=== PATIENT | female | born 1955 | race Caucasian/White ===

== ENCOUNTER 2019-06-24 08:24 | Outpatient (CLI) | payer MEDICARE, MEDICAID, SELFPAY ==
--- NOTE | 2019-06-24 08:59 | MM_ITS ---
WS: [id number] BILATERAL DIGITAL DIAGNOSTIC MAMMOGRAM MAMMOGRAPHY WITH CAD CLINICAL INFORMATION: RT BREAST LUMP/MASS COMPARISON: None. TECHNIQUE: Bilateral CC, MLO, and ML views. FINDINGS: Scattered fibroglandular densities bilaterally. Lucent centered calcifications left breast. Asymmetri c breast tissue upper outer right breast. This persists on spot compression views. Ultrasound is pend ing. No mammographic abnormalities in the area of palpable marker near the intramammary fold. Left breast appears unremarkable. ULTRASOUND BREAST RIGHT TECHNIQUE: Ultrasound right breast focused area of concern. CLINICAL INFORMATION: RT BREAST LUMP/MASS COMPARISON: None. FINDINGS: Ultrasound right breast at the inframammary fold 6:00 position. No pathologic mass or lesion in this area. Incidental vessel or duct is seen in this area. AT THE 10:00 POSITION is dense breast tissue with a hypoechoic slightly shadowing ill-defined lesion measuring 1.1 x 0.5 x 1.1 CM. THIS IS INDETERMINANT AND RECOMMEND FURTHER EVALUATION WITH ULTRASOUND- GUIDED BIOPSY. Additional vague ill-defined area at the 11:00 position may represent dense parenchymal tissue but is indeterminant and can be reevaluated when patient returns for biopsy. This area measures 7.3 x 6.9 x 8.1 mm. MM/[place] [id number] IMPRESSION: BI-RADS: 4B-Suspicious: Intermediate FOLLOW UP: US Guided Biopsy Recommended
== END 2019-06-24 08:25 | disposition home or self-care (01) ==
LOC: RADSHAW 08:30
PROVIDERS: Family Provider Family Medicine; PCP Family Medicine; Visit Provider Family Medicine
DX: N63.11 Unspecified lump in the right breast, upper outer quadrant (principal)
CPT/HCPCS: 76642; 77066

== ENCOUNTER → 2019-06-30 10:25 | Outpatient (BNVA) | payer MEDICARE, MEDICAID, SELFPAY | PROVIDERS: Family Provider Family Medicine; PCP Family Medicine; Visit Provider Nurse Practitioner Psychiatric/Mental Health | DX: F33.2 Major depressive disorder, recurrent severe without psychotic features (principal); F41.1 Generalized anxiety disorder | CPT/HCPCS: 90834; 99214; 99215 ==

== ENCOUNTER 2019-07-10 11:56 | Outpatient (CLI) | payer MEDICARE, MEDICAID, SELFPAY ==
--- NOTE | 2019-07-10 12:08 | US_ITS ---
WS: [id number] ULTRASOUND RIGHT BREAST HISTORY: RT BREAST LUMP/MASS COMPARISON: None available. TECHNIQUE: 2-D and Doppler. Patient presents for biopsy of asymmetries in the RIGHT breast at 10 and 11:00. After further ultraso und imaging these asymmetries are very poorly visualized and ill-defined. Cannot identify a discrete mass in 2 views. There does appear to be some prominent fibroglandular and fibrocystic change. At thi s time I do not believe biopsy is warranted. This is explained to the patient and she understands. FOLLOW-UP: 6 Month Follow-up Recommend diagnostic RIGHT breast mammogram and ultrasound follow-up in 6 months. If these asymmetrie s become more prominent and more discrete biopsy can be reconsidered. At this time there is no discre te mass for biopsy. US/US breast RT limited* [id number] IMPRESSION: BI-RADS: 3-Probably Benign
[2019-07-10 12:38] LABS: INR 0.93 (0.8-1.2)
== END 2019-07-10 11:57 | disposition home or self-care (01) ==
LOC: RADSHAW 12:03
PROVIDERS: Family Provider Family Medicine; PCP Family Medicine; Visit Provider Family Medicine
DX: N63.11 Unspecified lump in the right breast, upper outer quadrant (principal); Z01.812 Encounter for preprocedural laboratory examination
CPT/HCPCS: 19083; 36415; 76642; 85610

== ENCOUNTER → 2019-08-06 10:10 | Outpatient (BNVA) | payer MEDICARE, MEDICAID, SELFPAY | PROVIDERS: Family Provider Family Medicine; PCP Family Medicine; Visit Provider Social Worker | DX: F33.2 Major depressive disorder, recurrent severe without psychotic features (principal); F41.1 Generalized anxiety disorder | CPT/HCPCS: 90834 ==

== ENCOUNTER → 2019-09-22 08:13 | Outpatient (BNVA) | payer MEDICARE, MEDICAID, SELFPAY | PROVIDERS: Family Provider Family Medicine; PCP Family Medicine; Visit Provider Nurse Practitioner Psychiatric/Mental Health | DX: F33.2 Major depressive disorder, recurrent severe without psychotic features; F41.1 Generalized anxiety disorder | CPT/HCPCS: 99212 ==

== ENCOUNTER → 2019-09-24 13:50 | Outpatient (BNVA) | payer MEDICARE, MEDICAID, SELFPAY | PROVIDERS: Family Provider Family Medicine; PCP Family Medicine; Visit Provider Social Worker | DX: F33.2 Major depressive disorder, recurrent severe without psychotic features (principal); F41.1 Generalized anxiety disorder | CPT/HCPCS: 90832 ==

== ENCOUNTER 2019-11-17 13:49 | Outpatient (CLI) | payer MEDICARE, MEDICAID, SELFPAY ==
--- NOTE | 2019-11-17 13:58 | XR_ITS ---
WS: [id number] XR hip LT 2-3V wo/w pel* [id number] REASON FOR EXAM: LEFT HIP PAIN FINDINGS: The femoral head acetabulum appear to be within normal limits. The ilium, ischium, and pubis were normal. No fractures of the head, neck, are intertrochanteric area. The symphysis pubii shows degenerate changes. XR/XR hip LT 2-3V wo/w pel* [id number] IMPRESSION: Negative left hip Degenerate changes of the symphysis.
--- NOTE | 2019-11-17 13:58 | XR_ITS ---
WS: [id number] XR lumbar spine 2-3V* [id number] REASON FOR EXAM: LOW BACK PAIN/LEFT LUMBAR RADICULOPATHY FINDINGS: Degenerated disc changes L3-4, L4-5, L5-S1. No evidence of spondylolysis or spondylolisthesis. Lumbosacral angle was essentially normal. The lamina, pedicles, spinous processes transverse processes are all normal. XR/XR lumbar spine 2-3V* [id number] IMPRESSION: Degenerated disc changes L3-L4, L4-L5, L5-S1.
== END 2019-11-17 13:50 | disposition home or self-care (01) ==
LOC: RAD 13:54
PROVIDERS: PCP Family Medicine; Visit Provider Family Medicine
DX: M54.5 Low back pain (principal); M54.16 Radiculopathy, lumbar region; M25.552 Pain in left hip
CPT/HCPCS: 72100; 73502

== ENCOUNTER → 2019-12-01 07:44 | Outpatient (BNVA) | payer MEDICARE, MEDICAID, SELFPAY | PROVIDERS: PCP Family Medicine; Visit Provider Nurse Practitioner Psychiatric/Mental Health | DX: G89.29 Other chronic pain (principal); F33.2 Major depressive disorder, recurrent severe without psychotic features; F41.1 Generalized anxiety disorder | CPT/HCPCS: 99212 ==

== ENCOUNTER 2019-12-28 11:10 | Observation (INO) | payer MEDICARE, MEDICAID, SELFPAY ==
[2019-12-28] VITALS (12 sets, daily range): BP systolic 110–168; BP diastolic 66–107; PULSE 77–126; RESP 16–20; TEMP 36.6–37; O2SAT 92–98; BMI 45.6
--- NOTE | 2019-12-28 11:24 | ECG_ITS ---
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 Measurements Intervals [place] Rate: 106 P: MD: -1 QRS: 6 QRSD: 104 T: 63 QT: 364 QTc: 485 Interpretive Statements Sinus rhythm with PACs and PVCs. NONSPECIFIC ST & T-WAVE ABNORMALITY ABNORMAL RHYTHM ECG Compared to ECG 12/03/2018 17:18:57 Ventricular premature complex(es) now present T-wave abnormality now present Myocardial infarct finding no longer present Electronically Signed On 12-28-2019 19:06:16 CDT by Fabricio Rubi M.D. [email or web address] [email or web address].[email or web address]/store/OM/[id number]
--- NOTE | 2019-12-28 11:24 | XRR_ITS ---
PROCEDURE INFORMATION: Exam: XR Chest, 1 View Exam date and time: 12/28/2019 11:25 AM Age: 64 years old Clinical indication: Cardiovascular condition or disease; Atrial fibrillation; Additional info: Cp TECHNIQUE: Imaging protocol: XR of the chest Views: 1 view. COMPARISON: CR Chest 1 [place] [id number] 12/03/2018 6:52 PM FINDINGS: Lungs: Interval resolution of airspace disease in the left lingula and left lower lobe. Lungs are clear bilaterally. Pleural space: Interval resolution of a left pleural effusion. No pleural effusion. No pneumothorax. Heart/Mediastinum: Stable mild enlargement of the cardiac silhouette. Mediastinal contours are unremarkable. Vasculature: Stable vascular calcifications in the aorta. Bones/joints: Stable degenerative changes in the spine and shoulders. XR/XR chest 1V portable [id number] IMPRESSION: 1. No acute cardiopulmonary process. 2. Interval resolution of airspace disease in the left lingula and left lower lobe. 3. Interval resolution of a left pleural effusion. 4. Incidental/nonacute findings are listed in the report.
[2019-12-28 11:49] LABS: Basophils # 0.1 10^3/uL (0.0-0.1); Basophils % 0.9 %; Eosinophils # 0.4 10^3/uL (0.0-0.8); Eosinophils % 3.3 %; Hematocrit 51.8 % (37.0-47.0); Hemoglobin 16.8 g/dL (11.5-15.3); Lymphocytes # 2.5 10^3/uL (0.8-4.8); Lymphocytes % 22.1 %; Mean Corpuscular HGB Conc 32.4 g/dL (30.0-36.0); Mean Corpuscular Hemoglobin 27.3 pg (28.0-34.0); Mean Corpuscular Volume 84.2 fL (81-99); Mean Platelet Volume 11.1 fL (7.4-10.4); Monocytes # 0.9 10^3/uL (0.2-0.9); Monocytes % 7.7 %; Neutrophils % 65.6 %; Nucleated Red Blood Cells % 0 %; Platelet Count 293 10^3/cmm (130-400); Red Blood Count 6.15 10^6/uL (4.1-5.3); White Blood Count 11.1 10^3/uL (4.0-10.0)
--- NOTE | 2019-12-28 11:57 | W.ED.ARRPALP ---
HPI - Arrhythmia/Palpitations General: Chief Complaint: Arrhythmia/Palpitations Stated Complaint: ERRATIC HR/SOB/WEAKNESS Time Seen by Provider: 12/28/19 11:19 Source: patient Mode of arrival: ambulatory Limitations: no limitations History of Present Illness: HPI narrative: 64-year-old female who has a history of A. fib states she has had slight weakness along with palpitations today. She denies any worsening or improving factors. She had some mild chest pain as well. She denies any fevers or vomiting. Patient is in A. fib with heart rates in the 1 teens. Associated symptoms: Deny nausea or vomiting Review of Systems Const: Denies: fever(s), chills, body aches or change in appetite Eyes: Denies: blurry vision or eye discomfort ENMT: Denies: throat pain or dental pain Card: Reports: chest pain and palpitations Resp: Reports: dyspnea GI: Denies: abdominal pain, nausea, vomiting or diarrhea : Denies: dysuria Musc: Reports: muscle weakness Skin/Breast: Denies: rash Neuro: Denies: headache(s) Psych: Denies: depression David/Lymph: Denies: easy bruising All/Imm: Denies: urticaria PFSH ED PFSH: Medical History CAD (coronary artery disease) HTN (hypertension) Hypercholesteremia Surgical History H/O cardiac radiofrequency ablation Family History Mother Cancer breast Stroke Brother Heart disease Asthma Cancer prostate Sister Heart disease Social History Smoking and tobacco status: never smoked Alcohol intake: never Physical Exam Const: COMMON NORMALS: no acute distress, patient oriented x3 and healthy appearing HENMT: COMMON NORMALS: normocephalic and atraumatic HEAD & SCALP: normocephalic and atraumatic Eye: COMMON NORMALS: Equal, round and reactive pupils present and EOMs intact bilaterally PUPIL: Yes Equal, round and reactive pupils present Neck/C-Spine: COMMON NORMALS: full ROM and supple Chest: COMMONS NORMALS: normal inspection of the chest and normal palpation of entire chest wall Resp: COMMON NORMALS: normal respiratory effort, No retractions, No use of accessory muscles and clear to auscultation bilaterally AUSCULTATION: clear to auscultation bilaterally Cardio: COMMON NORMALS: No murmurs present (Cardio) RATE: tachycardic RHYTHM: abnormal rhythm irregularly irregular GI: COMMON NORMALS: Normal to inspection, nondistended, normoactive bowel sounds present, Soft to palpation, non-tender and no masses PALPATION: Yes Soft to palpation Extremity: COMMON NORMALS: normal to inspection and full ROM Neuro: COMMON NORMALS: patient oriented x3, moves all extremities and no focal motor deficits Psych: COMMON NORMALS: mental status grossly normal, Normal thought process present and cooperative THOUGHT PROCESS: Normal thought process present Skin: COMMON NORMALS: no rashes or lesions noted and no wounds GENERAL SKIN EXAM: no rashes or lesions noted Course Vital Signs: Vital signs: Vital Signs Temperature 97.8 F 12/28/19 11:22 Pulse Rate 107 H 12/28/19 14:42 Respiratory Rate 18 12/28/19 14:42 Blood Pressure 154/77 12/28/19 14:42 Pulse Oximetry 98 12/28/19 14:42 MDM - Arrhythmia/Palpitations MDM Narrative: Medical decision making narrative: Shauna presents here with palpitations and was in A. fib with RVR with heart rates in the 120s. Patient given 10 mg of Cardizem and heart rate is improved to the 80s. Patient still having generalized weakness and I spoke to hospitalist and will admit for observation. Second troponin is unchanged with no signs of acute coronary syndrome. Lab Data: Labs: Lab Results 12/28/19 12/28/19 12/28/19 Range/Units 11:37 11:37 11:37 WBC 11.1 H (4.0-10.0) 10^3/ uL RBC 6.15 H (4.1-5.3) 10^6/u L Hgb 16.8 H (11.5-15.3) g/dL Hct 51.8 H (37.0-47.0) % MCV 84.2 (81-99) fL MCH 27.3 L (28.0-34.0) pg MCHC 32.4 (30.0-36.0) g/dL RDW 15.0 (12.1-15.1) % Plt Count 293 (130-400) 10^3/c mm MPV 11.1 H (7.4-10.4) fL Neut % (Auto) 65.6 % Lymph % (Auto) 22.1 % [place] % (Auto) 7.7 % Eos % (Auto) 3.3 % Baso % (Auto) 0.9 % Neut # (Auto) 7.30 (1.8-7.7) 10^3/u L Lymph # (Auto) 2.5 (0.8-4.8) 10^3/u L [place] # (Auto) 0.9 (0.2-0.9) 10^3/u L Eos # (Auto) 0.4 (0.0-0.8) 10^3/u L Baso # (Auto) 0.1 (0.0-0.1) 10^3/u L Nucleated RBC % (a uto) 0 % Nucleated RBCs # 0.0 /100WBC Sodium 134 L (136-145) mmol/L Potassium 3.0 L (3.5-5.1) mmol/L Chloride 86 L (98-107) mmol/L Carbon Dioxide 32 H (22-29) mmol/L Anion Gap 19.0 (5-19) BUN 47 H (8-23) mg/dL Creatinine 1.7 H (0.5-0.9) mg/dL GFR Calculation 30.2 L (90-130) mL/min Glucose 325 H (65-115) mg/dL Calculated Osmolal ity 289 (285-295) mOsm/k g Calcium 10.2 (8.5-10.5) mg/dL Total Bilirubin 0.4 (0.15-1.2) mg/dL AST 21 (0-32) U/L ALT 22 (0-33) U/L Alkaline Phosphata se 89 (35-105) IU/L Troponin T Baselin e 31 H (0-10) ng/L Troponin T 120 Min [place] (0-10) ng/L Delta Troponin T (0-10) ABS# NT-Pro-B Natriuret Pep 420 H (0-125) pg/mL Total Protein 7.2 (6.6-8.7) g/dL Albumin 4.3 (3.5-5.2) g/dL Globulin 2.9 (1.3-4.6) g/dL 12/28/19 Range/Units 13:40 WBC (4.0-10.0) 10^3/ uL RBC (4.1-5.3) 10^6/u L Hgb (11.5-15.3) g/dL Hct (37.0-47.0) % MCV (81-99) fL MCH (28.0-34.0) pg MCHC (30.0-36.0) g/dL RDW (12.1-15.1) % Plt Count (130-400) 10^3/c mm MPV (7.4-10.4) fL Neut % (Auto) % Lymph % (Auto) % [place] % (Auto) % Eos % (Auto) % Baso % (Auto) % Neut # (Auto) (1.8-7.7) 10^3/u L Lymph # (Auto) (0.8-4.8) 10^3/u L [place] # (Auto) (0.2-0.9) 10^3/u L Eos # (Auto) (0.0-0.8) 10^3/u L Baso # (Auto) (0.0-0.1) 10^3/u L Nucleated RBC % (a uto) % Nucleated RBCs # /100WBC Sodium (136-145) mmol/L Potassium (3.5-5.1) mmol/L Chloride (98-107) mmol/L Carbon Dioxide (22-29) mmol/L Anion Gap (5-19) BUN (8-23) mg/dL Creatinine (0.5-0.9) mg/dL GFR Calculation (90-130) mL/min Glucose (65-115) mg/dL Calculated Osmolal ity (285-295) mOsm/k g Calcium (8.5-10.5) mg/dL Total Bilirubin (0.15-1.2) mg/dL AST (0-32) U/L ALT (0-33) U/L Alkaline Phosphata se (35-105) IU/L Troponin T Baselin e (0-10) ng/L Troponin T 120 Min [place] 30.18 H (0-10) ng/L Delta Troponin T -0.82 L (0-10) ABS# NT-Pro-B Natriuret Pep (0-125) pg/mL Total Protein (6.6-8.7) g/dL Albumin (3.5-5.2) g/dL Globulin (1.3-4.6) g/dL Imaging Data^: CXR: Radiologist's impression: [address] [address] XRay Report Signed Patient: Shauna Sena Unit #: [id number] : 1955 Age/Sex: 64 / F ADM Date: 12/28/19 Loc: ER Room/Bed: Attending Dr: Ordering Provider/Ordering MD: Nadeem Fontaine MD Date of Service: 12/28/19 Procedure(s): XR chest 1V portable [id number] Accession Number(s): [id number] Report Number: [id number] PROCEDURE INFORMATION: Exam: XR Chest, 1 View Exam date and time: 12/28/2019 11:25 AM Age: 64 years old Clinical indication: Cardiovascular condition or disease; Atrial fibrillation; Additional info: Cp TECHNIQUE: Imaging protocol: XR of the chest Views: 1 view. COMPARISON: CR Chest 1 [place] [id number] 12/03/2018 6:52 PM FINDINGS: Lungs: Interval resolution of airspace disease in the left lingula and left lower lobe. Lungs are clear bilaterally. Pleural space: Interval resolution of a left pleural effusion. No pleural effusion. No pneumothorax. Heart/Mediastinum: Stable mild enlargement of the cardiac silhouette. Mediastinal contours are unremarkable. Vasculature: Stable vascular calcifications in the aorta. Bones/joints: Stable degenerative changes in the spine and shoulders. XR/XR chest 1V portable [id number] IMPRESSION: 1. No acute cardiopulmonary process. 2. Interval resolution of airspace disease in the left lingula and left lower lobe. 3. Interval resolution of a left pleural effusion. 4. Incidental/nonacute findings are listed in the report. EKG Data^: EKG 1: Attestation: I personally reviewed and interpreted this EKG as follows: EKG interpretation date: 12/28/19 EKG interpretation time: 11:40 Interpretation: afib hr [address] or t wave abnormalities qrs 104 qtc 426 Other EKG comments: Chest X-Ray 12/28/19 11:24 IMPRESSION: 1. No acute cardiopulmonary process. 2. Interval resolution of airspace disease in the left lingula and left lower lobe. 3. Interval resolution of a left pleural effusion. 4. Incidental/nonacute findings are listed in the report. EKG 2: Attestation: I personally reviewed and interpreted this EKG as follows: EKG interpretation date: 12/28/19 EKG interpretation time: 13:36 Interpretation: afib hr [address] or t wave avnormalities qrs 106 qtc 441 Other EKG comments: Chest X-Ray 12/28/19 11:24 IMPRESSION: 1. No acute cardiopulmonary process. 2. Interval resolution of airspace disease in the left lingula and left lower lobe. 3. Interval resolution of a left pleural effusion. 4. Incidental/nonacute findings are listed in the report. Discharge Plan Discharge Patient Disposition: Admitted As Inpatient Clinical Impression: Weakness Atrial fibrillation Qualifiers: Atrial fibrillation type: unspecified Qualified Code(s): I48.91 - Unspecified atrial fibrillation Condition: Stable Referrals: Farhat Acosta MD [Primary Care Provider] - Coding Level of Care Code ED Health And Fitness Instructor for Chg Fwd Exam Comprehensive
[2019-12-28 12:17] LABS: Troponin(5th) Baseline 31 ng/L (0-10)
[2019-12-28 12:24] LABS: Alanine Aminotransferase 22 U/L (0-33); Albumin Level 4.3 g/dL (3.5-5.2); Alkaline Phosphatase 89 IU/L (35-105); Aspartate Amino Transferase 21 U/L (0-32); Blood Urea Nitrogen 47 mg/dL (8-23); Calcium 10.2 mg/dL (8.5-10.5); Carbon Dioxide 32 mmol/L (22-29); Chloride 86 mmol/L (98-107); Globulin 2.9 g/dL (1.3-4.6); Glomerular Filtration Rate 30.2 mL/min (90-130); Glucose 325 mg/dL (65-115); NT Pro B Type Natriuretic Pept 420 pg/mL (0-125); Osmolality Calculated 289 mOsm/kg (285-295); Sodium 134 mmol/L (136-145); Total Bilirubin 0.4 mg/dL (0.15-1.2); Total Protein 7.2 g/dL (6.6-8.7)
--- NOTE | 2019-12-28 13:24 | ECG_ITS ---
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 Measurements Intervals [place] Rate: 106 P: 102 AL: 115 QRS: 7 QRSD: 106 T: 54 QT: 379 QTc: 506 Interpretive Statements SINUS TACHYCARDIA WITH SHORT AL INTERVAL WITH FREQUENT SUPRAVENTRICULAR PREMATURE COMPLEXES NONSPECIFIC ST & T-WAVE ABNORMALITY ABNORMAL RHYTHM ECG Compared to ECG 12/28/2019 12:06:13 Short AL interval now present Atrial fibrillation no longer present T-wave abnormality still present Electronically Signed On 12-28-2019 19:10:08 CDT by Fabricio Rubi M.D. [email or web address].[employer]/store/OM/[id number]
[2019-12-28 14:08] LABS: Troponin 5 2HR 30.18 ng/L (0-10)
[2019-12-28 14:18] LABS: Troponin 5 2HR Delta -0.82 ABS# (0-10)
[2019-12-28] MEDS: potassium chloride ER 10 mEq Tablet 40 MEQ PO ×2 (14:42→20:49)
--- NOTE | 2019-12-28 14:46 | P.HP_ITS ---
Providers/Chief Complaint Primary Care Provider: Farhat Acosta MD Chief Complaint: ERRATIC HR/SOB/WEAKNESS History of Present Illness Shauna Sena is a 64 year old female who presents to the emergency department with feeling palpitations, significant weakness and dizziness for at least a week. She reports she has been a little nauseated as well. Some headache. No recent falls. Denies any fever, cough, COVID exposure. Denies any chest pain. No blood in her stool or black or tarry stools. She reports she has been taking her medicines as prescribed. While in the emergency department she was found to have a low potassium of 3.0. Heart rate was elevated consistent with atrial fibrillation with rapid ventricular rate and she received Cardizem 10 mg IV. Review of Systems Const: Reports: malaise; Denies: fever(s) Eyes: Denies: change in vision ENMT: Denies: throat pain Card: Reports: palpitations and lightheadedness; Denies: chest pain or syncope Resp: Denies: dyspnea GI: Denies: abdominal pain : Denies: flank pain Musc: Denies: neck pain Skin/Breast: Denies: rash Neuro: Reports: headache(s) Psych: Denies: anxiety Endo: Denies: polyuria David/Lymph: Denies: easy bruising All/Imm: Denies: urticaria Medications/Allergies Home Medications Medication Instructions Recorded Confirmed Last Taken Type albuterol sulfate 90 mcg/actuation 2 puff INHALATION Q6H PRN 06/30/19 12/28/19 Unknown History aerosol inhaler allopurinol 300 mg tablet 300 mg PO DAILY tab 06/30/19 12/28/19 12/28/19 History apixaban 5 mg tablet 5 mg PO BID 06/30/19 12/28/19 12/28/19 History docusate sodium 100 mg tablet 100 mg PO BID 06/30/19 12/28/19 12/27/19 History furosemide 40 mg tablet 80 mg PO BID tab 06/30/19 12/28/19 12/28/19 History hydrocodone 5 mg-acetaminophen 325 1 - 2 tab PO Q8H PRN tab 06/30/19 12/28/19 Unknown History mg tablet metoprolol tartrate 50 mg tablet 50 mg PO BID 06/30/19 12/28/19 12/28/19 History nitroglycerin 0.4 mg sublingual 0.4 mg SUBLINGUAL Q5M PRN 06/30/19 12/28/19 Unknown History tablet potassium chloride 20 mEq 20 meq PO BID 06/30/19 12/28/19 12/28/19 History tablet,extended release pregabalin 150 mg capsule 150 mg PO BEDTIME cap 06/30/19 12/28/19 12/27/19 History simvastatin 80 mg tablet 80 mg PO DAILY 06/30/19 12/28/19 12/27/19 History clopidogrel 75 mg tablet 75 mg PO DAILY tab 09/19/19 12/28/19 12/28/19 History levothyroxine 50 mcg capsule 50 mcg PO DAILY cap 09/19/19 12/28/19 12/28/19 History insulin human U-100 NPH-regulr 50 unit SUBCUT BID ml 11/14/19 12/28/19 12/28/19 History 70-30 mix 100 unit/mL subcutaneous susp buspirone 10 mg tablet 10 mg PO TID #90 tab 12/01/19 12/28/19 12/28/19 Rx lorazepam 1 mg tablet 1 mg PO ONCE PRN #30 tab MDD daily 12/02/19 12/28/19 Unknown Rx cyclobenzaprine 10 mg PO Q8H PRN 12/28/19 12/28/19 Unknown History diltiazem HCl 120 mg PO DAILY 12/28/19 12/28/19 12/28/19 History insulin glargine [Lantus U-100 70 unit SUBCUT DAILY 12/28/19 12/28/19 12/28/19 History Insulin] metolazone 5 mg PO BID 12/28/19 12/28/19 12/28/19 History sertraline 150 mg PO DAILY 12/28/19 12/28/19 12/27/19 History Allergies Allergy/AdvReac Type Severity Reaction Status Date / Time morphine Allergy Severe Quit Verified 12/28/19 12:29 breathing shellfish derived AdvReac Severe Hives & Verified 12/28/19 12:29 throat swells meperidine [From Demerol] AdvReac Intermediate Made N & V Verified 12/28/19 12:29 Penicillins AdvReac Intermediate RAsh Verified 12/28/19 12:29 PFSH Acute PFSH: Medical History (Updated 12/28/19 @ 15:13 by Surinder Farrar MD) Amiodarone pulmonary toxicity CAD (coronary artery disease) Last echocardiogram 08/06 with EF of 50% Chronic pain She reports taking pain medicines and muscle relaxers for a recent back injury; she has chronic left leg pain. Chronic respiratory failure CKD (chronic kidney disease) Depression Diabetes mellitus Fibromyalgia Gout HTN (hypertension) Hypercholesteremia Hyperlipidemia Hypothyroidism Major depressive disorder, recurrent severe without psychotic features Surgical History (Updated 12/28/19 @ 14:50 by Surinder Farrar MD) H/O cardiac radiofrequency ablation H/O section H/O eye surgery H/O left knee surgery History of back surgery History of carpal tunnel release History of coronary artery stent placement History of hysterectomy partial Hx of cholecystectomy Family History Mother Cancer breast Stroke Brother Heart disease Asthma Cancer prostate Sister Heart disease Social History (Updated 12/28/19 @ 14:51 by Surinder Farrar MD) Smoking and tobacco status: never smoked Alcohol intake: never Substance/Drug Use: never Vitals/I&O/Wt Last Vital Signs Temp 97.8 F 12/28/19 11:22 Pulse 107 H 12/28/19 14:42 Resp 18 12/28/19 14:42 BP 154/77 12/28/19 14:42 Pulse Ox 98 12/28/19 14:42 Weight last 48 hrs Weight 136.078 kg Physical Exam Narrative: EXAM NARRATIVE: General exam is a white female, who reports she is tired and has a headache, in no obvious distress HEENT: Pupils equally round. Oropharynx is clear. Neck is supple no lymphadenopathy or thyromegaly Cardiovascular regular rate and rhythm without murmur, no S3 or S4 Lungs clear. Diminished breath sounds are noted bilaterally. No wheezes. Abdomen is soft, obese. No obvious organomegaly was deferred Extremities no cyanosis clubbing or edema, refill brisk Skin no rash Neuro no focal deficits Data : 12/28/19 11:37 12/28/19 11:37 Other data: Initial EKG demonstrates atrial fibrillation with rapid ventricular rate with a heart rate of about 110 with normal axis and nonspecific ST-T wave changes. Chest x-ray is negative for any infiltrate Troponin elevated at 31 with repeat of 30.1 indicating no significant delta. BNP elevated at 420, improved from last BNP done in mid November of 710. LFTs normal A&P Assessment and plan (1) Atrial fibrillation: With rapid ventricular rate in the emergency department. She received Cardizem 10 mg IV x1 with good results. Continue the patient's home Cardizem 120 mg extended release once daily Increase patient's home metoprolol from 50 to 75 mg twice daily Monitor heart rate on telemetry. Check TSH Continue Eliquis for anticoagulation Telemetry Status: Acute Qualifiers: Atrial fibrillation type: unspecified Qualified Code(s): I48.91 - Unspecified atrial fibrillation (2) Hypokalemia: Replace potassium. She received 1 oral dose in the emergency department of 40 mEq. I will write for another one in approximately 6 hours. Check magnesium level Status: Acute (3) Weakness: I think this is likely secondary to her hypokalemia and atrial fib rillation. Monitor for improvement. Status: Acute Additional A&P Information Elevated troponin. Type II. No evidence of acute myocardial infarction. No concerning EKG changes. Patient has no chest pain. 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 Continue oxygen currently. Chronic kidney disease. May have an acute component. Hold Zaroxolyn. Type 2 diabetes. Continue long-acting insulin. Add sliding scale. Hypertension. Continue home medicines Possible history of CHF. I could not confirm but she is on quite a bit of diuretics. Continue Lasix but hold metolazone currently as renal function may be slightly worse, and she does not appear to be significantly fluid overloaded. Hypothyroidism, check TSH Multiple other medical problems as outlined in past medical history Full code Eliquis will suffice for DVT prophylaxis Attestations Medical Necessity Statement*: Will need less than 2 midnight stay for evaluation of atrial fibrillation with rapid ventricular rate and hypokalemia Time Spent in Patient Care: Greater than 35 minutes Coding Level of Care Code Acute Nursing Executive for Gerson Morgan Diagnoses Atrial fibrillation I48.91 Atrial fibrillation type: unspecified Hypokalemia E87.6 Weakness R53.1
[2019-12-28] MEDS: HYDROcodone-acetaminophen 5-325 mg Tablet 2 TAB PO (14:55)
[2019-12-28] MEDS: ondansetron 2 mg/ML SDV 2 mL 4 MG IVP ×2 (14:55→15:08)
[2019-12-28] MEDS: ketorolac 30 mg/mL INJ 15 MG IVP (15:08)
[2019-12-28 15:24] LABS: Magnesium 1.9 mg/dL (1.7-2.3); Thyroid Stimulating Hormone 2.02 uIU/mL (0.27-4.20)
[2019-12-28 15:55] LABS: Glucose Point of Care 368 mg/dL (70-110)
--- NOTE | 2019-12-28 17:24 | ECG_ITS ---
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 Measurements Intervals [place] Rate: 105 P: IN: -1 QRS: 11 QRSD: 108 T: 63 QT: 389 QTc: 516 Interpretive Statements Multifocal atrial tachycardia NONSPECIFIC ST & T-WAVE ABNORMALITY ABNORMAL RHYTHM ECG Compared to ECG 12/28/2019 11:40:29 Ventricular premature complex(es) no longer present Aberrant conduction of supraventricular beat(s) no longer present T-wave abnormality still present Electronically Signed On 12-28-2019 19:09:45 CDT by Fabricio Rubi M.D. [id number]
[2019-12-28] MEDS: metoprolol tartrate 50 mg Tablet 75 MG PO (17:35)
[2019-12-28] MEDS: apixaban 5 mg Tablet PO (17:35)
[2019-12-28] MEDS: FUROsemide 40 mg Tablet 80 MG PO (17:35)
[2019-12-28] MEDS: potassium chloride ER 10 mEq Tablet 20 MEQ PO (17:35)
[2019-12-28] MEDS: docusate sodium 100 mg Capsule PO (17:36)
[2019-12-28] MEDS: BuSPIRONE 10 mg Tablet PO ×2 (17:36→20:48)
[2019-12-28 17:56] LABS: Troponin 5 6HR 32.13 ng/L (0-10); Troponin 5 6HR Delta 1.13 ng/L (0-12)
[2019-12-28 18:12] LABS: Add Urine Microscopic? NO
[2019-12-28 18:22] LABS: Bilirubin Urine Neg (NEGATIVE); Blood Urine Neg (Negative); Glucose Urine UA 4+ (Normal); Ketones Urine Negative (Negative); Leukocyte Esterase Urine Negative (Negative); Nitrate Urine Negative (Negative); Protein Urine Neg (Negative); Urine Appearance Clear (CLEAR); Urine Color Straw (Yellow); Urobilinogen Urine Norm (Negative); pH Urine 5 (5-7)
--- NOTE | 2019-12-28 19:26 | PC.NURSE ---
Rounding: Patient is resting in bed watching TV. Patient denies any pain or needs at this time. Will continue to montior.
[2019-12-28 20:39] LABS: Glucose Point of Care 363 mg/dL (70-110)
[2019-12-28] MEDS: pregabalin 150 mg Capsule PO (20:49)
[2019-12-29] VITALS (7 sets, daily range): BP systolic 113–142; BP diastolic 72–81; PULSE 73–82; RESP 16–19; TEMP 36.4–36.8; O2SAT 95–97
[2019-12-29 04:12] LABS: Basophils # 0.1 10^3/uL (0.0-0.1); Basophils % 0.8 %; Eosinophils # 0.6 10^3/uL (0.0-0.8); Eosinophils % 6.7 %; Hematocrit 49.5 % (37.0-47.0); Hemoglobin 15.9 g/dL (11.5-15.3); Lymphocytes # 1.8 10^3/uL (0.8-4.8); Lymphocytes % 19.5 %; Mean Corpuscular HGB Conc 32.1 g/dL (30.0-36.0); Mean Corpuscular Hemoglobin 28.1 pg (28.0-34.0); Mean Corpuscular Volume 87.6 fL (81-99); Mean Platelet Volume 11.4 fL (7.4-10.4); Monocytes # 0.9 10^3/uL (0.2-0.9); Monocytes % 9.2 %; Neutrophils # 5.98 10^3/uL (1.8-7.7); Neutrophils % 63.3 %; Nucleated Red Blood Cells % 0 %; Platelet Count 259 10^3/cmm (130-400); Red Blood Count 5.65 10^6/uL (4.1-5.3); Red Cell Distribution Width 15.1 % (12.1-15.1); White Blood Count 9.5 10^3/uL (4.0-10.0)
[2019-12-29 04:34] LABS: Alanine Aminotransferase 18 U/L (0-33); Albumin Level 3.8 g/dL (3.5-5.2); Alkaline Phosphatase 80 IU/L (35-105); Anion Gap 16.1 (5-19); Aspartate Amino Transferase 18 U/L (0-32); Blood Urea Nitrogen 55 mg/dL (8-23); Calcium 9.9 mg/dL (8.5-10.5); Carbon Dioxide 33 mmol/L (22-29); Chloride 91 mmol/L (98-107); Globulin 2.8 g/dL (1.3-4.6); Glomerular Filtration Rate 26.5 mL/min (90-130); Glucose 250 mg/dL (65-115); Osmolality Calculated 291 mOsm/kg (285-295); Potassium 3.1 mmol/L (3.5-5.1); Sodium 137 mmol/L (136-145); Total Bilirubin 0.3 mg/dL (0.15-1.2); Total Protein 6.6 g/dL (6.6-8.7)
--- NOTE | 2019-12-29 05:47 | PC.NURSE ---
End of shift: Patient had a uneventful shift. Patient rested well. PAtient had no complaints of pain or discomfort. Vitals remains stable.
[2019-12-29 06:24] LABS: Glucose Point of Care 285 mg/dL (70-110)
[2019-12-29] MEDS: metoprolol tartrate 50 mg Tablet 75 MG PO ×2 (08:07→17:03)
[2019-12-29] MEDS: FUROsemide 40 mg Tablet 80 MG PO ×2 (08:07→17:02)
[2019-12-29] MEDS: sertraline 100 mg Tablet 150 MG PO (08:08)
[2019-12-29] MEDS: levothyroxine 50 mcg Tablet PO (08:09)
[2019-12-29] MEDS: apixaban 5 mg Tablet PO ×2 (08:09→17:02)
[2019-12-29] MEDS: potassium chloride ER 10 mEq Tablet 20 MEQ PO (08:10)
[2019-12-29] MEDS: allopurinol 300 mg Tablet PO (08:10)
[2019-12-29] MEDS: insulin glargine 100 units/1 mL 70 UNIT SUBCUT (08:10)
[2019-12-29] MEDS: docusate sodium 100 mg Capsule PO ×2 (08:10→17:02)
[2019-12-29] MEDS: BuSPIRONE 10 mg Tablet PO ×2 (08:10→14:14)
[2019-12-29] MEDS: dilTIAZem ER (24HR) 120 mg Capsule PO (08:10)
[2019-12-29] MEDS: clopidogrel 75 mg Tablet PO (08:10)
[2019-12-29] MEDS: atorvastatin 40 mg Tablet 80 MG PO (08:10)
--- NOTE | 2019-12-29 08:50 | PC.NURSE ---
[id number] DR Acosta at bedside for assessment and POC; wound cultures collected from Panchito peters and Arthur barragan
[2019-12-29] MEDS: levofloxacin-dextrose 5 % 500 MG/100 ML PREMIX 100 MG IV (09:04)
[2019-12-29] MEDS: potassium chloride ER 10 mEq Tablet 40 MEQ PO ×2 (09:05→17:02)
--- NOTE | 2019-12-29 10:13 | PC.CHAP ---
Pastoral Care Encounter/Spiritual Assessment Type of Contact [] Declined diploma pharmacy technician visit [] Patient/Family/Request visit [] Outpatient visit [] Follow-up visit [] Physician referral [] Code/Alert [x] Routine visit [] Staff referral [] Actively dying [] Patient sleeping [] Family support [] [] Out of room [] Palliative care [] [] Receiving care in room [] Pre-surgical visit [] Trauma [] Long length of stay [] ICU visit [] Other: Relational/Emotional Strength [x] Patient feels connected with others/family/visitors/staff [] Distress [] Loneliness/isolation [] Abandonment Spirituality of Patient [x] Person of [place] [] Attends Judaism of their [place] [x] Believes in Prayer [] Reads Bible or Anabaptism materials [] There are Spiritual issues to be addressed Rectification Printer Interventions [x] Prayer [] Active listening [] Non-anxious presence [] Spiritual/emotional support [] Crisis/trauma care []x Spiritual counseling [] Bereavement support [] Provided bereavement packet [] Provided Bible/devotional materials [] Provided toy/stuffed animal, coloring book to patient or family member [] Provided Communion [] Anointing/Voca [] Salvation [] Completed spiritual assessment [] Other: Impact on Illness or Injury [] Angry [] Fearful [] Anxious [] Often cries [] Exhaustion [] Unable to work [] Unable to attend baptist [] Unable to walk/stand [] Unable to read [] Unable to drive [] Unable to eat/drink [] Unable to sleep [] Unable to be with family [] Patient intubated [] Other: Summary feeling better Time spent with patient 10 min
[2019-12-29 11:20] LABS: Glucose Point of Care 409 mg/dL (70-110)
--- NOTE | 2019-12-29 13:21 | PC.NURSE ---
Visitor Audrey Prasad Daughter phone number [phone]
[2019-12-29] MEDS: acetaminophen 325 mg Tablet 650 MG PO (15:01)
--- NOTE | 2019-12-29 15:45 | PC.NURSE ---
PT at bedside for treatment.
[2019-12-29 16:08] LABS: Glucose Point of Care 314 mg/dL (70-110)
[2019-12-29 16:28] LABS: Anion Gap 14.3 (5-19); Blood Urea Nitrogen 48 mg/dL (8-23); Calcium 9.3 mg/dL (8.5-10.5); Carbon Dioxide 34 mmol/L (22-29); Chloride 87 mmol/L (98-107); Glomerular Filtration Rate 28.2 mL/min (90-130); Glucose 353 mg/dL (65-115); Osmolality Calculated 286 mOsm/kg (285-295); Potassium 3.3 mmol/L (3.5-5.1); Sodium 132 mmol/L (136-145)
--- NOTE | 2019-12-29 18:01 | PM.DCS ---
Discharge Providers Date of Admission: 12/28/19 14:59 Date of Discharge: December 29, 2019 Attending Provider at Admission: Surinder Farrar MD Attending Provider at Discharge: Surinder Farrar MD Primary Care Provider: Farhat Acosta MD Diagnoses at Discharge Discharge Diagnosis (1) Atrial fibrillation: Status: Acute Qualifiers: Atrial fibrillation type: unspecified Qualified Code(s): I48.91 - Unspecified atrial fibrillation (2) Hypokalemia: Status: Acute (3) Weakness: Status: Acute (4) Diarrhea: Status: Acute (5) Cellulitis: Status: Acute Reason for Visit Reason for Visit: ERRATIC HR/SOB/WEAKNESS Hospital Course Hospital Course: The patient presented to the emergency department with concern for weakness and was found to be in A. fib with RVR. The patient was given diltiazem and her metoprolol was increased to 75 mg twice a day. The patient's A. fib improved and she has been in normal sinus rhythm with sinus arrhythmia. Her heart rate has been in the 70s throughout the day. She is ambulating well and has some mild weakness, however no significant dizziness, chest pain or shortness of breath. The patient had also had some loose stools for the last few days and this was likely the underlying cause of her hypokalemia. Hypokalemia could have led to her above A. fib. The patient's potassium was replaced and the patient is feeling better. She will be given 40 mEq twice a day for the next few days and we will likely decrease back to 20 mEq twice a day after that. The patient's loose stools have improved and she has not had a bowel movement today. The patient also noted that she had a draining abscess in her right proximal arm as well as in the vaginal area. A wound culture was taken of the left vaginal abscess as well as the right arm abscess. Purulent fluid was noted from both. There was a malodorous discharge from the vaginal area. There were signs of cellulitis and the patient was placed on vancomycin and Levaquin IV. The infection is not significant enough to necessitate further inpatient therapy and she will be discharged on Levaquin by mouth. If this is not improving, further I&D may be necessary. Cultures are pending and we can change antibiotics if needed. The patient did have weakness upon admission and this is likely secondary to the above reasons. The patient was not able to ambulate 250 feet with physical therapy today. She is feeling better and we will plan for discharge home this evening. She is to follow-up with me over the next 2 to 3 days to be sure that she is continuing to improve. All questions were answered. The patient is in agreement with discharge home at this time. Physical Exam Narrative: EXAM NARRATIVE: General: Alert and oriented x3 Mouth: Mucous membranes moist without lesions Neck: No lymphadenopathy noted Cardiac: Irregularly irregular rhythm with normal rate. Lungs: Clear to auscultation bilaterally without wheezes, crackles or rhonchi Abdomen: No significant hepatosplenomegaly. Nontender. Extremities: There is a 1.5 cm lesion on the right upper arm near the axilla that is draining. A culture was taken and the fluid was drained. Genitalia: There are signs of cellulitis in the vaginal area with an abscess consistent with folliculitis on the left labia. Pressure was placed and a small amount of purulent fluid drained. Culture was taken from this. Extremities: Trace edema in the bilateral lower extremities Discharge Data Data Completed and Pending: Completed Studies During Hospitalization Category Date Time Status XR chest 1V juaquin ble [id number] Stat Exams 12/28/19 11:24 Completed Pending at discharge Category Date Time Status Clostridioides Di fficile PCR Routin e Lab 12/29/19 08:50 Uncollected Vancomycin Trough Timed Lab 12/31/19 09:30 Ordered Wound Culture and Gram Stain Stat Lab 12/29/19 08:45 Results Wound Culture and Gram Stain Stat Lab 12/29/19 08:45 Results Labs from last 24 hours 12/29/19 12/29/19 12/29/19 15:36 15:18 10:49 WBC RBC Hgb Hct MCV MCH MCHC RDW Plt Count MPV Neut % (Auto) Lymph % (Auto) [place] % (Auto) Eos % (Auto) Baso % (Auto) Neut # (Auto) Lymph # (Auto) [place] # (Auto) Eos # (Auto) Baso # (Auto) Nucleated RBC % (a uto) Nucleated RBCs # Sodium 132 L Potassium 3.3 L Chloride 87 L Carbon Dioxide 34 H Anion Gap 14.3 BUN 48 H Creatinine 1.8 H GFR Calculation 28.2 L Glucose 353 H POC Glucose 314 409 Calculated Osmolal ity 286 Calcium 9.3 Total Bilirubin AST ALT Alkaline Phosphata se Troponin T Hi Sens 6Hr Delta Total Protein Albumin Globulin Urine Color Urine Appearance Urine pH Ur Specific Gravit y Urine Protein Urine Glucose (UA) Urine Ketones Urine Blood Urine Nitrate Urine Bilirubin Urine Urobilinogen Ur Leukocyte Lynda ase 12/29/19 12/29/19 12/29/19 06:11 03:20 03:20 WBC 9.5 RBC 5.65 H Hgb 15.9 H Hct 49.5 H MCV 87.6 MCH 28.1 MCHC 32.1 RDW 15.1 Plt Count 259 MPV 11.4 H Neut % (Auto) 63.3 Lymph % (Auto) 19.5 [place] % (Auto) 9.2 Eos % (Auto) 6.7 Baso % (Auto) 0.8 Neut # (Auto) 5.98 Lymph # (Auto) 1.8 [place] # (Auto) 0.9 Eos # (Auto) 0.6 Baso # (Auto) 0.1 Nucleated RBC % (a uto) 0 Nucleated RBCs # 0.0 Sodium 137 Potassium 3.1 L Chloride 91 L Carbon Dioxide 33 H Anion Gap 16.1 BUN 55 H Creatinine 1.9 H GFR Calculation 26.5 L Glucose 250 H POC Glucose 285 Calculated Osmolal ity 291 Calcium 9.9 Total Bilirubin 0.3 AST 18 ALT 18 Alkaline Phosphata se 80 Troponin T Hi Sens 6Hr Delta Total Protein 6.6 Albumin 3.8 Globulin 2.8 Urine Color Urine Appearance Urine pH Ur Specific Gravit y Urine Protein Urine Glucose (UA) Urine Ketones Urine Blood Urine Nitrate Urine Bilirubin Urine Urobilinogen Ur Leukocyte Lynda ase 12/28/19 12/28/19 12/28/19 20:36 17:37 14:50 WBC RBC Hgb Hct MCV MCH MCHC RDW Plt Count MPV Neut % (Auto) Lymph % (Auto) [place] % (Auto) Eos % (Auto) Baso % (Auto) Neut # (Auto) Lymph # (Auto) [place] # (Auto) Eos # (Auto) Baso # (Auto) Nucleated RBC % (a uto) Nucleated RBCs # Sodium Potassium Chloride Carbon Dioxide Anion Gap BUN Creatinine GFR Calculation Glucose POC Glucose 363 Calculated Osmolal ity Calcium Total Bilirubin AST ALT Alkaline Phosphata se Troponin T Hi Sens 6Hr Delta 1.13 Total Protein Albumin Globulin Urine Color Straw Urine Appearance Clear Urine pH 5 Ur Specific Gravit y 1.010 Urine Protein Neg Urine Glucose (UA) 4+ H Urine Ketones Negative Urine Blood Neg Urine Nitrate Negative Urine Bilirubin Neg Urine Urobilinogen Norm Ur Leukocyte Lynda ase Negative Vitals: Last Vital Signs Temp 98.0 F 12/29/19 14:54 Pulse 73 12/29/19 17:30 Resp 19 H 12/29/19 17:30 BP 138/74 12/29/19 17:30 Pulse Ox 96 12/29/19 14:54 Discharge Plan Discharge Patient Disposition: Home, Self-Care Condition: Stable Prescriptions: New levofloxacin 500 mg tablet 500 mg PO DAILY 10 Days Qty: 10 RF: 0 Continued hydrocodone-acetaminophen 5-325 mg tablet 1 - 2 tab PO Q8H PRN (Reason: Pain) RF: 0 allopurinol 300 mg tablet 300 mg PO DAILY RF: 0 apixaban 5 mg tablet 5 mg PO BID RF: 0 docusate sodium 100 mg tablet 100 mg PO BID RF: 0 furosemide [Lasix] 40 mg tablet 80 mg PO BID RF: 0 nitroglycerin 0.4 mg tablet, sublingual 0.4 mg SUBLINGUAL Q5M PRN (Reason: Chest Pain) RF: 0 pregabalin [Lyrica] 150 mg capsule 150 mg PO BEDTIME RF: 0 simvastatin 80 mg tablet 80 mg PO DAILY RF: 0 albuterol sulfate [ProAir HFA] 90 mcg/actuation HFA aerosol inhaler 2 puff INHALATION Q6H PRN (Reason: Shortness Of Breath) RF: 0 clopidogrel 75 mg tablet 75 mg PO DAILY RF: 0 levothyroxine 50 mcg capsule 50 mcg PO DAILY RF: 0 Humulin 70/30 U-100 Insulin 100 unit/mL (70-30) suspension 50 unit SUBCUT BID RF: 0 buspirone 10 mg tablet 10 mg PO TID Qty: 90 RF: 1 lorazepam 1 mg tablet 1 mg PO ONCE MDD daily PRN (Reason: anxiety) Qty: 30 RF: 1 cyclobenzaprine 10 mg tablet 10 mg PO Q8H PRN (Reason: muscle spams) RF: 0 Lantus U-100 Insulin 100 unit/mL solution 70 unit SUBCUT DAILY RF: 0 metolazone 5 mg tablet 5 mg PO BID RF: 0 sertraline 100 mg tablet 150 mg PO DAILY RF: 0 diltiazem HCl 120 mg capsule,extended release 24hr 120 mg PO DAILY RF: 0 Changed metoprolol tartrate 50 mg tablet 75 mg PO BID Qty: 90 RF: 0 potassium chloride 20 mEq tablet extended release 40 meq PO BID Qty: 0 RF: 0 Discharge Orders: Discharge Order (Routine); Ordered 12/29/19 Ordered By: Farhat Acosta Referrals: Farhat Acosta MD [Primary Care Provider] - 1-3 days ([facility] will be calling to schedule a hospital followup with Dr. Acosta to be seen in 1 to 3 days. If you don't hear from them by tomorrow late morning, please give the a call. Thank you) Discharge Diet: Usual diet, Cardiac and Diabetic Discharge Activity: Increase activity as tolerated Discharge Attestations Time Spent in Discharge Care*: greater than 30 min Quality Metrics Clinical Quality Measures During this hospital stay, did patient experience: None Coding Level of Care Code Acute Television Presenter for Gerson Fwd Diagnoses Atrial fibrillation I48.91 Atrial fibrillation type: unspecified Hypokalemia E87.6 Weakness R53.1 Diarrhea R19.7 Cellulitis L03.90
--- NOTE | 2019-12-29 18:37 | PC.NURSE ---
Addendum entered by Miguelina Perry RN 12/29/19 18:44: Patient discharged home copy of discharge instructions and education provided to patient, IV discontinued. Patient verbalized understanding of all education. All patient belongings as well as discharge instructions in hand. Original Note: Patient discharged left floor via w/c at 1833.
--- NOTE | 2020-01-02 09:59 | PC.SOCIAL ---
Notified Nelda in micro that the wound culture showing MRSA will need to be called to Dr Acosta office since he was the discharging physician and she is seen for primary care at that clinic.
== END 2019-12-29 18:33 | disposition home or self-care (01) ==
LOC: ER 14:15 → CSU 15:01
PROVIDERS: Emergency Medicine; Admitting Provider Internal Medicine; PCP Family Medicine; Visit Provider Internal Medicine
DX: I48.91 Unspecified atrial fibrillation (principal); E87.6 Hypokalemia; E53.1 Pyridoxine deficiency; R19.7 Diarrhea, unspecified; L03.90 Cellulitis, unspecified; R79.89 Other specified abnormal findings of blood chemistry; I25.10 Atherosclerotic heart disease of native coronary artery without angina pectoris; E11.22 Type 2 diabetes mellitus with diabetic chronic kidney disease; I12.9 Hypertensive chronic kidney disease with stage 1 through stage 4 chronic kidney disease, or unspecified chronic kidney disease; N18.9 Chronic kidney disease, unspecified; E03.9 Hypothyroidism, unspecified; Z79.891 Long term (current) use of opiate analgesic; Z79.4 Long term (current) use of insulin; E78.5 Hyperlipidemia, unspecified
CPT/HCPCS: 12345; 36415; 36416; 71045; 80048; 80053; 81003; 82962; 83735; 83880; 84443; 84484; 85025; 87070; 87077; 87186; 87205; 93005; 96365; 96366; 96372; 96375; 97161; 97530; 99284; G0378; J1815 ×2; J1885; J1956; J2405; J3370; J3490; J7040

== ENCOUNTER → 2020-01-12 07:49 | Outpatient (BNVA) | payer MEDICARE, MEDICAID, SELFPAY | PROVIDERS: PCP Family Medicine; Visit Provider Nurse Practitioner Psychiatric/Mental Health | DX: F33.2 Major depressive disorder, recurrent severe without psychotic features (principal); F41.1 Generalized anxiety disorder; G89.29 Other chronic pain; R68.89 Other general symptoms and signs | CPT/HCPCS: 99212 ==

== ENCOUNTER → 2020-03-08 08:16 | Outpatient (BNVA) | payer MEDICARE, MEDICAID, SELFPAY | PROVIDERS: PCP Family Medicine; Visit Provider Nurse Practitioner Psychiatric/Mental Health | DX: F41.1 Generalized anxiety disorder (principal); G89.29 Other chronic pain; F33.2 Major depressive disorder, recurrent severe without psychotic features | CPT/HCPCS: 99212 ==

== ENCOUNTER 2020-04-05 16:38 | Inpatient (IN) | payer MEDICARE, MEDICAID, SELFPAY ==
[2020-04-05 16:42] VITALS: BP 139/78; PULSE 79; RESP 20; TEMP 37.5; O2SAT 93; BMI 42.4
--- NOTE | 2020-04-05 17:27 | XRR_ITS ---
PROCEDURE INFORMATION: Exam: XR Chest, 1 View Exam date and time: 04/05/2020 7:48 PM Age: 64 years old Clinical indication: Cough and shortness of breath; Prior surgery; Surgery type: Ablasion heart; Additional info: Cough and SOB TECHNIQUE: Imaging protocol: XR of the chest Views: 1 view. COMPARISON: CR (CHEST, ) 12/28/2019 11:53 AM FINDINGS: Lungs: Mild prominence and indistinctness of the pulmonary vasculature centrally. Mild prominence of the interstitium diffusely suggest mild edema. Pleural space: Unremarkable. No pleural effusion. No pneumothorax. Heart/Mediastinum: Cardiomegaly. Bones/joints: Unremarkable. XR/XR chest 1V portable [id number] IMPRESSION: Mild edema reflected predominantly as interstitial prominence as described above
[2020-04-05 19:46] LABS: Basophils # 0.1 10^3/uL (0.0-0.1); Basophils % 0.6 %; Eosinophils # 0.2 10^3/uL (0.0-0.8); Eosinophils % 1.3 %; Hematocrit 42.8 % (37.0-47.0); Hemoglobin 13.4 g/dL (11.5-15.3); Lymphocytes # 1.6 10^3/uL (0.8-4.8); Lymphocytes % 12.6 %; Mean Corpuscular HGB Conc 31.3 g/dL (30.0-36.0); Mean Corpuscular Hemoglobin 28.2 pg (28.0-34.0); Mean Corpuscular Volume 90.1 fL (81-99); Mean Platelet Volume 10.8 fL (7.4-10.4); Monocytes # 0.8 10^3/uL (0.2-0.9); Monocytes % 6.3 %; Neutrophils # 10.07 10^3/uL (1.8-7.7); Neutrophils % 78.7 %; Nucleated Red Blood Cells % 0 %; Platelet Count 268 10^3/cmm (130-400); Red Blood Count 4.75 10^6/uL (4.1-5.3); Red Cell Distribution Width 15.1 % (12.1-15.1); White Blood Count 12.8 10^3/uL (4.0-10.0)
[2020-04-05 20:02] LABS: Alanine Aminotransferase 23 U/L (0-33); Albumin Level 3.7 g/dL (3.5-5.2); Alkaline Phosphatase 91 IU/L (35-105); Anion Gap 16.2 (5-19); Aspartate Amino Transferase 27 U/L (0-32); Blood Urea Nitrogen 39 mg/dL (8-23); Calcium 9.8 mg/dL (8.5-10.5); Carbon Dioxide 30 mmol/L (22-29); Chloride 95 mmol/L (98-107); Globulin 3.5 g/dL (1.3-4.6); Glomerular Filtration Rate 32.3 mL/min (90-130); Glucose 215 mg/dL (65-115); Osmolality Calculated 302 mOsm/kg (285-295); Potassium 3.2 mmol/L (3.5-5.1); Sodium 138 mmol/L (136-145); Total Bilirubin 0.4 mg/dL (0.15-1.2); Total Protein 7.2 g/dL (6.6-8.7)
--- NOTE | 2020-04-05 20:21 | ED_ITS ---
HPI - SOB/Dyspnea General: Chief Complaint: Shortness of Breath/Dyspnea Stated Complaint: fever/cough/sob/ says filling with fluid Time Seen by Provider: 04/05/20 19:19 History of Present Illness: HPI Narrative: This patient is a 64-year-old female who presents with shortness of breath. She has a history of CHF and COPD. 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 She uses 3 L of oxygen at home. In the last couple of days she is felt like she needed to use more and has trended up to 4. She has been taking her normal diuretics and has been urinating a lot but feels like she is retaining fluid. She takes 80 mg of Lasix in the morning and 40 mg at night. Her primary care doctor is Dr. Acosta. She does not think that she has been exposed to anyone with Covid. She has had a bad cough for the past couple of days. She does not think she is had a fever. She has had some loose stools. She had chest pain off and on yesterday. She has had multiple MIs and has 6 stents. Several weeks ago she fell and hit the right side of her face. She has resolving hematoma around the right eye. She denies any injuries to her chest during the fall. MD elicited complaint: shortness of breath, cough and chest pain Pertinent past history: COPD and congestive heart failure Onset (ago): day(s) (2 or 3) Timing: constant and progressively worsening Severity: severe (She states she can even walk across the room to the bathroom.) Exacerbating factors: lying flat, exertion, movement and coughing Relieving factors: nothing Known history of: COPD and congestive heart failure Associated symptoms: Reports no associated symptoms and chest pain; Deny abdominal pain, fever(s), nausea or vomiting Review of Systems General: Reports: 10 or more systems reviewed and unremarkable except in HPI and below Const: Denies: fever(s), chills, fatigue or malaise Eyes: Denies: change in vision ENMT: Denies: odynophagia Card: Reports: chest pain and swelling of feet/ankles Resp: Reports: dyspnea; Denies: productive cough or non-productive cough GI: Reports: diarrhea; Denies: abdominal pain, nausea or vomiting : Denies: flank pain or difficulty voiding Musc: Denies: neck pain or back pain Skin/Breast: Denies: rash Neuro: Denies: headache(s), numbness in extremities or weakness in extremities David/Lymph: Denies: easy bruising or easy bleeding PFSH ED PFSH: Medical History Amiodarone pulmonary toxicity CAD (coronary artery disease) Last echocardiogram 08/06 with EF of 50% Chronic pain She reports taking pain medicines and muscle relaxers for a recent back injury; she has chronic left leg pain. Chronic respiratory failure CKD (chronic kidney disease) Depression Diabetes mellitus Fibromyalgia Gout HTN (hypertension) Hypercholesteremia Hyperlipidemia Hypothyroidism Major depressive disorder, recurrent severe without psychotic features Surgical History H/O cardiac radiofrequency ablation H/O section H/O eye surgery H/O left knee surgery History of back surgery History of carpal tunnel release History of coronary artery stent placement History of hysterectomy partial Hx of cholecystectomy Family History Mother Cancer breast Stroke Brother Heart disease Asthma Cancer prostate Sister Heart disease Social History Smoking and tobacco status: never smoked Alcohol intake: never Housing: Other Details: Currently with her family Physical Exam Const: COMMON NORMALS: patient oriented x3, no limitations and alert GENERAL APPEARANCE: cooperative NUTRITIONAL APPEARANCE: obese morbidly obese HENMT: HEAD & SCALP: normal to inspection FACE & SINUS: normal facial exam Eye: GENERAL EYE: appearance normal, both eyes and all related structures Neck/C-Spine: COMMON NORMALS: supple, no meningeal signs and no JVD Chest: COMMONS NORMALS: normal inspection of the chest Resp: EFFORT & INSPECTION: Yes tachypneic and Yes labored AUSCULTATION: diminished lung sounds (Marked) Cardio: COMMON NORMALS: no JVD, regular rate, regular rhythm and No murmurs present (Cardio) RATE: regular rate RHYTHM: regular rhythm GI: COMMON NORMALS: Normal to inspection, nondistended, normoactive bowel sounds present, Soft to palpation and non-tender INSPECTION: Yes normal to inspection AUSCULTATION: Yes normoactive bowel sounds PALPATION: Yes Soft to palpation Back/Pelvis: COMMON NORMALS: thoracic and lumbar spine normal to inspection Extremity: COMMON NORMALS: normal to inspection Neuro: COMMON NORMALS: patient oriented x3, moves all extremities, no focal motor deficits and no sensory deficits noted SENSORIUM/ORIENTATION: Yes alert MENINGEAL SIGNS: Yes no meningeal signs Psych: COMMON NORMALS: mental status grossly normal, cooperative and normal affect Skin: COMMON NORMALS: no rashes or lesions noted and turgor normal GENERAL SKIN EXAM: no rashes or lesions noted and turgor normal Course ED course: This patient has shortness of breath and weakness. She does not feel like she can get around at home. She does not have any help at home currently. She does have some increased fluid retention and CHF. She will be admitted for diuresis and further evaluation. Vital Signs: Vital signs: Vital Signs Temperature 98.9 F 04/06/20 19:30 Pulse Rate 71 04/06/20 20:02 Respiratory Rate 18 04/06/20 20:02 Blood Pressure 118/63 04/06/20 19:30 Pulse Oximetry 93 04/06/20 20:02 MDM - SOB/Dyspnea Lab Data: Labs: Lab Results 04/05/20 04/05/20 04/05/20 Range/Units 19:40 19:40 19:40 WBC 12.8 H (4.0-10.0) 10^3/ uL RBC 4.75 (4.1-5.3) 10^6/u L Hgb 13.4 (11.5-15.3) g/dL Hct 42.8 (37.0-47.0) % MCV 90.1 (81-99) fL MCH 28.2 (28.0-34.0) pg MCHC 31.3 (30.0-36.0) g/dL RDW 15.1 (12.1-15.1) % Plt Count 268 (130-400) 10^3/c mm MPV 10.8 H (7.4-10.4) fL Neut % (Auto) 78.7 % Lymph % (Auto) 12.6 % [place] % (Auto) 6.3 % Eos % (Auto) 1.3 % Baso % (Auto) 0.6 % Neut # (Auto) 10.07 H (1.8-7.7) 10^3/u L Lymph # (Auto) 1.6 (0.8-4.8) 10^3/u L [place] # (Auto) 0.8 (0.2-0.9) 10^3/u L Eos # (Auto) 0.2 (0.0-0.8) 10^3/u L Baso # (Auto) 0.1 (0.0-0.1) 10^3/u L Nucleated RBC % (a uto) 0 % Nucleated RBCs # 0.0 /100WBC PT 14.90 (12.1-14.9) SECO NDS INR 1.14 (0.8-1.2) Fibrinogen 1214 H (174-498) mg/dL D-Dimer 0.56 (0-0.59) ug/mIFE U Sodium 138 (136-145) mmol/L Potassium 3.2 L (3.5-5.1) mmol/L Chloride 95 L (98-107) mmol/L Carbon Dioxide 30 H (22-29) mmol/L Anion Gap 16.2 (5-19) BUN 39 H (8-23) mg/dL Creatinine 1.6 H (0.5-0.9) mg/dL GFR Calculation 32.3 L (90-130) mL/min Glucose 215 H (65-115) mg/dL Calculated Osmolal ity 302 H (285-295) mOsm/k g Calcium 9.8 (8.5-10.5) mg/dL Ferritin (15-150) ng/mL Total Bilirubin 0.4 (0.15-1.2) mg/dL AST 27 (0-32) U/L ALT 23 (0-33) U/L Alkaline Phosphata se 91 (35-105) IU/L Lactate Dehydrogen ase (135-214) U/L C-Reactive Protein (0.0-4.9) mg/L NT-Pro-B Natriuret Pep (0-125) pg/mL Total Protein 7.2 (6.6-8.7) g/dL Albumin 3.7 (3.5-5.2) g/dL Globulin 3.5 (1.3-4.6) g/dL Procalcitonin (0-0.5) ng/mL Influenza Type A A g (Negative) Influenza Type B A g (Negative) SARS-CoV-2 Ag (Rap id) (Negative) 04/05/20 04/05/20 04/05/20 Range/Units 19:40 20:10 20:10 WBC (4.0-10.0) 10^3/ uL RBC (4.1-5.3) 10^6/u L Hgb (11.5-15.3) g/dL Hct (37.0-47.0) % MCV (81-99) fL MCH (28.0-34.0) pg MCHC (30.0-36.0) g/dL RDW (12.1-15.1) % Plt Count (130-400) 10^3/c mm MPV (7.4-10.4) fL Neut % (Auto) % Lymph % (Auto) % [place] % (Auto) % Eos % (Auto) % Baso % (Auto) % Neut # (Auto) (1.8-7.7) 10^3/u L Lymph # (Auto) (0.8-4.8) 10^3/u L [place] # (Auto) (0.2-0.9) 10^3/u L Eos # (Auto) (0.0-0.8) 10^3/u L Baso # (Auto) (0.0-0.1) 10^3/u L Nucleated RBC % (a uto) % Nucleated RBCs # /100WBC PT (12.1-14.9) SECO NDS INR (0.8-1.2) Fibrinogen (174-498) mg/dL D-Dimer (0-0.59) ug/mIFE U Sodium (136-145) mmol/L Potassium (3.5-5.1) mmol/L Chloride (98-107) mmol/L Carbon Dioxide (22-29) mmol/L Anion Gap (5-19) BUN (8-23) mg/dL Creatinine (0.5-0.9) mg/dL GFR Calculation (90-130) mL/min Glucose (65-115) mg/dL Calculated Osmolal ity (285-295) mOsm/k g Calcium (8.5-10.5) mg/dL Ferritin 417 H (15-150) ng/mL Total Bilirubin (0.15-1.2) mg/dL AST (0-32) U/L ALT (0-33) U/L Alkaline Phosphata se (35-105) IU/L Lactate Dehydrogen ase 267 H (135-214) U/L C-Reactive Protein 334.3 H (0.0-4.9) mg/L NT-Pro-B Natriuret Pep 4678 H (0-125) pg/mL Total Protein (6.6-8.7) g/dL Albumin (3.5-5.2) g/dL Globulin (1.3-4.6) g/dL Procalcitonin 0.37 (0-0.5) ng/mL Influenza Type A A g Positive H (Negative) Influenza Type B A g Positive H (Negative) SARS-CoV-2 Ag (Rap id) Negative (Negative) Discharge Plan Discharge Patient Disposition: Admitted As Inpatient Admit Provider: Sylvie Quinteros Discharge Date/Time: 04/06/20 00:07 Coding Level of Care Code ED Auto Body Detailer for Deborag Fwd Exam Comprehensive
[2020-04-05 21:07] LABS: INR 1.14 (0.8-1.2)
[2020-04-05 21:11] LABS: D Dimer 0.56 ug/mIFEU (0-0.59)
[2020-04-05 21:12] LABS: NT Pro B Type Natriuretic Pept 4678 pg/mL (0-125); Procalcitonin 0.37 ng/mL (0-0.5)
[2020-04-05 21:14] LABS: Fibrinogen 1214 mg/dL (174-498)
[2020-04-05 21:23] LABS: C Reactive Protein 334.3 mg/L (0.0-4.9); Ferritin 417 ng/mL (15-150); Lactate Dehydrogenase 267 U/L (135-214)
[2020-04-05 21:31] LABS: SARS Covid-2 Antigen Negative (Negative)
[2020-04-05 21:32] LABS: Influenza A by IFA Positive (Negative); Influenza B by IFA Positive (Negative)
[2020-04-05] MEDS: FUROsemide 10 mg/mL SDV 10mL 80 MG IVP (23:42)
[2020-04-05] MEDS: cefTRIAXone 1,000 MG in sodium chloride 0.9% (plus) 50 ML 100 MG IV (23:44)
[2020-04-05] MEDS: azithromycin 500 MG in sodium chloride 0.9% 250 ML 250 MG IV (23:47)
[2020-04-05 23:54] VITALS: BP 127/62; PULSE 69; RESP 20; O2SAT 95
[2020-04-06] VITALS (10 sets, daily range): BP systolic 106–136; BP diastolic 61–83; PULSE 66–77; RESP 18–20; TEMP 36.9–37.2; O2SAT 91–95
[2020-04-06] MEDS: oseltamivir phosphate 75 mg Capsule PO ×3 (01:53→16:55)
[2020-04-06] MEDS: lidocaine 1% 5 ML in potassium chloride premix 100 ML 25 ML IV (01:53)
--- NOTE | 2020-04-06 08:21 | P.HP_ITS ---
Providers/Chief Complaint Admitting Physician: Sylvie Quinteros MD Primary Care Provider: Farhat Acosta MD Chief Complaint: fever/cough/sob/ says filling with fluid History of Present Illness Shauna Sena is a 64 year old female with past medical history of coronary disease, atrial fibrillation, diastolic heart failure and diabetes who presents to the emergency department with dyspnea. The patient states that on Sunday of this weekend she began to have increasing shortness of breath and cough. This gradually worsened. The patient did not have any fevers. She has had an unproductive cough. She feels that she has more fluid in her lungs. The patient did have a flu shot a couple weeks ago at [facility]. In the ER her flu a and flu B were positive. Her rapid Covid test was negative. Patient denies any active chest pains, constipation, diarrhea, dysuria. She adm its to nausea. She also has irritation of her bilateral eyes and a bruise on her right eye from a prior fall. Medications/Allergies Home Medications Medication Instructions Recorded Confirmed Last Taken Type albuterol sulfate 90 mcg/actuation 2 puff INHALATION Q6H PRN 06/30/19 03/04/20 Unknown History aerosol inhaler allopurinol 300 mg tablet 300 mg PO DAILY tab 06/30/19 03/04/20 12/28/19 History apixaban 5 mg tablet 5 mg PO BID 06/30/19 03/04/20 12/28/19 History docusate sodium 100 mg tablet 100 mg PO BID 06/30/19 03/04/20 12/27/19 History furosemide 40 mg tablet 80 mg PO BID tab 06/30/19 03/04/20 12/28/19 History hydrocodone 5 mg-acetaminophen 325 1 - 2 tab PO Q8H PRN tab 06/30/19 03/04/20 U nknown History mg tablet nitroglycerin 0.4 mg sublingual 0.4 mg SUBLINGUAL Q5M PRN 06/30/19 03/04/20 Unknown History tablet pregabalin 150 mg capsule 150 mg PO BEDTIME cap 06/30/19 03/04/20 12/27/19 History simvastatin 80 mg tablet 80 mg PO DAILY 06/30/19 03/04/20 12/27/19 History clopidogrel 75 mg tablet 75 mg PO DAILY tab 09/19/19 03/04/20 12/28/19 History levothyroxine 50 mcg capsule 50 mcg PO DAILY cap 09/19/19 03/04/20 12/28/19 History Lantus U-100 Insulin 70 unit SUBCUT DAILY 12/28/19 03/04/20 12/28/19 History cyclobenzaprine 10 mg PO Q8H PRN 12/28/19 03/04/20 Unknown History diltiazem HCl 120 mg PO DAILY 12/28/19 03/04/20 12/28/19 History metolazone 5 mg PO BID 12/28/19 03/04/20 12/28/19 History metoprolol tartrate 75 mg PO BID #90 tab 12/29/19 03/04/20 12/28/19 Rx potassium chloride 40 meq PO BID #0 tab 12/29/19 03/04/20 12/28/19 Rx insulin human U-100 NPH-regulr 50 unit SUBCUT DAILY ml 01/09/20 03/04/20 Unknown History 70-30 mix 100 unit/mL subcutaneous susp buspirone 15 mg tablet 15 mg PO TID #90 tab 03/08/20 03/08/20 Unknown Rx sertraline 100 mg tablet 200 mg PO QAM #60 tab 03/08/20 03/08/20 Unknown Rx lorazepam 1 mg tablet 1 mg PO DAILY PRN #30 tab 03/11/20 03/11/20 Unknown Rx Allergies Allergy/AdvReac Type Severity Reaction Status Date / Time morphine Allergy Severe Quit Verified 02/13/20 12:57 breathing amiodarone Allergy ALGY-Anaphy Verified 03/04/20 14:57 laxis shellfish derived AdvReac Severe Hives & Verified 02/13/20 12:57 throat swells meperidine [From Demerol] AdvReac Intermediate Made N & V Verified 02/13/20 12:57 Penicillins AdvReac Intermediate RAsh Verified 02/13/20 12:57 PFSH Acute PFSH: Medical History Amiodarone pulmonary toxicity CAD (coronary artery disease) Last echocardiogram 08/06 with EF of 50% Chronic pain She reports taking pain medicines and muscle relaxers for a recent back injury; she has chronic left leg pain. Chronic respiratory failure CKD (chronic kidney disease) Depression Diabetes mellitus Fibromyalgia Gout HTN (hypertension) Hypercholesteremia Hyperlipidemia Hypothyroidism Major depressive disorder, recurrent severe without psychotic features Surgical History H/O cardiac radiofrequency ablation H/O section H/O eye surgery H/O left knee surgery History of back surgery History of carpal tunnel release History of coronary artery stent placement History of hysterectomy partial Hx of cholecystectomy Family History Mother Cancer breast Stroke Brother Heart disease Asthma Cancer prostate Sister Heart disease Social History Smoking and tobacco status: never smoked Alcohol intake: never Housing: Other Details: Currently with her family Vitals/I&O/Wt Last Vital Signs Temp 98.7 F 04/06/20 00:00 Pulse 66 04/06/20 00:00 Resp 19 H 04/06/20 00:00 BP 132/83 04/06/20 00:00 Pulse Ox 94 04/06/20 00:00 04/05/20 04/06/20 04/06/20 22:59 06:59 14:59 Output Total 650 / 650 800 / 800 Balance -650 / -650 -800 / -800 Weight last 48 hrs Weight 279 lb Physical Exam Narrative: EXAM NARRATIVE: General: Alert and oriented x3 Eyes: Erythematous conjunctiva bilaterally with mild discharge from the right eye and a stye noted on the right upper eye lid. Mouth: No lesions noted Neck: No significant cervical lymphadenopathy Cardiac: Regular rate and rhythm Lungs: Clear to auscultation bilaterally without crackles, wheezes or rhonchi Abdomen: Soft, nontender without hepatosplenomegaly noted Extremities: +2 pitting edema in the bilateral lower extremities. Data : 04/05/20 19:40 04/05/20 19:40 Micro: Microbiology 04/05/20 20:10 Blood Culture - Preliminary Blood SPECIMEN COLLECTED A&P Additional A&P Information 1. Hypoxia -likely underlying causes secondary to influenza and fluid overload. We will treat these and follow. Antibiotic coverage in case of secondary pneumonia. 2. Influenza A and B -patient will be started on Tamiflu for treatment of influenza. 3. Acute on chronic diastolic heart failure -we will give Lasix 80 mg twice daily to help with fluid overload. Replace potassium as needed. 4. Diabetes mellitus -insulin sliding scale 5. Coronary artery disease -stable at this time. Without active chest pains. 6. Prophylaxis -the patient is on Eliquis at home. Continue with this for prophylaxis. Attestations Medical Necessity Statement*: The patient is here with acute on chronic diastolic heart failure. We will proceed with inpatient admission for treatment. Her stay will cross 2 midnights. 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
[2020-04-06] MEDS: tobramycin 0.3% Op Soln 5 mL Btl 2 DROP EYEAFF ×4 (09:16→20:54)
[2020-04-06] MEDS: FUROsemide 10 mg/mL SDV 10mL 80 MG IVP ×2 (09:16→20:57)
[2020-04-06] MEDS: metoprolol tartrate 50 mg Tablet 75 MG PO ×2 (09:17→16:56)
[2020-04-06] MEDS: clopidogrel 75 mg Tablet PO (09:17)
[2020-04-06] MEDS: apixaban 5 mg Tablet PO ×2 (09:17→16:56)
[2020-04-06] MEDS: potassium chloride ER 10 mEq Tablet 40 MEQ PO ×2 (09:18→16:56)
[2020-04-06] MEDS: ondansetron 4 MG Tablet PO (09:39)
[2020-04-06] MEDS: dilTIAZem ER (24HR) 120 mg Capsule PO (10:35)
[2020-04-06] MEDS: levothyroxine 50 mcg Tablet PO (10:35)
--- NOTE | 2020-04-06 16:38 | PC.NURSE ---
BLOOD GLUCOSE BLOOD SUGAR 207 @ 1638
[2020-04-06] MEDS: cefTRIAXone 2,000 MG in sodium chloride 0.9% (plus) 50 ML 100 MG IV (20:55)
[2020-04-06] MEDS: pregabalin 150 mg Capsule PO (20:56)
[2020-04-06] MEDS: atorvastatin 40 mg Tablet 80 MG PO (20:56)
[2020-04-06] MEDS: insulin glargine 100 units/1 mL 30 UNIT SUBCUT (20:57)
[2020-04-06] MEDS: HYDROcodone-acetaminophen 5-325 mg Tablet 1 TAB PO (23:48)
[2020-04-07] VITALS (10 sets, daily range): BP systolic 106–122; BP diastolic 63–75; PULSE 66–88; RESP 14–20; TEMP 36.1–37.2; O2SAT 88–95
[2020-04-07] MEDS: azithromycin 250 MG in sodium chloride 0.9% 250 ML IV (00:17)
[2020-04-07] MEDS: tobramycin 0.3% Op Soln 5 mL Btl 2 DROP EYEAFF ×6 (00:17→21:33)
[2020-04-07 05:58] LABS: Basophils # 0.1 10^3/uL (0.0-0.1); Basophils % 0.6 %; Eosinophils # 0.4 10^3/uL (0.0-0.8); Hematocrit 38.3 % (37.0-47.0); Hemoglobin 11.9 g/dL (11.5-15.3); Lymphocytes # 1.1 10^3/uL (0.8-4.8); Lymphocytes % 12.7 %; Mean Corpuscular HGB Conc 31.1 g/dL (30.0-36.0); Mean Corpuscular Hemoglobin 28.7 pg (28.0-34.0); Mean Corpuscular Volume 92.3 fL (81-99); Mean Platelet Volume 10.6 fL (7.4-10.4); Monocytes # 0.6 10^3/uL (0.2-0.9); Monocytes % 7.4 %; Neutrophils # 6.22 10^3/uL (1.8-7.7); Neutrophils % 73.8 %; Nucleated Red Blood Cells % 0 %; Platelet Count 241 10^3/cmm (130-400); Red Blood Count 4.15 10^6/uL (4.1-5.3); White Blood Count 8.4 10^3/uL (4.0-10.0)
[2020-04-07] MEDS: sertraline 100 mg Tablet 200 MG PO (06:01)
[2020-04-07 06:50] LABS: Alanine Aminotransferase 20 U/L (0-33); Albumin Level 3.1 g/dL (3.5-5.2); Alkaline Phosphatase 83 IU/L (35-105); Anion Gap 15.2 (5-19); Aspartate Amino Transferase 15 U/L (0-32); Blood Urea Nitrogen 43 mg/dL (8-23); Calcium 8.8 mg/dL (8.5-10.5); Carbon Dioxide 32 mmol/L (22-29); Chloride 96 mmol/L (98-107); Globulin 3.2 g/dL (1.3-4.6); Glomerular Filtration Rate 32.3 mL/min (90-130); Glucose 214 mg/dL (65-115); Magnesium 1.4 mg/dL (1.7-2.3); NT Pro B Type Natriuretic Pept 1999 pg/mL (0-125); Osmolality Calculated 307 mOsm/kg (285-295); Phosphorus 4.8 mg/dL (2.5-4.5); Potassium 3.2 mmol/L (3.5-5.1); Sodium 140 mmol/L (136-145); Total Bilirubin 0.3 mg/dL (0.15-1.2); Total Protein 6.3 g/dL (6.6-8.7)
--- NOTE | 2020-04-07 07:56 | PM.PN ---
Subjective Subjective: Interval history: The patient is coughing up some green phlegm and continues to feel some shortness of breath. She denies any chest pains at this time. She feels like she is starting to improve some. Vitals/I&O/Wt Last Vital Signs Temp 96.9 F L 04/07/20 07:42 Pulse 70 04/07/20 07:42 Resp 16 04/07/20 07:42 BP 122/73 04/07/20 07:42 Pulse Ox 90 04/07/20 07:42 04/06/20 04/07/20 04/07/20 22:59 06:59 14:59 Intake Total 250 / 650 250 / 900 Output Total 700 / 2400 1200 / 3600 Balance -450 / -1750 -950 / -2700 Weight last 48 hrs Weight 279 lb Physical Exam Narrative: EXAM NARRATIVE: General: Alert and oriented x3 Cardiac: Regular rate and rhythm Lungs: Clear to auscultation bilaterally without crackles, wheezes or rhonchi Abdomen: Soft, nontender without hepatosplenomegaly noted Extremities: +1 pitting edema in the bilateral lower extremities. Data : 04/07/20 05:50 04/07/20 05:50 Micro: Microbiology 04/05/20 20:10 Blood Culture - Preliminary Blood NEGATIVE TO DATE A&P Additional A&P Information 1. Hypoxia -likely underlying causes secondary to influenza and fluid overload. This is starting to improve with Lasix therapy and antibiotics. Continue with IV antibiotics and Tamiflu as well as Lasix. 2. Influenza A and B -patient will be continued on Tamiflu for treatment of influenza. 3. Acute on chronic diastolic heart failure -we will continue Lasix 80 mg twice daily to help with fluid overload. Replace potassium as needed. 4. Diabetes mellitus -insulin sliding scale 5. Coronary artery disease -stable at this time. Without active chest pains. 6. Hypomagnesemia -replace via IV. 7. Hypokalemia -replace by mouth. 8. Prophylaxis -the patient is on Eliquis at home. Continue with this for prophylaxis. Attestations Medical Necessity Statement*: The patient continues need inpatient therapy for the above issues. She is starting to show signs of improvement and hopefully can be discharged over the next 1 to 2 days. 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
[2020-04-07] MEDS: potassium chloride ER 10 mEq Tablet 40 MEQ PO (08:02)
[2020-04-07] MEDS: clopidogrel 75 mg Tablet PO (08:02)
[2020-04-07] MEDS: levothyroxine 50 mcg Tablet PO (08:03)
[2020-04-07] MEDS: metoprolol tartrate 50 mg Tablet 75 MG PO ×2 (08:03→17:07)
[2020-04-07] MEDS: oseltamivir phosphate 75 mg Capsule PO ×2 (08:03→17:08)
[2020-04-07] MEDS: dilTIAZem ER (24HR) 120 mg Capsule PO (08:03)
[2020-04-07] MEDS: FUROsemide 10 mg/mL SDV 10mL 80 MG IVP ×2 (08:03→22:05)
[2020-04-07] MEDS: apixaban 5 mg Tablet PO ×2 (08:03→17:07)
[2020-04-07] MEDS: allopurinol 300 mg Tablet PO (08:03)
[2020-04-07] MEDS: magnesium sulfate premix 2 GM/50 ML PIGGYBACK IV (08:04)
[2020-04-07] MEDS: albuterol 8 gm MDI 2 PUFF INHALATION ×3 (08:19→21:36)
--- NOTE | 2020-04-07 08:52 | PC.RESP ---
PULMONARY REHAB INFORMATION SENT TO PATIENT.
[2020-04-07 11:30] LABS: Coronavirus Lab Test PTC Negative
[2020-04-07] MEDS: pregabalin 150 mg Capsule PO (21:23)
[2020-04-07] MEDS: atorvastatin 40 mg Tablet 80 MG PO (21:23)
[2020-04-07] MEDS: cefTRIAXone 2,000 MG in sodium chloride 0.9% (plus) 50 ML 100 MG IV (21:23)
[2020-04-07] MEDS: HYDROcodone-acetaminophen 5-325 mg Tablet 1 TAB PO (21:24)
[2020-04-07] MEDS: insulin glargine 100 units/1 mL 30 UNIT SUBCUT (21:24)
[2020-04-08] VITALS (9 sets, daily range): BP systolic 110–151; BP diastolic 62–83; PULSE 65–91; RESP 16–19; TEMP 36.5–37.1; O2SAT 90–94
[2020-04-08] MEDS: azithromycin 250 MG in sodium chloride 0.9% 250 ML IV (01:29)
[2020-04-08] MEDS: tobramycin 0.3% Op Soln 5 mL Btl 2 DROP EYEAFF ×5 (01:29→18:05)
[2020-04-08] MEDS: albuterol 8 gm MDI 2 PUFF INHALATION ×2 (02:30→09:33)
[2020-04-08] MEDS: sertraline 100 mg Tablet 200 MG PO (05:45)
[2020-04-08] MEDS: ondansetron 4 MG Tablet PO (07:45)
[2020-04-08] MEDS: oseltamivir phosphate 75 mg Capsule PO ×2 (07:45→18:03)
[2020-04-08] MEDS: clopidogrel 75 mg Tablet PO (07:46)
[2020-04-08] MEDS: levothyroxine 50 mcg Tablet PO (07:46)
[2020-04-08] MEDS: allopurinol 300 mg Tablet PO (07:46)
[2020-04-08] MEDS: metoprolol tartrate 50 mg Tablet 75 MG PO ×2 (07:47→18:03)
[2020-04-08] MEDS: apixaban 5 mg Tablet PO ×2 (07:47→18:03)
[2020-04-08] MEDS: dilTIAZem ER (24HR) 120 mg Capsule PO (07:47)
[2020-04-08] MEDS: potassium chloride ER 10 mEq Tablet 40 MEQ PO (07:47)
[2020-04-08] MEDS: FUROsemide 10 mg/mL SDV 10mL 80 MG IVP (07:48)
[2020-04-08 08:46] LABS: Basophils # 0.1 10^3/uL (0.0-0.1); Basophils % 0.6 %; Eosinophils # 0.5 10^3/uL (0.0-0.8); Eosinophils % 5.2 %; Hematocrit 40.4 % (37.0-47.0); Hemoglobin 12.2 g/dL (11.5-15.3); Lymphocytes # 1.1 10^3/uL (0.8-4.8); Lymphocytes % 12.1 %; Mean Corpuscular HGB Conc 30.2 g/dL (30.0-36.0); Mean Corpuscular Hemoglobin 27.9 pg (28.0-34.0); Mean Corpuscular Volume 92.2 fL (81-99); Mean Platelet Volume 10.7 fL (7.4-10.4); Monocytes # 0.7 10^3/uL (0.2-0.9); Monocytes % 7.6 %; Neutrophils # 6.52 10^3/uL (1.8-7.7); Neutrophils % 73.9 %; Nucleated Red Blood Cells % 0 %; Platelet Count 240 10^3/cmm (130-400); Red Blood Count 4.38 10^6/uL (4.1-5.3); Red Cell Distribution Width 14.9 % (12.1-15.1); White Blood Count 8.8 10^3/uL (4.0-10.0)
--- NOTE | 2020-04-08 08:56 | DCPLANNER ---
Pg 2 of IM updated and reviewed with pt. No questions, copy provided.
[2020-04-08 09:02] LABS: Alanine Aminotransferase 20 U/L (0-33); Albumin Level 2.8 g/dL (3.5-5.2); Alkaline Phosphatase 92 IU/L (35-105); Blood Urea Nitrogen 43 mg/dL (8-23); Calcium 8.9 mg/dL (8.5-10.5); Carbon Dioxide 30 mmol/L (22-29); Chloride 94 mmol/L (98-107); Globulin 3.8 g/dL (1.3-4.6); Glomerular Filtration Rate 41.1 mL/min (90-130); Glucose 283 mg/dL (65-115); Magnesium 1.6 mg/dL (1.7-2.3); Osmolality Calculated 303 mOsm/kg (285-295); Sodium 136 mmol/L (136-145); Total Bilirubin 0.4 mg/dL (0.15-1.2); Total Protein 6.6 g/dL (6.6-8.7)
[2020-04-08 09:06] LABS: Anion Gap 15.3 (5-19); Aspartate Amino Transferase 15 U/L (0-32); Potassium 3.3 mmol/L (3.5-5.1)
[2020-04-08] MEDS: guaiFENesin 600 mg Tablet 1200 MG PO ×2 (09:19→18:04)
[2020-04-08] MEDS: lanolin oint 7 gm 1 APPLIC TOPICAL (09:19)
--- NOTE | 2020-04-08 13:30 | P.DS_ITS ---
Discharge Providers Date of Admission: 04/05/20 22:18 Date of Discharge: April 08, 2020 Attending Provider at Admission: Farhat Acosta MD Attending Provider at Discharge: Farhat Acosta MD Primary Care Provider: Farhat Acosta MD Diagnoses at Discharge Other Information Additional DC diagnoses/information: 1. Hypoxia 2. Influenza A and B 3. Acute on chronic diastolic heart failure 4. Diabetes mellitus 5. Coronary artery disease 6. Hypomagnesemia . 7. Hypokalemia Reason for Visit Reason for Visit: fever/cough/sob/ says filling with fluid Hospital Course Hospital Course: Shauna Sena is a 64 year old female with past medical history of coronary disease, atrial fibrillation, diastolic heart failure and diabetes who presents to the emergency department with dyspnea. The patient stated that on Sunday of this weekend she began to have increasing shortness of breath and cough. This gradually worsened. The patient did not have any fevers. She has had an unproductive cough. She feels that she has more fluid in her lungs. The patient did have a flu shot a couple weeks ago at [facility]. In the ER her flu a and flu B were positive. Her rapid Covid test was negative. The patient was found to be fluid overloaded and was started on IV lasix and had good diuresis. Her dyspnea gradually improved. She was also started on Tamiflu and antibiotics for secondary infection. At the time of discharge, she is b reathing much better and is able to get around the room without significant difficulty. She will follow up with me in clinic in the next week to be sure that she is continuing to improve. Physical Exam Narrative: EXAM NARRATIVE: General: Alert and oriented x3 Cardiac: Regular rate and rhythm Lungs: Clear to auscultation bilaterally without crackles, wheezes or rhonchi Abdomen: Soft, nontender without hepatosplenomegaly noted Extremities: +1 pitting edema in the bilateral lower extremities. Discharge Data Data Completed and Pending: Completed Studies During Hospitalization Category Date Time Status XR chest 1V juaquin ble [id number] Stat Exams 04/05/20 17:27 Completed Pending at discharge Category Date Time Status Blood Culture Sta t Lab 04/05/20 20:10 Results Labs from last 24 hours 04/08/20 04/08/20 08:29 08:29 WBC 8.8 RBC 4.38 Hgb 12.2 Hct 40.4 MCV 92.2 MCH 27.9 L MCHC 30.2 RDW 14.9 Plt Count 240 MPV 10.7 H Neut % (Auto) 73.9 Lymph % (Auto) 12.1 [place] % (Auto) 7.6 Eos % (Auto) 5.2 Baso % (Auto) 0.6 Neut # (Auto) 6.52 Lymph # (Auto) 1.1 [place] # (Auto) 0.7 Eos # (Auto) 0.5 Baso # (Auto) 0.1 Nucleated RBC % (a uto) 0 Nucleated RBCs # 0.0 Sodium 136 Potassium 3.3 L Chloride 94 L Carbon Dioxide 30 H Anion Gap 15.3 BUN 43 H Creatinine 1.3 H GFR Calculation 41.1 L Glucose 283 H Calculated Osmolal ity 303 H Calcium 8.9 Magnesium 1.6 L Total Bilirubin 0.4 AST 15 ALT 20 Alkaline Phosphata se 92 Total Protein 6.6 Albumin 2.8 L Globulin 3.8 Vitals: Last Vital Signs Temp 98.4 F 04/08/20 11:31 Pulse 68 04/08/20 11:31 Resp 18 04/08/20 11:31 BP 128/73 04/08/20 11:31 Pulse Ox 91 04/08/20 11:31 Discharge Plan Discharge Patient Disposition: Home Condition: Stable Prescriptions: New Mucinex 600 mg Tablet Extended Release 12hr 1,200 mg PO BID Qty: 30 RF: 0 Continued hydrocodone-acetaminophen 5-325 mg tablet 1 - 2 tab PO Q8H PRN (Reason: Pain) RF: 0 allopurinol 300 mg tablet 300 mg PO DAILY RF: 0 apixaban 5 mg tablet 5 mg PO BID RF: 0 furosemide [Lasix] 40 mg tablet 80 mg PO BID RF: 0 nitroglycerin 0.4 mg tablet, sublingual 0.4 mg SUBLINGUAL Q5M PRN (Reason: Chest Pain) RF: 0 pregabalin [Lyrica] 150 mg capsule 150 mg PO BEDTIME RF: 0 simvastatin 80 mg tablet 80 mg PO DAILY RF: 0 albuterol sulfate [ProAir HFA] 90 mcg/actuation HFA aerosol inhaler 2 puff INHALATION Q6H PRN (Reason: Shortness Of Breath) RF: 0 clopidogrel 75 mg tablet 75 mg PO DAILY RF: 0 levothyroxine 50 mcg capsule 50 mcg PO DAILY RF: 0 buspirone 15 mg tablet 15 mg PO TID Qty: 90 RF: 2 sertraline 100 mg tablet 200 mg PO QAM Qty: 60 RF: 2 lorazepam 1 mg tablet 1 mg PO DAILY PRN (Reason: anxiety/insomnia) Qty: 30 RF: 2 cyclobenzaprine 10 mg tablet 10 mg PO Q8H PRN (Reason: muscle spams) RF: 0 Lantus U-100 Insulin 100 unit/mL solution 70 unit SUBCUT DAILY RF: 0 metolazone 5 mg tablet 5 mg PO BID RF: 0 diltiazem HCl 120 mg capsule,extended release 24hr 120 mg PO DAILY RF: 0 metoprolol tartrate 50 mg tablet 75 mg PO BID Qty: 90 RF: 0 potassium chloride 20 mEq tablet extended release 40 meq PO BID Qty: 0 RF: 0 Humulin 70/30 U-100 Insulin 100 unit/mL (70-30) Suspension 60 unit SUBCUT DAILY RF: 0 Discharge Orders: Discharge Order (Routine); Ordered 04/08/20 Ordered By: Farhat Acosta Referrals: Farhat Acosta MD [Primary Care Provider] - 04/13/20 1:00 pm Discharge Diet: Usual diet Discharge Activity: Increase activity as tolerated Patient Instructions: Guaifenesin (By mouth), Oseltamivir (By mouth) Discharge Date/Time: 04/08/20 19:45 Discharge Attestations Time Spent in Discharge Care*: greater than 30 min Quality Metrics Clinical Quality Measures During this hospital stay, did patient experience: None 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
--- NOTE | 2020-04-08 19:50 | PC.NURSE ---
Patient left via wheelchair with her belongings. [employer] transported her to her daughter's vehicle. No IV when departed. 1944 time of departure.
== END 2020-04-08 19:45 | disposition home or self-care (01) | DRG 291 ==
LOC: ER 19:19 → MEDSURG 22:54
PROVIDERS: Emergency Medicine; Physician Assistant; Admitting Provider Internal Medicine; PCP Family Medicine; Visit Provider Internal Medicine
DX: I13.0 Hypertensive heart and chronic kidney disease with heart failure and stage 1 through stage 4 chronic kidney disease, or unspecified chronic kidney disease (principal); I50.33 Acute on chronic diastolic (congestive) heart failure; N18.9 Chronic kidney disease, unspecified; E11.22 Type 2 diabetes mellitus with diabetic chronic kidney disease; I25.10 Atherosclerotic heart disease of native coronary artery without angina pectoris; I48.91 Unspecified atrial fibrillation; G89.29 Other chronic pain; R09.02 Hypoxemia; M79.7 Fibromyalgia; M10.9 Gout, unspecified; E78.00 Pure hypercholesterolemia, unspecified; E78.5 Hyperlipidemia, unspecified; E03.9 Hypothyroidism, unspecified; F32.9 Major depressive disorder, single episode, unspecified; J10.1 Influenza due to other identified influenza virus with other respiratory manifestations; E83.42 Hypomagnesemia; E87.6 Hypokalemia; Z79.891 Long term (current) use of opiate analgesic; Z79.02 Long term (current) use of antithrombotics/antiplatelets; Z79.4 Long term (current) use of insulin
CPT/HCPCS: 12345; 36415; 71045; 80053; 82728; 83615; 83735; 83880; 84100; 84145; 85025; 85378; 85384; 85610; 86140; 86141; 87040; 87205; 87426; 87635; 87804; 94640; 94664; 96372; 96375; 99283; J0456; J0696; J1815 ×2; J1940; J3475; J3480; J3535; J7050; Q0162

== ENCOUNTER 2020-05-07 02:51 | Emergency (ER) | payer MEDICARE, MEDICAID, SELFPAY ==
[2020-05-07 02:22] VITALS: BP 103/85; PULSE 73; RESP 18; TEMP 36.9; O2SAT 97; BMI 42.4
--- NOTE | 2020-05-07 02:22 | XR_ITS ---
WS: [id number] Exam: XR knee LT 3V* [id number] Date/Time of Exam: 05/07/2020 2:28 AM Reason For Exam: Fall/injury Comparison 02/12/2019. No fracture or dislocation. Advanced tricompartmental DJD. Small effusion in the suprapatellar bursa. XR/XR knee LT 3V* [id number] IMPRESSION: 1. No fracture or dislocation. 2. 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 Small joint effusion .
[2020-05-07 02:29] VITALS: BP 108/70; PULSE 70; RESP 18; O2SAT 94
--- NOTE | 2020-05-07 02:48 | ED_ITS ---
HPI - Extremity Problem General: Chief complaint: Extremity Injury, Lower Stated complaint: L knee pain Source: patient and EMS Mode of arrival: EMS Limitations: no limitations History of Present Illness: HPI Narrative: Shauna is a very nice 64-year-old female who comes in complaining of left knee pain after a fall. She was walking back from her television to her chair when she tripped and felt like she was going to fall to the ground. The patient did fall striking her head on her chair and also her left knee on the tile floor. After this she was in too much pain from her left knee to get up on her own. EMS was called and she was brought here to the hospital. Patient did strike her head on her chair and was dazed but denies any loss of consciousness. She denies any neck pain, any other extremity pain, pain or injury to her torso including her chest, abdomen, upper or lower back. She states any kind of movement makes it worse and remaining still helps it feel better. Associated symptoms: Deny chest pain, fever(s) or rash Review of Systems Const: Denies: fever(s), chills, body aches, fatigue, malaise or diaphoresis Eyes: Denies: change in vision, blurry vision, photophobia, eye discomfort, eye discharge, eye redness or yellow eyes ENMT: Denies: throat pain, odynophagia, hoarseness, swelling of lips/tongue, ear or mastoid pain, ear discharge, change in hearing or nasal discharge Card: Denies: chest pain, palpitations, irregular heart rhythm, edema, lightheadedness, syncope, pre-syncope, dyspnea on exertion or orthopnea Resp: Denies: dyspnea, productive cough, non-productive cough, wheezing, hemoptysis or chest congestion GI: Denies: abdominal pain, nausea, vomiting, hematemesis, coffee ground emesis, heartburn, diarrhea, constipation, GI cramping, hematochezia or melena : Denies: flank pain, dysuria, urinary frequency, urinary urgency or hematuria Musc: Reports: extremity pain and joint pain; Denies: neck pain, back pain, extremity swelling, joint swelling, joint redness, joint warmth or joint stiffness Skin/Breast: Denies: rash, pruritus, erythema, skin pain or skin tenderness Neuro: Denies: headache(s), numbness in extremities, weakness in extremities, sensory changes, lack of coordination, difficulty walking, dizziness, vertigo, confusion, Slurred speech present or seizure-like activity David/Lymph: Denies: easy bruising, easy bleeding, petechiae, purpura or enlarged lymph nodes All/Imm: Denies: urticaria, throat swelling, tongue swelling, facial swelling or acute wheezing PFSH ED PFSH: Medical History (Updated 05/07/20 @ 04:22 by Anna Burroughs) Amiodarone pulmonary toxicity CAD (coronary artery disease) Last echocardiogram 08/06 with EF of 50% Chronic pain She reports taking pain medicines and muscle relaxers for a recent back injury; she has chronic left leg pain. Chronic respiratory failure CKD (chronic kidney disease) Depression Diabetes mellitus Fibromyalgia Gout HTN (hypertension) Hypercholesteremia Hyperlipidemia Hypothyroidism Major depressive disorder, recurrent severe without psychotic features Surgical History H/O cardiac radiofrequency ablation H/O section H/O eye surgery H/O left knee surgery History of back surgery History of carpal tunnel release History of coronary artery stent placement History of hysterectomy partial Hx of cholecystectomy Family History Mother Cancer breast Stroke Brother Heart disease Asthma Cancer prostate Sister Heart disease Social History Smoking and tobacco status: never smoked Alcohol intake: never Housing: Other Details: Currently with her family Physical Exam Const: COMMON NORMALS: no acute distress, patient oriented x3, no limitations and alert GENERAL APPEARANCE: cooperative HENMT: COMMON NORMALS: normocephalic, atraumatic, external ears normal, EAC's normal and Normal external nose present HEAD & SCALP: normal to inspection, normocephalic and atraumatic FACE & SINUS: normal facial exam and face symmetric NOSE: Normal external nose present and Normal nares present EXTERNAL EAR: Yes external ears normal EXTERNAL AUDITORY CANAL: EAC's normal MOUTH: Normal oral and palatal mucosa present, lip normal and tongue normal Eye: COMMON NORMALS: Equal, round and reactive pupils present and conjunctivae normal GENERAL EYE: appearance normal, both eyes and all related structures ALIGNMENT: Yes alignment normal PERIORBITAL: periorbital findings normal EYELID: eyelids normal CONJUNCTIVA: Yes conjunctivae normal SCLERA: sclerae normal PUPIL: Yes Equal, round and reactive pupils present Neck/C-Spine: COMMON NORMALS: full ROM, no lymphadenopathy, supple, no meningeal signs and no JVD GENERAL: Yes normal visual inspection and Yes trachea midline Chest: COMMONS NORMALS: normal inspection of the chest and normal palpation of entire chest wall Resp: COMMON NORMALS: normal respiratory effort, No retractions, No use of accessory muscles and clear to auscultation bilaterally EFFORT & INSPECTION: Yes able to speak in complete sentences and Yes symmetric chest movement AU SCULTATION: clear to auscultation bilaterally, no crackles, no rales, no rhonchi and no wheezes Cardio: COMMON NORMALS: no JVD, regular rate, regular rhythm, S1 normal heart sound present and S2 normal heart sound present RATE: regular rate RHYTHM: regular rhythm HEART SOUNDS: S1 normal heart sound present, S2 normal heart sound present, no click, no gallops, no murmurs and no rubs GI: COMMON NORMALS: Soft to palpation and No hepatosplenomegaly present PALPATION: Yes Soft to palpation, No Tenderness to palpation present (GI), No Guarding due to palpation present (GI), No Rigid due to palpation, Yes No hepatosplenomegaly present, No Hernia present, No Palpable mass present and No Pulsatile mass present : COMMON NORMALS: Yes no CVA tenderness BLADDER/KIDNEY EXAM: Yes no CVA tenderness EXTERNAL FEMALE EXAM: No Hernia present Back/Pelvis: COMMON NORMALS: no CVA tenderness, thoracic and lumbar spine normal to inspection, no thoracic nor lumbar tenderness and thoraco-lumbar ROM normal Extremity: NARRATIVE EXTREMITY EXAM: Left knee with pain on palpation and swelling. Range of motion limited by pain. No pain distal to the knee and no pain proximal to the knee. Patient was neurovascular intact distal. No gross deformity to suggest unstable or severe fracture. Remaining musculoskeletal exam for the patient was unremarkable. Neuro: COMMON NORMALS: patient oriented x3, CN's II-XII intact bilaterally, moves all extremities, no focal motor deficits and no sensory deficits noted SENSORIUM/ORIENTATION: Yes alert MENINGEAL SIGNS: Yes no meningeal signs SPEECH: speech normal Psych: COMMON NORMALS: mental status grossly normal, Normal thought process present, cooperative, normal affect, speech normal and activity/motor behavior normal SPEECH: Yes normal speech THOUGHT PROCESS: Normal thought process present Skin: COMMON NORMALS: no rashes or lesions noted, turgor normal, no jaundice, no petechiae and no mottling GENERAL SKIN EXAM: no rashes or lesions noted and turgor normal Course Vital Signs: Vital signs: Vital Signs Temperature 98.4 F 05/07/20 02:22 Pulse Rate 70 05/07/20 02:29 Respiratory Rate 18 05/07/20 02:29 Blood Pressure 108/70 05/07/20 02:29 Pulse Oximetry 94 05/07/20 02:29 Discharge Plan Discharge Patient Disposition: Home Clinical Impression: Contusion Condition: Stable Prescriptions: [place] 5-325 mg tablet 1 tab PO Q6H PRN (Reason: pain) 5 Days Qty: 20 RF: 0 No Action hydrocodone-acetaminophen 5-325 mg tablet 1 - 2 tab PO Q8H PRN (Reason: Pain) RF: 0 allopurinol 300 mg tablet 300 mg PO DAILY RF: 0 apixaban 5 mg tablet 5 mg PO BID RF: 0 furosemide [Lasix] 40 mg tablet 80 mg PO BID RF: 0 nitroglycerin 0.4 mg tablet, sublingual 0.4 mg SUBLINGUAL Q5M PRN (Reason: Chest Pain) RF: 0 pregabalin [Lyrica] 150 mg capsule 150 mg PO BEDTIME RF: 0 simvastatin 80 mg tablet 80 mg PO DAILY RF: 0 albuterol sulfate [ProAir HFA] 90 mcg/actuation HFA aerosol inhaler 2 puff INHALATION Q6H PRN (Reason: Shortness Of Breath) RF: 0 clopidogrel 75 mg tablet 75 mg PO DAILY RF: 0 levothyroxine 50 mcg capsule 50 mcg PO DAILY RF: 0 buspirone 15 mg tablet 15 mg PO TID Qty: 90 RF: 2 sertraline 100 mg tablet 200 mg PO QAM Qty: 60 RF: 2 lorazepam 1 mg tablet 1 mg PO DAILY PRN (Reason: anxiety/insomnia) Qty: 30 RF: 2 cyclobenzaprine 10 mg tablet 10 mg PO Q8H PRN (Reason: muscle spams) RF: 0 Lantus U-100 Insulin 100 unit/mL solution 70 unit SUBCUT DAILY RF: 0 metolazone 5 mg tablet 5 mg PO BID RF: 0 diltiazem HCl 120 mg capsule,extended release 24hr 120 mg PO DAILY RF: 0 metoprolol tartrate 50 mg tablet 75 mg PO BID Qty: 90 RF: 0 potassium chloride 20 mEq tablet extended release 40 meq PO BID Qty: 0 RF: 0 Humulin 70/30 U-100 Insulin 100 unit/mL (70-30) Suspension 60 unit SUBCUT DAILY RF: 0 Mucinex 600 mg Tablet Extended Release 12hr 1,200 mg PO BID Qty: 30 RF: 0 Discharge Orders: Discharge Order (Routine); Ordered 05/07/20 Ordered By: Anna Burroughs Referrals: Farhat Acosta MD [Primary Care Provider] - 1-3 days Josesito Gonzalez DO [Physician] - 1-3 days Discharge Diet: Usual diet Discharge Activity: Limit activity as instructed and Use walker/crutches as instructed Patient Instructions: Contusion, Knee Pain (ED) Activity Restrictions/Additional Instructions: Please return to the ER immediately for any of the signs or symptoms listed on your discharge instruction sheets, worsening/changing of your symptoms, you are not getting better as quickly as expected, or for ANY other cause or concerns. Use your crutches or walker at all times and do not bear weight if you have pain in your knee. Be certain to follow-up with Dr. Gonzalez for further evaluation and care. Use your knee immobilizer as well and do not bear any more weight on your leg than you can tolerate. Do this as well as the knee immobilizer until you see Dr. Gonzalez Coding Level of Care Code ED Hedge Fund Trader for [place] Fwd Exam Comprehensive
--- NOTE | 2020-05-07 02:49 | CTR_ITS ---
PROCEDURE INFORMATION: Exam: CT Left Lower Extremity Without Contrast, Knee Exam date and time: 05/07/2020 3:08 AM Age: 64 years old Clinical indication: Injury or trauma; Fall; Blunt trauma; Knee; Left; Prior surgery; Surgery date: 6+ months; Additional info: Trauma/pain/inconclusive plain films TECHNIQUE: Imaging protocol: CT of the Left lower extremity without contrast was performed. Exam focused on the knee. Radiation optimization: All CT scans at this facility use at least one of these dose optimization techniques: automated exposure control; mA and/or kV adjustment per patient size (includes targeted exams where dose is matched to clinical indication); or iterative reconstruction. COMPARISON: CR XR knee LT 3V* [id number] 05/07/2020 2:32 AM RADIATION DOSE METRICS: Total DLP (mGy-cm): 420.95 FINDINGS: Bones/joints: Alignment is normal. There is no acute fracture. There are large tricompartmental osteophytes. There is marked medial and lateral femorotibial compartment joint space narrowing. Small joint effusion. Soft tissues: Subcutaneous edema in the upper calf and popliteal fossa. Visible musculature is unremarkable. Vasculature: There is moderate diffuse atherosclerotic disease of the distal femoral, popliteal and proximal calf arteries. CT/CT knee LT wo con* [id number] IMPRESSION: 1. No acute fracture. 2. Severe tricompartmental degenerative disease. Radiation Dose CTDIVOL = (mGy): DLP = 420.95 (mGy-cm)
--- NOTE | 2020-05-07 02:57 | CTR_ITS ---
PROCEDURE INFORMATION: Exam: CT Head Without Contrast Exam date and time: 05/07/2020 3:09 AM Age: 64 years old Clinical indication: Injury or trauma; Fall; Blunt trauma (contusions or hematomas); Without loss of consciousness; Additional info: Fall/injury/anticoagulated TECHNIQUE: Imaging protocol: Computed tomography of the head without contrast. Radiation optimization: All CT scans at this facility use at least one of these dose optimization techniques: automated exposure control; mA and/or kV adjustment per patient size (includes targeted exams where dose is matched to clinical indication); or iterative reconstruction. COMPARISON: No relevant prior studies available. RADIATION DOSE METRICS: Total DLP (mGy-cm): 823.13 FINDINGS: Brain: The brain is unremarkable. There is no mass effect or significant white matter disease. There is no acute intracranial hemorrhage. Cerebral ventricles: No ventriculomegaly. Bones/joints: The calvarium is intact. Paranasal sinuses: The paranasal sinuses are clear. Mastoid air cells: Visualized mastoid air cells are well aerated. Soft tissues: The visible extracranial soft tissues are unremarkable. CT/CT head wo con* [id number] IMPRESSION: No acute findings. Radiation Dose CTDIVOL = (mGy): DLP = 823.13 (mGy-cm)
--- NOTE | 2020-05-07 03:00 | PC.NURSE ---
Ice pack applied to Lt knee
[2020-05-07] MEDS: HYDROcodone-acetaminophen 5-325 mg Tablet 1 TAB PO (04:17)
--- NOTE | 2020-05-07 04:22 | PC.NURSE ---
Medication given- IV Dc'd intact pressure dressing applied
[2020-05-07 05:00] VITALS: BP 146/84; PULSE 92; RESP 18; O2SAT 94
--- NOTE | 2020-05-10 15:48 | DCPLANNER ---
integrated marketing manager had message to schedule a follow up appointment for patient with Dr. Duggan with ortho. integrated marketing manager called the ortho clinic, spoke with Ana, gave clinic patients information. integrated marketing manager was told that patients information would be printed and reviewed. Clinic will call patient with appointment information.
--- NOTE | 2020-05-12 10:16 | DCPLANNER ---
Patient has a follow up appointment scheduled for May at 9:[address] Fajardo. Clinic will call patient with appointment information.
--- NOTE | 2020-06-18 13:03 | DCPLANNER ---
Patient had a follow up appointment scheduled for 06.03.20 with ortho - patient did attend appointment.
== END 2020-05-07 05:03 | disposition home or self-care (01) ==
PROVIDERS: Emergency Provider Emergency Medicine; PCP Family Medicine
DX: M25.562 Pain in left knee (principal); T14.8XXA Other injury of unspecified body region, initial encounter; Z79.02 Long term (current) use of antithrombotics/antiplatelets; Z79.4 Long term (current) use of insulin; I25.10 Atherosclerotic heart disease of native coronary artery without angina pectoris; E11.9 Type 2 diabetes mellitus without complications; I10 Essential (primary) hypertension; E78.5 Hyperlipidemia, unspecified; W19.XXXA Unspecified fall, initial encounter
CPT/HCPCS: 12345; 70450; 73562; 73700; 99283; E0114

== ENCOUNTER → 2020-06-03 10:24 | Outpatient (BNVA) | payer MEDICARE, MEDICAID, SELFPAY | PROVIDERS: PCP Family Medicine; Referring Provider Emergency Medicine; Visit Provider Specialist | DX: R52 Pain, unspecified (principal); M17.12 Unilateral primary osteoarthritis, left knee | CPT/HCPCS: 73560; 73565 ==

== ENCOUNTER → 2020-06-07 08:13 | Outpatient (BNVA) | payer MEDICARE, MEDICAID, SELFPAY | PROVIDERS: PCP Family Medicine; Visit Provider Nurse Practitioner Psychiatric/Mental Health | DX: F41.1 Generalized anxiety disorder (principal); G89.29 Other chronic pain; F33.2 Major depressive disorder, recurrent severe without psychotic features | CPT/HCPCS: 99212 ==

== ENCOUNTER → 2020-07-20 09:20 | Outpatient (BNVA) | payer MEDICARE, MEDICAID, SELFPAY | PROVIDERS: PCP Family Medicine; Visit Provider Nurse Practitioner Psychiatric/Mental Health | DX: F41.1 Generalized anxiety disorder (principal); F33.2 Major depressive disorder, recurrent severe without psychotic features; G89.29 Other chronic pain | CPT/HCPCS: 99213 ==

== ENCOUNTER → 2020-08-24 07:47 | Outpatient (BNVA) | payer MEDICARE, MEDICAID, SELFPAY | PROVIDERS: PCP Family Medicine; Visit Provider Nurse Practitioner Psychiatric/Mental Health | DX: F41.1 Generalized anxiety disorder (principal); F33.2 Major depressive disorder, recurrent severe without psychotic features; G89.29 Other chronic pain | CPT/HCPCS: 99213 ==

== ENCOUNTER → 2020-10-25 08:21 | Outpatient (BNVA) | payer MEDICARE, MEDICAID, SELFPAY | PROVIDERS: PCP Family Medicine; Visit Provider Nurse Practitioner Psychiatric/Mental Health | DX: F41.1 Generalized anxiety disorder (principal); F33.2 Major depressive disorder, recurrent severe without psychotic features; G89.29 Other chronic pain | CPT/HCPCS: 99213 ==

== ENCOUNTER → 2021-01-25 07:52 | Outpatient (BNVA) | payer MEDICARE, MEDICAID, SELFPAY | PROVIDERS: PCP Family Medicine; Visit Provider Nurse Practitioner Psychiatric/Mental Health | DX: F41.1 Generalized anxiety disorder (principal); F33.2 Major depressive disorder, recurrent severe without psychotic features; G89.29 Other chronic pain | CPT/HCPCS: 99214 ==

== ENCOUNTER 2021-02-09 18:59 | Observation (INO) | payer MEDICARE, MEDICAID, SELFPAY ==
[2021-02-09 19:53] VITALS: PULSE 90; RESP 16; TEMP 36.7; O2SAT 97; BMI 38.0
[2021-02-09 20:06] VITALS: BP 92/63
[2021-02-09 20:38] VITALS: O2SAT 97
[2021-02-09 20:38] LABS: Glucose Point of Care > 600 mg/dL (70-110)
[2021-02-09 20:38] LABS: Basophils # 0.1 10^3/uL (0.0-0.1); Basophils % 0.8 %; Eosinophils # 0.1 10^3/uL (0.0-0.8); Eosinophils % 0.8 %; Hematocrit 52.5 % (37.0-47.0); Hemoglobin 18.2 g/dL (11.5-15.3); Lymphocytes # 2.3 10^3/uL (0.8-4.8); Lymphocytes % 30.6 %; Mean Corpuscular HGB Conc 34.7 g/dL (30.0-36.0); Mean Corpuscular Hemoglobin 28.6 pg (28.0-34.0); Mean Corpuscular Volume 82.4 fl (81-99); Mean Platelet Volume 11.7 fL (7.4-10.4); Monocytes # 0.7 10^3/uL (0.2-0.9); Monocytes % 9.7 %; Neutrophils # 4.31 10^3/uL (1.8-7.7); Neutrophils % 57.7 %; Nucleated Red Blood Cells % 0 %; Platelet Count 267 10^3/cmm (130-400); Red Blood Count 6.37 10^6/uL (4.1-5.3); Red Cell Distribution Width 14.6 % (12.1-15.1); White Blood Count 7.5 10^3/uL (4.0-10.0)
[2021-02-09 20:38] LABS: Glucose Point of Care > 600 mg/dL (70-110)
[2021-02-09] MEDS: sodium chloride 0.9% 1,000 ML 999 ML IV ×2 (20:52→22:20)
[2021-02-09] MEDS: ondansetron 2 mg/ML SDV 2 mL 4 MG IVP (20:52)
[2021-02-09 20:54] VITALS: BP 111/72; PULSE 83; RESP 18; O2SAT 98
[2021-02-09 20:57] LABS: Alanine Aminotransferase 19 U/L (0-33); Albumin Level 3.5 g/dL (3.5-5.2); Alkaline Phosphatase 113 IU/L (35-105); Aspartate Amino Transferase 13 U/L (0-32); Blood Urea Nitrogen 38 mg/dL (8-23); Carbon Dioxide 27 mmol/L (22-29); Chloride 72 mmol/L (98-107); Globulin 3.1 g/dL (1.3-4.6); Glomerular Filtration Rate 28.2 mL/min (90-130); Sodium 121 mmol/L (136-145); Total Bilirubin 0.5 mg/dL (0.15-1.2); Total Protein 6.6 g/dL (6.6-8.7)
[2021-02-09 21:06] LABS: Ketone (Acetest) Serum Negative (Negative)
[2021-02-09 21:09] LABS: Osmolality Calculated 299 mOsm/kg (285-295)
[2021-02-09 21:11] LABS: Anion Gap 24.6 (5-19)
[2021-02-09 21:12] LABS: ABG PCO2 31.2 mmHg (35-45); Arterial Blood Gas Hematocrit 53.2 % (37-47); Base Excess ABG 11.1 mmol/L (-2.0-2.0); Blood Gas Allen Test Pos; Blood Gas Sample Type Arterial; HCO3 ABG 32.3 mmol/L (22-26); PO2 ABG 99.7 mmHg (80.0-100.0)
[2021-02-09 21:14] LABS: Blood Gas Sample Site Radial, left; Oxygen Device ROOM AIR
[2021-02-09 21:15] LABS: ABG PH Result 7.62 (7.35-7.45)
[2021-02-09 21:19] LABS: Glucose 775 mg/dL (65-115); Potassium 2.6 mmol/L (3.5-5.1)
--- NOTE | 2021-02-09 21:23 | PC.PHAR ---
PT'S PCP TOLD PT TO START TAKING VIIBRYD AND STOP TAKING ZOLOFT. PT STARTED THIS. SHE STOPPED TAKING THE VIIBRYD BECAUSE OF TERRIBLE DREAMS AND PUT HERSELF BACK ON ZOLOFT.
--- NOTE | 2021-02-09 21:24 | XRR_ITS ---
PROCEDURE INFORMATION: Exam: XR Chest Exam date and time: 02/09/2021 9:24 PM Age: 65 years old Clinical indication: Cough and shortness of breath TECHNIQUE: Imaging protocol: XR of the chest. Views: 1 view. COMPARISON: CR XR knees AP WB w LT lmt ORTH 06/03/2020 10:30 AM FINDINGS: Lungs: Right hilar to lower lobe atelectasis versus minimal infiltrate. Pleural spaces: Unremarkable. No pleural effusion. No pneumothorax. Heart/Mediastinum: Cardiomegaly. Bones/joints: Unremarkable. XR/XR chest 1V portable [id number] IMPRESSION: 1. Cardiomegaly. 2. Right hilar to lower lobe atelectasis versus minimal infiltrate.
--- NOTE | 2021-02-09 21:25 | W.ED.NAVMDI ---
HPI - Nausea/Vomiting/Diarrhea General: Chief complaint: Nausea/Vomiting/Diarrhea Stated complaint: HIGH BLOOD SUGAR/WEAKNESS Time Seen by Provider: 02/09/21 20:20 Source: patient Mode of arrival: ambulatory Limitations: no limitations History of Present Illness: HPI Narrative: 65-year-old female who has a history of diabetes. She states that she is lost her monitor and unsure what her blood sugars been running but over the last week she has been feeling very weak and dizzy and dehydrated and thirsty. She states she is also had diarrhea. Patient's blood sugar here is over 600. She denies any recent illnesses and denies any fever. She denies cough. Denies any vomiting. Associated symtoms: Reports malaise; Denies chest pain, dysuria or headache(s) Review of Systems Const: Reports: malaise Eyes: Denies: blurry vision or eye discomfort ENMT: Denies: throat pain or dental pain Card: Denies: chest pain Resp: Denies: dyspnea GI: Reports: diarrhea : Denies: dysuria Musc: Denies: neck pain or back pain Skin/Breast: Denies: rash Neuro: Denies: headache(s) Psych: Denies: depression David/Lymph: Denies: easy bruising All/Imm: Denies: urticaria PFSH ED PFSH: Medical History Amiodarone pulmonary toxicity CAD (coronary artery disease) Last echocardiogram 08/06 with EF of 50% Chronic pain She reports taking pain medicines and muscle relaxers for a recent back injury; she has chronic left leg pain. Chronic respiratory failure CKD (chronic kidney disease) Depression Diabetes mellitus Fibromyalgia Gout HTN (hypertension) Hypercholesteremia Hyperlipidemia Hypothyroidism Major depressive disorder, recurrent severe without psychotic features Surgical History H/O cardiac radiofrequency ablation H/O section H/O eye surgery H/O left knee surgery History of back surgery History of carpal tunnel release History of coronary artery stent placement History of hysterectomy partial History of incision and drainage Right breast abscess Hx of cholecystectomy Family History Mother Cancer breast Stroke Brother Heart disease Asthma Cancer prostate Sister Heart disease Social History Smoking and tobacco status: never smoked Alcohol intake: never Housing: Other Details: Currently with her family Physical Exam Const: COMMON NORMALS: no acute distress, patient oriented x3 and healthy appearing HENMT: COMMON NORMALS: normocephalic and atraumatic HEAD & SCALP: normocephalic and atraumatic Eye: COMMON NORMALS: Equal, round and reactive pupils present and EOMs intact bilaterally PUPIL: Yes Equal, round and reactive pupils present Neck/C-Spine: COMMON NORMALS: full ROM and supple Chest: COMMONS NORMALS: normal inspection of the chest and normal palpation of entire chest wall Resp: COMMON NORMALS: normal respiratory effort, No retractions, No use of accessory muscles and clear to auscultation bilaterally AUSCULTATION: clear to auscultation bilaterally Cardio: COMMON NORMALS: regular rate, regular rhythm and No murmurs present (Cardio) RATE: regular rate RHYTHM: regular rhythm GI: COMMON NORMALS: Normal to inspection, nondistended, normoactive bowel sounds present, Soft to palpation, non-tender and no masses PALPATION: Yes Soft to palpation Extremity: COMMON NORMALS: normal to inspection and full ROM Neuro: COMMON NORMALS: patient oriented x3, moves all extremities and no focal motor deficits Psych: COMMON NORMALS: mental status grossly normal, Normal thought process present and cooperative THOUGHT PROCESS: Normal thought process present Skin: COMMON NORMALS: no rashes or lesions noted and no wounds GENERAL SKIN EXAM: no rashes or lesions noted Course Vital Signs: Vital signs: Vital Signs Temperature 98.1 F 02/09/21 19:53 Pulse Rate 74 02/09/21 22:31 Respiratory Rate 19 H 02/09/21 22:31 Blood Pressure 111/72 02/09/21 22:31 Pulse Oximetry 95 02/09/21 22:31 MDM - Nausea/Vomiting/Diarrhea MDM Narrative: Medical decision making narrative: Patient presents here with diarrhea, hyperglycemia and hypokalemia. Patient's blood sugar here is improved. Patient was given potassium held we will recheck her potassium as well. Talking to the family she is not been taking care of her self and has been having some confusion and likely needs home health or long term placement. Spoke to hospitalist will admit for her electrolyte abnormalities. Lab Data: Labs: Lab Results 02/09/21 02/09/21 02/09/21 Range/Units 20:29 20:30 20:33 WBC 7.5 (4.0-10.0) 10^3/ uL RBC 6.37 H (4.1-5.3) 10^6/u L Hgb 18.2 H (11.5-15.3) g/dL Hct 52.5 H (37.0-47.0) % MCV 82.4 (81-99) fl MCH 28.6 (28.0-34.0) pg MCHC 34.7 (30.0-36.0) g/dL RDW 14.6 (12.1-15.1) % Plt Count 267 (130-400) 10^3/c mm MPV 11.7 H (7.4-10.4) fL Neut % (Auto) 57.7 % Lymph % (Auto) 30.6 % [place] % (Auto) 9.7 % Eos % (Auto) 0.8 % Baso % (Auto) 0.8 % Neut # (Auto) 4.31 (1.8-7.7) 10^3/u L Lymph # (Auto) 2.3 (0.8-4.8) 10^3/u L [place] # (Auto) 0.7 (0.2-0.9) 10^3/u L Eos # (Auto) 0.1 (0.0-0.8) 10^3/u L Baso # (Auto) 0.1 (0.0-0.1) 10^3/u L Nucleated RBC % (a uto) 0 % Nucleated RBCs # 0.0 /100WBC Specimen Type Sample Site ABG pH (7.35-7.45) ABG pCO2 (35-45) mmHg ABG pO2 (80.0-100.0) mmH g ABG HCO3 (22-26) mmol/L ABG Base Excess (-2.0-2.0) mmol/ L [place] Test Hematocrit (37-47) % O2 Delivery Device FiO2 % Agricultural Real Estate Agent ID Sodium (136-145) mmol/L Potassium (3.5-5.1) mmol/L Chloride (98-107) mmol/L Carbon Dioxide (22-29) mmol/L Anion Gap (5-19) BUN (8-23) mg/dL Creatinine (0.5-0.9) mg/dL GFR Calculation (90-130) mL/min Glucose (65-115) mg/dL POC Glucose > 600 H* > 600 H* (70-110) mg/dL Calculated Osmolal ity (285-295) mOsm/k g Calcium (8.5-10.5) mg/dL Magnesium (1.7-2.3) mg/dL Total Bilirubin (0.15-1.2) mg/dL AST (0-32) U/L ALT (0-33) U/L Alkaline Phosphata se (35-105) IU/L Total Protein (6.6-8.7) g/dL Albumin (3.5-5.2) g/dL Globulin (1.3-4.6) g/dL Serum Ketones (Negative) 02/09/21 02/09/21 02/09/21 Range/Units 20:33 20:33 20:33 WBC (4.0-10.0) 10^3/ uL RBC (4.1-5.3) 10^6/u L Hgb (11.5-15.3) g/dL Hct (37.0-47.0) % MCV (81-99) fl MCH (28.0-34.0) pg MCHC (30.0-36.0) g/dL RDW (12.1-15.1) % Plt Count (130-400) 10^3/c mm MPV (7.4-10.4) fL Neut % (Auto) % Lymph % (Auto) % [place] % (Auto) % Eos % (Auto) % Baso % (Auto) % Neut # (Auto) (1.8-7.7) 10^3/u L Lymph # (Auto) (0.8-4.8) 10^3/u L [place] # (Auto) (0.2-0.9) 10^3/u L Eos # (Auto) (0.0-0.8) 10^3/u L Baso # (Auto) (0.0-0.1) 10^3/u L Nucleated RBC % (a uto) % Nucleated RBCs # /100WBC Specimen Type Sample Site ABG pH (7.35-7.45) ABG pCO2 (35-45) mmHg ABG pO2 (80.0-100.0) mmH g ABG HCO3 (22-26) mmol/L ABG Base Excess (-2.0-2.0) mmol/ L [place] Test Hematocrit (37-47) % O2 Delivery Device FiO2 % Agricultural Real Estate Agent ID Sodium 121 L (136-145) mmol/L Potassium 2.6 L* (3.5-5.1) mmol/L Chloride 72 L (98-107) mmol/L Carbon Dioxide 27 (22-29) mmol/L Anion Gap 24.6 H (5-19) BUN 38 H (8-23) mg/dL Creatinine 1.8 H (0.5-0.9) mg/dL GFR Calculation 28.2 L (90-130) mL/min Glucose 775 H* (65-115) mg/dL POC Glucose (70-110) mg/dL Calculated Osmolal ity 299 H (285-295) mOsm/k g Calcium 9.0 (8.5-10.5) mg/dL Magnesium 1.8 (1.7-2.3) mg/dL Total Bilirubin 0.5 (0.15-1.2) mg/dL AST 13 (0-32) U/L ALT 19 (0-33) U/L Alkaline Phosphata se 113 H (35-105) IU/L Total Protein 6.6 (6.6-8.7) g/dL Albumin 3.5 (3.5-5.2) g/dL Globulin 3.1 (1.3-4.6) g/dL Serum Ketones Negative (Negative) 02/09/21 02/09/21 02/10/21 Range/Units 21:02 22:56 00:10 WBC (4.0-10.0) 10^3/ uL RBC (4.1-5.3) 10^6/u L Hgb (11.5-15.3) g/dL Hct (37.0-47.0) % MCV (81-99) fl MCH (28.0-34.0) pg MCHC (30.0-36.0) g/dL RDW (12.1-15.1) % Plt Count (130-400) 10^3/c mm MPV (7.4-10.4) fL Neut % (Auto) % Lymph % (Auto) % [place] % (Auto) % Eos % (Auto) % Baso % (Auto) % Neut # (Auto) (1.8-7.7) 10^3/u L Lymph # (Auto) (0.8-4.8) 10^3/u L [place] # (Auto) (0.2-0.9) 10^3/u L Eos # (Auto) (0.0-0.8) 10^3/u L Baso # (Auto) (0.0-0.1) 10^3/u L Nucleated RBC % (a uto) % Nucleated RBCs # /100WBC Specimen Type Arterial Sample Site Radial, left ABG pH 7.62 H* (7.35-7.45) ABG pCO2 31.2 L (35-45) mmHg ABG pO2 99.7 (80.0-100.0) mmH g ABG HCO3 32.3 H (22-26) mmol/L ABG Base Excess 11.1 H (-2.0-2.0) mmol/ L [place] Test Pos Hematocrit 53.2 H (37-47) % O2 Delivery Device Room air FiO2 21.0 % Agricultural Real Estate Agent ID [email or web address] Sodium (136-145) mmol/L Potassium (3.5-5.1) mmol/L Chloride (98-107) mmol/L Carbon Dioxide (22-29) mmol/L Anion Gap (5-19) BUN (8-23) mg/dL Creatinine (0.5-0.9) mg/dL GFR Calculation (90-130) mL/min Glucose (65-115) mg/dL POC Glucose > 600 H* 466 H (70-110) mg/dL Calculated Osmolal ity (285-295) mOsm/k g Calcium (8.5-10.5) mg/dL Magnesium (1.7-2.3) mg/dL Total Bilirubin (0.15-1.2) mg/dL AST (0-32) U/L ALT (0-33) U/L Alkaline Phosphata se (35-105) IU/L Total Protein (6.6-8.7) g/dL Albumin (3.5-5.2) g/dL Globulin (1.3-4.6) g/dL Serum Ketones (Negative) Discharge Plan Discharge Patient Disposition: Admitted As Inpatient Clinical Impression: Diarrhea, Hypokalemia, Hyperglycemia Condition: Stable Coding Level of Care Code ED Physical Therapist Clinic Director for Chg Fwd Exam Comprehensive
[2021-02-09 21:51] LABS: Magnesium 1.8 mg/dL (1.7-2.3)
[2021-02-09] MEDS: lidocaine 1% 5 ML in potassium chloride premix 100 ML 25 ML IV (22:21)
[2021-02-09] MEDS: potassium chloride ER 20 mEq Tablet 40 MEQ PO (22:22)
[2021-02-09] MEDS: insulin regular-human 100 units/1 mL 10 UNIT IVP (22:26)
[2021-02-09 22:31] VITALS: BP 111/72; PULSE 74; RESP 19; O2SAT 95
[2021-02-09 23:04] LABS: Glucose Point of Care > 600 mg/dL (70-110)
[2021-02-10] VITALS (10 sets, daily range): BP systolic 93–128; BP diastolic 56–78; PULSE 73–89; RESP 16–20; TEMP 36.6–36.8; O2SAT 92–99; BMI 37.9
[2021-02-10 00:15] LABS: Glucose Point of Care 466 mg/dL (70-110)
[2021-02-10] MEDS: sodium chloride 0.9% 1,000 ML 999 ML IV (01:26)
[2021-02-10] MEDS: insulin regular-human 100 units/1 mL 8 UNIT IVP (01:29)
[2021-02-10 02:05] LABS: Anion Gap 14.7 (5-19); Blood Urea Nitrogen 34 mg/dL (8-23); Calcium 8.8 mg/dL (8.5-10.5); Carbon Dioxide 33 mmol/L (22-29); Chloride 83 mmol/L (98-107); Glomerular Filtration Rate 34.7 mL/min (90-130); Glucose 417 mg/dL (65-115); Osmolality Calculated 291 mOsm/kg (285-295); Sodium 128 mmol/L (136-145)
[2021-02-10 02:12] LABS: Potassium 2.7 mmol/L (3.5-5.1)
[2021-02-10 02:51] LABS: Glucose Point of Care 384 mg/dL (70-110)
--- NOTE | 2021-02-10 03:46 | P.HP_ITS ---
Providers/Chief Complaint Admitting Physician: Lela Arambula MD Primary Care Provider: Farhat Acosta MD Chief Complaint: HIGH BLOOD SUGAR/WEAKNESS History of Present Illness Shauna Sena is a 65 year old female with past medical history of coronary disease, atrial fibrillation, diastolic heart failure and diabetes brought to the emergency room today due to increasing fatigue, generalized weakness, failure to thrive over the past 3-4 weeks. Patient states that she has been experiencing increased generalized weakness, is only able to ambulate short distances with her walker, feels as if she is in a fog , has had poor appetite with inconsistent diet over the above timeframe. She has not been able to check her blood sugar consistently as she recently moved into an apartment and has lost her glucometer. She was brought into the ER after being noted to be confused by her daughter. She describes this episode as not remembering the correct date, driving to her daughter's house 1 day prior to plan, while there reportedly she had slurred confused speech. At this present time patient has a slow speech, however she is alert awake and oriented x3. Labs upon presentation are notable for hyperglycemia with blood sugar greater than 600. She has not had an HbA1c checked and has not followed with primary care provider in a few months. Also notable is hypokalemia with K at 2.6. Patient reports diarrhea over the past 3 to 4 weeks. Per review of records he has had diarrhea and resulting hypokalemia dating back to December 2019. Patient endorses that this has been a chronic ongoing problem however more acutely worsened over the past 3 to 4 weeks. Denies any abdominal pain nausea or vomiting. Unable to state if she has had any weight loss or weight gain. Has not noted any blood or mucus in stools. No past history of C. difficile. No fever or recent sick contacts. Bilateral lower extremity have multiple scratch maradiaga which she states are from her kitten. She has been stressed over the past month and is quite tearful at interview today. States this is related to decisions regarding moving into assisted living facility as her family feels she is no longer appropriately able to care for herself. Review of Systems General: Reports: 10 or more systems reviewed and unremarkable except in HPI and below Const: Denies: fever(s), chills or body aches Eyes: Denies: change in vision, blurry vision or photophobia ENMT: Reports: hoarseness; Denies: throat pain, enlarged tonsils, odynophagia or nasal congestion Card: Denies: chest pain, palpitations, irregular heart rhythm, edema, swelling of feet/ankles, lightheadedness, pre-syncope, dyspnea on exertion or orthopnea Resp: Denies: dyspnea, productive cough, non-productive cough, wheezing, strid or, pain on inspiration, change in phlegm color, hemoptysis or chest congestion GI: Denies: abdominal pain, nausea, vomiting, hematemesis, coffee ground emesis, dysphagia, heartburn, diarrhea, constipation, GI cramping, change in stool character, hematochezia or melena : Denies: flank pain, difficulty voiding, dysuria, urinary frequency, urinary urgency, urinary hesitancy or hematuria Musc: Denies: neck pain, back pain, extremity pain, joint swelling, joint warmth or deformity Neuro: Denies: headache(s), numbness in extremities, weakness in extremities, sensory changes, difficulty walking, frequent falls, dizziness, vertigo, behavioral changes, Slurred speech present or seizure-like activity Psych: Denies: anxiety, depression, suicidal ideation or homicidal ideation Endo: Denies: polyuria, polydipsia, tired all the time, cold intolerance or hot flashes David/Lymph: Denies: easy bruising or easy bleeding Medications/Allergies Home Medications Medication Instructions Recorded Confirmed Last Taken Type albuterol sulfate 90 mcg/actuation 2 puff INHALATION Q6H PRN 06/30/19 02/09/21 Unknown History aerosol inhaler allopurinol 300 mg tablet 300 mg PO DAILY tab 06/30/19 02/09/21 02/09/21 History apixaban 5 mg tablet 5 mg PO BID 06/30/19 02/09/21 02/09/21 History furosemide 40 mg tablet See Rx Instructions .ROUTE 06/30/19 02/09/21 02/09/21 History .COMPLEX tab hydrocodone 5 mg-acetaminophen 325 1 - 2 tab PO Q8H PRN tab 06/30/19 02/09/21 Unknown History mg tablet nitroglycerin 0.4 mg sublingual 0.4 mg SUBLINGUAL Q5M PRN 06/30/19 02/09/21 Unknown History tablet pregabalin 150 mg capsule 150 mg PO BEDTIME cap 06/30/19 02/09/2121 History simvastatin 80 mg tablet 40 mg PO DAILY 06/30/19 02/09/21 02/09/21 History levothyroxine 50 mcg capsule 50 mcg PO DAILY cap 09/19/19 02/09/21 02/09/21 History Lantus U-100 Insulin 70 unit SUBCUT DAILY 12/28/19 02/09/21 02/09/21 History metoprolol tartrate 75 mg PO BID #90 tab 12/29/19 02/09/21 02/09/21 Rx potassium chloride 40 meq PO BID #0 tab 12/29/19 02/09/21 02/09/21 Rx Humulin 70/30 U-100 Insulin 70 unit SUBCUT DAILY 04/06/20 02/09/21 02/09/21 History diltiazem HCl 120 mg 120 mg PO DAILY #90 cap 09/27/20 02/09/21 02/09/21 Rx capsule,extended release 24 hr buspirone 15 mg tablet 15 mg PO TID #90 tab 01/27/21 02/09/21 02/09/21 Rx lorazepam 1 mg tablet 1 mg PO DAILY PRN #45 tab 01/27/21 02/09/21 Unknown Rx sertraline 100 mg PO BID 02/09/21 02/09/21 02/09/21 History vilazodone 40 mg PO DAILY 02/09/21 02/09/21 Unknown History Allergies Allergy/AdvReac Type Severity Reaction Status Date / Time morphine Allergy Severe Quit Verified 11/30/20 12:52 breathing amiodarone Allergy ALGY-Anaphy Verified 11/30/20 12:52 laxis shellfish derived AdvReac Severe Hives & Verified 11/30/20 12:52 throat swells meperidine [From Demerol] AdvReac Intermediate Made N & V Verified 11/30/20 12:52 Penicillins AdvReac Intermediate RAsh Verified 11/30/20 12:52 PFSH Acute PFSH: Medical History Amiodarone pulmonary toxicity CAD (coronary artery disease) Last echocardiogram 08/06 with EF of 50% Chronic pain She reports taking pain medicines and muscle relaxers for a recent back injury; she has chronic left leg pain. Chronic respiratory failure CKD (chronic kidney disease) Depression Diabetes mellitus Fibromyalgia Gout HTN (hypertension) Hypercholesteremia Hyperlipidemia Hypothyroidism Major depressive disorder, recurrent severe without psychotic features Surgical History H/O cardiac radiofrequency ablation H/O section H/O eye surgery H/O left knee surgery History of back surgery History of carpal tunnel release History of coronary artery stent placement History of hysterectomy partial History of incision and drainage Right breast abscess Hx of cholecystectomy Family History Mother Cancer breast Stroke Brother Heart disease Asthma Cancer prostate Sister Heart disease Social History Smoking and tobacco status: never smoked Alcohol intake: never Housing: Other Details: Currently with her family Vitals/I&O/Wt Last Vital Signs Temp 97.9 F 02/10/21 03:10 Pulse 73 02/10/21 03:10 Resp 20 H 02/10/21 03:10 BP 128/78 02/10/21 03:10 Pulse Ox 97 02/10/21 03:10 02/09/21 02/09/21 02/10/21 14:59 22:59 06:59 Intake Total 1000 / 1000 1000 / 2000 Balance 1000 / 1000 1000 / 2000 Weight last 48 hrs Weight 113.081 kg Weight 113.398 kg Physical Exam Narrative: EXAM NARRATIVE: General: No acute distress, AO x3, tearful during interview, takes time to formulate sentences but answers questions appropriately, engages in conversation HEENT: PERRLA, pupils bilaterally equal and reactive, pallors not present Chest: Normal vesicular breath sounds, no added sounds, equal good air entry bilaterally CVS: S1-S2 regular, no murmurs, no tachycardia, no gallops, no rubs Abdomen: Soft, nontender, no organomegaly, bowel sounds present Neuro: No focal motor deficits grossly, no facial deformity Extremities: multiple scratch maradiaga over B/L LE from kitten reportedly Data : 02/09/21 20:33 02/10/21 05:15 A&P Assessment and plan (1) Hyperglycemia: Patient reports compliance with insulin use, however has not been able to check her fingersticks at home. Reports multiple changes in diet recently and stressors of moving into a new home. No localizing signs or symptoms of infection at this present time. UA remains pending. Blood sugar greater than 600 upon arrival, no current signs of DKA or HHS at this time. Started on insulin high-dose sliding scale Check HbA1c to ascertain more recent glycemic control Status: Acute (2) Hypokalemia: Hypokalemia at 2.7, currently being repleted with IV and oral supplementation. Likely as a result of significant diarrhea and dehydration. Patient was noted to be dehydrated upon initial arrival in the ER, she has re ceived approximately 2 L of normal saline at this point. Currently appears to be better hydrated. Hold off on further IV fluids given past history of CHF. Hold home dose of Lasix for now and closely monitor volume status. KITTY monitoring. Recheck potassium with a.m. labs. Status: Acute (3) Diarrhea: On and off recurrent diarrhea dating back at least 1 year, more acutely worsened over the past 3 to 4 weeks. Check enteric bacterial and parasitic panel, C. difficile PCR. Check lipase Status: Acute Qualifiers: Diarrhea type: unspecified type Qualified Code(s): R19.7 - Diarrhea, unspecified (4) Polypharmacy: Reported confusion by family members, however currently patient is alert oriented x3. She is able to state the events of the day. Review of home medications shows patient is on multiple SSRIs, buspirone, lorazepam and lyrica 150. Continue risperidone and sertraline for now. Vilazodone currently not on formulary on hold for now. Additionally holding Lyrica for now and monitoring for improvement in feeling of lethargy, somnolence and brain fog . Check TSH Status: Acute (5) Generalized weakness: check TSH, medication changes as above Replete volume loss, check Hba1c Check CPK to evalute rhabdomyolysis given high dose statin therapy Status: Acute Additional A&P Information Metabolic alkalosis on ABG: Related to contraction alkalosis from volume loss Atrial fibrillation continue home doses of Cardizem, metoprolol and anticoagulation with Eliquis. PT/OT eval given deconditioning DVT ppx: On Eliquis Full code Attestations Medical Necessity Statement*: Anticipate >2midnight stay for above defined care Coding Level of Care Code Acute Elevator Constructor Supervisor for Chg Fwd Diagnoses Hyperglycemia R73.9 Hypokalemia E87.6 Diarrhea R19.7 Diarrhea type: unspecified type Polypharmacy Z79.899 Generalized weakness R53.1
[2021-02-10 05:54] LABS: Alanine Aminotransferase 15 U/L (0-33); Albumin Level 3.2 g/dL (3.5-5.2); Alkaline Phosphatase 91 IU/L (35-105); Anion Gap 17.4 (5-19); Aspartate Amino Transferase 12 U/L (0-32); Blood Urea Nitrogen 34 mg/dL (8-23); Calcium 8.3 mg/dL (8.5-10.5); Carbon Dioxide 31 mmol/L (22-29); Chloride 86 mmol/L (98-107); Globulin 2.4 g/dL (1.3-4.6); Glomerular Filtration Rate 34.7 mL/min (90-130); Glucose 338 mg/dL (65-115); Magnesium 1.8 mg/dL (1.7-2.3); Osmolality Calculated 295 mOsm/kg (285-295); Sodium 132 mmol/L (136-145); Total Bilirubin 0.5 mg/dL (0.15-1.2); Total Protein 5.6 g/dL (6.6-8.7)
[2021-02-10 06:03] LABS: Lipase 87 U/L (13-60); Thyroid Stimulating Hormone 2.47 uIU/mL (0.27-4.20)
[2021-02-10 06:19] LABS: Potassium 2.4 mmol/L (3.5-5.1)
[2021-02-10 06:44] LABS: Glucose Point of Care 344 mg/dL (70-110)
[2021-02-10] MEDS: lidocaine 1% 5 ML in potassium chloride premix 100 ML 25 ML IV ×2 (07:31→11:17)
[2021-02-10 07:37] LABS: Creatine Phosphokinase 69 U/L (26-192)
--- NOTE | 2021-02-10 07:40 | CT_ITS ---
WS: [id number] CT ABDOMEN AND PELVIS NONCONTRAST HISTORY: evaluate for abdominal mass TECHNIQUE: Imaging performed through the abdomen and pelvis. Coronal and sagittal reformats are submi tted. All CT scans at [facility] use at least one of these dose optimization techniques: automated exposure control; mA and/or kV adjustment per patient size (includes targeted exams where d ose is matched to clinical indication); or iterative reconstruction. DLP: 1821.75 mGy.cm COMPARISON: 01/29/2018 Lower thorax: Lung bases are clear. Visualized heart is normal. No hiatal hernia. Liver: Mild hepatic steatosis and hepatomegaly. There are a few scattered hepatic granulomatous. Gallbladder: Prior cholecystectomy. No bile duct dilatation. Pancreas: Normal size and attenuation. Normal pancreatic duct. No pancreatitis or mass. Spleen: Normal. Adrenal glands: Normal. No mass. Right kidney: Mild perinephric stranding. Increased sinus fat. No obstruction or mass. Left kidney: Perinephric stranding with increased sinus fat. No obstruction or mass. Aorta: Mild atherosclerosis abdominal aorta with no aneurysm. No free fluid, intraperitoneal air or significant lymphadenopathy. GI tract: No GI tract obstruction. Appendix is not definitely identified. Abdominal wall: Fat-containing ventral abdominal wall hernia. Pelvis: Prior hysterectomy. No pelvic mass. Urinary bladder is well distended. No adenopathy. Osseous structures: Mild degenerative changes throughout the lumbar spine and scoliosis. Lytic area i nvolving the superior endplate of L4. This is new since the prior examination of 2018. CT/CT abdomen pelvis wo con [id number] IMPRESSION: 1. No abdominal mass identified. 2. Prior cholecystectomy and hysterectomy. 3. No adenopathy or ascites. 4. New lytic area in the superior endplate of L4 needs further evaluation. Thi s may be Schmorl's node or limbus deformity but metastatic lesion is not exclud ed. Recommend follow-up bone scan imaging or MRI lumbar spine with and without contrast.
[2021-02-10 07:58] LABS: Estmated Average Glucose 418; Hemoglobin A1C 16.2 % (4.0-6.0)
[2021-02-10] MEDS: apixaban 5 mg Tablet PO ×2 (08:46→18:36)
[2021-02-10] MEDS: sertraline 100 mg Tablet PO ×2 (08:47→18:36)
[2021-02-10] MEDS: allopurinol 300 mg Tablet PO ×2 (08:47→11:20)
[2021-02-10] MEDS: metoprolol tartrate 50 mg Tablet 75 MG PO ×2 (08:47→18:36)
[2021-02-10] MEDS: levothyroxine 50 mcg Tablet PO (08:47)
[2021-02-10] MEDS: dilTIAZem ER (24HR) 120 mg Capsule PO (08:48)
[2021-02-10] MEDS: BuSPIRONE 10 mg Tablet 15 MG PO (08:48)
[2021-02-10] MEDS: atorvastatin 40 mg Tablet 20 MG PO (08:48)
[2021-02-10 10:22] LABS: Add Urine Microscopic? NO; Charge for UA Resulting for Rev
[2021-02-10 10:29] LABS: Bilirubin Urine Neg (Negative); Blood Urine Neg (Negative); Glucose Urine UA 4+ (Normal); Ketones Urine Negative (Negative); Leukocyte Esterase Urine Negative (Negative); Nitrate Urine Negative (Negative); Protein Urine Neg (Negative); Urine Appearance Clear (CLEAR); Urine Color Yellow (Yellow); Urobilinogen Urine Norm (Negative); pH Urine 5 (5-7)
--- NOTE | 2021-02-10 10:56 | PC.NURSE ---
Contacted daughter Audrey and she received an update.
--- NOTE | 2021-02-10 10:58 | PC.CHAP ---
Pastoral Care Encounter/Spiritual Assessment Type of Contact [] Declined beach lifeguard visit [] Patient/Family/Request visit [] Outpatient visit [] Follow-up visit [] Physician referral [] Code/Alert [] Routine visit [] Staff referral [] Actively dying [] Patient sleeping [] Family support [] [] Out of room [] Palliative care [] [] Receiving care in room [] Pre-surgical visit [] Trauma [] Long length of stay [] ICU visit [x] Other: Isolation Relational/Emotional Strength [] Patient feels connected with others/family/visitors/staff [] Distress [] Loneliness/isolation [] Abandonment Spirituality of Patient [] Person of [place] [] Attends Advent of their [place] [] Believes in Prayer [] Reads Bible or Denominational materials [] There are Spiritual issues to be addressed Vertical Contour Band Saw Operator Interventions [] Prayer [] Active listening [] Non-anxious presence [] Spiritual/emotional support [] Crisis/trauma care [] Spiritual counseling [] Bereavement support [] Provided bereavement packet [] Provided Bible/devotional materials [] Provided toy/stuffed animal, coloring book to patient or family member [] Provided Communion [] Anointing/[place] [] Salvation [] Completed spiritual assessment [] Other: Impact on Illness or Injury [] Angry [] Fearful [] Anxious [] Often cries [] Exhaustion [] Unable to work [] Unable to attend methodist [] Unable to walk/stand [] Unable to read [] Unable to drive [] Unable to eat/drink [] Unable to sleep [] Unable to be with family [] Patient intubated [] Other: Summary Isolation Time spent with patient 5 mins
[2021-02-10 11:21] LABS: Iron 63 ug/dL (37-145); Percent Saturation 27.7 % (20-50); Total Iron Binding Capacity 227 mcg/dl; Unsaturated Iron Binding 164 ug/dL (112-347)
[2021-02-10] MEDS: potassium chloride ER 20 mEq Tablet 40 MEQ PO (11:23)
[2021-02-10] MEDS: sodium chlor 0.9% + KCl 40 mEq 40 MEQ/1,000 ML BAG 50 MEQ IV (12:10)
[2021-02-10 12:53] LABS: Glucose Point of Care 462 mg/dL (70-110)
[2021-02-10] MEDS: insulin glargine 100 units/1 mL 30 UNIT SUBCUT ×2 (13:40→21:34)
[2021-02-10 15:06] LABS: Coronavirus Test Green County Not Detected
--- NOTE | 2021-02-10 15:36 | PC.OT ---
OT NOTE: OT EVALUATION HELD TODAY DUE TO K: 2.4L. WILL ATTEMPT EVALUATION TOMORROW.
--- NOTE | 2021-02-10 16:22 | PM.PN ---
Subjective Subjective: Interval history: Your H&P and labs noted. On examination today patient lying comfortably in bed. AOx3. Able to have complete nutrition reviewed me. Denies any nausea, vomiting, headache. States she has been taking her insulins regularly. Has not been checking her blood sugars at home. Would want to follow-up with endocrine if in [place]. States follows up with Dr. Acosta as her primary care provider. Vitals/I&O/Wt Last Vital Signs Temp 98.1 F 02/10/21 12:00 Pulse 89 02/10/21 12:00 Resp 18 02/10/21 12:00 BP 113/72 02/10/21 12:00 Pulse Ox 92 02/10/21 12:00 02/10/21 02/10/21 02/10/21 06:59 14:59 22:59 Intake Total 2105 / 3105 644.167 / 644.167 Output Total 700 / 700 Balance 2105 / 3105 -55.833 / -55.833 Weight last 48 hrs Weight 113.081 kg Weight 113.398 kg Physical Exam Narrative: EXAM NARRATIVE: General: No acute distress, AO x3,, obese HEENT: PERRLA, pupils bilaterally equal and reactive, pallors not present Chest: Normal vesicular breath sounds, no added sounds, equal good air entry bilaterally CVS: S1-S2 regular, no murmurs, no tachycardia, no gallops, no rubs Abdomen: Soft, nontender, no organomegaly, bowel sounds present Neuro: No focal motor deficits grossly, no facial deformity Extremities: multiple scratch maradiaga over B/L LE from kitten reportedly Data : 02/09/21 20:33 02/10/21 05:15 A&P Assessment and plan (1) Hyperglycemia: Status: Acute (2) Hypokalemia: Status: Acute (3) Diarrhea: On and off recurrent diarrhea dating back at least 1 year, more acutely worsened over the past 3 to 4 weeks. Check enteric bacterial and parasitic panel, C. difficile PCR. Check lipase Status: Acute Qualifiers: Diarrhea type: unspecified type Qualified Code(s): R19.7 - Diarrhea, unspecified (4) Polypharmacy: Status: Acute (5) Generalized weakness: check TSH, medication changes as above Replete volume loss, check Hba1c Check CPK to evalute rhabdomyolysis given high dose statin therapy Status: Acute (6) Altered mental status: Status: Acute (7) Diarrhea: Status: Acute (8) Atrial fibrillation: Status: Acute Qualifiers: Atrial fibrillation type: unspecified Qualified Code(s): I48.91 - Unspecified atrial fibrillation (9) HTN (hypertension): Status: Acute (10) CAD (coronary artery disease): Status: Acute Additional A&P Information Altered mental status: Most likely secondary to severe hyperglycemia/HHS in setting of hypokalemia and polypharmacy. For hyperglycemia: Patient's HbA1c extremely elevated. 16.4. At home patient states she takes 70 units of Lantus and 70 units of Humulin 70/30. Continue with insulin sliding scale every 4 hours for now. Start on Lantus 50 units twice daily. Recheck CMP in evening. For hypokalemia: Replace with 40 mEq oral. Start on normal saline with 40 mEq at 50 cc an hour. Monitor for fluid overload. Hold off on diuretics for now. For polypharmacy: Patient takes multiple medications at home including allopurinol 300 mg daily, BuSpar 15 mg 3 times daily, sertraline 200 mg in the morning, lorazepam 1 mg as needed, hydrocodone 1 to 2 tablets every 8 hours. Change the doses to Ativan 100 mg daily, BuSpar 10 mg 3 times daily, sertraline 75 mg twice daily, hold off on lorazepam. Continue with hydrocodone 1 mg every 8 hour as needed. Patient has been made aware of these changes. Metabolic alkalosis on ABG: Related to contraction alkalosis from volume loss. Atrial fibrillation: Rate controlled. Continue home doses of Cardizem, metoprolol and anticoagulation with Eliquis. PT/OT eval given deconditioning DVT ppx: On Eliquis Full code Famotidine for PUD prophylaxis. Attestations Medical Necessity Statement*: Requires further hospitalization for management of severe hyperglycemia, hypokalemia requiring IV replacement, polypharmacy leading to altered mental status. Time Spent in Patient Care: Greater than 35 minutes (>than 50% of time spent in counselling and/or direct pt care on unit). Coding Level of Care Code Acute Segment Producer for Chg Fwd Diagnoses Hyperglycemia R73.9 Hypokalemia E87.6 Diarrhea R19.7 Diarrhea type: unspecified type Polypharmacy Z79.899 Generalized weakness R53.1 Altered mental status R41.82 Diarrhea R19.7 Atrial fibrillation I48.91 Atrial fibrillation type: unspecified HTN (hypertension) I10 CAD (coronary artery disease) I25.10
[2021-02-10 16:38] LABS: Glucose Point of Care 344 mg/dL (70-110)
[2021-02-10] MEDS: BuSPIRONE 10 mg Tablet PO ×2 (16:38→21:13)
[2021-02-10 17:35] LABS: Anion Gap 13.8 (5-19); Blood Urea Nitrogen 36 mg/dL (8-23); Calcium 8.2 mg/dL (8.5-10.5); Carbon Dioxide 30 mmol/L (22-29); Chloride 89 mmol/L (98-107); Glomerular Filtration Rate 32.2 mL/min (90-130); Glucose 412 mg/dL (65-115); Osmolality Calculated 294 mOsm/kg (285-295); Potassium 3.8 mmol/L (3.5-5.1); Sodium 129 mmol/L (136-145)
[2021-02-10 18:04] LABS: Glucose Point of Care 453 mg/dL (70-110)
[2021-02-10 19:55] LABS: Glucose Point of Care 460 mg/dL (70-110)
[2021-02-11] VITALS (9 sets, daily range): BP systolic 92–127; BP diastolic 58–75; PULSE 60–114; RESP 16–18; TEMP 36.7–36.9; O2SAT 91–97
[2021-02-11 00:07] LABS: Glucose Point of Care 355 mg/dL (70-110)
[2021-02-11 05:03] LABS: Glucose Point of Care 177 mg/dL (70-110)
[2021-02-11 06:03] LABS: Basophils % 0.5 %; Eosinophils # 0.2 10^3/uL (0.0-0.8); Eosinophils % 2.9 %; Hematocrit 44.7 % (37.0-47.0); Hemoglobin 15.1 g/dL (11.5-15.3); Lymphocytes # 1.9 10^3/uL (0.8-4.8); Lymphocytes % 30.8 %; Mean Corpuscular HGB Conc 33.8 g/dL (30.0-36.0); Mean Corpuscular Hemoglobin 28.9 pg (28.0-34.0); Mean Corpuscular Volume 85.5 fl (81-99); Mean Platelet Volume 11.5 fL (7.4-10.4); Monocytes # 0.6 10^3/uL (0.2-0.9); Monocytes % 8.8 %; Neutrophils # 3.51 10^3/uL (1.8-7.7); Neutrophils % 56.2 %; Nucleated Red Blood Cells % 0 %; Platelet Count 210 10^3/cmm (130-400); Red Blood Count 5.23 10^6/uL (4.1-5.3); Red Cell Distribution Width 14.4 % (12.1-15.1); White Blood Count 6.2 10^3/uL (4.0-10.0)
[2021-02-11 06:21] LABS: Alanine Aminotransferase 13 U/L (0-33); Alkaline Phosphatase 82 IU/L (35-105); Aspartate Amino Transferase 11 U/L (0-32); Blood Urea Nitrogen 36 mg/dL (8-23); Calcium 8.2 mg/dL (8.5-10.5); Carbon Dioxide 30 mmol/L (22-29); Chloride 96 mmol/L (98-107); Globulin 2.3 g/dL (1.3-4.6); Glucose 159 mg/dL (65-115); Osmolality Calculated 292 mOsm/kg (285-295); Sodium 135 mmol/L (136-145); Total Bilirubin 0.2 mg/dL (0.15-1.2); Total Protein 5.3 g/dL (6.6-8.7)
[2021-02-11 08:22] LABS: Glucose Point of Care 173 mg/dL (70-110)
[2021-02-11] MEDS: apixaban 5 mg Tablet PO ×2 (08:57→17:36)
[2021-02-11] MEDS: allopurinol 300 mg Tablet PO (08:58)
[2021-02-11] MEDS: BuSPIRONE 10 mg Tablet PO ×3 (08:58→21:30)
[2021-02-11] MEDS: sertraline 100 mg Tablet PO (08:58)
[2021-02-11] MEDS: atorvastatin 40 mg Tablet 20 MG PO (08:58)
[2021-02-11] MEDS: metoprolol tartrate 50 mg Tablet 75 MG PO ×2 (08:58→17:38)
[2021-02-11] MEDS: levothyroxine 50 mcg Tablet PO (08:59)
[2021-02-11] MEDS: dilTIAZem ER (24HR) 120 mg Capsule PO (08:59)
[2021-02-11] MEDS: insulin glargine 100 units/1 mL 30 UNIT SUBCUT (09:05)
[2021-02-11] MEDS: potassium chloride ER 20 mEq Tablet 40 MEQ PO (09:48)
[2021-02-11 11:36] LABS: Glucose Point of Care 223 mg/dL (70-110)
--- NOTE | 2021-02-11 13:09 | PM.PN ---
Subjective Subjective: Interval history: No acute events overnight. Denies any N/V, AAOx3. Sugars better controlled. Laying comfortably in bed. Has remained hemodynamically stable, afebrile. Vitals/I&O/Wt Last Vital Signs Temp 98.4 F 02/11/21 12:00 Pulse 68 02/11/21 12:00 Resp 18 02/11/21 12:00 BP 127/75 02/11/21 12:00 Pulse Ox 97 02/11/21 12:00 02/10/21 02/11/21 02/11/21 22:59 06:59 14:59 Intake Total 431.666 / 1075.833 0 / 9079.213 7968.667 / 1406.667 Output Total 601 / 1301 / 2000 Balance -169.334 / -225.167 -700 / -516.239 3767.667 / 1406.667 Weight last 48 hrs Weight 113.081 kg Weight 113.398 kg Physical Exam Narrative: EXAM NARRATIVE: General: No acute distress, AO x3,, obese HEENT: PERRLA, pupils bilaterally equal and reactive, pallors not present Chest: Normal vesicular breath sounds, no added sounds, equal good air entry bilaterally CVS: S1-S2 regular, no murmurs, no tachycardia, no gallops, no rubs Abdomen: Soft, nontender, no organomegaly, bowel sounds present Neuro: No focal motor deficits grossly, no facial deformity Extremities: multiple scratch maradiaga over B/L LE from kitten reportedly Data : 02/11/21 05:10 02/11/21 05:10 A&P Assessment and plan (1) Hyperglycemia: Status: Acute (2) Hypokalemia: Status: Acute (3) Diarrhea: On and off recurrent diarrhea dating back at least 1 year, more acutely worsened over the past 3 to 4 weeks. Check enteric bacterial and parasitic panel, C. difficile PCR. Still pending. Status: Acute Qualifiers: Diarrhea type: unspecified type Qualified Code(s): R19.7 - Diarrhea, unspecified (4) Polypharmacy: Status: Acute (5) Generalized weakness: Status: Acute (6) Altered mental status: Status: Acute (7) Atrial fibrillation: Status: Acute Qualifiers: Atrial fibrillation type: unspecified Qualified Code(s): I48.91 - Unspecified atrial fibrillation (8) HTN (hypertension): Status: Acute (9) CAD (coronary artery disease): Status: Acute Additional A&P Information Altered mental status: Resolved. Most likely secondary to severe hyperglycemia/HHS in setting of hypokalemia and polypharmacy. For hyperglycemia: Patient's HbA1c extremely elevated. 16.4. At home patient states she takes 70 units of Lantus and 70 units of Humulin 70/30. BS better. insulin sliding scale high dose protocol ACHS. Lantus 40 units twice daily. Recheck CMP in AM For hypokalemia: Replace with 40 mEq oral. C/w NS with 40 mEq at 50 cc an hour. Monitor for fluid overload. Hold off on diuretics for now. For polypharmacy: Patient takes multiple medications at home including allopurinol 300 mg daily, BuSpar 15 mg 3 times daily, sertraline 200 mg in the morning, lorazepam 1 mg as needed, hydrocodone 1 to 2 tablets every 8 hours, Lyrica 150 QHS. Change the doses to BuSpar 10 mg 3 times daily, sertraline 75 mg twice daily, hold off on lorazepam, Lyrica 50 mg BID. Continue with hydrocodone 1 mg every 8 hour as needed. Patient has been made aware of these changes. Metabolic alkalosis on ABG: Related to contraction alkalosis from volume loss. Resolved. Atrial fibrillation: Rate controlled. Continue home doses of Cardizem, metoprolol and anticoagulation with Eliquis. PT/OT eval given deconditioning DVT ppx: On Eliquis Full code Famotidine for PUD prophylaxis. Attestations Medical Necessity Statement*: Requires further hospitalisation for resolving hyperglycemia, electrolyte abnormality, AMS Time Spent in Patient Care: Greater than 35 minutes (>than 50% of time spent in counselling and/or direct pt care on unit). Coding Level of Care Code Acute Performing Artist for Chg Fwd Diagnoses Hyperglycemia R73.9 Hypokalemia E87.6 Diarrhea R19.7 Diarrhea type: unspecified type Polypharmacy Z79.899 Generalized weakness R53.1 Altered mental status R41.82 Atrial fibrillation I48.91 Atrial fibrillation type: unspecified HTN (hypertension) I10 CAD (coronary artery disease) I25.10
[2021-02-11] MEDS: pregabalin 50 mg Capsule PO ×2 (14:07→18:16)
--- NOTE | 2021-02-11 14:42 | PC.CHAP ---
Pastoral Care Encounter/Spiritual Assessment Type of Contact [] Declined ekg monitor visit [] Patient/Family/Request visit [] Outpatient visit [] Follow-up visit [] Physician referral [] Code/Alert [] Routine visit [] Staff referral [] Actively dying [] Patient sleeping [] Family support [] [] Out of room [] Palliative care [] [] Receiving care in room [] Pre-surgical visit [] Trauma [] Long length of stay [] ICU visit [XX] Other: Isolation Relational/Emotional Strength [] Patient feels connected with others/family/visitors/staff [] Distress [] Loneliness/isolation [] Abandonment Spirituality of Patient [] Person of [place] [] Attends [employer] of their [place] [] Believes in Prayer [] Reads Bible or Islam materials [] There are Spiritual issues to be addressed Incendiaries Supervisor Interventions [] Prayer [] Active listening [] Non-anxious presence [] Spiritual/emotional support [] Crisis/trauma care [] Spiritual counseling [] Bereavement support [] Provided bereavement packet [] Provided Bible/devotional materials [] Provided toy/stuffed animal, coloring book to patient or family member [] Provided Communion [] Anointing/[place] [] Salvation [] Completed spiritual assessment [] Other: Impact on Illness or Injury [] Angry [] Fearful [] Anxious [] Often cries [] Exhaustion [] Unable to work [] Unable to attend spiritism [] Unable to walk/stand [] Unable to read [] Unable to drive [] Unable to eat/drink [] Unable to sleep [] Unable to be with family [] Patient intubated [] Other: Summary Time spent with patient
[2021-02-11 15:28] LABS: Glucose Point of Care 314 mg/dL (70-110)
[2021-02-11] MEDS: sodium chlor 0.9% + KCl 40 mEq 40 MEQ/1,000 ML BAG 50 MEQ IV (16:13)
[2021-02-11] MEDS: sertraline 50 mg Tablet 75 MG PO (17:37)
[2021-02-11 17:40] LABS: Glucose Point of Care 377 mg/dL (70-110)
[2021-02-11 20:41] LABS: Glucose Point of Care 305 mg/dL (70-110)
[2021-02-11] MEDS: insulin glargine 100 units/1 mL 40 UNIT SUBCUT (21:31)
[2021-02-12 04:00] VITALS: BP 101/60; PULSE 72; RESP 18; TEMP 36.9; O2SAT 97
[2021-02-12 06:19] LABS: Basophils % 0.4 %; Eosinophils # 0.2 10^3/uL (0.0-0.8); Eosinophils % 2.4 %; Hematocrit 44.9 % (37.0-47.0); Hemoglobin 14.4 g/dL (11.5-15.3); Lymphocytes % 25.5 %; Mean Corpuscular HGB Conc 32.1 g/dL (30.0-36.0); Mean Corpuscular Hemoglobin 28.4 pg (28.0-34.0); Mean Corpuscular Volume 88.6 fl (81-99); Monocytes # 0.5 10^3/uL (0.2-0.9); Monocytes % 6.8 %; Neutrophils # 4.99 10^3/uL (1.8-7.7); Neutrophils % 64.4 %; Nucleated Red Blood Cells % 0 %; Platelet Count 199 10^3/cmm (130-400); Red Blood Count 5.07 10^6/uL (4.1-5.3); Red Cell Distribution Width 14.6 % (12.1-15.1); White Blood Count 7.8 10^3/uL (4.0-10.0)
[2021-02-12 07:01] LABS: Alanine Aminotransferase 12 U/L (0-33); Albumin Level 2.9 g/dL (3.5-5.2); Alkaline Phosphatase 72 IU/L (35-105); Anion Gap 13.5 (5-19); Aspartate Amino Transferase 11 U/L (0-32); Blood Urea Nitrogen 30 mg/dL (8-23); Calcium 8.6 mg/dL (8.5-10.5); Carbon Dioxide 26 mmol/L (22-29); Chloride 103 mmol/L (98-107); Globulin 2.3 g/dL (1.3-4.6); Glomerular Filtration Rate 44.9 mL/min (90-130); Glucose 182 mg/dL (65-115); Osmolality Calculated 299 mOsm/kg (285-295); Potassium 3.5 mmol/L (3.5-5.1); Sodium 139 mmol/L (136-145); Total Bilirubin 0.2 mg/dL (0.15-1.2); Total Protein 5.2 g/dL (6.6-8.7)
[2021-02-12 07:10] VITALS: BP 123/72; PULSE 68; RESP 18; TEMP 37; O2SAT 91
[2021-02-12 08:05] LABS: Glucose Point of Care 166 mg/dL (70-110)
[2021-02-12] MEDS: pregabalin 50 mg Capsule PO (09:35)
[2021-02-12] MEDS: insulin glargine 100 units/1 mL 40 UNIT SUBCUT (09:35)
[2021-02-12] MEDS: atorvastatin 40 mg Tablet 20 MG PO (09:35)
[2021-02-12] MEDS: BuSPIRONE 10 mg Tablet PO (09:35)
[2021-02-12] MEDS: sertraline 50 mg Tablet 75 MG PO (09:36)
[2021-02-12] MEDS: allopurinol 300 mg Tablet PO (09:36)
[2021-02-12] MEDS: levothyroxine 50 mcg Tablet PO (09:37)
[2021-02-12] MEDS: dilTIAZem ER (24HR) 120 mg Capsule PO (09:37)
[2021-02-12] MEDS: metoprolol tartrate 50 mg Tablet 75 MG PO (09:37)
[2021-02-12] MEDS: apixaban 5 mg Tablet PO (09:38)
[2021-02-12 10:18] VITALS: PULSE 78; RESP 17; O2SAT 93
--- NOTE | 2021-02-12 11:03 | P.DS_ITS ---
Discharge Providers Date of Admission: 02/10/21 00:22 Date of Discharge: February 12, 2021 Attending Provider at Admission: Lela Arambula MD Attending Provider at Discharge: Saleem Sharpe MD Primary Care Provider: Farhat Acosta MD Diagnoses at Discharge Discharge Diagnosis (1) Hyperglycemia: Status: Acute (2) Hypokalemia: Status: Acute (3) Diarrhea: Status: Acute Qualifiers: Diarrhea type: unspecified type Qualified Code(s): R19.7 - Diarrhea, unspecified (4) Polypharmacy: Status: Acute (5) Generalized weakness: Status: Acute (6) Altered mental status: Status: Acute (7) Atrial fibrillation: Status: Acute Qualifiers: Atrial fibrillation type: unspecified Qualified Code(s): I48.91 - Unspecified atrial fibrillation (8) HTN (hypertension): Status: Acute (9) CAD (coronary artery disease): Status: Acute Permanent problem details: Last echocardiogram 08/06 with EF of 50% Reason for Visit Reason for Visit: HIGH BLOOD SUGAR/WEAKNESS Hospital Course Hospital Course Shauna Sena is a 65 year old female with past medical history of coronary disease, atrial fibrillation, diastolic heart failure and diabetes brought to the emergency room today due to increasing fatigue, generalized weakness, failure to thrive over the past 3-4 weeks. Patient states that she has been experiencing increased generalized weakness, is only able to ambulate short distances with her walker, feels as if she is in a fog , has had poor appetite with inconsistent diet over the above timeframe. She has not been able to check her blood sugar consistently as she recently moved into an apartment and has lost her glucometer. She was brought into the ER after being noted to be confused by her daughter. She describes this episode as not remembering the correct date, driving to her daughter's house 1 day prior to plan, while there reportedly she had slurred confused speech. At this present time patient has a slow speech, however she is alert awake and oriented x3. Labs upon presentation are notable for hyperglycemia with blood sugar greater than 600. She has not had an HbA1c checked and has not followed with primary care provider in a few months. Also notable is hypokalemia with K at 2.6. Patient reports diarrhea over the past 3 to 4 weeks. Per review of records he has had diarrhea and resulting hypokalemia dating back to December 2019. Patient endorses that this has been a chronic ongoing problem however more acutely worsened over the past 3 to 4 weeks. Denies any abdominal pain nausea or vomiting. Unable to state if she has had any weight loss or weight gain. Has not noted any blood or mucus in stools. No past history of C. difficile. No fever or recent sick contacts. Bilateral lower extremity have multiple scratch maradiaga which she states are from her kitten. She has been stressed over the past month and is quite tearful at interview today. States this is related to decisions regarding moving into assisted living facility as her family feels she is no longer appropriately able to care for herself. Patient was admitted to the hospital for altered mental status and was found to be severely hyperglycemic on admission along with electrolyte abnormalities including hypokalemia, GEORGES and dehydration. Patient was not in DKA but had component of HHS on admission. She was started on IV hydration and insulin as per aggressive insulin sliding scale. Electrolytes were replaced. It is believed patient's presenting symptoms of altered mental status and electrolyte abnormality is from her extensive hyperglycemia being complicated by polypharmacy for psych medications. Her multiple psych medications were ad justed.. HbA1c was checked and came back to 16.4. Patient responded well to the treatment and her glucose was well controlled during hospitalization. She has been discharged in hemodynamically stable condition with advised to take Lantus 50 units twice daily, continue taking Humulin 70/30 70 units daily, her dose of BuSpar has been decreased to 10 mg 3 times daily, her dose of Lyrica has been decreased to 75 mg at bedtime, sertraline has been changed from 200 mg daily to 75 mg twice daily and patient has been advised to stop vilazadone. All the medical changes were discussed in detail with the patient and she verbalized understanding. She is advised to follow-up with her primary care provider within next 1 week and referral has been sent for director of corporate marketing as well. Safe discharge planning were discussed with the patient with options for home health versus placement to SNF/assisted living. Patient denied need for SNF or assisted living. Was seen by physical therapy. She has been discharged while home health is being arranged. Physical Exam Narrative: EXAM NARRATIVE: General: No acute distress, AO x3 HEENT: PERRLA, pupils bilaterally equal and reactive Chest: Normal vesicular breath sounds, no added sounds, equal good air entry bilaterally CVS: S1-S2 regular, no murmurs, no tachycardia, no gallops, no rubs Abdomen: Soft, nontender, no organomegaly, bowel sounds present Neuro: No focal deficits, no facial deformity, AO x3, power 5/5 in all limbs Discharge Data Data Completed and Pending: Completed Studies During Hospitalization Category Date Time Status CT abdomen pelvis wo con [id number] Rout ine Cat Scan 02/10/21 07:40 Completed XR chest 1V juaquin ble [id number] Stat Exams 02/09/21 21:24 Completed Pending at discharge Category Date Time Status Clostridioides Di fficile PCR Routin e Lab 02/11/21 16:15 Results Enteric Bacterial Panel by PCR Rout ine Lab 02/11/21 16:15 Results Enteric Parasite Panel by PCR Routi ne Lab 02/11/21 16:15 Results Labs from last 24 hours 02/12/21 02/12/21 02/12/21 07:52 05:19 05:19 WBC 7.8 RBC 5.07 Hgb 14.4 Hct 44.9 MCV 88.6 MCH 28.4 MCHC 32.1 D RDW 14.6 Plt Count 199 MPV 12.0 H Neut % (Auto) 64.4 Lymph % (Auto) 25.5 Mclennan % (Auto) 6.8 Eos % (Auto) 2.4 Baso % (Auto) 0.4 Neut # (Auto) 4.99 Lymph # (Auto) 2.0 Mclennan # (Auto) 0.5 Eos # (Auto) 0.2 Baso # (Auto) 0.0 Nucleated RBC % (a uto) 0 Nucleated RBCs # 0.0 Sodium 139 Potassium 3.5 Chloride 103 Carbon Dioxide 26 Anion Gap 13.5 BUN 30 H Creatinine 1.2 H GFR Calculation 44.9 L Glucose 182 H POC Glucose 166 H Calculated Osmolal ity 299 H Calcium 8.6 Total Bilirubin 0.2 AST 11 ALT 12 Alkaline Phosphata se 72 Total Protein 5.2 L Albumin 2.9 L Globulin 2.3 02/11/21 02/11/21 02/11/21 20:37 17:38 15:24 WBC RBC Hgb Hct MCV MCH MCHC RDW Plt Count MPV Neut % (Auto) Lymph % (Auto) Mclennan % (Auto) Eos % (Auto) Baso % (Auto) Neut # (Auto) Lymph # (Auto) Mclennan # (Auto) Eos # (Auto) Baso # (Auto) Nucleated RBC % (a uto) Nucleated RBCs # Sodium Potassium Chloride Carbon Dioxide Anion Gap BUN Creatinine GFR Calculation Glucose POC Glucose 305 H 377 H 314 H Calculated Osmolal ity Calcium Total Bilirubin AST ALT Alkaline Phosphata se Total Protein Albumin Globulin 02/11/21 11:31 WBC RBC Hgb Hct MCV MCH MCHC RDW Plt Count MPV Neut % (Auto) Lymph % (Auto) Mclennan % (Auto) Eos % (Auto) Baso % (Auto) Neut # (Auto) Lymph # (Auto) Mclennan # (Auto) Eos # (Auto) Baso # (Auto) Nucleated RBC % (a uto) Nucleated RBCs # Sodium Potassium Chloride Carbon Dioxide Anion Gap BUN Creatinine GFR Calculation Glucose POC Glucose 223 H Calculated Osmolal ity Calcium Total Bilirubin AST ALT Alkaline Phosphata se Total Protein Albumin Globulin Addt'l Data from Hospital Stay: Laboratory Results WBC 7.8 10^3/uL (4.0- 10.0) 02/12/21 05:19 RBC 5.07 10^6/uL (4.1 -5.3) 02/12/21 05:19 Hgb 14.4 g/dL (11.5-1 5.3) 02/12/21 05:19 Hct 44.9 % (37.0-47.0 ) 02/12/21 05:19 MCV 88.6 fl (81-99) 02/12/21 05:19 MCH 28.4 pg (28.0-34. 0) 02/12/21 05:19 MCHC 32.1 g/dL (30.0-3 6.0) D 02/12/21 05:19 RDW 14.6 % (12.1-15.1 ) 02/12/21 05:19 Plt Count 199 10^3/cmm (130 -400) 02/12/21 05:19 MPV 12.0 fL (7.4-10.4 ) H 02/12/21 05:19 Neut % (Auto) 64.4 % 02/12/21 05:19 Lymph % (Auto) 25.5 % 02/12/21 05:19 Mclennan % (Auto) 6.8 % 02/12/21 05:19 Eos % (Auto) 2.4 % 02/12/21 05:19 Baso % (Auto) 0.4 % 02/12/21 05:19 Neut # (Auto) 4.99 10^3/uL (1.8 -7.7) 02/12/21 05:19 Lymph # (Auto) 2.0 10^3/uL (0.8- 4.8) 02/12/21 05:19 Mclennan # (Auto) 0.5 10^3/uL (0.2- 0.9) 02/12/21 05:19 Eos # (Auto) 0.2 10^3/uL (0.0- 0.8) 02/12/21 05:19 Baso # (Auto) 0.0 10^3/uL (0.0- 0.1) 02/12/21 05:19 Nucleated RBC % (a uto) 0 % 02/12/21 05:19 Nucleated RBCs # 0.0 /100WBC 02/12/21 05:19 Specimen Type Arterial 02/09/21 21:02 Sample Site Radial, left 02/09/21 21:02 ABG pH 7.62 (7.35-7.45) H* 02/09/21 21:02 ABG pCO2 31.2 mmHg (35-45) L 02/09/21 21:02 ABG pO2 99.7 mmHg (80.0-1 00.0) 02/09/21 21:02 ABG HCO3 32.3 mmol/L (22-2 6) H 02/09/21 21:02 ABG Base Excess 11.1 mmol/L (-2.0 -2.0) H 02/09/21 21:02 Hipolito Test Pos 02/09/21 21:02 Hematocrit 53.2 % (37-47) H 02/09/21 21:02 O2 Delivery Device Room air 02/09/21 21:02 FiO2 21.0 % 02/09/21 21:02 Videotape Recording Engineer ID [email or web address] 02/09/21 21:02 Sodium 139 mmol/L (136-1 45) 02/12/21 05:19 Potassium 3.5 mmol/L (3.5-5 .1) 02/12/21 05:19 Chloride 103 mmol/L (98-10 7) 02/12/21 05:19 Carbon Dioxide 26 mmol/L (22-29) 02/12/21 05:19 Anion Gap 13.5 (5-19) 02/12/21 05:19 BUN 30 mg/dL (8-23) H 02/12/21 05:19 Creatinine 1.2 mg/dL (0.5-0. 9) H 02/12/21 05:19 GFR Calculation 44.9 mL/min (90-1 30) L 02/12/21 05:19 Glucose 182 mg/dL (65-115 ) H 02/12/21 05:19 POC Glucose 321 mg/dL (70-110 ) H 02/12/21 11:01 Estimat Average Gl ucose 418 02/10/21 05:15 Hemoglobin A1c 16.2 % (4.0-6.0) H 02/10/21 05:15 Calculated Osmolal ity 299 mOsm/kg (285- 295) H 02/12/21 05:19 Calcium 8.6 mg/dL (8.5-10 .5) 02/12/21 05:19 Magnesium 1.8 mg/dL (1.7-2. 3) 02/10/21 05:15 Iron 63 ug/dL (37-145) 02/10/21 05:15 TIBC 227 mcg/dl 02/10/21 05:15 % Saturation 27.7 % (20-50) 02/10/21 05:15 Unsat Iron Binding 164 ug/dL (112-34 7) 02/10/21 05:15 Total Bilirubin 0.2 mg/dL (0.15-1 .2) 02/12/21 05:19 AST 11 U/L (0-32) 02/12/21 05:19 ALT 12 U/L (0-33) 02/12/21 05:19 Alkaline Phosphata se 72 IU/L (35-105) 02/12/21 05:19 Creatine Kinase 69 U/L (26-192) 02/10/21 05:15 Total Protein 5.2 g/dL (6.6-8.7 ) L 02/12/21 05:19 Albumin 2.9 g/dL (3.5-5.2 ) L 02/12/21 05:19 Globulin 2.3 g/dL (1.3-4.6 ) 02/12/21 05:19 Lipase 87 U/L (13-60) H 02/10/21 05:15 TSH 2.47 uIU/mL (0.27 -4.20) 02/10/21 05:15 Urine Color Yellow (Yellow) 02/10/21 10:09 Urine Appearance Clear (CLEAR) 02/10/21 10:09 Urine pH 5 (5-7) 02/10/21 10:09 Ur Specific Gravit y 1.010 (1.005-1.0 30) 02/10/21 10:09 Urine Protein Neg (Negative) 02/10/21 10:09 Urine Glucose (UA) 4+ (Normal) H 02/10/21 10:09 Urine Ketones Negative (Negati ve) 02/10/21 10:09 Urine Blood Neg (Negative) 02/10/21 10:09 Urine Nitrate Negative (Negati ve) 02/10/21 10:09 Urine Bilirubin Neg (Negative) 02/10/21 10:09 Urine Urobilinogen Norm mg/dL (Negat buddy) 02/10/21 10:09 Ur Leukocyte Lynda ase Negative (Negati ve) 02/10/21 10:09 Serum Ketones Negative (Negati ve) 02/09/21 20:33 Nasal/Oral COVID-1 9 PCR Not detected 02/10/21 06:29 Impressions Chest X-Ray 02/09/21 21:24 IMPRESSION: 1. Cardiomegaly. 2. Right hilar to lower lobe atelectasis versus minimal infiltrate. Abdomen/Pelvis CT 02/10/21 07:40 IMPRESSION: 1. No abdominal mass identified. 2. Prior cholecystectomy and hysterectomy. 3. No adenopathy or ascites. 4. New lytic area in the superior endplate of L4 needs further evaluation. This may be Schmorl's node or limbus deformity but metastatic lesion is not excluded. Recommend follow-up bone scan imaging or MRI lumbar spine with and without contrast. Vitals: Last Vital Signs Temp 98.6 F 02/12/21 07:10 Pulse 78 02/12/21 10:18 Resp 17 02/12/21 10:18 BP 123/72 02/12/21 07:10 Pulse Ox 93 02/12/21 10:18 Discharge Plan Discharge Patient Disposition: Home Health Service Condition: Stable Prescriptions: New buspirone 10 mg Tablet 10 mg PO TID 30 Days Qty: 90 RF: 0 sertraline 50 mg Tablet 75 mg PO BID 30 Days Qty: 90 RF: 0 Lyrica 50 mg Capsule 50 mg PO BID 30 Days Qty: 60 RF: 0 Lasix 20 mg tablet 20 mg PO DAILY PRN (Reason: edema) Qty: 10 RF: 0 potassium chloride 10 mEq capsule, extended release 10 meq PO DAILY Qty: 30 RF: 0 Continued hydrocodone-acetaminophen 5-325 mg tablet 1 - 2 tab PO Q8H PRN (Reason: Pain) RF: 0 allopurinol 300 mg tablet 300 mg PO DAILY RF: 0 apixaban 5 mg tablet 5 mg PO BID RF: 0 nitroglycerin 0.4 mg tablet, sublingual 0.4 mg SUBLINGUAL Q5M PRN (Reason: Chest Pain) RF: 0 simvastatin 80 mg tablet 40 mg PO DAILY RF: 0 albuterol sulfate [ProAir HFA] 90 mcg/actuation HFA aerosol inhaler 2 puff INHALATION Q6H PRN (Reason: Shortness Of Breath) RF: 0 levothyroxine 50 mcg capsule 50 mcg PO DAILY RF: 0 diltiazem HCl 120 mg capsule,extended release 24hr 120 mg PO DAILY Qty: 90 RF: 0 lorazepam 1 mg tablet 1 mg PO DAILY PRN (Reason: anxiety/insomnia) Qty: 45 RF: 2 Lantus U-100 Insulin 100 unit/mL solution 70 unit SUBCUT DAILY RF: 0 metoprolol tartrate 50 mg tablet 75 mg PO BID Qty: 90 RF: 0 potassium chloride 20 mEq tablet extended release 40 meq PO BID Qty: 0 RF: 0 Humulin 70/30 U-100 Insulin 100 unit/mL (70-30) Suspension 70 unit SUBCUT DAILY RF: 0 Changed Lantus U-100 Insulin 100 unit/mL solution 50 unit SUBCUT BID Qty: 0 RF: 0 lorazepam 1 mg tablet 0.5 mg PO DAILY PRN (Reason: anxiety/insomnia) Qty: 45 RF: 2 Discontinued furosemide [Lasix] 40 mg tablet See Rx Instructions .ROUTE .COMPLEX RF: 0 pregabalin [Lyrica] 150 mg capsule 150 mg PO BEDTIME RF: 0 buspirone 15 mg tablet 15 mg PO TID Qty: 90 RF: 2 sertraline 100 mg tablet 100 mg PO BID RF: 0 vilazodone 20 mg tablet 40 mg PO DAILY RF: 0 Discharge Orders: Discharge Order (Routine); Ordered 02/12/21 Ordered By: Saleem Sharpe Referrals: Farhat Acosta MD [Primary Care Provider] - 7-10 days Eren Sim MD [Physician] - 1 week (Severely uncontrolled type 2 diabetes mellitus. HbA1c 16.4.) Discharge Diet: Cardiac and Diabetic Discharge Activity: Resume usual activity Patient Instructions: Opioid Safety Activity Restrictions/Additional Instructions: Multiple medications does have been changed. Pregabalin 50 mg twice daily. Sertraline 75 mg twice daily. BuSpar 10 mg 3 times daily. Lasix 20 mg as needed. Potassium 10 mEq daily. Lantus 50 units twice daily. Vilazodone has been stopped Lorazepam has been changed to 0.5 mg daily as needed. Discharge Attestations Time Spent in Discharge Care*: greater than 30 min Specific Discharge Activities: educating patient, discussing with oil field caser/social workers/dc planners, documenting/other paperwork and evaluating patient/reviewing data Status at Discharge: Cognitive status at discharge: cognitively intact , B ehavioral status at discharge: cooperative , Functional status at discharge: uses cane/walker Overall status at discharge: patient is back to baseline Quality Metrics Clinical Quality Measures During this hospital stay, did patient experience: None Coding Level of Care Code Acute [facility] DC note Diagnoses Hyperglycemia R73.9 Hypokalemia E87.6 Diarrhea R19.7 Diarrhea type: unspecified type Polypharmacy Z79.899 Generalized weakness R53.1 Altered mental status R41.82 Atrial fibrillation I48.91 Atrial fibrillation type: unspecified HTN (hypertension) I10 CAD (coronary artery disease) I25.10
[2021-02-12 11:04] LABS: Glucose Point of Care 321 mg/dL (70-110)
[2021-02-12 11:27] VITALS: BP 129/71; PULSE 81; RESP 17; TEMP 36.9; O2SAT 95
[2021-02-12 14:52] VITALS: BP 129/71; PULSE 81; RESP 17; TEMP 36.9; O2SAT 95
--- NOTE | 2021-02-12 14:55 | PC.NURSE ---
IV removed intact and patient tolerated well. Patient is A&Ox3. Respirations even and non-labored on room air. Reviewed discharge with patient including changes made to her medications. Patient was given a written prescription for the Lyrica that changes were made to. Patient wheel chaired to her private car.
== END 2021-02-12 14:45 | disposition home health service (06) ==
LOC: ER 02-10 00:44 → MEDSURG 02-10 04:18
PROVIDERS: Nurse Practitioner Family; Admitting Provider Student in an Organized Health Care Education/Training Program; Emergency Provider Emergency Medicine; PCP Family Medicine; Visit Provider Student in an Organized Health Care Education/Training Program
DX: E11.65 Type 2 diabetes mellitus with hyperglycemia (principal); E87.6 Hypokalemia; R19.7 Diarrhea, unspecified; Z79.899 Other long term (current) drug therapy; R53.1 Weakness; R41.82 Altered mental status, unspecified; I48.91 Unspecified atrial fibrillation; I25.10 Atherosclerotic heart disease of native coronary artery without angina pectoris; E11.22 Type 2 diabetes mellitus with diabetic chronic kidney disease; I13.0 Hypertensive heart and chronic kidney disease with heart failure and stage 1 through stage 4 chronic kidney disease, or unspecified chronic kidney disease; N18.9 Chronic kidney disease, unspecified; I50.30 Unspecified diastolic (congestive) heart failure; Z79.4 Long term (current) use of insulin
CPT/HCPCS: 36415; 36416; 36600; 71045; 74176; 80048; 80053; 81003; 82009; 82550; 82803; 82962; 83036; 83540; 83550; 83690; 83735; 84443; 85025; 87493; 87506; 87635; 96365; 96366; 96372; 96375; 96376; 97116; 97161; 97165; 99285; G0378; J1815 ×2; J2405; J3480; J7030

== ENCOUNTER → 2021-02-22 07:43 | Outpatient (BNVA) | payer MEDICARE, MEDICAID, SELFPAY | PROVIDERS: PCP Family Medicine; Visit Provider Nurse Practitioner Psychiatric/Mental Health | DX: F41.1 Generalized anxiety disorder (principal); F33.2 Major depressive disorder, recurrent severe without psychotic features; G89.29 Other chronic pain | CPT/HCPCS: 99213 ==

== ENCOUNTER → 2021-04-19 08:33 | Outpatient (BNVA) | payer MEDICARE, MEDICAID, SELFPAY | PROVIDERS: PCP Family Medicine; Visit Provider Nurse Practitioner Psychiatric/Mental Health | DX: F41.1 Generalized anxiety disorder (principal); F33.2 Major depressive disorder, recurrent severe without psychotic features; G89.29 Other chronic pain | CPT/HCPCS: 99213 ==

== ENCOUNTER → 2021-07-12 07:54 | Outpatient (BNVA) | payer MEDICARE, MEDICAID, SELFPAY | PROVIDERS: PCP Family Medicine; Visit Provider Nurse Practitioner Psychiatric/Mental Health | DX: F41.1 Generalized anxiety disorder (principal); F33.2 Major depressive disorder, recurrent severe without psychotic features; G89.29 Other chronic pain | CPT/HCPCS: 99213 ==

== ENCOUNTER 2021-08-23 12:39 | Emergency (ER) | payer MEDICARE, MEDICAID, SELFPAY ==
[2021-08-23 12:47] VITALS: BP 174/87; PULSE 60; RESP 20; TEMP 36.4; O2SAT 100; BMI 41.8
--- NOTE | 2021-08-23 12:56 | W.ED.SOB ---
HPI - SOB/Dyspnea General: Chief Complaint: Shortness of Breath/Dyspnea Stated Complaint: SOB, Full of fluid, Sent by home health nurse Time Seen by Provider: 08/23/21 12:56 Source: patient Mode of arrival: ambulatory History of Present Illness: HPI Narrative: 65-year-old female presents to the emergency room with complaints of swelling in her legs weight gain of 9 pounds in the last week increasing orthopnea and mild chest discomfort. She has had all these things in the past. Not had any abdominal pain no vomiting or diarrhea no dysuria urgency or frequency.Patient also has some mild chronic kidney disease and atrial fibrillation. Known history of coronary artery disease. MD elicited complaint: shortness of breath and cough Pertinent past history: congestive heart failure Onset (ago): day(s) Timing: constant Severity: mild Exacerbating factors: nothing Relieving factors: nothing Known history of: congestive heart failure Associated symptoms: Reports chest pain; Deny abdominal pain, chest congestion, cough, diaphoresis, dizziness, extremity pain, fever(s), hemoptysis, lightheadedness, myalgias, nausea, orthopnea, palpitations, paresthesias, polydipsia, polyuria, rash, sense of impending doom, syncope or vomiting Treatment prior to arrival: none Review of Systems Const: Denies: fever(s) or diaphoresis ENMT: Denies: throat pain, ear or mastoid pain, nasal discharge or nasal congestion Card: Reports: chest pain; Denies: palpitations, lightheadedness, syncope or orthopnea Resp: Denies: hemoptysis or chest congestion GI: Denies: abdominal pain, nausea or vomiting : Denies: flank pain, difficulty voiding, dysuria, urinary frequency or urinary urgency Musc: Denies: extremity pain Skin/Breast: Denies: rash or pruritus Neuro: Denies: dizziness Endo: Denies: polyuria or polydipsia PFS ED PFSH: Medical History Amiodarone pulmonary toxicity Atrial fibrillation CAD (coronary artery disease) Last echocardiogram 08/06 with EF of 50% Chronic pain She reports taking pain medicines and muscle relaxers for a recent back injury; she has chronic left leg pain. Chronic respiratory failure CKD (chronic kidney disease) Depression Diabetes mellitus Fibromyalgia Gout HTN (hypertension) Hypercholesteremia Hyperlipidemia Hypothyroidism Major depressive disorder, recurrent severe without psychotic features Psychiatric care Surgical History H/O cardiac radiofrequency ablation H/O section H/O eye surgery H/O left knee surgery History of back surgery History of carpal tunnel release History of coronary artery stent placement History of hysterectomy partial History of incision and drainage Right breast abscess Hx of cholecystectomy Family History Mother Cancer breast Stroke Brother Heart disease Asthma Cancer prostate Sister Heart disease Social History Smoking and tobacco status: never smoked Alcohol intake: never Housing: Other Details: Currently with her family Physical Exam Const: COMMON NORMALS: no acute distress GENERAL APPEARANCE: cooperative and comfortable ORIENTATION/CONSCIOUSNESS: Yes awake, Yes oriented to person, Yes oriented to place and Yes oriented to time HENMT: COMMON NORMALS: normocephalic, atraumatic and hearing grossly normal bilaterally HEAD & SCALP: normocephalic and atraumatic Neck/C-Spine: COMMON NORMALS: no JVD Resp: COMMON NORMALS: normal respiratory effort, No retractions, No use of accessory muscles and clear to auscultation bilaterally AUSCULTATION: clear to auscultation bilaterally Cardio: COMMON NORMALS: no JVD, regular rate, regular rhythm and No murmurs present (Cardio) RATE: regular rate RHYTHM: regular rhythm GI: COMMON NORMALS: Soft to palpation and No hepatosplenomegaly present AUSCULTATION: Yes normoactive bowel sounds PALPATION: Yes Soft to palpation, No Tenderness to palpation present (GI), No Guarding due to palpation present (GI) and Yes No hepatosplenomegaly present Extremity: COMMON NORMALS: normal to inspection, capillary refill normal, no clubbing, cyanosis or edema, no calf tenderness and no pedal edema Neuro: SENSORIUM/ORIENTATION: Yes oriented to person, Yes oriented to place and Yes oriented to time Skin: COMMON NORMALS: no rashes or lesions noted GENERAL SKIN EXAM: no rashes or lesions noted Course Vital Signs: Vital signs: Vital Signs Temperature 97.5 F L 08/23/21 12:47 Pulse Rate 60 08/23/21 12:47 Respiratory Rate 20 H 08/23/21 12:47 Blood Pressure 174/87 08/23/21 12:47 Pulse Oximetry 100 08/23/21 12:47 MDM - SOB/Dyspnea Medical Decision Making Patient presented reporting feeling fluid overloaded with increased swelling in her legs. Shortly after arrival she was given Lasix IV. During the course of the work-up patient had significant urinary output is feeling better. Her breathing is improved per her report her vital signs remained stable we will go ahead and discharge her home. Increase her Lasix to 80 mg twice a day also increased her potassium chloride recheck with your primary care doctor within the week. Return if she has problems. Medical Records I reviewed the patient's medical records. Lab Data I reviewed the patient's lab results. : 08/23/21 13:00 08/23/21 13:00 Labs/Radiology: Radiology Impressions Chest X-Ray 08/23/21 12:57 IMPRESSION: Stable exam, no acute findings. Laboratory Results WBC 9.8 10^3/uL (4.0-10.0) 08/23/21 13:00 RBC 5.30 10^6/uL (4.1-5.3) 08/23/21 13:00 Hgb 14.3 g/dL (11.5-15.3) 08/23/21 13:00 Hct 46.3 % (37.0-47.0) 08/23/21 13:00 MCV 87.4 fl (81-99) 08/23/21 13:00 MCH 27.0 pg (28.0-34.0) L 08/23/21 13:00 MCHC 30.9 g/dL (30.0-36.0) 08/23/21 13:00 RDW 16.1 % (12.1-15.1) H 08/23/21 13:00 Plt Count 329 10^3/cmm (130-400) 08/23/21 13:00 MPV 10.9 fL (7.4-10.4) H 08/23/21 13:00 Neut % (Auto) 67.3 % 08/23/21 13:00 Lymph % (Auto) 21.5 % 08/23/21 13:00 [place]ard % (Auto) 7.8 % 08/23/21 13:00 Eos % (Auto) 2.4 % 08/23/21 13:00 Baso % (Auto) 0.6 % 08/23/21 13:00 Neut # (Auto) 6.58 10^3/uL (1.8-7.7) 08/23/21 13:00 Lymph # (Auto) 2.1 10^3/uL (0.8-4.8) 08/23/21 13:00 [place]ard # (Auto) 0.8 10^3/uL (0.2-0.9) 08/23/21 13:00 Eos # (Auto) 0.2 10^3/uL (0.0-0.8) 08/23/21 13:00 Baso # (Auto) 0.1 10^3/uL (0.0-0.1) 08/23/21 13:00 Nucleated RBC % (auto) 0 % 08/23/21 13:00 Nucleated RBCs # 0.0 /100WBC 08/23/21 13:00 Sodium 142 mmol/L (136-145) 08/23/21 13:00 Potassium 3.6 mmol/L (3.5-5.1) 08/23/21 13:00 Chloride 102 mmol/L (98-107) 08/23/21 13:00 Carbon Dioxide 29 mmol/L (22-29) 08/23/21 13:00 Anion Gap 14.6 (5-19) 08/23/21 13:00 BUN 23 mg/dL (8-23) 08/23/21 13:00 Creatinine 1.0 mg/dL (0.5-0.9) H 08/23/21 13:00 GFR Calculation 55.5 mL/min (90-130) L 08/23/21 13:00 Glucose 90 mg/dL (65-115) 08/23/21 13:00 Calculated Osmolality 297 mOsm/kg (285-295) H 08/23/21 13:00 Calcium 9.9 mg/dL (8.5-10.5) 08/23/21 13:00 Total Bilirubin 0.4 mg/dL (0.15-1.2) 08/23/21 13:00 AST 14 U/L (0-32) 08/23/21 13:00 ALT 29 U/L (0-33) 08/23/21 13:00 Alkaline Phosphatase 101 IU/L (35-105) 08/23/21 13:00 Troponin T Baseline 20 ng/L (0-10) H 08/23/21 13:00 Troponin T 120 Minute 21.24 ng/L (0-10) H 08/23/21 15:00 Delta Troponin T 1.24 ABS# (0-10) 08/23/21 15:00 NT-Pro-B Natriuret Pep 1374 pg/mL (0-125) H 08/23/21 13:00 Total Protein 7.3 g/dL (6.6-8.7) 08/23/21 13:00 Albumin 4.1 g/dL (3.5-5.2) 08/23/21 13:00 Globulin 3.2 g/dL (1.3-4.6) 08/23/21 13:00 Discharge Plan Discharge Patient Disposition: Home Clinical Impression: Congestive heart failure Condition: Stable Prescriptions: New Lasix 40 mg tablet 80 mg PO BID Qty: 60 0RF Rx Instructions: Take at 8 AM and 2 PM daily Changed potassium chloride 10 mEq capsule, extended release 20 meq PO TID Qty: 0 0RF Label Comments: dose increase from 10mEq daily to 20 mEq BID per patient report 04/18/21 Discontinued Lasix 20 mg tablet See Rx Instructions PO BID 0RF Rx Instructions: 80mg po AM and 40mg PO HS PO twice a day; No Action hydrocodone-acetaminophen 5-325 mg tablet 1 - 2 tab PO Q8H PRN (Reason: Pain) 0RF allopurinol 300 mg tablet 300 mg PO DAILY 0RF apixaban 5 mg tablet 5 mg PO BID 0RF nitroglycerin 0.4 mg tablet, sublingual 0.4 mg SUBLINGUAL Q5M PRN (Reason: Chest Pain) 0RF simvastatin 80 mg tablet 40 mg PO DAILY 0RF Rx Instructions: DOSE CHANGE albuterol sulfate [ProAir HFA] 90 mcg/actuation HFA aerosol inhaler 2 puff INHALATION Q6H PRN (Reason: Shortness Of Breath) 0RF levothyroxine 50 mcg capsule 50 mcg PO DAILY 0RF Lantus U-100 Insulin 100 unit/mL solution 70 unit SUBCUT BID 0RF Label Comments: dose increased from 50units to 70units 04/18/21 per patient report sertraline 50 mg tablet 100 mg PO .COMPLEX Qty: 90 2RF Rx Instructions: Take two tablets by mouth every morning and one in the evening buspirone 10 mg tablet 10 mg PO TID Qty: 90 2RF Rx Instructions: Take 1 tablet by mouth every morning, afternoon, and evening lorazepam 0.5 mg tablet 0.5 mg PO BID PRN (Reason: anxiety) Qty: 60 2RF Rx Instructions: Take 1 tablet once or twice daily, if needed for anxiety diltiazem HCl 120 mg capsule,extended release 24hr 120 mg PO DAILY Qty: 90 0RF metoprolol tartrate 50 mg tablet 75 mg PO BID Qty: 90 0RF Discharge Orders: Discharge ED (Routine); Ordered 08/23/21 Ordered By: Sam Rodriguez Referrals: Farhat Acosta MD [Primary Care Provider] - Discharge Diet: Usual diet Discharge Activity: Increase activity as tolerated Patient Instructions: Opioid Safety Activity Restrictions/Additional Instructions: Increase Lasix and potassium as above recheck with your doctor in the next 2 to 3 days Coding Level of Care Code ED Power Plant 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
--- NOTE | 2021-08-23 12:57 | ECG_ITS ---
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 Measurements Intervals [place] Rate: 55 P: MD: QRS: 44 QRSD: 113 T: 43 QT: 449 QTc: 431 Interpretive Statements ATRIAL FIBRILLATION WITH SLOW VENTRICULAR RESPONSE INDETERMINATE AXIS MODERATE INTRAVENTRICULAR CONDUCTION DELAY [110+ ms QRS DURATION] MINIMAL ST DEPRESSION [0.025+ mV ST DEPRESSION] Compared to ECG 12/28/2019 13:36:17 Indeterminate axis now present Intraventricular conduction delay now present ST (T wave) deviation now present Sinus tachycardia no longer present Short MD interval no longer present T-wave abnormality no longer present Electronically Signed On 08-23-2021 17:29:26 JACK SPINNER by Seth Santillna M.D. [id number]
--- NOTE | 2021-08-23 12:57 | XRR_ITS ---
PROCEDURE INFORMATION: Exam: XR Chest Exam date and time: 08/23/2021 12:57 PM Age: 65 years old Clinical indication: Cough and dyspnea; Additional info: Dyspnea/cough TECHNIQUE: Imaging protocol: XR of the chest. Views: 1 view. COMPARISON: CR XR chest 1V portable [id number] 02/09/2021 9:24 PM FINDINGS: Lungs: Unremarkable. No consolidation. Pleural spaces: Unremarkable. No pleural effusion. No pneumothorax. Heart/Mediastinum: Mild cardiomegaly, similar to prior study. Bones/joints: Unremarkable. XR/XR chest 1V portable [id number] IMPRESSION: Stable exam, no acute findings.
[2021-08-23 13:24] LABS: Basophils # 0.1 10^3/uL (0.0-0.1); Basophils % 0.6 %; Eosinophils # 0.2 10^3/uL (0.0-0.8); Eosinophils % 2.4 %; Hematocrit 46.3 % (37.0-47.0); Hemoglobin 14.3 g/dL (11.5-15.3); Lymphocytes # 2.1 10^3/uL (0.8-4.8); Lymphocytes % 21.5 %; Mean Corpuscular HGB Conc 30.9 g/dL (30.0-36.0); Mean Corpuscular Volume 87.4 fl (81-99); Mean Platelet Volume 10.9 fL (7.4-10.4); Monocytes # 0.8 10^3/uL (0.2-0.9); Monocytes % 7.8 %; Neutrophils # 6.58 10^3/uL (1.8-7.7); Neutrophils % 67.3 %; Nucleated Red Blood Cells % 0 %; Platelet Count 329 10^3/cmm (130-400); Red Cell Distribution Width 16.1 % (12.1-15.1); White Blood Count 9.8 10^3/uL (4.0-10.0)
[2021-08-23] MEDS: FUROsemide 10 mg/mL SDV 10mL 100 MG IVP (13:24)
[2021-08-23 13:51] LABS: Alanine Aminotransferase 29 U/L (0-33); Albumin Level 4.1 g/dL (3.5-5.2); Alkaline Phosphatase 101 IU/L (35-105); Anion Gap 14.6 (5-19); Aspartate Amino Transferase 14 U/L (0-32); Blood Urea Nitrogen 23 mg/dL (8-23); Calcium 9.9 mg/dL (8.5-10.5); Carbon Dioxide 29 mmol/L (22-29); Chloride 102 mmol/L (98-107); Globulin 3.2 g/dL (1.3-4.6); Glomerular Filtration Rate 55.5 mL/min (90-130); Glucose 90 mg/dL (65-115); NT Pro B Type Natriuretic Pept 1374 pg/mL (0-125); Osmolality Calculated 297 mOsm/kg (285-295); Potassium 3.6 mmol/L (3.5-5.1); Sodium 142 mmol/L (136-145); Total Bilirubin 0.4 mg/dL (0.15-1.2); Total Protein 7.3 g/dL (6.6-8.7)
[2021-08-23 14:13] LABS: Troponin(5th) Baseline 20 ng/L (0-10)
[2021-08-23] MEDS: acetaminophen 500 mg Tablet 1000 MG PO (14:24)
[2021-08-23 15:30] LABS: Troponin 5 2HR 21.24 ng/L (0-10)
[2021-08-23 15:34] LABS: Troponin 5 2HR Delta 1.24 ABS# (0-10)
== END 2021-08-23 15:56 | disposition home or self-care (01) ==
PROVIDERS: Emergency Provider Family Medicine; PCP Family Medicine
DX: I11.0 Hypertensive heart disease with heart failure (principal); I50.9 Heart failure, unspecified; Z79.4 Long term (current) use of insulin; I25.10 Atherosclerotic heart disease of native coronary artery without angina pectoris; E11.9 Type 2 diabetes mellitus without complications; E78.5 Hyperlipidemia, unspecified
CPT/HCPCS: 71045; 80053; 83880; 84484; 85025; 93005; 96374; 99283; J1940

== ENCOUNTER → 2021-09-12 15:05 | Outpatient (BNVA) | payer MEDICARE, MEDICAID, SELFPAY | PROVIDERS: PCP Family Medicine; Visit Provider Internal Medicine Cardiovascular Disease | DX: I12.9 Hypertensive chronic kidney disease with stage 1 through stage 4 chronic kidney disease, or unspecified chronic kidney disease (principal); E78.5 Hyperlipidemia, unspecified; I25.10 Atherosclerotic heart disease of native coronary artery without angina pectoris; E11.22 Type 2 diabetes mellitus with diabetic chronic kidney disease | CPT/HCPCS: 99214 ==

== ENCOUNTER 2021-10-03 13:09 | Outpatient (CLI) | payer MEDICARE, SELFPAY ==
--- NOTE | 2021-10-03 13:17 | MM_ITS ---
WS: [id number] VIEWS: MLO and CC views both breasts. 3D digital tomosynthesis is also included in this exam. Comparison made with prior exam of 06/24/2019. Findings: Nodular density containing coarse calcification seen near the skin surface along the medial inferior aspect of the left breast on the cc view only. This may represent a mole containing talcum powder. Re commend repeat craniocaudal view with mole markers in place as well as thorough cleansing of the left breast before imaging. There are no other changes in either breast since the prior study.Scattered f ibroglandular densities MM/[place] [id number] Impression: BI-RADS: 0-Incomplete: Need additional imaging evaluation FOLLOW-UP: See Report This mammogram was also analyzed by the Computer Aided Detection System R2 Imag e Railway Signal Technician.
== END 2021-10-03 13:10 | disposition home or self-care (01) ==
PROVIDERS: PCP Family Medicine; Visit Provider Family Medicine
DX: Z12.31 Encounter for screening mammogram for malignant neoplasm of breast (principal)
CPT/HCPCS: 77063; 77067

== ENCOUNTER 2021-10-17 12:54 | Outpatient (CLI) | payer MEDICARE, SELFPAY ==
--- NOTE | 2021-10-17 13:03 | MM_ITS ---
WS: [id number] LEFT 3D TOMOSYNTHESIS DIGITAL MAMMOGRAPHY WITH CAD CLINICAL INFORMATION: ABNORMAL MAMMOGRAM COMPARISON: October 03, 2021 TECHNIQUE: 3 views of the left breast were obtained. FINDINGS: Scattered fibroglandular densities of the left breast. Previously described cluster calcifications ar e less conspicuous today. Multiple mole markers overlying the area of prior calcifications which have nearly resolved. A few residual incidental calcifications in this area. No suspicious findings. No suspicious focal mass, asymmetry, calcifications, or architectural distortion. No evidence of jana gnancy. MM/[id number] IMPRESSION: BI-RADS: 2-Benign FOLLOW UP: 1 Year Follow-up Recommend return to annual screening mammography.
== END 2021-10-17 12:55 | disposition home or self-care (01) ==
LOC: RAD 12:55
PROVIDERS: PCP Family Medicine; Visit Provider Family Medicine
DX: R92.8 Other abnormal and inconclusive findings on diagnostic imaging of breast (principal)
CPT/HCPCS: 77061

== ENCOUNTER → 2021-10-25 09:06 | Outpatient (BNVA) | payer MEDICARE, MEDICAID, SELFPAY | PROVIDERS: PCP Family Medicine; Visit Provider Nurse Practitioner Psychiatric/Mental Health | DX: F41.1 Generalized anxiety disorder (principal); F33.2 Major depressive disorder, recurrent severe without psychotic features; G89.29 Other chronic pain | CPT/HCPCS: 99214 ==

== ENCOUNTER → 2021-11-29 07:19 | Outpatient (BNVA) | payer MEDICARE, MEDICAID, SELFPAY | PROVIDERS: PCP Family Medicine; Visit Provider Nurse Practitioner Psychiatric/Mental Health | DX: F41.1 Generalized anxiety disorder (principal); F33.2 Major depressive disorder, recurrent severe without psychotic features; G89.29 Other chronic pain | CPT/HCPCS: 99214 ==

== ENCOUNTER 2021-12-13 16:50 | Emergency (ER) | payer MEDICARE, MEDICAID, SELFPAY ==
[2021-12-13 17:33] VITALS: BP 158/90; PULSE 71; RESP 16; TEMP 37.1; O2SAT 96; BMI 39.8
--- NOTE | 2021-12-13 17:43 | W.ED.BACK ---
HPI - Back Pain/Injury General: Chief Complaint: Back Pain/Injury Stated Complaint: back pain Time Seen by Provider: 12/13/21 17:43 History of Present Illness: 66-year-old female comes in today with complaints of low back pain increasing over the last week. Patient reports on last Sunday she started having pain in her low back radiating down her left leg. Today the pain seemed to worsen affecting her right side also. Patient denies any loss of bowel or bladder control. Patient has a history of diabetes, COPD, coronary artery disease, and chronic kidney disease. Patient appears chronically ill. Patient appears nontoxic. Patient appears in moderate pain. Associated symptoms: Deny nausea or vomiting Review of Systems General: Reports: 10 or more systems reviewed and unremarkable except in HPI and below Card: Denies: chest pain Resp: Denies: dyspnea GI: Denies: nausea or vomiting : Denies: difficulty voiding Musc: Reports: back pain Skin/Breast: Denies: rash PFSH ED PFSH: Medical History (Updated 12/13/21 @ 17:58 by MARCIA Croft) Amiodarone pulmonary toxicity Atrial fibrillation CAD (coronary artery disease) Last echocardiogram 08/06 with EF of 50% Chronic pain She reports taking pain medicines and muscle relaxers for a recent back injury; she has chronic left leg pain. Chronic respiratory failure CKD (chronic kidney disease) Depression Diabetes mellitus Fibromyalgia Gout HTN (hypertension) Hypercholesteremia Hyperlipidemia Hypothyroidism Major depressive disorder, recurrent severe without psychotic features Psychiatric care Surgical History H/O cardiac radiofrequency ablation H/O section H/O eye surgery H/O left knee surgery History of back surgery History of carpal tunnel release History of coronary artery stent placement History of hysterectomy partial History of incision and drainage Right breast abscess Hx of cholecystectomy Family History Mother Cancer breast Stroke Brother Heart disease Asthma Cancer prostate Sister Heart disease Social History Smoking and tobacco status: never smoked Alcohol intake: never Housing: Other Details: Currently with her family Physical Exam Const: COMMON NORMALS: alert HENMT: COMMON NORMALS: atraumatic HEAD & SCALP: atraumatic Neck/C-Spine: COMMON NORMALS: full ROM Resp: COMMON NORMALS: normal respiratory effort and clear to auscultation bilaterally AUSCULTATION: clear to auscultation bilaterally Cardio: COMMON NORMALS: regular rate RATE: regular rate Back/Pelvis: THORACIC SPINE/UPPER BACK: No thoracic spinal tenderness LUMBAR SPINE/LOWER BACK: No lumbar spinal tenderness and Yes paraspinal muscle tenderness Lumbar paraspinal muscle tenderness: bilateral Neuro: SENSORIUM/ORIENTATION: Yes alert Skin: COMMON NORMALS: no rashes or lesions noted GENERAL SKIN EXAM: no rashes or lesions noted Course Vital Signs: Vital signs: Vital Signs Temperature 98.7 F 12/13/21 17:33 Pulse Rate 71 12/13/21 17:33 Respiratory Rate 16 12/13/21 17:33 Blood Pressure 158/90 12/13/21 17:33 Pulse Oximetry 96 12/13/21 17:33 MDM - Back Pain/Injury Medical Decision Making 66-year-old female comes in today with complaints of low back pain starting last Sunday. Patient reports the pain for started in her low back radiating down her left leg. Today patient noticed more pain and difficulty with the right leg also now. Patient appears nontoxic. Patient appears in mild to moderate pain. Patient has difficulty standing due to disc discomfort. Differential diagnosis includes but not limited to exacerbation of chronic back pain, intervertebral disc disease, facet arthropathy. Patient does have a history of a lumbar fusion that was done many years ago. Patient has no spinal tenderness of the lumbar spin. Patient was given 50 mg of Toradol IM, and 1 hydrocodone tablet. Patient be continued on Celebrex 100 mg twice a day for pain and inflammation along with some hydrocodone. Encourage plenty of fluids of medication and follow-up with primary care for further instruction. Patient agreed with plan and has appointment to see primary care tomorrow. Discharge Plan Discharge Patient Disposition: Home Clinical Impression: Lumbar radiculopathy Condition: Stable Prescriptions: New celecoxib 100 mg capsule 100 mg PO BID Qty: 30 0RF Continued hydrocodone-acetaminophen 5-325 mg tablet 1 - 2 tab PO Q8H PRN (Reason: Pain) Qty: 14 0RF No Action allopurinol 300 mg tablet 300 mg PO DAILY 0RF apixaban 5 mg tablet 5 mg PO BID 0RF nitroglycerin 0.4 mg tablet, sublingual 0.4 mg SUBLINGUAL Q5M PRN (Reason: Chest Pain) 0RF simvastatin 80 mg tablet 40 mg PO DAILY 0RF Rx Instructions: DOSE CHANGE albuterol sulfate [ProAir HFA] 90 mcg/actuation HFA aerosol inhaler 2 puff INHALATION Q6H PRN (Reason: Shortness Of Breath) 0RF levothyroxine 50 mcg capsule 50 mcg PO DAILY 0RF Lantus U-100 Insulin 100 unit/mL solution 70 unit SUBCUT BID 0RF Label Comments: dose increased from 50units to 70units 04/18/21 per patient report furosemide 40 mg tablet 40 mg PO TID PRN (Reason: edema) 0RF duloxetine 60 mg capsule,delayed release(DR/EC) 60 mg PO DAILY Qty: 30 2RF Rx Instructions: Take one capsule by mouth every morning with the 30 mg capsule duloxetine 30 mg capsule,delayed release(DR/EC) 30 mg PO DAILY Qty: 30 2RF Rx Instructions: Take one capsule by mouth every morning with the 60 mg capsule buspirone 10 mg tablet 10 mg PO TID Qty: 90 3RF Rx Instructions: Take 1 tablet by mouth every morning, afternoon, and evening lorazepam 0.5 mg tablet 0.5 mg PO BID PRN (Reason: anxiety) Qty: 60 3RF Rx Instructions: Take 1 tablet once or twice daily, if needed for anxiety diltiazem HCl 120 mg capsule,extended release 24hr 120 mg PO DAILY Qty: 90 0RF metoprolol tartrate 50 mg tablet 75 mg PO BID Qty: 90 0RF potassium chloride 10 mEq capsule, extended release 20 meq PO TID Qty: 0 0RF Label Comments: dose increase from 10mEq daily to 20 mEq BID per patient report 04/18/21 Discharge Orders: Discharge ED (Routine); Ordered 12/13/21 Ordered By: Dom Self Referrals: Farhat Acosta MD [Primary Care Provider] - Discharge Diet: Usual diet Discharge Activity: Increase activity as tolerated Patient Instructions: Back Pain (ED), Opioid Safety Activity Restrictions/Additional Instructions: Take medication as directed. Drink plenty of water with medicine. Follow-up with primary care for further instruction. 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
[2021-12-13] MEDS: HYDROcodone-acetaminophen 10-325 mg Tablet 1 TAB PO (18:11)
[2021-12-13] MEDS: ketorolac 30 mg/mL INJ IM (18:11)
== END 2021-12-13 18:31 | disposition home or self-care (01) ==
PROVIDERS: Emergency Provider Nurse Practitioner Family; PCP Family Medicine
DX: M54.16 Radiculopathy, lumbar region (principal); Z79.4 Long term (current) use of insulin; I25.10 Atherosclerotic heart disease of native coronary artery without angina pectoris; E11.9 Type 2 diabetes mellitus without complications; I10 Essential (primary) hypertension; E78.5 Hyperlipidemia, unspecified
CPT/HCPCS: 96372; 99284; J1885

== ENCOUNTER 2021-12-18 15:29 | Emergency (ER) | payer MEDICARE, MEDICAID, SELFPAY ==
[2021-12-18 15:39] VITALS: BP 136/72; PULSE 74; RESP 16; TEMP 37; O2SAT 100; BMI 39.8
--- NOTE | 2021-12-18 15:40 | W.ED.BACK ---
HPI - Back Pain/Injury General: Chief Complaint: Back Pain/Injury Stated Complaint: LOW BACK PAIN Time Seen by Provider: 12/18/21 15:39 History of Present Illness: Ms. Sena is a 66-year-old lady with history of hypertension, hyperlipidemia, obesity, CKD, diabetes who presents to the emergency department due to back pain. Onset of symptoms was approximately a week and half ago without known specific provoking factor. She was seen in the emergency department on 12/13 and diagnosed with a lumbar radiculopathy. Despite treatment symptoms have persisted. She describes a spasming pain in the left lower back and burning pain going down the posterior aspect of her left leg all the way to the toes. Symptoms are worse with movement but do not go with rest. Denies associated saddle anesthesia, loss of continence or control of bowel or bladder, or any other red flag symptoms. No other specific changes in health, exacerbating, or alleviating factors identified. Onset (ago): week(s) Severity: moderate Similar Symptoms Previously: No Quality: sharp, aching and spasming Location: lumbar spine and left lower back Radiation: left upper leg and left leg below the knee Exacerbating factors: movement Relieving factors: none Associated symptoms: Reports no associated symptoms Treatments prior to arrival: prescription analgesics Review of Systems General: Reports: 10 or more systems reviewed and unremarkable except in HPI and below PFSH ED PFSH: Medical History Amiodarone pulmonary toxicity Atrial fibrillation CAD (coronary artery disease) Last echocardiogram 08/06 with EF of 50% Chronic pain She reports taking pain medicines and muscle relaxers for a recent back injury; she has chronic left leg pain. Chronic respiratory failure CKD (chronic kidney disease) Depression Diabetes mellitus Fibromyalgia Gout HTN (hypertension) Hypercholesteremia Hyperlipidemia Hypothyroidism Major depressive disorder, recurrent severe without psychotic features Psychiatric care Surgical History H/O cardiac radiofrequency ablation H/O section H/O eye surgery H/O left knee surgery History of back surgery History of carpal tunnel release History of coronary artery stent placement History of hysterectomy partial History of incision and drainage Right breast abscess Hx of cholecystectomy Family History Mother Cancer breast Stroke Brother Heart disease Asthma Cancer prostate Sister Heart disease Social History Smoking and tobacco status: never smoked Alcohol intake: never Housing: Other Details: Currently with her family Physical Exam Const: COMMON NORMALS: alert GENERAL APPEARANCE: cooperative, well developed and in distress (Uncomfortable due to pain) HENMT: COMMON NORMALS: normocephalic and atraumatic HEAD & SCALP: normocephalic and atraumatic Eye: COMMON NORMALS: conjunctivae normal CONJUNCTIVA: Yes conjunctivae normal SCLERA: sclerae normal Neck/C-Spine: COMMON NORMALS: supple GENERAL: Yes trachea midline Resp: COMMON NORMALS: normal respiratory effort and clear to auscultation bilaterally EFFORT & INSPECTION: Yes able to speak in complete sentences AUSCULTATION: clear to auscultation bilaterally Cardio: COMMON NORMALS: regular rate and regular rhythm RATE: regular rate RHYTHM: regular rhythm GI: COMMON NORMALS: Soft to palpation PALPATION: Yes Soft to palpation and No Tenderness to palpation present (GI) PERCUSSION: normal to percussion Back/Pelvis: OTHER: Tenderness in left paraspinal region and mild inferior midline. There is some paraspinal tenderness to palpation as well. No overlying skin lesions. Extremity: GENERAL: Yes normal exam except as noted and No edema Neuro: COMMON NORMALS: moves all extremities SENSORIUM/ORIENTATION: Yes alert and No Orientation impaired Psych: COMMON NORMALS: mental status grossly normal and Normal thought process present THOUGHT PROCESS: Normal thought process present Course ED course: - Patient was seen and evaluated by me at bedside - Patient placed on cardiac monitors, IV access obtained - Initial evaluation notable for exam as above - Labs and xrays personally interpreted by me - Symptom treatment given - Labs notable for no evidence of urinary tract infection given squamous epithelial contamination - Imaging notable for progressive worsening of degenerative changes with disc herniation. - Upon serial reexamination after treatment the patient was improved with treatment - Based on patient history, evaluation, and testing as interpreted the most likely cause of the patient's condition is back pain with lumbar radiculopathy secondary to degenerative disc disease without emergent indication for surgery - The results of ED evaluation were discussed with the patient including prescriptions and/or symptomatic cares (if applicable) including appropriate and responsible use, followup plan, and return precautions. The patient verbalized understanding and felt safe for discharge. - Patient discharged in satisfactory condition. Note: Click bubbles or prepopulated issa in note writing are used for assistance with data collection and billing and are inherently more limited than narrative and other text portions of this note. Please use narrative for additional clinical history and defer to narrative/free test for any case of contradictory information. If information appears in only free text or click bubble it should be considered present or absent as reported. Please contact note scientific technical writer for clarifications of clinical information or contradictory information. MDM is a brief summary, contradictory or erroneous seeming information should be clarified and full note should be reviewed. Vital Signs: Vital signs: Vital Signs Temperature 98.6 F 12/18/21 15:39 Pulse Rate 75 12/18/21 21:10 Respiratory Rate 18 12/18/21 21:10 Blood Pressure 134/87 12/18/21 20:36 Pulse Oximetry 98 12/18/21 21:10 MDM - Back Pain/Injury Medical Decision Making 66-year-old lady continued back pain which was nontraumatic in onset. There is a radicular component with radiation up the leg. Spinal stenosis and degenerative changes noted on CT. No red flag symptoms. Satisfactory for outpatient management and follow-up with pain management and spine surgery. Patient improved with symptom treatment and additional treatment will be prescribed. Medical Records I reviewed the patient's medical records. Labs I reviewed the patient's lab results. Radiology Impressions Lumbar Spine CT 12/18/21 15:56 IMPRESSION: 1. Large superior endplate Schmorl's node and associated disc herniation with severe spinal stenosis at L3-4 is progressive since 02/10/2021. 2. No acute fracture. Laboratory Results Urine Color Straw (Yellow) 12/18/21 17:00 Urine Appearance Sl hazy (CLEAR) 12/18/21 17:00 Urine pH 5 (5-7) 12/18/21 17:00 Ur Specific [place] 1.015 (1.005-1.030) 12/18/21 17:00 Urine Protein 1+ (Negative) H 12/18/21 17:00 Urine Glucose (UA) Trace (Normal) H 12/18/21 17:00 Urine Ketones Negative (Negative) 12/18/21 17:00 Urine Blood 2+ (Negative) H 12/18/21 17:00 Urine Nitrate Negative (Negative) 12/18/21 17:00 Urine Bilirubin Neg (Negative) 12/18/21 17:00 Urine Urobilinogen Norm mg/dL (Negative) 12/18/21 17:00 Ur Leukocyte Esterase Negative (Negative) 12/18/21 17:00 Urine RBC Rare /hpf (0-2) 12/18/21 17:00 Urine WBC 0-4 /hpf (0-5) H 12/18/21 17:00 Ur Squamous Epith Cells 10-15 /hpf (0-5) H 12/18/21 17:00 Amorphous Sediment Not Reportable 12/18/21 17:00 Urine Bacteria 1+ /hpf (NONE) H 12/18/21 17:00 Discharge Plan Discharge Patient Disposition: Home Clinical Impression: Back pain, Lumbar radiculopathy, Spinal stenosis of lumbar region Condition: Stable Prescriptions: New oxycodone 5 mg tablet 5 mg PO Q6H PRN (Reason: pain) Qty: 8 0RF No Action allopurinol 300 mg tablet 300 mg PO DAILY 0RF apixaban 5 mg tablet 5 mg PO BID 0RF nitroglycerin 0.4 mg tablet, sublingual 0.4 mg SUBLINGUAL Q5M PRN (Reason: Chest Pain) 0RF simvastatin 80 mg tablet 40 mg PO DAILY 0RF Rx Instructions: DOSE CHANGE albuterol sulfate [ProAir HFA] 90 mcg/actuation HFA aerosol inhaler 2 puff INHALATION Q6H PRN (Reason: Shortness Of Breath) 0RF levothyroxine 50 mcg capsule 50 mcg PO DAILY 0RF Lantus U-100 Insulin 100 unit/mL solution 70 unit SUBCUT BID 0RF Label Comments: dose increased from 50units to 70units 04/18/21 per patient report furosemide 40 mg tablet 40 mg PO TID PRN (Reason: edema) 0RF duloxetine 60 mg capsule,delayed release(DR/EC) 60 mg PO DAILY Qty: 30 2RF Rx Instructions: Take one capsule by mouth every morning with the 30 mg capsule duloxetine 30 mg capsule,delayed release(DR/EC) 30 mg PO DAILY Qty: 30 2RF Rx Instructions: Take one capsule by mouth every morning with the 60 mg capsule buspirone 10 mg tablet 10 mg PO TID Qty: 90 3RF Rx Instructions: Take 1 tablet by mouth every morning, afternoon, and evening lorazepam 0.5 mg tablet 0.5 mg PO BID PRN (Reason: anxiety) Qty: 60 3RF Rx Instructions: Take 1 tablet once or twice daily, if needed for anxiety diltiazem HCl 120 mg capsule,extended release 24hr 120 mg PO DAILY Qty: 90 0RF metoprolol tartrate 50 mg tablet 75 mg PO BID Qty: 90 0RF potassium chloride 10 mEq capsule, extended release 20 meq PO TID Qty: 0 0RF Label Comments: dose increase from 10mEq daily to 20 mEq BID per patient report 04/18/21 celecoxib 100 mg capsule 100 mg PO BID Qty: 30 0RF hydrocodone-acetaminophen 5-325 mg tablet 1 - 2 tab PO Q8H PRN (Reason: Pain) Qty: 14 0RF Discharge Orders: Discharge ED (Routine); Ordered 12/18/21 Ordered By: Yaya Paulino Referrals: Farhat Acosta MD [Primary Care Provider] - Discharge Diet: Usual diet Discharge Activity: Increase activity as tolerated Patient Instructions: Lumbar Spinal Stenosis (ED), Lumbar Radiculopathy (ED), Lower Back Exercises (ED), Opioid Safety Activity Restrictions/Additional Instructions: Thank you for visiting the emergency department. You were seen and evaluated for back pain. The exact cause of your symptoms is likely multifactorial. You appear to have a lumbar radiculopathy component of your pain which is likely secondary to disc herniation with severe spinal stenosis at L3-4. Please take Tylenol and ibuprofen for pain. Additionally I will give you a prescription for oxycodone for severe pain not improved with the other medications. Do not combine with other sedating medications or substances. Do not operate machinery or drive while under the influence. Common side effects are constipation. Additionally I will give you a prescription for Protonix that you should take well taking daily NSAIDs for GI protection. I will message case management for a follow-up with pain management as well as our spine surgeon Dr. Duggan. Please follow-up with your primary care provider. Please return to the emergency department for uncontrolled symptoms, any new numbness in the groin or inner legs, inability to control bowel or bladder, or anything else that you are concerned about and feel needs emergency department evaluation. Coding Level of Care Code ED Parts Salvager for Gerson Fwd Exam Comprehensive
--- NOTE | 2021-12-18 15:56 | CTR_ITS ---
PROCEDURE INFORMATION: Exam: CT Lumbar Spine Without Contrast Exam date and time: 12/18/2021 4:34 PM Age: 66 years old Clinical indication: Low back pain; Prior surgery; Additional info: Low back pain 1 week, spasming TECHNIQUE: Imaging protocol: Computed tomography of the lumbar spine without contrast. Radiation optimization: All CT scans at this facility use at least one of these dose optimization techniques: automated exposure control; mA and/or kV adjustment per patient size (includes targeted exams where dose is matched to clinical indication); or iterative reconstruction. COMPARISON: 1. CR XR lumbar spine 2-3V* [id number] 11/17/2019 2:[address] abdomen pelvis wo con [id number] 02/10/2021 8:17 AM RADIATION DOSE METRICS: Total DLP (mGy-cm): 2126.04 FINDINGS: Bones/joints: Spinal alignment is normal. Vertebral body height is maintained. There is a large Schmorl's node at the superior endplate of L4 to the left of midline. The visible portion of the pelvis and sacrum is intact. No acute fracture. Discs/Spinal canal/Neural foramina: There is multifactorial moderate spinal stenosis at L4-5. There is a large left central disc protrusion at L3-4 producing severe spinal stenosis. Vasculature: There is moderate aortic atherosclerotic disease. Soft tissues: Paraspinal soft tissues are unremarkable. CT/CT lumbar spine wo con* [id number] IMPRESSION: 1. Large superior endplate Schmorl's node and associated disc herniation with severe spinal stenosis at L3-4 is progressive since 02/10/2021. 2. No acute fracture.
[2021-12-18] MEDS: diazePAM 5 mg Tablet PO (16:13)
[2021-12-18] MEDS: acetaminophen 1,000 MG/100 ML PIGGYBACK 400 MG IV (16:13)
[2021-12-18] MEDS: ketorolac 30 mg/mL INJ 15 MG IVP (16:13)
[2021-12-18 17:56] LABS: Protein Urine 1+ (Negative); Specific Gravity, Urine 1.015 (1.005-1.030); Urine Appearance SL Hazy (CLEAR); Urine Color Straw (Yellow); pH Urine 5 (5-7)
[2021-12-18 17:57] LABS: Add Urine Culture? No; Add Urine Microscopic? YES; Bacteria Urine 1+ /hpf; Bilirubin Urine Neg (Negative); Blood Urine 2+ (Negative); Glucose Urine UA Trace (Normal); Ketones Urine Negative (Negative); Leukocyte Esterase Urine Negative (Negative); Nitrate Urine Negative (Negative); RBC Urine RARE /hpf (0-2); Urobilinogen Urine Norm (Negative); WBC Urine 0-4 /hpf (0-5)
[2021-12-18 18:46] VITALS: BP 145/83; PULSE 67; RESP 14; O2SAT 97
--- NOTE | 2021-12-18 20:24 | PC.NURSE ---
received report. patient presents with left lower back pain. Has been gradually getting worse over last week to the point difficult to bear weight. CT scan lumbar shows severe stenosis L3-L4, no acute fx. attempted to ambulate patient with attendants x2. took 3 steps forward with increased pain however when she stepped backwards to sit back on bed did not have as much pain. pain is focused to left lower back with radiation down left leg.
[2021-12-18 20:35] VITALS: RESP 18
[2021-12-18] MEDS: oxyCODONE 5 mg IR Tab/Cap PO (20:35)
[2021-12-18 20:36] VITALS: BP 134/87; PULSE 76; RESP 18; O2SAT 96
[2021-12-18 21:10] VITALS: PULSE 75; RESP 18; O2SAT 98
== END 2021-12-18 21:11 | disposition home or self-care (01) ==
PROVIDERS: Emergency Provider Emergency Medicine; PCP Family Medicine
DX: M48.061 Spinal stenosis, lumbar region without neurogenic claudication (principal); M54.16 Radiculopathy, lumbar region; Z79.4 Long term (current) use of insulin; I25.10 Atherosclerotic heart disease of native coronary artery without angina pectoris; E11.9 Type 2 diabetes mellitus without complications; I10 Essential (primary) hypertension; E78.5 Hyperlipidemia, unspecified
CPT/HCPCS: 72131; 81001; 96374; 96375; 99284; J1885; J2930

== ENCOUNTER → 2022-01-27 08:21 | Outpatient (BNVA) | payer MEDICARE, MEDICAID, SELFPAY | PROVIDERS: PCP Family Medicine; Visit Provider Family Medicine | DX: E11.9 Type 2 diabetes mellitus without complications (principal); Z51.81 Encounter for therapeutic drug level monitoring; E53.8 Deficiency of other specified B group vitamins; R19.7 Diarrhea, unspecified; I48.91 Unspecified atrial fibrillation | CPT/HCPCS: 80053; 82607; 83036; 85025 ==

== ENCOUNTER 2022-05-11 03:10 | Inpatient (IN) | payer MEDICARE, MEDICAID, SELFPAY ==
[2022-05-11] VITALS (15 sets, daily range): BP systolic 123–178; BP diastolic 70–93; PULSE 83–101; RESP 16–24; TEMP 37.2–38.3; O2SAT 89–95; BMI 56.5
--- NOTE | 2022-05-11 03:16 | ECG_ITS ---
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 Measurements Intervals [place] Rate: 86 P: 45 OH: 252 QRS: 22 QRSD: 108 T: 53 QT: 372 QTc: 446 Interpretive Statements SINUS RHYTHM WITH FIRST DEGREE AV BLOCK LOW QRS VOLTAGE IN PRECORDIAL LEADS [QRS DEFLECTION < 1.0 mV IN CHEST LEADS] MINIMAL ST DEPRESSION [0.025+ mV ST DEPRESSION] Compared to ECG 08/23/2021 13:20:52 First degree AV block now present Low QRS voltage now present Atrial fibrillation no longer present Indeterminate axis no longer present Intraventricular conduction delay no longer present ST (T wave) deviation still present Electronically Signed On 05-11-2022 12:38:38 NECK BAND OPERATOR by Sherman Champan M.D. [id number]
--- NOTE | 2022-05-11 03:17 | XRR_ITS ---
PROCEDURE INFORMATION: Exam: XR Chest Exam date and time: 05/11/2022 4:19 AM Age: 66 years old Clinical indication: Fever and shortness of breath; Prior surgery; Surgery type: Cardiac stents; Patient HX: C/O SOB with fever TECHNIQUE: Imaging protocol: Radiologic exam of the chest. Views: 1 view. COMPARISON: CR XR chest 1V portable [id number] 08/23/2021 1:08 PM FINDINGS: Lungs: Mild left perihilar pneumonia. Pleural spaces: Unremarkable. No pleural effusion. No pneumothorax. Heart/Mediastinum: Unremarkable. No cardiomegaly. Bones/joints: Moderate thoracic spondylosis. Other findings: Patient rotation to the left. XR/XR chest 1V portable [id number] IMPRESSION: Mild left perihilar pneumonia.
--- NOTE | 2022-05-11 03:17 | W.ED.SOB ---
HPI - SOB/Dyspnea General: Chief Complaint: Shortness of Breath/Dyspnea Stated Complaint: SOB Time Seen by Provider: 05/11/22 03:10 Source: patient and EMS Mode of arrival: EMS Limitations: no limitations History of Present Illness: HPI Narrative: 66-year-old female who states that over the last 2 to 3 days she has been having increased cough along with some body aches and nausea. She has a history of pulmonary fibrosis is on 3 L of oxygen at baseline. Patient is 92% here on her 3 L. She states that tonight her cough is worsened and had worsening shortness of breath. She denies any worsening improving factors. She has not vomited but states she feels extremely nauseous. She states she has been in contact with people with the flu. Associated symptoms: Reports nausea; Deny chest pain Review of Systems Const: Reports: chills and body aches Eyes: Denies: blurry vision or eye discomfort ENMT: Denies: throat pain or dental pain Card: Denies: chest pain Resp: Reports: dyspnea and non-productive cough GI: Reports: nausea : Denies: dysuria Musc: Denies: neck pain or back pain Skin/Breast: Denies: rash Neuro: Denies: headache(s) Psych: Denies: depression David/Lymph: Denies: easy bruising All/Imm: Denies: urticaria PFSH ED PFSH: Medical History Amiodarone pulmonary toxicity Atrial fibrillation CAD (coronary artery disease) Last echocardiogram 08/06 with EF of 50% Chronic pain She reports taking pain medicines and muscle relaxers for a recent back injury; she has chronic left leg pain. Chronic respiratory failure CKD (chronic kidney disease) Depression Diabetes mellitus Fibromyalgia Gout HTN (hypertension) Hypercholesteremia Hyperlipidemia Hypothyroidism Major depressive disorder, recurrent severe without psychotic features Psychiatric care Surgical History H/O cardiac radiofrequency ablation H/O section H/O eye surgery H/O left knee surgery History of back surgery History of carpal tunnel release History of coronary artery stent placement History of hysterectomy partial History of incision and drainage Right breast abscess Hx of cholecystectomy Family History Mother Cancer breast Stroke Brother Heart disease Asthma Cancer prostate Sister Heart disease Social History Smoking and tobacco status: never smoked Alcohol intake: never Housing: Other Details: Currently with her family Physical Exam Const: COMMON NORMALS: patient oriented x3 HENMT: COMMON NORMALS: normocephalic and atraumatic HEAD & SCALP: normocephalic and atraumatic Eye: COMMON NORMALS: Equal, round and reactive pupils present and EOMs intact bilaterally PUPIL: Yes Equal, round and reactive pupils present Neck/C-Spine: COMMON NORMALS: full ROM and supple Chest: COMMONS NORMALS: normal inspection of the chest and normal palpation of entire chest wall Resp: COMMON NORMALS: No retractions and No use of accessory muscles EFFORT & INSPECTION: Yes tachypneic and Yes respiratory distress AUSCULTATION: rales Cardio: COMMON NORMALS: regular rate, regular rhythm and No murmurs present (Cardio) RATE: regular rate RHYTHM: regular rhythm GI: COMMON NORMALS: Normal to inspection, nondistended, normoactive bowel sounds present, Soft to palpation, non-tender and no masses PALPATION: Yes Soft to palpation Extremity: COMMON NORMALS: normal to inspection and full ROM Neuro: COMMON NORMALS: patient oriented x3, moves all extremities and no focal motor deficits Psych: COMMON NORMALS: mental status grossly normal, Normal thought process present and cooperative THOUGHT PROCESS: Normal thought process present Skin: COMMON NORMALS: no rashes or lesions noted and no wounds GENERAL SKIN EXAM: no rashes or lesions noted Course Vital Signs: Vital signs: Vital Signs Temperature 98.9 F 05/11/22 03:11 Pulse Rate 87 05/11/22 04:21 Respiratory Rate 16 05/11/22 04:21 Blood Pressure 137/88 05/11/22 04:21 Pulse Oximetry 93 05/11/22 04:21 Oxygen Delivery Me thod 05/11/22 03:11 Oxygen Flow Rate 4 05/11/22 03:11 MDM - SOB/Dyspnea Medical Decision Making Patient presents here with cough shortness of breath did test positive for influenza A. X-ray does show a pneumonia she is requiring 4 to 5 L oxygen here currently spoke to the hospitalist will admit. Lab Data 05/11/22 03:30 05/11/22 03:30 Labs/Radiology: Laboratory Results WBC 9.0 10^3/uL (4.0-10.0) 05/11/22 03:30 RBC 4.80 10^6/uL (4.1-5.3) 05/11/22 03:30 Hgb 13.9 g/dL (11.5-15.3) 05/11/22 03:30 Hct 43.5 % (37.0-47.0) 05/11/22 03:30 MCV 90.6 fl (81-99) 05/11/22 03:30 MCH 29.0 pg (28.0-34.0) 05/11/22 03:30 MCHC 32.0 g/dL (30.0-36.0) 05/11/22 03:30 RDW 15.5 % (12.1-15.1) H 05/11/22 03:30 Plt Count 211 10^3/cmm (130-400) 05/11/22 03:30 MPV 10.8 fL (7.4-10.4) H 05/11/22 03:30 Neut % (Auto) 73.8 % 05/11/22 03:30 Lymph % (Auto) 14.0 % 05/11/22 03:30 [place] % (Auto) 9.7 % 05/11/22 03:30 Eos % (Auto) 1.9 % 05/11/22 03:30 Baso % (Auto) 0.3 % 05/11/22 03:30 Neut # (Auto) 6.61 10^3/uL (1.8-7.7) 05/11/22 03:30 Lymph # (Auto) 1.3 10^3/uL (0.8-4.8) 05/11/22 03:30 [place]pson # (Auto) 0.9 10^3/uL (0.2-0.9) 05/11/22 03:30 Eos # (Auto) 0.2 10^3/uL (0.0-0.8) 05/11/22 03:30 Baso # (Auto) 0.0 10^3/uL (0.0-0.1) 05/11/22 03:30 Nucleated RBC % (auto) 0 % 05/11/22 03:30 Nucleated RBCs # 0.0 /100WBC 05/11/22 03:30 PT 15.30 SECONDS (12.1-14.9) H 05/11/22 03:30 INR 1.17 (0.8-1.2) 05/11/22 03:30 Sodium 140 mmol/L (136-145) 05/11/22 03:30 Potassium 3.4 mmol/L (3.5-5.1) L 05/11/22 03:30 Chloride 98 mmol/L (98-107) 05/11/22 03:30 Carbon Dioxide 32 mmol/L (22-29) H 05/11/22 03:30 Anion Gap 13.4 (5-19) 05/11/22 03:30 BUN 22 mg/dL (8-23) 05/11/22 03:30 Creatinine 1.5 mg/dL (0.5-0.9) H 05/11/22 03:30 GFR Calculation 34.6 mL/min (90-130) L 05/11/22 03:30 Glucose 123 mg/dL (65-115) H 05/11/22 03:30 Calculated Osmolality 295 mOsm/kg (285-295) 05/11/22 03:30 Calcium 8.7 mg/dL (8.5-10.5) 05/11/22 03:30 Total Bilirubin 0.4 mg/dL (0.15-1.2) 05/11/22 03:30 AST 20 U/L (0-32) 05/11/22 03:30 ALT 18 U/L (0-33) 05/11/22 03:30 Alkaline Phosphatase 96 U/L (35-105) 05/11/22 03:30 NT-Pro-B Natriuret Pep 927 pg/mL (0-125) H 05/11/22 03:30 Total Protein 6.5 g/dL (6.6-8.7) L 05/11/22 03:30 Albumin 3.5 g/dL (3.5-5.2) 05/11/22 03:30 Globulin 3.0 g/dL (1.3-4.6) 05/11/22 03:30 Influenza Type A Ag positive (Negative) 05/11/22 03:27 Influenza Type B Ag negative (Negative) 05/11/22 03:27 SARS-CoV-2 Ag (Rapid) negative (Negative) 05/11/22 03:27 EKG Data EKG 1: I personally reviewed and interpreted this EKG as follows: EKG Interpretation Date: 05/11/22 EKG interpretation time: 03:21 Interpretation: nsr hr [address] or t wave abnormalities qrs 108 qtc 415 Discharge Plan Discharge Patient Disposition: Admitted As Inpatient Clinical Impression: Community acquired pneumonia, Influenza A Condition: Stable Prescriptions: No Action apixaban 5 mg tablet 5 mg PO BID nitroglycerin 0.4 mg tablet, sublingual 0.4 mg SUBLINGUAL Q5M PRN (Reason: Chest Pain) simvastatin 80 mg tablet 40 mg PO DAILY Rx Instructions: DOSE CHANGE albuterol sulfate [ProAir HFA] 90 mcg/actuation HFA aerosol inhaler 2 puff INHALATION Q6H PRN (Reason: Shortness Of Breath) levothyroxine 50 mcg capsule 50 mcg PO DAILY Trulicity 0.75 mg/0.5 mL pen injector 0.75 mg SUBCUT .once a week Qty: 2 6RF Lantus U-100 Insulin 100 unit/mL solution 90 unit SUBCUT BID Qty: 80 6RF (DME) FreeStyle Lou 14 Day Sensor Kit See Rx Instructions .Route Qty: 1 0RF Rx Instructions: As directed metoprolol tartrate 100 mg tablet 100 mg PO BID Qty: 60 6RF (DME) FreeStyle Lou 14 Day Sensor Kit See Rx Instructions .Route Qty: 1 0RF Rx Instructions: As directed duloxetine 30 mg capsule,delayed release(DR/EC) 30 mg PO DAILY Qty: 30 1RF Rx Instructions: Take one capsule by mouth every early afternoon duloxetine 60 mg capsule,delayed release(DR/EC) 60 mg PO .q am Qty: 30 1RF Rx Instructions: Take one capsule by mouth every morning buspirone 10 mg tablet 10 mg PO TID Qty: 90 1RF Rx Instructions: Take 1 tablet by mouth every morning, afternoon, and evening lorazepam 0.5 mg tablet 0.5 mg PO BID PRN (Reason: anxiety) Qty: 60 1RF Rx Instructions: Take 1 tablet once or twice daily, if needed for anxiety diltiazem HCl 120 mg capsule,extended release 24hr 120 mg PO DAILY Qty: 90 0RF furosemide 40 mg tablet 120 mg PO BID PRN (Reason: edema) Qty: 180 2RF cyclobenzaprine 10 mg tablet 10 mg PO TID PRN (Reason: muscle spasm) Qty: 30 2RF cyanocobalamin (vitamin B-12) [Vitamin B-12] 1,000 mcg tablet 1,000 mcg PO DAILY Qty: 30 6RF allopurinol 300 mg tablet 300 mg PO DAILY Qty: 90 3RF hydrocodone-acetaminophen 5-325 mg tablet 1 - 2 tab PO Q8H PRN (Reason: Pain) 30 Days Qty: 60 0RF pregabalin 50 mg capsule 50 mg PO BID Qty: 60 2RF potassium chloride 10 mEq capsule, extended release 20 meq PO TID Qty: 0 0RF Label Comments: dose increase from 10mEq daily to 20 mEq BID per patient report 04/18/21 celecoxib 100 mg capsule 100 mg PO BID Qty: 30 0RF oxycodone 5 mg tablet 5 mg PO Q6H PRN (Reason: pain) Qty: 8 0RF Referrals: Farhat Acosta MD [Primary Care Provider] - Coding Level of Care Code ED Conditioning Yard Supervisor for Chg Fwd Exam Comprehensive
[2022-05-11] MEDS: sodium chloride 0.9% 1,000 ML 999 ML IV (03:37)
[2022-05-11 03:38] LABS: Basophils % 0.3 %; Eosinophils # 0.2 10^3/uL (0.0-0.8); Eosinophils % 1.9 %; Hematocrit 43.5 % (37.0-47.0); Hemoglobin 13.9 g/dL (11.5-15.3); Lymphocytes # 1.3 10^3/uL (0.8-4.8); Mean Corpuscular Volume 90.6 fl (81-99); Mean Platelet Volume 10.8 fL (7.4-10.4); Monocytes # 0.9 10^3/uL (0.2-0.9); Monocytes % 9.7 %; Neutrophils # 6.61 10^3/uL (1.8-7.7); Neutrophils % 73.8 %; Nucleated Red Blood Cells % 0 %; Platelet Count 211 10^3/cmm (130-400); Red Cell Distribution Width 15.5 % (12.1-15.1)
[2022-05-11 03:39] LABS: Influenza A by IFA positive (Negative); Influenza B by IFA negative (Negative)
[2022-05-11 03:51] LABS: SARS Covid-2 Antigen negative (Negative)
[2022-05-11 03:56] LABS: INR 1.17 (0.8-1.2)
[2022-05-11 04:16] LABS: Alanine Aminotransferase 18 U/L (0-33); Albumin Level 3.5 g/dL (3.5-5.2); Alkaline Phosphatase 96 U/L (35-105); Anion Gap 13.4 (5-19); Aspartate Amino Transferase 20 U/L (0-32); Blood Urea Nitrogen 22 mg/dL (8-23); Calcium 8.7 mg/dL (8.5-10.5); Carbon Dioxide 32 mmol/L (22-29); Chloride 98 mmol/L (98-107); Glomerular Filtration Rate 34.6 mL/min (90-130); Glucose 123 mg/dL (65-115); NT Pro B Type Natriuretic Pept 927 pg/mL (0-125); Osmolality Calculated 295 mOsm/kg (285-295); Potassium 3.4 mmol/L (3.5-5.1); Sodium 140 mmol/L (136-145); Total Bilirubin 0.4 mg/dL (0.15-1.2); Total Protein 6.5 g/dL (6.6-8.7)
[2022-05-11] MEDS: oseltamivir phosphate 75 mg Capsule PO (04:20)
[2022-05-11] MEDS: cefTRIAXone 1,000 MG in sodium chloride 0.9% (plus) 50 ML 100 MG IV ×2 (04:23→10:29)
[2022-05-11] MEDS: ipratropium-albuterol 3 mL Neb INHALATION ×3 (04:35→20:46)
[2022-05-11] MEDS: ondansetron 2 mg/ML SDV 2 mL 4 MG IVP ×2 (04:59→23:55)
[2022-05-11] MEDS: azithromycin 500 MG in sodium chloride 0.9% 250 ML 250 MG IV (04:59)
--- NOTE | 2022-05-11 06:10 | PC.NURSE ---
ADMIT NOTE Pt received to floor from ER at 0545. Is alert and oriented. Says she has been sick for a couple of days with increasing SOB, nausea, and body aches above her normal fibromyalgia ones . Denies any vomiting or diarrhea. c/o generalized weakness. Did ambulate to bathroom on arrival to room. O2 at 4l per NC and says is on 3l at baseline. PIID intact to right wrist/forearm. Received antibiotics and Tamiflu in the ER. On flu droplet precautions.
--- NOTE | 2022-05-11 06:55 | PC.NURSE ---
Patient is asking for something for a headache. Dr. Quinteros notified.
--- NOTE | 2022-05-11 06:59 | PM.HP ---
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 Patient's symptoms started roughly 3 to 4 days ago, she has been noticing generalized weakness, body aches and nausea. Worsening of her cough and shortness of breath prompted the visit to the ER. She is endorsing nonproductive cough and pleuritic chest pain. She also noticed fever 100.0 at home. In the ER she was diagnosed with influenza A pneumonia and superimposed bacterial pneumonia, she is requiring 4 L of oxygen, no sign of sepsis. She does have a history of A. fib, currently heart rate is well controlled She takes Eliquis COVID antigen negative Review of Systems Const: Reports: chills, body aches and fatigue Eyes: Denies: change in vision ENMT: Denies: throat pain Card: Denies: chest pain Resp: Reports: dyspnea GI: Reports: nausea : Denies: flank pain Musc: Reports: muscle cramps Skin/Breast: Denies: rash Neuro: Denies: headache(s) Psych: Reports: anxiety Endo: Denies: polyuria David/Lymph: Denies: easy bruising All/Imm: Denies: urticaria Medications/Allergies Home Medications Medication Instructions Recorded Confirmed Last Taken Type albuterol sulfate 90 mcg/actuation 2 puff inhalation Q6H PRN 06/30/19 05/11/22 1 Day Ago History aerosol inhaler (ProAir HFA) Shortness Of Breath ~05/10/22 apixaban 5 mg tablet 5 mg PO BID 06/30/19 05/11/22 1 Day Ago History ~05/10/22 nitroglycerin 0.4 mg sublingual 0.4 mg sublingual Q5M PRN Chest 06/30/19 05/11/22 Unknown History tablet Pain simvastatin 80 mg tablet 40 mg PO DAILY 06/30/19 05/11/22 1 Day Ago History ~05/10/22 levothyroxine 50 mcg capsule 50 mcg PO DAILY 09/19/19 05/11/22 1 Day Ago History ~05/10/22 diltiazem HCl 120 mg 120 mg PO DAILY #90 caps 09/27/20 05/11/22 1 Day Ago Rx capsule,extended release 24 hr ~05/10/22 potassium chloride 10 mEq 20 meq PO TID #0 caps 08/23/21 05/11/22 1 Day Ago Rx capsule,extended release ~05/10/22 celecoxib 100 mg capsule 100 mg PO BID #30 caps 12/13/21 05/11/22 1 Day Ago Rx ~05/10/22 oxycodone 5 mg tablet 5 mg PO Q6H PRN pain #8 tabs 12/18/21 05/11/22 12/23/21 Rx cyclobenzaprine 10 mg tablet 10 mg PO TID PRN muscle spasm #30 01/23/22 05/11/22 Unknown Rx tabs flash glucose sensor (FreeStyle #1 ea 01/27/22 04/24/22 Unknown Rx Lou 14 Day Sensor kit) metoprolol tartrate 100 mg tablet 100 mg PO BID #60 tabs 01/27/22 05/11/22 1 Day Ago Rx ~05/10/22 flash glucose sensor (FreeStyle #1 ea 02/03/22 04/24/22 Unknown Rx Lou 14 Day Sensor kit) cyanocobalamin (vitamin B-12) 1,000 mcg PO DAILY #30 tabs 02/05/22 05/11/22 1 Day Ago Rx 1,000 mcg tablet (Vitamin B-12) ~05/10/22 allopurinol 300 mg tablet 300 mg PO DAILY #90 tabs 02/27/22 05/11/22 1 Day Ago Rx ~05/10/22 dulaglutide 0.75 mg/0.5 mL 0.75 mg (0.5 mL) SUBCUT .once a 03/07/22 05/11/22 05/08/22 Rx subcutaneous pen injector week #2 mL (Trulicity) insulin glargine 100 unit/mL 90 unit (0.9 mL) SUBCUT BID #80 mL 03/07/22 05/11/22 1 Day Ago Rx subcutaneous solution (Lantus ~05/10/22 U-100 Insulin) pregabalin 50 mg capsule 50 mg PO BID #60 caps 03/21/22 05/11/22 1 Day Ago Rx ~05/10/22 buspirone 10 mg tablet 10 mg PO TID #90 tabs 04/24/22 05/11/22 1 Day Ago Rx ~05/10/22 duloxetine 60 mg capsule,delayed 60 mg PO .q am #30 caps 04/24/22 05/11/22 1 Day Ago Rx release ~05/10/22 lorazepam 0.5 mg tablet 0.5 mg PO BID PRN anxiety #60 tabs 04/27/22 05/11/22 1 Day Ago Rx ~05/10/22 duloxetine 30 mg capsule,delayed 30 mg PO BEDTIME 05/11/22 05/11/22 1 Day Ago History release ~05/10/22 furosemide 40 mg tablet 120 mg PO BID 05/11/22 05/11/22 1 Day Ago History ~05/10/22 Allergies Allergy/AdvReac Type Severity Reaction Status Date / Time morphine Allergy Severe Quit Verified 04/24/22 15:30 breathing amiodarone Allergy ALGY-Anaphy Verified 04/24/22 15:30 laxis shellfish derived AdvReac Severe Hives & Verified 04/24/22 15:30 throat swells meperidine [From Demerol] AdvReac Intermediate Made N & V Verified 04/24/22 15:30 Penicillins AdvReac Intermediate RAsh Verified 04/24/22 15:30 PFSH Acute PFSH: Medical History Amiodarone pulmonary toxicity Atrial fibrillation CAD (coronary artery disease) Last echocardiogram 08/06 with EF of 50% Chronic pain She reports taking pain medicines and muscle relaxers for a recent back injury; she has chronic left leg pain. Chronic respiratory failure CKD (chronic kidney disease) Depression Diabetes mellitus Fibromyalgia Gout HTN (hypertension) Hypercholesteremia Hyperlipidemia Hypothyroidism Major depressive disorder, recurrent severe without psychotic features Psychiatric care Surgical History H/O cardiac radiofrequency ablation H/O section H/O eye surgery H/O left knee surgery History of back surgery History of carpal tunnel release History of coronary artery stent placement History of hysterectomy partial History of incision and drainage Right breast abscess Hx of cholecystectomy Family History Mother Cancer breast Stroke Brother Heart disease Asthma Cancer prostate Sister Heart disease Social History Smoking and tobacco status: never smoked Alcohol intake: never Housing: Other Details: Currently with her family Vitals/I&O/Wt Last Vital Signs Temp 101 F H 05/11/22 06:43 Pulse 96 05/11/22 06:43 Resp 18 05/11/22 06:43 BP 149/80 05/11/22 06:43 Pulse Ox 90 05/11/22 06:43 O2 Del Method 05/11/22 06:43 O2 Flow Rate 4 05/11/22 06:43 05/10/22 05/10/22 05/11/22 14:59 22:59 06:59 Intake Total 1300 / 1300 Balance 1300 / 1300 Weight last 48 hrs Weight 168.736 kg Physical Exam Narrative: Pleasant cooperative female Currently on 4 L Bilateral breath sounds with mild rhonchi and rails Nontender abdomen Pleasant and cooperative Nonfocal neuro exam EOMI, PERRLA S1, S2 variable Hemodynamically stable Appropriate mood and affect Data 05/11/22 03:30 05/11/22 03:30 Micro: Microbiology 05/11/22 03:59 Blood Culture - Preliminary Blood SPECIMEN COLLECTED 05/11/22 03:45 Blood Culture - Preliminary Blood SPECIMEN COLLECTED A&P Assessment and plan (1) Community acquired pneumonia: (2) Influenza A: (3) Vitamin B12 deficiency: (4) Diabetes type 2, uncontrolled: (5) Amiodarone pulmonary toxicity: (6) Atrial fibrillation: Qualifiers: Atrial fibrillation type: unspecified Qualified Code(s): I48.91 - Unspecified atrial fibrillation (7) CKD (chronic kidney disease): Plan Influenza a with superimposed bacterial pneumonia I will start her on ceftriaxone and doxycycline Respiratory to assess and treat Currently she is doing well on 4 L At home uses 3 L of oxygen, continue DuoNeb treatment A. fib without RVR Continue anticoagulating agent and AV ahmet blocking agents Type 2 diabetes, continue Lantus twice daily and sliding scale Chronic kidney disease creatinine seems around baseline no acute worsening Full code Cardiac diet Attestations Medical Necessity Statement*: Anticipating discharge within 48 hours Time Spent in Patient Care: 40 Coding Level of Care Code Acute Datapower Developer for [facility] Fwd Diagnoses Community acquired pneumonia J18.9 Influenza A J10.1 Vitamin B12 deficiency E53.8 Diabetes type 2, uncontrolled Amiodarone pulmonary toxicity J98.4; T46.2X5A Atrial fibrillation I48.91 Atrial fibrillation type: unspecified CKD (chronic kidney disease) N18.9
[2022-05-11] MEDS: acetaminophen 325 mg Tablet 650 MG PO (07:30)
[2022-05-11] MEDS: duloxetine 60 mg Capsule PO (07:33)
[2022-05-11 07:37] LABS: Procalcitonin 0.13 ng/mL (0-0.5)
--- NOTE | 2022-05-11 08:57 | PC.PHAR ---
pt states she has a nurse that sets up her meds pt states she is unsure what company the nurse works for-pt states she gives herself her insulin and knows some of her meds-medications entered are meds the pt states she takes and what ext med history shows has been filled recently-pharmacy closed on no way to verify if ext shows all meds filled recently
[2022-05-11] MEDS: doxycycline 100 mg Tablet PO ×2 (10:15→18:14)
[2022-05-11] MEDS: metoprolol tartrate 50 mg Tablet 100 MG PO ×2 (10:16→18:14)
[2022-05-11] MEDS: potassium chloride ER 20 mEq Tablet PO ×2 (10:16→18:14)
[2022-05-11] MEDS: apixaban 5 mg Tablet PO ×2 (10:17→18:14)
[2022-05-11] MEDS: dilTIAZem ER (24HR) 120 mg Capsule PO (10:17)
[2022-05-11] MEDS: FUROsemide 40 mg Tablet 60 MG PO (10:22)
[2022-05-11] MEDS: levothyroxine 50 mcg Tablet PO (10:22)
[2022-05-11] MEDS: allopurinol 300 mg Tablet PO (10:24)
[2022-05-11] MEDS: pregabalin 50 mg Capsule PO ×2 (10:29→18:13)
[2022-05-11] MEDS: insulin glargine 100 units/1 mL 60 UNIT SUBCUT ×2 (10:31→18:15)
[2022-05-11 10:39] LABS: Glucose Point of Care 133 mg/dL (70-110)
[2022-05-11 12:19] LABS: Glucose Point of Care 154 mg/dL (70-110)
[2022-05-11] MEDS: insulin lispro 100 unit/1 mL SUBCUT (13:06)
--- NOTE | 2022-05-11 14:00 | P.PN_ITS ---
Subjective Subjective: Does not feel better at all today. Still having cough. Not producing phlegm. Some nausea. Vitals/I&O/Wt Last Vital Signs Temp 99.6 F 05/11/22 12:00 Pulse 88 05/11/22 13:14 Resp 22 H 05/11/22 13:14 BP 126/72 05/11/22 12:00 Pulse Ox 93 05/11/22 13:14 O2 Del Method 05/11/22 13:14 O2 Flow Rate 4 05/11/22 13:14 05/10/22 05/11/22 05/11/22 22:59 06:59 14:59 Intake Total 1300 / 1300 260 / 260 Balance 1300 / 1300 260 / 260 Weight last 48 hrs Weight 168.736 kg Physical Exam Const: COMMON NORMALS: patient oriented x3 and alert GENERAL APPEARANCE: cooperative ORIENTATION/CONSCIOUSNESS: Yes awake HENMT: COMMON NORMALS: oropharynx normal Neck/C-Spine: COMMON NORMALS: no JVD Resp: COMMON NORMALS: normal respiratory effort and clear to auscultation bilaterally AUSCULTATION: clear to auscultation bilaterally Cardio: COMMON NORMALS: no JVD, regular rhythm, S1 normal heart sound present, S2 normal heart sound present and No murmurs present (Cardio) RHYTHM: regular rhythm HEART SOUNDS: S1 normal heart sound present and S2 normal heart sound present GI: COMMON NORMALS: Normal to inspection, nondistended, normoactive bowel sounds present, Soft to palpation and non-tender PALPATION: Yes Soft to palpation Extremity: COMMON NORMALS: no joint enlargement and no pedal edema Neuro: COMMON NORMALS: patient oriented x3 and moves all extremities SENSORIUM/ORIENTATION: Yes alert Skin: COMMON NORMALS: no rashes or lesions noted GENERAL SKIN EXAM: no rashes or lesions noted Data 05/11/22 03:30 05/11/22 03:30 Micro: Microbiology 05/11/22 03:59 Blood Culture - Preliminary Blood SPECIMEN COLLECTED 05/11/22 03:45 Blood Culture - Preliminary Blood SPECIMEN COLLECTED A&P Assessment and plan (1) Community acquired pneumonia: Continue ceftriaxone, azithromycin. Continue oxygen support. Wean down as tolerating. She is not feeling any better today. We will continue observation for now due to high risk of deterioration with influenza A infection, superimposed bacterial pneumonia lady with current disease currently with worsening renal function in addition comorbidities with. (2) Influenza A: Unfortunately Tamiflu not available. (3) CKD (chronic kidney disease): GEOR[place]ES on CKD, creatinine up to 1.8. Currently does not appear volume overloaded. Hold diuretics for now. Reassess renal function, volume status. (4) Vitamin B12 deficiency: (5) Diabetes type 2, uncontrolled: Continue Lantus, SSI, CC diet (6) Amiodarone pulmonary toxicity: (7) Atrial fibrillation: Qualifiers: Atrial fibrillation type: unspecified Qualified Code(s): I48.91 - Unspecified atrial fibrillation Plan A. fib without RVR Continue anticoagulating agent and AV ahmet blocking agents CAD Chronic pain Chronic respiratory failure Depression Fibromyalgia Called Patient initially Hypothyroidism MDD Other comorbidities Full code Cardiac diet Attestations Medical Necessity Statement*: Continue observation for now due to high risk of deterioration with influenza A infection, superimposed bacterial pneumonia lady with current disease currently with worsening renal function, diabetes and additional comorbidities as above. Coding Level of Care Code Acute Wafer Mounter for [facility] Diagnoses Community acquired pneumonia J18.9 Influenza A J10.1 CKD (chronic kidney disease) N18.9 Vitamin B12 deficiency E53.8 Diabetes type 2, uncontrolled Amiodarone pulmonary toxicity J98.4; T46.2X5A Atrial fibrillation I48.91 Atrial fibrillation type: unspecified
[2022-05-11] MEDS: acetaminophen 500 mg Tablet PO (15:51)
[2022-05-11 16:38] LABS: Glucose Point of Care 135 mg/dL (70-110)
[2022-05-11 16:38] LABS: Glucose Point of Care 146 mg/dL (70-110)
[2022-05-11] MEDS: duloxetine 30 mg Capsule PO (20:34)
[2022-05-11 20:40] LABS: Glucose Point of Care 240 mg/dL (70-110)
[2022-05-12] VITALS (9 sets, daily range): BP systolic 122–165; BP diastolic 72–83; PULSE 75–96; RESP 18–21; TEMP 37.3–38.6; O2SAT 83–97
[2022-05-12 03:50] LABS: Basophils % 0.3 %; Eosinophils # 0.1 10^3/uL (0.0-0.8); Eosinophils % 0.8 %; Hematocrit 40.8 % (37.0-47.0); Hemoglobin 12.7 g/dL (11.5-15.3); Lymphocytes % 16.9 %; Mean Corpuscular HGB Conc 31.1 g/dL (30.0-36.0); Mean Corpuscular Hemoglobin 28.3 pg (28.0-34.0); Mean Corpuscular Volume 90.9 fl (81-99); Mean Platelet Volume 11.2 fL (7.4-10.4); Monocytes # 0.9 10^3/uL (0.2-0.9); Monocytes % 7.6 %; Neutrophils # 8.86 10^3/uL (1.8-7.7); Neutrophils % 73.9 %; Nucleated Red Blood Cells % 0 %; Platelet Count 207 10^3/cmm (130-400); Red Blood Count 4.49 10^6/uL (4.1-5.3); Red Cell Distribution Width 15.5 % (12.1-15.1)
[2022-05-12 04:08] LABS: Anion Gap 11.5 (5-19); Blood Urea Nitrogen 23 mg/dL (8-23); C Reactive Protein 263.2 mg/L (0.0-4.9); Calcium 8.5 mg/dL (8.5-10.5); Carbon Dioxide 31 mmol/L (22-29); Chloride 98 mmol/L (98-107); Glomerular Filtration Rate 32.2 mL/min (90-130); Glucose 103 mg/dL (65-115); Magnesium 1.6 mg/dL (1.7-2.3); Osmolality Calculated 288 mOsm/kg (285-295); Phosphorus 2.7 mg/dL (2.5-4.5); Potassium 3.5 mmol/L (3.5-5.1); Sodium 137 mmol/L (136-145)
[2022-05-12 06:47] LABS: Glucose Point of Care 67 mg/dL (70-110)
[2022-05-12] MEDS: duloxetine 60 mg Capsule PO (08:10)
[2022-05-12] MEDS: metoprolol tartrate 50 mg Tablet 100 MG PO ×2 (08:10→18:17)
[2022-05-12 08:11] LABS: Glucose Point of Care 87 mg/dL (70-110)
[2022-05-12] MEDS: pregabalin 50 mg Capsule PO ×2 (08:11→18:17)
[2022-05-12] MEDS: apixaban 5 mg Tablet PO ×2 (08:11→18:17)
[2022-05-12] MEDS: levothyroxine 50 mcg Tablet PO (08:11)
[2022-05-12] MEDS: potassium chloride ER 20 mEq Tablet PO ×2 (08:11→18:17)
[2022-05-12] MEDS: doxycycline 100 mg Tablet PO ×2 (08:11→18:17)
[2022-05-12] MEDS: dilTIAZem ER (24HR) 120 mg Capsule PO (08:11)
[2022-05-12] MEDS: allopurinol 300 mg Tablet PO (08:12)
[2022-05-12] MEDS: acetaminophen 500 mg Tablet PO ×2 (08:17→19:45)
[2022-05-12] MEDS: cefTRIAXone 1,000 MG in sodium chloride 0.9% (plus) 50 ML 100 MG IV (08:20)
[2022-05-12] MEDS: ipratropium-albuterol 3 mL Neb INHALATION ×2 (08:22→15:57)
[2022-05-12] MEDS: insulin glargine 100 units/1 mL 60 UNIT SUBCUT ×2 (08:37→18:17)
--- NOTE | 2022-05-12 09:50 | PC.CHAP ---
Pastoral Care Encounter/Spiritual Assessment Type of Contact [] Declined hide inspector visit [] Patient/Family/Request visit [] Outpatient visit [] Follow-up visit [] Physician referral [] Code/Alert [x] Routine visit [] Staff referral [] Actively dying [] Patient sleeping [] Family support [] [] Out of room [] Palliative care [] [x] Receiving care in room [] Pre-surgical visit [] Trauma [] Long length of stay [] ICU visit [] Other: Relational/Emotional Strength [] Patient feels connected with others/family/visitors/staff [] Distress [] Loneliness/isolation [] Abandonment Spirituality of Patient [] Person of [place] [] Attends Confucianism of their [place] [] Believes in Prayer [] Reads Bible or Yazidism materials [] There are Spiritual issues to be addressed Career Services Assistant Interventions [x] Prayer [] Active listening [] Non-anxious presence [] Spiritual/emotional support [] Crisis/trauma care [] Spiritual counseling [] Bereavement support [] Provided bereavement packet [] Provided Bible/devotional materials [] Provided toy/stuffed animal, coloring book to patient or family member [] Provided Communion [] Anointing/[place] [] Salvation [] Completed spiritual assessment [] Other: Impact on Illness or Injury [] Angry [] Fearful [] Anxious [] Often cries [] Exhaustion [] Unable to work [] Unable to attend sabianism [] Unable to walk/stand [] Unable to read [] Unable to drive [] Unable to eat/drink [] Unable to sleep [] Unable to be with family [] Patient intubated [] Other: Summary Time spent with patient
[2022-05-12] MEDS: magnesium sulfate premix 2 GM/50 ML PIGGYBACK IV (10:02)
[2022-05-12 11:08] LABS: Glucose Point of Care 168 mg/dL (70-110)
[2022-05-12] MEDS: insulin lispro 100 unit/1 mL SUBCUT ×2 (12:34→18:18)
[2022-05-12 16:49] LABS: Glucose Point of Care 225 mg/dL (70-110)
--- NOTE | 2022-05-12 17:46 | PM.PN ---
Subjective Subjective: Today overall she continues to gradually improve. She states that she is having trouble getting out from the recliner chair, at home she uses a lift chair. Her breathing has been getting gradually better. Malaise is improving. Plan was possible to return home today, however, on home O2 evaluation noted significantly desaturating down into the 80s with minimal exertion and nasal cannula for her to be increased to 6 L, and even with that it took a long time to recover oxygen saturation to 85%. Vitals/I&O/Wt Last Vital Signs Temp 99.4 F 05/12/22 15:19 Pulse 84 05/12/22 15:57 Resp 20 H 05/12/22 15:57 BP 144/83 05/12/22 15:19 Pulse Ox 94 05/12/22 15:57 O2 Del Method 05/12/22 15:57 O2 Flow Rate 4 05/12/22 15:57 05/12/22 05/12/22 05/12/22 06:59 14:59 22:59 Intake Total 580 / 580 Balance 580 / 580 Weight last 48 hrs Weight 168.736 kg Physical Exam Narrative: In recliner chair. Today does not appear to have malaise, constant, appears more energetic, and in better spirits. Const: COMMON NORMALS: patient oriented x3 and alert GENERAL APPEARANCE: cooperative NUTRITIONAL APPEARANCE: obese ORIENTATION/CONSCIOUSNESS: Yes awake HENMT: COMMON NORMALS: oropharynx normal Neck/C-Spine: COMMON NORMALS: no JVD Resp: COMMON NORMALS: normal respiratory effort and clear to auscultation bilaterally AUSCULTATION: clear to auscultation bilaterally Cardio: COMMON NORMALS: no JVD, regular rhythm, S1 normal heart sound present, S2 normal heart sound present and No murmurs present (Cardio) RHYTHM: regular rhythm HEART SOUNDS: S1 normal heart sound present and S2 normal heart sound present GI: COMMON NORMALS: Normal to inspection, nondistended, normoactive bowel sounds present, Soft to palpation and non-tender PALPATION: Yes Soft to palpation Extremity: COMMON NORMALS: no joint enlargement and no pedal edema Neuro: COMMON NORMALS: patient oriented x3 and moves all extremities SENSORIUM/ORIENTATION: Yes alert Skin: COMMON NORMALS: no rashes or lesions noted GENERAL SKIN EXAM: no rashes or lesions noted Data 05/12/22 03:25 05/12/22 03:25 Micro: Microbiology 05/11/22 17:30 MRSA Culture - Final Nose 05/11/22 03:59 Blood Culture - Preliminary Blood NEGATIVE TO DATE 05/11/22 03:45 Blood Culture - Preliminary Blood NEGATIVE TO DATE A&P Assessment and plan (1) Community acquired pneumonia: With hypoxic respiratory failure. Requiring up to 4 L nasal cannula. With quite significant exertional hypoxia, with minimal exertion try to get up required increased up to 6 L of nasal cannula and even then took a while to return saturation up to 85% from low 80s. Discharge canceled. For now we will continue care/work-up in the hospital she does also live alone, and with morbid obesity has a difficult time getting around as she is needing a lift chair at home. Will assess D-dimer as well. Follow-up chest x-ray. Continue ceftriaxone, azithromycin. Continue oxygen support. Wean down as tolerating. Attempted mobilization with PT. (2) Influenza A: Unfortunately Tamiflu not available. Continue treatment as above, supportive care. Support oxygenation. Continue monitor recovery in the hospital. (3) CKD (chronic kidney disease): With improvement, creatinine down to 1.6. Currently does not appear volume overloaded. Held diuretics for now. Reassess renal function, volume status. Follow-up chest x-ray. (4) Vitamin B12 deficiency: (5) Diabetes type 2, uncontrolled: Continue Lantus, SSI, CC diet (6) Amiodarone pulmonary toxicity: (7) Atrial fibrillation: Qualifiers: Atrial fibrillation type: unspecified Qualified Code(s): I48.91 - Unspecified atrial fibrillation (8) Hypomagnesemia: Replaced. Follow-up magnesium level. Plan A. fib without RVR Continue anticoagulating agent and AV ahmet blocking agents CAD Chronic pain Chronic respiratory failure Depression Fibromyalgia Called Patient initially Hypothyroidism MDD Other comorbidities Full code Cardiac diet Attestations Medical Necessity Statement*: Requiring admission for assessment management of hypoxic respiratory failure with community-acquired pneumonia, influenza A pneumonia, and lady with underlying pulmonary fibrosis. Coding Level of Care Code Acute Beach Attendant for [facility] Fwd Diagnoses Community acquired pneumonia J18.9 Influenza A J10.1 CKD (chronic kidney disease) N18.9 Vitamin B12 deficiency E53.8 Diabetes type 2, uncontrolled Amiodarone pulmonary toxicity J98.4; T46.2X5A Atrial fibrillation I48.91 Atrial fibrillation type: unspecified Hypomagnesemia E83.42
[2022-05-12 19:32] LABS: D Dimer 0.83 ug/mIFEU (0-0.59)
[2022-05-12] MEDS: vancomycin 1,500 MG/300 ML PIGGYBACK 200 MG IV (19:44)
[2022-05-12] MEDS: ondansetron 2 mg/ML SDV 2 mL 4 MG IVP (19:45)
[2022-05-12] MEDS: duloxetine 30 mg Capsule PO (20:08)
--- NOTE | 2022-05-12 20:22 | PC.NURSE ---
Addendum entered by Daniela Coleman RN 05/12/22 21:45: Site assessed: swollen area has gone down, no redness, patient is not experiencing itching or burning. Original Note: Vancomycin infiltrated on small area on patient's right wrist IV site. IV removed and warm compress applied. No redness noted, patient is experiencing some itching at the site.
[2022-05-12 21:21] LABS: Glucose Point of Care 169 mg/dL (70-110)
[2022-05-13] VITALS (12 sets, daily range): BP systolic 127–153; BP diastolic 70–81; PULSE 57–86; RESP 15–20; TEMP 36.8–37.2; O2SAT 90–98
--- NOTE | 2022-05-13 06:00 | XRR_ITS ---
PROCEDURE INFORMATION: Exam: XR Chest Exam date and time: 05/13/2022 7:58 AM Age: 66 years old Clinical indication: Hyperventilation; Additional info: Hypoxia TECHNIQUE: Imaging protocol: Radiologic exam of the chest. Views: 1 view. Total images: 3 COMPARISON: CR (CHEST, ) 05/11/2022 4:19 AM FINDINGS: Lungs: Pulmonary vascular congestion improved. Left basilar pulmonary opacity is again noted and has shown interval worsening from the prior exam. Pleural spaces: Unremarkable. No pleural effusion. No pneumothorax. Heart/Mediastinum: Cardiomegaly. Bones/joints: Osseous structures are unchanged from the prior exam. XR/XR chest 1V portable [id number] IMPRESSION: 1. Cardiomegaly with improved pulmonary vascular congestion. 2. Left basilar pulmonary opacity is again noted and has shown interval worsening from the prior exam.
[2022-05-13 06:01] LABS: Basophils % 0.2 %; Eosinophils # 0.1 10^3/uL (0.0-0.8); Hematocrit 41.8 % (37.0-47.0); Hemoglobin 12.9 g/dL (11.5-15.3); Lymphocytes # 1.7 10^3/uL (0.8-4.8); Lymphocytes % 15.3 %; Mean Corpuscular HGB Conc 30.9 g/dL (30.0-36.0); Mean Corpuscular Hemoglobin 28.2 pg (28.0-34.0); Mean Corpuscular Volume 91.5 fl (81-99); Mean Platelet Volume 10.8 fL (7.4-10.4); Monocytes # 0.8 10^3/uL (0.2-0.9); Monocytes % 6.8 %; Neutrophils # 8.48 10^3/uL (1.8-7.7); Neutrophils % 75.8 %; Nucleated Red Blood Cells % 0 %; Platelet Count 206 10^3/cmm (130-400); Red Blood Count 4.57 10^6/uL (4.1-5.3); Red Cell Distribution Width 15.3 % (12.1-15.1); White Blood Count 11.2 10^3/uL (4.0-10.0)
[2022-05-13 06:27] LABS: Anion Gap 12.8 (5-19); Blood Urea Nitrogen 25 mg/dL (8-23); Carbon Dioxide 30 mmol/L (22-29); Chloride 100 mmol/L (98-107); Glomerular Filtration Rate 37.5 mL/min (90-130); Glucose 124 mg/dL (65-115); Osmolality Calculated 294 mOsm/kg (285-295); Potassium 3.8 mmol/L (3.5-5.1); Sodium 139 mmol/L (136-145)
[2022-05-13 06:32] LABS: Glucose Point of Care 111 mg/dL (70-110)
[2022-05-13] MEDS: dilTIAZem ER (24HR) 120 mg Capsule PO (09:28)
[2022-05-13] MEDS: potassium chloride ER 20 mEq Tablet PO ×2 (09:28→18:08)
[2022-05-13] MEDS: pregabalin 50 mg Capsule PO ×2 (09:28→18:08)
[2022-05-13] MEDS: apixaban 5 mg Tablet PO ×2 (09:28→18:08)
[2022-05-13] MEDS: allopurinol 300 mg Tablet PO (09:28)
[2022-05-13] MEDS: metoprolol tartrate 50 mg Tablet 100 MG PO ×2 (09:28→18:08)
[2022-05-13] MEDS: levothyroxine 50 mcg Tablet PO (09:28)
[2022-05-13] MEDS: duloxetine 60 mg Capsule PO (09:28)
[2022-05-13] MEDS: cefTRIAXone 1,000 MG in sodium chloride 0.9% (plus) 50 ML 100 MG IV (09:29)
[2022-05-13] MEDS: doxycycline 100 mg Tablet PO ×2 (09:32→18:08)
[2022-05-13] MEDS: insulin glargine 100 units/1 mL 60 UNIT SUBCUT (09:40)
[2022-05-13] MEDS: fixodent 39 gm Tube 1 APPLIC DENTAL (10:28)
[2022-05-13] MEDS: benzonatate 100 mg Capsule PO ×2 (10:55→22:32)
[2022-05-13] MEDS: ipratropium-albuterol 3 mL Neb INHALATION ×3 (10:59→19:30)
[2022-05-13 11:27] LABS: Glucose Point of Care 139 mg/dL (70-110)
[2022-05-13] MEDS: acetaminophen 500 mg Tablet PO (11:27)
[2022-05-13 13:43] LABS: Iron 11 ug/dL (37-145); Percent Saturation 6.1 % (20-50); Total Iron Binding Capacity 178 mcg/dl; Unsaturated Iron Binding 167 ug/dL (112-347)
[2022-05-13 13:59] LABS: Procalcitonin 0.38 ng/mL (0-0.5); Vitamin B12 1001 pg/mL (232-1245)
[2022-05-13] MEDS: BuSPIRONE 10 mg Tablet PO ×2 (14:48→20:33)
--- NOTE | 2022-05-13 17:14 | PM.PN ---
Subjective Subjective: Hospital course, labs appreciated. Examination patient sitting in recliner. On 2 to 3 L oxygen supplementation. States she is still feeling pretty sick. Feeling pretty weak and her oxygen saturations dropping on ambulation. Vitals/I&O/Wt Last Vital Signs Temp 98.3 F 05/13/22 16:00 Pulse 72 05/13/22 16:00 Resp 16 05/13/22 16:00 BP 141/79 05/13/22 16:00 Pulse Ox 91 05/13/22 16:00 O2 Del Method 05/13/22 16:00 O2 Flow Rate 4 05/13/22 14:35 05/13/22 05/13/22 05/13/22 06:59 14:59 22:59 Intake Total 606.667 / 1720.000 530 / 530 Output Total 350 / 350 Balance 256.667 / 1370.000 530 / 530 Physical Exam Narrative: In recliner chair. Today does not appear to have malaise, constant, appears more energetic, and in better spirits. Const: COMMON NORMALS: patient oriented x3 and alert GENERAL APPEARANCE: cooperative NUTRITIONAL APPEARANCE: obese ORIENTATION/CONSCIOUSNESS: Yes awake HENMT: COMMON NORMALS: oropharynx normal Neck/C-Spine: COMMON NORMALS: no JVD Resp: COMMON NORMALS: normal respiratory effort and clear to auscultation bilaterally AUSCULTATION: clear to auscultation bilaterally Cardio: COMMON NORMALS: no JVD, regular rhythm, S1 normal heart sound present, S2 normal heart sound present and No murmurs present (Cardio) RHYTHM: regular rhythm HEART SOUNDS: S1 normal heart sound present and S2 normal heart sound present GI: COMMON NORMALS: Normal to inspection, nondistended, normoactive bowel sounds present, Soft to palpation and non-tender PALPATION: Yes Soft to palpation Extremity: COMMON NORMALS: no joint enlargement and no pedal edema Neuro: COMMON NORMALS: patient oriented x3 and moves all extremities SENSORIUM/ORIENTATION: Yes alert Skin: COMMON NORMALS: no rashes or lesions noted GENERAL SKIN EXAM: no rashes or lesions noted Data 05/13/22 05:38 05/13/22 05:38 Micro: Microbiology 05/13/22 15:27 Gram Stain - Final Sputum - Expectorated Sputum A&P Assessment and plan (1) Community acquired pneumonia: With hypoxic respiratory failure. Oxygen supplementation keeping saturation over 90%. CT chest without contrast. MRSA swab positive. Blood culture negative so far. For now continue with IV ceftriaxone, vancomycin. Check sputum culture. DuoNebs every 6 hour, budesonide twice daily. Start on low-dose Solu-Medrol 30 mg every 8 hourly. (2) Influenza A: Unfortunately Tamiflu not available. Continue treatment as above, supportive care. Support oxygenation. Continue monitor recovery in the hospital. (3) CKD (chronic kidney disease): Creatinine down to baseline. Medical reconciliation done for nephrotoxic drugs. (4) Vitamin B12 deficiency: (5) Diabetes type 2, uncontrolled: Continue Lantus, SSI, CC diet (6) Amiodarone pulmonary toxicity: (7) Atrial fibrillation: Qualifiers: Atrial fibrillation type: unspecified Qualified Code(s): I48.91 - Unspecified atrial fibrillation (8) Hypomagnesemia: Replaced. Follow-up magnesium level. Plan A. fib without RVR Continue anticoagulating agent and AV ahmet blocking agents CAD Chronic pain Chronic respiratory failure Depression Fibromyalgia Called Patient initially Hypothyroidism MDD Other comorbidities Full code Carb consistent cardiac diet Attestations Medical Necessity Statement*: Requires further hospitalization for management of hypoxia secondary to influenza A Time Spent in Patient Care: Greater than 35 minutes Coding Level of Care Code Acute Obstetrics Nurse Practitioner for [facility] Diagnoses Community acquired pneumonia J18.9 Influenza A J10.1 CKD (chronic kidney disease) N18.9 Vitamin B12 deficiency E53.8 Diabetes type 2, uncontrolled Amiodarone pulmonary toxicity J98.4; T46.2X5A Atrial fibrillation I48.91 Atrial fibrillation type: unspecified Hypomagnesemia E83.42
[2022-05-13 17:15] LABS: Glucose Point of Care 246 mg/dL (70-110)
--- NOTE | 2022-05-13 17:15 | CTR_ITS ---
PROCEDURE INFORMATION: Exam: CT Chest Without Contrast; Diagnostic Exam date and time: 05/13/2022 5:48 PM Age: 66 years old Clinical indication: Cough; Additional info: Pneumonia, hypoxia TECHNIQUE: Imaging protocol: Diagnostic computed tomography of the chest without contrast. Radiation optimization: All CT scans at this facility use at least one of these dose optimization techniques: automated exposure control; mA and/or kV adjustment per patient size (includes targeted exams where dose is matched to clinical indication); or iterative reconstruction. COMPARISON: CR (CHEST, ) 05/13/2022 7:58 AM RADIATION DOSE METRICS: Total DLP (mGy-cm): 768.01 FINDINGS: Limitations: Study is somewhat limited by patient respiratory motion. Lungs: There is patchy ground-glass opacity mostly in the lung bases with some a gravitational distribution worrisome for interstitial pulmonary edema. No focal consolidation is identified. Pleural spaces: There are small bilateral pleural effusions more on the right than on the left. Heart: The heart is mildly enlarged. There is severe atherosclerotic calcification of the coronary arteries. Lymph nodes: Unremarkable. No enlarged lymph nodes. Vasculature: There is no thoracic aortic aneurysm. Bones/joints: Unremarkable. No acute fracture. Soft tissues: Unremarkable. CT/CT chest wo con [id number] IMPRESSION: 1. Mild cardiomegaly 2. Findings worrisome for interstitial pulmonary edema. 3. Bilateral pleural effusions.
[2022-05-13] MEDS: insulin glargine 100 units/1 mL 90 UNIT SUBCUT (18:07)
[2022-05-13] MEDS: insulin lispro 100 unit/1 mL SUBCUT ×2 (18:08→20:55)
[2022-05-13] MEDS: ferrous gluconate 324 mg Tablet PO (18:08)
[2022-05-13] MEDS: budesonide 0.5 mg/2 mL Neb INHALATION (19:30)
[2022-05-13] MEDS: vancomycin 1,500 MG/300 ML PIGGYBACK 200 MG IV (20:33)
[2022-05-13] MEDS: duloxetine 30 mg Capsule PO (20:33)
[2022-05-13 20:34] LABS: Glucose Point of Care 330 mg/dL (70-110)
[2022-05-13] MEDS: LORazepam 0.5 mg Tablet PO (20:55)
[2022-05-14] VITALS (12 sets, daily range): BP systolic 133–186; BP diastolic 68–84; PULSE 68–82; RESP 16–19; TEMP 36.5–36.9; O2SAT 91–96
[2022-05-14] MEDS: ipratropium-albuterol 3 mL Neb INHALATION ×4 (01:27→20:24)
[2022-05-14 05:37] LABS: Basophils % 0.1 %; Hematocrit 40.5 % (37.0-47.0); Lymphocytes # 0.7 10^3/uL (0.8-4.8); Lymphocytes % 9.5 %; Mean Corpuscular HGB Conc 32.1 g/dL (30.0-36.0); Mean Corpuscular Hemoglobin 28.5 pg (28.0-34.0); Mean Corpuscular Volume 88.8 fl (81-99); Mean Platelet Volume 11.2 fL (7.4-10.4); Monocytes # 0.2 10^3/uL (0.2-0.9); Monocytes % 2.8 %; Neutrophils # 6.24 10^3/uL (1.8-7.7); Neutrophils % 86.4 %; Nucleated Red Blood Cells % 0 %; Platelet Count 236 10^3/cmm (130-400); Red Blood Count 4.56 10^6/uL (4.1-5.3); Red Cell Distribution Width 15.1 % (12.1-15.1); White Blood Count 7.2 10^3/uL (4.0-10.0)
[2022-05-14 05:59] LABS: Alanine Aminotransferase 12 U/L (0-33); Albumin Level 2.8 g/dL (3.5-5.2); Alkaline Phosphatase 82 U/L (35-105); Anion Gap 13.4 (5-19); Aspartate Amino Transferase 12 U/L (0-32); Blood Urea Nitrogen 32 mg/dL (8-23); Calcium 8.8 mg/dL (8.5-10.5); Carbon Dioxide 26 mmol/L (22-29); Chloride 93 mmol/L (98-107); Cholesterol 143 mg/dL (0-200); Globulin 3.5 g/dL (1.3-4.6); Glomerular Filtration Rate 37.5 mL/min (90-130); Glucose 297 mg/dL (65-115); HDL Cholesterol 42 mg/dL (60-100); LDL Cholesterol Calculated 83 mg/dL (50-129); Osmolality Calculated 284 mOsm/kg (285-295); Potassium 4.4 mmol/L (3.5-5.1); Sodium 128 mmol/L (136-145); Total Bilirubin 0.4 mg/dL (0.15-1.2); Total Protein 6.3 g/dL (6.6-8.7); Triglycerides 91 mg/dL (0-150); VLDL Cholestrol Calculation 18 mg/dL (0-30)
[2022-05-14 06:42] LABS: Glucose Point of Care 246 mg/dL (70-110)
[2022-05-14] MEDS: budesonide 0.5 mg/2 mL Neb INHALATION ×2 (08:10→20:24)
[2022-05-14] MEDS: BuSPIRONE 10 mg Tablet PO ×3 (09:16→21:09)
[2022-05-14] MEDS: doxycycline 100 mg Tablet PO (09:16)
[2022-05-14] MEDS: atorvastatin 40 mg Tablet 20 MG PO (09:16)
[2022-05-14] MEDS: duloxetine 60 mg Capsule PO (09:16)
[2022-05-14] MEDS: pregabalin 50 mg Capsule PO ×2 (09:16→17:36)
[2022-05-14] MEDS: potassium chloride ER 20 mEq Tablet PO ×2 (09:16→17:36)
[2022-05-14] MEDS: metoprolol tartrate 50 mg Tablet 100 MG PO ×2 (09:16→17:36)
[2022-05-14] MEDS: levothyroxine 50 mcg Tablet PO (09:16)
[2022-05-14] MEDS: dilTIAZem ER (24HR) 120 mg Capsule PO (09:16)
[2022-05-14] MEDS: apixaban 5 mg Tablet PO ×2 (09:17→17:36)
[2022-05-14] MEDS: ferrous gluconate 324 mg Tablet PO ×2 (09:17→17:36)
[2022-05-14] MEDS: insulin lispro 100 unit/1 mL SUBCUT ×4 (09:17→21:09)
[2022-05-14] MEDS: allopurinol 300 mg Tablet PO (09:18)
[2022-05-14] MEDS: benzonatate 100 mg Capsule 200 MG PO ×2 (09:24→21:09)
[2022-05-14] MEDS: cefTRIAXone 1,000 MG in sodium chloride 0.9% (plus) 50 ML 100 MG IV (09:24)
[2022-05-14] MEDS: insulin glargine 100 units/1 mL 90 UNIT SUBCUT ×2 (09:30→17:35)
[2022-05-14] MEDS: FUROsemide 10 mg/mL SDV 4mL 40 MG IVP (10:52)
[2022-05-14 11:58] LABS: Glucose Point of Care 350 mg/dL (70-110)
[2022-05-14 12:31] LABS: NT Pro B Type Natriuretic Pept 4157 pg/mL (0-125)
--- NOTE | 2022-05-14 15:34 | P.PN_ITS ---
Subjective Subjective: Overnight. Today morning patient seen sitting in recliner. About to work with physical therapy. Currently on 4 L. States she is feeling a lot better. Denies any nausea, vomiting, headache. Vitals/I&O/Wt Last Vital Signs Temp 98.0 F 05/14/22 12:00 Pulse 77 05/14/22 14:00 Resp 18 05/14/22 14:00 BP 150/68 05/14/22 12:00 Pulse Ox 96 05/14/22 14:00 O2 Del Method 05/14/22 14:00 O2 Flow Rate 4 05/14/22 14:00 05/14/22 05/14/22 05/14/22 06:59 14:59 22:59 Intake Total 290 / 290 Balance 290 / 290 Physical Exam Narrative: In recliner chair. Today does not appear to have malaise, constant, appears more energetic, and in better spirits. Const: COMMON NORMALS: patient oriented x3 and alert GENERAL APPEARANCE: cooperative NUTRITIONAL APPEARANCE: obese ORIENTATION/CONSCIOUSNESS: Yes awake HENMT: COMMON NORMALS: oropharynx normal Neck/C-Spine: COMMON NORMALS: no JVD Resp: COMMON NORMALS: normal respiratory effort and clear to auscultation bilaterally AUSCULTATION: clear to auscultation bilaterally Cardio: COMMON NORMALS: no JVD, regular rhythm, S1 normal heart sound present, S2 normal heart sound present and No murmurs present (Cardio) RHYTHM: regular rhythm HEART SOUNDS: S1 normal heart sound present and S2 normal heart sound present GI: COMMON NORMALS: Normal to inspection, nondistended, normoactive bowel sounds present, Soft to palpation and non-tender PALPATION: Yes Soft to palpation Extremity: COMMON NORMALS: no joint enlargement and no pedal edema Neuro: COMMON NORMALS: patient oriented x3 and moves all extremities SENSORIUM/ORIENTATION: Yes alert Skin: COMMON NORMALS: no rashes or lesions noted GENERAL SKIN EXAM: no rashes or lesions noted Data 05/14/22 04:59 05/14/22 04:59 Micro: Microbiology 05/13/22 15:27 Gram Stain - Final Sputum - Expectorated Sputum Sputum Culture - Preliminary A&P Assessment and plan (1) Community acquired pneumonia: With hypoxic respiratory failure. Oxygen supplementation keeping saturation over 90%. CT chest without contrast. MRSA swab positive. Blood culture negative so far. For now continue with IV ceftriaxone, vancomycin. Check sputum culture. DuoNebs every 6 hour, budesonide twice daily. Start on low-dose Solu-Medrol 30 mg every 8 hourly. (2) Influenza A: Unfortunately Tamiflu not available. Continue treatment as above, supportive care. Support oxygenation. Continue monitor recovery in the hospital. (3) CKD (chronic kidney disease): Creatinine down to baseline. Medical reconciliation done for nephrotoxic drugs. (4) Vitamin B12 deficiency: (5) Diabetes type 2, uncontrolled: Continue Lantus, SSI, CC diet (6) Amiodarone pulmonary toxicity: (7) Atrial fibrillation: Qualifiers: Atrial fibrillation type: unspecified Qualified Code(s): I48.91 - Unspecified atrial fibrillation (8) Hypomagnesemia: Replaced. Follow-up magnesium level. (9) MRSA (methicillin resistant staph aureus) culture positive: Plan A. fib without RVR Continue anticoagulating agent and AV ahmet blocking agents CAD Chronic pain Chronic respiratory failure Depression Fibromyalgia Called Patient initially Hypothyroidism MDD Other comorbidities Full code Carb consistent cardiac diet Plan for the day: Continue with ceftriaxone and vancomycin. Patient is MRSA positive. Follow sputum culture. Leukocytosis has resolved. Wean down Solu-Medrol 30 mg every 12 hourly. Continue with DuoNebs and budesonide. Physical therapy. Add proBNP. IV Lasix 40 mg 1 time a day. Increase insulin to high-dose protocol. Lantus to 90 units twice daily which is the home dose. Discharge planning: Plan to discharge home with caregiver if remains stable tomorrow on oral Levaquin and linezolid to finish a 7-day course along with steroid taper. 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
[2022-05-14 17:06] LABS: Glucose Point of Care 343 mg/dL (70-110)
[2022-05-14 20:58] LABS: Glucose Point of Care 360 mg/dL (70-110)
[2022-05-14] MEDS: duloxetine 30 mg Capsule PO (21:09)
[2022-05-14] MEDS: LORazepam 0.5 mg Tablet PO (21:10)
[2022-05-14] MEDS: vancomycin 1,500 MG/300 ML PIGGYBACK 200 MG IV (21:10)
[2022-05-15] VITALS (7 sets, daily range): BP systolic 146–156; BP diastolic 62–75; PULSE 62–78; RESP 16–17; TEMP 36.7–37; O2SAT 84–94
[2022-05-15] MEDS: ipratropium-albuterol 3 mL Neb INHALATION ×2 (01:37→08:20)
[2022-05-15 05:18] LABS: Basophils % 0.2 %; Hematocrit 41.4 % (37.0-47.0); Hemoglobin 13.2 g/dL (11.5-15.3); Lymphocytes # 0.9 10^3/uL (0.8-4.8); Lymphocytes % 6.3 %; Mean Corpuscular HGB Conc 31.9 g/dL (30.0-36.0); Mean Corpuscular Hemoglobin 28.3 pg (28.0-34.0); Mean Corpuscular Volume 88.8 fl (81-99); Mean Platelet Volume 10.8 fL (7.4-10.4); Monocytes # 0.8 10^3/uL (0.2-0.9); Monocytes % 5.2 %; Neutrophils # 12.87 10^3/uL (1.8-7.7); Neutrophils % 86.8 %; Nucleated Red Blood Cells % 0 %; Platelet Count 347 10^3/cmm (130-400); Red Blood Count 4.66 10^6/uL (4.1-5.3); Red Cell Distribution Width 14.8 % (12.1-15.1); White Blood Count 14.8 10^3/uL (4.0-10.0)
[2022-05-15 05:48] LABS: Anion Gap 14.9 (5-19); Blood Urea Nitrogen 44 mg/dL (8-23); Calcium 9.4 mg/dL (8.5-10.5); Carbon Dioxide 27 mmol/L (22-29); Chloride 97 mmol/L (98-107); Glomerular Filtration Rate 32.2 mL/min (90-130); Glucose 367 mg/dL (65-115); Magnesium 2.3 mg/dL (1.7-2.3); Osmolality Calculated 304 mOsm/kg (285-295); Potassium 4.9 mmol/L (3.5-5.1); Sodium 134 mmol/L (136-145)
[2022-05-15 06:34] LABS: Glucose Point of Care 348 mg/dL (70-110)
[2022-05-15] MEDS: budesonide 0.5 mg/2 mL Neb INHALATION (08:20)
[2022-05-15] MEDS: levothyroxine 50 mcg Tablet PO (09:07)
[2022-05-15] MEDS: duloxetine 60 mg Capsule PO (09:07)
[2022-05-15] MEDS: benzonatate 100 mg Capsule 200 MG PO (09:07)
[2022-05-15] MEDS: metoprolol tartrate 50 mg Tablet 100 MG PO (09:08)
[2022-05-15] MEDS: pregabalin 50 mg Capsule PO (09:08)
[2022-05-15] MEDS: dilTIAZem ER (24HR) 120 mg Capsule PO (09:08)
[2022-05-15] MEDS: BuSPIRONE 10 mg Tablet PO (09:08)
[2022-05-15] MEDS: apixaban 5 mg Tablet PO (09:08)
[2022-05-15] MEDS: atorvastatin 40 mg Tablet 20 MG PO (09:09)
[2022-05-15] MEDS: ferrous gluconate 324 mg Tablet PO (09:09)
[2022-05-15] MEDS: insulin lispro 100 unit/1 mL SUBCUT (09:10)
[2022-05-15] MEDS: cefTRIAXone 1,000 MG in sodium chloride 0.9% (plus) 50 ML 100 MG IV (09:10)
[2022-05-15] MEDS: potassium chloride ER 20 mEq Tablet PO (09:12)
[2022-05-15] MEDS: insulin glargine 100 units/1 mL 90 UNIT SUBCUT (09:13)
--- NOTE | 2022-05-15 09:46 | PM.DCS ---
Discharge Providers Date of Admission: 05/13/22 17:34 Date of Discharge: May 15, 2022 Attending Provider at Admission: Sylvie Quinteros MD Attending Provider at Discharge: Saleem Sharpe MD Primary Care Provider: Farhat Acosta MD Diagnoses at Discharge Discharge Diagnosis (1) Community acquired pneumonia: Status: Acute (2) Influenza A: Status: Acute (3) CKD (chronic kidney disease): Status: Acute (4) Vitamin B12 deficiency: Status: Acute (5) Diabetes type 2, uncontrolled: Status: Acute (6) Amiodarone pulmonary toxicity: Status: Acute (7) Atrial fibrillation: Status: Acute Qualifiers: Atrial fibrillation type: unspecified Qualified Code(s): I48.91 - Unspecified atrial fibrillation (8) Hypomagnesemia: Status: Acute (9) MRSA (methicillin resistant staph aureus) culture positive: Status: Acute Reason for Visit Reason for Visit: SOB Brief History: History as per HPI: Shauna Sena is a 66 year old female who carries a 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 Patient's symptoms started roughly 3 to 4 days ago, she has been noticing generalized weakness, body aches and nausea.? Worsening of her cough and shortness of breath prompted the visit to the ER.? She is endorsing nonproductive cough and pleuritic chest pain.? She also noticed fever 100.0 at home. ?In the ER she was diagnosed with influenza A pneumonia and superimposed bacterial pneumonia, she is requiring 4 L of oxygen, no sign of sepsis. She does have a history of A. fib, currently heart rate is well controlled She takes Eliquis COVID antigen negative Hospital Course Hospital Course Patient was admitted to hospital further evaluation and management of hypoxic respiratory failure. On evaluation she was found to be positive for influenza which was treated conservatively nebulization. As patient's oxygen needs continue to remain she was started on low-dose steroid and started on broad-spectrum antibiotics. Cultures remain negative though she was found to be positive for MRSA. Eventually she responded to the treatment and her oxygen supplementation. On admission there was also concern for diastolic heart failure for which she was started on IV diuresis after which she developed acute kidney injury. Kidney functions have been back to baseline on treatment as per fluid status. She is being discharged in stable condition on oral Levaquin and linezolid for next 3 days to finish the course of antibiotics along with steroid taper. She is also being discharged on nebulization. She is to continue taking 60 mg of Lasix twice daily at home. She is to follow-up with a primary care provider within next 1 week. Physical Exam Narrative: In recliner chair. Today does not appear to have malaise, constant, appears more energetic, and in better spirits. Const: COMMON NORMALS: patient oriented x3 and alert GENERAL APPEARANCE: cooperative NUTRITIONAL APPEARANCE: obese ORIENTATION/CONSCIOUSNESS: Yes awake HENMT: COMMON NORMALS: oropharynx normal Neck/C-Spine: COMMON NORMALS: no JVD Resp: COMMON NORMALS: normal respiratory effort and clear to auscultation bilaterally AUSCULTATION: clear to auscultation bilaterally Cardio: COMMON NORMALS: no JVD, regular rhythm, S1 normal heart sound present, S2 normal heart sound present and No murmurs present (Cardio) RHYTHM: regular rhythm HEART SOUNDS: S1 normal heart sound present and S2 normal heart sound present GI: COMMON NORMALS: Normal to inspection, nondistended, normoactive bowel sounds present, Soft to palpation and non-tender PALPATION: Yes Soft to palpation Extremity: COMMON NORMALS: no joint enlargement and no pedal edema Neuro: COMMON NORMALS: patient oriented x3 and moves all extremities SENSORIUM/ORIENTATION: Yes alert Skin: COMMON NORMALS: no rashes or lesions noted GENERAL SKIN EXAM: no rashes or lesions noted Discharge Data Studies Completed and Pending Completed Studies During Hospitalization Category Date Time Status CT chest con [id number] Routine Cat Scan 05/13/22 17:15 Completed XR chest 1V portable [id number] Routine Exams 05/13/22 06:00 Completed XR chest 1V portable [id number] Stat Exams 05/11/22 03:17 Completed Pending at discharge Category Date Time Status Blood Culture Stat Lab 05/11/22 03:59 Results Sputum Culture and Gram Stain Stat Lab 05/13/22 15:27 Results Vancomycin Trough Timed Lab 05/15/22 19:00 Ordered Radiology Impressions Chest X-Ray 05/13/22 06:00 IMPRESSION: 1. Cardiomegaly with improved pulmonary vascular congestion. 2. Left basilar pulmonary opacity is again noted and has shown interval worsening from the prior exam. Chest CT 05/13/22 17:15 IMPRESSION: 1. Mild cardiomegaly 2. Findings worrisome for interstitial pulmonary edema. 3. Bilateral pleural effusions. ADDENDUM: 05/13/222046 Addendum: There is mediastinal and hilar adenopathy with right paratracheal lymph nodes measuring up to 15 x 21 mm, prevascular lymph nodes measuring up to 10 x 15 mm and mildly prominent right and left hilar lymph nodes. These findings were inadvertently deleted from the initial report. Additional impression: Mild hilar and mediastinal adenopathy. The additional findings were discussed with Dr. 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 Laboratory Results WBC 14.8 10^3/uL (4.0-10.0) H 05/15/22 05:00 RBC 4.66 10^6/uL (4.1-5.3) 05/15/22 05:00 Hgb 13.2 g/dL (11.5-15.3) 05/15/22 05:00 Hct 41.4 % (37.0-47.0) 05/15/22 05:00 MCV 88.8 fl (81-99) 05/15/22 05:00 MCH 28.3 pg (28.0-34.0) 05/15/22 05:00 MCHC 31.9 g/dL (30.0-36.0) 05/15/22 05:00 RDW 14.8 % (12.1-15.1) 05/15/22 05:00 Plt Count 347 10^3/cmm (130-400) D 05/15/22 05:00 MPV 10.8 fL (7.4-10.4) H 05/15/22 05:00 Neut % (Auto) 86.8 % 05/15/22 05:00 Lymph % (Auto) 6.3 % 05/15/22 05:00 [place] % (Auto) 5.2 % 05/15/22 05:00 Eos % (Auto) 0.0 % 05/15/22 05:00 Baso % (Auto) 0.2 % 05/15/22 05:00 Neut # (Auto) 12.87 10^3/uL (1.8-7.7) H 05/15/22 05:00 Lymph # (Auto) 0.9 10^3/uL (0.8-4.8) 05/15/22 05:00 [place] # (Auto) 0.8 10^3/uL (0.2-0.9) 05/15/22 05:00 Eos # (Auto) 0.0 10^3/uL (0.0-0.8) 05/15/22 05:00 Baso # (Auto) 0.0 10^3/uL (0.0-0.1) 05/15/22 05:00 Nucleated RBC % (auto) 0 % 05/15/22 05:00 Nucleated RBCs # 0.0 /100WBC 05/15/22 05:00 PT 15.30 SECONDS (12.1-14.9) H 05/11/22 03:30 INR 1.17 (0.8-1.2) 05/11/22 03:30 D-Dimer 0.83 ug/mIFEU (0-0.59) H 05/12/22 19:09 Sodium 134 mmol/L (136-145) L 05/15/22 05:00 Potassium 4.9 mmol/L (3.5-5.1) 05/15/22 05:00 Chloride 97 mmol/L (98-107) L 05/15/22 05:00 Carbon Dioxide 27 mmol/L (22-29) 05/15/22 05:00 Anion Gap 14.9 (5-19) 05/15/22 05:00 BUN 44 mg/dL (8-23) H 05/15/22 05:00 Creatinine 1.6 mg/dL (0.5-0.9) H 05/15/22 05:00 GFR Calculation 32.2 mL/min (90-130) L 05/15/22 05:00 Glucose 367 mg/dL (65-115) H 05/15/22 05:00 POC Glucose 348 mg/dL (70-110) H 05/15/22 06:28 Calculated Osmolality 304 mOsm/kg (285-295) H 05/15/22 05:00 Calcium 9.4 mg/dL (8.5-10.5) 05/15/22 05:00 Phosphorus 2.7 mg/dL (2.5-4.5) 05/12/22 03:25 Magnesium 2.3 mg/dL (1.7-2.3) 05/15/22 05:00 Iron 11 ug/dL (37-145) L 05/13/22 13:09 TIBC 178 mcg/dl 05/13/22 13:09 % Saturation 6.1 % (20-50) L 05/13/22 13:09 Unsat Iron Binding 167 ug/dL (112-347) 05/13/22 13:09 Total Bilirubin 0.4 mg/dL (0.15-1.2) 05/14/22 04:59 AST 12 U/L (0-32) 05/14/22 04:59 ALT 12 U/L (0-33) 05/14/22 04:59 Alkaline Phosphatase 82 U/L (35-105) 05/14/22 04:59 C-Reactive Protein 263.2 mg/L (0.0-4.9) H 05/12/22 03:25 NT-Pro-B Natriuret Pep 4157 pg/mL (0-125) H 05/14/22 04:59 Total Protein 6.3 g/dL (6.6-8.7) L 05/14/22 04:59 Albumin 2.8 g/dL (3.5-5.2) L 05/14/22 04:59 Globulin 3.5 g/dL (1.3-4.6) 05/14/22 04:59 Triglycerides 91 mg/dL (0-150) 05/14/22 04:59 Cholesterol 143 mg/dL (0-200) 05/14/22 04:59 LDL Cholesterol, Calc 83 mg/dL (50-129) 05/14/22 04:59 Total VLDL Cholesterol 18 mg/dL (0-30) 05/14/22 04:59 HDL Cholesterol 42 mg/dL (60-100) L 05/14/22 04:59 Cholesterol/HDL Ratio 3.40 mg/dL (0.0-4.40) 05/14/22 04:59 Vitamin B12 1001 pg/mL (232-1245) 05/13/22 13:09 Folate 6.0 ng/mL (4.8-37.3) 05/13/22 13:09 Procalcitonin 0.38 ng/mL (0-0.5) 05/13/22 13:09 Influenza Type A Ag positive (Negative) 05/11/22 03:27 Influenza Type B Ag negative (Negative) 05/11/22 03:27 SARS-CoV-2 Ag (Rapid) negative (Negative) 05/11/22 03:27 Vitals Last Vital Signs Temp 98.1 F 05/15/22 08:00 Pulse 72 05/15/22 08:20 Resp 16 05/15/22 08:20 BP 156/62 05/15/22 08:00 Pulse Ox 94 05/15/22 08:20 O2 Del Method 05/15/22 08:20 O2 Flow Rate 3 05/15/22 08:20 Discharge Plan Discharge Patient Disposition: Home Condition: Stable Prescriptions: New ipratropium-albuterol 0.5 mg-3 mg(2.5 mg base)/3 mL Solution For Nebulization 3 ml inhalation Q6H PRN (Reason: shortness of breath or wheezing) Qty: 180 0RF linezolid 600 mg tablet 600 mg PO Q12H 3 Days Qty: 6 0RF levofloxacin 500 mg tablet 500 mg PO Q24H 3 Days Qty: 3 0RF prednisone 10 mg tablet See Rx Instructions .ROUTE .COMPLEX Qty: 30 0RF Rx Instructions: prednisone 5 mg: take 8 tablets (40 mg) on Day 1; 7 tablets (35 mg) on Day 2; then decrease by 1 tablet every day until finished Continued apixaban 5 mg tablet 5 mg PO BID albuterol sulfate [ProAir HFA] 90 mcg/actuation HFA aerosol inhaler 2 puff INHALATION Q6H PRN (Reason: Shortness Of Breath) Lantus U-100 Insulin 100 unit/mL solution 90 unit SUBCUT BID Qty: 80 6RF (DME) FreeStyle Lou 14 Day Sensor Kit See Rx Instructions .Route Qty: 1 0RF Rx Instructions: As directed metoprolol tartrate 100 mg tablet 100 mg PO BID Qty: 60 6RF (DME) FreeStyle Lou 14 Day Sensor Kit See Rx Instructions .Route Qty: 1 0RF Rx Instructions: As directed buspirone 10 mg tablet 10 mg PO TID Qty: 90 1RF lorazepam 0.5 mg tablet 0.5 mg PO BID PRN (Reason: anxiety) Qty: 60 1RF diltiazem HCl 120 mg capsule,extended release 24hr 120 mg PO DAILY Qty: 90 0RF cyclobenzaprine 10 mg tablet 10 mg PO TID PRN (Reason: muscle spasm) Qty: 30 2RF cyanocobalamin (vitamin B-12) [Vitamin B-12] 1,000 mcg tablet 1,000 mcg PO DAILY Qty: 30 6RF allopurinol 300 mg tablet 300 mg PO DAILY Qty: 90 3RF pregabalin 50 mg capsule 50 mg PO BID Qty: 60 2RF duloxetine 30 mg capsule,delayed release(DR/EC) 30 mg PO BEDTIME hydrocodone-acetaminophen 5-325 mg tablet 1 tab PO BID PRN (Reason: Pain) acetaminophen 500 mg Tablet 1,000 mg PO Q6H PRN (Reason: Pain) simvastatin 40 mg tablet 40 mg PO DAILY potassium chloride 20 mEq tablet,ER particles/crystals 20 meq PO BID levothyroxine 50 mcg tablet 50 mcg PO DAILY Nitrostat 0.4 mg Tablet, Sublingual 0.4 mg SUBLINGUAL Q5M PRN (Reason: Chest Pain) Rx Instructions: do not exceed 3 doses per episode duloxetine 60 mg capsule,delayed release(DR/EC) 60 mg PO QAM Trulicity 0.75 mg/0.5 mL pen injector 0.75 mg SUBCUT Q7D Rx Instructions: on sun Changed furosemide 40 mg tablet 60 mg PO BID 30 Days Qty: 90 0RF Discontinued celecoxib 100 mg capsule 100 mg PO BID Qty: 30 0RF Discharge Orders: Discharge Order (Routine); Ordered 05/15/22 Ordered By: Saleem Sharpe Other Ambulatory Orders: DME: Nebulizer with Neb Kit (Order) Timeframe: 1 Day Location: None Selected Ordered By: Rayray Peters DME: Oxygen (Order) Location: None Selected Ordered By: Saleem Sharpe Referrals: Farhat Acosta MD [Primary Care Provider] - 05/22/22 11:40 am () Discharge Diet: Cardiac Discharge Activity: Increase activity as tolerated and Oxygen as instructed Patient Instructions: Prednisone (By mouth), Levofloxacin (By mouth), Linezolid (By mouth), Influenza (GEN), Using Oxygen at Home (GEN), Community Acquired Pneumonia (GEN), Bronchospasm (GEN), Hypoxia (GEN), Opioid Safety Activity Restrictions/Additional Instructions: You expected to continue to gradually recover from influenza. Complete antibiotic for suspected superimposed bacterial pneumonia. And nebulizer is requested for you due to influenza and pneumonia with bronchospasm/wheezing. Continue oxygen at home, target oxygen saturation 92%. Once you recover from your condition discussed with your primary doctor referral for pulmonary function testing. Please stop celecoxib, avoid NSAIDs with chronic kidney disease. Discharge Attestations Time Spent in Discharge Care*: greater than 30 min Specific Discharge Activities: educating patient, discussing with pcp/other providers, discussing with correctional case records supervisor/social workers/dc planners, documenting/other paperwork and evaluating patient/reviewing data Status at Discharge: Cognitive status at discharge: cognitively intact, Behavioral status at discharge: cooperative, Functional status at discharge: independent ambulation, Overall status at discharge: patient is back to baseline Quality Metrics Clinical Quality Measures [ No reported AMI, CVA or VTE this stay] Coding Level of Care Code Acute Chg FW DC note History Comprehensive Exam Comprehensive Medical Decision Making High Complexity Diagnoses Community acquired pneumonia J18.9 Influenza A J10.1 CKD (chronic kidney disease) N18.9 Vitamin B12 deficiency E53.8 Diabetes type 2, uncontrolled Amiodarone pulmonary toxicity J98.4; T46.2X5A Atrial fibrillation I48.91 Atrial fibrillation type: unspecified Hypomagnesemia E83.42 MRSA (methicillin resistant staph aureus) culture positive Z22.322
[2022-05-15] MEDS: allopurinol 300 mg Tablet PO (10:31)
--- NOTE | 2022-05-15 11:42 | PC.CHAP ---
Pastoral Care Encounter/Spiritual Assessment Type of Contact [] Declined production operations inspector visit [] Patient/Family/Request visit [] Outpatient visit [] Follow-up visit [] Physician referral [] Code/Alert [x] Routine visit [] Staff referral [] Actively dying [] Patient sleeping [] Family support [] [] Out of room [] Palliative care [] [] Receiving care in room [] Pre-surgical visit [] Trauma [] Long length of stay [] ICU visit [x] Other: m isolation Relational/Emotional Strength [] Patient feels connected with others/family/visitors/staff [] Distress [] Loneliness/isolation [] Abandonment Spirituality of Patient [] Person of [place] [] Attends Sikh of their [place] [] Believes in Prayer [] Reads Bible or Worship materials [] There are Spiritual issues to be addressed 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 Machine Operator Interventions [] Prayer [] Active listening [] Non-anxious presence [] Spiritual/emotional support [] Crisis/trauma care [] Spiritual counseling [] Bereavement support [] Provided bereavement packet [] Provided Bible/devotional materials [] Provided toy/stuffed animal, coloring book to patient or family member [] Provided Communion [] Anointing/[place] [] Salvation [] Completed spiritual assessment [] Other: Impact on Illness or Injury [] Angry [] Fearful [] Anxious [] Often cries [] Exhaustion [] Unable to work [] Unable to attend episcopalian [] Unable to walk/stand [] Unable to read [] Unable to drive [] Unable to eat/drink [] Unable to sleep [] Unable to be with family [] Patient intubated [] Other: Summary Time spent with patient
== END 2022-05-15 13:52 | disposition home or self-care (01) | DRG 193 ==
LOC: ER 04:41 → MEDSURG 05:35
PROVIDERS: Internal Medicine; Admitting Provider Internal Medicine; Emergency Provider Emergency Medicine; PCP Family Medicine; Visit Provider Student in an Organized Health Care Education/Training Program
DX: J10.00 Influenza due to other identified influenza virus with unspecified type of pneumonia (principal); J96.21 Acute and chronic respiratory failure with hypoxia; F33.9 Major depressive disorder, recurrent, unspecified; N17.9 Acute kidney failure, unspecified; I50.30 Unspecified diastolic (congestive) heart failure; J70.3 Chronic drug-induced interstitial lung disorders; T46.2X5A Adverse effect of other antidysrhythmic drugs, initial encounter; Z99.81 Dependence on supplemental oxygen; J15.9 Unspecified bacterial pneumonia; I48.91 Unspecified atrial fibrillation; I25.10 Atherosclerotic heart disease of native coronary artery without angina pectoris; Z95.5 Presence of coronary angioplasty implant and graft; G89.29 Other chronic pain; M79.605 Pain in left leg; E11.22 Type 2 diabetes mellitus with diabetic chronic kidney disease; E11.65 Type 2 diabetes mellitus with hyperglycemia; N18.9 Chronic kidney disease, unspecified; M79.7 Fibromyalgia; M10.9 Gout, unspecified; E78.00 Pure hypercholesterolemia, unspecified; E78.5 Hyperlipidemia, unspecified; E03.9 Hypothyroidism, unspecified; E53.8 Deficiency of other specified B group vitamins; E83.42 Hypomagnesemia; B95.62 Methicillin resistant Staphylococcus aureus infection as the cause of diseases classified elsewhere
CPT/HCPCS: 36415; 36416; 71045; 71250; 80048; 80053; 80061; 82607; 82746; 82962; 83540; 83550; 83735; 83880; 84100; 84145; 85025; 85378; 85610; 86140; 87040; 87070; 87205; 87426; 87641; 87804; 93005; 94640; 94760; 96365; 96367; 96372; 97110; 97116; 97162; 99285; G0378; J0456; J0696; J1815; J1940; J2405; J2920; J3370; J3475; J7030; J7050; J7626

== ENCOUNTER → 2022-06-07 13:41 | Outpatient (BNVA) | payer MEDICARE, MEDICAID, SELFPAY | PROVIDERS: PCP Family Medicine; Visit Provider Family Medicine | DX: B34.9 Viral infection, unspecified (principal); J18.9 Pneumonia, unspecified organism | CPT/HCPCS: 87426 ==

== ENCOUNTER 2022-07-28 16:33 | Inpatient (IN) | payer MEDICARE, MEDICAID, SELFPAY ==
[2022-07-28 16:39] VITALS: BP 136/59; PULSE 104; RESP 22; TEMP 37.9; O2SAT 98
--- NOTE | 2022-07-28 16:54 | XRR_ITS ---
PROCEDURE INFORMATION: Exam: XR Chest Exam date and time: 07/28/2022 5:02 PM Age: 66 years old Clinical indication: Shortness of breath; Prior surgery; Surgery type: Stents; Patient HX: HX of several heart attacks; Additional info: SOB TECHNIQUE: Imaging protocol: Radiologic exam of the chest. Views: 1 view. COMPARISON: CT chest con [id number] 05/13/2022 5:48 PM FINDINGS: Lungs: No consolidative pulmonary infiltrate noted. Pleural spaces: No pleural effusion. No pneumothorax. Heart/Mediastinum: Mild cardiomegaly is noted. Vasculature: The thoracic aorta is atherosclerotic. Bones/joints: Ankylosis of the thoracic spine. No acute osseous abnormality. XR/XR chest 1V portable [id number] IMPRESSION: 1. Mild cardiomegaly is noted. 2. No consolidative pulmonary infiltrate noted.
--- NOTE | 2022-07-28 16:55 | ECG_ITS ---
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 Measurements Intervals [place] Rate: 109 P: 83 NV: 205 QRS: 50 QRSD: 102 T: 52 QT: 344 QTc: 465 Interpretive Statements SINUS TACHYCARDIA INDETERMINATE AXIS Compared to ECG 05/11/2022 03:21:11 Indeterminate axis now present Sinus rhythm no longer present First degree AV block no longer present ST (T wave) deviation no longer present Electronically Signed On 07-28-2022 21:56:54 SURVEILLANCE OPERATOR by Seth Santillan M.D. [id number]
--- NOTE | 2022-07-28 16:56 | W.ED.GENADLT ---
HPI - General Adult General: Chief complaint: General Medical Stated complaint: SOB Time Seen by Provider: 07/28/22 16:34 Source: patient Mode of arrival: EMS Limitations: no limitations History of Present Illness: This patient was transported by [facility] to the emergency department. She states that approximately 7 AM she began to have increasing short of breath felt like her heart was racing and she had low-grade fever. She states she has also had some vomiting and diarrhea. She states she has had chest discomfort most of the day. She has a history of atrial fibrillation as well as CAD with prior stents, CHF as well as oxygen dependent COPD. She was exposed to influenza earlier this week from her granddaughter. She has not had influenza vaccine this year or COVID-vaccine. She denies any cough at this time. She states she had episodes of atrial fib with fast heart rate yesterday. Associated symptoms: Reports chest pain, dyspnea, nausea, palpitations and vomiting; Deny headache(s) or rash Review of Systems Const: Reports: fever(s) and body aches Eyes: Denies: change in vision ENMT: Denies: throat pain, nasal discharge or nasal congestion Card: Reports: chest pain, palpitations and irregular heart rhythm Resp: Reports: dyspnea and non-productive cough GI: Reports: nausea, vomiting and diarrhea; Denies: abdominal pain : Denies: flank pain, difficulty voiding, dysuria or urinary frequency Musc: Reports: extremity pain and joint pain; Denies: neck pain, back pain or extremity swelling Skin/Breast: Denies: rash or pruritus Neuro: Denies: headache(s), numbness in extremities or weakness in extremities PFS ED PFSH: Medical History Amiodarone pulmonary toxicity Atrial fibrillation CAD (coronary artery disease) Last echocardiogram 08/06 with EF of 50% Chronic pain She reports taking pain medicines and muscle relaxers for a recent back injury; she has chronic left leg pain. Chronic respiratory failure CKD (chronic kidney disease) Depression Diabetes mellitus Fibromyalgia Gout HTN (hypertension) Hypercholesteremia Hyperlipidemia Hypothyroidism Major depressive disorder, recurrent severe without psychotic features MRSA (methicillin resistant staph aureus) culture positive Psychiatric care Surgical History H/O cardiac radiofrequency ablation H/O section H/O eye surgery H/O left knee surgery History of back surgery History of carpal tunnel release History of coronary artery stent placement History of hysterectomy partial History of incision and drainage Right breast abscess Hx of cholecystectomy Family History Mother Cancer breast Stroke Brother Heart disease Asthma Cancer prostate Sister Heart disease Social History Smoking and tobacco status: never smoked Alcohol intake: never Housing: Other Details: Currently with her family Physical Exam Narrative: EXAM NARRATIVE: She is alert makes good eye contact. She is slightly dyspneic with conversation. Const: COMMON NORMALS: patient oriented x3 and alert GENERAL APPEARANCE: cooperative NUTRITIONAL APPEARANCE: overweight HENMT: COMMON NORMALS: normocephalic, Normal nasal mucous membranes and turbinates present, moist oral mucous membranes and oropharynx normal HEAD & SCALP: normocephalic FACE & SINUS: normal facial exam NOSE: Normal nasal mucous membranes and turbinates present Eye: COMMON NORMALS: Equal, round and reactive pupils present, EOMs intact bilaterally and conjunctivae normal CONJUNCTIVA: Yes conjunctivae normal PUPIL: Yes Equal, round and reactive pupils present Neck/C-Spine: COMMON NORMALS: full ROM, no lymphadenopathy, no JVD and No carotid bruits Chest: COMMONS NORMALS: normal inspection of the chest and normal palpation of entire chest wall Resp: COMMON NORMALS: normal respiratory effort, No retractions and No use of accessory muscles AUSCULTATION: diminished lung sounds (At bases) Cardio: COMMON NORMALS: no JVD, No murmurs present (Cardio) and Peripheral pulses 2+ throughout RATE: tachycardic PERIPHERAL PULSES: Peripheral pulses 2+ throughout GI: COMMON NORMALS: Normal to inspection, nondistended, normoactive bowel sounds present, Soft to palpation and non-tender PALPATION: Yes Soft to palpation : COMMON NORMALS: Yes no CVA tenderness BLADDER/KIDNEY EXAM: Yes no CVA tenderness Back/Pelvis: COMMON NORMALS: no CVA tenderness, thoracic and lumbar spine normal to inspection and no thoracic nor lumbar tenderness Extremity: COMMON NORMALS: normal to inspection, full ROM, capillary refill normal, no calf tenderness and no pedal edema Neuro: COMMON NORMALS: patient oriented x3, moves all extremities and no sensory deficits noted SENSORIUM/ORIENTATION: Yes alert CRANIAL NERVES: Yes CN normal except as noted Psych: COMMON NORMALS: mental status grossly normal Skin: COMMON NORMALS: no rashes or lesions noted, no wounds and turgor normal GENERAL SKIN EXAM: no rashes or lesions noted and turgor normal Course Reevaluation(s): Reevaluation #1: Blood gas shows respiratory alkalosis. With mild hypoxia. She has cardiomegalyPalpitations and history of CHF. Her chest x-ray otherwise is relatively clear. She is relatively sedentary but is on Eliquis because of her atrial fibrillation. We will go ahead and proceed with a CTPA to ensure that there is no evidence of thromboembolic issues. Time: 18:10 Reevaluation #2: I am awaiting her CTPA. There is considerable amount of imaging going on at this time so therefore she has been delayed. She still somewhat anxious we will give her an additional dose of Ativan. Time: 19:24 Reevaluation #3: Call placed to hospitalist. Discussed with Dr. Oliva overnight ED physician who will review the case with her for admission. Time: 23:17 Vital Signs: Vital signs: Vital Signs Temperature 100.2 F H 07/28/22 16:39 Pulse Rate 81 07/28/22 17:15 Respiratory Rate 16 07/28/22 17:15 Blood Pressure 136/59 07/28/22 16:39 Pulse Oximetry 90 07/28/22 17:15 Oxygen Delivery Me thod 07/28/22 17:15 Oxygen Flow Rate 3 07/28/22 16:39 MDM - General Adult Medical Decision Making This patient presented to the emergency department with a history of body aches, chills, fever feeling short winded and chest discomfort. She has had a history of coronary artery disease as well as a history of atrial fibrillation.She has a other comorbidities to include diabetesAnd controlled congestive heart failure. Her evaluation here revealed a respiratory alkalosis with mild hypoxia that corrected easily with increasing oxygen over her baseline. Her chest x-rayInitially showed only cardiomegaly. Because of her history of sedentary lifestyle as well as other comorbidities a CTA was obtained. It did show mixed picture but no obvious pulmonary embolus but suggestion of possible infectious etiology. That combined with her fever and her other presenting symptoms suggest a community-acquired pneumonia. Lactic acid was elevated but not to the point where she required significant volume resuscitation. Her viral studies were negative for COVID and as well as influenza. She did have a slight elevation in her troponin but did not trend upward likely related to her chronic congestive heart failure rather than ACS. She is being admitted to the hospital for continued antibiotics, reassessment of her clinical response and further treatment as indicated. Medical Records I reviewed the patient's medical records. Lab Data I reviewed the patient's lab results. 07/28/22 17:37 07/28/22 17:37 Radiology Impressions Chest X-Ray 07/28/22 16:54 IMPRESSION: 1. Mild cardiomegaly is noted. 2. No consolidative pulmonary infiltrate noted. Chest CTA 07/28/22 18:10 IMPRESSION: 1. The study is limited by patient respiratory motion artifact. 2. Cardiomegaly is present. 3. Mild mosaic attenuation throughout both lungs, which may indicate mild pulmonary edema versus small airways disease versus infection. 4. Mild mediastinal adenopathy, with lymph nodes measuring up to 13 mm short axis. Laboratory Results WBC 10.1 10^3/uL (4.0-10.0) H 07/28/22 17:37 RBC 5.93 10^6/uL (4.1-5.3) H 07/28/22 17:37 Hgb 16.4 g/dL (11.5-15.3) H 07/28/22 17:37 Hct 51.0 % (37.0-47.0) H 07/28/22 17:37 MCV 86.0 fl (81-99) 07/28/22 17:37 MCH 27.7 pg (28.0-34.0) L 07/28/22 17:37 MCHC 32.2 g/dL (30.0-36.0) 07/28/22 17:37 RDW 14.6 % (12.1-15.1) 07/28/22 17:37 Plt Count 290 10^3/cmm (130-400) 07/28/22 17:37 MPV 10.8 fL (7.4-10.4) H 07/28/22 17:37 Neut % (Auto) 82.5 % 07/28/22 17:37 Lymph % (Auto) 9.0 % 07/28/22 17: [place] % (Auto) 5.7 % 07/28/22 17:37 Eos % (Auto) 2.0 % 07/28/22 17:37 Baso % (Auto) 0.3 % 07/28/22 17:37 Neut # (Auto) 8.30 10^3/uL (1.8-7.7) H 07/28/22 17:37 Lymph # (Auto) 0.9 10^3/uL (0.8-4.8) 07/28/22 17:37 [place] # (Auto) 0.6 10^3/uL (0.2-0.9) 07/28/22 17:37 Eos # (Auto) 0.2 10^3/uL (0.0-0.8) 07/28/22 17:37 Baso # (Auto) 0.0 10^3/uL (0.0-0.1) 07/28/22 17:37 Nucleated RBC % (auto) 0 % 07/28/22 17:37 Nucleated RBCs # 0.0 /100WBC 07/28/22 17:37 Specimen Type Arterial 07/28/22 17:45 Sample Site Brachial, left 07/28/22 17:45 ABG pH 7.65 (7.35-7.45) H* 07/28/22 17:45 ABG pCO2 22.0 mmHg (35-45) L 07/28/22 17:45 ABG pO2 48.5 mmHg (80.0-100.0) L 07/28/22 17:45 ABG HCO3 23.9 mmol/L (22-26) 07/28/22 17:45 ABG O2 Saturation 93.7 07/28/22 17:45 ABG Base Excess 5.1 mmol/L (-2.0-2.0) H 07/28/22 17:45 [place]ito Test N/a 07/28/22 17:45 A-a O2 Gradient 20.0 mmHg (5-10) H 07/28/22 17:45 Hematocrit 48.7 % (37-47) H 07/28/22 17:45 Hgb O2 Saturation 91.9 % (95-100) L 07/28/22 17:45 Carboxyhemoglobin 1.6 %THgb (0.4-20.1) 07/28/22 17:45 Methemoglobin 0.3 % (0.4-1.5) L 07/28/22 17:45 Total Hemoglobin 15.9 g/dL (12-16) 07/28/22 17:45 Sodium 135.0 mmol/L (131-143) 07/28/22 17:45 Potassium 4.0 mmol/L (3.5-5.0) 07/28/22 17:45 Glucose 245.0 mg/dL (70-115) H 07/28/22 17:45 Ionized Calcium 1.1 mmol/L (1.1-1.4) 07/28/22 17:45 O2 Delivery Device Nc 07/28/22 17:45 O2 Liters/Min 3.0 % 07/28/22 17:45 FiO2 32.0 % 07/28/22 17:45 Telegraph Repeater Technician ID glc 07/28/22 17:45 Sodium 136 mmol/L (136-145) 07/28/22 17:37 Potassium 3.8 mmol/L (3.5-5.1) 07/28/22 17:37 Chloride 96 mmol/L (98-107) L 07/28/22 17:37 Carbon Dioxide 25 mmol/L (22-29) 07/28/22 17:37 Anion Gap 18.8 (5-19) 07/28/22 17:37 BUN 26 mg/dL (8-23) H 07/28/22 17:37 Creatinine 1.5 mg/dL (0.5-0.9) H 07/28/22 17:37 GFR Calculation 34.6 mL/min (90-130) L 07/28/22 17:37 Glucose 243 mg/dL (65-115) H 07/28/22 17:37 Calculated Osmolality 295 mOsm/kg (285-295) 07/28/22 17:37 Lactate 3.0 mmol/L (0.5-2.2) H 07/28/22 17:37 Calcium 9.5 mg/dL (8.5-10.5) 07/28/22 17:37 Total Bilirubin 0.6 mg/dL (0.15-1.2) 07/28/22 17:37 AST 15 U/L (0-32) 07/28/22 17:37 ALT 17 U/L (0-33) 07/28/22 17:37 Alkaline Phosphatase 104 U/L (35-105) 07/28/22 17:37 Troponin T Baseline 27 ng/L (0-10) H 07/28/22 17:37 Troponin T 120 Minute 28.93 ng/L (0-10) H 07/28/22 19:40 Delta Troponin T 1.93 ABS# (0-10) 07/28/22 19:40 NT-Pro-B Natriuret Pep 375 pg/mL (0-125) H 07/28/22 17:37 Total Protein 6.5 g/dL (6.6-8.7) L 07/28/22 17:37 Albumin 3.8 g/dL (3.5-5.2) 07/28/22 17:37 Globulin 2.7 g/dL (1.3-4.6) 07/28/22 17:37 Influenza Type A Ag negative (Negative) 07/28/22 17:25 Influenza Type B Ag negative (Negative) 07/28/22 17:25 SARS-CoV-2 Ag (Rapid) negative (Negative) 07/28/22 17:25 EKG Data EKG 1: I personally reviewed and interpreted this EKG as follows: Interpretation: Resting EKG reveals a ventricular rate of 109 bpm. Appears to be consistent with sinus rhythm with prolonged NE interval. No acute ST-T wave changes noted. Computer generated interpretation: Chest X-Ray 07/28/22 16:54 IMPRESSION: 1. Mild cardiomegaly is noted. 2. No consolidative pulmonary infiltrate noted. Chest CTA 07/28/22 18:10 IMPRESSION: 1. The study is limited by patient respiratory motion artifact. 2. Cardiomegaly is present. 3. Mild mosaic attenuation throughout both lungs, which may indicate mild pulmonary edema versus small airways disease versus infection. 4. Mild mediastinal adenopathy, with lymph nodes measuring up to 13 mm short axis. EKG 2: I personally reviewed and interpreted this EKG as follows: Interpretation: Contemporaneous review of EKG reveals a ventricular rate of 180 bpm consistent with sinus tachycardia. She has a prolonged NE interval consistent with first-degree AV block. Normal QRS interval, normal corrected QT interval. Normal axis. No notable ST-T wave segments changes noted at this time Computer generated interpretation: Chest X-Ray 07/28/22 16:54 IMPRESSION: 1. Mild cardiomegaly is noted. 2. No consolidative pulmonary infiltrate noted. Chest CTA 07/28/22 18:10 IMPRESSION: 1. The study is limited by patient respiratory motion artifact. 2. Cardiomegaly is present. 3. Mild mosaic attenuation throughout both lungs, which may indicate mild pulmonary edema versus small airways disease versus infection. 4. Mild mediastinal adenopathy, with lymph nodes measuring up to 13 mm short axis. Discharge Plan Discharge Patient Disposition: Admitted As Inpatient Clinical Impression: Community acquired pneumonia, Diabetes mellitus, Atrial fibrillation, CKD (chronic kidney disease) Condition: Stable Coding Level of Care Code ED Documentation Coordinator for Gerson Morgan
[2022-07-28 17:15] VITALS: PULSE 81; RESP 16; O2SAT 90
[2022-07-28 17:56] LABS: Blood Gas Operator Identificat glc; Blood Gas Sample Site Brachial, left; Blood Gas Sample Type Arterial; Ionized Calcium Level - ABG 1.1 mmol/L (1.1-1.4); Oxygen Device NC
[2022-07-28 18:00] LABS: Arterial Blood Gas Hematocrit 48.7 % (37-47); Base Excess ABG 5.1 mmol/L (-2.0-2.0); Carboxyhemoglobin 1.6 %THgb (0.4-20.1); HCO3 ABG 23.9 mmol/L (22-26); HGB O2 Sat 91.9 % (95-100); Methemoglobin 0.3 % (0.4-1.5); Oxygen Saturation ABG 93.7; PO2 ABG 48.5 mmHg (80.0-100.0); Total Hemoglobin 15.9 g/dL (12-16)
[2022-07-28 18:02] LABS: ABG PH Result 7.65 (7.35-7.45)
[2022-07-28 18:07] LABS: Basophils % 0.3 %; Eosinophils # 0.2 10^3/uL (0.0-0.8); Hemoglobin 16.4 g/dL (11.5-15.3); Lymphocytes # 0.9 10^3/uL (0.8-4.8); Mean Corpuscular HGB Conc 32.2 g/dL (30.0-36.0); Mean Corpuscular Hemoglobin 27.7 pg (28.0-34.0); Mean Platelet Volume 10.8 fL (7.4-10.4); Monocytes # 0.6 10^3/uL (0.2-0.9); Monocytes % 5.7 %; Neutrophils % 82.5 %; Nucleated Red Blood Cells % 0 %; Platelet Count 290 10^3/cmm (130-400); Red Blood Count 5.93 10^6/uL (4.1-5.3); Red Cell Distribution Width 14.6 % (12.1-15.1); White Blood Count 10.1 10^3/uL (4.0-10.0)
--- NOTE | 2022-07-28 18:10 | CTR_ITS ---
PROCEDURE INFORMATION: Exam: CTA Chest With Contrast Exam date and time: 07/28/2022 9:54 PM Age: 66 years old Clinical indication: Other: Resp alkalosis; Additional info: Respiratory alkalosis with clear cxr TECHNIQUE: Imaging protocol: Computed tomographic angiography of the chest with contrast. 3D rendering (Not supervised by radiologist): MIP and/or 3D reconstructed images were created by the technologist. Radiation optimization: All CT scans at this facility use at least one of these dose optimization techniques: automated exposure control; mA and/or kV adjustment per patient size (includes targeted exams where dose is matched to clinical indication); or iterative reconstruction. Contrast material: OMNI 350; Contrast volume: 80 ml; Contrast route: INTRAVENOUS (IV); Other protocol: This patient has received 2 known CTs and 0 known cardiac nuclear medicine studies in the 12 months prior to the current study. COMPARISON: CT chest con [id number] 05/13/2022 5:48 PM RADIATION DOSE METRICS: Total DLP (mGy-cm): 500.17 FINDINGS: Limitations: The study is limited by patient respiratory motion artifact. Pulmonary arteries: Pulmonary arteries are normal in caliber. No filling defects are demonstrated. No evidence of pulmonary embolism. 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 Aorta: Mild atherosclerosis of the thoracic aorta. Ascending aorta measures 3.2 cm in diameter. No aortic dissection noted. Lungs: Mild mosaic attenuation throughout both lungs, which may indicate mild pulmonary edema versus small airways disease versus infection. Pleural spaces: No pneumothorax. No pleural effusion. Heart: Cardiomegaly is present. Coronary arteries: The coronary arteries demonstrate atherosclerotic calcifications. Lymph nodes: Mild lymphadenopathy noted. Mediastinal nodes measure up to 13 mm short axis. Bones/joints: Ankylosis of the thoracic spine. No acute osseous abnormality. No acute fracture or other acute osseous abnormality. Soft tissues: Unremarkable. CT/CT angio chest PE protcl [id number] IMPRESSION: 1. The study is limited by patient respiratory motion artifact. 2. Cardiomegaly is present. 3. Mild mosaic attenuation throughout both lungs, which may indicate mild pulmonary edema versus small airways disease versus infection. 4. Mild mediastinal adenopathy, with lymph nodes measuring up to 13 mm short axis.
[2022-07-28 18:28] LABS: Influenza A by IFA negative (Negative); Influenza B by IFA negative (Negative); SARS Covid-2 Antigen negative (Negative)
[2022-07-28 18:34] LABS: Troponin(5th) Baseline 27 ng/L (0-10)
[2022-07-28 18:43] LABS: Alanine Aminotransferase 17 U/L (0-33); Albumin Level 3.8 g/dL (3.5-5.2); Alkaline Phosphatase 104 U/L (35-105); Anion Gap 18.8 (5-19); Aspartate Amino Transferase 15 U/L (0-32); Blood Urea Nitrogen 26 mg/dL (8-23); Calcium 9.5 mg/dL (8.5-10.5); Carbon Dioxide 25 mmol/L (22-29); Chloride 96 mmol/L (98-107); Globulin 2.7 g/dL (1.3-4.6); Glomerular Filtration Rate 34.6 mL/min (90-130); Glucose 243 mg/dL (65-115); NT Pro B Type Natriuretic Pept 375 pg/mL (0-125); Osmolality Calculated 295 mOsm/kg (285-295); Potassium 3.8 mmol/L (3.5-5.1); Sodium 136 mmol/L (136-145); Total Bilirubin 0.6 mg/dL (0.15-1.2); Total Protein 6.5 g/dL (6.6-8.7)
--- NOTE | 2022-07-28 18:55 | ECG_ITS ---
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 Measurements Intervals [place] Rate: 108 P: 85 ME: 216 QRS: 60 QRSD: 95 T: 57 QT: 352 QTc: 472 Interpretive Statements SINUS TACHYCARDIA WITH FIRST DEGREE AV BLOCK WITH OCCASIONAL SUPRAVENTRICULAR PREMATURE COMPLEXES LOW QRS VOLTAGE IN PRECORDIAL LEADS [QRS DEFLECTION < 1.0 mV IN CHEST LEADS] MINIMAL ST DEPRESSION [0.025+ mV ST DEPRESSION] Compared to ECG 07/28/2022 17:00:05 First degree AV block now present Low QRS voltage now present ST (T wave) deviation now present Indeterminate axis no longer present Electronically Signed On 07-28-2022 21:57:14 UTILITIES AND MAINTENANCE SUPERVISOR by Seth Santillan M.D. [id number]
[2022-07-28] MEDS: LORazepam 2 mg/mL INJ 1 mL 0.5 MG IVP ×2 (18:56→19:47)
[2022-07-28 20:18] LABS: Troponin 5 2HR 28.93 ng/L (0-10)
[2022-07-28 20:29] LABS: Troponin 5 2HR Delta 1.93 ABS# (0-10)
[2022-07-28] MEDS: lactated ringers 1,000 ML 999 ML IV (20:56)
[2022-07-28] MEDS: cefTRIAXone 2,000 MG in sodium chloride 0.9% (plus) 50 ML 100 MG IV (20:58)
--- NOTE | 2022-07-28 23:18 | ECG_ITS ---
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 Measurements Intervals [place] Rate: 121 P: 0 TN: 0 QRS: 15 QRSD: 101 T: 15 QT: 333 QTc: 473 Interpretive Statements ATRIAL FLUTTER/TACHYCARDIA WITH RAPID VENTRICULAR RESPONSE INDETERMINATE AXIS LOW QRS VOLTAGE IN PRECORDIAL LEADS [QRS DEFLECTION < 1.0 mV IN CHEST LEADS] PATTERN CONSISTENT WITH PULMONARY DISEASE INCOMPLETE RIGHT BUNDLE BRANCH BLOCK [90+ ms QRS DURATION, TERMINAL R IN V1/V2, 40+ ms S IN I/aVL/V4/V5/V6] MODERATE ST DEPRESSION [0.05+ mV ST DEPRESSION] Compared to ECG 07/28/2022 19:32:51 Indeterminate axis now present Incomplete right bundle-branch block now present Sinus tachycardia no longer present First degree AV block no longer present ST (T wave) deviation still present Electronically Signed On 07-29-2022 4:41:57 INSPECTOR LINE by Seth Santillan M.D. [id number]
[2022-07-29] VITALS (12 sets, daily range): BP systolic 111–150; BP diastolic 50–85; PULSE 71–124; RESP 15–22; TEMP 36.7–37.3; O2SAT 92–99
[2022-07-29 00:07] LABS: Troponin 5 6HR 38.66 ng/L (0-10)
--- NOTE | 2022-07-29 00:20 | PM.HP ---
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 Patient states he initially started to have 1-2 episodes of diarrhea every hour, thereafter frequency increased and she is unable to be continent at this time. There has been no relief since she started. She has had a few episodes of vomiting but currently only feels nauseous. Did not notice a fever at home, however here she has a Tmax of 100.2 Fahrenheit. Denies any abdominal pain. She has been on antibiotics recently in April and May for diagnosis of pneumonia. She is not experienced any cough or worsening dyspnea. She has sick contacts at home, her granddaughter who is 6 years old had similar symptoms with diarrhea recently. Review of Systems General: Reports: 10 or more systems reviewed and unremarkable except in HPI and below Const: Denies: fever(s), chills or body aches Eyes: Denies: change in vision, blurry vision or photophobia ENMT: Reports: hoarseness; Denies: throat pain, enlarged tonsils, odynophagia or nasal congestion Card: Denies: chest pain, palpitations, irregular heart rhythm, edema, swelling of feet/ankles, lightheadedness, pre-syncope, dyspnea on exertion or orthopnea Resp: Denies: dyspnea, productive cough, non-productive cough, wheezing, stridor, pain on inspiration, change in phlegm color, hemoptysis or chest congestion GI: Denies: abdominal pain, nausea, vomiting, hematemesis, coffee ground emesis, dysphagia, heartburn, diarrhea, constipation, GI cramping, change in stool character, hematochezia or melena : Denies: flank pain, difficulty voiding, dysuria, urinary frequency, urinary urgency, urinary hesitancy or hematuria Musc: Denies: neck pain, back pain, extremity pain, joint swelling, joint warmth or deformity Neuro: Denies: headache(s), numbness in extremities, weakness in extremities, sensory changes, difficulty walking, frequent falls, dizziness, vertigo, behavioral changes, Slurred speech present or seizure-like activity Psych: Denies: anxiety, depression, suicidal ideation or homicidal ideation Endo: Denies: polyuria, polydipsia, tired all the time, cold intolerance or hot flashes David/Lymph: Denies: easy bruising or easy bleeding Medications/Allergies Home Medications Medication Instructions Recorded Confirmed Last Taken Type albuterol sulfate 90 mcg/actuation 2 puff inhalation Q6H PRN 06/30/19 07/28/22 07/27/22 History aerosol inhaler (ProAir HFA) Shortness Of Breath diltiazem HCl 120 mg 120 mg PO DAILY #90 caps 09/27/20 07/28/22 07/27/22 Rx capsule,extended release 24 hr cyclobenzaprine 10 mg tablet 10 mg PO TID PRN muscle spasm #30 01/23/22 07/28/22 07/27/22 Rx tabs flash glucose sensor (FreeStyle #1 ea 01/27/22 07/28/22 Unknown Rx Lou 14 Day Sensor kit) metoprolol tartrate 100 mg tablet 100 mg PO BID #60 tabs 01/27/22 07/28/22 07/27/22 Rx flash glucose sensor (FreeStyle #1 ea 02/03/22 07/28/22 Unknown Rx Lou 14 Day Sensor kit) cyanocobalamin (vitamin B-12) 1,000 mcg PO DAILY #30 tabs 02/05/22 07/28/22 07/27/22 Rx 1,000 mcg tablet (Vitamin B-12) allopurinol 300 mg tablet 300 mg PO DAILY #90 tabs 02/27/22 07/28/22 07/27/22 Rx insulin glargine 100 unit/mL 90 unit (0.9 mL) SUBCUT BID #80 mL 03/07/22 07/28/22 07/27/22 Rx subcutaneous solution (Lantus U-100 Insulin) acetaminophen 500 mg tablet 1,000 mg PO Q6H PRN Pain 05/11/22 07/28/22 07/27/22 History dulaglutide 0.75 mg/0.5 mL 0.75 mg SUBCUT Q7D 05/11/22 07/28/22 07/22/22 History subcutaneous pen injector (Trulicity) hydrocodone 5 mg-acetaminophen 325 1 tab PO BID PRN Pain 05/11/22 07/28/22 Unknown History mg tablet levothyroxine 50 mcg tablet 50 mcg PO DAILY 05/11/22 07/28/22 07/27/22 History nitroglycerin 0.4 mg sublingual 0.4 mg sublingual Q5M PRN Chest 05/11/22 07/28/22 Unknown History tablet (Nitrostat) Pain simvastatin 40 mg tablet 40 mg PO QPM 05/11/22 07/28/22 07/27/22 History furosemide 40 mg tablet 60 mg PO BID 30 days #90 tabs 05/15/22 07/28/22 07/27/22 Rx nystatin 100,000 unit/gram topical 1 applic topical BID #60 grams 05/16/22 07/28/22 07/27/22 Rx powder ipratropium 0.5 mg-albuterol 3 mg 3 ml inhalation Q6H PRN shortness 05/22/22 07/28/22 Unknown Rx (2.5 mg base)/3 mL nebulization of breath or wheezing #180 mL soln potassium chloride 20 mEq 20 meq PO BID #180 tabs 05/22/22 07/28/22 07/27/22 Rx tablet,extended release(part/cryst) pregabalin 50 mg capsule 50 mg PO BID #60 caps 05/22/22 07/28/22 07/27/22 Rx apixaban 5 mg tablet 5 mg PO BID #180 tabs 07/12/22 07/28/22 07/27/22 Rx buspirone 10 mg tablet 10 mg PO TID #90 tabs 07/27/22 07/28/22 07/27/22 Rx duloxetine 30 mg capsule,delayed 30 mg PO .every afternoon #90 caps 07/27/22 07/28/22 07/27/22 Rx release duloxetine 60 mg capsule,delayed 60 mg PO QAM #90 caps 07/27/22 07/28/22 07/27/22 Rx release lorazepam 0.5 mg tablet 0.5 mg PO BID PRN anxiety #60 tabs 07/27/22 07/28/22 Unknown Rx ondansetron HCl 4 mg tablet 4 mg PO Q8H PRN nausea and 07/28/22 07/28/22 Unknown Rx vomiting #30 tabs Allergies Allergy/AdvReac Type Severity Reaction Status Date / Time morphine Allergy Severe Quit Verified 07/28/22 17:23 breathing amiodarone Allergy ALGY-Anaphy Verified 07/28/22 17:23 laxis shellfish derived AdvReac Severe Hives & Verified 07/28/22 17:23 throat swells meperidine [From Demerol] AdvReac Intermediate Made N & V Verified 07/28/22 17:23 Penicillins AdvReac Intermediate RAsh Verified 07/28/22 17:23 PFSH Acute PFSH: Medical History Amiodarone pulmonary toxicity Atrial fibrillation CAD (coronary artery disease) Last echocardiogram 08/06 with EF of 50% Chronic pain She reports taking pain medicines and muscle relaxers for a recent back injury; she has chronic left leg pain. Chronic respiratory failure CKD (chronic kidney disease) Depression Diabetes mellitus Fibromyalgia Gout HTN (hypertension) Hypercholesteremia Hyperlipidemia Hypothyroidism Major depressive disorder, recurrent severe without psychotic features MRSA (methicillin resistant staph aureus) culture positive Psychiatric care Surgical History H/O cardiac radiofrequency ablation H/O section H/O eye surgery H/O left knee surgery History of back surgery History of carpal tunnel release History of coronary artery stent placement History of hysterectomy partial History of incision and drainage Right breast abscess Hx of cholecystectomy Family History Mother Cancer breast Stroke Brother Heart disease Asthma Cancer prostate Sister Heart disease Social History Smoking and tobacco status: never smoked Alcohol intake: never Housing: Other Details: Currently with her family Vitals/I&O/Wt Last Vital Signs Temp 100.2 F H 07/28/22 16:39 Pulse 105 H 07/29/22 00:05 Resp 18 07/29/22 00:05 BP 111/50 07/29/22 00:05 Pulse Ox 97 07/29/22 00:05 O2 Del Method 07/29/22 00:00 O2 Flow Rate 3 07/29/22 00:00 07/28/22 07/28/22 07/29/22 14:59 22:59 06:59 Intake Total 50 / 50 1000 / 1050 Balance 50 / 50 1000 / 1050 Weight last 48 hrs Weight 173.726 kg Physical Exam Narrative: General: No acute distress, AO x3 HEENT: PERRLA, pupils bilaterally equal and reactive, pallors not present Chest: Normal vesicular breath sounds, no added sounds, equal good air entry bilaterally CVS: S1-S2 regular, no murmurs, no tachycardia, no gallops, no rubs Abdomen: Soft, nontender, no organomegaly, bowel sounds present Neuro: No focal deficits, no facial deformity, AO x3, power 5/5 in all limbs Data 07/28/22 17:37 07/28/22 17:37 Other Labs: Radiology Impressions Chest X-Ray 07/28/22 16:54 IMPRESSION: 1. Mild cardiomegaly is noted. 2. No consolidative pulmonary infiltrate noted. Chest CTA 07/28/22 18:10 IMPRESSION: 1. The study is limited by patient respiratory motion artifact. 2. Cardiomegaly is present. 3. Mild mosaic attenuation throughout both lungs, which may indicate mild pulmonary edema versus small airways disease versus infection. 4. Mild mediastinal adenopathy, with lymph nodes measuring up to 13 mm short axis. Laboratory Results WBC 10.1 10^3/uL (4.0-10.0) H 07/28/22 17:37 RBC 5.93 10^6/uL (4.1-5.3) H 07/28/22 17:37 Hgb 16.4 g/dL (11.5-15.3) H 07/28/22 17:37 Hct 51.0 % (37.0-47.0) H 07/28/22 17:37 MCV 86.0 fl (81-99) 07/28/22 17:37 MCH 27.7 pg (28.0-34.0) L 07/28/22 17:37 MCHC 32.2 g/dL (30.0-36.0) 07/28/22 17:37 RDW 14.6 % (12.1-15.1) 07/28/22 17:37 Plt Count 290 10^3/cmm (130-400) 07/28/22 17:37 MPV 10.8 fL (7.4-10.4) H 07/28/22 17:37 Neut % (Auto) 82.5 % 07/28/22 17:37 Lymph % (Auto) 9.0 % 07/28/22 17:37 [place] % (Auto) 5.7 % 07/28/22 17:37 Eos % (Auto) 2.0 % 07/28/22 17:37 Baso % (Auto) 0.3 % 07/28/22 17:37 Neut # (Auto) 8.30 10^3/uL (1.8-7.7) H 07/28/22 17:37 Lymph # (Auto) 0.9 10^3/uL (0.8-4.8) 07/28/22 17:37 [place] # (Auto) 0.6 10^3/uL (0.2-0.9) 07/28/22 17:37 Eos # (Auto) 0.2 10^3/uL (0.0-0.8) 07/28/22 17:37 Baso # (Auto) 0.0 10^3/uL (0.0-0.1) 07/28/22 17:37 Nucleated RBC % (auto) 0 % 07/28/22 17:37 Nucleated RBCs # 0.0 /100WBC 07/28/22 17:37 Specimen Type Arterial 07/28/22 17:45 Sample Site Brachial, left 07/28/22 17:45 ABG pH 7.65 (7.35-7.45) H* 07/28/22 17:45 ABG pCO2 22.0 mmHg (35-45) L 07/28/22 17:45 ABG pO2 48.5 mmHg (80.0-100.0) L 07/28/22 17:45 ABG HCO3 23.9 mmol/L (22-26) 07/28/22 17:45 ABG O2 Saturation 93.7 07/28/22 17:45 ABG Base Excess 5.1 mmol/L (-2.0-2.0) H 07/28/22 17:45 [place] Test N/a 07/28/22 17:45 A-a O2 Gradient 20.0 mmHg (5-10) H 07/28/22 17:45 Hematocrit 48.7 % (37-47) H 07/28/22 17:45 Hgb O2 Saturation 91.9 % (95-100) L 07/28/22 17:45 Carboxyhemoglobin 1.6 %THgb (0.4-20.1) 07/28/22 17:45 Methemoglobin 0.3 % (0.4-1.5) L 07/28/22 17:45 Total Hemoglobin 15.9 g/dL (12-16) 07/28/22 17:45 Sodium 135.0 mmol/L (131-143) 07/28/22 17:45 Potassium 4.0 mmol/L (3.5-5.0) 07/28/22 17:45 Glucose 245.0 mg/dL (70-115) H 07/28/22 17:45 Ionized Calcium 1.1 mmol/L (1.1-1.4) 07/28/22 17:45 O2 Delivery Device Nc 07/28/22 17:45 O2 Liters/Min 3.0 % 07/28/22 17:45 FiO2 32.0 % 07/28/22 17:45 Microwave Supervisor ID glc 07/28/22 17:45 Sodium 136 mmol/L (136-145) 07/28/22 17:37 Potassium 3.8 mmol/L (3.5-5.1) 07/28/22 17:37 Chloride 96 mmol/L (98-107) L 07/28/22 17:37 Carbon Dioxide 25 mmol/L (22-29) 07/28/22 17:37 Anion Gap 18.8 (5-19) 07/28/22 17:37 BUN 26 mg/dL (8-23) H 07/28/22 17:37 Creatinine 1.5 mg/dL (0.5-0.9) H 07/28/22 17:37 GFR Calculation 34.6 mL/min (90-130) L 07/28/22 17:37 Glucose 243 mg/dL (65-115) H 07/28/22 17:37 POC Glucose 166 mg/dL (70-110) H 07/29/22 06:24 Calculated Osmolality 295 mOsm/kg (285-295) 07/28/22 17:37 Lactate 3.0 mmol/L (0.5-2.2) H 07/28/22 17:37 Calcium 9.5 mg/dL (8.5-10.5) 07/28/22 17:37 Total Bilirubin 0.6 mg/dL (0.15-1.2) 07/28/22 17:37 AST 15 U/L (0-32) 07/28/22 17:37 ALT 17 U/L (0-33) 07/28/22 17:37 Alkaline Phosphatase 104 U/L (35-105) 07/28/22 17:37 Troponin T Baseline 27 ng/L (0-10) H 07/28/22 17:37 Troponin T 120 Minute 28.93 ng/L (0-10) H 07/28/22 19:40 Delta Troponin T 1.93 ABS# (0-10) 07/28/22 19:40 Troponin T Hi Sens 6Hr 38.66 ng/L (0-10) H 07/28/22 23:45 Troponin T Hi Sens 6Hr Delta 11.66 ng/L (0-12) 07/28/22 23:45 NT-Pro-B Natriuret Pep 375 pg/mL (0-125) H 07/28/22 17:37 Total Protein 6.5 g/dL (6.6-8.7) L 07/28/22 17:37 Albumin 3.8 g/dL (3.5-5.2) 07/28/22 17:37 Globulin 2.7 g/dL (1.3-4.6) 07/28/22 17:37 Influenza Type A Ag negative (Negative) 07/28/22 17:25 Influenza Type B Ag negative (Negative) 07/28/22 17:25 SARS-CoV-2 Ag (Rapid) negative (Negative) 07/28/22 17:25 Micro: Microbiology 07/28/22 17:51 Blood Culture - Preliminary Blood SPECIMEN COLLECTED 07/28/22 17:45 Blood Culture - Preliminary Blood SPECIMEN COLLECTED A&P Assessment and plan (1) Diarrhea: Patient presenting today with multiple episodes of diarrhea leading up to incontinence. Also has had nausea vomiting. Feels generalized weakness and fatigue. Has a low-grade fever of 100.2 currently. CTA of the chest was performed due to noted respiratory alkalosis on ABG, negative for PE, however shows mosaic pattern bilaterally without any gross consolidation. She has recently had sick contacts by way of grandchild with similar complaints. Suspect that her symptoms may be related to acute viral GI illness versus possibility of C. difficile given patient has been on antibiotics recently for a diagnosis of pneumonia. Negative for COVID and influenza on rapid testing Will check C. difficile PCR and enteric bacterial panel. As needed Zofran for management of nausea and vomiting. Currently abdominal exam is benign, will hold off on abdominal imaging for now (2) Amiodarone pulmonary toxicity: O2 requirements currently at baseline Denies dyspnea, chest pain currently lower suspcion for pneumonia, however will keep on CTX and azithromycin for now while pending infectious w/up. Attestations Medical Necessity Statement*: >2midnight stay anticipated Coding Level of Care Code Acute Code for Chg Fwd Moderate MDM includes number and complexity of problems actively addressed during encounter, amount and/or complexity of data reviewed/ordered and described risk of complication, morbidity or mortality of management as documented Diagnoses Diarrhea R19.7 Amiodarone pulmonary toxicity J98.4; T46.2X5A
[2022-07-29 00:22] LABS: Troponin 5 6HR Delta 11.66 ng/L (0-12)
[2022-07-29] MEDS: cefTRIAXone 1,000 MG in sodium chloride 0.9% (plus) 50 ML 100 MG IV (00:55)
--- NOTE | 2022-07-29 01:48 | ECG_ITS ---
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 Measurements Intervals Beccaria Rate: 125 P: 0 IA: 0 QRS: 76 QRSD: 106 T: 43 QT: 341 QTc: 493 Interpretive Statements ATRIAL FIBRILLATION WITH RAPID VENTRICULAR RESPONSE ST DEPRESSION, CONSIDER SUBENDOCARDIAL INJURY [0.1+ mV ST DEPRESSION] Compared to ECG 07/28/2022 23:18:41 Atrial flutter no longer present Indeterminate axis no longer present Incomplete right bundle-branch block no longer present ST (T wave) deviation still present Electronically Signed On 07-29-2022 4:41:11 PRINTED CIRCUIT PHOTOGRAPHER by Seth Santillan M.D. [id number]
[2022-07-29] MEDS: metoprolol tartrate 1 mg/1 mL SDV 5 mL 5 MG IVP (02:15)
[2022-07-29] MEDS: metoprolol tartrate 50 mg Tablet 100 MG PO ×2 (03:02→18:04)
[2022-07-29] MEDS: duloxetine 60 mg Capsule PO (05:53)
[2022-07-29] MEDS: ondansetron 4 MG Tablet PO ×2 (05:54→16:25)
[2022-07-29 06:28] LABS: Glucose Point of Care 166 mg/dL (70-110)
[2022-07-29] MEDS: insulin lispro 100 unit/1 mL SUBCUT ×4 (08:28→21:02)
[2022-07-29] MEDS: dilTIAZem ER (24HR) 120 mg Capsule PO (08:31)
[2022-07-29] MEDS: azithromycin 250 mg Tablet 500 MG PO (08:31)
[2022-07-29] MEDS: pregabalin 50 mg Capsule PO ×2 (08:31→18:04)
[2022-07-29] MEDS: allopurinol 300 mg Tablet PO (08:31)
[2022-07-29] MEDS: BuSPIRONE 10 mg Tablet PO ×3 (08:31→21:02)
[2022-07-29] MEDS: apixaban 5 mg Tablet PO ×2 (08:31→18:04)
[2022-07-29] MEDS: pantoprazole DR 40 mg Tablet PO (08:31)
[2022-07-29] MEDS: levothyroxine 50 mcg Tablet PO (08:31)
--- NOTE | 2022-07-29 10:21 | CTR_ITS ---
PROCEDURE INFORMATION: Exam: CT Abdomen And Pelvis Without Contrast Exam date and time: 07/29/2022 10:52 AM Age: 66 years old Clinical indication: Diarrhea TECHNIQUE: Imaging protocol: Computed tomography of the abdomen and pelvis without contrast. Radiation optimization: All CT scans at this facility use at least one of these dose optimization techniques: automated exposure control; mA and/or kV adjustment per patient size (includes targeted exams where dose is matched to clinical indication); or iterative reconstruction. Other protocol: This patient has received 3 known CTs and 0 known cardiac nuclear medicine studies in the 12 months prior to the current study. COMPARISON: CT abdomen pelvis con [id number] 02/10/2021 8:17 AM RADIATION DOSE METRICS: Total DLP (mGy-cm): 1181.97 FINDINGS: Lungs: Subsegmental atelectasis at the left base. The heart is enlarged. No pericardial effusion. No hiatal hernia. Liver: The liver is enlarged measuring 21.9 cm. Gallbladder and bile ducts: The gallbladder has been removed. Pancreas: The pancreas is unremarkable. Spleen: The spleen is enlarged measuring 13.4 cm. Adrenal glands: The adrenal glands are unremarkable. Kidneys and ureters: There is retained contrast in the renal cortices suggesting contrast nephropathy. No hydronephrosis. Subcentimeter renal hypodensities are too small to accurately characterize and require no follow-up. Stomach and bowel: There are numerous nondistended fluid-filled loops of small bowel. There is fluid noted throughout the colon. These findings are nonspecific but can be seen with enterocolitis or other causes of watery diarrhea. Appendix: The appendix is unremarkable. Intraperitoneal space: No free intraperitoneal air is seen. Vasculature: No abdominal aortic aneurysm. Lymph nodes: A periportal lymph node measures 1.0 x 2.0 cm. Urinary bladder: The bladder wall is thickened. This may reflect underdistention. Correlate with urinalysis. Status post hysterectomy. Reproductive: See Urinary bladder finding. Bones/joints: No acute fracture is identified. Soft tissues: Small fat containing umbilical hernia. CT/CT abdomen pelvis con [id number] IMPRESSION: 1. Numerous nondistended fluid-filled loops of small bowel. There is fluid noted throughout the colon. These findings are nonspecific but can be seen with enterocolitis or other causes of watery diarrhea. 2. The bladder wall is thickened. This may reflect underdistention. Correlate with urinalysis. 3. Hepatosplenomegaly with periportal lymphadenopathy. 4. Retained contrast in the renal cortices suggesting contrast nephropathy. 5. Cardiomegaly. COMMENTS: Consistent with the [employer]'s Incidental Findings Committee white paper (J Am [employer]if Radiol 2018): Any incidental renal lesion less than 1 cm or classified as too small to characterize, or any incidental cystic renal lesion characterized as simple-appearing, is likely benign. No follow-up imaging is recommended for these lesions per consensus recommendations based on imaging criteria.
[2022-07-29 10:45] LABS: Glucose Point of Care 162 mg/dL (70-110)
--- NOTE | 2022-07-29 16:22 | PM.PN ---
Subjective Subjective: Admitted overnight. H&P and labs appreciated. On examination patient laying comfortably in bed. States she is feeling better. Denies any nausea, vomiting, headache. On baseline 2 L oxygen supplementation. Patient has not had any further diarrhea since admission. Vitals/I&O/Wt Last Vital Signs Temp 98.2 F 07/29/22 12:00 Pulse 107 H 07/29/22 12:00 Resp 15 07/29/22 12:00 BP 139/76 07/29/22 12:00 Pulse Ox 93 07/29/22 12:00 O2 Del Method 07/29/22 12:00 O2 Flow Rate 2 07/29/22 12:00 07/29/22 07/29/22 07/29/22 06:59 14:59 22:59 Intake Total 1530 / 1580 0 / 0 Output Total 600 / 600 400 / 400 Balance 930 / 980 -400 / -400 Weight last 48 hrs Weight 131.043 kg Weight 130.725 kg Weight 173.726 kg Physical Exam Narrative: General: No acute distress, AO x3 HEENT: PERRLA, pupils bilaterally equal and reactive, pallors not present Chest: Normal vesicular breath sounds, no added sounds, equal good air entry bilaterally CVS: S1-S2 regular, no murmurs, no tachycardia, no gallops, no rubs Abdomen: Soft, nontender, no organomegaly, bowel sounds present Neuro: No focal deficits, no facial deformity, AO x3, power 5/5 in all limbs Data 07/28/22 17:37 07/28/22 17:37 Micro: Microbiology 07/28/22 17:51 Blood Culture - Preliminary Blood SPECIMEN COLLECTED 07/28/22 17:45 Blood Culture - Preliminary Blood SPECIMEN COLLECTED A&P Assessment and plan (1) Diarrhea: No further episodes for now. High suspicion for C. difficile as patient has been on multiple antibiotics as an outpatient. Cannot rule out viral gastroenteritis as well as patient has a sick contact. Check CT abdomen pelvis without contrast. Stool studies awaited. (2) Amiodarone pulmonary toxicity: O2 requirements currently at baseline Denies dyspnea, chest pain currently lower suspcion for pneumonia, however will keep on CTX and azithromycin for now while pending infectious w/up. (3) CAD (coronary artery disease): (4) Diabetes type 2, uncontrolled: (5) CKD (chronic kidney disease): Creatinine at baseline. Continue to monitor BMP daily. (6) HTN (hypertension): Goal blood pressure less than 140 over 90 mmHg. Continue with home antihypertensives. Plan Other chronic conditions. Continue other chronic medications including Eliquis, statin, Cymbalta, pregabalin. Full code. Cardiac diet. Protonix for PUD prophylaxis Eliquis will suffice for DVT prophylaxis Attestations Medical Necessity Statement*: Requires further hospitalization for management of diarrhea leading to dehydration and Straight Forward/Low Time for a total of 30 minutes, includes reviewing past or interval history, examining/interviewing patient, placing orders, counseling patient/family/other support, updating patient/family/other support, discussing plan of care with staff, communicating with other healthcare providers, documenting encounter and coordinating care Diagnoses Diarrhea R19.7 Amiodarone pulmonary toxicity J98.4; T46.2X5A CAD (coronary artery disease) I25.10 Diabetes type 2, uncontrolled CKD (chronic kidney disease) N18.9 HTN (hypertension) I10
[2022-07-29 16:32] LABS: Glucose Point of Care 223 mg/dL (70-110)
[2022-07-29] MEDS: atorvastatin 40 mg Tablet 20 MG PO (18:04)
[2022-07-29] MEDS: duloxetine 30 mg Capsule PO (18:04)
[2022-07-29 20:59] LABS: Glucose Point of Care 250 mg/dL (70-110)
[2022-07-30] VITALS: BP 147/52; PULSE 80; RESP 16; TEMP 37.1; O2SAT 96
[2022-07-30] MEDS: cefTRIAXone 1,000 MG in sodium chloride 0.9% (plus) 50 ML 100 MG IV (01:04)
[2022-07-30 01:37] LABS: Add Urine Microscopic? YES; Bilirubin Urine Neg (Negative); Blood Urine 2+ (Negative); Glucose Urine UA Norm (Normal); Ketones Urine Negative (Negative); Leukocyte Esterase Urine 2+ (Negative); Nitrate Urine Negative (Negative); Protein Urine 2+ (Negative); Specific Gravity, Urine 1.015 (1.005-1.030); Urine Appearance Hazy (CLEAR); Urine Color Yellow (Yellow); Urobilinogen Urine Neg (Negative); pH Urine 5 (5-7)
[2022-07-30 01:40] LABS: WBC Urine 15-25 /hpf (0-5)
[2022-07-30 01:41] LABS: Add Urine Culture? No; Bacteria Urine 2+ /hpf; Mucus Urine 1+ /hpf; Squamous Epithelial Cell Urine 55-80 /hpf (0-5)
[2022-07-30 04:00] VITALS: BP 128/78; PULSE 74; RESP 18; TEMP 36.8; O2SAT 97
[2022-07-30 04:41] LABS: Basophils % 0.5 %; Eosinophils # 0.6 10^3/uL (0.0-0.8); Eosinophils % 7.7 %; Hematocrit 44.5 % (37.0-47.0); Hemoglobin 14.2 g/dL (11.5-15.3); Lymphocytes # 1.6 10^3/uL (0.8-4.8); Lymphocytes % 20.3 %; Mean Corpuscular HGB Conc 31.9 g/dL (30.0-36.0); Mean Corpuscular Hemoglobin 28.2 pg (28.0-34.0); Mean Corpuscular Volume 88.3 fl (81-99); Mean Platelet Volume 10.9 fL (7.4-10.4); Monocytes % 12.7 %; Neutrophils # 4.62 10^3/uL (1.8-7.7); Neutrophils % 58.3 %; Nucleated Red Blood Cells % 0 %; Platelet Count 237 10^3/cmm (130-400); Red Blood Count 5.04 10^6/uL (4.1-5.3); White Blood Count 7.9 10^3/uL (4.0-10.0)
[2022-07-30 05:04] LABS: Alanine Aminotransferase 17 U/L (0-33); Albumin Level 3.4 g/dL (3.5-5.2); Alkaline Phosphatase 87 U/L (35-105); Anion Gap 17.5 (5-19); Aspartate Amino Transferase 18 U/L (0-32); Blood Urea Nitrogen 25 mg/dL (8-23); Calcium 8.2 mg/dL (8.5-10.5); Carbon Dioxide 24 mmol/L (22-29); Chloride 97 mmol/L (98-107); Globulin 2.5 g/dL (1.3-4.6); Glomerular Filtration Rate 32.2 mL/min (90-130); Glucose 148 mg/dL (65-115); Osmolality Calculated 287 mOsm/kg (285-295); Potassium 3.5 mmol/L (3.5-5.1); Sodium 135 mmol/L (136-145); Total Bilirubin 0.2 mg/dL (0.15-1.2); Total Protein 5.9 g/dL (6.6-8.7)
[2022-07-30 06:00] VITALS: PULSE 77
[2022-07-30] MEDS: duloxetine 60 mg Capsule PO (06:07)
[2022-07-30 08:00] VITALS: BP 129/75; PULSE 74; PULSE 75; RESP 16; TEMP 36.7; O2SAT 95; O2SAT 97
[2022-07-30] MEDS: ondansetron 2 mg/ML SDV 2 mL 4 MG IVP (09:27)
[2022-07-30] MEDS: azithromycin 250 mg Tablet 500 MG PO (09:33)
[2022-07-30] MEDS: apixaban 5 mg Tablet PO (09:33)
[2022-07-30] MEDS: dilTIAZem ER (24HR) 120 mg Capsule PO (09:33)
[2022-07-30] MEDS: pregabalin 50 mg Capsule PO (09:33)
[2022-07-30] MEDS: BuSPIRONE 10 mg Tablet PO (09:33)
[2022-07-30] MEDS: allopurinol 300 mg Tablet PO (09:33)
[2022-07-30] MEDS: pantoprazole DR 40 mg Tablet PO (09:34)
[2022-07-30] MEDS: levothyroxine 50 mcg Tablet PO (09:34)
[2022-07-30] MEDS: metoprolol tartrate 50 mg Tablet 100 MG PO (09:34)
[2022-07-30] MEDS: insulin lispro 100 unit/1 mL SUBCUT (09:35)
[2022-07-30 09:37] LABS: Glucose Point of Care 215 mg/dL (70-110)
--- NOTE | 2022-07-30 10:34 | PM.DCS ---
Discharge Providers Date of Admission: 07/28/22 23:16 Date of Discharge: July 30, 2022 Attending Provider at Admission: Lela Arambula MD Attending Provider at Discharge: Saleem Sharpe MD Primary Care Provider: Farhat Acosta MD Diagnoses at Discharge Discharge Diagnosis (1) Diarrhea: Status: Acute (2) Amiodarone pulmonary toxicity: Status: Acute (3) CAD (coronary artery disease): Status: Acute Permanent problem details: Last echocardiogram 08/06 with EF of 50% (4) Diabetes type 2, uncontrolled: Status: Acute (5) CKD (chronic kidney disease): Status: Acute (6) HTN (hypertension): Status: Acute Reason for Visit Reason for Visit: SOB Hospital Course Hospital Course Shauna Sena is a 66 year old female with a past medical history of amiodarone induced lung toxicity, 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 Patient states he initially started to have 1-2 episodes of diarrhea every hour, thereafter frequency increased and she is unable to be continent at this time.? There has been no relief since she started.? She has had a few episodes of vomiting but currently only feels nauseous.? Did not notice a fever at home, however here she has a Tmax of 100.2 Fahrenheit.? Denies any abdominal pain. She has been on antibiotics recently in April and May for diagnosis of pneumonia. She is not experienced any cough or worsening dyspnea. She has sick contacts at home, her granddaughter who is 6 years old had similar symptoms with diarrhea recently. Patient was admitted to hospital further evaluation and management of diarrhea. She was started on IV hydration and IV antibiotics. CT abdomen pelvis was done which is consistent with colitis. She did not have any further episodes of diarrhea during hospitalization and stool studies could not be done. Patient started feeling better after IV hydration and has been discharged in hemodynamically stable condition on oral ciprofloxacin and Flagyl for next 1 week. She is to see her primary care provider within next 1 week. Physical Exam Narrative: General: No acute distress, AO x3 HEENT: PERRLA, pupils bilaterally equal and reactive, pallors not present Chest: Normal vesicular breath sounds, no added sounds, equal good air entry bilaterally CVS: S1-S2 regular, no murmurs, no tachycardia, no gallops, no rubs Abdomen: Soft, nontender, no organomegaly, bowel sounds present Neuro: No focal deficits, no facial deformity, AO x3, power 5/5 in all limbs Discharge Data Studies Completed and Pending Completed Studies During Hospitalization Category Date Time Status CT abdomen pelvis wo con [id number] Routine Cat Scan 07/29/22 10:21 Completed CTA chest [CT angio chest PE protcl [id number]] Stat Cat Scan 07/28/22 18:10 Completed XR chest 1V portable [id number] Stat Exams 07/28/22 16:54 Completed Pending at discharge Category Date Time Status Blood Culture Stat Lab 07/28/22 17:51 Results C DIFF [Clostridioides Difficile PCR] Routine Lab 07/29/22 08:40 Uncollected Enteric Bacterial Panel by PCR Routine Lab 07/29/22 08:40 Uncollected Urine Culture Stat Lab 07/29/22 06:55 Received Radiology Impressions Chest X-Ray 07/28/22 16:54 IMPRESSION: 1. Mild cardiomegaly is noted. 2. No consolidative pulmonary infiltrate noted. Chest CTA 07/28/22 18:10 IMPRESSION: 1. The study is limited by patient respiratory motion artifact. 2. Cardiomegaly is present. 3. Mild mosaic attenuation throughout both lungs, which may indicate mild pulmonary edema versus small airways disease versus infection. 4. Mild mediastinal adenopathy, with lymph nodes measuring up to 13 mm short axis. Abdomen/Pelvis CT 07/29/22 10:21 IMPRESSION: 1. Numerous nondistended fluid-filled loops of small bowel. There is fluid noted throughout the colon. These findings are nonspecific but can be seen with enterocolitis or other causes of watery diarrhea. 2. The bladder wall is thickened. This may reflect underdistention. Correlate with urinalysis. 3. Hepatosplenomegaly with periportal lymphadenopathy. 4. Retained contrast in the renal cortices suggesting contrast nephropathy. 5. Cardiomegaly. COMMENTS: Consistent with the [employer]'s Incidental Findings Committee white paper (J [employer]iol 2018): Any incidental renal lesion less than 1 cm or classified as too small to characterize, or any incidental cystic renal lesion characterized as simple-appearing, is likely benign. No follow-up imaging is recommended for these lesions per consensus recommendations based on imaging criteria. Laboratory Results WBC 7.9 10^3/uL (4.0-10.0) 07/30/22 04:02 RBC 5.04 10^6/uL (4.1-5.3) 07/30/22 04:02 Hgb 14.2 g/dL (11.5-15.3) 07/30/22 04:02 Hct 44.5 % (37.0-47.0) 07/30/22 04:02 MCV 88.3 fl (81-99) 07/30/22 04:02 MCH 28.2 pg (28.0-34.0) 07/30/22 04:02 MCHC 31.9 g/dL (30.0-36.0) 07/30/22 04:02 RDW 15.0 % (12.1-15.1) 07/30/22 04:02 Plt Count 237 10^3/cmm (130-400) 07/30/22 04:02 MPV 10.9 fL (7.4-10.4) H 07/30/22 04:02 Neut % (Auto) 58.3 % 07/30/22 04:02 Lymph % (Auto) 20.3 % 07/30/22 04:02 [place] % (Auto) 12.7 % 07/30/22 04:02 Eos % (Auto) 7.7 % 07/30/22 04:02 Baso % (Auto) 0.5 % 07/30/22 04:02 Neut # (Auto) 4.62 10^3/uL (1.8-7.7) 07/30/22 04:02 Lymph # (Auto) 1.6 10^3/uL (0.8-4.8) 07/30/22 04:02 [place] # (Auto) 1.0 10^3/uL (0.2-0.9) H 07/30/22 04:02 Eos # (Auto) 0.6 10^3/uL (0.0-0.8) 07/30/22 04:02 Baso # (Auto) 0.0 10^3/uL (0.0-0.1) 07/30/22 04:02 Nucleated RBC % (auto) 0 % 07/30/22 04:02 Nucleated RBCs # 0.0 /100WBC 07/30/22 04:02 Specimen Type Arterial 07/28/22 17:45 Sample Site Brachial, left 07/28/22 17:45 ABG pH 7.65 (7.35-7.45) H* 07/28/22 17:45 ABG pCO2 22.0 mmHg (35-45) L 07/28/22 17:45 ABG pO2 48.5 mmHg (80.0-100.0) L 07/28/22 17:45 ABG HCO3 23.9 mmol/L (22-26) 07/28/22 17:45 ABG O2 Saturation 93.7 07/28/22 17:45 ABG Base Excess 5.1 mmol/L (-2.0-2.0) H 07/28/22 17:45 [place] Test N/a 07/28/22 17:45 A-a O2 Gradient 20.0 mmHg (5-10) H 07/28/22 17:45 Hematocrit 48.7 % (37-47) H 07/28/22 17:45 Hgb O2 Saturation 91.9 % (95-100) L 07/28/22 17:45 Carboxyhemoglobin 1.6 %THgb (0.4-20.1) 07/28/22 17:45 Methemoglobin 0.3 % (0.4-1.5) L 07/28/22 17:45 Total Hemoglobin 15.9 g/dL (12-16) 07/28/22 17:45 Sodium 135.0 mmol/L (131-143) 07/28/22 17:45 Potassium 4.0 mmol/L (3.5-5.0) 07/28/22 17:45 Glucose 245.0 mg/dL (70-115) H 07/28/22 17:45 Ionized Calcium 1.1 mmol/L (1.1-1.4) 07/28/22 17:45 O2 Delivery Device Nc 07/28/22 17:45 O2 Liters/Min 3.0 % 07/28/22 17:45 FiO2 32.0 % 07/28/22 17:45 Dramatic Teacher ID glc 07/28/22 17:45 Sodium 135 mmol/L (136-145) L 07/30/22 04:02 Potassium 3.5 mmol/L (3.5-5.1) 07/30/22 04:02 Chloride 97 mmol/L (98-107) L 07/30/22 04:02 Carbon Dioxide 24 mmol/L (22-29) 07/30/22 04:02 Anion Gap 17.5 (5-19) 07/30/22 04:02 BUN 25 mg/dL (8-23) H 07/30/22 04:02 Creatinine 1.6 mg/dL (0.5-0.9) H 07/30/22 04:02 GFR Calculation 32.2 mL/min (90-130) L 07/30/22 04:02 Glucose 148 mg/dL (65-115) H 07/30/22 04:02 POC Glucose 215 mg/dL (70-110) H 07/30/22 09:34 Calculated Osmolality 287 mOsm/kg (285-295) 07/30/22 04:02 Lactate 3.0 mmol/L (0.5-2.2) H 07/28/22 17:37 Calcium 8.2 mg/dL (8.5-10.5) L 07/30/22 04:02 Total Bilirubin 0.2 mg/dL (0.15-1.2) 07/30/22 04:02 AST 18 U/L (0-32) 07/30/22 04:02 ALT 17 U/L (0-33) 07/30/22 04:02 Alkaline Phosphatase 87 U/L (35-105) 07/30/22 04:02 Troponin T Baseline 27 ng/L (0-10) H 07/28/22 17:37 Troponin T 120 Minute 28.93 ng/L (0-10) H 07/28/22 19:40 Delta Troponin T 1.93 ABS# (0-10) 07/28/22 19:40 Troponin T Hi Sens 6Hr 38.66 ng/L (0-10) H 07/28/22 23:45 Troponin T Hi Sens 6Hr Delta 11.66 ng/L (0-12) 07/28/22 23:45 NT-Pro-B Natriuret Pep 375 pg/mL (0-125) H 07/28/22 17:37 Total Protein 5.9 g/dL (6.6-8.7) L 07/30/22 04:02 Albumin 3.4 g/dL (3.5-5.2) L 07/30/22 04:02 Globulin 2.5 g/dL (1.3-4.6) 07/30/22 04:02 Urine Color Yellow (Yellow) 07/30/22 01:02 Urine Appearance Hazy (CLEAR) A 07/30/22 01:02 Urine pH 5 (5-7) 07/30/22 01:02 Ur Specific [place] 1.015 (1.005-1.030) 07/30/22 01:02 Urine Protein 2+ (Negative) H 07/30/22 01:02 Urine Glucose (UA) Norm (Normal) 07/30/22 01:02 Urine Ketones Negative (Negative) 07/30/22 01:02 Urine Blood 2+ (Negative) H 07/30/22 01:02 Urine Nitrate Negative (Negative) 07/30/22 01:02 Urine Bilirubin Neg (Negative) 07/30/22 01:02 Urine Urobilinogen Neg mg/dL (Negative) 07/30/22 01:02 Ur Leukocyte Esterase 2+ (Negative) H 07/30/22 01:02 Urine RBC 10-15 /hpf (0-2) H 07/30/22 01:02 Urine WBC 15-25 /hpf (0-5) H 07/30/22 01:02 Ur Squamous Epith Cells 55-80 /hpf (0-5) H 07/30/22 01:02 Amorphous Sediment Not Reportable 07/30/22 01:02 Urine Bacteria 2+ /hpf (NONE) H 07/30/22 01:02 Urine Mucus 1+ /hpf 07/30/22 01:02 Influenza Type A Ag negative (Negative) 07/28/22 17:25 Influenza Type B Ag negative (Negative) 07/28/22 17:25 SARS-CoV-2 Ag (Rapid) negative (Negative) 07/28/22 17:25 Vitals Last Vital Signs Temp 98.1 F 07/30/22 08:00 Pulse 74 07/30/22 08:00 Resp 16 07/30/22 08:00 BP 129/75 07/30/22 08:00 Pulse Ox 95 07/30/22 08:00 O2 Del Method 07/30/22 08:00 O2 Flow Rate 2 07/30/22 00:00 Discharge Plan Discharge Patient Disposition: Home Condition: Stable Prescriptions: New pantoprazole 40 mg Tablet,Delayed Release (Dr/Ec) 40 mg PO DAILY Qty: 14 0RF Cipro 500 mg tablet 500 mg PO BID Qty: 14 0RF Flagyl 375 mg capsule 375 mg PO BID 7 Days Qty: 14 0RF Continued albuterol sulfate [ProAir HFA] 90 mcg/actuation HFA aerosol inhaler 2 puff INHALATION Q6H PRN (Reason: Shortness Of Breath) Lantus U-100 Insulin 100 unit/mL solution 90 unit SUBCUT BID Qty: 80 6RF potassium chloride 20 mEq tablet,ER particles/crystals 20 meq PO BID Qty: 180 3RF ipratropium-albuterol 0.5 mg-3 mg(2.5 mg base)/3 mL solution for nebulization 3 ml inhalation Q6H PRN (Reason: shortness of breath or wheezing) Qty: 180 3RF pregabalin 50 mg capsule 50 mg PO BID Qty: 60 2RF duloxetine 60 mg capsule,delayed release(DR/EC) 60 mg PO QAM Qty: 90 0RF Rx Instructions: Take one capsule by mouth every morning duloxetine 30 mg capsule,delayed release(DR/EC) 30 mg PO .every afternoon Qty: 90 0RF Rx Instructions: Take one capsule by mouth every afternoon buspirone 10 mg tablet 10 mg PO TID Qty: 90 2RF Rx Instructions: Take one tablet morning, afternoon, and evening lorazepam 0.5 mg tablet 0.5 mg PO BID PRN (Reason: anxiety) Qty: 60 2RF (DME) FreeStyle Lou 14 Day Sensor Kit See Rx Instructions .Route Qty: 1 0RF Rx Instructions: As directed metoprolol tartrate 100 mg tablet 100 mg PO BID Qty: 60 6RF (DME) FreeStyle Lou 14 Day Sensor Kit See Rx Instructions .Route Qty: 1 0RF Rx Instructions: As directed diltiazem HCl 120 mg capsule,extended release 24hr 120 mg PO DAILY Qty: 90 0RF cyclobenzaprine 10 mg tablet 10 mg PO TID PRN (Reason: muscle spasm) Qty: 30 2RF cyanocobalamin (vitamin B-12) [Vitamin B-12] 1,000 mcg tablet 1,000 mcg PO DAILY Qty: 30 6RF allopurinol 300 mg tablet 300 mg PO DAILY Qty: 90 3RF nystatin 100,000 unit/gram powder 1 applic topical BID Qty: 60 3RF apixaban 5 mg tablet 5 mg PO BID Qty: 180 3RF ondansetron HCl 4 mg tablet 4 mg PO Q8H PRN (Reason: nausea and vomiting) Qty: 30 3RF hydrocodone-acetaminophen 5-325 mg tablet 1 tab PO BID PRN (Reason: Pain) acetaminophen 500 mg Tablet 1,000 mg PO Q6H PRN (Reason: Pain) simvastatin 40 mg tablet 40 mg PO QPM levothyroxine 50 mcg tablet 50 mcg PO DAILY nitroglycerin [Nitrostat] 0.4 mg Tablet, Sublingual 0.4 mg SUBLINGUAL Q5M PRN (Reason: Chest Pain) Rx Instructions: do not exceed 3 doses per episode Trulicity 0.75 mg/0.5 mL pen injector 0.75 mg SUBCUT Q7D Rx Instructions: on sunday furosemide 40 mg tablet 60 mg PO BID 30 Days Qty: 90 0RF Discharge Orders: Discharge Order (Routine); Ordered 07/30/22 Ordered By: Saleem Sharpe Referrals: Farhat Acosta MD [Primary Care Provider] - 7-10 days Discharge Diet: Regular and Cardiac Discharge Activity: Resume usual activity Patient Instructions: Ciprofloxacin (By mouth), Metronidazole (By mouth), Pantoprazole (By mouth), Bronchiolitis (DC), Urinary Tract Infection in Women (DC), Community Acquired Pneumonia (DC), Opioid Safety Activity Restrictions/Additional Instructions: Continue ciprofloxacin and Flagyl for next 1 week to finish a course of oral antibiotics. Please follow-up with your primary care provider within next 1 week. Discharge Attestations Time Spent in Discharge Care*: greater than 30 min Specific Discharge Activities: educating patient, discussing with pcp/other providers, discussing with correctional case records supervisor/social workers/dc planners, documenting/other paperwork and evaluating patient/reviewing data Status at Discharge: Cognitive status at discharge: cognitively intact, Behavioral status at discharge: cooperative, Functional status at discharge: independent ambulation, Overall status at discharge: patient is back to baseline Quality Metrics Clinical Quality Measures [ No reported AMI, CVA or VTE this stay] Coding Level of Care Code 28939 Diagnoses Diarrhea R19.7 Amiodarone pulmonary toxicity J98.4; T46.2X5A CAD (coronary artery disease) I25.10 Diabetes type 2, uncontrolled CKD (chronic kidney disease) N18.9 HTN (hypertension) I10
== END 2022-07-30 12:46 | disposition home health service (06) | DRG 392 ==
LOC: ER 23:15 → MEDSURG 23:31
PROVIDERS: Admitting Provider Student in an Organized Health Care Education/Training Program; Emergency Provider Emergency Medicine; PCP Family Medicine; Visit Provider Student in an Organized Health Care Education/Training Program
DX: K52.9 Noninfective gastroenteritis and colitis, unspecified (principal); I13.0 Hypertensive heart and chronic kidney disease with heart failure and stage 1 through stage 4 chronic kidney disease, or unspecified chronic kidney disease; F33.2 Major depressive disorder, recurrent severe without psychotic features; J96.11 Chronic respiratory failure with hypoxia; E86.0 Dehydration; I25.10 Atherosclerotic heart disease of native coronary artery without angina pectoris; E11.22 Type 2 diabetes mellitus with diabetic chronic kidney disease; I50.9 Heart failure, unspecified; N18.9 Chronic kidney disease, unspecified; J98.4 Other disorders of lung; T46.2X5A Adverse effect of other antidysrhythmic drugs, initial encounter; J44.9 Chronic obstructive pulmonary disease, unspecified; I48.91 Unspecified atrial fibrillation; E03.9 Hypothyroidism, unspecified; Z20.828 Contact with and (suspected) exposure to other viral communicable diseases; Z95.5 Presence of coronary angioplasty implant and graft; Z99.81 Dependence on supplemental oxygen; Z79.4 Long term (current) use of insulin; Z86.14 Personal history of Methicillin resistant Staphylococcus aureus infection; Z79.899 Other long term (current) drug therapy; Z79.01 Long term (current) use of anticoagulants
CPT/HCPCS: 36415; 36416; 36600; 71045; 71275; 74176; 80051; 80053; 81001; 82330; 82805; 82962; 83605; 83880; 84484; 85025; 87040; 87086; 87426; 87804; 93005; 96365; 96372; 96375; 96376; 99285; J0696; J1815; J2060; J2405; J3490; J7120; Q0144; Q0162; Q9967

== ENCOUNTER → 2022-10-16 12:41 | Outpatient (BNVA) | payer OTHER, MEDICARE, MEDICAID, SELFPAY | PROVIDERS: PCP Family Medicine; Visit Provider Clinical Nurse Specialist Adult Health | DX: E11.9 Type 2 diabetes mellitus without complications (principal); M79.10 Myalgia, unspecified site | CPT/HCPCS: 80053; 83880 ==

== ENCOUNTER 2023-03-05 16:10 | Inpatient (IN) | payer MEDICARE, MEDICAID, SELFPAY ==
[2023-03-05] VITALS (12 sets, daily range): BP systolic 127–169; BP diastolic 61–95; PULSE 58–91; RESP 12–22; TEMP 36.6–36.7; O2SAT 90–98; BMI 33.4; BMI 43.0
--- NOTE | 2023-03-05 16:13 | XRR_ITS ---
PROCEDURE INFORMATION: Exam: XR Chest Exam date and time: 03/05/2023 4:18 PM Age: 67 years old Clinical indication: Pain; Angina pectoris; Prior surgery; Surgery date: 6+ months; Surgery type: RT breast; Additional info: Cp TECHNIQUE: Imaging protocol: Radiologic exam of the chest. Views: 1 view. COMPARISON: CR XR chest 1V portable [id number] 07/28/2022 5:02 PM FINDINGS: Lungs: Unremarkable. No consolidation. Pleural spaces: Unremarkable. No pleural effusion. No pneumothorax. Heart/Mediastinum: Borderline cardiomegaly. Bones/joints: Thoracic curvature. XR/XR chest 1V portable [id number] IMPRESSION: No acute findings.
--- NOTE | 2023-03-05 16:13 | ECG_ITS ---
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 Measurements Intervals [place] Rate: 91 P: 0 SD: 0 QRS: 1 QRSD: 116 T: 46 QT: 379 QTc: 467 Interpretive Statements ATRIAL FIBRILLATION MODERATE INTRAVENTRICULAR CONDUCTION DELAY [110+ ms QRS DURATION] MINIMAL ST DEPRESSION [0.025+ mV ST DEPRESSION] ABNORMAL RHYTHM ECG Compared to ECG 07/29/2022 01:54:02 Intraventricular conduction delay now present Atrial fibrillation no longer present ST (T wave) deviation still present Electronically Signed On 03-05-2023 21:13:04 CDT by Nancy Pate M.D. [id number]
[2023-03-05 16:42] LABS: Basophils # 0.1 10^3/uL (0.0-0.1); Basophils % 0.8 %; Eosinophils # 0.3 10^3/uL (0.0-0.8); Eosinophils % 3.4 %; Hematocrit 48.6 % (36-47); Lymphocytes % 21.4 %; Mean Corpuscular HGB Conc 32.1 g/dL (30-55); Mean Corpuscular Hemoglobin 28.9 pg (27-33); Mean Corpuscular Volume 90.2 fl (85-98); Mean Platelet Volume 10.2 fL (7.4-10.4); Monocytes # 0.7 10^3/uL (0.2-0.9); Monocytes % 7.5 %; Neutrophils # 6.09 10^3/uL (1.8-7.7); Neutrophils % 66.2 %; Nucleated Red Blood Cells % 0 %; Platelet Count 285 10^3/cmm (157-399); Red Blood Count 5.39 10^6/uL (3.85-5.65); Red Cell Distribution Width 15.6 % (12.1-15.1); White Blood Count 9.18 10^3/uL (3.29-11.43)
[2023-03-05] MEDS: HYDROmorphone 1 mg/mL INJ 1 mL 0.5 MG IVP (16:48)
[2023-03-05] MEDS: nitroglycerin 1 gm/inch oint Pkt 1 INCH TOPICAL (16:48)
[2023-03-05 17:05] LABS: INR 1.04 (0.8-1.2)
[2023-03-05 17:11] LABS: Troponin(5th) Baseline 22 ng/L (0-10)
[2023-03-05 17:13] LABS: Alanine Aminotransferase 15 U/L (0-33); Alkaline Phosphatase 96 U/L (35-105); Anion Gap 13.1 (5-19); Aspartate Amino Transferase 11 U/L (0-32); Blood Urea Nitrogen 17 mg/dL (8-23); Calcium 9.2 mg/dL (8.5-10.5); Carbon Dioxide 33 mmol/L (22-29); Chloride 101 mmol/L (98-107); Globulin 1.9 g/dL (1.3-4.6); Glomerular Filtration Rate 37.4 mL/min (90-130); Glucose 219 mg/dL (65-115); Lipase 60 U/L (13-60); Osmolality Calculated 304 mOsm/kg (285-295); Potassium 4.1 mmol/L (3.5-5.1); Sodium 143 mmol/L (136-145); Total Bilirubin 0.3 mg/dL (0.15-1.2); Total Protein 5.9 g/dL (6.6-8.7)
--- NOTE | 2023-03-05 17:18 | W.ED.CHESTPA ---
HPI - Chest Pain General: Chief Complaint: Chest Pain Stated Complaint: back and left arm pain, chest pressure Time Seen by Provider: 03/05/23 16:29 History of Present Illness: 67 years old female with extensive medical history including hypertension, heart disease, diabetes, hyperlipidemia COPD, hypertension and atrial fibrillation. Patient presents emergency room via private vehicle today with family due to chest pain that started last night. Patient described the pain as heaviness in her chest radiating to her shoulder blade. Patient with history of 2 stents in the past. Last cardiac stress test was about 7 years ago. Patient revealed some nausea but no vomiting denies any shortness of breath, cough, coughing up blood or vomiting blood. Sick contact recent foreign travel. Swelling no calf tenderness. Associated symptoms: Reports palpitations; Deny dyspnea Risk Factors: Coronary artery disease risk factors: diabetes, hyperlipidemia, hypertension and family history of CAD before age 50 Review of Systems General: Reports: 10 or more systems reviewed and unremarkable except in HPI and below Card: Reports: chest pain and palpitations; Denies: irregular heart rhythm, swelling of feet/ankles, lightheadedness, pre-syncope, dyspnea on exertion, orthopnea, leg pain with exertion or acrocyanosis Resp: Reports: non-productive cough and pain on inspiration; Denies: dyspnea, productive cough, wheezing, stridor, change in phlegm color, hemoptysis or chest congestion : Denies: flank pain, difficulty voiding or dysuria PFSH ED PFSH: Medical History Amiodarone pulmonary toxicity Atrial fibrillation CAD (coronary artery disease) Last echocardiogram 08/06 with EF of 50% Chronic pain She reports taking pain medicines and muscle relaxers for a recent back injury; she has chronic left leg pain. Chronic respiratory failure CKD (chronic kidney disease) Community acquired pneumonia Depression Diabetes mellitus Diabetes type 2, uncontrolled Fibromyalgia Gout HTN (hypertension) Hypercholesteremia Hyperlipidemia Hypothyroidism Influenza A Major depressive disorder, recurrent severe without psychotic features MRSA (methicillin resistant staph aureus) culture positive Polypharmacy Psychiatric care Type 2 diabetes mellitus Vitamin B12 deficiency Surgical History H/O cardiac radiofrequency ablation H/O section H/O eye surgery H/O left knee surgery History of back surgery History of carpal tunnel release History of coronary artery stent placement History of hysterectomy partial History of incision and drainage Right breast abscess Hx of cholecystectomy Family History Mother Cancer breast Stroke Brother Heart disease Asthma Cancer prostate Sister Heart disease Social History Smoking and tobacco status: never smoked Alcohol intake: never Substance/Drug Use: never Housing: Other Details: Currently with her family Physical Exam Const: COMMON NORMALS: no acute distress, average body habitus, patient oriented x3, no limitations, healthy appearing, alert and well nourished Eye: COMMON NORMALS: Equal, round and reactive pupils present, EOMs intact bilaterally, conjunctivae normal, no scleral icterus, no papilledema, normal visual issa by confrontation and fundi normal bilaterally CONJUNCTIVA: Yes conjunctivae normal PUPIL: Yes Equal, round and reactive pupils present DIRECT OPHTHALMOSCOPY: Yes no papilledema and Yes fundi normal bilaterally Neck/C-Spine: COMMON NORMALS: no JVD Chest: COMMONS NORMALS: normal inspection of the chest, normal palpation of entire chest wall, normal inspection of the breasts and normal palpation of the breasts Breast/axilla inspection: Yes normal inspection of the breasts BREAST/AXILLA PALPATION: Yes normal palpation of the breasts Resp: COMMON NORMALS: normal respiratory effort, No retractions, No use of accessory muscles, clear to auscultation bilaterally and percussion normal AUSCULTATION: clear to auscultation bilaterally PERCUSSION: percussion normal Cardio: COMMON NORMALS: no JVD, regular rate, regular rhythm, S1 normal heart sound present, S2 normal heart sound present, No gallops present (Cardio), No clicks present (Cardio), No murmurs present (Cardio), No rub (Cardio) and Peripheral pulses 2+ throughout RATE: regular rate RHYTHM: regular rhythm HEART SOUNDS: S1 normal heart sound present and S2 normal heart sound present PERIPHERAL PULSES: Peripheral pulses 2+ throughout GI: COMMON NORMALS: Normal to inspection, nondistended, normoactive bowel sounds present, Soft to palpation, non-tender, No hepatosplenomegaly present, no masses and no bruits PALPATION: Yes Soft to palpation and Yes No hepatosplenomegaly present Neuro: COMMON NORMALS: patient oriented x3 SENSORIUM/ORIENTATION: Yes alert Course Vital Signs: Vital signs: Vital Signs Temperature 98.0 F 03/06/23 19:44 Pulse Rate 63 03/06/23 22:00 Respiratory Rate 10 L 03/06/23 22:00 Blood Pressure 128/72 03/06/23 22:00 Pulse Oximetry 97 03/06/23 22:00 Oxygen Delivery Me thod Nasal Cannula 03/06/23 20:00 Oxygen Flow Rate 3 03/06/23 20:00 MDM - Chest Pain Medical Decision Making Patient was made comfortable emergency room and had extensive cardiac work-up including CBC, CMP, troponin EKG and x-ray. I reviewed past medical history and current medication list. Patient was given aspirin nitro and Lovenox. I discussed patient with the hospitalist. Differential Diagnosis Likely acute massive pulmonary embolism, acute respiratory failure, acute myocardial infarction, cardiac arrest and sudden cardiac Lab Data 03/06/23 04:56 03/06/23 04:56 Radiology Impressions Chest X-Ray 03/05/23 16:13 IMPRESSION: No acute findings. Laboratory Results WBC 8.52 10^3/uL (3.29-11.43) 03/06/23 04:56 RBC 4.81 10^6/uL (3.85-5.65) 03/06/23 04:56 Hgb 13.70 g/dL (11.27-16.99) 03/06/23 04:56 Hct 43.8 % (36-47) 03/06/23 04:56 MCV 91.1 fl (85-98) 03/06/23 04:56 MCH 28.5 pg (27-33) 03/06/23 04:56 MCHC 31.3 g/dL (30-55) 03/06/23 04:56 RDW 15.5 % (12.1-15.1) H 03/06/23 04:56 Plt Count 234 10^3/cmm (157-399) 03/06/23 04:56 MPV 10.6 fL (7.4-10.4) H 03/06/23 04:56 Neut % (Auto) 57.7 % 03/06/23 04:56 Lymph % (Auto) 25.8 % 03/06/23 04:56 [place] % (Auto) 10.4 % 03/06/23 04:56 Eos % (Auto) 4.7 % 03/06/23 04:56 Baso % (Auto) 0.8 % 03/06/23 04:56 Neut # (Auto) 4.91 10^3/uL (1.8-7.7) 03/06/23 04:56 Lymph # (Auto) 2.2 10^3/uL (0.8-4.8) 03/06/23 04:56 Isabel[place] # (Auto) 0.9 10^3/uL (0.2-0.9) 03/06/23 04:56 Eos # (Auto) 0.4 10^3/uL (0.0-0.8) 03/06/23 04:56 Baso # (Auto) 0.1 10^3/uL (0.0-0.1) 03/06/23 04:56 Nucleated RBC % (auto) 0 % 03/06/23 04:56 Nucleated RBCs # 0.0 /100WBC 03/06/23 04:56 PT 13.90 SECONDS (12.1-14.9) 03/05/23 16:32 INR 1.04 (0.8-1.2) 03/05/23 16:32 Sodium 145 mmol/L (136-145) 03/06/23 04:56 Potassium 3.2 mmol/L (3.5-5.1) L 03/06/23 04:56 Chloride 104 mmol/L (98-107) 03/06/23 04:56 Carbon Dioxide 33 mmol/L (22-29) H 03/06/23 04:56 Anion Gap 11.2 (5-19) 03/06/23 04:56 BUN 17 mg/dL (8-23) 03/06/23 04:56 Creatinine 1.3 mg/dL (0.5-0.9) H 03/06/23 04:56 GFR Calculation 40.7 mL/min (90-130) L 03/06/23 04:56 Glucose 116 mg/dL (65-115) H 03/06/23 04:56 POC Glucose 127 mg/dL (70-110) H 03/06/23 11:15 Estimat Average Glucose 163 03/06/23 04:56 Hemoglobin A1c 7.3 % (4.0-6.0) H 03/06/23 04:56 Calculated Osmolality 303 mOsm/kg (285-295) H 03/06/23 04:56 Calcium 8.9 mg/dL (8.5-10.5) 03/06/23 04:56 Phosphorus 4.3 mg/dL (2.5-4.5) 03/06/23 04:56 Magnesium 1.9 mg/dL (1.7-2.3) 03/06/23 04:56 Total Bilirubin 0.3 mg/dL (0.15-1.2) 03/06/23 04:56 AST 14 U/L (0-32) 03/06/23 04:56 ALT 15 U/L (0-33) 03/06/23 04:56 Alkaline Phosphatase 82 U/L (35-105) 03/06/23 04:56 Troponin T Baseline 22 ng/L (0-10) H 03/05/23 16:32 Troponin T 120 Minute 19.20 ng/L (0-10) H 03/05/23 19:15 Delta Troponin T -2.80 ABS# (0-10) L 03/05/23 19:15 Troponin T Hi Sens 6Hr 21.85 ng/L (0-10) H 03/05/23 22:34 Troponin T Hi Sens 6Hr Delta -0.15 ng/L (0-12) L 03/05/23 22:34 Total Protein 5.8 g/dL (6.6-8.7) L 03/06/23 04:56 Albumin 3.4 g/dL (3.5-5.2) L 03/06/23 04:56 Globulin 2.4 g/dL (1.3-4.6) 03/06/23 04:56 Triglycerides 321 mg/dL (0-150) H 03/06/23 04:56 Cholesterol 172 mg/dL (0-200) 03/06/23 04:56 LDL Cholesterol, Calc 77 mg/dL (50-129) 03/06/23 04:56 HDL Cholesterol 31 mg/dL (60-100) L 03/06/23 04:56 LDL/HDL Ratio 2.48 RATIO (0.00-3.22) 03/06/23 04:56 Cholesterol/HDL Ratio 5.55 mg/dL (0.0-4.40) H 03/06/23 04:56 Lipase 60 U/L (13-60) 03/05/23 16:32 Procalcitonin 0.09 ng/mL (0-0.5) 03/05/23 16:32 TSH 3.34 uIU/mL (0.27-4.20) 03/05/23 22:34 Urine Color Yellow (Yellow) 03/05/23 22:02 Urine Appearance Clear (CLEAR) 03/05/23 22:02 Urine pH 5 (5-7) 03/05/23 22:02 Ur Specific [place] 1.020 (1.005-1.030) 03/05/23 22:02 Urine Protein 3+ (Negative) H 03/05/23 22:02 Urine Glucose (UA) Trace (Normal) H 03/05/23 22:02 Urine Ketones Negative (Negative) 03/05/23 22:02 Urine Blood Neg (Negative) 03/05/23 22:02 Urine Nitrate Negative (Negative) 03/05/23 22:02 Urine Bilirubin Neg (Negative) 03/05/23 22:02 Urine Urobilinogen Norm mg/dL (Negative) 03/05/23 22:02 Ur Leukocyte Esterase Negative (Negative) 03/05/23 22:02 Urine RBC 0-4 /hpf (0-2) H 03/05/23 22:02 Urine WBC 5-10 /hpf (0-5) H 03/05/23 22:02 Ur Squamous Epith Cells 0-4 /hpf (0-5) H 03/05/23 22:02 Amorphous Sediment Not Reportable 03/05/23 22:02 Urine Bacteria Trace /hpf (NONE) 03/05/23 22:02 Hyaline Casts 5-10 /lpf H 03/05/23 22:02 Urine Mucus Trace /hpf 03/05/23 22:02 XR interpretation done by ED provider, pending radiology final review EKG Data EKG 1: Interpretation: Atrial flutter with rate of [address] depression. No obvious ST elevation. 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
--- NOTE | 2023-03-05 18:16 | ECG_ITS ---
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 Measurements Intervals [place] Rate: 83 P: 0 AK: 0 QRS: 9 QRSD: 108 T: 73 QT: 393 QTc: 463 Interpretive Statements ATRIAL FLUTTER/TACHYCARDIA INDETERMINATE AXIS MODERATE ST DEPRESSION [0.05+ mV ST DEPRESSION] Compared to ECG 03/05/2023 16:17:57 Indeterminate axis now present Intraventricular conduction delay no longer present ST (T wave) deviation still present Electronically Signed On 03-05-2023 21:33:37 CDT by Nancy Pate M.D. [id number]
[2023-03-05] MEDS: enoxaparin 100 mg/mL Syringe SUBCUT (18:56)
--- NOTE | 2023-03-05 19:45 | P.HP_ITS ---
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 Patient states that symptoms started this morning while she was at rest. She started to feel a central chest pressure radiating into her back between the shoulder blades. She feels like her heart rate was very fast at that time but did not check a number. Associated symptoms included dyspnea. 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 Patient has a history of atrial fibrillation for which she is on chronic anticoagulation with Eliquis. She has a history of heart failure and is on Lasix 120 mg p.o. twice daily. She estimates she has put on about 10 pounds in the last 1 week. She has some chronic lower extremity swelling right often worse than left. She feels like her leg swelling is currently at baseline. She is typically on 3 L/min supplemental O2 at home. Denies any recent fever chills dyspnea palpitations or syncope. Review of Systems General: Reports: 10 or more systems reviewed and unremarkable except in HPI and below Const: Denies: fever(s), chills, body aches, change in appetite, change in weight, malaise, night sweats, diaphoresis, change in sleep pattern, daytime sleepiness or snoring Eyes: Denies: change in vision, blurry vision, photophobia, eye discomfort or eye discharge ENMT: Denies: throat pain, enlarged tonsils, hoarseness, mouth pain, oral sores, dry mouth, tinnitus, nasal congestion or post nasal drip Card: Denies: chest pain, palpitations, irregular heart rhythm, edema, swelling of feet/ankles, lightheadedness, syncope, pre-syncope, dyspnea on exertion, orthopnea, leg pain with exertion or acrocyanosis Resp: Denies: dyspnea, productive cough, non-productive cough, wheezing, stridor, pain on inspiration, change in phlegm color, hemoptysis or chest congestion GI: Denies: abdominal pain, nausea, vomiting, hematemesis, coffee ground emesis, dysphagia, heartburn, diarrhea, constipation, bloating, GI cramping, change in bowel habits, pain on defecation, hematochezia or melena : Denies: flank pain, dysuria, urinary frequency, urinary urgency, urinary hesitancy, nocturia or hematuria Musc: Denies: neck pain, back pain, extremity pain, joint pain, joint swelling, joint redness, joint stiffness or limited range of motion Neuro: Denies: headache(s), numbness in extremities, weakness in extremities, sensory changes, lack of coordination, difficulty walking, frequent falls, dizziness, vertigo, confusion, Slurred speech present, difficulty communicating thoughts or seizure-like activity Psych: Denies: anxiety, depression, mood swings, panic attacks, hopelessness or irritability Endo: Denies: polyuria, polydipsia, tired all the time, cold intolerance, excessive sweating, flushing or heat intolerance David/Lymph: Denies: easy bruising or easy bleeding All/Imm: Denies: tongue swelling, facial swelling or acute wheezing Medications/Allergies Home Medications Medication Instructions Recorded Confirmed Last Taken Type albuterol sulfate 90 mcg/actuation 2 puff inhalation Q6H PRN 06/30/19 03/05/23 07/27/22 History aerosol inhaler (ProAir HFA) Shortness Of Breath flash glucose sensor (FreeStyle #1 ea 01/27/22 03/06/23 Unknown Rx Lou 14 Day Sensor kit) flash glucose sensor (FreeStyle #1 ea 02/03/22 03/06/23 Unknown Rx Lou 14 Day Sensor kit) cyanocobalamin (vitamin B-12) 1,000 mcg PO DAILY #30 tabs 02/05/22 03/05/23 03/05/23 Rx 1,000 mcg tablet (Vitamin B-12) acetaminophen 500 mg tablet 1,000 mg PO Q6H PRN Pain 05/11/22 03/05/23 03/05/23 History nitroglycerin 0.4 mg sublingual 0.4 mg sublingual Q5M PRN Chest 05/11/22 03/05/23 Unknown History tablet (Nitrostat) Pain ipratropium 0.5 mg-albuterol 3 mg 3 ml inhalation Q6H PRN shortness 05/22/22 03/05/23 Unknown Rx (2.5 mg base)/3 mL nebulization of breath or wheezing #180 mL soln ondansetron HCl 4 mg tablet 4 mg PO Q8H PRN nausea and 07/28/22 03/05/23 Unknown Rx vomiting #30 tabs flash glucose scanning reader #1 ea 08/07/22 03/06/23 Unknown Rx (FreeStyle Lou 14 Day [place]) flash glucose sensor (FreeStyle #1 ea 08/07/22 03/06/23 Unknown Rx Lou 14 Day Sensor kit) ammonium lactate 12 % lotion 1 applic topical BID PRN [place]ucc[place] 09/06/22 03/06/23 Unknown Rx keratosis #225 grams clobetasol 0.05 % scalp solution 1 applic topical BID 2 weeks #50 mL 09/06/22 03/06/23 Unknown Rx ketoconazole 2 % shampoo 1 applic topical ONCE #120 mL 09/06/22 03/06/23 Unknown Rx ketoconazole 2 % topical cream 1 applic topical BID #30 grams 09/06/22 03/06/23 Unknown Rx miconazole nitrate 2 % topical 1 applic topical DAILY #85 grams 09/06/22 03/06/23 Unknown Rx powder (Antifungal (miconazole)) triamcinolone acetonide 0.1 % 1 applic topical BID #454 grams 09/06/22 03/06/23 Unknown Rx topical ointment pregabalin 50 mg capsule 50 mg PO BID #60 caps 09/14/22 03/05/23 03/05/23 Rx allopurinol 300 mg tablet 300 mg PO DAILY #90 tabs 09/26/22 03/05/23 03/05/23 Rx apixaban 5 mg tablet 5 mg PO BID #180 tabs 09/26/22 03/05/23 03/05/23 Rx buspirone 10 mg tablet 10 mg PO TID #90 tabs 09/26/22 03/05/23 03/05/23 Rx diltiazem HCl 120 mg 120 mg PO DAILY #90 caps 09/26/22 03/05/23 03/05/23 Rx capsule,extended release 24 hr levothyroxine 50 mcg tablet 50 mcg PO DAILY #90 tabs 0403/05/23 03/05/23 Rx metoprolol tartrate 100 mg tablet 100 mg PO BID #60 tabs 09/26/22 03/05/23 Unknown Rx potassium chloride 20 mEq 20 meq PO BID #180 tabs 09/26/22 03/05/23 03/05/23 Rx tablet,extended release(part/cryst) simvastatin 40 mg tablet 40 mg PO QPM #90 tabs 09/26/22 03/05/23 03/05/23 Rx baclofen 5 mg tablet 5 mg PO Q8H 14 days #42 tabs 10/16/22 03/05/23 03/05/23 Rx hydrocodone 5 mg-acetaminophen 325 1 tab PO BID PRN Pain 5 days #10 10/16/22 03/05/23 Unknown Rx mg tablet tabs furosemide 40 mg tablet 120 mg PO BID #180 tabs 10/24/22 03/05/23 03/05/23 Rx dulaglutide 0.75 mg/0.5 mL 0.75 mg (0.5 mL) SUBCUT Q7D #2 mL 11/09/22 03/05/23 Unknown Rx subcutaneous pen injector (Trulicity) duloxetine 60 mg capsule,delayed 60 mg PO BID #60 caps 01/08/23 03/05/23 Unknown Rx release insulin glargine 100 unit/mL 90 unit (0.9 mL) SUBCUT BID #80 mL 01/24/23 03/05/23 03/05/23 Rx subcutaneous solution (Lantus U-100 Insulin) lorazepam 1 mg tablet 1 mg PO BID PRN anxiety #60 tabs 02/27/23 03/05/23 Unknown Rx Allergies Allergy/AdvReac Type Severity Reaction Status Date / Time morphine Allergy Severe Quit Verified 03/05/23 23:12 breathing amiodarone Allergy ALGY-Anaphy Verified 03/05/23 23:12 laxis shellfish derived AdvReac Severe Hives & Verified 03/05/23 23:12 throat swells meperidine [From Demerol] AdvReac Intermediate Made N & V Verified 03/05/23 23:12 Penicillins AdvReac Intermediate RAsh Verified 03/05/23 23:12 PFSH Acute PFSH: Medical History (Updated 03/05/23 @ 21:56 by Saleem Sharpe MD) Amiodarone pulmonary toxicity Atrial fibrillation CAD (coronary artery disease) Last echocardiogram 08/06 with EF of 50% Chronic pain She reports taking pain medicines and muscle relaxers for a recent back injury; she has chronic left leg pain. Chronic respiratory failure CKD (chronic kidney disease) Community acquired pneumonia Depression Diabetes mellitus Diabetes type 2, uncontrolled Fibromyalgia Gout HTN (hypertension) Hypercholesteremia Hyperlipidemia Hypothyroidism Influenza A Major depressive disorder, recurrent severe without psychotic features MRSA (methicillin resistant staph aureus) culture positive Polypharmacy Psychiatric care Type 2 diabetes mellitus Vitamin B12 deficiency Surgical History H/O cardiac radiofrequency ablation H/O section H/O eye surgery H/O left knee surgery History of back surgery History of carpal tunnel release History of coronary artery stent placement History of hysterectomy partial History of incision and drainage Right breast abscess Hx of cholecystectomy Family History Mother Cancer breast Stroke Brother Heart disease Asthma Cancer prostate Sister Heart disease Social History Smoking and tobacco status: never smoked Alcohol intake: never Substance/Drug Use: never Housing: Other Details: Currently with her family Vitals/I&O/Wt Last Vital Signs Temp 98 F 03/05/23 16:19 Pulse 80 03/05/23 18:58 Resp 18 03/05/23 18:58 BP 146/81 03/05/23 18:58 Pulse Ox 93 03/05/23 18:58 O2 Del Method Nasal Cannula 03/05/23 18:58 O2 Flow Rate 3 03/05/23 18:58 Weight last 48 hrs Weight 99.79 kg Physical Exam Narrative: EXAM NARRATIVE: General: No acute distress, AO x3, NC oxygen supplementation at 3 L/min HEENT: PERRLA, pupils bilaterally equal and reactive Chest: equal good air entry bilaterally, fine basal crackles CVS: S1-S2 regular, no murmurs, no tachycardia, no gallops, no rubs Abdomen: Soft, nontender, no organomegaly, bowel sounds present, morbidly obese Neuro: No focal deficits, no facial deformity, AO x3, power 5/5 in all limbs Extremities right lower extremity 1+ pitting edema, patient states this is baseline. Data 03/06/23 04:56 03/06/23 04:56 A&P Assessment and plan (1) Unstable angina: With h/o CAD s/p PCI in past. No Stress or CAG in last 5-6 yrs. Check Echo, A1c, Lipid panel Aspirin 325 mg stat f/b 81 mg daily, Statin, BBlocker. Switch Eliquis to Lovenox 1mg/kg Q12h NPO after MN for Lexiscan in AM. (2) CAD (coronary artery disease): (3) Atrial fibrillation: Rate controlled. C/w Home dose of Cardizem and Metoprolol. AC as above (4) Hyperlipidemia: (5) CKD (chronic kidney disease): Baseline creat 1.4-1.9. At baseline. Continue to monitor daily. Med rec done for nephrotoxic drugs (6) Type 2 diabetes mellitus: Check A1c Home dose of lantus 90 BID. Start ISS mod AC and HS Plan C/w other chronic meds. Full code Carb consistent cardiac diet Lovenox will suffice as DVT ppx Protonix for PUD ppx. Attestations Medical Necessity Statement*: Under observation for unstable angina in patient with h/o CAD s/p PCI Diagnoses Unstable angina I20.0 CAD (coronary artery disease) I25.10 Atrial fibrillation I48.91 Hyperlipidemia E78.5 CKD (chronic kidney disease) N18.9 Type 2 diabetes mellitus E11.9
--- NOTE | 2023-03-05 19:56 | USCV_ITS ---
Shauna Sena Age: 67 Gender: F : 1955 Exam Date: 03/05/2023 20:21 Ordering Phys: Saleem Sharpe MD Technologist: ALY [place] [facility] [place]: hx CAD s/p stents, hx CHF, hx AFIB s/p ablation, hx chronic resp failure. BP: 146 / 81 HR: 71 Rhythm: Atrial fibrillation Technical Quality: Adequate with [employer] MEASUREMENTS (Male / Female) Normal Values 2D ECHO LV Diastolic Diameter PLAX 4.9 cm 4.2 - 5.9 / 3.9 - 5.3 cm LV Systolic Diameter PLAX 3.8 cm IVS Diastolic Thickness 1.5 cm 0.6 - 1.0 / 0.6 - 0.9 cm IVS Systolic Thickness 2.4 cm LVPW Diastolic Thickness 1.2 cm 0.6 - 1.0 / 0.6 - 0.9 cm LVPW Systolic Thickness 1.8 cm LVOT Diameter 1.9 cm LV Ejection Fraction 2D Teich 45.8 % LV Ejection Fraction MOD 2C 53.8 % LV Ejection Fraction 2C AL 55.3 % LA Diameter 4.6 cm LA Width 4.0 cm LA Height 5.5 cm RA Width 4.6 cm RA Height 6.1 cm Aorta at Sinotubular Diameter 3.1 cm IVC Diameter 2.0 cm M-MODE Aortic Annulus Diameter 3.1 cm LA Ao Ratio MM 1.5 MV E Point Septal Separation 0.6 cm DOPPLER AV Peak Velocity 113.0 cm/s LVOT Peak Velocity 76.0 cm/s AV Area Cont Eq vti 2.2 cm squared AV Area Cont Eq pk 2.0 cm squared MV Peak Velocity 92.0 cm/s MV Area PHT 3.7 cm squared MV E' Velocity 37.0 cm/s Mitral E to MV E' Ratio 19.1 Mitral E to LV E' Lateral Ratio 25.2 Mitral E to LV E' Septal Ratio 15.7 TV Peak E Velocity 41.0 cm/s PV Peak Velocity 104.0 cm/s RV Acceleration Time 0.1 s RV Ejection Time 0.4 s RV AcT/ET 0.3 FINDINGS Left Ventricle Left ventricle is normal in size. LV systolic function is mildly decreased with EF of 45 to 50%. Mild global hypokinesis seen. Diastolic function is indeterminate because of atrial fibrillation. Right Ventricle The right ventricle is normal in size and function. Right Atrium Dilated Left Atrium The left atrium is normal in size. Mitral Valve Mild mitral annular calcification. Aortic Valve Structurally normal aortic valve. There is mild aortic regurgitation. No significant aortic stenosis. Tricuspid Valve Mild tricuspid regurgitation. Insufficient TR jet to calculate RVSP Pulmonic Valve Not well-visualized Pericardium Normal pericardium without effusion. Aorta Normal ascending aorta dimension. IVC The inferior vena cava appears normal. CONCLUSIONS LV systolic function is mildly reduced with EF of 45-50%. Mild global hypokinesis Diastolic function is indeterminate because of atrial fibrillation. Left atrial dilation Mild aortic regurgitation Mild tricuspid regurgitation Compared to prior echocardiogram from 2019, no significant changes are seen Seth Santillan MD (Electronically Signed) Final Date: 06 March 2023 09:36 S
--- NOTE | 2023-03-05 19:56 | ECG_ITS ---
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 Interpretive Statements NAME OF STUDY: LEXISCAN SESTAMIBI STRESS TEST INDICATION: [Coronary Artery Disease; Angina, ] Procedure: At the baseline, the blood pressure was 125/90 mmHg with a heart rate of 77 bpm. The electrocardiogram showed atrial fibrillation with non specific ST t wave changes. The Lexiscan was infused over a period of 20 seconds. A total of 0.4 mg of Lexiscan was infused. The stress phase was continued for a total of 5 minutes. Heart rate was at the end of stress phase was 83 bpm and a blood pressure of 114/75 mmHg. The EKG at the peak infusion revealed atrial fibrillation with no significant ST-T wave changes. Sestamibi was injected 20 seconds after the Lexiscan infusion. Blood pressure at the end of recovery phase was 115/78 mmHg with a heart rate of 79 bpm. Conclusion: 1. Normal EKG response to Lexiscan infusion 2. No Lexiscan induced chest pain or cardiac arrhythmia. 3. Normal blood pressure and heart rate response. 4. Sestamibi/sestamibi perfusion scan pending; see separate report. Electronically Signed On 03-15-2023 14:32:20 CDT by Seth Santillan M.D. [id number]
[2023-03-05 21:18] LABS: Procalcitonin 0.09 ng/mL (0-0.5)
[2023-03-05] MEDS: lanolin oint 7 gm 1 APPLIC TOPICAL (22:12)
[2023-03-05] MEDS: baclofen 10 mg Tablet 5 MG PO (22:12)
[2023-03-05] MEDS: pantoprazole 40 mg SDV IVP (22:13)
--- NOTE | 2023-03-05 22:13 | ECG_ITS ---
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 Measurements Intervals [place] Rate: 75 P: 0 CA: 0 QRS: 24 QRSD: 109 T: 39 QT: 427 QTc: 477 Interpretive Statements ATRIAL FLUTTER INDETERMINATE AXIS MODERATE ST DEPRESSION [0.05+ mV ST DEPRESSION] Compared to ECG 03/05/2023 18:16:08 No significant changes Electronically Signed On 03-06-2023 9:22:25 CDT by Seth Santillan M.D. [id number]
[2023-03-05 22:17] LABS: Protein Urine 3+ (Negative); Urine Appearance Clear (CLEAR); Urine Color Yellow (Yellow); pH Urine 5 (5-7)
[2023-03-05 22:18] LABS: Add Urine Microscopic? YES; Bacteria Urine TRACE /hpf; Bilirubin Urine Neg (Negative); Blood Urine Neg (Negative); Glucose Urine UA Trace (Normal); Ketones Urine Negative (Negative); Leukocyte Esterase Urine Negative (Negative); Mucus Urine TRACE /hpf; Nitrate Urine Negative (Negative); RBC Urine 0-4 /hpf (0-2); Squamous Epithelial Cell Urine 0-4 /hpf (0-5); Urobilinogen Urine Norm (Negative)
[2023-03-05 22:19] LABS: Add Urine Culture? No
--- NOTE | 2023-03-05 22:25 | PC.NURSE ---
Arrival to ICU: Pt arrived to ICU 3 @2126. Stage 1 pressure injury noted on sacrum w/ three 0.5/0.5 open sores. Optifoamx2 applied, Dr. Arambula notifed. See MAR for administration of medication. Post giving protonix and bacolfen pt reported itching all over , no rash noted. Dr. Arambula called. New order for Benadryl 25mg PO NOW ONCE.
[2023-03-05] MEDS: diphenhydrAMINE 25 mg Capsule PO (22:34)
[2023-03-05 23:11] LABS: Thyroid Stimulating Hormone 3.34 uIU/mL (0.27-4.20)
[2023-03-05] MEDS: FUROsemide 10 mg/mL SDV 10mL 60 MG IVP (23:30)
[2023-03-06] VITALS (29 sets, daily range): BP systolic 115–181; BP diastolic 71–107; PULSE 55–144; RESP 1–33; TEMP 36.6–36.8; O2SAT 88–99
[2023-03-06 00:32] LABS: Troponin 5 6HR 21.85 ng/L (0-10)
[2023-03-06 00:33] LABS: Troponin 5 6HR Delta -0.15 ng/L (0-12)
[2023-03-06] MEDS: baclofen 10 mg Tablet 5 MG PO ×3 (05:00→20:02)
[2023-03-06] MEDS: perflutren protein-a microsphr 0.22 mg/mL SDV 3 mL IV (05:49)
[2023-03-06 05:55] LABS: Basophils # 0.1 10^3/uL (0.0-0.1); Basophils % 0.8 %; Eosinophils # 0.4 10^3/uL (0.0-0.8); Eosinophils % 4.7 %; Hematocrit 43.8 % (36-47); Lymphocytes # 2.2 10^3/uL (0.8-4.8); Lymphocytes % 25.8 %; Mean Corpuscular HGB Conc 31.3 g/dL (30-55); Mean Corpuscular Hemoglobin 28.5 pg (27-33); Mean Corpuscular Volume 91.1 fl (85-98); Mean Platelet Volume 10.6 fL (7.4-10.4); Monocytes # 0.9 10^3/uL (0.2-0.9); Monocytes % 10.4 %; Neutrophils # 4.91 10^3/uL (1.8-7.7); Neutrophils % 57.7 %; Nucleated Red Blood Cells % 0 %; Platelet Count 234 10^3/cmm (157-399); Red Blood Count 4.81 10^6/uL (3.85-5.65); Red Cell Distribution Width 15.5 % (12.1-15.1); White Blood Count 8.52 10^3/uL (3.29-11.43)
[2023-03-06 06:05] LABS: Estmated Average Glucose 163; Hemoglobin A1C 7.3 % (4.0-6.0)
[2023-03-06] MEDS: enoxaparin 100 mg/mL Syringe SUBCUT (06:09)
[2023-03-06 06:14] LABS: Alanine Aminotransferase 15 U/L (0-33); Albumin Level 3.4 g/dL (3.5-5.2); Alkaline Phosphatase 82 U/L (35-105); Anion Gap 11.2 (5-19); Aspartate Amino Transferase 14 U/L (0-32); Blood Urea Nitrogen 17 mg/dL (8-23); Calcium 8.9 mg/dL (8.5-10.5); Carbon Dioxide 33 mmol/L (22-29); Chloride 104 mmol/L (98-107); Globulin 2.4 g/dL (1.3-4.6); Glomerular Filtration Rate 40.7 mL/min (90-130); Glucose 116 mg/dL (65-115); Magnesium 1.9 mg/dL (1.7-2.3); Osmolality Calculated 303 mOsm/kg (285-295); Phosphorus 4.3 mg/dL (2.5-4.5); Potassium 3.2 mmol/L (3.5-5.1); Sodium 145 mmol/L (136-145); Total Bilirubin 0.3 mg/dL (0.15-1.2); Total Protein 5.8 g/dL (6.6-8.7)
[2023-03-06 06:18] LABS: Chol HDL Ratio 5.55 mg/dL (0.0-4.40); Cholesterol 172 mg/dL (0-200); HDL Cholesterol 31 mg/dL (60-100); LDL Cholesterol Calculated 77 mg/dL (50-129); LDL HDL Ratio 2.48 RATIO (0.00-3.22); Triglycerides 321 mg/dL (0-150)
[2023-03-06] MEDS: regadenoson 0.4 Mg/5 ml Syringe IVP (07:32)
[2023-03-06 08:32] LABS: Glucose Point of Care 120 mg/dL (70-110)
[2023-03-06] MEDS: allopurinol 300 mg Tablet PO (08:46)
[2023-03-06] MEDS: dilTIAZem ER (24HR) 120 mg Capsule PO (08:46)
[2023-03-06] MEDS: pregabalin 50 mg Capsule PO ×2 (08:46→17:29)
[2023-03-06] MEDS: metoprolol tartrate 50 mg Tablet 100 MG PO ×2 (08:46→17:28)
[2023-03-06] MEDS: duloxetine 60 mg Capsule PO ×2 (08:46→17:29)
[2023-03-06] MEDS: levothyroxine 50 mcg Tablet PO (08:46)
[2023-03-06 11:21] LABS: Glucose Point of Care 127 mg/dL (70-110)
[2023-03-06] MEDS: potassium chloride ER 20 mEq Tablet 80 MEQ PO (11:43)
--- NOTE | 2023-03-06 13:02 | P.CONIM_ITS ---
Providers/Reason For Consult Consulting Physician/Specialty*: DAYANNA Chapman MD/cardiology Reason for Consult*: Patient with chest pain and abnormal Myocardial perfusion imaging Requesting Physician: Dr. Sharpe Attending Physician: Saleem Sharpe MD Primary Care Provider: Farhat Acosta MD History of Present Illness History of Present Illness Shauna Sena is a 67 year old female history of atherosclerotic heart disease, multiple PCI's, is admitted to hospital with complaints of back pain, between the shoulder blades associated with heaviness in the chest, shortness of breath and some nausea. She had a Myocardial perfusion imaging today which was found to be abnormal. Cardiology consult is requested for further cardiac evaluation recommendations. This patient had the initial PCI of the circumflex artery in [address] [facility].. In 2008, she had a repeat PCI of the circumflex artery at the [facility]. In 2010, she had a PCI of the proximal LAD in [place]. In 2013, she had 2 stents placed in the LAD in [place] for in-stent stenosis?. Apparently she has been doing okay since then. She has a history of atrial fibrillation and amiodarone toxicity. She has been in her baseline state of health up until yesterday when she started having pain between the shoulder blades. The pain was moderate in intensity and has been waxing and waning throughout yesterday. She had associated shortness of breath, chest heaviness/tightness, nausea and some sweating. The pain occasionally radiates to the left arm. Because of the persistence of the symptoms, she was brought to the hospital ,last evening. She has no fever, chills or cough. No abdominal pain or dysuria. No other specific complaints. She had a Myocardial perfusion imaging today and the results are as mentioned below. Patient has a history of hypertension, type 2 diabetes, dyslipidemia, chronic kidney disease, hypothyroidism. Her kidney function has been fairly stable. Review of Systems Narrative: CONSTITUTIONAL: No fever or chills. EYES: No blurring of vision or other visual disturbances lately. ENT: No hoarseness of voice, auditory disturbances or sore throat. CARDIOVASCULAR: As mentioned above. RESPIRATORY: Shortness of breath as mentioned above. GASTROINTESTINAL: No hematemesis or melena. GENITOURINARY: No dysuria or hematuria. INTEGUMENTARY: No skin rashes or history of skin cancer. NEURO: No transient ischemic attacks or amaurosis. PSYCHIATRIC: No history of psychosis or major depression. HEMATOLOGIC: No bleeding disorders or significant anemia. ENDOCRINE: No history of polyuria or polydipsia. MUSCULOSKELETAL: No recent joint pain or swelling. ALLERGY/IMMUNOLOGY: As mentioned above. Medications/Allergies Home Medications Medication Instructions Recorded Confirmed Last Taken Type albuterol sulfate 90 mcg/actuation 2 puff inhalation Q6H PRN 06/30/19 03/05/23 07/27/22 History aerosol inhaler (ProAir HFA) Shortness Of Breath flash glucose sensor (FreeStyle #1 ea 01/27/22 03/06/23 Unknown Rx Lou 14 Day Sensor kit) flash glucose sensor (FreeStyle #1 ea 02/03/22 03/06/23 Unknown Rx Lou 14 Day Sensor kit) cyanocobalamin (vitamin B-12) 1,000 mcg PO DAILY #30 tabs 02/05/22 03/05/23 03/05/23 Rx 1,000 mcg tablet (Vitamin B-12) acetaminophen 500 mg tablet 1,000 mg PO Q6H PRN Pain 05/11/22 03/05/23 03/05/23 History nitroglycerin 0.4 mg sublingual 0.4 mg sublingual Q5M PRN Chest 05/11/22 03/05/23 Unknown History tablet (Nitrostat) Pain ipratropium 0.5 mg-albuterol 3 mg 3 ml inhalation Q6H PRN shortness 05/22/22 03/05/23 Unknown Rx (2.5 mg base)/3 mL nebulization of breath or wheezing #180 mL soln ondansetron HCl 4 mg tablet 4 mg PO Q8H PRN nausea and 07/28/22 03/05/23 Unknown Rx vomiting #30 tabs flash glucose scanning reader #1 ea 08/07/22 03/06/23 Unknown Rx (FreeStyle Lou 14 Day Mina) flash glucose sensor (FreeStyle #1 ea 08/07/22 03/06/23 Unknown Rx Lou 14 Day Sensor kit) ammonium lactate 12 % lotion 1 applic topical BID PRN stucco 09/06/22 03/06/23 Unknown Rx keratosis #225 grams clobetasol 0.05 % scalp solution 1 applic topical BID 2 weeks #50 mL 09/06/22 03/06/23 Unknown Rx ketoconazole 2 % shampoo 1 applic topical ONCE #120 mL 09/06/22 03/06/23 Unknown Rx ketoconazole 2 % topical cream 1 applic topical BID #30 grams 09/06/22 03/06/23 Unknown Rx miconazole nitrate 2 % topical 1 applic topical DAILY #85 grams 09/06/22 03/06/23 Unknown Rx powder (Antifungal (miconazole)) triamcinolone acetonide 0.1 % 1 applic topical BID #454 grams 09/06/22 03/06/23 Unknown Rx topical ointment pregabalin 50 mg capsule 50 mg PO BID #60 caps 09/14/22 03/05/23 03/05/23 Rx allopurinol 300 mg tablet 300 mg PO DAILY #90 tabs 09/26/22 03/05/23 03/05/23 Rx apixaban 5 mg tablet 5 mg PO BID #180 tabs 09/26/22 03/05/23 03/05/23 Rx buspirone 10 mg tablet 10 mg PO TID #90 tabs 09/26/22 03/05/23 03/05/23 Rx diltiazem HCl 120 mg 120 mg PO DAILY #90 caps 09/26/22 03/05/23 03/05/23 Rx capsule,extended release 24 hr levothyroxine 50 mcg tablet 50 mcg PO DAILY #90 tabs 09/26/22 03/05/23 03/05/23 Rx metoprolol tartrate 100 mg tablet 100 mg PO BID #60 tabs 09/26/22 03/05/23 Unknown Rx potassium chloride 20 mEq 20 meq PO BID #180 tabs 09/26/22 03/05/23 03/05/23 Rx tablet,extended release(part/cryst) simvastatin 40 mg tablet 40 mg PO QPM #90 tabs 09/26/22 03/05/23 03/05/23 Rx baclofen 5 mg tablet 5 mg PO Q8H 14 days #42 tabs 10/16/22 03/05/23 03/05/23 Rx hydrocodone 5 mg-acetaminophen 325 1 tab PO BID PRN Pain 5 days #10 10/16/22 03/05/23 Unknown Rx mg tablet tabs furosemide 40 mg tablet 120 mg PO BID #180 tabs 10/24/22 03/05/2323 Rx dulaglutide 0.75 mg/0.5 mL 0.75 mg (0.5 mL) SUBCUT Q7D #2 mL 11/09/22 03/05/23 Unknown Rx subcutaneous pen injector (Trulicity) duloxetine 60 mg capsule,delayed 60 mg PO BID #60 caps 01/08/23 03/05/23 Unknown Rx release insulin glargine 100 unit/mL 90 unit (0.9 mL) SUBCUT BID #80 mL 01/24/23 03/05/23 03/05/23 Rx subcutaneous solution (Lantus U-100 Insulin) lorazepam 1 mg tablet 1 mg PO BID PRN anxiety #60 tabs 02/27/23 03/05/23 Unknown Rx Allergies Allergy/AdvReac Type Severity Reaction Status Date / Time morphine Allergy Severe Quit Verified 03/05/23 23:12 breathing amiodarone Allergy ALGY-Anaphy Verified 03/05/23 23:12 laxis shellfish derived AdvReac Severe Hives & Verified 03/05/23 23:12 throat swells meperidine [From Demerol] AdvReac Intermediate Made N & V Verified 03/05/23 23:12 Penicillins AdvReac Intermediate RAsh Verified 03/05/23 23:12 Current Medications Generic Name Dose Route Start Last Admin Trade Name Juliusq PRN Reason Stop Dose Admin Allopurinol 300 mg 03/06/23 09:00 03/06/23 08:46 Allopurinol 300 Mg Tablet PO 300 mg DAILY ANJU Administration Baclofen 5 mg 03/05/23 21:45 03/06/23 05:00 Baclofen 10 Mg Tablet PO 5 mg Q8H ANJU Administration Diltiazem HCl 120 mg 03/06/23 09:00 03/06/23 08:46 Diltiazem Er (24hr) 120 Mg Capsule PO 120 mg DAILY ANJU Administration Duloxetine HCl 60 mg 03/06/23 09:00 03/06/23 08:46 Duloxetine 60 Mg Capsule PO 60 mg BID ANJU Administration Insulin Glargine 90 unit 03/06/23 09:00 03/06/23 08:46 Insulin Glargine 100 Units/1 Ml SUBCUT Not Given BID ANJU Insulin Human Lispro 0 unit 03/06/23 08:00 03/06/23 11:32 Insulin Lispro 100 Unit/1 Ml SUBCUT Not Given WM&BEDTIME ANJU Protocol Lanolin 1 applic 03/05/23 21:55 03/05/23 22:12 Lanolin Oint 7 Gm TOPICAL 1 applic PRN PRN Administration DRYNESS Levothyroxine Sodium 50 mcg 03/06/23 09:00 03/06/23 08:46 Levothyroxine 50 Mcg Tablet PO 50 mcg DAILY ANJU Administration Metoprolol Tartrate 100 mg 03/06/23 09:00 03/06/23 08:46 Metoprolol Tartrate 50 Mg Tablet PO 100 mg BID ANJU Administration Nitroglycerin 1 patch 03/06/23 11:30 03/06/23 11:42 Nitroglycerin 0.1 Mg Patch TRANSDERMA 1 patch Q24H ANJU Administration Pantoprazole Sodium 40 mg 03/05/23 21:41 03/05/23 22:13 Pantoprazole 40 Mg Sdv IVP 40 mg Q24H ANJU Administration Pregabalin 50 mg 03/06/23 09:00 03/06/23 08:46 Pregabalin 50 Mg Capsule PO 50 mg BID ANJU Administration PFSH Acute PFSH: Medical History Amiodarone pulmonary toxicity Atrial fibrillation CAD (coronary artery disease) Last echocardiogram 08/06 with EF of 50% Chronic pain She reports taking pain medicines and muscle relaxers for a recent back injury; she has chronic left leg pain. Chronic respiratory failure CKD (chronic kidney disease) Community acquired pneumonia Depression Diabetes mellitus Diabetes type 2, uncontrolled Fibromyalgia Gout HTN (hypertension) Hypercholesteremia Hyperlipidemia Hypothyroidism Influenza A Major depressive disorder, recurrent severe without psychotic features MRSA (methicillin resistant staph aureus) culture positive Polypharmacy Psychiatric care Type 2 diabetes mellitus Vitamin B12 deficiency Surgical History H/O cardiac radiofrequency ablation H/O section H/O eye surgery H/O left knee surgery History of back surgery History of carpal tunnel release History of coronary artery stent placement History of hysterectomy partial History of incision and drainage Right breast abscess Hx of cholecystectomy Family History Mother Cancer breast Stroke Brother Heart disease Asthma Cancer prostate Sister Heart disease Social History Smoking and tobacco status: never smoked Alcohol intake: never Substance/Drug Use: never Housing: Other Details: Currently with her family Vitals/I&O/Wt Last Vital Signs Temp 98.3 F 03/06/23 08:44 Pulse 82 03/06/23 11:42 Resp 21 H 03/06/23 10:00 BP 136/91 03/06/23 11:42 Pulse Ox 92 03/06/23 10:00 O2 Del Method Room Air 03/06/23 08:44 O2 Flow Rate 3 03/06/23 08:00 03/05/23 03/06/23 03/06/23 22:59 06:59 14:59 Intake Total 480 / 480 130 / 130 Output Total 300 / 300 500 / 800 Balance -300 / -300 -20 / -320 130 / 130 Weight last 48 hrs Weight 283 lb Weight 220 lb Physical Exam Narrative: GENERAL: The patient is alert and oriented times three. Not in any acute distress. Obese HEENT: No significant pallor, icterus or lymphadenopathy.Oral cavity: There are no mucous membrane lesions. NECK: Trachea appears to be central. No masses noted. No JVD or thyromegaly appreciated. RESPIRATORY: Chest is symmetrical. No intercostals muscle retraction or any accessory muscle activation. There is no chest wall tenderness. Breath sounds are heard bilaterally. No rales or rhonchi heard. No evidence of any consolidation. BREASTS: Deferred. HEART: The heart sounds are normal. No S3 or S4. No significant murmurs. No pericardial rub ABDOMEN: No vessel pulsations or distention. No tenderness. No organomegaly appreciated. Bowel sounds are normally heard. : Deferred. RECTAL: Deferred. LYMPHATIC: No lymphadenopathy noted in the neck. EXTREMITIES: Trace edema with no cyanosis. Peripheral pulses are palpable but somewhat weak bilaterally MUSCULOSKELETAL: No acute joint deformities or swelling SKIN: There are no significant rashes or ecchymosis NEUROPSYCHIATRIC: The patient is alert and oriented x3. Appears to be in a good mood. No tremors or rigidity noted. Data 03/06/23 04:56 03/06/23 04:56 Other Labs: Laboratory Last Values WBC 8.52 10^3/uL (3.29-11.43) 03/06/23 04:56 RBC 4.81 10^6/uL (3.85-5.65) 03/06/23 04:56 Hgb 13.70 g/dL (11.27-16.99) 03/06/23 04:56 Hct 43.8 % (36-47) 03/06/23 04:56 MCV 91.1 fl (85-98) 03/06/23 04:56 MCH 28.5 pg (27-33) 03/06/23 04:56 MCHC 31.3 g/dL (30-55) 03/06/23 04:56 RDW 15.5 % (12.1-15.1) H 03/06/23 04:56 Plt Count 234 10^3/cmm (157-399) 03/06/23 04:56 MPV 10.6 fL (7.4-10.4) H 03/06/23 04:56 Neut % (Auto) 57.7 % 03/06/23 04:56 Lymph % (Auto) 25.8 % 03/06/23 04:56 [place] % (Auto) 10.4 % 03/06/23 04:56 Eos % (Auto) 4.7 % 03/06/23 04:56 Baso % (Auto) 0.8 % 03/06/23 04:56 Neut # (Auto) 4.91 10^3/uL (1.8-7.7) 03/06/23 04:56 Lymph # (Auto) 2.2 10^3/uL (0.8-4.8) 03/06/23 04:56 [place] # (Auto) 0.9 10^3/uL (0.2-0.9) 03/06/23 04:56 Eos # (Auto) 0.4 10^3/uL (0.0-0.8) 03/06/23 04:56 Baso # (Auto) 0.1 10^3/uL (0.0-0.1) 03/06/23 04:56 Nucleated RBC % (auto) 0 % 03/06/23 04:56 Nucleated RBCs # 0.0 /100WBC 03/06/23 04:56 PT 13.90 SECONDS (12.1-14.9) 03/05/23 16:32 INR 1.04 (0.8-1.2) 03/05/23 16:32 Sodium 145 mmol/L (136-145) 03/06/23 04:56 Potassium 3.2 mmol/L (3.5-5.1) L 03/06/23 04:56 Chloride 104 mmol/L (98-107) 03/06/23 04:56 Carbon Dioxide 33 mmol/L (22-29) H 03/06/23 04:56 Anion Gap 11.2 (5-19) 03/06/23 04:56 BUN 17 mg/dL (8-23) 03/06/23 04:56 Creatinine 1.3 mg/dL (0.5-0.9) H 03/06/23 04:56 GFR Calculation 40.7 mL/min (90-130) L 03/06/23 04:56 Glucose 116 mg/dL (65-115) H 03/06/23 04:56 POC Glucose 127 mg/dL (70-110) H 03/06/23 11:15 Estimat Average Glucose 163 03/06/23 04:56 Hemoglobin A1c 7.3 % (4.0-6.0) H 03/06/23 04:56 Calculated Osmolality 303 mOsm/kg (285-295) H 03/06/23 04:56 Calcium 8.9 mg/dL (8.5-10.5) 03/06/23 04:56 Phosphorus 4.3 mg/dL (2.5-4.5) 03/06/23 04:56 Magnesium 1.9 mg/dL (1.7-2.3) 03/06/23 04:56 Total Bilirubin 0.3 mg/dL (0.15-1.2) 03/06/23 04:56 AST 14 U/L (0-32) 03/06/23 04:56 ALT 15 U/L (0-33) 03/06/23 04:56 Alkaline Phosphatase 82 U/L (35-105) 03/06/23 04:56 Troponin T Baseline 22 ng/L (0-10) H 03/05/23 16:32 Troponin T 120 Minute 19.20 ng/L (0-10) H 03/05/23 19:15 Delta Troponin T -2.80 ABS# (0-10) L 03/05/23 19:15 Troponin T Hi Sens 6Hr 21.85 ng/L (0-10) H 03/05/23 22:34 Troponin T Hi Sens 6Hr Delta -0.15 ng/L (0-12) L 03/05/23 22:34 Total Protein 5.8 g/dL (6.6-8.7) L 03/06/23 04:56 Albumin 3.4 g/dL (3.5-5.2) L 03/06/23 04:56 Globulin 2.4 g/dL (1.3-4.6) 03/06/23 04:56 Triglycerides 321 mg/dL (0-150) H 03/06/23 04:56 Cholesterol 172 mg/dL (0-200) 03/06/23 04:56 LDL Cholesterol, Calc 77 mg/dL (50-129) 03/06/23 04:56 HDL Cholesterol 31 mg/dL (60-100) L 03/06/23 04:56 LDL/HDL Ratio 2.48 RATIO (0.00-3.22) 03/06/23 04:56 Cholesterol/HDL Ratio 5.55 mg/dL (0.0-4.40) H 03/06/23 04:56 Lipase 60 U/L (13-60) 03/05/23 16:32 Procalcitonin 0.09 ng/mL (0-0.5) 03/05/23 16:32 TSH 3.34 uIU/mL (0.27-4.20) 03/05/23 22:34 Urine Color Yellow (Yellow) 03/05/23 22:02 Urine Appearance Clear (CLEAR) 03/05/23 22:02 Urine pH 5 (5-7) 03/05/23 22:02 Ur Specific [place] 1.020 (1.005-1.030) 03/05/23 22:02 Urine Protein 3+ (Negative) H 03/05/23 22:02 Urine Glucose (UA) Trace (Normal) H 03/05/23 22:02 Urine Ketones Negative (Negative) 03/05/23 22:02 Urine Blood Neg (Negative) 03/05/23 22:02 Urine Nitrate Negative (Negative) 03/05/23 22:02 Urine Bilirubin Neg (Negative) 03/05/23 22:02 Urine Urobilinogen Norm mg/dL (Negative) 03/05/23 22:02 Ur Leukocyte Esterase Negative (Negative) 03/05/23 22:02 Urine RBC 0-4 /hpf (0-2) H 03/05/23 22:02 Urine WBC 5-10 /hpf (0-5) H 03/05/23 22:02 Ur Squamous Epith Cells 0-4 /hpf (0-5) H 03/05/23 22:02 Amorphous Sediment Not Reportable 03/05/23 22:02 Urine Bacteria Trace /hpf (NONE) 03/05/23 22:02 Hyaline Casts 5-10 /lpf H 03/05/23 22:02 Urine Mucus Trace /hpf 03/05/23 22:02 Myocardial perfusion imaging: My impression: 1. Abnormal myocardial perfusion imaging with large area of prior infarct with ?significant [place]-infarct ischemia seen in the left circumflex artery territory. ?2. Medium sized prior infarct with minimal [place]iana-infarct ischemia seen in the ?RCA territory. ?3. LV systolic function is mildly reduced. Echo: My impression: Echocardiogram done on 03/05/2023 LV systolic function is mildly reduced with EF of 45-50%. Mild ?global hypokinesis ?Diastolic function is indeterminate because of atrial ?fibrillation. ?Left atrial dilation ?Mild aortic regurgitation ?Mild tricuspid regurgitation ?Compared to prior echocardiogram from 2019, no significant ?changes are seen A&P Assessment and plan (1) Abnormal nuclear cardiac imaging test: The implications of the Myocardial perfusion imaging results were discussed with the patient in detail. In view of the patient's ongoing symptoms, in order to further evaluate her coronary status, she requires a cardiac catheterization. The risk of bleeding, hematoma, vascular injury, myocardial infarction, myocardial perforation, malignant cardiac arrhythmias ,CVA, renal failure and other concomitant complications were explained in detail. Patient carries a high risk for contrast-induced nephropathy in view of the chronic kidney disease . Patient seems understand this well. In view of the ongoing chest pains, I may start her on IV nitro (2) Atherosclerotic heart disease of [place] coronary artery with unstable angina pectoris: Possibility of in-stent stenosis versus progression of disease in the other vess els are considerations. For further evaluation of the coronary status, she requires a cardiac catheterization as mentioned above. (3) Atrial fibrillation: Patient is atrial fibrillation with a controlled ventricular response rate. May continue on the current measures. She is on Eliquis. She needs to be off the Eliquis for at least 48 hours before proceeding with the angiogram (4) CKD (chronic kidney disease): The kidney function seems to be stable (5) Diabetes mellitus: Close monitoring of the blood sugar would be appropriate. (6) Hyperlipidemia: May continue on the current management. (7) Benign hypertension: The blood pressure seems to be fairly under control. May continue on the current medications. Plan The other problems are Hypokalemia Reactive airway disease Obesity Based on the clinical progress, further recommendations will be made. We will try to do the cardiac catheterization as early as possible. Consult Attestations Medical Necessity Statement: Patient requires continued hospital stay for close monitoring and further management Coding Level of Care Code 72658 Diagnoses Abnormal nuclear cardiac imaging test R93.1 Atherosclerotic heart disease of [place] coronary artery with unstable angina pectoris I25.110 Atrial fibrillation I48.91 CKD (chronic kidney disease) N18.9 Diabetes mellitus E11.9 Hyperlipidemia E78.5 Benign hypertension I10
--- NOTE | 2023-03-06 13:44 | PM.PN ---
Subjective Subjective: No acute events overnight. Patient denies any nausea, vomiting, headache. Today morning on moving from bed to chair she started complaining of pain between her shoulder blades. Patient states she has similar pain whenever she has heart trouble. Denies any nausea along with the pain. Otherwise has remained hemodynamically stable and afebrile. Seen postcardiac stress test today. Blood work appreciated for stable CBC, CMP showing mild hypokalemia down to 3.2, creatinine of 1.3 at baseline, A1c of 7.3 Vitals/I&O/Wt Last Vital Signs Temp 98 F 03/06/23 12:00 Pulse 69 03/06/23 13:00 Resp 12 03/06/23 13:00 BP 136/91 03/06/23 12:00 Pulse Ox 98 03/06/23 12:00 O2 Del Method Nasal Cannula 03/06/23 12:00 O2 Flow Rate 3 03/06/23 12:00 03/05/23 03/06/23 03/06/23 22:59 06:59 14:59 Intake Total 480 / 480 370 / 370 Output Total 300 / 300 500 / 800 Balance -300 / -300 -20 / -320 370 / 370 Weight last 48 hrs Weight 128.367 kg Weight 128.367 kg Weight 99.79 kg Physical Exam Narrative: EXAM NARRATIVE: General: No acute distress, AO x3, NC oxygen supplementation at 3 L/min HEENT: PERRLA, pupils bilaterally equal and reactive Chest: equal good air entry bilaterally, fine basal crackles CVS: S1-S2 regular, no murmurs, no tachycardia, no gallops, no rubs Abdomen: Soft, nontender, no organomegaly, bowel sounds present, morbidly obese Neuro: No focal deficits, no facial deformity, AO x3, power 5/5 in all limbs Extremities right lower extremity 1+ pitting edema, patient states this is baseline. Data 03/06/23 04:56 03/06/23 04:56 A&P Assessment and plan (1) Unstable angina: With h/o CAD s/p PCI in past. No Stress or CAG in last 5-6 yrs. A1c 7.3, lipid panel appreciated. Echocardiogram results appreciated for an EF of 40 to 45%. No changes from last echocardiogram in 2019. Continue with aspirin 81 mg daily, Statin, BBlocker. For now continue with Lovenox 1mg/kg Q12h. We will switch to Eliquis on discharge. Lexiscan stress results appreciated for Pap being positive. Cardiology consulted for possible cardiac angiogram. Patient is agreeable. Patient complaining of angina. Start on nitro patch. (2) CAD (coronary artery disease): History of multiple PCI in the past. Most recent PCI seems to be in 2013 when she got proximal LAD stent. (3) Positive cardiac stress test: (4) Atrial fibrillation: Rate controlled. C/w Home dose of Cardizem and Metoprolol. AC as above (5) Hyperlipidemia: (6) CKD (chronic kidney disease): Baseline creat 1.4-1.9. At baseline. Continue to monitor daily. Med rec done for nephrotoxic drugs (7) Type 2 diabetes mellitus: A1c 7.3. Home dose of lantus 90 BID. Start ISS mod AC and HS (8) Chronic systolic dysfunction of left ventricle: Euvolemic. Continue with Lasix at 80 mg twice daily. Takes 120 mg twice daily at home. Monitor potassium. Replete 80 mg of oral potassium. Plan C/w other chronic meds. Full code Carb consistent cardiac diet. Lovenox will suffice as DVT ppx Protonix for PUD ppx. Attestations Medical Necessity Statement*: Requires further hospitalization for management of unstable angina with positive stress test in a patient with baseline CAD, congestive heart failure, hypokalemia Diagnoses Unstable angina I20.0 CAD (coronary artery disease) I25.10 Positive cardiac stress test R94.39 Atrial fibrillation I48.91 Hyperlipidemia E78.5 CKD (chronic kidney disease) N18.9 Type 2 diabetes mellitus E11.9 Chronic systolic dysfunction of left ventricle I51.9
[2023-03-06] MEDS: nitroglycerin drip 50 MG/250 ML PREMIX IV (14:04)
--- NOTE | 2023-03-06 15:25 | PC.NURSE ---
Patient made NPO after Dr. Chapman consult for laborer car barn this PM. Patient started on Nitro gtt and report called to LISA PARSON.
[2023-03-06 16:59] LABS: Glucose Point of Care 251 mg/dL (70-110)
[2023-03-06] MEDS: insulin lispro 100 unit/1 mL SUBCUT ×2 (17:27→21:19)
[2023-03-06] MEDS: insulin glargine 100 units/1 mL 90 UNIT SUBCUT (17:27)
[2023-03-06] MEDS: FUROsemide 40 mg Tablet 80 MG PO (17:28)
[2023-03-06] MEDS: HYDROcodone-acetaminophen 5-325 mg Tablet 1 TAB PO (17:28)
[2023-03-06] MEDS: atorvastatin 40 mg Tablet PO (17:29)
--- NOTE | 2023-03-06 19:56 | NMCV_ITS ---
NM [place]akota perf SPECT r/s* [id number] Shauna Sena Age: 67 Gender: F : 1955 Exam Date: 03/06/2023 06:45 Ordering Phys: Saleem Sharpe MD Technologist: HAVEN Denny Exam Location: [facility] Indications: CHEST PAIN STRESS TEST Please see separate stress test report in [facility] for full findings IMAGE PROTOCOL Rest/Stress 1 Lexiscan Day Radiopharmaceutical Dose (mCi) Administration Site Administered by Rest: Tc-99m 10.8 IV HAVEN Lopez Sestamibi Stress:Tc-99m 33.0 IV HAVEN Lopez Sestamibi Rest: 06-Mar-2023 60 Discovery 630 Stress: 06-Mar-2023 30 Discovery 630 0.4mg Lexiscan. Supine position only as patient was unable to lay prone. SPECT RESULTS Technical Quality: Good Raw Data Analysis: Breast attenuation, Soft tissue attenuation Image Corrections: No attenuation or motion correction applied Summed Stress Score: 16 Summed Rest Score: 11 Summed Difference Score: 6 PERFUSION FINDINGS There is a large in size, partially reversible perfusion defect noted in the inferolateral and anterolateral orellana. This is consistent with large sized area of prior infarct with significant tatiana-infarct ischemia in the left circumflex artery territory. There is a medium sized, mostly fixed perfusion defect noted in the inferior wall. This is consistent with medium sized area of prior infarct with minimal tatiana-infarct ischemia in RCA territory. FUNCTIONAL RESULTS (calculated via Gated SPECT) Stress Image LV EF (%): 44 Stress EDV (mL):107 TID: 0.88 Stress ESV (mL):60 FUNCTIONAL FINDINGS: LV systolic function is mildly reduced with EF of 44%. IMPRESSIONS 1. Abnormal myocardial perfusion imaging with large area of prior infarct with significant tatiana-infarct ischemia seen in the left circumflex artery territory. 2. Medium sized prior infarct with minimal tatiana-infarct ischemia seen in the RCA territory. 3. LV systolic function is mildly reduced. Seth Santillan MD (Electronically Signed) Final Date: 06 March 2023 08:58 S
[2023-03-06] MEDS: enoxaparin 120 mg/0.8 mL Syringe SUBCUT (20:01)
[2023-03-06] MEDS: pantoprazole 40 mg SDV IVP (20:02)
[2023-03-06 20:48] LABS: Glucose Point of Care 185 mg/dL (70-110)
[2023-03-07] VITALS (14 sets, daily range): BP systolic 124–155; BP diastolic 74–107; PULSE 58–108; RESP 12–20; TEMP 36.6–36.9; O2SAT 90–98
[2023-03-07 04:46] LABS: Basophils # 0.1 10^3/uL (0.0-0.1); Basophils % 0.9 %; Eosinophils # 0.4 10^3/uL (0.0-0.8); Eosinophils % 4.7 %; Hematocrit 46.7 % (36-47); Lymphocytes # 1.8 10^3/uL (0.8-4.8); Lymphocytes % 23.7 %; Mean Corpuscular HGB Conc 31.7 g/dL (30-55); Mean Corpuscular Volume 91.4 fl (85-98); Mean Platelet Volume 10.5 fL (7.4-10.4); Monocytes # 0.6 10^3/uL (0.2-0.9); Monocytes % 8.2 %; Neutrophils # 4.76 10^3/uL (1.8-7.7); Neutrophils % 61.8 %; Nucleated Red Blood Cells % 0 %; Platelet Count 252 10^3/cmm (157-399); Red Blood Count 5.11 10^6/uL (3.85-5.65); Red Cell Distribution Width 15.2 % (12.1-15.1); White Blood Count 7.69 10^3/uL (3.29-11.43)
[2023-03-07 05:10] LABS: Alanine Aminotransferase 12 U/L (0-33); Albumin Level 3.6 g/dL (3.5-5.2); Alkaline Phosphatase 89 U/L (35-105); Anion Gap 12.1 (5-19); Aspartate Amino Transferase 11 U/L (0-32); Blood Urea Nitrogen 18 mg/dL (8-23); Calcium 9.3 mg/dL (8.5-10.5); Carbon Dioxide 33 mmol/L (22-29); Chloride 103 mmol/L (98-107); Globulin 2.5 g/dL (1.3-4.6); Glomerular Filtration Rate 40.7 mL/min (90-130); Glucose 90 mg/dL (65-115); Osmolality Calculated 299 mOsm/kg (285-295); Potassium 4.1 mmol/L (3.5-5.1); Sodium 144 mmol/L (136-145); Total Bilirubin 0.5 mg/dL (0.15-1.2); Total Protein 6.1 g/dL (6.6-8.7)
[2023-03-07 06:14] LABS: Glucose Point of Care 92 mg/dL (70-110)
--- NOTE | 2023-03-07 07:46 | PC.NURSE ---
Patient's 0700 Lovenox is held due to her going to the nursery laborer at 0930.
--- NOTE | 2023-03-07 07:53 | PM.PN ---
Subjective Subjective: The patient is still having chest pains with activities. She seems to be doing okay at rest. No new arrhythmias on the monitor. The vital signs remained stable. No fever, chills or cough. Kidney function seems to be stable. Medications: Medication Review Details: Current Medications Acetaminophen (Acetaminophen 325 Mg Tablet) 650 mg PO Q6H PRN PRN Reason: Mild/Mod Pain Or Temp >/= 101 Hydrocodone Bitart/Acetaminophen (Hydrocodone-Acetaminophen 5-325 Mg Tablet) 1 tab PO BID PRN PRN Reason: MODERATE TO SEVERE Pain Last Admin: 03/06/23 17:28 Dose: 1 tab Albuterol Sulfate (Albuterol 2.5 Mg/3 Ml Neb) 2.5 mg INHALATION Q6H.RESP PRN PRN Reason: WHEEZING Albuterol/Ipratropium (Ipratropium-Albuterol 3 Ml Neb) 3 ml INHALATION Q6H.RESP PRN PRN Reason: SHORTNESS OF BREATH Allopurinol (Allopurinol 300 Mg Tablet) 300 mg PO DAILY [facility] Last Admin: 03/06/23 08:46 Dose: 300 mg Atorvastatin Calcium (Atorvastatin 40 Mg Tablet) 40 mg PO QPM ANJU Last Admin: 03/06/23 17:29 Dose: 40 mg Baclofen (Baclofen 10 Mg Tablet) 5 mg PO Q8H [facility] Last Admin: 03/07/23 05:52 Dose: Not Given Bisacodyl (Bisacodyl 5 Mg Tablet) 10 mg PO DAILY PRN; Protocol PRN Reason: Constipation (see protocol) Dextrose (Dextrose 50% Syringe 50 Ml) 50 ml IVP PRN PRN; Protocol PRN Reason: hypoglycemia protocol Dextrose (Dextrose 50% Syringe 50 Ml) 25 ml IVP ONCE PRN; Protocol PRN Reason: hypoglycemia protocol Diltiazem HCl (Diltiazem Er (24hr) 120 Mg Capsule) 120 mg PO DAILY [facility] Last Admin: 03/06/23 08:46 Dose: 120 mg Duloxetine HCl (Duloxetine 60 Mg Capsule) 60 mg PO BID [facility] Last Admin: 03/06/23 17:29 Dose: 60 mg Enoxaparin Sodium (Enoxaparin 120 Mg/0.8 Ml Syringe) 120 mg 1 mg/kg (100 mg) SUBCUT Q12H [facility] Last Admin: 03/07/23 07:46 Dose: Not Given Furosemide (Furosemide 40 Mg Tablet) 80 mg PO BID@08,16 [facility] Last Admin: 03/06/23 17:28 Dose: 80 mg Dextrose (D5w) 500 mls @ 100 mls/hr IV ONCE PRN; Protocol PRN Reason: Adult Acute Hypoglycemia Prot Nitroglycerin/Dextrose (Nitroglycerin Drip) 50 mg in 250 mls @ 0 mls/hr IV .Q0M [facility]; Protocol Last Admin: 03/06/23 14:04 Dose: 10 mcg/min, 3 mls/hr Sodium Chloride (Sodium Chloride 0.9%) 1,000 mls @ 50 mls/hr IV .Q20H ONE Stop: 03/07/23 16:52 Insulin Glargine (Insulin Glargine 100 Units/1 Ml) 90 unit SUBCUT BID [facility] Last Admin: 03/06/23 17:27 Dose: 90 unit Insulin Human Lispro (Insulin Lispro 100 Unit/1 Ml) 0 unit SUBCUT WM&BEDTIME [facility]; Protocol Last Admin: 03/06/23 21:19 Dose: 6 unit Lactulose (Lactulose Oral Liq 20 Gm/30 Ml Udc) 10 gm PO DAILY PRN; Protocol PRN Reason: Constipation (see protocol) Lanolin (Lanolin Oint 7 Gm) 1 applic TOPICAL PRN PRN PRN Reason: DRYNESS Last Admin: 03/05/23 22:12 Dose: 1 applic Levothyroxine Sodium (Levothyroxine 50 Mcg Tablet) 50 mcg PO DAILY [facility] Last Admin: 03/06/23 08:46 Dose: 50 mcg Lorazepam (Lorazepam 1 Mg Tablet) 1 mg PO BID PRN PRN Reason: anxiety Magnesium Hydroxide (Magnesium Hydroxide 30 Ml Udc) 30 ml PO DAILY PRN; Protocol PRN Reason: Constipation (see protocol) Metoprolol Tartrate (Metoprolol Tartrate 50 Mg Tablet) 100 mg PO BID [facility] Last Admin: 03/06/23 17:28 Dose: 100 mg Ondansetron HCl (Ondansetron 2 Mg/Ml Sdv 2 Ml) 4 mg IVP Q8H PRN PRN Reason: vomiting, or N/V if npo Pantoprazole Sodium (Pantoprazole 40 Mg Sdv) 40 mg IVP Q24H [facility] Last Admin: 03/06/23 20:02 Dose: 40 mg Pregabalin (Pregabalin 50 Mg Capsule) 50 mg PO BID [facility] Last Admin: 03/06/23 17:29 Dose: 50 mg Vitals/I&O/Wt Last Vital Signs Temp 97.9 F 03/07/23 03:59 Pulse 71 03/07/23 05:33 Resp 16 03/07/23 03:59 BP 124/76 03/07/23 03:59 Pulse Ox 98 03/07/23 03:59 O2 Del Method Nasal Cannula 03/06/23 20:00 O2 Flow Rate 3 03/06/23 20:00 03/06/23 03/07/23 03/07/23 22:59 06:59 14:59 Output Total 550 / 550 Balance -550 / -180 Weight last 48 hrs Weight 283 lb Weight 283 lb Weight 220 lb Physical Exam Narrative: GENERAL: The patient is alert and oriented times three. Not in any acute distress. HEENT: No significant pallor, icterus or lymphadenopathy.Oral cavity: There are no mucous membrane lesions. NECK: Trachea appears to be central. No masses noted. No JVD or thyromegaly appreciated. RESPIRATORY: Chest is symmetrical. No intercostals muscle retraction or any accessory muscle activation. There is no chest wall tenderness. Breath sounds are heard bilaterally. No rales or rhonchi heard. No evidence of any consolidation. BREASTS: Deferred. HEART: The heart sounds are normal. No S3 or S4. No significant murmurs. No pericardial rub ABDOMEN: No vessel pulsations or distention. No tenderness. No organomegaly appreciated. Bowel sounds are normally heard. : Deferred. RECTAL: Deferred. LYMPHATIC: No lymphadenopathy noted in the neck. EXTREMITIES: No edema or cyanosis. No clubbing. MUSCULOSKELETAL: No acute joint deformities or swelling SKIN: There are no significant rashes or ecchymosis NEUROPSYCHIATRIC: The patient is alert and oriented x3. Appears to be in a good mood. No tremors or rigidity noted. Data 03/07/23 03:43 03/07/23 03:43 Other Labs: Laboratory Last Values WBC 7.69 10^3/uL (3.29-11.43) 03/07/23 03:43 RBC 5.11 10^6/uL (3.85-5.65) 03/07/23 03:43 Hgb 14.80 g/dL (11.27-16.99) 03/07/23 03:43 Hct 46.7 % (36-47) 03/07/23 03:43 MCV 91.4 fl (85-98) 03/07/23 03:43 MCH 29.0 pg (27-33) 03/07/23 03:43 MCHC 31.7 g/dL (30-55) 03/07/23 03:43 RDW 15.2 % (12.1-15.1) H 03/07/23 03:43 Plt Count 252 10^3/cmm (157-399) 03/07/23 03:43 MPV 10.5 fL (7.4-10.4) H 03/07/23 03:43 Neut % (Auto) 61.8 % 03/07/23 03:43 Lymph % (Auto) 23.7 % 03/07/23 03:43 [place] % (Auto) 8.2 % 03/07/23 03:43 Eos % (Auto) 4.7 % 03/07/23 03:43 Baso % (Auto) 0.9 % 03/07/23 03:43 Neut # (Auto) 4.76 10^3/uL (1.8-7.7) 03/07/23 03:43 Lymph # (Auto) 1.8 10^3/uL (0.8-4.8) 03/07/23 03:43 [place] # (Auto) 0.6 10^3/uL (0.2-0.9) 03/07/23 03:43 Eos # (Auto) 0.4 10^3/uL (0.0-0.8) 03/07/23 03:43 Baso # (Auto) 0.1 10^3/uL (0.0-0.1) 03/07/23 03:43 Nucleated RBC % (auto) 0 % 03/07/23 03:43 Nucleated RBCs # 0.0 /100WBC 03/07/23 03:43 PT 13.90 SECONDS (12.1-14.9) 03/05/23 16:32 INR 1.04 (0.8-1.2) 03/05/23 16:32 Sodium 144 mmol/L (136-145) 03/07/23 03:43 Potassium 4.1 mmol/L (3.5-5.1) 03/07/23 03:43 Chloride 103 mmol/L (98-107) 03/07/23 03:43 Carbon Dioxide 33 mmol/L (22-29) H 03/07/23 03:43 Anion Gap 12.1 (5-19) 03/07/23 03:43 BUN 18 mg/dL (8-23) 03/07/23 03:43 Creatinine 1.3 mg/dL (0.5-0.9) H 03/07/23 03:43 GFR Calculation 40.7 mL/min (90-130) L 03/07/23 03:43 Glucose 90 mg/dL (65-115) 03/07/23 03:43 POC Glucose 92 mg/dL (70-110) 03/07/23 06:10 Estimat Average Glucose 163 03/06/23 04:56 Hemoglobin A1c 7.3 % (4.0-6.0) H 03/06/23 04:56 Calculated Osmolality 299 mOsm/kg (285-295) H 03/07/23 03:43 Calcium 9.3 mg/dL (8.5-10.5) 03/07/23 03:43 Phosphorus 4.3 mg/dL (2.5-4.5) 03/06/23 04:56 Magnesium 1.9 mg/dL (1.7-2.3) 03/06/23 04:56 Total Bilirubin 0.5 mg/dL (0.15-1.2) 03/07/23 03:43 AST 11 U/L (0-32) 03/07/23 03:43 ALT 12 U/L (0-33) 03/07/23 03:43 Alkaline Phosphatase 89 U/L (35-105) 03/07/23 03:43 Troponin T Baseline 22 ng/L (0-10) H 03/05/23 16:32 Troponin T 120 Minute 19.20 ng/L (0-10) H 03/05/23 19:15 Delta Troponin T -2.80 ABS# (0-10) L 03/05/23 19:15 Troponin T Hi Sens 6Hr 21.85 ng/L (0-10) H 03/05/23 22:34 Troponin T Hi Sens 6Hr Delta -0.15 ng/L (0-12) L 03/05/23 22:34 Total Protein 6.1 g/dL (6.6-8.7) L 03/07/23 03:43 Albumin 3.6 g/dL (3.5-5.2) 03/07/23 03:43 Globulin 2.5 g/dL (1.3-4.6) 03/07/23 03:43 Triglycerides 321 mg/dL (0-150) H 03/06/23 04:56 Cholesterol 172 mg/dL (0-200) 03/06/23 04:56 LDL Cholesterol, Calc 77 mg/dL (50-129) 03/06/23 04:56 HDL Cholesterol 31 mg/dL (60-100) L 03/06/23 04:56 LDL/HDL Ratio 2.48 RATIO (0.00-3.22) 03/06/23 04:56 Cholesterol/HDL Ratio 5.55 mg/dL (0.0-4.40) H 03/06/23 04:56 Lipase 60 U/L (13-60) 03/05/23 16:32 Procalcitonin 0.09 ng/mL (0-0.5) 03/05/23 16:32 TSH 3.34 uIU/mL (0.27-4.20) 03/05/23 22:34 Urine Color Yellow (Yellow) 03/05/23 22:02 Urine Appearance Clear (CLEAR) 03/05/23 22:02 Urine pH 5 (5-7) 03/05/23 22:02 Ur Specific [place] 1.020 (1.005-1.030) 03/05/23 22:02 Urine Protein 3+ (Negative) H 03/05/23 22:02 Urine Glucose (UA) Trace (Normal) H 03/05/23 22:02 Urine Ketones Negative (Negative) 03/05/23 22:02 Urine Blood Neg (Negative) 03/05/23 22:02 Urine Nitrate Negative (Negative) 03/05/23 22:02 Urine Bilirubin Neg (Negative) 03/05/23 22:02 Urine Urobilinogen Norm mg/dL (Negative) 03/05/23 22:02 Ur Leukocyte Esterase Negative (Negative) 03/05/23 22:02 Urine RBC 0-4 /hpf (0-2) H 03/05/23 22:02 Urine WBC 5-10 /hpf (0-5) H 03/05/23 22:02 Ur Squamous Epith Cells 0-4 /hpf (0-5) H 03/05/23 22:02 Amorphous Sediment Not Reportable 03/05/23 22:02 Urine Bacteria Trace /hpf (NONE) 03/05/23 22:02 Hyaline Casts 5-10 /lpf H 03/05/23 22:02 Urine Mucus Trace /hpf 03/05/23 22:02 A&P Assessment and plan (1) Abnormal nuclear cardiac imaging test: The implications of the Myocardial perfusion imaging results were discussed with the patient in detail. In view of the patient's ongoing symptoms, in order to further evaluate her coronary status, she requires a cardiac catheterization. The risk of bleeding, hematoma, vascular injury, myocardial infarction, myocardial perforation, malignant cardiac arrhythmias ,CVA, renal failure and other concomitant complications were explained in detail. Patient carries a high risk for contrast-induced nephropathy in view of the chronic kidney disease. Patient seems understand this well. We will continue on the IV nitro for the time being. Planning further cardiac rotation sometime today. She took the last dose of the Eliquis they will restart a morning around 9:00 (2) Atherosclerotic heart disease of [place] coronary artery with unstable angina pectoris: Possibility of in-stent stenosis versus progression of disease in the other vessels are considerations. For further evaluation of the coronary status, she requires a cardiac catheterization as mentioned above. (3) Atrial fibrillation: Patient is atrial fibrillation with a controlled ventricular response rate. May continue on the current measures. She is on Eliquis. She needs to be off the Eliquis for at least 48 hours before proceeding with the angiogram (4) CKD (chronic kidney disease): The kidney function seems to be stable. We will continue on the current measures. Careful IV hydration. (5) Diabetes mellitus: Close monitoring of the blood sugar would be appropriate. (6) Hyperlipidemia: May continue on the current management. (7) Benign hypertension: The blood pressure seems to be fairly under control. May continue on the current medications. Plan The other problems are Hypokalemia , currently normokalemic Reactive airway disease , clinically stable Obesity Based on the clinical progress and the results of the above, further management decisions will be made. Attestations Medical Necessity Statement*: Patient requires continued hospital stay for close monitoring and further management Coding Level of Care Code 76704 Diagnoses Abnormal nuclear cardiac imaging test R93.1 Atherosclerotic heart disease of [place] coronary artery with unstable angina pectoris I25.110 Atrial fibrillation I48.91 CKD (chronic kidney disease) N18.9 Diabetes mellitus E11.9 Hyperlipidemia E78.5 Benign hypertension I10
[2023-03-07] MEDS: diphenhydrAMINE 50 mg Capsule PO (08:35)
[2023-03-07] MEDS: aspirin 325 mg Tablet PO (08:35)
[2023-03-07] MEDS: sodium chloride 0.9% 1,000 ML 50 ML IV (08:35)
[2023-03-07] MEDS: FUROsemide 40 mg Tablet 80 MG PO ×2 (08:35→18:42)
--- NOTE | 2023-03-07 08:57 | XACV_ITS ---
Exam Room: 2 Ht: 173 cm Wt: 128 kg BSA: 2.55 m2 Gender: Female : 1955 Any Known Allergies: Shellfish Exam Priority: Routine Procedure(s): Procedure Description: Diagnostic procedure Procedure Description: PCI procedure Procedure Description: Left Heart Catheterization Procedure Description: Drug Eluting Coronary Stent Procedure Description: PTCA Procedure Description: Miscellaneous Procedure Description: ACT Procedure Description: Coronary Angiography Ari KERNS; Diagnostic Cath Status: Urgent Diagnostic Findings * INDICATION: Chest pain/ Abnormal stress test. * Left Main has no significant disease. * Circumflex has no significant disease. Patent prior stent. * Right Coronary Artery has mild luminal irregularities. * LAD has proximal to mid vessel prior stent. At distal edge of the stent, there is a hazy significant 80% stenosis with a filling defect. Possible thrombus. After takeoff of diagonal artery, there is another 60 to 70% stenosis. . * Coronary angiography shows right dominance. PCI Status: Urgent PCI Indication: Other Interventional Findings * Mid Left Anterior Descendin% stenosis treated with a AB TREK 2.50X12 RX BALLOON, and NITZA Flanagan IZABELLA 2.75X22 EDD. 0% residual stenosis, BROOKS: 3 flow. * Procedure detail: We engaged left main artery with XB 3. 5 guide catheter. IV heparin was administered to maintain anticoagulation. 0.014 run-through guidewire was used to cross the mid to vessel stenosis and was put in distal vessel. We predilated the stenosis with 2.5 x 12 mm semicompliant balloon. This was followed by placement of 2.75x22 mm resolute [place] drug-eluting stent. At this time final angiogram was performed that showed excellent stent expansion, no residual stenosis and BROOKS-3 flow. Guidewire and guide catheter were removed. Patient left the Laborer Electroplating in a stable condition. Conclusions 1. Severe mid LAD stenosis status post PCI with 1 stent.. 2. Mid Left Anterior Descending was treated with a Balloon, and Drug Eluting Stent. Recommendations * Eliquis and Plavix for at least 1 year.. * High intensity statin therapy. * Outpatient cardiology follow up in 4 weeks. Interventional RX Recommendation: PCI w/o planned CABG Diagnostic RX Recommendation: PCI w/o planned CABG Anticoagulation: Heparin Pressures Phase:Rest AO : 147 / 75 ( 106 ) @ 12:33:00 PM 156 / 80 ( 111 ) @ 12:39:00 PM 156 / 80 ( 110 ) @ 12:39:00 PM 160 / 92 ( 105 ) @ 12:41:00 PM 123 / 90 ( 106 ) @ 12:54:00 PM LV : 152 / -8 / 11 @ 12:39:00 PM 150 / -8 / 14 @ 12:39:00 PM Valves Phase:DefaultPhase AV : 0.0 @ 12:09:54 PM 0.0 @ 12:09:54 PM AV Mean Gradient: 0.0 @ 12:09:54 PM 0.0 @ 12:09:54 PM Clinical Evaluation EBL: 5mL-10mL Procedural Details Pre-Procedure Time Out. Identified patient by full name and date of as verbalized by the patient/guarantor. Does the consent match the physician's order: Yes. Accurate & Complete Informed Consent: Yes. Inpatient/Outpatient History & Physical on Chart: Yes. If H&P is completed, is and addenduem needed: No; If yes, is the addendum complete: N/A. Visualize and Verify Site with Patient/Guarantor: N/A. Relevant Radiology Images available: Yes. Pre-op teaching completed and patient verbalized understanding. The risks, benefits, and alternatives of sedation and/or procedure were discussed by physician. The patient agrees to continue. Procedure started. [facility] Clinical Fraility Score: 4: Vulnerable. Laborer Electroplating Indications: Worsening Angina. Chest Pain Symptom Assessment: Typical Angina Symptoms. Correct patient, site and procedure confirmed by cath team. Current diagnosis: Chest Pain, Abnormal stress test. PERRLA. 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 Lungs clear x 5 lobes. IV Site on Arrival: 20 gauge in the right anticubital. IV Fluids: 0.9% NaCl at KVO. 50 mL infused prior to calibration laboratory technician. Pre Procedural Pulses: bilateral dorsalis pedis was Doppled. Pre Procedural Pulses: bilateral posterior tibial was Doppled. Pre Procedural Pulses: bilateral radial was 1+. Oxygen started at 3liters/min via nasal canula. bilateral groins was prepped with chloroprep then draped in the usual sterile fashion. Physician notified. Baseline sample Acquired. HR: 81 BPM. Physician arrived. Physician scrubbed in. Immediate Pre-Procedure Time Out. Correct Patient: Yes; Correct Procedure: Yes; Correct Site: Yes; Correct Patient Position: Yes; Correct Supplies: Yes; Dried Flammable Prep: Yes; Blood Products Available: No;. Lidocaine 1% infiltrated to the right groin. Arterial access obtained with micropuncture set. A 5 norwegian JL4 catheter in over wire. Multiple views taken of left coronary artery. Catheter removed over the standard wire. A 5 norwegian JR4 catheter in over wire. Multiple views taken of right coronary artery. EDP Sample taken: LV 152/-9,11; HR: 96 BPM; SpO2: 96%. Pullback taken: LV 150/-9,14; AO 156/80(111); Mean: 0mmHg, Peak to Peak: 0mmHg, SEP: 9sec/min; HR: 101 BPM; SpO2: 97%. Catheter removed over the standard wire. 6 norwegian XB 3.5 guide catheter was inserted over the wire. Runthrough guidewire was advanced through the guide catheter to lesion in the mid LAD. Guidewire advanced across lesion. Balloon inserted to lesion in the mid LAD. Inflation number : 1 A AB TREK 2.50X12 RX BALLOON was prepped and advanced across the Mid LAD , then inflated to 10 JERMAN for 0:16 seconds. Inflation number: 2 The AB TREK 2.50X12 RX BALLOON was reinflated across the Mid LAD, to 12 JERMAN for 0:09 seconds. Balloon out. Results checked. Stent inserted to lesion in the mid LAD. Inflation Number : 3 A MDFrankie Flanagan IZABELLA 2.75X22 EDD -Lot Number#[id number] EXP 05-26-2024 was prepped and advanced across the Mid LAD. The stent was deployed at 12 JERMAN for 0:16 seconds. Inflation number: 4 The stent balloon was then re-inflated across the Mid LAD to 12 JERMAN for 0:15 seconds. Stent balloon and wire out. Results checked. ACT drawn. Results - out of range high results. Therapeutic limits - pre-heparin administration 90-150 seconds and monitoring heparin during a vascular procedure >250 seconds. Guide catheter out. A Right femoral angiogram was performed to determine safe placement of closure device. Lidocaine 1% infiltrated to the right groin. A Angio-Seal VIP ([facility]) was successful obtaining hemostatsis at the Right Femoral artery insertion site. EXP 09-16-2023 LOT # [id number]. Post Procedure: Pulses reassessed and unchanged. PERRLA. 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 No VTE prophylaxis required. Post-op diagnosis: Severe mid LAD stenosis, status post PCI placement of 1 stent. Complications: None. Estimated blood loss: 5mL-10mL. Responsiveness - Normal response to verbal stimuli; alert and oriented, PERRLA. Airway - Unaffected, no intervention required; spontaneous ventilation. Circulation: W/N/L, pulses unchanged. Nausea/Vomiting: No. Medication's Wasted: Lidocaine 1% = 1 mL. Medication's Wasted: Nitro = 49.8 mg. Medication's Wasted: Heparin = 1000 unit. Medication's Wasted: Other = Fentanyl 50 mcg. Total IV fluids: 65 mL. Procedure completed. Patient transferred by bed to 1st floor. Vital chart was stopped. Access Site Site: Right Femoral artery Sheath Size: 6 Fr Hemostasis Method: Angio-Seal VIP ([facility]) Hemostasis Success: Successful Procedure Medications Start: 11:15 AM Stop: 11:15 AM Medication: Solu-Medrol (methylprednisolone) Amount: 125 mg Route: I.V. Start: 11:29 AM Stop: 11:29 AM Medication: Versed Amount: 1 mg Route: I.V. Start: 11:29 AM Stop: 11:29 AM Medication: Fentanyl Amount: 50 mcg Route: I.V. Start: 11:40 AM Stop: 11:40 AM Medication: Heparin Amount: 51035 units Route: I.V. Start: 11:42 AM Stop: 11:42 AM Medication: Versed Amount: 1 mg Route: I.V. Start: 11:51 AM Stop: 11:51 AM Medication: Nitrogylcerin Amount: 200 mcg Route: I.C. Start: 12:03 PM Stop: 12:03 PM Medication: Plavix Amount: 600 mg Route: P.O. I, the attending physician, have reviewed and verified all procedure medications. Yes, all medications given per verbal order History/Risk Factors Hypertension: Yes Dyslipidemia: No Peripheral Arterial Disease (PAD): No Myocardial Infarction (LA): No Obesity: Yes Renal Disease: No Tobacco Use: Never Prior Interventions PCI: No CABG: No Valve Surgery: No Report Signatures Finalized by Seth Santillan MD on 03/11/2023 02:15 PM
--- NOTE | 2023-03-07 10:25 | PC.CHAP ---
Pastoral Care Encounter/Spiritual Assessment Type of Contact [] Declined fancy packer visit [] Patient/Family/Request visit [] Outpatient visit [] Follow-up visit [] Physician referral [] Code/Alert [x] Routine visit [] Staff referral [] Actively dying [] Patient sleeping [] Family support [] [] Out of room [] Palliative care [] [] Receiving care in room [] Pre-surgical visit [] Trauma [] Long length of stay [] ICU visit [] Other: Relational/Emotional Strength [x] Patient feels connected with others/family/visitors/staff [] Distress [] Loneliness/isolation [] Abandonment Spirituality of Patient [x] Person of [place] [] Attends Pentecostalism of their [place] [x] Believes in Prayer [] Reads Bible or Caodaism materials [] There are Spiritual issues to be addressed Media Producer Interventions [x] Prayer [x] Active listening [] Non-anxious presence [] Spiritual/emotional support [] Crisis/trauma care [] Spiritual counseling [] Bereavement support [] Provided bereavement packet [] Provided Bible/devotional materials [] Provided toy/stuffed animal, coloring book to patient or family member [] Provided Communion [] Anointing/[place] [] Salvation [] Completed spiritual assessment [] Other: Impact on Illness or Injury [] Angry [] Fearful [] Anxious [] Often cries [] Exhaustion [] Unable to work [] Unable to attend jain [] Unable to walk/stand [] Unable to read [] Unable to drive [] Unable to eat/drink [] Unable to sleep [] Unable to be with family [] Patient intubated [] Other: Summary patient feeling better , would like prayer each day Time spent with patient 10 min
--- NOTE | 2023-03-07 10:27 | PC.CHAP ---
Pastoral Care Encounter/Spiritual Assessment Type of Contact [] Declined forest pathologist visit [] Patient/Family/Request visit [] Outpatient visit [] Follow-up visit [] Physician referral [] Code/Alert [x] Routine visit [] Staff referral [] Actively dying [] Patient sleeping [] Family support [] [] Out of room [] Palliative care [] [] Receiving care in room [] Pre-surgical visit [] Trauma [] Long length of stay [] ICU visit [] Other: Relational/Emotional Strength [x] Patient feels connected with others/family/visitors/staff [] Distress [] Loneliness/isolation [] Abandonment Spirituality of Patient [x] Person of [place] [] Attends Scientologist of their [place] [x] Believes in Prayer [] Reads Bible or Lutheran materials [] There are Spiritual issues to be addressed [employer] Interventions [x] Prayer [x] Active listening [] Non-anxious presence [] Spiritual/emotional support [] Crisis/trauma care [] Spiritual counseling [] Bereavement support [] Provided bereavement packet [] Provided Bible/devotional materials [] Provided toy/stuffed animal, coloring book to patient or family member [] Provided Communion [] Anointing/[place] [] Salvation [] Completed spiritual assessment [] Other: Impact on Illness or Injury [] Angry [] Fearful [] Anxious [] Often cries [] Exhaustion [] Unable to work [] Unable to attend confucianism [] Unable to walk/stand [] Unable to read [] Unable to drive [] Unable to eat/drink [] Unable to sleep [] Unable to be with family [] Patient intubated [] Other: Summary patient would like prayer each day Time spent with patient 10 min
--- NOTE | 2023-03-07 11:05 | W.PM.OPSUD ---
Surgery/Procedure H&P Update DATE OF PROCEDURE: March 07, 2023 DATE H&P PERFORMED: 03/06/23 H&P UPDATE INFORMATION: I have reviewed H&P completed within last 30 days, I have examined patient prior to procedure and No changes to prior documentation PREOP DIAGNOSIS: Chest pain/ Abnormal stress test PRIMARY INDICATION FOR PROCEDURE: Chest pain/ Abnormal stress test PLANNED PROCEDURE: Operation Date: 03/07/23 09:20 Proposed Procedures p Cardiac Catheterization(Left) - Seth Santillan MD Possible percutaneous coronary intervention PATIENT REASSESSED PRIOR TO SEDATION, WITH NO CHANGE NOTED: Yes PHYSICAL EXAM: alert, oriented x 3, clear to auscultation bilaterally and regular rate & rhythm AIRWAY EVAL/ANESTHESIA PLAN: normal airway, ASA III, Local Anesthesia, Risks, benefits & alternatives of sedation and/or procedure discussed and Patient agrees to continue as planned ADDITIONAL INFORMATION: Moderate sedation
[2023-03-07 11:16] LABS: Glucose Point of Care 110 mg/dL (70-110)
--- NOTE | 2023-03-07 12:09 | PC.NURSE ---
Patient left unit at 1130 for can labeler procedure.
--- NOTE | 2023-03-07 12:16 | PM.MISC ---
Miscellaneous Note Purpose of Documentation: Brief left heart cath note Note: Mid LAD has hazy stenosis in prior stent with another serial 70% stenosis post stent. She underwent successful revascularization with DESx 1. RCA and LCx are patent. PLAN: Transfer to [facility] Dual antiplatelet therapy with aspirin and plavix. At time of discharge home tomorrow, can be sent on plavix and eliquis High intensity statin therapy
[2023-03-07] MEDS: allopurinol 300 mg Tablet PO (12:44)
[2023-03-07] MEDS: dilTIAZem ER (24HR) 120 mg Capsule PO (12:45)
[2023-03-07] MEDS: pregabalin 50 mg Capsule PO ×2 (12:45→18:02)
[2023-03-07] MEDS: metoprolol tartrate 50 mg Tablet 100 MG PO ×2 (12:45→18:02)
[2023-03-07] MEDS: duloxetine 60 mg Capsule PO ×2 (12:45→18:02)
[2023-03-07] MEDS: levothyroxine 50 mcg Tablet PO (12:45)
--- NOTE | 2023-03-07 13:23 | P.PN_ITS ---
Subjective Subjective: No acute events overnight. Plan for cardiac angiogram today. Patient still complaining of mild chest discomfort on exertion. Have maintained on nitro drip. Denies any nausea, vomiting, headache. Blood work appreciated for stable CBC and a CMP with creatinine around baseline of 1.3. Vitals/I&O/Wt Last Vital Signs Temp 97.9 F 03/07/23 03:59 Pulse 94 03/07/23 13:07 Resp 20 H 03/07/23 13:07 BP 152/107 03/07/23 13:07 Pulse Ox 97 03/07/23 12:21 O2 Del Method Nasal Cannula 03/07/23 13:07 O2 Flow Rate 3 03/07/23 13:07 03/06/23 03/07/23 03/07/23 22:59 06:59 14:59 Output Total 550 / 550 Balance -550 / -180 Weight last 48 hrs Weight 127.459 kg Weight 128.367 kg Weight 128.367 kg Weight 99.79 kg Physical Exam Narrative: EXAM NARRATIVE: General: No acute distress, AO x3, NC oxygen supplementation at 3 L/min HEENT: PERRLA, pupils bilaterally equal and reactive Chest: equal good air entry bilaterally, fine basal crackles CVS: S1-S2 regular, no murmurs, no tachycardia, no gallops, no rubs Abdomen: Soft, nontender, no organomegaly, bowel sounds present, morbidly obese Neuro: No focal deficits, no facial deformity, AO x3, power 5/5 in all limbs Extremities right lower extremity 1+ pitting edema, patient states this is baseline. Data 03/07/23 03:43 03/07/23 03:43 A&P Assessment and plan (1) Unstable angina: With h/o CAD s/p PCI in past. No Stress or CAG in last 5-6 yrs. A1c 7.3, lipid panel appreciated. Echocardiogram results appreciated for an EF of 40 to 45%. No changes from last echocardiogram in 2019. Continue with aspirin 81 mg daily, Statin, BBlocker. For now continue with Lovenox 1mg/kg Q12h. We will switch to Eliquis on discharge. Lexiscan stress results appreciated for Pap being positive. Cardiology consulted for possible cardiac angiogram. Patient is agreeable. Patient complaining of angina. Start on nitro patch. (2) CAD (coronary artery disease): History of multiple PCI in the past. Most recent PCI seems to be in 2013 when she got proximal LAD stent. (3) Positive cardiac stress test: (4) Atrial fibrillation: Rate controlled. C/w Home dose of Cardizem and Metoprolol. AC as above (5) Hyperlipidemia: (6) CKD (chronic kidney disease): Baseline creat 1.4-1.9. At baseline. Continue to monitor daily. Med rec done for nephrotoxic drugs (7) Type 2 diabetes mellitus: A1c 7.3. Home dose of lantus 90 BID. Start ISS mod AC and HS (8) Chronic systolic dysfunction of left ventricle: Euvolemic. Continue with Lasix at 80 mg twice daily. Takes 120 mg twice daily at home. Monitor potassium. Replete 80 mg of oral potassium. Plan C/w other chronic meds. Full code Carb consistent cardiac diet. Lovenox will suffice as DVT ppx Protonix for PUD ppx. Plan for the day: Plan for cardiac angiogram today for cardiac stress test in setting of CAD and severe unstable angina. Continue with nitro drip. Monitor blood pressures. Continue with full dose Lovenox for now. Hold as per cardiology for cardiac angiogram. Plan to switch to Eliquis prior to discharge. Goal blood pressure less than 140/90 mmHg. Continue with home dose of Cardizem, metoprolol. Monitor creatinine post cardiac angiogram. Continue with home dose of Lantus 90 twice daily and insulin sliding scale for now. Attestations Medical Necessity Statement*: Requires further hospitalization for cardiac angiogram in setting of positive s tress test, unstable angina in a patient with baseline CAD post PCI Diagnoses Unstable angina I20.0 CAD (coronary artery disease) I25.10 Positive cardiac stress test R94.39 Atrial fibrillation I48.91 Hyperlipidemia E78.5 CKD (chronic kidney disease) N18.9 Type 2 diabetes mellitus E11.9 Chronic systolic dysfunction of left ventricle I51.9
--- NOTE | 2023-03-07 13:26 | PC.NURSE ---
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 Vitals stables. No hematoma noted. No chest pain.
[2023-03-07 15:32] LABS: Partial Thromboplastin Time 84.6 SECONDS (23.9-36.7)
[2023-03-07] MEDS: hydrocortisone 100 mg/2 mL SDV 50 MG IVP (15:50)
[2023-03-07] MEDS: baclofen 10 mg Tablet 5 MG PO ×2 (15:50→20:41)
[2023-03-07 17:03] LABS: Glucose Point of Care 245 mg/dL (70-110)
[2023-03-07] MEDS: insulin lispro 100 unit/1 mL SUBCUT ×2 (18:01→20:41)
[2023-03-07] MEDS: insulin glargine 100 units/1 mL 90 UNIT SUBCUT (18:01)
[2023-03-07] MEDS: atorvastatin 40 mg Tablet PO (18:02)
--- NOTE | 2023-03-07 19:31 | PC.NURSE ---
Patient is s/p [facility] with PCI via right femoral artery and angioseal in place. Dressing to right groin remains c,d,i with no s/s of bleeding or hematoma formation observed. Discussed site care and restrictions. Patient verbalized complete understanding. Will continue
[2023-03-07 20:30] LABS: Glucose Point of Care 408 mg/dL (70-110)
[2023-03-07] MEDS: pantoprazole 40 mg SDV IVP (20:40)
--- NOTE | 2023-03-07 22:44 | PC.NURSE ---
This RN agrees with all documentation performed by SN Joshua. Will continue to monitor.
[2023-03-08 04:30] VITALS: BP 147/74; PULSE 91; RESP 16; TEMP 36.6; O2SAT 91
[2023-03-08] MEDS: baclofen 10 mg Tablet 5 MG PO (04:36)
[2023-03-08 05:05] LABS: Basophils % 0.1 %; Hematocrit 44.7 % (36-47); Lymphocytes % 9.5 %; Mean Corpuscular HGB Conc 31.8 g/dL (30-55); Mean Corpuscular Hemoglobin 28.5 pg (27-33); Mean Corpuscular Volume 89.8 fl (85-98); Mean Platelet Volume 10.6 fL (7.4-10.4); Monocytes # 0.1 10^3/uL (0.2-0.9); Monocytes % 1.3 %; Neutrophils # 8.82 10^3/uL (1.8-7.7); Neutrophils % 88.3 %; Nucleated Red Blood Cells % 0 %; Platelet Count 282 10^3/cmm (157-399); Red Blood Count 4.98 10^6/uL (3.85-5.65); Red Cell Distribution Width 14.8 % (12.1-15.1); White Blood Count 9.99 10^3/uL (3.29-11.43)
[2023-03-08 05:27] LABS: Albumin Level 3.7 g/dL (3.5-5.2); Alkaline Phosphatase 92 U/L (35-105)
[2023-03-08 05:59] LABS: Alanine Aminotransferase 12 U/L (0-33); Anion Gap 15.9 (5-19); Aspartate Amino Transferase 9 U/L (0-32); Blood Urea Nitrogen 24 mg/dL (8-23); Calcium 9.4 mg/dL (8.5-10.5); Carbon Dioxide 29 mmol/L (22-29); Chloride 98 mmol/L (98-107); Globulin 2.5 g/dL (1.3-4.6); Glomerular Filtration Rate 34.5 mL/min (90-130); Glucose 321 mg/dL (65-115); Osmolality Calculated 304 mOsm/kg (285-295); Potassium 3.9 mmol/L (3.5-5.1); Sodium 139 mmol/L (136-145); Total Bilirubin 0.4 mg/dL (0.15-1.2); Total Protein 6.2 g/dL (6.6-8.7)
[2023-03-08 06:00] VITALS: PULSE 94
[2023-03-08 06:13] LABS: Glucose Point of Care 327 mg/dL (70-110)
[2023-03-08 08:00] VITALS: PULSE 88; RESP 16; O2SAT 93
[2023-03-08] MEDS: insulin lispro 100 unit/1 mL SUBCUT ×2 (08:40→12:30)
[2023-03-08] MEDS: insulin glargine 100 units/1 mL 90 UNIT SUBCUT (08:40)
[2023-03-08] MEDS: FUROsemide 40 mg Tablet 80 MG PO (08:41)
[2023-03-08] MEDS: dilTIAZem ER (24HR) 120 mg Capsule PO (08:41)
[2023-03-08] MEDS: pregabalin 50 mg Capsule PO (08:41)
[2023-03-08] MEDS: metoprolol tartrate 50 mg Tablet 100 MG PO (08:41)
[2023-03-08] MEDS: duloxetine 60 mg Capsule PO (08:41)
[2023-03-08] MEDS: allopurinol 300 mg Tablet PO (08:41)
[2023-03-08] MEDS: aspirin 81 mg EC Tablet PO (08:41)
[2023-03-08] MEDS: clopidogrel 75 mg Tablet PO (08:41)
[2023-03-08] MEDS: levothyroxine 50 mcg Tablet PO (08:41)
--- NOTE | 2023-03-08 09:22 | PM.PN ---
Subjective Subjective: Patient had the cardiac catheterization catheterization yesterday through the right groin. She was found to have in-stent stenosis in the LAD. She underwent PCI of this lesion. She had an uneventful post procedure course. She has not had any recurrence of chest pain since the intervention. No fever or chills. No cough. Her CHEM profile today revealed a BUN of 24 with a creatinine of 1.5. No significant change from the previous numbers. Medications: Medication Review Details: Current Medications Acetaminophen (Acetaminophen 325 Mg Tablet) 650 mg PO Q6H PRN PRN Reason: Mild/Mod Pain Or Temp >/= 101 Hydrocodone Bitart/Acetaminophen (Hydrocodone-Acetaminophen 5-325 Mg Tablet) 1 tab PO BID PRN PRN Reason: MODERATE TO SEVERE Pain Last Admin: 03/06/23 17:28 Dose: 1 tab Al Hydrox/Mg Hydrox/Simethicone (Hxnk-Rrv-Rfbejisof-Robert 30 Ml Udc) 30 ml PO Q15M PRN PRN Reason: INDIGESTION Albuterol Sulfate (Albuterol 2.5 Mg/3 Ml Neb) 2.5 mg INHALATION Q6H.RESP PRN PRN Reason: WHEEZING Albuterol/Ipratropium (Ipratropium-Albuterol 3 Ml Neb) 3 ml INHALATION Q6H.RESP PRN PRN Reason: SHORTNESS OF BREATH Allopurinol (Allopurinol 300 Mg Tablet) 300 mg PO DAILY [facility] Last Admin: 03/08/23 08:41 Dose: 300 mg Alprazolam (Alprazolam 0.5 Mg Tablet) 0.25 mg PO TID PRN PRN Reason: ANXIETY Aspirin (Aspirin 81 Mg Ec Tablet) 81 mg PO DAILY [facility] Last Admin: 03/08/23 08:41 Dose: 81 mg Atorvastatin Calcium (Atorvastatin 40 Mg Tablet) 40 mg PO QPM [facility] Last Admin: 03/07/23 18:02 Dose: 40 mg Atropine Sulfate (Atropine 1 Mg/Ml Sdv 1 Ml) 0.5 mg IVP PRN PRN PRN Reason: Symptomatic bradycardia Baclofen (Baclofen 10 Mg Tablet) 5 mg PO Q8H [facility] Last Admin: 03/08/23 04:36 Dose: 5 mg Bisacodyl (Bisacodyl 5 Mg Tablet) 10 mg PO DAILY PRN; Protocol PRN Reason: Constipation (see protocol) Clopidogrel Bisulfate (Clopidogrel 75 Mg Tablet) 75 mg PO DAILY [facility] Last Admin: 03/08/23 08:41 Dose: 75 mg Dextrose (Dextrose 50% Syringe 50 Ml) 50 ml IVP PRN PRN; Protocol PRN Reason: hypoglycemia protocol Dextrose (Dextrose 50% Syringe 50 Ml) 25 ml IVP ONCE PRN; Protocol PRN Reason: hypoglycemia protocol Diltiazem HCl (Diltiazem Er (24hr) 120 Mg Capsule) 120 mg PO DAILY [facility] Last Admin: 03/08/23 08:41 Dose: 120 mg Duloxetine HCl (Duloxetine 60 Mg Capsule) 60 mg PO BID [facility] Last Admin: 03/08/23 08:41 Dose: 60 mg Enoxaparin Sodium (Enoxaparin 120 Mg/0.8 Ml Syringe) 120 mg 1 mg/kg (100 mg) SUBCUT Q12H [facility] Last Admin: 03/07/23 07:46 Dose: Not Given Furosemide (Furosemide 40 Mg Tablet) 80 mg PO BID@08,16 [facility] Last Admin: 03/08/23 08:41 Dose: 80 mg Dextrose (D5w) 500 mls @ 100 mls/hr IV ONCE PRN; Protocol PRN Reason: Adult Acute Hypoglycemia Prot Insulin Glargine (Insulin Glargine 100 Units/1 Ml) 90 unit SUBCUT BID [facility] Last Admin: 03/08/23 08:40 Dose: 90 unit Insulin Human Lispro (Insulin Lispro 100 Unit/1 Ml) 0 unit SUBCUT WM&BEDTIME [facility]; Protocol Last Admin: 03/08/23 08:40 Dose: 12 unit Lactulose (Lactulose Oral Liq 20 Gm/30 Ml Udc) 10 gm PO DAILY PRN; Protocol PRN Reason: Constipation (see protocol) Lanolin (Lanolin Oint 7 Gm) 1 applic TOPICAL PRN PRN PRN Reason: DRYNESS Last Admin: 03/05/23 22:12 Dose: 1 applic Levothyroxine Sodium (Levothyroxine 50 Mcg Tablet) 50 mcg PO DAILY [facility] Last Admin: 03/08/23 08:41 Dose: 50 mcg Lorazepam (Lorazepam 1 Mg Tablet) 1 mg PO BID PRN PRN Reason: anxiety Magnesium Hydroxide (Magnesium Hydroxide 30 Ml Udc) 30 ml PO DAILY PRN; Protocol PRN Reason: Constipation (see protocol) Metoprolol Tartrate (Metoprolol Tartrate 50 Mg Tablet) 100 mg PO BID [facility] Last Admin: 03/08/23 08:41 Dose: 100 mg Naloxone HCl (Naloxone 0.4 Mg/Ml Sdv) 0.1 mg IVP Q2M PRN PRN Reason: RESPIRATORY RATE < 8/MIN Nitroglycerin (Nitroglycerin 0.4 Mg Sublingual Tablet) 0.4 mg SUBLINGUAL Q5M PRN PRN Reason: CHEST PAIN Ondansetron HCl (Ondansetron 2 Mg/Ml Sdv 2 Ml) 4 mg IVP Q8H PRN PRN Reason: vomiting, or N/V if npo Pantoprazole Sodium (Pantoprazole 40 Mg Sdv) 40 mg IVP Q24H [facility] Last Admin: 03/07/23 20:40 Dose: 40 mg Pregabalin (Pregabalin 50 Mg Capsule) 50 mg PO BID [facility] Last Admin: 03/08/23 08:41 Dose: 50 mg Vitals/I&O/Wt Last Vital Signs Temp 97.9 F 03/08/23 04:30 Pulse 88 03/08/23 08:00 Resp 16 03/08/23 08:00 BP 147/74 03/08/23 04:30 Pulse Ox 93 03/08/23 08:00 O2 Del Method Nasal Cannula 03/08/23 08:00 O2 Flow Rate 3 03/08/23 08:00 03/07/23 03/08/23 03/08/23 22:59 06:59 14:59 Intake Total 1444.55 / 1444.55 Output Total 600 / 600 Balance 1444.55 / 1444.55 -600 / 844.55 Weight last 48 hrs Weight 281 lb Weight 283 lb Physical Exam Narrative: GENERAL: The patient is alert and oriented times three. Not in any acute distress. HEENT: No significant pallor, icterus or lymphadenopathy.Oral cavity: There are no mucous membrane lesions. NECK: Trachea appears to be central. No masses noted. No JVD or thyromegaly appreciated. RESPIRATORY: Chest is symmetrical. No intercostals muscle retraction or any accessory muscle activation. There is no chest wall tenderness. Breath sounds are heard bilaterally. No rales or rhonchi heard. No evidence of any consolidation. BREASTS: Deferred. HEART: The heart sounds are normal. No S3 or S4. No significant murmurs. No pericardial rub ABDOMEN: No vessel pulsations or distention. No tenderness. No organomegaly appreciated. Bowel sounds are normally heard. : Deferred. RECTAL: Deferred. LYMPHATIC: No lymphadenopathy noted in the neck. EXTREMITIES: The right groin has no hematoma bleeding. MUSCULOSKELETAL: No acute joint deformities or swelling SKIN: There are no significant rashes or ecchymosis NEUROPSYCHIATRIC: The patient is alert and oriented x3. Appears to be in a good mood. No tremors or rigidity noted. Data 03/08/23 03:40 03/08/23 03:40 A&P Assessment and plan (1) Abnormal nuclear cardiac imaging test: Patient is status post cardiac catheterization. Patient underwent PCI for in-stent stenosis in the LAD. Currently seems to be stable. (2) Atherosclerotic heart disease of [place] coronary artery with unstable angina pectoris: For the angiogram report, please refer to the report by Dr. Santillan from 03/07/2023. May continue on the current medications. (3) Atrial fibrillation: Patient is atrial fibrillation with a controlled ventricular response rate. The Eliquis may be restarted tomorrow. (4) CKD (chronic kidney disease): Continue oral hydration. (5) Diabetes mellitus: Close monitoring of the blood sugar would be appropriate. (6) Hyperlipidemia: May continue on the current management. (7) Benign hypertension: The blood pressure seems to be fairly under control. May continue on the current medications. Plan The other problems are Hypokalemia , currently normokalemic Reactive airway disease , clinically stable Obesity If the patient continues remain stable, may be discharged home today from a cardiac standpoint. Please make an appointment to be seen in the office by the nurse practitioner next week. Appointment with me in the office in 1 month. Patient may restart the Eliquis tomorrow. Continue oral hydration. If she has any recurrence of chest pain or any new symptoms, advised to contact our office or come back to the hospital. Attestations Medical Necessity Statement*: Deferred to the primary Coding Level of Care Code 63174 Diagnoses Abnormal nuclear cardiac imaging test R93.1 Atherosclerotic heart disease of [place] coronary artery with unstable angina pectoris I25.110 Atrial fibrillation I48.91 CKD (chronic kidney disease) N18.9 Diabetes mellitus E11.9 Hyperlipidemia E78.5 Benign hypertension I10
[2023-03-08 09:41] VITALS: BP 128/84; PULSE 92; RESP 23; O2SAT 96
[2023-03-08 10:00] VITALS: BMI 42.7
--- NOTE | 2023-03-08 10:32 | PM.DCS ---
Discharge Providers Date of Admission: 03/06/23 14:38 Date of Discharge: March 08, 2023 Attending Provider at Admission: Saleem Sharpe MD Attending Provider at Discharge: Saleem Sharpe MD Consults: Cardiology: Dr. Chapman/ Dr. Santillan Primary Care Provider: Farhat Acosta MD Diagnoses at Discharge Discharge Diagnosis (1) Abnormal nuclear cardiac imaging test: Status: Acute (2) Atherosclerotic heart disease of [place] coronary artery with unstable angina pectoris: Status: Acute (3) Atrial fibrillation: Status: Acute (4) CKD (chronic kidney disease): Status: Acute (5) Diabetes mellitus: Status: Acute (6) Hyperlipidemia: Status: Acute (7) Benign hypertension: Status: Acute Reason for Visit Reason for Visit: back and left arm pain, chest pressure Hospital Course Hospital Course Shauna Sena is a 67 year old female history of atherosclerotic heart disease, multiple PCI's, ?hypertension, type 2 diabetes, dyslipidemia, chronic kidney disease, hypothyroidism is admitted to hospital with complaints of back pain, between the shoulder blades associated with? heaviness in the chest, shortness of breath and some nausea.? She had a Myocardial perfusion imaging today which was found to be abnormal.? Cardiology consult is requested for further cardiac evaluation recommendations. This patient had the initial PCI of the circumflex artery in 2007 at the [facility]..? In? 2008, she had a repeat PCI of the circumflex artery at the [facility].? In 2010, she had a PCI of the proximal LAD in [place].? In 2013, she had 2 stents placed in the LAD in [place] for in-stent stenosis?.? Apparently she has been doing okay since then.? She has a history of atrial fibrillation and amiodarone toxicity. She has been in her baseline state of health up until yesterday when she started having pain between the shoulder blades.? The pain was moderate in? intensity and has been waxing and waning throughout yesterday.? She had associated shortness of breath, chest heaviness/tightness, nausea and some sweating.? The pain occasionally radiates to the left arm.? Because of the persistence of the symptoms, she was brought to the hospital ,last evening. She has no fever, chills or cough.? No abdominal pain or dysuria.? No other specific complaints. Patient was admitted to the hospital for unstable angina. She underwent cardiac Lexiscan stress test which was positive for tatiana-infarct ischemia in left circumflex artery and minimal tatiana-infarct ischemia in the RCA territory. She underwent cardiac angiogram on 03/07 where she was found to have hazy stenosis and prior stent with another serial 70% stenosis post stent. She underwent successful revascularization with EDD x1. RCA and LCx stents were found to be patent. Her hospitalization was otherwise unremarkable and after PCI her symptoms alleviated. She has been discharged imminently stable condition on oral Plavix 75 mg daily along with home dose of Eliquis 75 mg twice daily. She is to recheck her BMP in 1 week with primary care provider. She is to continue taking her Lasix as 120 mg in the morning and 80 mg in the evening. Physical Exam Narrative: EXAM NARRATIVE: General: No acute distress, AO x3, NC oxygen supplementation at 3 L/min HEENT: PERRLA, pupils bilaterally equal and reactive Chest: equal good air entry bilaterally, fine basal crackles CVS: S1-S2 regular, no murmurs, no tachycardia, no gallops, no rubs Abdomen: Soft, nontender, no organomegaly, bowel sounds present, morbidly obese Neuro: No focal deficits, no facial deformity, AO x3, power 5/5 in all limbs Extremities right lower extremity 1+ pitting edema, patient states this is baseline. Discharge Data Studies Completed and Pending Completed Studies During Hospitalization Category Date Time Status Sestamibi Stress Test Request Routine Exams 03/05/23 19:56 Draft XR chest 1V portable [id number] Stat Exams 03/05/23 16:13 Completed NM dakota perf SPECT r/s* [id number] Routine Nuc Med 03/06/23 19:56 Completed CV. echo wo/w contrast [id number] Routine Ultrasound 03/05/23 19:56 Completed Pending at discharge Category Date Time Status ALGOLOGIST request for service Routine Exams 03/07/23 08:57 Taken Radiology Impressions Chest X-Ray 03/05/23 16:13 IMPRESSION: No acute findings. Echocardiogram: CONCLUSIONS ?LV systolic function is mildly reduced with EF of 45-50%. Mild?global hypokinesis ?Diastolic function is indeterminate because of atrial?fibrillation. ?Left atrial dilation ?Mild aortic regurgitation ?Mild tricuspid regurgitation ?Compared to prior echocardiogram from 2019, no significant?changes are seen. ?Seth Santillan MD ?(Electronically Signed) ?Final Date:?2022 Myocardial perfusion scan: PERFUSION FINDINGS ?There is a large in size, partially reversible perfusion defect noted in the?inferolateral and anterolateral [place]. This is consistent with large sized area?of prior infarct with significant tatiana-infarct ischemia in the left circumflex?artery territory. There is a medium sized, mostly fixed perfusion defect noted?in the inferior wall. This is consistent with medium sized area of prior?infarct with minimal tatiana-infarct ischemia in RCA territory. ?FUNCTIONAL RESULTS ? (calculated via Gated SPECT) ? Stress Image LV EF (%):?44 ? Stress EDV (mL):107? TID:? 0.88 ? Stress ESV (mL):60 ?FUNCTIONAL FINDINGS: ?LV systolic function is mildly reduced with EF of 44%. ?IMPRESSIONS ?1. Abnormal myocardial perfusion imaging with large area of prior infarct with?significant tatiana-infarct ischemia seen in the left circumflex artery territory.?2. Medium sized prior infarct with minimal tatiana-infarct ischemia seen in the?RCA territory. ?3. LV systolic function is mildly reduced. ?Seth Santillan MD ?(Electronically Signed) ?Final Date:? ? ? 06 March 2023 Laboratory Results WBC 9.99 10^3/uL (3.29-11.43) 03/08/23 03:40 RBC 4.98 10^6/uL (3.85-5.65) 03/08/23 03:40 Hgb 14.20 g/dL (11.27-16.99) 03/08/23 03:40 Hct 44.7 % (36-47) 03/08/23 03:40 MCV 89.8 fl (85-98) 03/08/23 03:40 MCH 28.5 pg (27-33) 03/08/23 03:40 MCHC 31.8 g/dL (30-55) 03/08/23 03:40 RDW 14.8 % (12.1-15.1) 03/08/23 03:40 Plt Count 282 10^3/cmm (157-399) 03/08/23 03:40 MPV 10.6 fL (7.4-10.4) H 03/08/23 03:40 Neut % (Auto) 88.3 % 03/08/23 03:40 Lymph % (Auto) 9.5 % 03/08/23 03:40 [place] % (Auto) 1.3 % 03/08/23 03:40 Eos % (Auto) 0.0 % 03/08/23 03:40 Baso % (Auto) 0.1 % 03/08/23 03:40 Neut # (Auto) 8.82 10^3/uL (1.8-7.7) H 03/08/23 03:40 Lymph # (Auto) 1.0 10^3/uL (0.8-4.8) 03/08/23 03:40 [place] # (Auto) 0.1 10^3/uL (0.2-0.9) L 03/08/23 03:40 Eos # (Auto) 0.0 10^3/uL (0.0-0.8) 03/08/23 03:40 Baso # (Auto) 0.0 10^3/uL (0.0-0.1) 03/08/23 03:40 Nucleated RBC % (auto) 0 % 03/08/23 03:40 Nucleated RBCs # 0.0 /100WBC 03/08/23 03:40 PT 13.90 SECONDS (12.1-14.9) 03/05/23 16:32 INR 1.04 (0.8-1.2) 03/05/23 16:32 APTT 84.6 SECONDS (23.9-36.7) H 03/07/23 14:50 Sodium 139 mmol/L (136-145) 03/08/23 03:40 Potassium 3.9 mmol/L (3.5-5.1) 03/08/23 03:40 Chloride 98 mmol/L (98-107) 03/08/23 03:40 Carbon Dioxide 29 mmol/L (22-29) 03/08/23 03:40 Anion Gap 15.9 (5-19) 03/08/23 03:40 BUN 24 mg/dL (8-23) H 03/08/23 03:40 Creatinine 1.5 mg/dL (0.5-0.9) H 03/08/23 03:40 GFR Calculation 34.5 mL/min (90-130) L 03/08/23 03:40 Glucose 321 mg/dL (65-115) H 03/08/23 03:40 POC Glucose 327 mg/dL (70-110) H 03/08/23 06:05 Estimat Average Glucose 163 03/06/23 04:56 Hemoglobin A1c 7.3 % (4.0-6.0) H 03/06/23 04:56 Calculated Osmolality 304 mOsm/kg (285-295) H 03/08/23 03:40 Calcium 9.4 mg/dL (8.5-10.5) 03/08/23 03:40 Phosphorus 4.3 mg/dL (2.5-4.5) 03/06/23 04:56 Magnesium 1.9 mg/dL (1.7-2.3) 03/06/23 04:56 Total Bilirubin 0.4 mg/dL (0.15-1.2) 03/08/23 03:40 AST 9 U/L (0-32) 03/08/23 03:40 ALT 12 U/L (0-33) 03/08/23 03:40 Alkaline Phosphatase 92 U/L (35-105) 03/08/23 03:40 Troponin T Baseline 22 ng/L (0-10) H 03/05/23 16:32 Troponin T 120 Minute 19.20 ng/L (0-10) H 03/05/23 19:15 Delta Troponin T -2.80 ABS# (0-10) L 03/05/23 19:15 Troponin T Hi Sens 6Hr 21.85 ng/L (0-10) H 03/05/23 22:34 Troponin T Hi Sens 6Hr Delta -0.15 ng/L (0-12) L 03/05/23 22:34 Total Protein 6.2 g/dL (6.6-8.7) L 03/08/23 03:40 Albumin 3.7 g/dL (3.5-5.2) 03/08/23 03:40 Globulin 2.5 g/dL (1.3-4.6) 03/08/23 03:40 Triglycerides 321 mg/dL (0-150) H 03/06/23 04:56 Cholesterol 172 mg/dL (0-200) 03/06/23 04:56 LDL Cholesterol, Calc 77 mg/dL (50-129) 03/06/23 04:56 HDL Cholesterol 31 mg/dL (60-100) L 03/06/23 04:56 LDL/HDL Ratio 2.48 RATIO (0.00-3.22) 03/06/23 04:56 Cholesterol/HDL Ratio 5.55 mg/dL (0.0-4.40) H 03/06/23 04:56 Lipase 60 U/L (13-60) 03/05/23 16:32 Procalcitonin 0.09 ng/mL (0-0.5) 03/05/23 16:32 TSH 3.34 uIU/mL (0.27-4.20) 03/05/23 22:34 Urine Color Yellow (Yellow) 03/05/23 22:02 Urine Appearance Clear (CLEAR) 03/05/23 22:02 Urine pH 5 (5-7) 03/05/23 22:02 Ur Specific [place] 1.020 (1.005-1.030) 03/05/23 22:02 Urine Protein 3+ (Negative) H 03/05/23 22:02 Urine Glucose (UA) Trace (Normal) H 03/05/23 22:02 Urine Ketones Negative (Negative) 03/05/23 22:02 Urine Blood Neg (Negative) 03/05/23 22:02 Urine Nitrate Negative (Negative) 03/05/23 22:02 Urine Bilirubin Neg (Negative) 03/05/23 22:02 Urine Urobilinogen Norm mg/dL (Negative) 03/05/23 22:02 Ur Leukocyte Esterase Negative (Negative) 03/05/23 22:02 Urine RBC 0-4 /hpf (0-2) H 03/05/23 22:02 Urine WBC 5-10 /hpf (0-5) H 03/05/23 22:02 Ur Squamous Epith Cells 0-4 /hpf (0-5) H 03/05/23 22:02 Amorphous Sediment Not Reportable 03/05/23 22:02 Urine Bacteria Trace /hpf (NONE) 03/05/23 22:02 Hyaline Casts 5-10 /lpf H 03/05/23 22:02 Urine Mucus Trace /hpf 03/05/23 22:02 Vitals Last Vital Signs Temp 97.9 F 03/08/23 04:30 Pulse 92 03/08/23 09:41 Resp 23 H 09/21/23 09:41 BP 128/84 03/08/23 09:41 Pulse Ox 96 03/08/23 09:41 O2 Del Method Nasal Cannula 03/08/23 08:00 O2 Flow Rate 3 03/08/23 08:00 Discharge Plan Discharge Patient Disposition: Home Condition: Stable Prescriptions: New clopidogrel 75 mg Tablet 75 mg PO DAILY Qty: 30 0RF Continued albuterol sulfate [ProAir HFA] 90 mcg/actuation HFA aerosol inhaler 2 puff INHALATION Q6H PRN (Reason: Shortness Of Breath) ipratropium-albuterol 0.5 mg-3 mg(2.5 mg base)/3 mL solution for nebulization 3 ml inhalation Q6H PRN (Reason: shortness of breath or wheezing) Qty: 180 3RF (DME) FreeStyle Lou 14 Day Sensor Kit See Rx Instructions .Route Qty: 1 12RF Rx Instructions: As directed (DME) FreeStyle Lou 14 Day [place] Misc See Rx Instructions .Route Qty: 1 0RF Rx Instructions: As directed ketoconazole 2 % cream 1 applic topical BID Qty: 30 3RF Rx Instructions: Apply to affected areas in skin folds X3 weeks then PRN for flares. miconazole nitrate [Antifungal (miconazole)] 2 % powder 1 applic topical DAILY Qty: 85 3RF Rx Instructions: Apply daily to affected areas and pillow-case. triamcinolone acetonide 0.1 % ointment 1 applic topical BID Qty: 454 2RF Rx Instructions: apply to affected area no more than 2 weeks per month. not for face clobetasol 0.05 % solution 1 applic topical BID 14 Days Qty: 50 3RF Rx Instructions: Apply a few drops to itchy areas on scalp as needed. ketoconazole 2 % shampoo 1 applic topical ONCE Qty: 120 6RF Rx Instructions: Lather into scalp 2-3 times weekly. Allow to sit on scalp 5 minutes before rinsing. ammonium lactate 12 % lotion 1 applic topical BID PRN (Reason: stucco keratosis) Qty: 225 2RF Rx Instructions: Apply to dry areas of skin 1-2 times a day. hydrocodone-acetaminophen 5-325 mg tablet 1 tab PO BID PRN (Reason: Pain) 5 Days Qty: 10 0RF baclofen 5 mg tablet 5 mg PO Q8H 14 Days Qty: 42 0RF duloxetine 60 mg capsule,delayed release(DR/EC) 60 mg PO BID Qty: 60 1RF Rx Instructions: Take one capsule by mouth every morning and early afternoon; stop other doses (DME) FreeStyle Lou 14 Day Sensor Kit See Rx Instructions .Route Qty: 1 0RF Rx Instructions: As directed (DME) FreeStyle Lou 14 Day Sensor Kit See Rx Instructions .Route Qty: 1 0RF Rx Instructions: As directed furosemide 40 mg tablet 120 mg PO BID Qty: 180 6RF cyanocobalamin (vitamin B-12) [Vitamin B-12] 1,000 mcg tablet 1,000 mcg PO DAILY Qty: 30 6RF ondansetron HCl 4 mg tablet 4 mg PO Q8H PRN (Reason: nausea and vomiting) Qty: 30 3RF pregabalin 50 mg capsule 50 mg PO BID Qty: 60 5RF allopurinol 300 mg tablet 300 mg PO DAILY Qty: 90 3RF apixaban 5 mg tablet 5 mg PO BID Qty: 180 3RF buspirone 10 mg tablet 10 mg PO TID Qty: 90 6RF Rx Instructions: Take one tablet morning, afternoon, and evening diltiazem HCl 120 mg capsule,extended release 24hr 120 mg PO DAILY Qty: 90 3RF levothyroxine 50 mcg tablet 50 mcg PO DAILY Qty: 90 3RF metoprolol tartrate 100 mg tablet 100 mg PO BID Qty: 60 6RF potassium chloride 20 mEq tablet,ER particles/crystals 20 meq PO BID Qty: 180 3RF simvastatin 40 mg tablet 40 mg PO QPM Qty: 90 3RF Trulicity 0.75 mg/0.5 mL pen injector 0.75 mg SUBCUT Q7D Qty: 2 6RF Rx Instructions: on sunday Lantus U-100 Insulin 100 unit/mL solution 90 unit SUBCUT BID Qty: 80 6RF lorazepam 1 mg tablet 1 mg PO BID PRN (Reason: anxiety) Qty: 60 1RF acetaminophen 500 mg Tablet 1,000 mg PO Q6H PRN (Reason: Pain) nitroglycerin [Nitrostat] 0.4 mg Tablet, Sublingual 0.4 mg SUBLINGUAL Q5M PRN (Reason: Chest Pain) Rx Instructions: do not exceed 3 doses per episode Discharge Orders: Discharge Order (Routine); Ordered 03/08/23 Ordered By: Saleem Sharpe Referrals: Betty Ayala FNP [Nurse Practitioner] - 03/20/23 10:00 am Farhat Acosta MD [Primary Care Provider] - 7-10 days Discharge Diet: Cardiac and Diabetic Discharge Activity: Resume usual activity and Increase activity as tolerated Patient Instructions: Clopidogrel (By mouth) (Plavix), Coronary Angioplasty (DC), Opioid Safety, Post Angiogram Home Care Instructions Activity Restrictions/Additional Instructions: Continue taking your Eliquis as before. Along with that Plavix 75 mg daily has been added. For next 1 week take 3 tablets of 40 mg Lasix in the morning and 2 tablets of 40 mg Lasix in the evening. Please check your blood pressure daily at home maintain a blood pressure diary please recheck BMP with your primary care provider in 1 week on your next appointment. And follow-up with a primary care provider for further adjustment of antihypertensives. Please follow-up with Betty Ayala/nurse practitioner from cardiology office within next 1 week on set appointment. Discharge Attestations Time Spent in Discharge Care*: greater than 30 min Specific Discharge Activities: educating patient, discussing with pcp/other providers, discussing with hospice case manager/social workers/dc planners, documenting/other paperwork and evaluating patient/reviewing data Status at Discharge: Cognitive status at discharge: cognitively intact, Behavioral status at discharge: cooperative, Functional status at discharge: uses cane/walker, Overall status at discharge: patient is back to baseline Quality Metrics Clinical Quality Measures [ No reported AMI, CVA or VTE this stay] Coding Level of Care Code 60370 Total time (in minutes) for Discharge: 50 Diagnoses Abnormal nuclear cardiac imaging test R93.1 Atherosclerotic heart disease of [place] coronary artery with unstable angina pectoris I25.110 Atrial fibrillation I48.91 CKD (chronic kidney disease) N18.9 Diabetes mellitus E11.9 Hyperlipidemia E78.5 Benign hypertension I10
[2023-03-08 15:04] VITALS: BP 128/84
[2023-03-08 15:11] VITALS: BP 128/84
--- NOTE | 2023-03-08 15:14 | PC.NURSE ---
Discharge Note Patient discharged to home via POV accompanied by friend. Discharge instructions reviewed with patient and/or patient care representative. Mobile pharmacy medications and/or prescriptions provided. Belongings/home medications returned.
[2023-03-09 06:20] LABS: Glucose Point of Care 367 mg/dL (70-110)
== END 2023-03-08 15:15 | disposition home or self-care (01) | DRG 246 ==
LOC: ER 19:18 → ICU 20:25 → CSU 03-06 15:16
PROVIDERS: Emergency Medicine; Internal Medicine; Admitting Provider Student in an Organized Health Care Education/Training Program; Emergency Provider Family Medicine; PCP Family Medicine; Visit Provider Student in an Organized Health Care Education/Training Program
PROC: 027034Z Dilation of Coronary Artery, One Artery with Drug-eluting Intraluminal Device, Percutaneous Approach (ICD-10-PCS; principal; 2023-03-07 09:20)
PROC: 027034Z Dilation of Coronary Artery, One Artery with Drug-eluting Intraluminal Device, Percutaneous Approach (ICD-10-PCS; 2023-03-07 09:20)
DX: T82.855A Stenosis of coronary artery stent, initial encounter (principal); I21.4 Non-ST elevation (NSTEMI) myocardial infarction; I25.110 Atherosclerotic heart disease of native coronary artery with unstable angina pectoris; I13.0 Hypertensive heart and chronic kidney disease with heart failure and stage 1 through stage 4 chronic kidney disease, or unspecified chronic kidney disease; I50.22 Chronic systolic (congestive) heart failure; Z68.41 Body mass index [BMI] 40.0-44.9, adult; F33.9 Major depressive disorder, recurrent, unspecified; Y71.8 Miscellaneous cardiovascular devices associated with adverse incidents, not elsewhere classified; I48.91 Unspecified atrial fibrillation; E11.22 Type 2 diabetes mellitus with diabetic chronic kidney disease; N18.9 Chronic kidney disease, unspecified; E78.5 Hyperlipidemia, unspecified; E03.9 Hypothyroidism, unspecified; Z95.5 Presence of coronary angioplasty implant and graft; I25.2 Old myocardial infarction; Z79.891 Long term (current) use of opiate analgesic; Z79.85 Long-term (current) use of injectable non-insulin antidiabetic drugs; Z79.4 Long term (current) use of insulin; G89.29 Other chronic pain; E66.9 Obesity, unspecified; E87.6 Hypokalemia; Z86.14 Personal history of Methicillin resistant Staphylococcus aureus infection; E78.00 Pure hypercholesterolemia, unspecified; M10.9 Gout, unspecified; M79.7 Fibromyalgia; Z87.01 Personal history of pneumonia (recurrent)
CPT/HCPCS: 36415; 36416; 71045; 78452; 80053; 80061; 81001; 82962; 83036; 83690; 83735; 84100; 84145; 84443; 84484; 85025; 85347; 85610; 85730; 93005; 93458; 94664; 96372; 96374; 96375; 96376; 99152; 99153; 99285; A9500; C1725; C1760; C1769; C1874; C1887; C1894; C8929; C9113; C9600; G0378; J1170; J1644; J1650; J1720; J1815; J1940; J2250; J2785; J2930; J3010; J3490; J7030; Q0163; Q9956; Q9967

== ENCOUNTER 2023-03-18 16:40 | Emergency (ER) | payer MEDICARE, MEDICAID, SELFPAY ==
[2023-03-18 16:57] VITALS: BP 134/92; PULSE 89; RESP 17; TEMP 36.4; O2SAT 99; BMI 42.5
--- NOTE | 2023-03-18 17:03 | ED_ITS ---
HPI - Skin/Abscess/Foreign Bdy General: Chief complaint: Skin/Abscess/Foreign Body Stated complaint: boil on head Time Seen by Provider: 03/18/23 16:54 History of Present Illness: 67-year-old female comes in today with a sore to the left parietal scalp. Patient has been on Keflex for 1 week with minimal relief. Patient appears nontoxic. Patient appears no acute distress. Patient does have a history of diabetes mellitus type 2, coronary artery disease, chronic lung disease, and anticoagulation. Review of Systems General: Reports: 10 or more systems reviewed and unremarkable except in HPI and below Skin/Breast: Reports: non-healing lesions [facility] ED PFSH: Medical History (Updated 03/18/23 @ 17:38 by MARCIA Croft) Amiodarone pulmonary toxicity Atrial fibrillation CAD (coronary artery disease) Last echocardiogram 08/06 with EF of 50% Stents x 3 - last in 02/2023 Chronic pain She reports taking pain medicines and muscle relaxers for a recent back injury; she has chronic left leg pain. Chronic respiratory failure CKD (chronic kidney disease) Community acquired pneumonia Depression Diabetes type 2, uncontrolled Fibromyalgia Gout HTN (hypertension) Hypercholesteremia Hyperlipidemia Hypothyroidism Influenza A Major depressive disorder, recurrent severe without psychotic features MRSA (methicillin resistant staph aureus) culture positive Polypharmacy Psychiatric care Type 2 diabetes mellitus Vitamin B12 deficiency Surgical History H/O cardiac radiofrequency ablation H/O section H/O eye surgery H/O left knee surgery History of back surgery History of carpal tunnel release History of coronary artery stent placement History of hysterectomy partial History of incision and drainage Right breast abscess Hx of cholecystectomy Family History Mother Cancer breast Stroke Brother Heart disease Asthma Cancer prostate Sister Heart disease Social History Smoking and tobacco status: never smoked Alcohol intake: never Substance/Drug Use: never Housing: Other Details: Currently with her family Physical Exam Const: COMMON NORMALS: alert HENMT: HEAD & SCALP: scalp tenderness (Lesion noted to the left parietal scalp) THROAT: posterior oropharynx normal Neck/C-Spine: COMMON NORMALS: full ROM Resp: COMMON NORMALS: normal respiratory effort Cardio: COMMON NORMALS: regular rate RATE: regular rate GI: COMMON NORMALS: non-tender Extremity: COMMON NORMALS: normal to inspection Neuro: SENSORIUM/ORIENTATION: Yes alert Skin: LESIONS: lesion noted (Left lateral scalp induration, fluctuance, ) Procedures Abscess I/D Site: scalp Side (if applicable): left Local Anesthetic: lidocaine 2% and with epi Amount of anesthesia used (mL): 6 Technique: incised with #11 blade Amount of fluid expressed (mL): 3 Irrigation: Yes Packing used?: plain Course Vital Signs: Vital signs: Vital Signs Temperature 97.6 F 03/18/23 16:57 Pulse Rate 89 03/18/23 16:57 Respiratory Rate 17 03/18/23 16:57 Blood Pressure 134/92 03/18/23 16:57 Pulse Oximetry 99 03/18/23 16:57 MDM - Skin/Abscess/Foreign Bdy Medicial Decision Making Patient comes in for a lesion to her left scalp. On exam we note a crusted lesion with elevation and fluctuance centralized to it. There is some mild redness and induration to the lesion. Differential diagnosis includes but not limited to basal cell carcinoma, inclusion of cyst, abscess, carbuncle/furuncle. Wound was cleaned with peroxide to remove the scaliness noted white eschar underneath the scab. Under a local anesthetic an incision was made into the white eschar to remove and purulent drainage approximately 3 mL was released. Area was then deloculated and irrigated then packed with approximately 6 cm of half-inch gauze. Recommended patient follow-up with primary care in 2 to 3 days for recheck of wound. Gauze should be removed at that time and wound reassessed for consideration of further debridement or referral to wound care specialty. Patient's Keflex was switched to doxycycline. Patient reported understanding of care plan wound culture was sent to lab. No radiology studies performed this visit Discharge Plan Discharge Patient Disposition: Home Clinical Impression: Infected epithelial inclusion cyst Condition: Stable Prescriptions: New doxycycline hyclate 100 mg tablet 100 mg PO BID 7 Days Qty: 14 0RF hydrocodone-acetaminophen 5-325 mg tablet 1 tab PO Q6H PRN (Reason: pain (scale score 7-10)) Qty: 10 0RF No Action albuterol sulfate [ProAir HFA] 90 mcg/actuation HFA aerosol inhaler 2 puff INHALATION Q6H PRN (Reason: Shortness Of Breath) ipratropium-albuterol 0.5 mg-3 mg(2.5 mg base)/3 mL solution for nebulization 3 ml inhalation Q6H PRN (Reason: shortness of breath or wheezing) Qty: 180 3RF (DME) FreeStyle Lou 14 Day Sensor Kit See Rx Instructions .Route Qty: 1 12RF Rx Instructions: As directed (DME) FreeStyle Lou 14 Day [place] Misc See Rx Instructions .Route Qty: 1 0RF Rx Instructions: As directed ketoconazole 2 % cream 1 applic topical BID Qty: 30 3RF Rx Instructions: Apply to affected areas in skin folds X3 weeks then PRN for flares. miconazole nitrate [Antifungal (miconazole)] 2 % powder 1 applic topical DAILY Qty: 85 3RF Rx Instructions: Apply daily to affected areas and pillow-case. triamcinolone acetonide 0.1 % ointment 1 applic topical BID Qty: 454 2RF Rx Instructions: apply to affected area no more than 2 weeks per month. not for face clobetasol 0.05 % solution 1 applic topical BID 14 Days Qty: 50 3RF Rx Instructions: Apply a few drops to itchy areas on scalp as needed. ketoconazole 2 % shampoo 1 applic topical ONCE Qty: 120 6RF Rx Instructions: Lather into scalp 2-3 times weekly. Allow to sit on scalp 5 minutes before rinsing. ammonium lactate 12 % lotion 1 applic topical BID PRN (Reason: stucco keratosis) Qty: 225 2RF Rx Instructions: Apply to dry areas of skin 1-2 times a day. hydrocodone-acetaminophen 5-325 mg tablet 1 tab PO BID PRN (Reason: Pain) 5 Days Qty: 10 0RF baclofen 5 mg tablet 5 mg PO Q8H 14 Days Qty: 42 0RF duloxetine 60 mg capsule,delayed release(DR/EC) 60 mg PO BID Qty: 60 1RF Rx Instructions: Take one capsule by mouth every morning and early afternoon; stop other doses (DME) FreeStyle Lou 14 Day Sensor Kit See Rx Instructions .Route Qty: 1 0RF Rx Instructions: As directed (DME) FreeStyle Lou 14 Day Sensor Kit See Rx Instructions .Route Qty: 1 0RF Rx Instructions: As directed furosemide 40 mg tablet 120 mg PO BID Qty: 180 6RF cyanocobalamin (vitamin B-12) [Vitamin B-12] 1,000 mcg tablet 1,000 mcg PO DAILY Qty: 30 6RF ondansetron HCl 4 mg tablet 4 mg PO Q8H PRN (Reason: nausea and vomiting) Qty: 30 3RF pregabalin 50 mg capsule 50 mg PO BID Qty: 60 5RF allopurinol 300 mg tablet 300 mg PO DAILY Qty: 90 3RF apixaban 5 mg tablet 5 mg PO BID Qty: 180 3RF buspirone 10 mg tablet 10 mg PO TID Qty: 90 6RF Rx Instructions: Take one tablet morning, afternoon, and evening diltiazem HCl 120 mg capsule,extended release 24hr 120 mg PO DAILY Qty: 90 3RF levothyroxine 50 mcg tablet 50 mcg PO DAILY Qty: 90 3RF metoprolol tartrate 100 mg tablet 100 mg PO BID Qty: 60 6RF potassium chloride 20 mEq tablet,ER particles/crystals 20 meq PO BID Qty: 180 3RF simvastatin 40 mg tablet 40 mg PO QPM Qty: 90 3RF Trulicity 0.75 mg/0.5 mL pen injector 0.75 mg SUBCUT Q7D Qty: 2 6RF Rx Instructions: on sunday Lantus U-100 Insulin 100 unit/mL solution 90 unit SUBCUT BID Qty: 80 6RF lorazepam 1 mg tablet 1 mg PO BID PRN (Reason: anxiety) Qty: 60 1RF acetaminophen 500 mg Tablet 1,000 mg PO Q6H PRN (Reason: Pain) nitroglycerin [Nitrostat] 0.4 mg Tablet, Sublingual 0.4 mg SUBLINGUAL Q5M PRN (Reason: Chest Pain) Rx Instructions: do not exceed 3 doses per episode clopidogrel 75 mg Tablet 75 mg PO DAILY Qty: 30 0RF Discharge Orders: Discharge ED (Routine); Ordered 03/18/23 Ordered By: Dom Self Referrals: Farhat Acosta MD [Primary Care Provider] - Discharge Diet: Usual diet Discharge Activity: Increase activity as tolerated Patient Instructions: Abscess Incision and Drainage (DC) Activity Restrictions/Additional Instructions: Keep wound covered as needed for drainage. Use oral antibiotic doxycycline 1 capsule 2 times a day for 10 days. Drink plenty of water and fluids. Follow-up with primary care in 2 to 3 days for recheck. You may need to have further debridement or wound care. Return to ED for new concerns or worsening symptoms such as high fever or increasing redness and swelling. Coding Level of Care Code ED Long Term Care Social Worker for Gerson Morgan
[2023-03-18] MEDS: lidocaine-epi 2% 20 mL INJ INJECTION (17:43)
[2023-03-18] MEDS: HYDROcodone-acetaminophen 5-325 mg Tablet 1 TAB PO (17:43)
[2023-03-18] MEDS: doxycycline 100 mg Tablet PO (17:43)
== END 2023-03-18 17:51 | disposition home or self-care (01) ==
PROVIDERS: Emergency Provider Nurse Practitioner Family; PCP Family Medicine
DX: L72.0 Epidermal cyst (principal); Z79.85 Long-term (current) use of injectable non-insulin antidiabetic drugs; Z79.4 Long term (current) use of insulin; I25.10 Atherosclerotic heart disease of native coronary artery without angina pectoris; E11.22 Type 2 diabetes mellitus with diabetic chronic kidney disease; I12.9 Hypertensive chronic kidney disease with stage 1 through stage 4 chronic kidney disease, or unspecified chronic kidney disease; N18.9 Chronic kidney disease, unspecified; E78.5 Hyperlipidemia, unspecified; Z79.02 Long term (current) use of antithrombotics/antiplatelets
CPT/HCPCS: 10060; 87070; 87075; 87077; 87186; 87205; 99283

== ENCOUNTER → 2023-03-26 14:31 | Outpatient (BNVA) | payer MEDICARE, MEDICAID, SELFPAY | PROVIDERS: PCP Family Medicine; Visit Provider Nurse Practitioner Family | DX: I25.10 Atherosclerotic heart disease of native coronary artery without angina pectoris (principal); I12.9 Hypertensive chronic kidney disease with stage 1 through stage 4 chronic kidney disease, or unspecified chronic kidney disease; E11.22 Type 2 diabetes mellitus with diabetic chronic kidney disease; N18.9 Chronic kidney disease, unspecified; Z79.4 Long term (current) use of insulin | CPT/HCPCS: 99213 ==

== ENCOUNTER 2023-04-04 13:09 | Emergency (ER) | payer MEDICARE, MEDICAID, SELFPAY ==
[2023-04-04] VITALS (7 sets, daily range): BP systolic 132–161; BP diastolic 60–76; PULSE 66–78; RESP 11–18; TEMP 36.6; O2SAT 97–98; BMI 42.5
--- NOTE | 2023-04-04 13:12 | ECG_ITS ---
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 Measurements Intervals [place] Rate: 76 P: 0 [place]: 0 QRS: 24 QRSD: 106 T: 73 QT: 386 QTc: 436 Interpretive Statements ATRIAL FLUTTER/TACHYCARDIA INCOMPLETE RIGHT BUNDLE BRANCH BLOCK [90+ ms QRS DURATION, TERMINAL R IN V1/V2, 40+ ms S IN I/aVL/V4/V5/V6] NONSPECIFIC ST & T-WAVE ABNORMALITY ABNORMAL RHYTHM ECG INTERPRETATION BASED ON A DEFAULT AGE OF 40 YEARS Compared to ECG 03/05/2023 22:49:20 Incomplete right bundle-branch block now present T-wave abnormality now present Indeterminate axis no longer present ST (T wave) deviation no longer present Electronically Signed On 04-04-2023 19:36:42 CDT by Sherman Chapman M.D. [id number]
--- NOTE | 2023-04-04 13:12 | XR_ITS ---
WS: [id number] Portable AP upright chest, 04/04/2023 Clinical Data: CXP Comparison: Portable chest, 03/05/2023 Findings: No nodules, masses or effusions are seen. The heart is slightly enlarged. The pulmonary vas cularity is not increased. No pneumonia or pneumothorax is seen. The aortic arch and descending thora cic aorta show minimal calcification and tortuosity. There are monitor leads on the chest wall. Impression: Atherosclerosis and cardiomegaly.
--- NOTE | 2023-04-04 13:13 | ED_ITS ---
HPI - Chest Pain General: Chief Complaint: Chest Pain Stated Complaint: Chest pain Time Seen by Provider: 04/04/23 13:12 History of Present Illness: 67-year-old female presents emergency department with complaints of chest pain that started last night. She states she has had previous cardiac events and states that this feels very similar to her previous. She was recently seen and received cardiac stents and has a history of atrial fibrillation. She states that her current chest pain is a 9 out of 10 initially which prompted EMS response. She states that she did receive aspirin, pain medication and nitroglycerin from the paramedics. She states she is chronically on supple mental oxygen at 3 L nasal cannula due to her COPD. She has had a previous history of amiodarone pulmonary toxicity. She does state that her chest pain radiates to her back right between her shoulder blades and is currently a 6 out of 10. Associated symptoms: Reports dyspnea and palpitations Review of Systems General: Reports: 10 or more systems reviewed and unremarkable except in HPI and below Card: Reports: chest pain, palpitations and irregular heart rhythm Resp: Reports: dyspnea Psych: Reports: anxiety PFSH ED PFSH: Medical History Amiodarone pulmonary toxicity Atrial fibrillation CAD (coronary artery disease) Last echocardiogram 08/06 with EF of 50% Stents x 3 - last in 02/2023 Chronic pain She reports taking pain medicines and muscle relaxers for a recent back injury; she has chronic left leg pain. Chronic respiratory failure CKD (chronic kidney disease) Community acquired pneumonia Depression Diabetes type 2, uncontrolled Fibromyalgia Gout HTN (hypertension) Hypercholesteremia Hyperlipidemia Hypothyroidism Influenza A Major depressive disorder, recurrent severe without psychotic features MRSA (methicillin resistant staph aureus) culture positive Polypharmacy Psychiatric care Type 2 diabetes mellitus Vitamin B12 deficiency Surgical History H/O cardiac radiofrequency ablation H/O section H/O eye surgery H/O left knee surgery History of back surgery History of carpal tunnel release History of coronary artery stent placement History of hysterectomy partial History of incision and drainage Right breast abscess Hx of cholecystectomy Family History Mother Cancer breast Stroke Brother Heart disease Asthma Cancer prostate Sister Heart disease Social History Smoking and tobacco/nicotine status: never used tobacco/nicotine Alcohol intake: never Substance/Drug Use: never Housing: Other Details: Currently with her family Physical Exam Narrative: EXAM NARRATIVE: Constitutional: the patient appears Morbidly obese,. Vital signs reviewed as documented. HENMT: Normocephalic, atraumatic. Extermal ears with normal appearance without drainage. Nose without drainage, normal appearance. Mucus membranes moist. Neck is supple, No jugular venous distension, trachea is midline, no appreciable carotid bruits. No lymphadenopathy. No meningeal signs. Flexion, extension and lateral rotation is without pain. Eyes: Pupils are equal, round, reactive to light and accomidation. No scleral icterus. Extra-ocular movement are intact. Thorax is symmetrical and with equal rise and fall with respirations. Resp: Lungs are clear to auscultation. No wheezes, rales, crackles or ronchi at pesent. Cardio: Irregularly irregular but rate controlled. Positive S1, S2. No appreciable murmurs, rubs or gallops. GI: Abdominal exam reveals normal bowel sounds to all quadrants. No organo megaly. No obvious palpable masses noted. No hepatomegaly appreciated. Soft, nontender to palpation. Extremity: Extremities are non-edematous and both femoral and pedal pulses are 2+ and equal bilaterally. Moves all extremities well, sensation in all extremities. Neuro: Alert and oriented x4, person, place, time and situation. Cranial nerves II through XII are grossly intact, there is no focal neurological deficits that I can appreciate at present. Motor strength in the upper and lower extremities are equal and bilateral 5/5. Psych: Cooperative, Anxious, normal thought process, appropriate judgment. Skin: No lesions, rashes. No gross abnormalities noted. Back: Symmetrical, no obvious deformity, No CVA tenderness Course Vital Signs: Vital signs: Vital Signs Temperature 97.9 F 04/04/23 13:11 Pulse Rate 75 04/04/23 16:54 Respiratory Rate 13 04/04/23 16:54 Blood Pressure 132/73 04/04/23 16:54 Pulse Oximetry 98 04/04/23 16:54 Oxygen Delivery Me thod Room Air 04/04/23 15:22 Oxygen Flow Rate 3 04/04/23 14:29 MDM - Chest Pain Medical Decision Making Physical exam completed and documented, CBC obtained cardiac enzymes obtained anticoagulation studies obtained. I reviewed the patient's previous medical records and it does appear that she is on anticoagulation. She does appear to be very preoccupied about her previous cardiac history and appears to be very fearful at present. Medical Records I reviewed the patient's medical records. Lab Data I reviewed the patient's lab results. 04/04/23 13:21 04/04/23 13:21 Laboratory Results WBC 9.97 10^3/uL (3.29-11.43) 04/04/23 13:21 RBC 4.94 10^6/uL (3.85-5.65) 04/04/23 13:21 Hgb 14.20 g/dL (11.27-16.99) 04/04/23 13:21 Hct 44.3 % (36-47) 04/04/23 13:21 MCV 89.7 fl (85-98) 04/04/23 13:21 MCH 28.7 pg (27-33) 04/04/23 13:21 MCHC 32.1 g/dL (30-55) 04/04/23 13:21 RDW 15.3 % (12.1-15.1) H 04/04/23 13:21 Plt Count 331 10^3/cmm (157-399) 04/04/23 13:21 MPV 10.3 fL (7.4-10.4) 04/04/23 13:21 Neut % (Auto) 65.1 % 04/04/23 13:21 Lymph % (Auto) 22.3 % 04/04/23 13:21 [place] % (Auto) 7.3 % 04/04/23 13:21 Eos % (Auto) 3.6 % 04/04/23 13:21 Baso % (Auto) 0.9 % 04/04/23 13:21 Neut # (Auto) 6.49 10^3/uL (1.8-7.7) 04/04/23 13:21 Lymph # (Auto) 2.2 10^3/uL (0.8-4.8) 04/04/23 13:21 [place] # (Auto) 0.7 10^3/uL (0.2-0.9) 04/04/23 13:21 Eos # (Auto) 0.4 10^3/uL (0.0-0.8) 04/04/23 13:21 Baso # (Auto) 0.1 10^3/uL (0.0-0.1) 04/04/23 13:21 Nucleated RBC % (auto) 0 % 04/04/23 13:21 Nucleated RBCs # 0.0 /100WBC 04/04/23 13:21 PT 13.10 SECONDS (12.1-14.9) 04/04/23 13:21 INR 0.97 (0.8-1.2) 04/04/23 13:21 APTT 30.2 SECONDS (23.9-36.7) 04/04/23 13:21 Sodium 136 mmol/L (136-145) 04/04/23 13:21 Potassium 4.1 mmol/L (3.5-5.1) 04/04/23 13:21 Chloride 95 mmol/L (98-107) L 04/04/23 13:21 Carbon Dioxide 31 mmol/L (22-29) H 04/04/23 13:21 Anion Gap 14.1 (5-19) 04/04/23 13:21 BUN 27 mg/dL (8-23) H 04/04/23 13:21 Creatinine 1.4 mg/dL (0.5-0.9) H 04/04/23 13:21 GFR Calculation 37.4 mL/min (90-130) L 04/04/23 13:21 Glucose 390 mg/dL (65-115) H 04/04/23 13:21 Calculated Osmolality 303 mOsm/kg (285-295) H 04/04/23 13:21 Calcium 9.6 mg/dL (8.5-10.5) 04/04/23 13:21 Total Bilirubin 0.2 mg/dL (0.15-1.2) 04/04/23 13:21 AST 13 U/L (0-32) 04/04/23 13:21 ALT 18 U/L (0-33) 04/04/23 13:21 Alkaline Phosphatase 107 U/L (35-105) H 04/04/23 13:21 Troponin T Baseline 23 ng/L (0-10) H 04/04/23 13:21 Troponin T 120 Minute 21.70 ng/L (0-10) H 04/04/23 15:14 Delta Troponin T -1.30 ABS# (0-10) L 04/04/23 15:14 NT-Pro-B Natriuret Pep 790 pg/mL (0-125) H 04/04/23 13:21 Total Protein 5.9 g/dL (6.6-8.7) L 04/04/23 13:21 Albumin 3.9 g/dL (3.5-5.2) 04/04/23 13:21 Globulin 2.0 g/dL (1.3-4.6) 04/04/23 13:21 Urine Color Yellow (Yellow) 04/04/23 14:42 Urine Appearance Clear (CLEAR) 04/04/23 14:42 Urine pH 6 (5-7) 04/04/23 14:42 Ur Specific [place] 1.010 (1.005-1.030) 04/04/23 14:42 Urine Protein 1+ (Negative) H 04/04/23 14:42 Urine Glucose (UA) 4+ (Normal) H 04/04/23 14:42 Urine Ketones Negative (Negative) 04/04/23 14:42 Urine Blood Trace (Negative) H 04/04/23 14:42 Urine Nitrate Negative (Negative) 04/04/23 14:42 Urine Bilirubin Neg (Negative) 04/04/23 14:42 Urine Urobilinogen Norm mg/dL (Negative) 04/04/23 14:42 Ur Leukocyte Esterase Negative (Negative) 04/04/23 14:42 Urine RBC 0-4 /hpf (0-2) H 04/04/23 14:42 Urine WBC 0-4 /hpf (0-5) H 04/04/23 14:42 Ur Squamous Epith Cells 0-4 /hpf (0-5) H 04/04/23 14:42 Amorphous Sediment Not Reportable 04/04/23 14:42 Urine Bacteria Trace /hpf (NONE) 04/04/23 14:42 Hyaline Casts Rare /lpf 04/04/23 14:42 Urine Mucus None /hpf 04/04/23 14:42 All radiology interpretation(s) finalized by discharge Discharge Plan Discharge Patient Disposition: Home Clinical Impression: Chest pain, non-cardiac, Atrial fibrillation with controlled ventricular rate Condition: Stable Prescriptions: No Action albuterol sulfate [ProAir HFA] 90 mcg/actuation HFA aerosol inhaler 2 puff INHALATION Q6H PRN (Reason: Shortness Of Breath) ipratropium-albuterol 0.5 mg-3 mg(2.5 mg base)/3 mL solution for nebulization 3 ml inhalation Q6H PRN (Reason: shortness of breath or wheezing) Qty: 180 3RF (DME) FreeStyle Lou 14 Day Sensor Kit See Rx Instructions .Route Qty: 1 12RF Rx Instructions: As directed ketoconazole 2 % cream 1 applic topical BID Qty: 30 3RF Rx Instructions: Apply to affected areas in skin folds X3 weeks then PRN for flares. miconazole nitrate [Antifungal (miconazole)] 2 % powder 1 applic topical DAILY Qty: 85 3RF Rx Instructions: Apply daily to affected areas and pillow-case. triamcinolone acetonide 0.1 % ointment 1 applic topical BID Qty: 454 2RF Rx Instructions: apply to affected area no more than 2 weeks per month. not for face clobetasol 0.05 % solution 1 applic topical BID 14 Days Qty: 50 3RF Rx Instructions: Apply a few drops to itchy areas on scalp as needed. ammonium lactate 12 % lotion 1 applic topical BID PRN (Reason: stucco keratosis) Qty: 225 2RF Rx Instructions: Apply to dry areas of skin 1-2 times a day. (DME) FreeStyle Lou 14 Day Sensor Kit See Rx Instructions .Route Qty: 1 0RF Rx Instructions: As directed furosemide 40 mg tablet 120 mg PO BID Qty: 180 6RF sulfamethoxazole-trimethoprim [Bactrim DS] 800-160 mg tablet 1 tab PO BID Qty: 14 0RF (DME) FreeStyle Lou 14 Day Sensor Kit See Rx Instructions .Route Qty: 2 11RF Rx Instructions: As directed buspirone 10 mg tablet 10 mg PO TID Qty: 90 1RF Rx Instructions: Take one tablet morning, afternoon, and evening Trintellix 10 mg tablet 10 mg PO DAILY Qty: 30 1RF Rx Instructions: Take one tablet daily; stop duloxetine cyanocobalamin (vitamin B-12) [Vitamin B-12] 1,000 mcg tablet 1,000 mcg PO DAILY Qty: 30 6RF ondansetron HCl 4 mg tablet 4 mg PO Q8H PRN (Reason: nausea and vomiting) Qty: 30 3RF allopurinol 300 mg tablet 300 mg PO DAILY Qty: 90 3RF apixaban 5 mg tablet 5 mg PO BID Qty: 180 3RF diltiazem HCl 120 mg capsule,extended release 24hr 120 mg PO DAILY Qty: 90 3RF levothyroxine 50 mcg tablet 50 mcg PO DAILY Qty: 90 3RF metoprolol tartrate 100 mg tablet 100 mg PO BID Qty: 60 6RF potassium chloride 20 mEq tablet,ER particles/crystals 20 meq PO BID Qty: 180 3RF simvastatin 40 mg tablet 40 mg PO QPM Qty: 90 3RF Trulicity 0.75 mg/0.5 mL pen injector 0.75 mg SUBCUT Q7D Qty: 2 6RF Rx Instructions: on Sunday Lantus U-100 Insulin 100 unit/mL solution 90 unit SUBCUT BID Qty: 80 6RF lorazepam 1 mg tablet 1 mg PO BID PRN (Reason: anxiety) Qty: 60 1RF clopidogrel 75 mg tablet 75 mg PO DAILY Qty: 90 3RF pregabalin 50 mg capsule 50 mg PO BID Qty: 60 5RF (DME) FreeStyle Lou 14 Day [place] Misc See Rx Instructions .Route Qty: 1 12RF Rx Instructions: As directed acetaminophen 500 mg Tablet 1,000 mg PO Q6H PRN (Reason: Pain) nitroglycerin [Nitrostat] 0.4 mg Tablet, Sublingual 0.4 mg SUBLINGUAL Q5M PRN (Reason: Chest Pain) Rx Instructions: do not exceed 3 doses per episode hydrocodone-acetaminophen 5-325 mg tablet 1 tab PO Q6H PRN (Reason: pain (scale score 7-10)) Qty: 10 0RF ketoconazole 2 % shampoo 1 applic topical Q3D Rx Instructions: Lather into scalp 2-3 times weekly. Allow to sit on scalp 5 minutes before rinsing. Discharge Orders: Discharge ED (Routine); Ordered 04/04/23 Ordered By: Pato Davis Referrals: Farhat Acosta MD [Primary Care Provider] - Discharge Diet: Advance as tolerated Discharge Activity: Resume usual activity Coding Level of Care Code ED Hedis Review Nurse for Chg Fwradha
[2023-04-04 13:28] LABS: Basophils # 0.1 10^3/uL (0.0-0.1); Basophils % 0.9 %; Eosinophils # 0.4 10^3/uL (0.0-0.8); Eosinophils % 3.6 %; Hematocrit 44.3 % (36-47); Lymphocytes # 2.2 10^3/uL (0.8-4.8); Lymphocytes % 22.3 %; Mean Corpuscular HGB Conc 32.1 g/dL (30-55); Mean Corpuscular Hemoglobin 28.7 pg (27-33); Mean Corpuscular Volume 89.7 fl (85-98); Mean Platelet Volume 10.3 fL (7.4-10.4); Monocytes # 0.7 10^3/uL (0.2-0.9); Monocytes % 7.3 %; Neutrophils # 6.49 10^3/uL (1.8-7.7); Neutrophils % 65.1 %; Nucleated Red Blood Cells % 0 %; Platelet Count 331 10^3/cmm (157-399); Red Blood Count 4.94 10^6/uL (3.85-5.65); Red Cell Distribution Width 15.3 % (12.1-15.1); White Blood Count 9.97 10^3/uL (3.29-11.43)
[2023-04-04] MEDS: nitroglycerin 1 gm/inch oint Pkt 2 INCH TOPICAL (13:29)
[2023-04-04 13:55] LABS: INR 0.97 (0.8-1.2)
[2023-04-04 13:56] LABS: Partial Thromboplastin Time 30.2 SECONDS (23.9-36.7)
[2023-04-04 14:03] LABS: Troponin(5th) Baseline 23 ng/L (0-10)
[2023-04-04 14:11] LABS: Alanine Aminotransferase 18 U/L (0-33); Albumin Level 3.9 g/dL (3.5-5.2); Alkaline Phosphatase 107 U/L (35-105); Aspartate Amino Transferase 13 U/L (0-32); Blood Urea Nitrogen 27 mg/dL (8-23); Calcium 9.6 mg/dL (8.5-10.5); Carbon Dioxide 31 mmol/L (22-29); Chloride 95 mmol/L (98-107); Glomerular Filtration Rate 37.4 mL/min (90-130); Glucose 390 mg/dL (65-115); NT Pro B Type Natriuretic Pept 790 pg/mL (0-125); Osmolality Calculated 303 mOsm/kg (285-295); Sodium 136 mmol/L (136-145); Total Bilirubin 0.2 mg/dL (0.15-1.2); Total Protein 5.9 g/dL (6.6-8.7)
[2023-04-04 14:12] LABS: Creatinine Clr Calc Pharmacy 54.1222
[2023-04-04 14:13] LABS: Anion Gap 14.1 (5-19); Potassium 4.1 mmol/L (3.5-5.1)
[2023-04-04 15:00] LABS: Urine Appearance Clear (CLEAR); Urine Color Yellow (Yellow); pH Urine 6 (5-7)
[2023-04-04 15:01] LABS: Add Urine Microscopic? YES; Bilirubin Urine Neg (Negative); Blood Urine Trace (Negative); Glucose Urine UA 4+ (Normal); Ketones Urine Negative (Negative); Leukocyte Esterase Urine Negative (Negative); Nitrate Urine Negative (Negative); Protein Urine 1+ (Negative); Urobilinogen Urine Norm (Negative)
--- NOTE | 2023-04-04 15:12 | ECG_ITS ---
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 Measurements Intervals [place] Rate: 73 P: 0 [place]: 0 QRS: 46 QRSD: 97 T: 9 QT: 394 QTc: 437 Interpretive Statements ATRIAL FLUTTER/TACHYCARDIA INCOMPLETE RIGHT BUNDLE BRANCH BLOCK [90+ ms QRS DURATION, TERMINAL R IN V1/V2, 40+ ms S IN I/aVL/V4/V5/V6] MODERATE ST DEPRESSION [0.05+ mV ST DEPRESSION] Compared to ECG 04/04/2023 13:13:19 ST (T wave) deviation now present T-wave abnormality no longer present Electronically Signed On 04-04-2023 19:45:17 CDT by Sherman Chapman M.D. [id number]
[2023-04-04 15:14] LABS: Add Urine Culture? No; Bacteria Urine TRACE /hpf; Hyaline Casts Urine RARE /lpf; RBC Urine 0-4 /hpf (0-2); Squamous Epithelial Cell Urine 0-4 /hpf (0-5); WBC Urine 0-4 /hpf (0-5)
== END 2023-04-04 17:20 | disposition home or self-care (01) ==
PROVIDERS: Emergency Provider Internal Medicine; PCP Family Medicine
DX: R07.89 Other chest pain (principal); I48.20 Chronic atrial fibrillation, unspecified; Z79.85 Long-term (current) use of injectable non-insulin antidiabetic drugs; Z79.4 Long term (current) use of insulin; Z79.02 Long term (current) use of antithrombotics/antiplatelets; I25.10 Atherosclerotic heart disease of native coronary artery without angina pectoris; E11.22 Type 2 diabetes mellitus with diabetic chronic kidney disease; I12.9 Hypertensive chronic kidney disease with stage 1 through stage 4 chronic kidney disease, or unspecified chronic kidney disease; N18.9 Chronic kidney disease, unspecified; E78.5 Hyperlipidemia, unspecified
CPT/HCPCS: 36415; 71045; 80053; 81001; 83880; 84484; 85025; 85610; 85730; 93005; 99285

== ENCOUNTER 2023-04-11 12:05 | Emergency (ER) | payer MEDICARE, MEDICAID, SELFPAY ==
[2023-04-11 12:06] VITALS: BMI 42.5
[2023-04-11 12:09] VITALS: BP 158/90; PULSE 75; RESP 16; TEMP 37.1; O2SAT 94
--- NOTE | 2023-04-11 12:19 | XRR_ITS ---
PROCEDURE INFORMATION: Exam: XR Chest Exam date and time: 04/11/2023 12:23 PM Age: 67 years old Clinical indication: Dyspnea; Prior surgery; Surgery date: 6+ months; Surgery type: RT breast; Patient HX: N/v TECHNIQUE: Imaging protocol: Radiologic exam of the chest. Views: 1 view. COMPARISON: CR XR chest 1V portable [id number] 04/04/2023 1:36 PM FINDINGS: Lungs: Unremarkable. No consolidation. Pleural spaces: Unremarkable. No pleural effusion. No pneumothorax. Heart/Mediastinum: Unchanged cardiomegaly. Bones/joints: Unremarkable. XR/XR chest 1V portable [id number] IMPRESSION: Stable chest.
--- NOTE | 2023-04-11 12:21 | ED_ITS ---
HPI - Nausea/Vomiting/Diarrhea General: Chief complaint: Nausea/Vomiting/Diarrhea Stated complaint: N/V, Back Pain Time Seen by Provider: 04/11/23 12:19 History of Present Illness: 67-year-old female presents the emergency department by ambulance. Patient was admitted to the hospital back in February for discomfort between her shoulder blades. She had an abnormal cardiac imaging which led to angiography and PCI. Ever since then she has not been the same person according to her home health aide. Patient tells me that she does not have much appetite, she is frequently nauseated, she cannot sleep. At times she is tearful and very anxious. She was in the emergency department last Sunday and worked up for similar symptoms. Today she reports last night she had a pain in her right upper quadrant as well as nausea. She has felt short of breath since even before her last hospitalization. Sometimes the shortness of breath is worse than others. She cannot identify any aggravating or alleviating factors nor any timing or exertional component. She denies having sleep apnea. She does use home oxygen. She has a history of amiodarone pulmonary toxicity. On arrival she is 96% on room air. Patient is tearful at times during our conversation. It is difficult for her because cardiac symptoms can present in so many ways and she is constantly having to worry about her symptoms and whether they are serious. Currently she denies any abdominal pain. She got Zofran IV by EMS and currently is not complaining of any nausea. She endorses her chronic shortness of breath but is not having one of her episodes where she feels more short of breath. No lower extremity pain swelling bruising redness or warmth. Associated symtoms: Denies altered mental status, change in vision, chest pain, dysuria, headache(s) or syncope Review of Systems General: Reports: 10 or more systems reviewed and unremarkable except in HPI and below Const: Denies: fever(s), chills or body aches Eyes: Denies: change in vision ENMT: Denies: throat pain Card: Denies: chest pain, edema or syncope Resp: Denies: productive cough GI: Denies: abdominal pain or diarrhea : Denies: flank pain, dysuria or urinary frequency Musc: Denies: neck pain, back pain, extremity pain or extremity swelling Skin/Breast: Denies: rash or erythema Neuro: Denies: headache(s), numbness in extremities, weakness in extremities, lack of coordination or difficulty walking PFSH ED PFSH: Medical History Amiodarone pulmonary toxicity Atrial fibrillation CAD (coronary artery disease) Last echocardiogram 08/06 with EF of 50% Stents x 3 - last in 02/2023 Chronic pain She reports taking pain medicines and muscle relaxers for a recent back injury; she has chronic left leg pain. Chronic respiratory failure CKD (chronic kidney disease) Community acquired pneumonia Depression Diabetes type 2, uncontrolled Fibromyalgia Gout HTN (hypertension) Hypercholesteremia Hyperlipidemia Hypothyroidism Influenza A Major depressive disorder, recurrent severe without psychotic features MRSA (methicillin resistant staph aureus) culture positive Polypharmacy Psychiatric care Type 2 diabetes mellitus Vitamin B12 deficiency Surgical History H/O cardiac radiofrequency ablation H/O section H/O eye surgery H/O left knee surgery History of back surgery History of carpal tunnel release History of coronary artery stent placement History of hysterectomy partial History of incision and drainage Right breast abscess Hx of cholecystectomy Family History Mother Cancer breast Stroke Brother Heart disease Asthma Cancer prostate Sister Heart disease Social History Smoking and tobacco/nicotine status: never used tobacco/nicotine Alcohol intake: never Substance/Drug Use: never Housing: Other Details: Currently with her family Physical Exam Narrative: EXAM NARRATIVE: Patient is nontoxic in appearance. She is morbidly obese. She appears chronically unhealthy. At times she is tearful. She has an irregular rhythm. Abdomen is soft, nontender, nondistended, without any guarding. No lower extremity signs of DVT or cellulitis. There are a few abrasions on her lower extremities she says are from scratching. Const: COMMON NORMALS: no limitations, alert and well nourished EXAM LIMITATIONS: no altered mental status HENMT: COMMON NORMALS: normocephalic, atraumatic and external ears normal HEAD & SCALP: normocephalic and atraumatic EXTERNAL EAR: Yes external ears normal MOUTH: no muffled voice Eye: COMMON NORMALS: EOMs intact bilaterally, conjunctivae normal and no scleral icterus CONJUNCTIVA: Yes conjunctivae normal Neck/C-Spine: COMMON NORMALS: no JVD GENERAL: Yes normal visual inspection and Yes trachea midline Resp: COMMON NORMALS: normal respiratory effort, No use of accessory muscles and clear to auscultation bilaterally AUSCULTATION: clear to auscultation bilaterally Cardio: COMMON NORMALS: no JVD and regular rate RATE: regular rate GI: COMMON NORMALS: Soft to palpation and non-tender PALPATION: Yes Soft to palpation and No Guarding due to palpation present (GI) Extremity: COMMON NORMALS: normal to inspection Neuro: COMMON NORMALS: moves all extremities, no focal motor deficits and no sensory deficits noted SENSORIUM/ORIENTATION: Yes alert SPEECH: speech normal Psych: COMMON NORMALS: mental status grossly normal, Normal thought process present, cooperative and speech normal SPEECH: Yes normal speech THOUGHT PROCESS: Normal thought process present Skin: COMMON NORMALS: turgor normal and no jaundice GENERAL SKIN EXAM: turgor normal Course Vital Signs: Vital signs: Vital Signs Temperature 98.8 F 04/11/23 12:09 Pulse Rate 68 04/11/23 14:35 Respiratory Rate 28 H 04/11/23 14:35 Blood Pressure 135/76 04/11/23 14:35 Pulse Oximetry 96 04/11/23 14:35 Oxygen Delivery Me thod Room Air 04/11/23 14:35 MDM - Nausea/Vomiting/Diarrhea Medical Decision Making Patient's symptoms are nonspecific. Her exam is not suggesting acute abdomen, significant dehydration, signs of clinically sig metabolic acidosis, GI obstruction, respiratory distress (she was documented to be on 2L but is not, I asked RN to correct), nor other life threats. We'll check glucose, lytes, trop, ekg, cxr, lipase, LFTs. UPDATE: The patient's daughter came to speak with me privately. She says in fact the patient has been drinking fluids and is getting more nutrition than she leads on. However, she is experiencing significant signs of depression. She has been sitting in her chair not doing anything for so long that she is starting to get pressure sores on her buttock. Daughter states she does not eat what she should. She is exhibiting signs of anxiety and depression that the daughter has acute and on including frequent crying, low energy, anhedonia, poor focus, poor sleep, etc. Her EKG today shows atrial fibrillation, rate 74, QRS 126 with a right bundle branch block, no concerning ST segment elevations or depressions. Her labs demonstrate improving kidney function, stable troponin, normal LFTs. Minimally elevated lipase which is clinically insignificant. Chest x-ray on my interpretation shows cardiomegaly with no other significant findings. Patient was given some Xanax, Compazine, Benadryl for her symptoms. This seemed to help her significantly. She was able to get some rest. We did have to put her back on her supplemental oxygen after these medications. I went in to reassess her and she was calm and in no distress. She continues to have a normal work of breathing. Although the patient does have significant chronic disease, I do not think she has any acute process other than medical anxiety and depression. Will refer to outpatient for treatment. She is currently taking Ativan as needed for sleep and buspirone for anxiety. I spent quite a long time with her explaining why I think is very reasonable that she has medical anxiety and depression given her recurrent need for PCI as well as her other chronic disease processes. Lab Data 04/11/23 12:40 04/11/23 12:40 Radiology Impressions Chest X-Ray 04/11/23 12:19 IMPRESSION: Stable chest. Laboratory Results WBC 8.67 10^3/uL (3.29-11.43) 04/11/23 12:40 RBC 5.17 10^6/uL (3.85-5.65) 04/11/23 12:40 Hgb 15.00 g/dL (11.27-16.99) 04/11/23 12:40 Hct 46.9 % (36-47) 04/11/23 12:40 MCV 90.7 fl (85-98) 04/11/23 12:40 MCH 29.0 pg (27-33) 04/11/23 12:40 MCHC 32.0 g/dL (30-55) 04/11/23 12:40 RDW 15.7 % (12.1-15.1) H 04/11/23 12:40 Plt Count 253 10^3/cmm (157-399) 04/11/23 12:40 MPV 10.6 fL (7.4-10.4) H 04/11/23 12:40 Neut % (Auto) 62.3 % 04/11/23 12:40 Lymph % (Auto) 22.4 % 04/11/23 12:40 [place] % (Auto) 8.2 % 04/11/23 12:40 Eos % (Auto) 5.2 % 04/11/23 12:40 Baso % (Auto) 0.9 % 04/11/23 12:40 Neut # (Auto) 5.40 10^3/uL (1.8-7.7) 04/11/23 12:40 Lymph # (Auto) 1.9 10^3/uL (0.8-4.8) 04/11/23 12:40 [place] # (Auto) 0.7 10^3/uL (0.2-0.9) 04/11/23 12:40 Eos # (Auto) 0.5 10^3/uL (0.0-0.8) 04/11/23 12:40 Baso # (Auto) 0.1 10^3/uL (0.0-0.1) 04/11/23 12:40 Nucleated RBC % (auto) 0 % 04/11/23 12:40 Nucleated RBCs # 0.0 /100WBC 04/11/23 12:40 Sodium 142 mmol/L (136-145) 04/11/23 12:40 Potassium 3.8 mmol/L (3.5-5.1) 04/11/23 12:40 Chloride 104 mmol/L (98-107) 04/11/23 12:40 Carbon Dioxide 25 mmol/L (22-29) 04/11/23 12:40 Anion Gap 16.8 (5-19) 04/11/23 12:40 BUN 20 mg/dL (8-23) 04/11/23 12:40 Creatinine 1.2 mg/dL (0.5-0.9) H 04/11/23 12:40 GFR Calculation 44.7 mL/min (90-130) L 04/11/23 12:40 Glucose 143 mg/dL (65-115) H 04/11/23 12:40 Calculated Osmolality 299 mOsm/kg (285-295) H 04/11/23 12:40 Calcium 8.8 mg/dL (8.5-10.5) 04/11/23 12:40 Total Bilirubin 0.4 mg/dL (0.15-1.2) 04/11/23 12:40 AST 13 U/L (0-32) 04/11/23 12:40 ALT 19 U/L (0-33) 04/11/23 12:40 Alkaline Phosphatase 100 U/L (35-105) 04/11/23 12:40 Troponin T Baseline 23 ng/L (0-10) H 04/11/23 12:40 Total Protein 5.7 g/dL (6.6-8.7) L 04/11/23 12:40 Albumin 4.0 g/dL (3.5-5.2) 04/11/23 12:40 Globulin 1.7 g/dL (1.3-4.6) 04/11/23 12:40 Lipase 67 U/L (13-60) H 04/11/23 12:40 Urine Color Colorless (Yellow) 04/11/23 14:20 Urine Appearance Clear (CLEAR) 04/11/23 14:20 Urine pH 7 (5-7) 04/11/23 14:20 Ur Specific [place] 1.010 (1.005-1.030) 04/11/23 14:20 Urine Protein Neg (Negative) 04/11/23 14:20 Urine Glucose (UA) Norm (Normal) 04/11/23 14:20 Urine Ketones Negative (Negative) 04/11/23 14:20 Urine Blood Neg (Negative) 04/11/23 14:20 Urine Nitrate Negative (Negative) 04/11/23 14:20 Urine Bilirubin Neg (Negative) 04/11/23 14:20 Urine Urobilinogen Norm mg/dL (Negative) 04/11/23 14:20 Ur Leukocyte Esterase Negative (Negative) 04/11/23 14:20 All radiology interpretation(s) finalized by discharge Discharge Plan Discharge Patient Disposition: Home Clinical Impression: Anxiety disorder due to medical condition, Positive depression screening, Nausea, Chronic dyspnea, History of CAD (coronary artery disease) Condition: Stable Prescriptions: No Action albuterol sulfate [ProAir HFA] 90 mcg/actuation HFA aerosol inhaler 2 puff INHALATION Q6H PRN (Reason: Shortness Of Breath) ipratropium-albuterol 0.5 mg-3 mg(2.5 mg base)/3 mL solution for nebulization 3 ml inhalation Q6H PRN (Reason: shortness of breath or wheezing) Qty: 180 3RF (DME) FreeStyle Lou 14 Day Sensor Kit See Rx Instructions .Route Qty: 1 12RF Rx Instructions: As directed (DME) FreeStyle Lou 14 Day [facility] [place] See Rx Instructions .Route Qty: 1 0RF Rx Instructions: As directed ketoconazole 2 % cream 1 applic topical BID Qty: 30 3RF Rx Instructions: Apply to affected areas in skin folds X3 weeks then PRN for flares. miconazole nitrate [Antifungal (miconazole)] 2 % powder 1 applic topical DAILY Qty: 85 3RF Rx Instructions: Apply daily to affected areas and pillow-case. triamcinolone acetonide 0.1 % ointment 1 applic topical BID Qty: 454 2RF Rx Instructions: apply to affected area no more than 2 weeks per month. not for face clobetasol 0.05 % solution 1 applic topical BID 14 Days Qty: 50 3RF Rx Instructions: Apply a few drops to itchy areas on scalp as needed. ammonium lactate 12 % lotion 1 applic topical BID PRN (Reason: stucco keratosis) Qty: 225 2RF Rx Instructions: Apply to dry areas of skin 1-2 times a day. (DME) FreeStyle Lou 14 Day Sensor Kit See Rx Instructions .Route Qty: 1 0RF Rx Instructions: As directed furosemide 40 mg tablet 120 mg PO BID Qty: 180 6RF sulfamethoxazole-trimethoprim [Bactrim DS] 800-160 mg tablet 1 tab PO BID Qty: 14 0RF (DME) FreeStyle Lou 14 Day Sensor Kit See Rx Instructions .Route Qty: 2 11RF Rx Instructions: As directed buspirone 10 mg tablet 10 mg PO TID Qty: 90 1RF Rx Instructions: Take one tablet morning, afternoon, and evening Trintellix 10 mg tablet 10 mg PO DAILY Qty: 30 1RF Rx Instructions: Take one tablet daily; stop duloxetine cyanocobalamin (vitamin B-12) [Vitamin B-12] 1,000 mcg tablet 1,000 mcg PO DAILY Qty: 30 6RF ondansetron HCl 4 mg tablet 4 mg PO Q8H PRN (Reason: nausea and vomiting) Qty: 30 3RF allopurinol 300 mg tablet 300 mg PO DAILY Qty: 90 3RF apixaban 5 mg tablet 5 mg PO BID Qty: 180 3RF diltiazem HCl 120 mg capsule,extended release 24hr 120 mg PO DAILY Qty: 90 3RF levothyroxine 50 mcg tablet 50 mcg PO DAILY Qty: 90 3RF metoprolol tartrate 100 mg tablet 100 mg PO BID Qty: 60 6RF potassium chloride 20 mEq tablet,ER particles/crystals 20 meq PO BID Qty: 180 3RF simvastatin 40 mg tablet 40 mg PO QPM Qty: 90 3RF Trulicity 0.75 mg/0.5 mL pen injector 0.75 mg SUBCUT Q7D Qty: 2 6RF Rx Instructions: on Sunday Lantus U-100 Insulin 100 unit/mL solution 90 unit SUBCUT BID Qty: 80 6RF lorazepam 1 mg tablet 1 mg PO BID PRN (Reason: anxiety) Qty: 60 1RF clopidogrel 75 mg tablet 75 mg PO DAILY Qty: 90 3RF pregabalin 50 mg capsule 50 mg PO BID Qty: 60 5RF acetaminophen 500 mg Tablet 1,000 mg PO Q6H PRN (Reason: Pain) nitroglycerin [Nitrostat] 0.4 mg Tablet, Sublingual 0.4 mg SUBLINGUAL Q5M PRN (Reason: Chest Pain) Rx Instructions: do not exceed 3 doses per episode hydrocodone-acetaminophen 5-325 mg tablet 1 tab PO Q6H PRN (Reason: pain (scale score 7-10)) Qty: 10 0RF ketoconazole 2 % shampoo 1 applic topical Q3D Rx Instructions: Lather into scalp 2-3 times weekly. Allow to sit on scalp 5 minutes before rinsing. Discharge Orders: Discharge ED (Routine); Ordered 04/11/23 Ordered By: Brandt Saeed Referrals: Farhat Acosta MD [Primary Care Provider] - 4-7 days (Patient has screened positive for anxiety and depression that seem to be related to her medical conditions. Having frequent somatic symptoms. She is unsure when to be concerned about them given the multitude of anginal equivalent symptoms.) Discharge Diet: Advance as tolerated Discharge Activity: Resume usual activity Patient Instructions: Acute Nausea and Vomiting (ED), Depression in Older Adul ts (ED), Opioid Safety, Pain Management Activity Restrictions/Additional Instructions: Please read all discharge instructions and abide by recommendations and return precautions. Make an appointment to follow-up with your primary care doctor as directed for follow-up. Return to ER if getting worse or other emergent symptoms. 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
[2023-04-11] MEDS: ALPRAZolam 0.5 mg Tablet 0.25 MG PO (12:33)
[2023-04-11] MEDS: diphenhydrAMINE 50 mg/mL SDV 1mL 25 MG IVP (12:33)
[2023-04-11] MEDS: sodium chloride 0.9% 500 ML 999 ML IV (12:34)
--- NOTE | 2023-04-11 12:42 | ECG_ITS ---
[facility] Test Date: 2023-04-11 Pat Name: Shauna Sena Department: Room: Gender: Female Physician Ophthalmologist: : 1955 Requested By: Brandt Saeed Order Number: [id number] Rahel MD: Seth Santillan M.D. Measurements Intervals [place] Rate: 74 P: 0 VA: 0 QRS: 22 QRSD: 126 T: -8 QT: 406 QTc: 453 Interpretive Statements ATRIAL FLUTTER RIGHT BUNDLE BRANCH BLOCK [120+ ms QRS DURATION, UPRIGHT V1, 40+ ms S IN I/aVL/V4/V5/V6] Compared to ECG 04/04/2023 15:17:59 Right bundle-branch block now present Incomplete right bundle-branch block no longer present ST (T wave) deviation no longer present Electronically Signed On 04-11-2023 19:07:39 CDT by Seth Santillan M.D. [id number]
[2023-04-11 12:47] LABS: Basophils # 0.1 10^3/uL (0.0-0.1); Basophils % 0.9 %; Eosinophils # 0.5 10^3/uL (0.0-0.8); Eosinophils % 5.2 %; Hematocrit 46.9 % (36-47); Lymphocytes # 1.9 10^3/uL (0.8-4.8); Lymphocytes % 22.4 %; Mean Corpuscular Volume 90.7 fl (85-98); Mean Platelet Volume 10.6 fL (7.4-10.4); Monocytes # 0.7 10^3/uL (0.2-0.9); Monocytes % 8.2 %; Neutrophils % 62.3 %; Nucleated Red Blood Cells % 0 %; Platelet Count 253 10^3/cmm (157-399); Red Blood Count 5.17 10^6/uL (3.85-5.65); Red Cell Distribution Width 15.7 % (12.1-15.1); White Blood Count 8.67 10^3/uL (3.29-11.43)
[2023-04-11] MEDS: prochlorperazine 10 mg/2 mL Inj 5 MG IVP (12:49)
[2023-04-11 13:09] LABS: Troponin(5th) Baseline 23 ng/L (0-10)
[2023-04-11 13:10] LABS: Alanine Aminotransferase 19 U/L (0-33); Alkaline Phosphatase 100 U/L (35-105); Aspartate Amino Transferase 13 U/L (0-32); Blood Urea Nitrogen 20 mg/dL (8-23); Calcium 8.8 mg/dL (8.5-10.5); Carbon Dioxide 25 mmol/L (22-29); Chloride 104 mmol/L (98-107); Globulin 1.7 g/dL (1.3-4.6); Glomerular Filtration Rate 44.7 mL/min (90-130); Glucose 143 mg/dL (65-115); Lipase 67 U/L (13-60); Osmolality Calculated 299 mOsm/kg (285-295); Sodium 142 mmol/L (136-145); Total Bilirubin 0.4 mg/dL (0.15-1.2); Total Protein 5.7 g/dL (6.6-8.7)
[2023-04-11 13:14] LABS: Anion Gap 16.8 (5-19); Potassium 3.8 mmol/L (3.5-5.1)
--- NOTE | 2023-04-11 14:13 | PC.NURSE ---
PT REPORT WAS GIVEN TO ME BY THAI ERAZO RN
--- NOTE | 2023-04-11 14:13 | PC.NURSE ---
PT WAS ASSISTED TO BED SIDE CAMODE AND INSTRUCTED TO PEE IN HAT FOR URINE SAMPLE. THEN TO HIT CALL LIGHT WHEN DONE
[2023-04-11 14:35] VITALS: BP 135/76; PULSE 68; RESP 28; O2SAT 96
[2023-04-11 14:42] LABS: Add Urine Microscopic? NO; Charge for UA Resulting for Rev
[2023-04-11 14:43] LABS: Bilirubin Urine Neg (Negative); Blood Urine Neg (Negative); Glucose Urine UA Norm (Normal); Ketones Urine Negative (Negative); Leukocyte Esterase Urine Negative (Negative); Nitrate Urine Negative (Negative); Protein Urine Neg (Negative); Urine Appearance Clear (CLEAR); Urine Color Colorless (Yellow); Urobilinogen Urine Norm (Negative); pH Urine 7 (5-7)
== END 2023-04-11 14:58 | disposition home or self-care (01) ==
PROVIDERS: Emergency Provider Emergency Medicine; PCP Family Medicine
DX: F06.4 Anxiety disorder due to known physiological condition (principal); I25.10 Atherosclerotic heart disease of native coronary artery without angina pectoris; R11.0 Nausea; R06.09 Other forms of dyspnea; F32.A Depression, unspecified; Z79.02 Long term (current) use of antithrombotics/antiplatelets; Z79.85 Long-term (current) use of injectable non-insulin antidiabetic drugs; Z79.4 Long term (current) use of insulin; E11.22 Type 2 diabetes mellitus with diabetic chronic kidney disease; I12.9 Hypertensive chronic kidney disease with stage 1 through stage 4 chronic kidney disease, or unspecified chronic kidney disease; N18.9 Chronic kidney disease, unspecified; E78.5 Hyperlipidemia, unspecified
CPT/HCPCS: 36415; 71045; 80053; 81003; 83690; 84484; 85025; 93005; 96361; 96374; 96375; 99285; J0780; J1200; J7040

== ENCOUNTER → 2023-05-24 09:37 | Outpatient (BNVA) | payer MEDICARE, SELFPAY | PROVIDERS: PCP Family Medicine; Visit Provider Internal Medicine Cardiovascular Disease | DX: I25.10 Atherosclerotic heart disease of native coronary artery without angina pectoris (principal); I12.9 Hypertensive chronic kidney disease with stage 1 through stage 4 chronic kidney disease, or unspecified chronic kidney disease; N18.9 Chronic kidney disease, unspecified; I48.91 Unspecified atrial fibrillation; Z79.01 Long term (current) use of anticoagulants | CPT/HCPCS: 99214 ==

== ENCOUNTER 2023-08-13 21:18 | Emergency (ER) | payer MEDICARE, MEDICAID, SELFPAY ==
--- NOTE | 2023-08-13 21:22 | XRR_ITS ---
PROCEDURE INFORMATION: Exam: XR Chest Exam date and time: 08/13/2023 9:55 PM Age: 67 years old Clinical indication: Other: Swelling in ext; Additional info: SOB TECHNIQUE: Imaging protocol: Radiologic exam of the chest. Views: 1 view. COMPARISON: CR XR chest 1V portable [id number] 04/11/2023 12:23 PM FINDINGS: Lungs: Extensive reticulonodular opacities seen throughout both lungs. Pleural spaces: No pleural effusion. No pneumothorax. Heart/Mediastinum: Moderate cardiomegaly. Bones/joints: Age appropriate. XR/XR chest 1V portable [id number] IMPRESSION: Heterogeneous reticulonodular airspace opacities could reflect pneumonia. In the setting of cardiomegaly, atypical edema is also a consideration. No pleural fluid.
--- NOTE | 2023-08-13 21:22 | ECG_ITS ---
[facility] Test Date: 2023-08-13 Pat Name: Shauna Sena Department: Room: Gender: Female T Rail Turner: : 1955 Requested By: Nadeem Fontaine Order Number: [id number] Rahel MD: Sherman Chapman M.D. Measurements Intervals [place] Rate: 74 P: 0 MO: 0 QRS: 6 QRSD: 105 T: 27 QT: 424 QTc: 473 Interpretive Statements ATRIAL FLUTTER/atrial fibrillation WITH ABERRANT CONDUCTION OR VENTRICULAR PREMATURE COMPLEXES LOW QRS VOLTAGE IN PRECORDIAL LEADS [QRS DEFLECTION < 1.0 mV IN CHEST LEADS] INCOMPLETE RIGHT BUNDLE BRANCH BLOCK [90+ ms QRS DURATION, TERMINAL R IN V1/V2, 40+ ms S IN I/aVL/V4/V5/V6] NONSPECIFIC ST & T-WAVE ABNORMALITY ABNORMAL RHYTHM ECG Compared to ECG 04/11/2023 12:42:07 Ventricular premature complex(es) now present Aberrant conduction of supraventricular beat(s) now present Low QRS voltage now present Incomplete right bundle-branch block now present.T-wave abnormality now present Right bundle-branch block no longer present Electronically Signed On 08-14-2023 0:43:42 TANBARK PEELER by Sherman Chapman M.D. [id number]
[2023-08-13 21:35] VITALS: BP 142/78; PULSE 90; RESP 16; TEMP 36.7; O2SAT 93
[2023-08-13 21:58] LABS: Basophils # 0.1 10^3/uL (0.0-0.1); Basophils % 0.8 %; Eosinophils # 0.2 10^3/uL (0.0-0.8); Eosinophils % 2.2 %; Hematocrit 46.3 % (36-47); Lymphocytes # 1.7 10^3/uL (0.8-4.8); Lymphocytes % 18.3 %; Mean Corpuscular Hemoglobin 28.5 pg (27-33); Mean Corpuscular Volume 89.2 fl (85-98); Mean Platelet Volume 10.3 fL (7.4-10.4); Monocytes # 0.7 10^3/uL (0.2-0.9); Monocytes % 7.6 %; Neutrophils # 6.57 10^3/uL (1.8-7.7); Neutrophils % 70.6 %; Nucleated Red Blood Cells % 0 %; Platelet Count 238 10^3/cmm (157-399); Red Blood Count 5.19 10^6/uL (3.85-5.65); Red Cell Distribution Width 15.9 % (12.1-15.1)
[2023-08-13 22:25] LABS: Alanine Aminotransferase 22 U/L (0-33); Albumin Level 3.4 g/dL (3.5-5.2); Alkaline Phosphatase 96 U/L (35-105); Anion Gap 13.6 (5-19); Aspartate Amino Transferase 12 U/L (0-32); Blood Urea Nitrogen 30 mg/dL (8-23); Calcium 8.8 mg/dL (8.5-10.5); Carbon Dioxide 29 mmol/L (22-29); Chloride 103 mmol/L (98-107); Creatinine Clr Calc Pharmacy 54.1222; Globulin 2.6 g/dL (1.3-4.6); Glomerular Filtration Rate 37.4 mL/min (90-130); Glucose 169 mg/dL (65-115); NT Pro B Type Natriuretic Pept 1120 pg/mL (0-125); Osmolality Calculated 304 mOsm/kg (285-295); Potassium 3.6 mmol/L (3.5-5.1); Sodium 142 mmol/L (136-145); Total Bilirubin 0.3 mg/dL (0.15-1.2)
[2023-08-13] MEDS: metOLazone 5 MG Tablet 10 MG PO (23:27)
--- NOTE | 2023-08-13 23:29 | ED_ITS ---
HPI - SOB/Dyspnea 2 General: Chief Complaint: Shortness of Breath/Dyspnea Stated Complaint: Swelling in leg and feet, SOB Time Seen by Provider: 08/13/23 22:49 History of Present Illness: HPI Narrative: Patient presents to the ER with complaints of shortness of breath. She says it started several days ago. Patient is on a rather large dose of Lasix daily. She says she has doubled up her Lasix for the last 3 days and it has not helped. Patient states she is swelling more in her lower extremities than normal and increasing her Lasix did not change it. Patient denies any fever chills coughs colds etc. Patient does have a history of CHF and COPD and is on oxygen at all times. Patient is currently satting 93% on her home O2 settings Review of Systems 2 General: Reports: 10 or more systems reviewed and unremarkable except in HPI and below PFSH ED 2 PFSH: Medical History Type 2 diabetes mellitus MRSA (methicillin resistant staph aureus) culture positive Influenza A Community acquired pneumonia Vitamin B12 deficiency Diabetes type 2, uncontrolled Psychiatric care Polypharmacy Gout Hyperlipidemia Hypothyroidism Fibromyalgia Depression CKD (chronic kidney disease) Chronic respiratory failure Amiodarone pulmonary toxicity Atrial fibrillation Hypercholesteremia HTN (hypertension) CAD (coronary artery disease) Last echocardiogram 08/06 with EF of 50% Stents x 3 - last in 02/2023 Major depressive disorder, recurrent severe without psychotic features Chronic pain She reports taking pain medicines and muscle relaxers for a recent back injury; she has chronic left leg pain. Surgical History History of incision and drainage Right breast abscess History of coronary artery stent placement H/O left knee surgery Hx of cholecystectomy History of hysterectomy partial H/O section History of back surgery H/O eye surgery History of carpal tunnel release H/O cardiac radiofrequency ablation Family History Mother Cancer breast Stroke Brother Heart disease Asthma Cancer prostate Sister Heart disease Social History Smoking and tobacco/nicotine status: never used tobacco/nicotine Alcohol intake: never Substance/Drug Use: never Housing: Other Details: Currently with her family Physical Exam 2 Const: COMMON NORMALS: no acute distress, average body habitus, patient oriented x3, no limitations, healthy appearing, alert and well nourished HENMT: COMMON NORMALS: normocephalic, atraumatic, hearing grossly normal bilaterally, external ears normal, EAC's normal, Normal external nose present, moist oral mucous membranes and oropharynx normal HEAD & SCALP: normocephalic and atraumatic NOSE: Normal external nose present EXTERNAL EAR: Yes external ears normal EXTERNAL AUDITORY CANAL: EAC's normal Neck/C-Spine: COMMON NORMALS: no JVD Chest: COMMONS NORMALS: normal inspection of the chest and normal palpation of entire chest wall Resp: COMMON NORMALS: normal respiratory effort, No retractions, No use of accessory muscles and clear to auscultation bilaterally AUSCULTATION: clear to auscultation bilaterally Cardio: COMMON NORMALS: no JVD, regular rate, regular rhythm, S1 normal heart sound present, S2 normal heart sound present, No gallops present (Cardio), No clicks present (Cardio), No murmurs present (Cardio) and No rub (Cardio) R ATE: regular rate RHYTHM: regular rhythm HEART SOUNDS: S1 normal heart sound present and S2 normal heart sound present GI: COMMON NORMALS: Normal to inspection, nondistended, normoactive bowel sounds present, Soft to palpation, non-tender, No hepatosplenomegaly present and no masses PALPATION: Yes Soft to palpation and Yes No hepatosplenomegaly present Extremity: NARRATIVE EXTREMITY EXAM: 1-2+ pitting edema bilateral lower extre mities Neuro: COMMON NORMALS: patient oriented x3 SENSORIUM/ORIENTATION: Yes alert Course 2 Vital Signs: Vital signs: Vital Signs Temperature 98.0 F 08/13/23 21:35 Pulse Rate 63 08/14/23 01:24 Respiratory Rate 24 H 08/14/23 01:24 Blood Pressure 164/77 08/14/23 01:24 Pulse Oximetry 98 08/14/23 01:24 Oxygen Delivery Me thod Nasal Cannula 08/14/23 01:24 Oxygen Flow Rate 3 08/14/23 01:24 MDM - SOB/Dyspnea Medical Decision Making Patient with physical exam as well as lab work and chest x-ray. BNP was slightly elevated and will 1120, BUN/creatinine was elevated at 30 and 1.4 white count was normal at 9.3. Chest x-ray showed airspace opacities that could reflect pneumonia but atypical edema is also a consideration. This patient does not have an elevated white count or no fever I think pneumonia is unlikely. Patient was given 10 mg of metolazone p.o. and diuresed well in ER. Patient be discharged on 10 mg of metolazone daily in addition to her normal Lasix dose for the next 5 days. Patient should follow-up with her PCP between 5 to 7 days for further evaluation testing. Differential Diagnosis Likely congestive heart failure; Unlikely acute exacerbation of chronic obstructive airways disease, community acquired pneumonia, asthma with exacerbation or pulmonary embolism Medical Records I reviewed the patient's medical records. Lab Data I reviewed the patient's lab results. 08/13/23 21:54 08/13/23 21:54 Labs/Radiology: Radiology Impressions Chest X-Ray 08/13/23 21:22 IMPRESSION: Heterogeneous reticulonodular airspace opacities could reflect pneumonia. In the setting of cardiomegaly, atypical edema is also a consideration. No pleural fluid. Laboratory Results WBC 9.30 10^3/uL (3.29-11.43) 08/13/23 21:54 RBC 5.19 10^6/uL (3.85-5.65) 08/13/23 21:54 Hgb 14.80 g/dL (11.27-16.99) 08/13/23 21:54 Hct 46.3 % (36-47) 08/13/23 21:54 MCV 89.2 fl (85-98) 08/13/23 21:54 MCH 28.5 pg (27-33) 08/13/23 21:54 MCHC 32.0 g/dL (30-55) 08/13/23 21:54 RDW 15.9 % (12.1-15.1) H 08/13/23 21:54 Plt Count 238 10^3/cmm (157-399) 08/13/23 21:54 MPV 10.3 fL (7.4-10.4) 08/13/23 21:54 Neut % (Auto) 70.6 % 08/13/23 21:54 Lymph % (Auto) 18.3 % 08/13/23 21:54 [place] % (Auto) 7.6 % 08/13/23 21:54 Eos % (Auto) 2.2 % 08/13/23 21:54 Baso % (Auto) 0.8 % 08/13/23 21:54 Neut # (Auto) 6.57 10^3/uL (1.8-7.7) 08/13/23 21:54 Lymph # (Auto) 1.7 10^3/uL (0.8-4.8) 08/13/23 21:54 [place] # (Auto) 0.7 10^3/uL (0.2-0.9) 08/13/23 21:54 Eos # (Auto) 0.2 10^3/uL (0.0-0.8) 08/13/23 21:54 Baso # (Auto) 0.1 10^3/uL (0.0-0.1) 08/13/23 21:54 Nucleated RBC % (auto) 0 % 08/13/23 21:54 Nucleated RBCs # 0.0 /100WBC 08/13/23 21:54 Sodium 142 mmol/L (136-145) 08/13/23 21:54 Potassium 3.6 mmol/L (3.5-5.1) 08/13/23 21:54 Chloride 103 mmol/L (98-107) 08/13/23 21:54 Carbon Dioxide 29 mmol/L (22-29) 08/13/23 21:54 Anion Gap 13.6 (5-19) 08/13/23 21:54 BUN 30 mg/dL (8-23) H 08/13/23 21:54 Creatinine 1.4 mg/dL (0.5-0.9) H 08/13/23 21:54 GFR Calculation 37.4 mL/min (90-130) L 08/13/23 21:54 Glucose 169 mg/dL (65-115) H 08/13/23 21:54 Calculated Osmolality 304 mOsm/kg (285-295) H 08/13/23 21:54 Calcium 8.8 mg/dL (8.5-10.5) 08/13/23 21:54 Total Bilirubin 0.3 mg/dL (0.15-1.2) 08/13/23 21:54 AST 12 U/L (0-32) 08/13/23 21:54 ALT 22 U/L (0-33) 08/13/23 21:54 Alkaline Phosphatase 96 U/L (35-105) 08/13/23 21:54 NT-Pro-B Natriuret Pep 1120 pg/mL (0-125) H 08/13/23 21:54 Total Protein 6.0 g/dL (6.6-8.7) L 08/13/23 21:54 Albumin 3.4 g/dL (3.5-5.2) L 08/13/23 21:54 Globulin 2.6 g/dL (1.3-4.6) 08/13/23 21:54 All radiology interpretation(s) finalized by discharge Discharge Plan Discharge Patient Disposition: Home Clinical Impression: Congestive heart failure Qualifiers: Heart failure type: unspecified Heart failure chronicity: acute on chronic Q ualified Code(s): I50.9 - Heart failure, unspecified Edema Qualifiers: Edema type: unspecified Qualified Code(s): R60.9 - Edema, unspecified Condition: Stable Prescriptions: New metolazone 10 mg tablet 10 mg PO DAILY Qty: 5 0RF No Action albuterol sulfate [ProAir HFA] 90 mcg/actuation HFA aerosol inhaler 2 puff INHALATION Q6H PRN (Reason: Shortness Of Breath) ipratropium-albuterol 0.5 mg-3 mg(2.5 mg base)/3 mL solution for nebulization 3 ml inhalation Q6H PRN (Reason: shortness of breath or wheezing) Qty: 180 3RF (DME) [id number] Lou 14 Day Sensor Kit See Rx Instructions .Route Qty: 1 12RF Rx Instructions: As directed ketoconazole 2 % cream 1 applic topical BID Qty: 30 3RF Rx Instructions: Apply to affected areas in skin folds X3 weeks then PRN for flares. miconazole nitrate [Antifungal (miconazole)] 2 % powder 1 applic topical DAILY Qty: 85 3RF Rx Instructions: Apply daily to affected areas and pillow-case. triamcinolone acetonide 0.1 % ointment 1 applic topical BID Qty: 454 2RF Rx Instructions: apply to affected area no more than 2 weeks per month. not for face clobetasol 0.05 % solution 1 applic topical BID 14 Days Qty: 50 3RF Rx Instructions: Apply a few drops to itchy areas on scalp as needed. ammonium lactate 12 % lotion 1 applic topical BID PRN (Reason: stucco keratosis) Qty: 225 2RF Rx Instructions: Apply to dry areas of skin 1-2 times a day. (DME) FreeStyle Lou 14 Day Sensor Kit See Rx Instructions .Route Qty: 1 0RF Rx Instructions: As directed sulfamethoxazole-trimethoprim [Bactrim DS] 800-160 mg tablet 1 tab PO BID Qty: 14 0RF (DME) FreeStyle Lou 14 Day Sensor Kit See Rx Instructions .Route Qty: 2 11RF Rx Instructions: As directed nitroglycerin [Nitrostat] 0.4 mg tablet, sublingual 0.4 mg SUBLINGUAL Q5M PRN (Reason: Chest Pain) Qty: 30 6RF Rx Instructions: do not exceed 3 doses per episode furosemide 40 mg tablet See Rx Instructions PO TID Qty: 270 6RF Rx Instructions: orally three times daily; Take 120mg orally twice a day and take a 3rd dose if increasing weight mupirocin 2 % ointment 1 applic topical TID Qty: 22 0RF cyanocobalamin (vitamin B-12) [Vitamin B-12] 1,000 mcg tablet 1,000 mcg PO DAILY Qty: 30 6RF ondansetron HCl 4 mg tablet 4 mg PO Q8H PRN (Reason: nausea and vomiting) Qty: 30 3RF allopurinol 300 mg tablet 300 mg PO DAILY Qty: 90 3RF apixaban 5 mg tablet 5 mg PO BID Qty: 180 3RF diltiazem HCl 120 mg capsule,extended release 24hr 120 mg PO DAILY Qty: 90 3RF levothyroxine 50 mcg tablet 50 mcg PO DAILY Qty: 90 3RF potassium chloride 20 mEq tablet,ER particles/crystals 20 meq PO BID Qty: 180 3RF simvastatin 40 mg tablet 40 mg PO QPM Qty: 90 3RF Trulicity 0.75 mg/0.5 mL pen injector 0.75 mg SUBCUT Q7D Qty: 2 6RF Rx Instructions: on Sunday Lantus U-100 Insulin 100 unit/mL solution 90 unit SUBCUT BID Qty: 80 6RF clopidogrel 75 mg tablet 75 mg PO DAILY Qty: 90 3RF pregabalin 50 mg capsule 50 mg PO BID Qty: 60 5RF (DME) FreeStyle Lou 14 Day [place] Misc See Rx Instructions .Route Qty: 1 12RF Rx Instructions: As directed metoprolol tartrate 100 mg tablet 100 mg PO BID Qty: 60 6RF (DME) insulin syringe-needle U-100 [BD Insulin Syringe] 1 mL 29 gauge x 1/2 syringe See Rx Instructions .Route Qty: 100 6RF Rx Instructions: As directed to inject insulin 2-3x/day lorazepam 1 mg tablet 1 mg PO BID PRN (Reason: anxiety) Qty: 60 2RF Trintellix 10 mg tablet 10 mg PO DAILY Qty: 30 1RF Rx Instructions: Take one tablet daily buspirone 10 mg tablet 10 mg PO TID Qty: 90 1RF Rx Instructions: Take one tablet morning, afternoon, and evening acetaminophen 500 mg Tablet 1,000 mg PO Q6H PRN (Reason: Pain) hydrocodone-acetaminophen 5-325 mg tablet 1 tab PO Q6H PRN (Reason: pain (scale score 7-10)) Qty: 10 0RF ketoconazole 2 % shampoo 1 applic topical Q3D Rx Instructions: Lather into scalp 2-3 times weekly. Allow to sit on scalp 5 minutes before rinsing. Discharge Orders: Discharge ED (Routine); Ordered 08/14/23 Ordered By: Jose Pringle Referrals: Farhat Acosta MD [Primary Care Provider] - 1 week Patient Instructions: Congestive Heart Failure, Leg Edema (ED) Activity Restrictions/Additional Instructions: Your evaluation in the ER showed your white count was normal but your BNP was elevated at approximate 1100, this along with your chest x-ray showing fluid in your lungs I feel you are fluid overloaded. The addition of the metolazone along with your standard dose of Lasix for the next 5 days will help dry off this excess fluid. Please follow-up with your family practice physician within the next 7 days for further evaluation and testing if needed. If your symptoms worsens please feel free to return to the ER. Coding Level of Care Code ED Spout Worker for Gerson Morgan
[2023-08-14 01:24] VITALS: BP 164/77; PULSE 63; RESP 24; O2SAT 98
== END 2023-08-14 01:24 | disposition home or self-care (01) ==
PROVIDERS: Emergency Medicine; Emergency Provider Emergency Medicine; PCP Family Medicine
DX: I13.0 Hypertensive heart and chronic kidney disease with heart failure and stage 1 through stage 4 chronic kidney disease, or unspecified chronic kidney disease (principal); E11.22 Type 2 diabetes mellitus with diabetic chronic kidney disease; N18.9 Chronic kidney disease, unspecified; I50.9 Heart failure, unspecified; R60.9 Edema, unspecified; Z79.85 Long-term (current) use of injectable non-insulin antidiabetic drugs; Z79.02 Long term (current) use of antithrombotics/antiplatelets; Z79.4 Long term (current) use of insulin; E78.5 Hyperlipidemia, unspecified; I25.10 Atherosclerotic heart disease of native coronary artery without angina pectoris
CPT/HCPCS: 36415; 71045; 80053; 83880; 85025; 93005; 99285

== ENCOUNTER 2023-08-15 13:47 | Emergency (ER) | payer MEDICARE, MEDICAID, SELFPAY ==
[2023-08-15] VITALS (71 sets, daily range): BP systolic 124–160; BP diastolic 72–121; PULSE 64–110; RESP 9–30; TEMP 36.6; O2SAT 86–100; BMI 42.5
--- NOTE | 2023-08-15 13:49 | ECG_ITS ---
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 Measurements Intervals [place] Rate: 73 P: 0 WI: 0 QRS: -16 QRSD: 105 T: 96 QT: 392 QTc: 432 Interpretive Statements ATRIAL FIBRILLATION LOW QRS VOLTAGE IN PRECORDIAL LEADS [QRS DEFLECTION < 1.0 mV IN CHEST LEADS] PATTERN CONSISTENT WITH PULMONARY DISEASE MODERATE ST DEPRESSION [0.05+ mV ST DEPRESSION] ABNORMAL QRS-T ANGLE [QRS-T AXIS DIFFERENCE > 60] Compared to ECG 08/13/2023 21:42:22 ST (T wave) deviation now present Atrial flutter no longer present Aberrant conduction of supraventricular beat(s) no longer present Incomplete right bundle-branch block no longer present T-wave abnormality no longer present Electronically Signed On 08-15-2023 15:25:01 INSULATING MACHINE OPERATOR by Seth Santillan M.D. [id number]
--- NOTE | 2023-08-15 13:50 | XR_ITS ---
WS: [id number] Exam: XR chest 1V portable [id number] Date/Time of Exam: 08/15/2023 2:01 PM Reason For Exam: sob Comparison 08/13/2023. Previously noted infiltrates in the upper lung zones show significant improvement. There is coarsenin g of interstitial markings throughout both lungs which may represent chronic change. No consolidating infiltrates are seen. No pleural effusions. There may be some mild widening of the mediastinum on th e RIGHT. Bony structures are intact. IMPRESSION: 1. Improved bilateral infiltrates since the previous study. 2. Coarsening of interstitial markings noted throughout both lungs probably representing chronic garcia ge. 3. There may be widening of the superior mediastinum on the RIGHT.
[2023-08-15 14:51] LABS: Basophils # 0.1 10^3/uL (0.0-0.1); Basophils % 0.6 %; Eosinophils # 0.2 10^3/uL (0.0-0.8); Eosinophils % 2.2 %; Hematocrit 50.3 % (36-47); Lymphocytes # 1.6 10^3/uL (0.8-4.8); Lymphocytes % 14.5 %; Mean Corpuscular HGB Conc 32.8 g/dL (30-55); Mean Corpuscular Hemoglobin 28.9 pg (27-33); Mean Corpuscular Volume 88.1 fl (85-98); Mean Platelet Volume 10.3 fL (7.4-10.4); Monocytes # 0.8 10^3/uL (0.2-0.9); Monocytes % 7.3 %; Neutrophils # 7.98 10^3/uL (1.8-7.7); Neutrophils % 74.8 %; Nucleated Red Blood Cells % 0 %; Platelet Count 287 10^3/cmm (157-399); Red Blood Count 5.71 10^6/uL (3.85-5.65); White Blood Count 10.67 10^3/uL (3.29-11.43)
[2023-08-15 15:09] LABS: INR 1.12 (0.8-1.2)
--- NOTE | 2023-08-15 15:19 | ED_ITS ---
Documented by User: Pipo Rico DO 08/15/23 17:44 HPI - SOB/Dyspnea 2 General: Chief Complaint: Shortness of Breath/Dyspnea Stated Complaint: sent by dr fluid build up, sob Time Seen by Provider: 08/15/23 14:47 Source: patient and family Mode of arrival: ambulatory Limitations: no limitations History of Present Illness: HPI Narrative: The patient with known coronary disease as well as congestive heart failure comes in because she feels like she is still retaining fluid. She was in the emergency department on Sunday and was given a diuretic at that time and felt some better but still feels like she is not urinating much if any at all. She states that she feels short of breath when she is up and about and has been wearing her oxygen continuously. She had a couple short episodes of chest pain as well. She has not had any issues with urinary retention in the past she states she is having loose stools and not constipated etc. and otherwise has not had fever or chills. She states she does feel bloated in her abdomen. Associated symptoms: Deny abdominal pain, extremity pain, fever(s), nausea, syncope or vomiting Review of Systems 2 Const: Denies: fever(s) or chills Eyes: Denies: change in vision ENMT: Denies: throat pain or odynophagia Card: Reports: irregular heart rhythm; Denies: syncope or pre-syncope Resp: Reports: dyspnea; Denies: productive cough or non-productive cough GI: Denies: abdominal pain, nausea, vomiting or diarrhea : Reports: oliguria; Denies: flank pain, difficulty voiding, dysuria or urinary frequency Musc: Denies: neck pain, back pain or extremity pain Skin/Breast: Denies: rash Neuro: Denies: headache(s), numbness in extremities or weakness in extremities PFSH ED 2 PFSH: Medical History Type 2 diabetes mellitus MRSA (methicillin resistant staph aureus) culture positive Influenza A Community acquired pneumonia Vitamin B12 deficiency Diabetes type 2, uncontrolled Psychiatric care Polypharmacy Gout Hyperlipidemia Hypothyroidism Fibromyalgia Depression CKD (chronic kidney disease) Chronic respiratory failure Amiodarone pulmonary toxicity Atrial fibrillation Hypercholesteremia HTN (hypertension) CAD (coronary artery disease) Last echocardiogram 08/06 with EF of 50% Stents x 3 - last in 02/2023 Major depressive disorder, recurrent severe without psychotic features Chronic pain She reports taking pain medicines and muscle relaxers for a recent back injury; she has chronic left leg pain. Surgical History History of incision and drainage Right breast abscess History of coronary artery stent placement H/O left knee surgery Hx of cholecystectomy History of hysterectomy partial H/O section History of back surgery H/O eye surgery History of carpal tunnel release H/O cardiac radiofrequency ablation Family History Mother Cancer breast Stroke Brother Heart disease Asthma Cancer prostate Sister Heart disease Social History Smoking and tobacco/nicotine status: never used tobacco/nicotine Alcohol intake: never Substance/Drug Use: never Housing: Other Details: Currently with her family Physical Exam 2 Narrative: EXAM NARRATIVE: She is alert and cooperative and appears to be in no acute distress. She talks in complete sentences without dyspnea. Const: COMMON NORMALS: no acute distress and patient oriented x3 GENERAL APPEARANCE: cooperative and comfortable NUTRITIONAL APPEARANCE: obese HENMT: COMMON NORMALS: normocephalic, atraumatic, Normal nasal mucous membranes and turbinates present and moist oral mucous membranes HEAD & SCALP: normocephalic and atraumatic NOSE: Normal nasal mucous membranes and turbinates present Eye: COMMON NORMALS: Equal, round and reactive pupils present, EOMs intact bilaterally and conjunctivae normal CONJUNCTIVA: Yes conjunctivae normal P UPIL: Yes Equal, round and reactive pupils present Neck/C-Spine: COMMON NORMALS: full ROM, no lymphadenopathy, no meningeal signs, no JVD and No carotid bruits Chest: COMMONS NORMALS: normal inspection of the chest and normal palpation of entire chest wall Resp: COMMON NORMALS: normal respiratory effort, No retractions, No use of accessory muscles and clear to auscultation bilaterally AUSCULTATION: clear to auscultation bilaterally and diminished lung sounds Cardio: COMMON NORMALS: no JVD, No murmurs present (Cardio) and Peripheral pulses 2+ throughout RHYTHM: abnormal rhythm regularly irregular P ERIPHERAL PULSES: Peripheral pulses 2+ throughout GI: COMMON NORMALS: Soft to palpation and non-tender INSPECTION: Yes central obesity PALPATION: Yes Soft to palpation OTHER: Suprapubic fullness. : COMMON NORMALS: Yes no CVA tenderness BLADDER/KIDNEY EXAM: Yes no CVA tenderness Back/Pelvis: COMMON NORMALS: no CVA tenderness, thoracic and lumbar spine normal to inspection, no thoracic nor lumbar tenderness, thoraco-lumbar ROM normal and straight leg raise negative bilaterally Extremity: COMMON NORMALS: normal to inspection, full ROM, capillary refill normal, no clubbing, cyanosis or edema, no calf tenderness and no pedal edema Neuro: COMMON NORMALS: patient oriented x3, moves all extremities, no focal motor deficits and no sensory deficits noted MENINGEAL SIGNS: Yes no meningeal signs Psych: COMMON NORMALS: mental status grossly normal Skin: COMMON NORMALS: no rashes or lesions noted, no wounds and turgor normal GENERAL SKIN EXAM: no rashes or lesions noted and turgor normal Course 2 Reevaluation(s): Reevaluation #1: Bladder scan revealed approximately 200 mL of urine in her bladder. Time: 15:56 Reevaluation #2: After receiving the Lasix the patient has not urinated and really has no urge to urinate. A repeat bladder scan revealed greater than 600 mL in her bladder. Plan will be to place a Esposito catheter. Is unclear why she is having urinary retention other than perhaps from diabetic neurogenic bladder. She has no other symptoms that suggest a cord compression syndrome. Will going order a CT of the abdomen just to ensure there is no other pathology that could be contributing to her urinary retention. This case will be checked out to the overnight physician for final disposition. Time: 17:41 Vital Signs: Vital signs: Vital Signs Temperature 97.8 F 08/15/23 13:51 Pulse Rate 101 H 08/15/23 20:44 Respiratory Rate 12 08/15/23 20:44 Blood Pressure 158/82 08/15/23 20:44 Pulse Oximetry 97 08/15/23 20:44 Oxygen Delivery Me thod Nasal Cannula 08/15/23 13:51 Oxygen Flow Rate 3 08/15/23 13:51 MDM - SOB/Dyspnea Medical Decision Making This patient return to the emergency department because she felt like that she was not getting out of all her fluid from her Lasix. She had previously been seen in the emergency department here and given a dose of Lasix and had a initial response but states that since that initial response she has not felt like she has been producing much urine. She denies any fevers or chills. She states she is more short of breath at times and has been wearing her oxygen more but denies any chest pain. Clinical examination was unrevealing for any significant finding other than some suprapubic fullness to palpation. Workup was initiated to ensure no worsening of CHF and no other significant pathology. Subsequently was found that she had increased bladder capacity with retained urine after Lasix and a Esposito catheter was placed and additional workup ensued. Lab Data 08/15/23 14:38 08/15/23 14:38 Labs/Radiology: Radiology Impressions Abdomen/Pelvis CT 08/15/23 18:34 IMPRESSION: 1. Perinephric edema bilaterally likely reflecting renal sufficiency, please correlate for pyelonephritis. 2. Esposito catheter in the urinary bladder with air presumed iatrogenic. 3. Small umbilical hernia containing omentum without bowel. 4. Coronary artery atherosclerotic calcifications. 5. Cholecystectomy. Laboratory Results WBC 10.67 10^3/uL (3.29-11.43) 08/15/23 14:38 RBC 5.71 10^6/uL (3.85-5.65) H 08/15/23 14:38 Hgb 16.50 g/dL (11.27-16.99) 08/15/23 14:38 Hct 50.3 % (36-47) H 08/15/23 14:38 MCV 88.1 fl (85-98) 08/15/23 14:38 MCH 28.9 pg (27-33) 08/15/23 14:38 MCHC 32.8 g/dL (30-55) 08/15/23 14:38 RDW 16.0 % (12.1-15.1) H 08/15/23 14:38 Plt Count 287 10^3/cmm (157-399) 08/15/23 14:38 MPV 10.3 fL (7.4-10.4) 08/15/23 14:38 Neut % (Auto) 74.8 % 08/15/23 14:38 Lymph % (Auto) 14.5 % 08/15/23 14:38 Harlan % (Auto) 7.3 % 08/15/23 14:38 Eos % (Auto) 2.2 % 08/15/23 14:38 Baso % (Auto) 0.6 % 08/15/23 14:38 Neut # (Auto) 7.98 10^3/uL (1.8-7.7) H 08/15/23 14:38 Lymph # (Auto) 1.6 10^3/uL (0.8-4.8) 08/15/23 14:38 Harlan # (Auto) 0.8 10^3/uL (0.2-0.9) 08/15/23 14:38 Eos # (Auto) 0.2 10^3/uL (0.0-0.8) 08/15/23 14:38 Baso # (Auto) 0.1 10^3/uL (0.0-0.1) 08/15/23 14:38 Nucleated RBC % (auto) 0 % 08/15/23 14:38 Nucleated RBCs # 0.0 /100WBC 08/15/23 14:38 PT 14.70 SECONDS (12.1-14.9) 08/15/23 14:38 INR 1.12 (0.8-1.2) 08/15/23 14:38 Sodium 139 mmol/L (136-145) 08/15/23 14:38 Potassium 3.5 mmol/L (3.5-5.1) 08/15/23 14:38 Chloride 94 mmol/L (98-107) L 08/15/23 14:38 Carbon Dioxide 33 mmol/L (22-29) H 08/15/23 14:38 Anion Gap 15.5 (5-19) 08/15/23 14:38 BUN 37 mg/dL (8-23) H 08/15/23 14:38 Creatinine 1.4 mg/dL (0.5-0.9) H 08/15/23 14:38 GFR Calculation 37.4 mL/min (90-130) L 08/15/23 14:38 Glucose 318 mg/dL (65-115) H 08/15/23 14:38 Calculated Osmolality 309 mOsm/kg (285-295) H 08/15/23 14:38 Calcium 9.6 mg/dL (8.5-10.5) 08/15/23 14:38 Total Bilirubin 0.3 mg/dL (0.15-1.2) 08/15/23 14:38 AST 14 U/L (0-32) 08/15/23 14:38 ALT 19 U/L (0-33) 08/15/23 14:38 Alkaline Phosphatase 101 U/L (35-105) 08/15/23 14:38 NT-Pro-B Natriuret Pep 683 pg/mL (0-125) H 08/15/23 14:38 Total Protein 6.3 g/dL (6.6-8.7) L 08/15/23 14:38 Albumin 3.7 g/dL (3.5-5.2) 08/15/23 14:38 Globulin 2.6 g/dL (1.3-4.6) 08/15/23 14:38 Discharge Plan Discharge Patient Disposition: Home Clinical Impression: Acute urinary retention Acute on chronic congestive heart failure Qualifiers: Heart failure type: unspecified Qualified Code(s): I50.9 - Heart failure, unspecified Condition: Stable Prescriptions: No Action albuterol sulfate [ProAir HFA] 90 mcg/actuation HFA aerosol inhaler 2 puff INHALATION Q6H PRN (Reason: Shortness Of Breath) ipratropium-albuterol 0.5 mg-3 mg(2.5 mg base)/3 mL solution for nebulization 3 ml inhalation Q6H PRN (Reason: shortness of breath or wheezing) Qty: 180 3RF (DME) [employer] Enzymese 14 Day Sensor Kit See Rx Instructions .Route Qty: 1 12RF Rx Instructions: As directed ketoconazole 2 % cream 1 applic topical BID Qty: 30 3RF Rx Instructions: Apply to affected areas in skin folds X3 weeks then PRN for flares. miconazole nitrate [Antifungal (miconazole)] 2 % powder 1 applic topical DAILY Qty: 85 3RF Rx Instructions: Apply daily to affected areas and pillow-case. triamcinolone acetonide 0.1 % ointment 1 applic topical BID Qty: 454 2RF Rx Instructions: apply to affected area no more than 2 weeks per month. not for face clobetasol 0.05 % solution 1 applic topical BID 14 Days Qty: 50 3RF Rx Instructions: Apply a few drops to itchy areas on scalp as needed. ammonium lactate 12 % lotion 1 applic topical BID PRN (Reason: stucco keratosis) Qty: 225 2RF Rx Instructions: Apply to dry areas of skin 1-2 times a day. (DME) FreeStyle Lou 14 Day Sensor Kit See Rx Instructions .Route Qty: 1 0RF Rx Instructions: As directed sulfamethoxazole-trimethoprim [Bactrim DS] 800-160 mg tablet 1 tab PO BID Qty: 14 0RF (DME) FreeStyle Lou 14 Day Sensor Kit See Rx Instructions .Route Qty: 2 11RF Rx Instructions: As directed nitroglycerin [Nitrostat] 0.4 mg tablet, sublingual 0.4 mg SUBLINGUAL Q5M PRN (Reason: Chest Pain) Qty: 30 6RF Rx Instructions: do not exceed 3 doses per episode furosemide 40 mg tablet See Rx Instructions PO TID Qty: 270 6RF Rx Instructions: orally three times daily; Take 120mg orally twice a day and take a 3rd dose if increasing weight mupirocin 2 % ointment 1 applic topical TID Qty: 22 0RF cyanocobalamin (vitamin B-12) [Vitamin B-12] 1,000 mcg tablet 1,000 mcg PO DAILY Qty: 30 6RF ondansetron HCl 4 mg tablet 4 mg PO Q8H PRN (Reason: nausea and vomiting) Qty: 30 3RF allopurinol 300 mg tablet 300 mg PO DAILY Qty: 90 3RF apixaban 5 mg tablet 5 mg PO BID Qty: 180 3RF diltiazem HCl 120 mg capsule,extended release 24hr 120 mg PO DAILY Qty: 90 3RF levothyroxine 50 mcg tablet 50 mcg PO DAILY Qty: 90 3RF potassium chloride 20 mEq tablet,ER particles/crystals 20 meq PO BID Qty: 180 3RF simvastatin 40 mg tablet 40 mg PO QPM Qty: 90 3RF Trulicity 0.75 mg/0.5 mL pen injector 0.75 mg SUBCUT Q7D Qty: 2 6RF Rx Instructions: on Sunday Lantus U-100 Insulin 100 unit/mL solution 90 unit SUBCUT BID Qty: 80 6RF clopidogrel 75 mg tablet 75 mg PO DAILY Qty: 90 3RF pregabalin 50 mg capsule 50 mg PO BID Qty: 60 5RF (DME) FreeStyle Lou 14 Day Isabela Misc See Rx Instructions .Route Qty: 1 12RF Rx Instructions: As directed metoprolol tartrate 100 mg tablet 100 mg PO BID Qty: 60 6RF (DME) insulin syringe-needle U-100 [BD Insulin Syringe] 1 mL 29 gauge x 1/2 syringe See Rx Instructions .Route Qty: 100 6RF Rx Instructions: As directed to inject insulin 2-3x/day lorazepam 1 mg tablet 1 mg PO BID PRN (Reason: anxiety) Qty: 60 2RF Trintellix 10 mg tablet 10 mg PO DAILY Qty: 30 1RF Rx Instructions: Take one tablet daily buspirone 10 mg tablet 10 mg PO TID Qty: 90 1RF Rx Instructions: Take one tablet morning, afternoon, and evening acetaminophen 500 mg Tablet 1,000 mg PO Q6H PRN (Reason: Pain) hydrocodone-acetaminophen 5-325 mg tablet 1 tab PO Q6H PRN (Reason: pain (scale score 7-10)) Qty: 10 0RF ketoconazole 2 % shampoo 1 applic topical Q3D Rx Instructions: Lather into scalp 2-3 times weekly. Allow to sit on scalp 5 minutes before rinsing. metolazone 10 mg tablet 10 mg PO DAILY Qty: 5 0RF Discharge Orders: Discharge ED (Routine); Ordered 08/15/23 Ordered By: Jose Pringle Referrals: Farhat Acosta MD [Primary Care Provider] - 1 week Patient Instructions: Congestive Heart Failure, Acute Urinary Retention in Women (ED) Activity Restrictions/Additional Instructions: Your lab work for your congestive heart failure has actually improved since the previous visit. Esposito catheter was placed which showed he had significant urinary retention. This means you are unable to fully empty her bladder. With a Esposito catheter in place this should help you diurese off excess fluid. Please follow-up with your family practice physician within the next 3 to 4 days for reassessment and possible catheter removal. Coding Level of Care Code ED Peanut Butter Maker for Chg Fwd Documented by User: Jose Pringel DO 08/16/23 00:30 HPI - SOB/Dyspnea 2 General: Chief Complaint: Shortness of Breath/Dyspnea Stated Complaint: sent by , fluid build up, sob Time Seen by Provider: 08/15/23 14:47 [facility] ED 2 PFSH: Medical History Type 2 diabetes mellitus MRSA (methicillin resistant staph aureus) culture positive Influenza A Community acquired pneumonia Vitamin B12 deficiency Diabetes type 2, uncontrolled Psychiatric care Polypharmacy Gout Hyperlipidemia Hypothyroidism Fibromyalgia Depression CKD (chronic kidney disease) Chronic respiratory failure Amiodarone pulmonary toxicity Atrial fibrillation Hypercholesteremia HTN (hypertension) CAD (coronary artery disease) Last echocardiogram 08/06 with EF of 50% Stents x 3 - last in 02/2023 Major depressive disorder, recurrent severe without psychotic features Chronic pain She reports taking pain medicines and muscle relaxers for a recent back injury; she has chronic left leg pain. Surgical History History of incision and drainage Right breast abscess History of coronary artery stent placement H/O left knee surgery Hx of cholecystectomy History of hysterectomy partial H/O section History of back surgery H/O eye surgery History of carpal tunnel release H/O cardiac radiofrequency ablation Family History Mother Cancer breast Stroke Brother Heart disease Asthma Cancer prostate Sister Heart disease Social History Smoking and tobacco/nicotine status: never used tobacco/nicotine Alcohol intake: never Substance/Drug Use: never Housing: Other Details: Currently with her family Course 2 Vital Signs: Vital signs: Vital Signs Temperature 97.8 F 08/15/23 13:51 Pulse Rate 101 H 08/15/23 20:44 Respiratory Rate 12 08/15/23 20:44 Blood Pressure 158/82 08/15/23 20:44 Pulse Oximetry 97 08/15/23 20:44 Oxygen Delivery Me thod Nasal Cannula 08/15/23 13:51 Oxygen Flow Rate 3 08/15/23 13:51 MDM - SOB/Dyspnea Medical Decision Making This patient return to the emergency department because she felt like that she was not getting out of all her fluid from her Lasix. She had previously been seen in the emergency department here and given a dose of Lasix and had a initial response but states that since that initial response she has not felt like she has been producing much urine. She denies any fevers or chills. She states she is more short of breath at times and has been wearing her oxygen more but denies any chest pain. Clinical examination was unrevealing for any significant finding other than some suprapubic fullness to palpation. Workup was initiated to ensure no worsening of CHF and no other significant pathology. Subsequently was found that she had increased bladder capacity with retained urine after Lasix and a Esposito catheter was placed and additional workup ensued. Care was handed off at shift change. CT scan of the abdomen pelvis was obtained secondary to urinary retention. It was essentially benign findings. Patient be discharged home with Esposito catheter in place and should follow-up with PCP for removal. Lab Data 08/15/23 14:38 08/15/23 14:38 Labs/Radiology: Radiology Impressions Abdomen/Pelvis CT 08/15/23 18:34 IMPRESSION: 1. Perinephric edema bilaterally likely reflecting renal sufficiency, please correlate for pyelonephritis. 2. Esposito catheter in the urinary bladder with air presumed iatrogenic. 3. Small umbilical hernia containing omentum without bowel. 4. Coronary artery atherosclerotic calcifications. 5. Cholecystectomy. Laboratory Results WBC 10.67 10^3/uL (3.29-11.43) 08/15/23 14:38 RBC 5.71 10^6/uL (3.85-5.65) H 08/15/23 14:38 Hgb 16.50 g/dL (11.27-16.99) 08/15/23 14:38 Hct 50.3 % (36-47) H 08/15/23 14:38 MCV 88.1 fl (85-98) 08/15/23 14:38 MCH 28.9 pg (27-33) 08/15/23 14:38 MCHC 32.8 g/dL (30-55) 08/15/23 14:38 RDW 16.0 % (12.1-15.1) H 08/15/23 14:38 Plt Count 287 10^3/cmm (157-399) 08/15/23 14:38 MPV 10.3 fL (7.4-10.4) 08/15/23 14:38 Neut % (Auto) 74.8 % 08/15/23 14:38 Lymph % (Auto) 14.5 % 08/15/23 14:38 Harlan % (Auto) 7.3 % 08/15/23 14:38 Eos % (Auto) 2.2 % 08/15/23 14:38 Baso % (Auto) 0.6 % 08/15/23 14:38 Neut # (Auto) 7.98 10^3/uL (1.8-7.7) H 08/15/23 14:38 Lymph # (Auto) 1.6 10^3/uL (0.8-4.8) 08/15/23 14:38 Harlan # (Auto) 0.8 10^3/uL (0.2-0.9) 08/15/23 14:38 Eos # (Auto) 0.2 10^3/uL (0.0-0.8) 08/15/23 14:38 Baso # (Auto) 0.1 10^3/uL (0.0-0.1) 08/15/23 14:38 Nucleated RBC % (auto) 0 % 08/15/23 14:38 Nucleated RBCs # 0.0 /100WBC 08/15/23 14:38 PT 14.70 SECONDS (12.1-14.9) 08/15/23 14:38 INR 1.12 (0.8-1.2) 08/15/23 14:38 Sodium 139 mmol/L (136-145) 08/15/23 14:38 Potassium 3.5 mmol/L (3.5-5.1) 08/15/23 14:38 Chloride 94 mmol/L (98-107) L 08/15/23 14:38 Carbon Dioxide 33 mmol/L (22-29) H 08/15/23 14:38 Anion Gap 15.5 (5-19) 08/15/23 14:38 BUN 37 mg/dL (8-23) H 08/15/23 14:38 Creatinine 1.4 mg/dL (0.5-0.9) H 08/15/23 14:38 GFR Calculation 37.4 mL/min (90-130) L 08/15/23 14:38 Glucose 318 mg/dL (65-115) H 08/15/23 14:38 Calculated Osmolality 309 mOsm/kg (285-295) H 08/15/23 14:38 Calcium 9.6 mg/dL (8.5-10.5) 08/15/23 14:38 Total Bilirubin 0.3 mg/dL (0.15-1.2) 08/15/23 14:38 AST 14 U/L (0-32) 08/15/23 14:38 ALT 19 U/L (0-33) 08/15/23 14:38 Alkaline Phosphatase 101 U/L (35-105) 08/15/23 14:38 NT-Pro-B Natriuret Pep 683 pg/mL (0-125) H 08/15/23 14:38 Total Protein 6.3 g/dL (6.6-8.7) L 08/15/23 14:38 Albumin 3.7 g/dL (3.5-5.2) 08/15/23 14:38 Globulin 2.6 g/dL (1.3-4.6) 08/15/23 14:38 All radiology interpretation(s) finalized by discharge Discharge Plan Discharge Patient Disposition: Home Clinical Impression: Acute urinary retention Acute on chronic congestive heart failure Qualifiers: Heart failure type: unspecified Qualified Code(s): I50.9 - Heart failure, unspecified Condition: Stable Prescriptions: No Action albuterol sulfate [ProAir HFA] 90 mcg/actuation HFA aerosol inhaler 2 puff INHALATION Q6H PRN (Reason: Shortness Of Breath) ipratropium-albuterol 0.5 mg-3 mg(2.5 mg base)/3 mL solution for nebulization 3 ml inhalation Q6H PRN (Reason: shortness of breath or wheezing) Qty: 180 3RF (DME) [employer] En[employer]ese 14 Day Sensor Kit See Rx Instructions .Route Qty: 1 12RF Rx Instructions: As directed ketoconazole 2 % cream 1 applic topical BID Qty: 30 3RF Rx Instructions: Apply to affected areas in skin folds X3 weeks then PRN for flares. miconazole nitrate [Antifungal (miconazole)] 2 % powder 1 applic topical DAILY Qty: 85 3RF Rx Instructions: Apply daily to affected areas and pillow-case. triamcinolone acetonide 0.1 % ointment 1 applic topical BID Qty: 454 2RF Rx Instructions: apply to affected area no more than 2 weeks per month. not for face clobetasol 0.05 % solution 1 applic topical BID 14 Days Qty: 50 3RF Rx Instructions: Apply a few drops to itchy areas on scalp as needed. ammonium lactate 12 % lotion 1 applic topical BID PRN (Reason: stucco keratosis) Qty: 225 2RF Rx Instructions: Apply to dry areas of skin 1-2 times a day. (DME) FreeStyle Lou 14 Day Sensor Kit See Rx Instructions .Route Qty: 1 0RF Rx Instructions: As directed sulfamethoxazole-trimethoprim [Bactrim DS] 800-160 mg tablet 1 tab PO BID Qty: 14 0RF (DME) FreeStyle Lou 14 Day Sensor Kit See Rx Instructions .Route Qty: 2 11RF Rx Instructions: As directed nitroglycerin [Nitrostat] 0.4 mg tablet, sublingual 0.4 mg SUBLINGUAL Q5M PRN (Reason: Chest Pain) Qty: 30 6RF Rx Instructions: do not exceed 3 doses per episode furosemide 40 mg tablet See Rx Instructions PO TID Qty: 270 6RF Rx Instructions: orally three times daily; Take 120mg orally twice a day and take a 3rd dose if increasing weight mupirocin 2 % ointment 1 applic topical TID Qty: 22 0RF cyanocobalamin (vitamin B-12) [Vitamin B-12] 1,000 mcg tablet 1,000 mcg PO DAILY Qty: 30 6RF ondansetron HCl 4 mg tablet 4 mg PO Q8H PRN (Reason: nausea and vomiting) Qty: 30 3RF allopurinol 300 mg tablet 300 mg PO DAILY Qty: 90 3RF apixaban 5 mg tablet 5 mg PO BID Qty: 180 3RF diltiazem HCl 120 mg capsule,extended release 24hr 120 mg PO DAILY Qty: 90 3RF levothyroxine 50 mcg tablet 50 mcg PO DAILY Qty: 90 3RF potassium chloride 20 mEq tablet,ER particles/crystals 20 meq PO BID Qty: 180 3RF simvastatin 40 mg tablet 40 mg PO QPM Qty: 90 3RF Trulicity 0.75 mg/0.5 mL pen injector 0.75 mg SUBCUT Q7D Qty: 2 6RF Rx Instructions: on Sunday Lantus U-100 Insulin 100 unit/mL solution 90 unit SUBCUT BID Qty: 80 6RF clopidogrel 75 mg tablet 75 mg PO DAILY Qty: 90 3RF pregabalin 50 mg capsule 50 mg PO BID Qty: 60 5RF (DME) FreeStyle Lou 14 Day Isabela Misc See Rx Instructions .Route Qty: 1 12RF Rx Instructions: As directed metoprolol tartrate 100 mg tablet 100 mg PO BID Qty: 60 6RF (DME) insulin syringe-needle U-100 [BD Insulin Syringe] 1 mL 29 gauge x 1/2 syringe See Rx Instructions .Route Qty: 100 6RF Rx Instructions: As directed to inject insulin 2-3x/day lorazepam 1 mg tablet 1 mg PO BID PRN (Reason: anxiety) Qty: 60 2RF Trintellix 10 mg tablet 10 mg PO DAILY Qty: 30 1RF Rx Instructions: Take one tablet daily buspirone 10 mg tablet 10 mg PO TID Qty: 90 1RF Rx Instructions: Take one tablet morning, afternoon, and evening acetaminophen 500 mg Tablet 1,000 mg PO Q6H PRN (Reason: Pain) hydrocodone-acetaminophen 5-325 mg tablet 1 tab PO Q6H PRN (Reason: pain (scale score 7-10)) Qty: 10 0RF ketoconazole 2 % shampoo 1 applic topical Q3D Rx Instructions: Lather into scalp 2-3 times weekly. Allow to sit on scalp 5 minutes before rinsing. metolazone 10 mg tablet 10 mg PO DAILY Qty: 5 0RF Discharge Orders: Discharge ED (Routine); Ordered 08/15/23 Ordered By: Jose Pringle Referrals: Farhat Acosta MD [Primary Care Provider] - 1 week Patient Instructions: Congestive Heart Failure, Acute Urinary Retention in Women (ED) Activity Restrictions/Additional Instructions: Your lab work for your congestive heart failure has actually improved since the previous visit. Esposito catheter was placed which showed he had significant urinary retention. This means you are unable to fully empty her bladder. With a Esposito catheter in place this should help you diurese off excess fluid. Please follow-up with your family practice physician within the next 3 to 4 days for reassessment and possible catheter removal. Coding Level of Care Code ED Peanut Butter Maker for Gerson Morgan
[2023-08-15 15:25] LABS: Alanine Aminotransferase 19 U/L (0-33); Albumin Level 3.7 g/dL (3.5-5.2); Alkaline Phosphatase 101 U/L (35-105); Anion Gap 15.5 (5-19); Aspartate Amino Transferase 14 U/L (0-32); Blood Urea Nitrogen 37 mg/dL (8-23); Calcium 9.6 mg/dL (8.5-10.5); Carbon Dioxide 33 mmol/L (22-29); Chloride 94 mmol/L (98-107); Creatinine Clr Calc Pharmacy 54.1222; Globulin 2.6 g/dL (1.3-4.6); Glomerular Filtration Rate 37.4 mL/min (90-130); Glucose 318 mg/dL (65-115); NT Pro B Type Natriuretic Pept 683 pg/mL (0-125); Osmolality Calculated 309 mOsm/kg (285-295); Potassium 3.5 mmol/L (3.5-5.1); Sodium 139 mmol/L (136-145); Total Bilirubin 0.3 mg/dL (0.15-1.2); Total Protein 6.3 g/dL (6.6-8.7)
[2023-08-15] MEDS: FUROsemide 10 mg/mL SDV 4mL 40 MG IVP (16:08)
--- NOTE | 2023-08-15 18:34 | CTR_ITS ---
PROCEDURE INFORMATION: Exam: CT Abdomen And Pelvis Without Contrast Exam date and time: 08/15/2023 7:02 PM Age: 67 years old Clinical indication: Other: Urinary retention TECHNIQUE: Imaging protocol: Computed tomography of the abdomen and pelvis without contrast. Radiation optimization: All CT scans at this facility use at least one of these dose optimization techniques: automated exposure control; mA and/or kV adjustment per patient size (includes targeted exams where dose is matched to clinical indication); or iterative reconstruction. COMPARISON: CT abdomen pelvis con [id number] 07/29/2022 10:52 AM RADIATION DOSE METRICS: Total DLP (mGy-cm): 1232 FINDINGS: Coronary arteries: Coronary artery atherosclerotic calcifications. Liver: Normal. No mass. Gallbladder and bile ducts: Cholecystectomy. Pancreas: Normal. No ductal dilation. Spleen: Normal. No splenomegaly. Adrenal glands: Normal. No mass. Kidneys and ureters: Perinephric edema bilaterally likely reflecting renal sufficiency, please correlate for pyelonephritis. Stomach and bowel: Unremarkable. No obstruction. No mucosal thickening. Appendix: No evidence of appendicitis. Intraperitoneal space: Unremarkable. No free air. No significant fluid collection. Vasculature: Unremarkable. No abdominal aortic aneurysm. Lymph nodes: Unremarkable. No enlarged lymph nodes. Urinary bladder: Esposito catheter in the urinary bladder with air presumed iatrogenic. Reproductive: Unremarkable as visualized. Bones/joints: Unremarkable. No acute fracture. Soft tissues: Small umbilical hernia containing omentum without bowel. CT/CT abdomen pelvis con [id number] IMPRESSION: 1. Perinephric edema bilaterally likely reflecting renal sufficiency, please correlate for pyelonephritis. 2. Esposito catheter in the urinary bladder with air presumed iatrogenic. 3. Small umbilical hernia containing omentum without bowel. 4. Coronary artery atherosclerotic calcifications. 5. Cholecystectomy.
--- NOTE | 2023-08-15 20:47 | PC.NURSE ---
this RN inserted a shipley ordered by Dr. Rico and applied a leg bag prior to discharge by Dr. Pringle.
== END 2023-08-15 20:46 | disposition home or self-care (01) ==
PROVIDERS: Emergency Medicine; Emergency Provider Emergency Medicine; PCP Family Medicine
DX: R33.9 Retention of urine, unspecified (principal); I11.0 Hypertensive heart disease with heart failure; I50.9 Heart failure, unspecified; Z79.85 Long-term (current) use of injectable non-insulin antidiabetic drugs; Z79.02 Long term (current) use of antithrombotics/antiplatelets; Z79.4 Long term (current) use of insulin; E11.22 Type 2 diabetes mellitus with diabetic chronic kidney disease; I12.9 Hypertensive chronic kidney disease with stage 1 through stage 4 chronic kidney disease, or unspecified chronic kidney disease; N18.9 Chronic kidney disease, unspecified; E78.5 Hyperlipidemia, unspecified; I25.10 Atherosclerotic heart disease of native coronary artery without angina pectoris
CPT/HCPCS: 36415; 71045; 74176; 80053; 83880; 85025; 85610; 93005; 96374; 99285; J1940

== ENCOUNTER 2023-08-23 10:55 | Outpatient (CLI) | payer MEDICARE, MEDICAID, SELFPAY ==
--- NOTE | 2023-08-23 11:30 | US_ITS ---
WS: [id number] RENAL ULTRASOUND URINARY BLADDER ULTRASOUND HISTORY: Prior urinary retention Technically difficult ultrasound. COMPARISON: 08/10/2018 TECHNIQUE: 2-D and color Doppler imaging of the kidney submitted. Right kidney: 10.2 cm x 5.3 cm x 4.9 cm. Normal echogenicity with no hydronephrosis or mass. Left kidney: 12.0 cm x 5.1 cm x 5.7 cm. Limited visualization of the kidney. No hydronephrosis and no mass identified. Aorta: Not visualized. Urinary Bladder: Prevoid volume of 295 mL. No post void residual. No intraluminal filling defect. IMPRESSION: 1. No hydronephrosis. 2. Technically limited evaluation of the LEFT kidney. No hydronephrosis identified and no mass. 3. No post void residual in the urinary bladder.
== END 2023-08-23 10:56 | disposition home or self-care (01) ==
LOC: RAD 10:56
PROVIDERS: PCP Family Medicine; Visit Provider Family Medicine
DX: R33.9 Retention of urine, unspecified (principal)
CPT/HCPCS: 76770; 76857

== ENCOUNTER → 2023-10-11 13:33 | Outpatient (BNVA) | payer MEDICARE, OTHER, SELFPAY | PROVIDERS: PCP Family Medicine; Visit Provider Family Medicine | DX: Z51.81 Encounter for therapeutic drug level monitoring (principal); E03.9 Hypothyroidism, unspecified; E11.9 Type 2 diabetes mellitus without complications; E55.9 Vitamin D deficiency, unspecified | CPT/HCPCS: 80053; 82306; 83036; 84439; 84443; 85025 ==

== ENCOUNTER → 2023-11-22 16:21 | Outpatient (BNVA) | payer MEDICARE, SELFPAY | PROVIDERS: PCP Family Medicine; Visit Provider Internal Medicine Cardiovascular Disease | DX: R07.9 Chest pain, unspecified (principal) | CPT/HCPCS: 93005; 99215 ==

== ENCOUNTER 2023-12-05 10:22 | Inpatient (IN) | payer MEDICARE, MEDICAID, SELFPAY ==
--- NOTE | 2023-12-05 10:40 | ECG_ITS ---
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 Measurements Intervals [place] Rate: 85 P: 0 NE: 0 QRS: 17 QRSD: 112 T: 94 QT: 364 QTc: 434 Interpretive Statements ATRIAL FLUTTER/fibrillation WITH ABERRANT CONDUCTION OR VENTRICULAR PREMATURE COMPLEXES INDETERMINATE AXIS LOW QRS VOLTAGE IN PRECORDIAL LEADS [QRS DEFLECTION < 1.0 mV IN CHEST LEADS] MODERATE INTRAVENTRICULAR CONDUCTION DELAY [110+ ms QRS DURATION] NONSPECIFIC ST & T-WAVE ABNORMALITY Compared to ECG 11/22/2023 16:26:45 Ventricular premature complex(es) now present Aberrant conduction of supraventricular beat(s) now present Intraventricular conduction delay now present T-wave abnormality now present Myocardial infarct finding no longer present Electronically Signed On 12-07-2023 13:29:04 CDT by Fabricio Rubi M.D. [id number]
--- NOTE | 2023-12-05 10:41 | XR_ITS ---
WS: [id number] Exam: XR chest 1V portable [id number] Date/Time of Exam: 12/05/2023 10:42 AM Reason For Exam: sob Comparison 08/15/2023. There is coarsening of the interstitial markings throughout both lungs essentially unchanged and like ly chronic in nature. Heart size is normal for technique. No pneumothorax or pleural effusion. Again noted is some widening of the superior mediastinum on the RIGHT unchanged in appearance. Bony structu res are intact. XR/XR chest 1V portable [id number] IMPRESSION: 1. Coarsening of interstitial markings throughout both lungs probably chronic i n nature. No acute process is suspected. 2. Chronic widening of the mediastinum on the RIGHT.
[2023-12-05 10:45] VITALS: BP 145/81; PULSE 87; RESP 18; TEMP 36.6; O2SAT 96
[2023-12-05 11:24] LABS: Basophils # 0.1 10^3/uL (0.0-0.1); Basophils % 0.8 %; Eosinophils # 0.2 10^3/uL (0.0-0.8); Eosinophils % 2.6 %; Hematocrit 48.9 % (36-47); Lymphocytes # 1.4 10^3/uL (0.8-4.8); Lymphocytes % 16.4 %; Mean Corpuscular HGB Conc 30.5 g/dL (30-55); Mean Corpuscular Volume 91.9 fl (85-98); Mean Platelet Volume 10.6 fL (7.4-10.4); Monocytes # 0.5 10^3/uL (0.2-0.9); Monocytes % 6.2 %; Neutrophils % 73.4 %; Nucleated Red Blood Cells % 0 %; Platelet Count 227 10^3/cmm (157-399); Red Blood Count 5.32 10^6/uL (3.85-5.65); Red Cell Distribution Width 16.4 % (12.1-15.1); White Blood Count 8.72 10^3/uL (3.29-11.43)
[2023-12-05 11:30] VITALS: BP 158/91; PULSE 85; RESP 22; O2SAT 96
[2023-12-05 11:35] LABS: INR 1.09 (0.8-1.2)
--- NOTE | 2023-12-05 11:48 | ED_ITS ---
HPI - SOB/Dyspnea 2 General: Chief Complaint: Shortness of Breath/Dyspnea Stated Complaint: swollen, sob Time Seen by Provider: 12/05/23 11:19 Source: patient Mode of arrival: ambulatory Limitations: no limitations History of Present Illness: HPI Narrative: 58-year-old female with a history of CHF states she has had 10 pound water weight gain in the last week increasing shortness of breath typically wears 3 L at home has had to increase it to 4 L has worsening dyspnea with exertion she had some slight chest pains denies any pain currently she had seen her PCP would set her up here today. Denies any cough or fever Associated symptoms: Reports chest pain; Deny abdominal pain, fever(s), nausea or vomiting Review of Systems 2 Const: Denies: fever(s), chills, body aches or change in appetite ENMT: Denies: throat pain or dental pain Card: Reports: chest pain Resp: Reports: dyspnea GI: Denies: abdominal pain, nausea, vomiting or diarrhea : Denies: dysuria Musc: Reports: extremity swelling; Denies: neck pain or back pain Skin/Breast: Denies: rash Neuro: Denies: headache(s) PFSH ED 2 PFSH: Medical History Type 2 diabetes mellitus MRSA (methicillin resistant staph aureus) culture positive Influenza A Community acquired pneumonia Vitamin B12 deficiency Diabetes type 2, uncontrolled Psychiatric care Polypharmacy Gout Hyperlipidemia Hypothyroidism Fibromyalgia Depression CKD (chronic kidney disease) Chronic respiratory failure Amiodarone pulmonary toxicity Atrial fibrillation Hypercholesteremia HTN (hypertension) CAD (coronary artery disease) Last echocardiogram 08/06 with EF of 50% Stents x 3 - last in 02/2023 Major depressive disorder, recurrent severe without psychotic features Chronic pain She reports taking pain medicines and muscle relaxers for a recent back injury; she has chronic left leg pain. Surgical History History of incision and drainage Right breast abscess History of coronary artery stent placement H/O left knee surgery Hx of cholecystectomy History of hysterectomy partial H/O section History of back surgery H/O eye surgery History of carpal tunnel release H/O cardiac radiofrequency ablation Family History Mother Cancer breast Stroke Brother Heart disease Asthma Cancer prostate Sister Heart disease Social History Smoking and tobacco/nicotine status: never used tobacco/nicotine Alcohol intake: never Substance/Drug Use: never Housing: Other Details: Currently with her family Physical Exam 2 Const: COMMON NORMALS: patient oriented x3 HENMT: COMMON NORMALS: normocephalic and atraumatic HEAD & SCALP: n ormocephalic and atraumatic Eye: COMMON NORMALS: Equal, round and reactive pupils present and EOMs intact bilaterally PUPIL: Yes Equal, round and reactive pupils present Neck/C-Spine: COMMON NORMALS: full ROM and supple Chest: COMMONS NORMALS: normal inspection of the chest Resp: COMMON NORMALS: No retractions and No use of accessory muscles Cardio: COMMON NORMALS: regular rate, regular rhythm and No murmurs present (Cardio) RATE: regular rate RHYTHM: regular rhythm GI: COMMON NORMALS: Normal to inspection, nondistended, normoactive bowel sounds present, Soft to palpation, non-tender and no masses PALPATION: Yes Soft to palpation Extremity: COMMON NORMALS: full ROM NARRATIVE EXTREMITY EXAM: 2+ le edema Neuro: COMMON NORMALS: patient oriented x3, moves all extremities and no focal motor deficits Psych: COMMON NORMALS: mental status grossly normal, Normal thought process present and cooperative THOUGHT PROCESS: Normal thought process present Skin: COMMON NORMALS: no rashes or lesions noted and no wounds GENERAL SKIN EXAM: no rashes or lesions noted Course 2 Vital Signs: Vital signs: Vital Signs Temperature 97.9 F 12/05/23 10:45 Pulse Rate 80 12/05/23 14:10 Respiratory Rate 25 H 12/05/23 14:10 Blood Pressure 160/96 12/05/23 14:10 Pulse Oximetry 96 12/05/23 14:10 Oxygen Delivery Me thod Room Air 12/05/23 14:10 Oxygen Flow Rate 4 12/05/23 10:45 MDM - SOB/Dyspnea Medical Decision Making Patient presents here with increased weight gain shortness of breath likely CHF exacerbation she had to turn her oxygen up as well I spoke to the hospitalist will admit for observation for CHF exacerbation Medical Records I reviewed the patient's medical records. Lab Data I reviewed the patient's lab results. 12/05/23 11:17 12/05/23 11:17 Labs/Radiology: Radiology Impressions Chest X-Ray 12/05/23 10:41 IMPRESSION: 1. Coarsening of interstitial markings throughout both lungs probably chronic in nature. No acute process is suspected. 2. Chronic widening of the mediastinum on the RIGHT. Laboratory Results WBC 8.72 10^3/uL (3.29-11.43) 12/05/23 11:17 RBC 5.32 10^6/uL (3.85-5.65) 12/05/23 11:17 Hgb 14.90 g/dL (11.27-16.99) 12/05/23 11:17 Hct 48.9 % (36-47) H 12/05/23 11:17 MCV 91.9 fl (85-98) 12/05/23 11:17 MCH 28.0 pg (27-33) 12/05/23 11:17 MCHC 30.5 g/dL (30-55) 12/05/23 11:17 RDW 16.4 % (12.1-15.1) H 12/05/23 11:17 Plt Count 227 10^3/cmm (157-399) 12/05/23 11:17 MPV 10.6 fL (7.4-10.4) H 12/05/23 11:17 Neut % (Auto) 73.4 % 12/05/23 11:17 Lymph % (Auto) 16.4 % 12/05/23 11:17 [place] % (Auto) 6.2 % 12/05/23 11:17 Eos % (Auto) 2.6 % 12/05/23 11:17 Baso % (Auto) 0.8 % 12/05/23 11:17 Neut # (Auto) 6.40 10^3/uL (1.8-7.7) 12/05/23 11:17 Lymph # (Auto) 1.4 10^3/uL (0.8-4.8) 12/05/23 11:17 [place] # (Auto) 0.5 10^3/uL (0.2-0.9) 12/05/23 11:17 Eos # (Auto) 0.2 10^3/uL (0.0-0.8) 12/05/23 11:17 Baso # (Auto) 0.1 10^3/uL (0.0-0.1) 12/05/23 11:17 Nucleated RBC % (auto) 0 % 12/05/23 11:17 Nucleated RBCs # 0.0 /100WBC 12/05/23 11:17 PT 14.50 SECONDS (12.1-14.9) 12/05/23 11:17 INR 1.09 (0.8-1.2) 12/05/23 11:17 Sodium 141 mmol/L (136-145) 12/05/23 11:17 Potassium 3.8 mmol/L (3.5-5.1) 12/05/23 11:17 Chloride 101 mmol/L (98-107) 12/05/23 11:17 Carbon Dioxide 27 mmol/L (22-29) 12/05/23 11:17 Anion Gap 16.8 (5-19) 12/05/23 11:17 BUN 23 mg/dL (8-23) 12/05/23 11:17 Creatinine 1.2 mg/dL (0.5-0.9) H 12/05/23 11:17 GFR Calculation 44.5 mL/min (90-130) L 12/05/23 11:17 Glucose 286 mg/dL (65-115) H 12/05/23 11:17 Calculated Osmolality 306 mOsm/kg (285-295) H 12/05/23 11:17 Calcium 9.0 mg/dL (8.5-10.5) 12/05/23 11:17 Total Bilirubin 0.3 mg/dL (0.15-1.2) 12/05/23 11:17 AST 17 U/L (0-32) 12/05/23 11:17 ALT 27 U/L (0-33) 12/05/23 11:17 Alkaline Phosphatase 96 U/L (35-105) 12/05/23 11:17 Troponin T Baseline 23 ng/L (0-10) H 12/05/23 11:17 Troponin T 120 Minute 23.79 ng/L (0-10) H 12/05/23 12:59 Delta Troponin T 0.79 ABS# (0-10) 12/05/23 12:59 NT-Pro-B Natriuret Pep 621 pg/mL (0-125) H 12/05/23 11:17 Total Protein 6.5 g/dL (6.6-8.7) L 12/05/23 11:17 Albumin 3.5 g/dL (3.5-5.2) 12/05/23 11:17 Globulin 3.0 g/dL (1.3-4.6) 12/05/23 11:17 All radiology interpretation(s) finalized by discharge EKG Data EKG 1: I personally reviewed and interpreted this EKG as follows: EKG Interpretation Date: 12/05/23 EKG interpretation time: 10:55 Interpretation: afib hr [address] or t wave abnormalities qrs 112 qtc 406 EKG 2: I personally reviewed and interpreted this EKG as follows: EKG Interpretation Date: 12/05/23 EKG interpretation time: 13:12 Interpretation: afib hr [address] elevation qrs 112 qtc 428 Discharge Plan Discharge Patient Disposition: Placed in Observation Clinical Impression: CHF exacerbation Condition: Stable Prescriptions: No Action (DME) FreeStyle Lou 14 Day Sensor Kit See Rx Instructions .Route Qty: 1 12RF Rx Instructions: As directed ketoconazole 2 % cream 1 applic topical BID Qty: 30 3RF Rx Instructions: Apply to affected areas in skin folds X3 weeks then PRN for flares. hydrocodone-acetaminophen 5-325 mg tablet 1 tab PO Q6H PRN (Reason: pain (scale score 7-10)) 15 Days Qty: 30 0RF lorazepam 1 mg tablet 1 mg PO BID PRN (Reason: anxiety) Qty: 60 1RF (DME) Manual wheelchair See Rx Instructions .Route .MEDSUPPLY Qty: 1 0RF Rx Instructions: As directed (DME) FreeStyle Lou 14 Day Sensor Kit See Rx Instructions .Route Qty: 1 0RF Rx Instructions: As directed (DME) FreeStyle Lou 14 Day Sensor Kit See Rx Instructions .Route Qty: 2 11RF Rx Instructions: As directed nitroglycerin [Nitrostat] 0.4 mg tablet, sublingual 0.4 mg SUBLINGUAL Q5M PRN (Reason: Chest Pain) Qty: 30 6RF Rx Instructions: do not exceed 3 doses per episode Ozempic 0.25 mg or 0.5 mg (2 mg/3 mL) pen injector 0.25 mg SUBCUT Q7D Qty: 3 3RF cyanocobalamin (vitamin B-12) [Vitamin B-12] 1,000 mcg tablet 1,000 mcg PO DAILY Qty: 30 6RF ondansetron HCl 4 mg tablet 4 mg PO Q8H PRN (Reason: nausea and vomiting) Qty: 30 3RF Lantus U-100 Insulin 100 unit/mL solution 90 unit SUBCUT BID Qty: 80 6RF clopidogrel 75 mg tablet 75 mg PO DAILY Qty: 90 3RF (DME) FreeStyle Lou 14 Day [place] Misc See Rx Instructions .Route Qty: 1 12RF Rx Instructions: As directed (DME) insulin syringe-needle U-100 [BD Insulin Syringe] 1 mL 29 gauge x 1/2 syringe See Rx Instructions .Route Qty: 100 6RF Rx Instructions: As directed to inject insulin 2-3x/day allopurinol 300 mg tablet 300 mg PO DAILY Qty: 90 3RF apixaban 5 mg tablet 5 mg PO BID Qty: 180 3RF diltiazem HCl 120 mg capsule,extended release 24hr 120 mg PO DAILY Qty: 90 3RF levothyroxine 50 mcg tablet 50 mcg PO DAILY Qty: 90 3RF metoprolol tartrate 100 mg tablet 100 mg PO BID Qty: 180 3RF potassium chloride 20 mEq tablet,ER particles/crystals 20 meq PO BID Qty: 180 3RF cholecalciferol (vitamin D3) 50 mcg (2,000 unit) capsule 50 mcg PO DAILY Qty: 30 6RF pregabalin 50 mg capsule 50 mg PO BID Qty: 60 5RF buspirone 10 mg tablet 10 mg PO TID Qty: 90 1RF Trintellix 10 mg tablet 10 mg PO DAILY Qty: 30 1RF acetaminophen 500 mg Tablet 1,000 mg PO Q6H PRN (Reason: Pain) simvastatin 40 mg tablet 40 mg PO BEDTIME furosemide 40 mg tablet 120 mg PO TID ketoconazole 2 % shampoo 1 applic topical Q3D Rx Instructions: Lather into scalp 2-3 times weekly. Allow to sit on scalp 5 minutes before rinsing. metolazone 10 mg tablet 10 mg PO DAILY Qty: 5 0RF Referrals: Farhat Acosta MD [Primary Care Provider] - Coding Level of Care Code ED Electrophysiologist for Chg Cathy
[2023-12-05 11:52] LABS: Alanine Aminotransferase 27 U/L (0-33); Albumin Level 3.5 g/dL (3.5-5.2); Alkaline Phosphatase 96 U/L (35-105); Anion Gap 16.8 (5-19); Aspartate Amino Transferase 17 U/L (0-32); Blood Urea Nitrogen 23 mg/dL (8-23); Carbon Dioxide 27 mmol/L (22-29); Chloride 101 mmol/L (98-107); Creatinine Clr Calc Pharmacy 65.8139; Glomerular Filtration Rate 44.5 mL/min (90-130); Glucose 286 mg/dL (65-115); NT Pro B Type Natriuretic Pept 621 pg/mL (0-125); Osmolality Calculated 306 mOsm/kg (285-295); Potassium 3.8 mmol/L (3.5-5.1); Sodium 141 mmol/L (136-145); Total Bilirubin 0.3 mg/dL (0.15-1.2); Total Protein 6.5 g/dL (6.6-8.7)
[2023-12-05 12:00] VITALS: PULSE 92; RESP 20; O2SAT 98
[2023-12-05 12:04] LABS: Troponin(5th) Baseline 23 ng/L (0-10)
--- NOTE | 2023-12-05 13:12 | ECG_ITS ---
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 Measurements Intervals [place] Rate: 77 P: 0 NV: 0 QRS: 32 QRSD: 112 T: 60 QT: 396 QTc: 449 Interpretive Statements ATRIAL FLUTTER/fibrillation INDETERMINATE AXIS MODERATE INTRAVENTRICULAR CONDUCTION DELAY [110+ ms QRS DURATION] MODERATE ST DEPRESSION [0.05+ mV ST DEPRESSION] Compared to ECG 12/05/2023 10:53:22 ST (T wave) deviation now present Ventricular premature complex(es) no longer present Aberrant conduction of supraventricular beat(s) no longer present T-wave abnormality no longer present Electronically Signed On 12-07-2023 13:30:38 CDT by Fabricio Rubi M.D. [id number]
[2023-12-05] MEDS: FUROsemide 10 mg/mL SDV 10mL 60 MG IVP ×2 (13:27→21:03)
[2023-12-05 13:36] LABS: Troponin 5 2HR 23.79 ng/L (0-10); Troponin 5 2HR Delta 0.79 ABS# (0-10)
[2023-12-05 14:10] VITALS: BP 160/96; PULSE 80; RESP 25; O2SAT 96
--- NOTE | 2023-12-05 16:34 | P.HP_ITS ---
Providers/Chief Complaint 2 Primary Care Provider: Farhat Acosta MD Chief Complaint: swollen, sob History of Present Illness Shauna Sena is a 68 year old female with a past medical history of diastolic CHF, history of fluid overload, currently on Lasix 120 mg twice daily but due to persistent fluid overload now using 120 mg 3 times daily, in addition also on metolazone 10 mg daily, history of CAD on Plavix, has had 3 stents placed, history of atrial fibrillation on Eliquis, history of type 2 diabetes mellitus on Lantus 90 units twice daily, history of morbid obesity, amiodarone toxicity, hypertension, dyslipidemia, chronically on 3 L, requiring intubation, mechanical ventilation for amiodarone toxicity many years ago, chronic amiodarone related lung damage, who presents [facility] due to increased shortness of breath, bilateral lower extreme edema. Patient tells me that in the last week or so she has gained about 8 pounds, she is developed significant lower extremity edema, increased shortness of breath, she has increased her Lasix to 120 mg 3 times daily however she continues to have episodes of shortness of breath lower extremity edema, she is on metolazone, denies any chest pain, no palpitations, she is on 3 L she remains on 3 L currently, she saw her primary care provider did present shortness of breath suicide to the emergency room for evaluation, in the ER she was given 60 mg of Lasix she is tells me that she has barely urinated much with the Lasix that she was given, but she wants to give it time she does not want a Esposito catheter to be placed, as per her primary care physician's note, she is gained about 20 pounds since August 16, Review of Systems 2 Const: Denies: fever(s) Card: Denies: chest pain Resp: Reports: dyspnea Medications/Allergies Home Medications Medication Instructions Recorded Confirmed Last Taken Type flash glucose sensor (FreeStyle #1 ea 01/27/22 12/05/23 Unknown Rx Lou 14 Day Sensor kit) cyanocobalamin (vitamin B-12) 1,000 mcg PO DAILY #30 tabs 02/05/22 12/05/23 12/05/23 Rx 1,000 mcg tablet (Vitamin B-12) acetaminophen 500 mg tablet 1,000 mg PO Q6H PRN Pain 11/12/05/23 03/05/23 History ondansetron HCl 4 mg tablet 4 mg PO Q8H PRN nausea and 07/28/22 12/05/23 Unknown Rx vomiting #30 tabs flash glucose sensor (FreeStyle #1 ea 08/07/22 12/05/23 Unknown Rx Lou 14 Day Sensor kit) ketoconazole 2 % topical cream 1 applic topical BID #30 grams 09/06/22 12/05/23 Unknown Rx insulin glargine 100 unit/mL 90 unit (0.9 mL) SUBCUT BID #80 mL 01/24/23 12/05/23 12/05/23 Rx subcutaneous solution (Lantus U-100 Insulin) flash glucose sensor (FreeStyle #2 ea 03/27/23 12/05/23 Unknown Rx Lou 14 Day Sensor kit) clopidogrel 75 mg tablet 75 mg PO DAILY #90 tabs 04/02/23 12/05/23 12/05/23 Rx ketoconazole 2 % shampoo 1 applic topical Q3D 04/04/23 12/05/23 Unknown History flash glucose scanning reader #1 ea 05/14/23 12/05/23 Unknown Rx (FreeStyle Lou 14 Day [place]) nitroglycerin 0.4 mg sublingual 0.4 mg sublingual Q5M PRN Chest 05/24/23 12/05/23 Unknown Rx tablet (Nitrostat) Pain #30 tabs insulin syringe-needle U-100 1 mL #100 ea 06/12/23 12/05/23 Unknown Rx 29 gauge x 1/2 (BD Insulin Syringe) metolazone 10 mg tablet 10 mg PO DAILY #5 tabs 08/14/23 12/05/23 12/05/23 Rx hydrocodone 5 mg-acetaminophen 325 1 tab PO Q6H PRN pain (scale score 08/20/23 12/05/23 Unknown Rx mg tablet 7-10) 15 days #30 tabs lorazepam 1 mg tablet 1 mg PO BID PRN anxiety #60 tabs 10/03/23 12/05/23 Unknown Rx semaglutide 0.25 mg or 0.5 mg (2 0.25 mg (0.368 mL) SUBCUT Q7D #3 mL 10/11/23 12/05/23 12/03/23 Rx mg/3 mL) subcutaneous pen injector (Ozempic) allopurinol 300 mg tablet 300 mg PO DAILY #90 tabs 10/22/23 12/05/23 12/05/23 Rx apixaban 5 mg tablet 5 mg PO BID #180 tabs 10/22/23 12/05/23 12/05/23 Rx diltiazem HCl 120 mg 120 mg PO DAILY #90 caps 10/22/23 12/05/23 12/05/23 Rx capsule,extended release 24 hr levothyroxine 50 mcg tablet 50 mcg PO DAILY #90 tabs 10/22/23 12/05/23 12/05/23 Rx metoprolol tartrate 100 mg tablet 100 mg PO BID #180 tabs 10/22/23 12/05/23 12/05/23 Rx potassium chloride 20 mEq 20 meq PO BID #180 tabs 10/22/23 12/05/23 12/05/23 Rx tablet,extended release(part/cryst) cholecalciferol (vitamin D3) 50 50 mcg PO DAILY #30 caps 10/30/23 12/05/23 12/05/23 Rx mcg (2,000 unit) capsule pregabalin 50 mg capsule 50 mg PO BID #60 caps 11/06/23 12/05/23 12/05/23 Rx buspirone 10 mg tablet 10 mg PO TID #90 tabs 11/22/23 12/05/23 12/05/23 Rx vortioxetine 10 mg tablet 10 mg PO DAILY #30 tabs 11/22/23 12/05/23 12/05/23 Rx (Trintellix) Manual wheelchair #1 ea 12/05/23 12/05/23 Unknown Rx furosemide 40 mg tablet 120 mg PO TID 12/05/23 12/05/23 12/05/23 History simvastatin 40 mg tablet 40 mg PO BEDTIME 12/05/23 12/05/23 12/04/23 History Allergies Allergy/AdvReac Type Severity Reaction Status Date / Time morphine Allergy Severe Quit Verified 12/05/23 10:54 breathing amiodarone Allergy ALGY-Anaphy Verified 12/05/23 10:54 laxis shellfish derived AdvReac Severe Hives & Verified 12/05/23 10:54 throat swells meperidine [From Demerol] AdvReac Intermediate Made N & V Verified 12/05/23 10:54 Penicillins AdvReac Intermediate RAsh Verified 12/05/23 10:54 PFSH Acute 2 PFSH: Medical History Type 2 diabetes mellitus MRSA (methicillin resistant staph aureus) culture positive Influenza A Community acquired pneumonia Vitamin B12 deficiency Diabetes type 2, uncontrolled Psychiatric care Polypharmacy Gout Hyperlipidemia Hypothyroidism Fibromyalgia Depression CKD (chronic kidney disease) Chronic respiratory failure Amiodarone pulmonary toxicity Atrial fibrillation Hypercholesteremia HTN (hypertension) CAD (coronary artery disease) Last echocardiogram 08/06 with EF of 50% Stents x 3 - last in 02/2023 Major depressive disorder, recurrent severe without psychotic features Chronic pain She reports taking pain medicines and muscle relaxers for a recent back injury; she has chronic left leg pain. Surgical History History of incision and drainage Right breast abscess History of coronary artery stent placement H/O left knee surgery Hx of cholecystectomy History of hysterectomy partial H/O section History of back surgery H/O eye surgery History of carpal tunnel release H/O cardiac radiofrequency ablation Family History Mother Cancer breast Stroke Brother Heart disease Asthma Cancer prostate Sister Heart disease Social History Smoking and tobacco/nicotine status: never used tobacco/nicotine Alcohol intake: never Substance/Drug Use: never Housing: Other Details: Currently with her family Vitals/I&O/Wt Last Vital Signs Temp 97.9 F 12/05/23 10:45 Pulse 80 12/05/23 14:10 Resp 25 H 12/05/23 14:10 BP 160/96 12/05/23 14:10 Pulse Ox 96 12/05/23 14:10 O2 Del Method Room Air 12/05/23 14:10 O2 Flow Rate 4 12/05/23 10:45 Weight last 48 hrs Weight 139.706 kg Physical Exam 2 Const: COMMON NORMALS: no acute distress and patient oriented x3 HENMT: COMMON NORMALS: normocephalic HEAD & SCALP: normocephalic Eye: COMMON NORMALS: Equal, round and reactive pupils present and EOMs intact bilaterally Neck/C-Spine: COMMON NORMALS: no JVD Lymph: LYMPHATIC: no lymphadenopathy noted Resp: COMMON NORMALS: normal respiratory effort, No retractions and No use of accessory muscles AUSCULTATION: crackles Cardio: COMMON NORMALS: regular rate, regular rhythm, S1 normal heart sound present and S2 normal heart sound present RATE: regular rate RHYTHM: r egular rhythm HEART SOUNDS: S1 normal heart sound present and S2 normal heart sound present GI: COMMON NORMALS: Normal to inspection, nondistended, normoactive bowel sounds present, Soft to palpation and non-tender Extremity: NARRATIVE EXTREMITY EXAM: 3+ pitting edema bilateral lower extremi ties Neuro: COMMON NORMALS: patient oriented x3, CN's II-XII intact bilaterally and moves all extremities Psych: COMMON NORMALS: mental status grossly normal Data 12/05/23 11:17 12/05/23 11:17 A&P Assessment and plan (1) CHF exacerbation: (2) CAD (coronary artery disease): (3) Hyperlipidemia: Qualifiers: Hyperlipidemia type: mixed hyperlipidemia Qualified Code(s): E78.2 - Mixed hyperlipidemia (4) Atrial fibrillation: Qualifiers: Atrial fibrillation type: persistent (not longstanding) Qualified Code(s): I48.19 - Other persistent atrial fibrillation (5) Hypercholesteremia: (6) Type 2 diabetes mellitus: (7) Major depressive disorder, recurrent severe without psychotic features: (8) Generalized anxiety disorder: (9) Atherosclerotic heart disease of [place] coronary artery with unstable angina pectoris: Plan Acute CHF exacerbation, fluid overload, weight gain, 3+ pitting edema lower extremities ? Failure with outpatient diuresis, using Lasix 120 mg 3 times daily with metolazone ? Plan ? Will try Lasix 60 mg every 8 hours -As she tells me that Bumex does not work for her, she has never tried torsemide ? Spironolactone 25 mg daily ? Metolazone 10 mg daily ? Fluid restrictions at 1000 cc next ?monitor urine output, monitor creatinine, monitor clinical progress ? Type 2 diabetes mellitus, continue Lantus 90 units twice daily confirmed this is her dose, low-dose sliding scale ? CAD continue Plavix ? History of atrial fibrillation continue Eliquis, continue metoprolol 100 twice daily ? Hypothyroidism continue levothyroxine ? Full code Lovenox for DVT prophylaxis Attestations 2 Medical Necessity Statement*: Patient requires hospitalization due to acute CHF exacerbation, diastolic, fluid overload, inpatient, greater than 2 midnights Diagnoses CHF exacerbation I50.9 CAD (coronary artery disease) I25.10 Mixed hyperlipidemia E78.2 Hyperlipidemia type: mixed hyperlipidemia Persistent atrial fibrillation I48.19 Atrial fibrillation type: persistent (not longstanding) Hypercholesteremia E78.00 Type 2 diabetes mellitus E11.9 Major depressive disorder, recurrent severe without psychotic features F33.2 Generalized anxiety disorder F41.1 Atherosclerotic heart disease of [place] coronary artery with unstable angina pectoris I25.110
[2023-12-05 17:42] LABS: Troponin 5 6HR 22.68 ng/L (0-10)
[2023-12-05 17:44] LABS: Troponin 5 6HR Delta -0.32 ng/L (0-12)
[2023-12-05] MEDS: insulin glargine 100 units/1 mL 90 UNIT SUBCUT (18:02)
[2023-12-05] MEDS: apixaban 5 mg Tablet PO (18:02)
[2023-12-05] MEDS: metoprolol tartrate 50 mg Tablet 100 MG PO (18:02)
[2023-12-05] MEDS: pregabalin 50 mg Capsule PO (18:02)
[2023-12-05] MEDS: potassium chloride ER 20 mEq Tablet PO (18:02)
[2023-12-05] MEDS: spironolactone 25 mg Tablet PO (18:03)
[2023-12-05 18:13] LABS: Glucose Point of Care 142 mg/dL (70-110)
--- NOTE | 2023-12-05 18:38 | ECG_ITS ---
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 Measurements Intervals [place] Rate: 98 P: 0 [place]: 0 QRS: 53 QRSD: 121 T: 62 QT: 390 QTc: 498 Interpretive Statements ATRIAL FIBRILLATION WITH ABERRANT CONDUCTION OR VENTRICULAR PREMATURE COMPLEXES ABNORMAL RHYTHM ECG Compared to ECG 12/05/2023 13:12:18 Ventricular premature complex(es) now present Aberrant conduction of supraventricular beat(s) now present Atrial flutter no longer present Indeterminate axis no longer present Intraventricular conduction delay no longer present ST (T wave) deviation no longer present Electronically Signed On 12-07-2023 13:57:47 CDT by Fabricio Rubi M.D. [id number]
[2023-12-05] MEDS: BuSPIRONE 10 mg Tablet PO (21:02)
[2023-12-05] MEDS: atorvastatin 40 mg Tablet 20 MG PO (21:02)
[2023-12-05] MEDS: acetaminophen 500 mg Tablet 1000 MG PO (21:02)
[2023-12-05 21:47] LABS: Glucose Point of Care 225 mg/dL (70-110)
[2023-12-05 21:53] VITALS: BP 147/88; PULSE 79; RESP 20; TEMP 36.7; O2SAT 96
[2023-12-06] VITALS: BP 137/80; PULSE 86; RESP 18; TEMP 36.6; O2SAT 96
[2023-12-06 04:00] VITALS: BP 138/81; PULSE 93; RESP 20; TEMP 36.8; O2SAT 95
[2023-12-06] MEDS: acetaminophen 500 mg Tablet 1000 MG PO (04:37)
[2023-12-06] MEDS: FUROsemide 10 mg/mL SDV 10mL 60 MG IVP ×3 (04:38→20:50)
[2023-12-06 04:57] VITALS: BMI 48.3
[2023-12-06 06:24] LABS: Glucose Point of Care 105 mg/dL (70-110)
[2023-12-06 07:24] LABS: Basophils # 0.1 10^3/uL (0.0-0.1); Basophils % 0.7 %; Eosinophils # 0.3 10^3/uL (0.0-0.8); Eosinophils % 3.6 %; Hematocrit 46.1 % (36-47); Lymphocytes # 1.4 10^3/uL (0.8-4.8); Lymphocytes % 16.3 %; Mean Corpuscular HGB Conc 30.8 g/dL (30-55); Mean Corpuscular Hemoglobin 27.6 pg (27-33); Mean Corpuscular Volume 89.7 fl (85-98); Mean Platelet Volume 10.5 fL (7.4-10.4); Monocytes # 0.7 10^3/uL (0.2-0.9); Monocytes % 8.6 %; Neutrophils # 5.91 10^3/uL (1.8-7.7); Neutrophils % 70.2 %; Nucleated Red Blood Cells % 0 %; Platelet Count 235 10^3/cmm (157-399); Red Blood Count 5.14 10^6/uL (3.85-5.65); Red Cell Distribution Width 16.3 % (12.1-15.1); White Blood Count 8.41 10^3/uL (3.29-11.43)
[2023-12-06 07:39] VITALS: BP 143/91; PULSE 95; RESP 16; TEMP 36.7; O2SAT 96
[2023-12-06 07:43] LABS: Anion Gap 11.6 (5-19); Blood Urea Nitrogen 24 mg/dL (8-23); Calcium 9.1 mg/dL (8.5-10.5); Carbon Dioxide 33 mmol/L (22-29); Chloride 106 mmol/L (98-107); Creatinine Clr Calc Pharmacy 67.0813; Glomerular Filtration Rate 44.5 mL/min (90-130); Glucose 102 mg/dL (65-115); NT Pro B Type Natriuretic Pept 624 pg/mL (0-125); Osmolality Calculated 308 mOsm/kg (285-295); Potassium 3.6 mmol/L (3.5-5.1); Sodium 147 mmol/L (136-145)
[2023-12-06 08:00] LABS: Magnesium 2.2 mg/dL (1.7-2.3)
[2023-12-06] MEDS: levothyroxine 50 mcg Tablet PO (08:09)
[2023-12-06] MEDS: dilTIAZem ER (24HR) 120 mg Capsule PO (08:09)
[2023-12-06] MEDS: insulin glargine 100 units/1 mL 90 UNIT SUBCUT ×2 (08:09→17:37)
[2023-12-06] MEDS: cholecalciferol (vitamin D3) 1,000 unit Tablet 2000 UNIT PO (08:09)
[2023-12-06] MEDS: cyanocobalamin 1,000 mcg Tablet 1000 MCG PO (08:09)
[2023-12-06] MEDS: apixaban 5 mg Tablet PO ×2 (08:10→17:37)
[2023-12-06] MEDS: BuSPIRONE 10 mg Tablet PO ×3 (08:10→20:50)
[2023-12-06] MEDS: metOLazone 5 MG Tablet 10 MG PO (08:10)
[2023-12-06] MEDS: potassium chloride ER 20 mEq Tablet PO ×2 (08:10→17:37)
[2023-12-06] MEDS: HYDROcodone-acetaminophen 5-325 mg Tablet 1 TAB PO (08:10)
[2023-12-06] MEDS: metoprolol tartrate 50 mg Tablet 100 MG PO ×2 (08:10→17:37)
[2023-12-06] MEDS: clopidogrel 75 mg Tablet PO (08:10)
[2023-12-06] MEDS: pregabalin 50 mg Capsule PO ×2 (08:10→17:37)
[2023-12-06] MEDS: allopurinol 300 mg Tablet PO (08:10)
[2023-12-06 11:15] VITALS: BP 124/76; PULSE 73; RESP 16; TEMP 36.8; O2SAT 95
[2023-12-06 11:36] LABS: Glucose Point of Care 138 mg/dL (70-110)
--- NOTE | 2023-12-06 13:56 | PM.PN ---
Subjective Subjective: Patient was seen this morning, she is a bit frustrated, as she complains of shortness of breath and persistent lower extremity edema, her diuresis she tells me has been lackluster, denies any lightheadedness, no dizziness, no nausea, no vomiting Vitals/I&O/Wt Last Vital Signs Temp 98.3 F 12/06/23 11:15 Pulse 73 12/06/23 11:15 Resp 16 12/06/23 11:15 BP 124/76 12/06/23 11:15 Pulse Ox 95 12/06/23 11:15 O2 Del Method Nasal Cannula 12/06/23 11:15 O2 Flow Rate 2 12/06/23 11:15 12/05/23 12/06/23 12/06/23 22:59 06:59 14:59 Intake Total 240 / 240 240 / 480 240 / 240 Output Total 300 / 300 650 / 950 1000 / 1000 Balance -60 / -60 -410 / -470 -760 / -760 Weight last 48 hrs Weight 144.242 kg Weight 142.882 kg Weight 139.706 kg Physical Exam Const: COMMON NORMALS: no acute distress and patient oriented x3 Resp: COMMON NORMALS: normal respiratory effort, No retractions and No use of accessory muscles AUSCULTATION: crackles Cardio: COMMON NORMALS: regular rate, regular rhythm, S1 normal heart sound present and S2 normal heart sound present RATE: regular rate RHYTHM: regular rhythm HEART SOUNDS: S1 normal heart sound present and S2 normal heart sound present GI: COMMON NORMALS: Normal to inspection, nondistended, normoactive bowel sounds present and non-tender Extremity: NARRATIVE EXTREMITY EXAM: 2+ pitting edema Neuro: COMMON NORMALS: patient oriented x3 Psych: COMMON NORMALS: mental status grossly normal Data 12/06/23 06:39 12/06/23 06:39 A&P Assessment and plan (1) CHF exacerbation: (2) CAD (coronary artery disease): (3) Hyperlipidemia: Qualifiers: Hyperlipidemia type: mixed hyperlipidemia Qualified Code(s): E78.2 - Mixed hyperlipidemia (4) Atrial fibrillation: Qualifiers: Atrial fibrillation type: persistent (not longstanding) Qualified Code(s): I48.19 - Other persistent atrial fibrillation (5) Hypercholesteremia: (6) Type 2 diabetes mellitus: (7) Major depressive disorder, recurrent severe without psychotic features: (8) Generalized anxiety disorder: (9) Atherosclerotic heart disease of [place] coronary artery with unstable angina pectoris: Plan Acute CHF exacerbation, fluid overload, weight gain, 2+ pitting edema lower extremities ? Failure with outpatient diuresis, using Lasix 120 mg 3 times daily with metolazone ? Plan ? Will try Lasix 60 mg every 8 hours -As she tells me that Bumex does not work for her, she has never tried torsemide ? Spironolactone 25 mg daily ? Metolazone 10 mg daily ? Fluid restrictions at 1000 cc next ?monitor urine output, monitor creatinine, monitor clinical progress ? Type 2 diabetes mellitus, continue Lantus 90 units twice daily confirmed this is her dose, low-dose sliding scale ? CAD continue Plavix ? History of atrial fibrillation continue Eliquis, continue metoprolol 100 twice daily ? Hypothyroidism continue levothyroxine ? Full code Lovenox for DVT prophylaxis Plan for today continue Lasix 60 mg IV every 8 hours with spironolactone with metolazone will give her time, based on clinical progress further recommendations will be given, will consider Lasix drip Attestations Medical Necessity Statement*: Patient is hospitalization for acute CHF exacerbation Diagnoses CHF exacerbation I50.9 CAD (coronary artery disease) I25.10 Mixed hyperlipidemia E78.2 Hyperlipidemia type: mixed hyperlipidemia Persistent atrial fibrillation I48.19 Atrial fibrillation type: persistent (not longstanding) Hypercholesteremia E78.00 Type 2 diabetes mellitus E11.9 Major depressive disorder, recurrent severe without psychotic features F33.2 Generalized anxiety disorder F41.1 Atherosclerotic heart disease of [place] coronary artery with unstable angina pectoris I25.110
[2023-12-06 15:51] VITALS: BP 138/85; PULSE 86; RESP 16; TEMP 36.8; O2SAT 95
[2023-12-06] MEDS: spironolactone 25 mg Tablet PO (17:37)
[2023-12-06 18:57] LABS: Anion Gap 13.5 (5-19); Blood Urea Nitrogen 26 mg/dL (8-23); Calcium 9.4 mg/dL (8.5-10.5); Carbon Dioxide 33 mmol/L (22-29); Chloride 101 mmol/L (98-107); Creatinine Clr Calc Pharmacy 61.9212; Glomerular Filtration Rate 40.6 mL/min (90-130); Glucose 142 mg/dL (65-115); Osmolality Calculated 305 mOsm/kg (285-295); Potassium 3.5 mmol/L (3.5-5.1); Sodium 144 mmol/L (136-145)
[2023-12-06 20:00] VITALS: BP 144/77; PULSE 76; RESP 18; TEMP 36.4; O2SAT 94
[2023-12-06] MEDS: atorvastatin 40 mg Tablet 20 MG PO (20:49)
[2023-12-06 21:07] LABS: Glucose Point of Care 137 mg/dL (70-110)
[2023-12-07] VITALS: BP 121/78; PULSE 20; RESP 18; TEMP 36.6; O2SAT 98
[2023-12-07 04:00] VITALS: BP 127/77; PULSE 71; RESP 18; TEMP 36.7; O2SAT 97
[2023-12-07 04:59] LABS: Basophils # 0.1 10^3/uL (0.0-0.1); Basophils % 0.6 %; Eosinophils # 0.3 10^3/uL (0.0-0.8); Eosinophils % 3.4 %; Hematocrit 47.7 % (36-47); Lymphocytes # 1.8 10^3/uL (0.8-4.8); Mean Corpuscular HGB Conc 31.2 g/dL (30-55); Mean Corpuscular Hemoglobin 27.8 pg (27-33); Mean Platelet Volume 10.6 fL (7.4-10.4); Monocytes # 0.8 10^3/uL (0.2-0.9); Monocytes % 8.6 %; Neutrophils # 5.87 10^3/uL (1.8-7.7); Neutrophils % 66.8 %; Nucleated Red Blood Cells % 0 %; Platelet Count 261 10^3/cmm (157-399); Red Blood Count 5.36 10^6/uL (3.85-5.65); Red Cell Distribution Width 16.4 % (12.1-15.1); White Blood Count 8.77 10^3/uL (3.29-11.43)
[2023-12-07] MEDS: FUROsemide 10 mg/mL SDV 10mL 60 MG IVP ×3 (05:19→20:24)
[2023-12-07 05:30] LABS: Magnesium 2.1 mg/dL (1.7-2.3)
[2023-12-07 05:33] LABS: Blood Urea Nitrogen 29 mg/dL (8-23); Calcium 9.4 mg/dL (8.5-10.5); Carbon Dioxide 34 mmol/L (22-29); Chloride 99 mmol/L (98-107); Glomerular Filtration Rate 49.2 mL/min (90-130); Glucose 78 mg/dL (65-115); NT Pro B Type Natriuretic Pept 600 pg/mL (0-125); Osmolality Calculated 303 mOsm/kg (285-295); Sodium 144 mmol/L (136-145)
[2023-12-07 05:42] LABS: Creatinine Clr Calc Pharmacy 71.7107
[2023-12-07 05:43] LABS: Anion Gap 14.5 (5-19); Potassium 3.5 mmol/L (3.5-5.1)
[2023-12-07 06:27] LABS: Glucose Point of Care 81 mg/dL (70-110)
[2023-12-07 07:17] VITALS: BP 143/83; PULSE 75; RESP 16; TEMP 36.8; O2SAT 97
[2023-12-07] MEDS: metoprolol tartrate 50 mg Tablet 100 MG PO ×2 (09:22→18:30)
[2023-12-07] MEDS: BuSPIRONE 10 mg Tablet PO ×3 (09:22→20:24)
[2023-12-07] MEDS: clopidogrel 75 mg Tablet PO (09:22)
[2023-12-07] MEDS: allopurinol 300 mg Tablet PO (09:22)
[2023-12-07] MEDS: apixaban 5 mg Tablet PO ×2 (09:22→18:30)
[2023-12-07] MEDS: metOLazone 5 MG Tablet 10 MG PO (09:22)
[2023-12-07] MEDS: cholecalciferol (vitamin D3) 1,000 unit Tablet 2000 UNIT PO (09:23)
[2023-12-07] MEDS: levothyroxine 50 mcg Tablet PO (09:23)
[2023-12-07] MEDS: cyanocobalamin 1,000 mcg Tablet 1000 MCG PO (09:23)
[2023-12-07] MEDS: dilTIAZem ER (24HR) 120 mg Capsule PO (09:23)
[2023-12-07] MEDS: pregabalin 50 mg Capsule PO ×2 (09:23→18:30)
[2023-12-07] MEDS: potassium chloride ER 20 mEq Tablet PO ×2 (09:23→18:30)
[2023-12-07] MEDS: insulin glargine 100 units/1 mL 90 UNIT SUBCUT ×2 (09:29→18:30)
--- NOTE | 2023-12-07 10:00 | PC.SOCIAL ---
IMM Update pg 2 of IMM reviewed w/ patient. Copy signed. Copy dated, initialed and placed in chart. Copy provided to patient.
[2023-12-07 11:03] LABS: Glucose Point of Care 132 mg/dL (70-110)
[2023-12-07 11:39] VITALS: BP 124/70; PULSE 72; RESP 16; TEMP 36.7; O2SAT 97
--- NOTE | 2023-12-07 14:25 | PM.PN ---
Subjective Subjective: Patient was seen this morning, her edema is improving, shortness of breath is improving, no fevers, no chills Vitals/I&O/Wt Last Vital Signs Temp 98.0 F 12/07/23 11:39 Pulse 72 12/07/23 11:39 Resp 16 12/07/23 11:39 BP 124/70 12/07/23 11:39 Pulse Ox 97 12/07/23 11:39 O2 Del Method Nasal Cannula 12/07/23 11:39 O2 Flow Rate 2 12/07/23 11:39 12/06/23 12/07/23 12/07/23 22:59 06:59 14:59 Intake Total 220 / 460 300 / 760 480 / 480 Output Total 2400 / 3400 800 / 4200 1200 / 1200 Balance -2180 / -2940 -500 / -3440 -720 / -720 Weight last 48 hrs Weight 139.423 kg Weight 144.242 kg Weight 142.882 kg Physical Exam Const: COMMON NORMALS: no acute distress and patient oriented x3 Resp: COMMON NORMALS: normal respiratory effort, No retractions, No use of accessory muscles and clear to auscultation bilaterally AUSCULTATION: clear to auscultation bilaterally Cardio: COMMON NORMALS: regular rate, regular rhythm, S1 normal heart sound present and S2 normal heart sound present RATE: regular rate RHYTHM: regular rhythm HEART SOUNDS: S1 normal heart sound present and S2 normal heart sound present GI: COMMON NORMALS: Normal to inspection, nondistended, normoactive bowel sounds present and non-tender Extremity: NARRATIVE EXTREMITY EXAM: 3+ pitting edema Neuro: COMMON NORMALS: patient oriented x3 Psych: COMMON NORMALS: mental status grossly normal Data 12/07/23 04:34 12/07/23 04:34 A&P Assessment and plan (1) CHF exacerbation: (2) CAD (coronary artery disease): (3) Hyperlipidemia: Qualifiers: Hyperlipidemia type: mixed hyperlipidemia Qualified Code(s): E78.2 - Mixed hyperlipidemia (4) Atrial fibrillation: Qualifiers: Atrial fibrillation type: persistent (not longstanding) Qualified Code(s): I48.19 - Other persistent atrial fibrillation (5) Hypercholesteremia: (6) Type 2 diabetes mellitus: (7) Major depressive disorder, recurrent severe without psychotic features: (8) Generalized anxiety disorder: (9) Atherosclerotic heart disease of [place] coronary artery with unstable angina pectoris: Plan Acute CHF exacerbation, fluid overload, weight gain, 2+ pitting edema lower extremities ? Failure with outpatient diuresis, using Lasix 120 mg 3 times daily with metolazone ? Plan ? Will try Lasix 60 mg every 8 hours -As she tells me that Bumex does not work for her, she has never tried torsemide ? Spironolactone 25 mg daily ? Metolazone 10 mg daily ? Fluid restrictions at 1000 cc next ?monitor urine output, monitor creatinine, monitor clinical progress ? Type 2 diabetes mellitus, continue Lantus 90 units twice daily confirmed this is her dose, low-dose sliding scale ? CAD continue Plavix ? History of atrial fibrillation continue Eliquis, continue metoprolol 100 twice daily ? Hypothyroidism continue levothyroxine ? Full code Lovenox for DVT prophylaxis Plan for today patient is -4 L,Lasix 60 mg IV every 8 hours with spironolactone with metolazone will give her time, based on clinical progress further recommendations will be given, will consider Lasix drip Attestations Medical Necessity Statement*: Patient requires hospitalization for CHF exacerbation requiring IV diuresis repeat BMP this afternoon Diagnoses CHF exacerbation I50.9 CAD (coronary artery disease) I25.10 Mixed hyperlipidemia E78.2 Hyperlipidemia type: mixed hyperlipidemia Persistent atrial fibrillation I48.19 Atrial fibrillation type: persistent (not longstanding) Hypercholesteremia E78.00 Type 2 diabetes mellitus E11.9 Major depressive disorder, recurrent severe without psychotic features F33.2 Generalized anxiety disorder F41.1 Atherosclerotic heart disease of [place] coronary artery with unstable angina pectoris I25.110
[2023-12-07 15:48] VITALS: BP 150/94; PULSE 84; RESP 15; TEMP 36.7; O2SAT 97
[2023-12-07 16:42] LABS: Glucose Point of Care 175 mg/dL (70-110)
[2023-12-07 18:00] LABS: Anion Gap 11.6 (5-19); Blood Urea Nitrogen 32 mg/dL (8-23); Calcium 10.3 mg/dL (8.5-10.5); Carbon Dioxide 39 mmol/L (22-29); Chloride 93 mmol/L (98-107); Creatinine Clr Calc Pharmacy 56.3441; Glomerular Filtration Rate 37.3 mL/min (90-130); Glucose 162 mg/dL (65-115); Osmolality Calculated 300 mOsm/kg (285-295); Potassium 3.6 mmol/L (3.5-5.1); Sodium 140 mmol/L (136-145)
[2023-12-07] MEDS: insulin lispro 100 unit/1 mL SUBCUT (18:30)
[2023-12-07] MEDS: spironolactone 25 mg Tablet PO (18:30)
[2023-12-07 20:00] VITALS: BP 151/74; PULSE 63; RESP 18; TEMP 36.8; O2SAT 97
[2023-12-07] MEDS: atorvastatin 40 mg Tablet 20 MG PO (20:24)
[2023-12-07 20:28] LABS: Glucose Point of Care 214 mg/dL (70-110)
[2023-12-08] VITALS: BP 170/77; PULSE 79; RESP 19; TEMP 36.6; O2SAT 97
[2023-12-08 04:00] VITALS: BP 135/68; PULSE 74; RESP 18; TEMP 36.7; O2SAT 98
[2023-12-08] MEDS: FUROsemide 10 mg/mL SDV 10mL 60 MG IVP ×2 (05:39→12:26)
[2023-12-08 05:52] LABS: Glucose Point of Care 102 mg/dL (70-110)
[2023-12-08 06:12] LABS: Basophils # 0.1 10^3/uL (0.0-0.1); Basophils % 0.8 %; Eosinophils # 0.3 10^3/uL (0.0-0.8); Eosinophils % 3.4 %; Hematocrit 49.4 % (36-47); Lymphocytes # 1.5 10^3/uL (0.8-4.8); Lymphocytes % 16.7 %; Mean Corpuscular Hemoglobin 27.6 pg (27-33); Mean Platelet Volume 10.8 fL (7.4-10.4); Monocytes # 0.9 10^3/uL (0.2-0.9); Neutrophils # 6.17 10^3/uL (1.8-7.7); Neutrophils % 68.5 %; Nucleated Red Blood Cells % 0 %; Platelet Count 264 10^3/cmm (157-399); Red Blood Count 5.55 10^6/uL (3.85-5.65); Red Cell Distribution Width 15.9 % (12.1-15.1)
[2023-12-08 06:35] LABS: Magnesium 1.9 mg/dL (1.7-2.3)
[2023-12-08 06:41] LABS: Anion Gap 14.3 (5-19); Blood Urea Nitrogen 35 mg/dL (8-23); Calcium 9.9 mg/dL (8.5-10.5); Carbon Dioxide 38 mmol/L (22-29); Chloride 93 mmol/L (98-107); Glomerular Filtration Rate 37.3 mL/min (90-130); Glucose 119 mg/dL (65-115); NT Pro B Type Natriuretic Pept 528 pg/mL (0-125); Osmolality Calculated 303 mOsm/kg (285-295); Potassium 3.3 mmol/L (3.5-5.1); Sodium 142 mmol/L (136-145)
[2023-12-08 06:46] LABS: Creatinine Clr Calc Pharmacy 56.2924
[2023-12-08 07:28] VITALS: BP 122/87; PULSE 84; RESP 15; TEMP 36.7; O2SAT 97
[2023-12-08] MEDS: potassium chloride ER 20 mEq Tablet PO ×3 (08:40→17:41)
[2023-12-08] MEDS: pregabalin 50 mg Capsule PO ×2 (08:40→17:41)
[2023-12-08] MEDS: apixaban 5 mg Tablet PO ×2 (08:40→17:41)
[2023-12-08] MEDS: dilTIAZem ER (24HR) 120 mg Capsule PO (08:40)
[2023-12-08] MEDS: metoprolol tartrate 50 mg Tablet 100 MG PO ×2 (08:41→17:41)
[2023-12-08] MEDS: metOLazone 5 MG Tablet 10 MG PO (08:41)
[2023-12-08] MEDS: levothyroxine 50 mcg Tablet PO (08:41)
[2023-12-08] MEDS: cholecalciferol (vitamin D3) 1,000 unit Tablet 2000 UNIT PO (08:41)
[2023-12-08] MEDS: BuSPIRONE 10 mg Tablet PO ×3 (08:41→20:02)
[2023-12-08] MEDS: clopidogrel 75 mg Tablet PO (08:41)
[2023-12-08] MEDS: cyanocobalamin 1,000 mcg Tablet 1000 MCG PO (08:41)
[2023-12-08] MEDS: insulin glargine 100 units/1 mL 90 UNIT SUBCUT ×2 (08:41→17:41)
[2023-12-08] MEDS: allopurinol 300 mg Tablet PO (08:41)
[2023-12-08 11:05] LABS: Glucose Point of Care 188 mg/dL (70-110)
[2023-12-08 11:32] VITALS: BP 126/80; PULSE 85; RESP 16; TEMP 36.9; O2SAT 95
--- NOTE | 2023-12-08 12:11 | P.PN_ITS ---
Subjective 2 Subjective: Patient was seen this morning, denies any fevers, chills, no cough still has lower extreme edema but improved, we discussed her creatinine up to 1.4 we will have to monitor her closely, she voiced understanding, all questions answered Vitals/I&O/Wt Last Vital Signs Temp 98.4 F 12/08/23 11:32 Pulse 85 12/08/23 11:32 Resp 16 12/08/23 11:32 BP 126/80 12/08/23 11:32 Pulse Ox 95 12/08/23 11:32 O2 Del Method Room Air 12/08/23 11:32 O2 Flow Rate 3 12/08/23 11:32 12/07/23 12/08/23 12/08/23 22:59 06:59 14:59 Intake Total 858 / 1338 120 / 1458 240 / 240 Output Total 600 / 1800 1600 / 3400 Balance 258 / -462 -1480 / -1942 240 / 240 Weight last 48 hrs Weight 139.207 kg Weight 139.423 kg Physical Exam 2 Const: COMMON NORMALS: no acute distress and patient oriented x3 Resp: COMMON NORMALS: normal respiratory effort, No retractions, No use of accessory muscles and clear to auscultation bilaterally AUSCULTATION: clear to auscultation bilaterally Cardio: COMMON NORMALS: regular rate, regular rhythm, S1 normal heart sound present and S2 normal heart sound present RATE: regular rate RHYTHM: r egular rhythm HEART SOUNDS: S1 normal heart sound present and S2 normal heart sound present GI: COMMON NORMALS: Normal to inspection, nondistended, normoactive bowel sounds present and non-tender Extremity: COMMON NORMALS: no pedal edema Neuro: COMMON NORMALS: patient oriented x3 Psych: COMMON NORMALS: mental status grossly normal Data 12/08/23 05:09 12/08/23 05:09 A&P Assessment and plan (1) CHF exacerbation: (2) CAD (coronary artery disease): (3) Hyperlipidemia: Qualifiers: Hyperlipidemia type: mixed hyperlipidemia Qualified Code(s): E78.2 - Mixed hyperlipidemia (4) Atrial fibrillation: Qualifiers: Atrial fibrillation type: persistent (not longstanding) Qualified Code(s): I48.19 - Other persistent atrial fibrillation (5) Hypercholesteremia: (6) Type 2 diabetes mellitus: (7) Major depressive disorder, recurrent severe without psychotic features: (8) Generalized anxiety disorder: (9) Atherosclerotic heart disease of [place] coronary artery with unstable angina pectoris: Plan Acute CHF exacerbation, fluid overload, weight gain, 2+ pitting edema lower extremities ? Failure with outpatient diuresis, using Lasix 120 mg 3 times daily with metolazone ? Plan ? Will try Lasix 60 mg every 8 hours -As she tells me that Bumex does not work for her, she has never tried torsemide ? Spironolactone 25 mg daily ? Metolazone 10 mg daily ? Fluid restrictions at 1000 cc next ?monitor urine output, monitor creatinine, monitor clinical progress ? Type 2 diabetes mellitus, continue Lantus 90 units twice daily confirmed this is her dose, low-dose sliding scale ? CAD continue Plavix ? History of atrial fibrillation continue Eliquis, continue metoprolol 100 twice daily ? Hypothyroidism continue levothyroxine ? Full code Lovenox for DVT prophylaxis Plan for today patient is -6 L,Lasix 60 mg IV every 8 hours with spironolactone with metolazone will give her time, creatinine 1.4 recheck creatinine in the afternoon will decide on further Lasix dosing based on clinical progress Attestations 2 Medical Necessity Statement*: Patient requires hospitalization for fluid overload, [place], CHF Diagnoses CHF exacerbation I50.9 CAD (coronary artery disease) I25.10 Mixed hyperlipidemia E78.2 Hyperlipidemia type: mixed hyperlipidemia Persistent atrial fibrillation I48.19 Atrial fibrillation type: persistent (not longstanding) Hypercholesteremia E78.00 Type 2 diabetes mellitus E11.9 Major depressive disorder, recurrent severe without psychotic features F33.2 Generalized anxiety disorder F41.1 Atherosclerotic heart disease of [place] coronary artery with unstable angina pectoris I25.110
[2023-12-08] MEDS: insulin lispro 100 unit/1 mL SUBCUT ×2 (12:24→18:28)
[2023-12-08 15:05] LABS: Anion Gap 14.6 (5-19); Blood Urea Nitrogen 38 mg/dL (8-23); Calcium 9.8 mg/dL (8.5-10.5); Carbon Dioxide 38 mmol/L (22-29); Chloride 89 mmol/L (98-107); Creatinine Clr Calc Pharmacy 46.3585; Glomerular Filtration Rate 29.8 mL/min (90-130); Glucose 219 mg/dL (65-115); Osmolality Calculated 302 mOsm/kg (285-295); Potassium 3.6 mmol/L (3.5-5.1); Sodium 138 mmol/L (136-145)
[2023-12-08 16:03] VITALS: BP 138/75; PULSE 83; RESP 16; TEMP 36.9; O2SAT 97
[2023-12-08] MEDS: spironolactone 25 mg Tablet PO (17:41)
[2023-12-08 17:45] LABS: Glucose Point of Care 257 mg/dL (70-110)
[2023-12-08 20:00] VITALS: BP 133/81; PULSE 73; RESP 17; TEMP 36.8; O2SAT 96
[2023-12-08] MEDS: atorvastatin 40 mg Tablet 20 MG PO (20:02)
[2023-12-08 20:16] LABS: Glucose Point of Care 290 mg/dL (70-110)
[2023-12-09] VITALS: BP 127/76; PULSE 74; RESP 17; TEMP 36.9; O2SAT 92
[2023-12-09 04:00] VITALS: BP 119/73; PULSE 88; RESP 17; TEMP 36.7; O2SAT 96
[2023-12-09 05:41] LABS: Basophils # 0.1 10^3/uL (0.0-0.1); Basophils % 0.8 %; Eosinophils # 0.3 10^3/uL (0.0-0.8); Eosinophils % 3.5 %; Hematocrit 47.3 % (36-47); Lymphocytes # 1.6 10^3/uL (0.8-4.8); Lymphocytes % 17.5 %; Mean Corpuscular HGB Conc 31.7 g/dL (30-55); Mean Corpuscular Hemoglobin 28.4 pg (27-33); Mean Corpuscular Volume 89.4 fl (85-98); Mean Platelet Volume 10.5 fL (7.4-10.4); Monocytes % 10.4 %; Neutrophils # 6.17 10^3/uL (1.8-7.7); Neutrophils % 67.1 %; Nucleated Red Blood Cells % 0 %; Platelet Count 247 10^3/cmm (157-399); Red Blood Count 5.29 10^6/uL (3.85-5.65); Red Cell Distribution Width 15.9 % (12.1-15.1); White Blood Count 9.19 10^3/uL (3.29-11.43)
[2023-12-09 05:47] LABS: Glucose Point of Care 200 mg/dL (70-110)
[2023-12-09 06:02] LABS: Magnesium 2.1 mg/dL (1.7-2.3)
[2023-12-09 06:10] LABS: Anion Gap 10.8 (5-19); Blood Urea Nitrogen 48 mg/dL (8-23); Calcium 9.6 mg/dL (8.5-10.5); Carbon Dioxide 39 mmol/L (22-29); Chloride 96 mmol/L (98-107); Creatinine Clr Calc Pharmacy 48.8948; Glucose 216 mg/dL (65-115); NT Pro B Type Natriuretic Pept 435 pg/mL (0-125); Osmolality Calculated 313 mOsm/kg (285-295); Potassium 3.8 mmol/L (3.5-5.1); Sodium 142 mmol/L (136-145)
[2023-12-09 08:00] VITALS: BP 132/82; PULSE 88; RESP 19; TEMP 36.6; O2SAT 95
[2023-12-09] MEDS: apixaban 5 mg Tablet PO ×2 (08:30→17:07)
[2023-12-09] MEDS: allopurinol 300 mg Tablet PO (08:30)
[2023-12-09] MEDS: dilTIAZem ER (24HR) 120 mg Capsule PO (08:30)
[2023-12-09] MEDS: BuSPIRONE 10 mg Tablet PO ×3 (08:30→20:19)
[2023-12-09] MEDS: pregabalin 50 mg Capsule PO ×2 (08:30→17:07)
[2023-12-09] MEDS: potassium chloride ER 20 mEq Tablet PO ×2 (08:31→17:07)
[2023-12-09] MEDS: cholecalciferol (vitamin D3) 1,000 unit Tablet 2000 UNIT PO (08:31)
[2023-12-09] MEDS: metoprolol tartrate 50 mg Tablet 100 MG PO ×2 (08:31→17:07)
[2023-12-09] MEDS: clopidogrel 75 mg Tablet PO (08:31)
[2023-12-09] MEDS: cyanocobalamin 1,000 mcg Tablet 1000 MCG PO (08:32)
[2023-12-09] MEDS: insulin lispro 100 unit/1 mL SUBCUT ×3 (08:32→17:25)
[2023-12-09] MEDS: insulin glargine 100 units/1 mL 90 UNIT SUBCUT ×2 (08:33→17:08)
[2023-12-09] MEDS: levothyroxine 50 mcg Tablet PO (08:50)
[2023-12-09] MEDS: lanolin oint 7 gm 1 APPLIC TOPICAL (08:50)
[2023-12-09 11:58] LABS: Glucose Point of Care 225 mg/dL (70-110)
[2023-12-09 12:00] VITALS: BP 154/97; PULSE 104; RESP 19; TEMP 36.7; O2SAT 95
--- NOTE | 2023-12-09 13:22 | PM.PN ---
Subjective Subjective: Patient seen this morning, she is sitting up in a chair, she is -6 L so far, we discussed her elevated creatinine to 1.7, down to 1.6 today, we discussed holding diuresis for today, she is worried about her feeling up back with fluid as she has done in the past so quickly, will monitor creatinine again this afternoon, decide if and when to resume diuresis, she voices understanding Vitals/I&O/Wt Last Vital Signs Temp 98.0 F 12/09/23 12:00 Pulse 104 H 12/09/23 12:00 Resp 19 H 12/09/23 12:00 BP 154/97 12/09/23 12:00 Pulse Ox 95 12/09/23 12:00 O2 Del Method Nasal Cannula 12/09/23 12:00 O2 Flow Rate 3 12/09/23 04:00 12/08/23 12/09/23 12/09/23 22:59 06:59 14:59 Intake Total 640 / 1238 240 / 1478 240 / 240 Output Total 1200 / 1200 400 / 1600 750 / 750 Balance -560 / 38 -160 / -122 -510 / -510 Weight last 48 hrs Weight 137.484 kg Weight 139.207 kg Physical Exam Const: COMMON NORMALS: no acute distress and patient oriented x3 Resp: COMMON NORMALS: normal respiratory effort, No retractions, No use of accessory muscles and clear to auscultation bilaterally AUSCULTATION: clear to auscultation bilaterally Cardio: COMMON NORMALS: regular rate, regular rhythm, S1 normal heart sound present and S2 normal heart sound present RATE: regular rate RHYTHM: regular rhythm HEART SOUNDS: S1 normal heart sound present and S2 normal heart sound present GI: COMMON NORMALS: Normal to inspection, nondistended, normoactive bowel sounds present and non-tender Extremity: NARRATIVE EXTREMITY EXAM: 2+ pitting edema Neuro: COMMON NORMALS: patient oriented x3 Psych: COMMON NORMALS: mental status grossly normal Data 12/09/23 05:29 12/09/23 05:29 A&P Assessment and plan (1) CHF exacerbation: (2) CAD (coronary artery disease): (3) Hyperlipidemia: Qualifiers: Hyperlipidemia type: mixed hyperlipidemia Qualified Code(s): E78.2 - Mixed hyperlipidemia (4) Atrial fibrillation: Qualifiers: Atrial fibrillation type: persistent (not longstanding) Qualified Code(s): I48.19 - Other persistent atrial fibrillation (5) Hypercholesteremia: (6) Type 2 diabetes mellitus: (7) Major depressive disorder, recurrent severe without psychotic features: (8) Generalized anxiety disorder: (9) Atherosclerotic heart disease of [place] coronary artery with unstable angina pectoris: Plan Acute CHF exacerbation, fluid overload, weight gain, 2+ pitting edema lower extremities ? Failure with outpatient diuresis, using Lasix 120 mg 3 times daily with metolazone ? Plan ? Will try Lasix 60 mg every 8 hours -As she tells me that Bumex does not work for her, she has never tried torsemide ? Spironolactone 25 mg daily ? Metolazone 10 mg daily ? Fluid restrictions at 1000 cc next ?monitor urine output, monitor creatinine, monitor clinical progress ? Type 2 diabetes mellitus, continue Lantus 90 units twice daily confirmed this is her dose, low-dose sliding scale ? CAD continue Plavix ? History of atrial fibrillation continue Eliquis, continue metoprolol 100 twice daily ? Hypothyroidism continue levothyroxine ? Full code Lovenox for DVT prophylaxis Plan for today patient is -6 L, hold Lasix as creatinine level 1.6, recheck BMP mag this afternoon decision if and when to resume diuresis based on clinical progress Attestations Medical Necessity Statement*: patient requires hospitalization for CHF exacerbation requiring diuresis Diagnoses CHF exacerbation I50.9 CAD (coronary artery disease) I25.10 Mixed hyperlipidemia E78.2 Hyperlipidemia type: mixed hyperlipidemia Persistent atrial fibrillation I48.19 Atrial fibrillation type: persistent (not longstanding) Hypercholesteremia E78.00 Type 2 diabetes mellitus E11.9 Major depressive disorder, recurrent severe without psychotic features F33.2 Generalized anxiety disorder F41.1 Atherosclerotic heart disease of [place] coronary artery with unstable angina pectoris I25.110
[2023-12-09 14:40] LABS: Anion Gap 13.7 (5-19); Blood Urea Nitrogen 46 mg/dL (8-23); Calcium 9.9 mg/dL (8.5-10.5); Carbon Dioxide 36 mmol/L (22-29); Chloride 96 mmol/L (98-107); Glomerular Filtration Rate 37.3 mL/min (90-130); Glucose 239 mg/dL (65-115); Magnesium 2.1 mg/dL (1.7-2.3); Osmolality Calculated 314 mOsm/kg (285-295); Phosphorus 4.2 mg/dL (2.5-4.5); Potassium 3.7 mmol/L (3.5-5.1); Sodium 142 mmol/L (136-145)
[2023-12-09 14:43] LABS: Creatinine Clr Calc Pharmacy 55.8798
[2023-12-09 16:00] VITALS: BP 122/64; PULSE 88; RESP 19; TEMP 36.7; O2SAT 96
[2023-12-09 16:28] LABS: Glucose Point of Care 223 mg/dL (70-110)
[2023-12-09] MEDS: metOLazone 5 MG Tablet PO (16:44)
[2023-12-09] MEDS: FUROsemide 10 mg/mL SDV 10mL 60 MG IVP (16:44)
[2023-12-09] MEDS: diphenhydrAMINE 25 mg Capsule PO (17:07)
[2023-12-09 20:00] VITALS: BP 126/60; PULSE 72; RESP 16; TEMP 36.8; O2SAT 95
[2023-12-09 20:09] LABS: Glucose Point of Care 265 mg/dL (70-110)
[2023-12-09] MEDS: atorvastatin 40 mg Tablet 20 MG PO (20:19)
[2023-12-10] VITALS: BP 139/82; PULSE 83; RESP 19; TEMP 36.6; O2SAT 94
[2023-12-10 04:00] VITALS: BP 126/93; PULSE 82; RESP 17; TEMP 36.8; O2SAT 92
[2023-12-10 05:14] LABS: Basophils # 0.1 10^3/uL (0.0-0.1); Basophils % 0.8 %; Eosinophils # 0.3 10^3/uL (0.0-0.8); Eosinophils % 3.7 %; Hematocrit 48.5 % (36-47); Lymphocytes # 1.7 10^3/uL (0.8-4.8); Lymphocytes % 18.2 %; Mean Corpuscular HGB Conc 30.7 g/dL (30-55); Mean Corpuscular Hemoglobin 27.7 pg (27-33); Mean Corpuscular Volume 90.1 fl (85-98); Mean Platelet Volume 10.5 fL (7.4-10.4); Monocytes # 0.8 10^3/uL (0.2-0.9); Monocytes % 9.1 %; Neutrophils # 6.17 10^3/uL (1.8-7.7); Neutrophils % 67.8 %; Nucleated Red Blood Cells % 0 %; Platelet Count 267 10^3/cmm (157-399); Red Blood Count 5.38 10^6/uL (3.85-5.65); White Blood Count 9.11 10^3/uL (3.29-11.43)
[2023-12-10 05:21] LABS: Magnesium 2.1 mg/dL (1.7-2.3)
[2023-12-10 05:34] LABS: Blood Urea Nitrogen 46 mg/dL (8-23); Calcium 9.6 mg/dL (8.5-10.5); Carbon Dioxide 36 mmol/L (22-29); Chloride 99 mmol/L (98-107); Creatinine Clr Calc Pharmacy 60.1782; Glomerular Filtration Rate 40.6 mL/min (90-130); Glucose 183 mg/dL (65-115); NT Pro B Type Natriuretic Pept 476 pg/mL (0-125); Osmolality Calculated 313 mOsm/kg (285-295); Sodium 143 mmol/L (136-145)
[2023-12-10 06:07] LABS: Glucose Point of Care 163 mg/dL (70-110)
[2023-12-10 07:23] VITALS: BP 152/73; PULSE 75; RESP 18; TEMP 36.8; O2SAT 98
[2023-12-10] MEDS: cyanocobalamin 1,000 mcg Tablet 1000 MCG PO (09:16)
[2023-12-10] MEDS: cholecalciferol (vitamin D3) 1,000 unit Tablet 2000 UNIT PO (09:16)
[2023-12-10] MEDS: levothyroxine 50 mcg Tablet PO (09:16)
[2023-12-10] MEDS: insulin lispro 100 unit/1 mL SUBCUT ×2 (09:16→13:18)
[2023-12-10] MEDS: insulin glargine 100 units/1 mL 90 UNIT SUBCUT (09:16)
[2023-12-10] MEDS: apixaban 5 mg Tablet PO (09:17)
[2023-12-10] MEDS: pregabalin 50 mg Capsule PO (09:17)
[2023-12-10] MEDS: metoprolol tartrate 50 mg Tablet 100 MG PO (09:17)
[2023-12-10] MEDS: dilTIAZem ER (24HR) 120 mg Capsule PO (09:17)
[2023-12-10] MEDS: clopidogrel 75 mg Tablet PO (09:17)
[2023-12-10] MEDS: potassium chloride ER 20 mEq Tablet PO (09:17)
[2023-12-10] MEDS: BuSPIRONE 10 mg Tablet PO ×2 (09:17→15:50)
[2023-12-10] MEDS: allopurinol 300 mg Tablet PO (09:17)
[2023-12-10 09:25] LABS: Glucose Point of Care 199 mg/dL (70-110)
[2023-12-10 12:00] VITALS: BP 136/85; PULSE 82; RESP 17; TEMP 36.5; O2SAT 95
[2023-12-10 12:50] LABS: Glucose Point of Care 261 mg/dL (70-110)
[2023-12-10] MEDS: acetaminophen 500 mg Tablet 1000 MG PO (13:20)
--- NOTE | 2023-12-10 15:44 | PM.DCS ---
Discharge Providers Date of Admission: 12/05/23 16:52 Date of Discharge: December 10, 2023 Attending Provider at Admission: Jamel Alicea MD Attending Provider at Discharge: Rayray Peters Primary Care Provider: Farhat Acosta MD Diagnoses at Discharge Discharge Diagnosis (1) CHF exacerbation: Status: Acute (2) CAD (coronary artery disease): Status: Chronic Permanent problem details: Last echocardiogram 08/06 with EF of 50% Stents x 3 - last in 02/2023 (3) Hyperlipidemia: Status: Acute Qualifiers: Hyperlipidemia type: mixed hyperlipidemia Qualified Code(s): E78.2 - Mixed hyperlipidemia (4) Atrial fibrillation: Status: Acute Qualifiers: Atrial fibrillation type: persistent (not longstanding) Qualified Code(s): I48.19 - Other persistent atrial fibrillation (5) Hypercholesteremia: Status: Acute (6) Type 2 diabetes mellitus: Status: Acute (7) Major depressive disorder, recurrent severe without psychotic features: Status: Chronic (8) Generalized anxiety disorder: Status: Chronic (9) Atherosclerotic heart disease of [place] coronary artery with unstable angina pectoris: Status: Acute Reason for Visit Reason for Visit: swollen, sob Hospital Course Hospital Course 68-year-old lady with history of systolic and diastolic CHF, was admitted after presenting with shortness of breath, severe edema, weight gain, unresponsive to diuretics despite being on 120 mg of Lasix 3 times daily as well as metolazone, she was admitted and treated with IV diuretics 60 mg Lasix every 8 hours with metolazone daily, responded to diuresis, however, encountered renal response to diuresis, difficulty with worsening renal function while in the hospital, with GEORGES on CKD creatinine came up to 1.7 diuretics were held, kidney function improved at 1.4, received additional diuretic dose last night, today creatinine is 1.3. She is overall -8 L. She still has some residual edema. Discussed with her options of continuing IV diuretics, however, with risks of further worsening renal function/GEORGES, given she has made progress, remains on baseline oxygen, has ambulated in the room, although does get dyspneic walking to the edge of her room, appears to have returned closer to her usual baseline. We discussed with her strategies going forward, as per discussion with her team she will continue on Lasix 120 mg twice a day, but also add restriction 1 L/day in addition to cardiac diet as discussed. She understands importance of avoiding fluid overload, she understands as per discussion risk of recurrence of CHF and risk of readmission. Once her kidney function stabilized, consider addition of Entresto, similarly consider addition of Farxiga. Consider addition of spironolactone. Please reassess heart failure and renal function at next visit. Continue to optimize cardiovascular risk, consider options for weight loss. Physical Exam Const: COMMON NORMALS: patient oriented x3 and alert GENERAL APPEARANCE: cooperative ORIENTATION/CONSCIOUSNESS: Yes awake HENMT: COMMON NORMALS: oropharynx normal Neck/C-Spine: COMMON NORMALS: no JVD Resp: COMMON NORMALS: normal respiratory effort and clear to auscultation bilaterally AUSCULTATION: clear to auscultation bilaterally Cardio: COMMON NORMALS: no JVD, regular rhythm, S1 normal heart sound present, S2 normal heart sound present and No murmurs present (Cardio) RHYTHM: regular rhythm HEART SOUNDS: S1 normal heart sound present and S2 normal heart sound present GI: COMMON NORMALS: Normal to inspection, nondistended, normoactive bowel sounds present, Soft to palpation and non-tender PALPATION: Yes Soft to palpation Extremity: COMMON NORMALS: no joint enlargement GENERAL: Yes edema (2+) OTHER: Left lower extremity chronically larger than right. Neuro: COMMON NORMALS: patient oriented x3 and moves all extremities SENSORIUM/ORIENTATION: Yes alert Skin: COMMON NORMALS: no rashes or lesions noted GENERAL SKIN EXAM: no rashes or lesions noted Discharge Data Studies Completed and Pending Completed Studies During Hospitalization Category Date Time Status XR chest 1V portable [id number] Stat Exams 12/05/23 10:41 Completed Pending at discharge Category Date Time Status Basic Metabolic Panel AM LABS Lab 12/11/23 04:00 Ordered Complete Blood Count w/Auto AM LABS Lab 12/11/23 04:00 Ordered Magnesium AM LABS Lab 12/11/23 04:00 Ordered NT Pro B Type Natriuretic Pept QAM Lab 12/11/23 06:00 Ordered Radiology Impressions Chest X-Ray 12/05/23 10:41 IMPRESSION: 1. Coarsening of interstitial markings throughout both lungs probably chronic in nature. No acute process is suspected. 2. Chronic widening of the mediastinum on the RIGHT. Laboratory Results WBC 9.11 10^3/uL (3.29-11.43) 12/10/23 04:38 RBC 5.38 10^6/uL (3.85-5.65) 12/10/23 04:38 Hgb 14.90 g/dL (11.27-16.99) 12/10/23 04:38 Hct 48.5 % (36-47) H 12/10/23 04:38 MCV 90.1 fl (85-98) 12/10/23 04:38 MCH 27.7 pg (27-33) 12/10/23 04:38 MCHC 30.7 g/dL (30-55) 12/10/23 04:38 RDW 16.0 % (12.1-15.1) H 12/10/23 04:38 Plt Count 267 10^3/cmm (157-399) 12/10/23 04:38 MPV 10.5 fL (7.4-10.4) H 12/10/23 04:38 Neut % (Auto) 67.8 % 12/10/23 04:38 Lymph % (Auto) 18.2 % 12/10/23 04:38 Patrick % (Auto) 9.1 % 12/10/23 04:38 Eos % (Auto) 3.7 % 12/10/23 04:38 Baso % (Auto) 0.8 % 12/10/23 04:38 Neut # (Auto) 6.17 10^3/uL (1.8-7.7) 12/10/23 04:38 Lymph # (Auto) 1.7 10^3/uL (0.8-4.8) 12/10/23 04:38 Patrick # (Auto) 0.8 10^3/uL (0.2-0.9) 12/10/23 04:38 Eos # (Auto) 0.3 10^3/uL (0.0-0.8) 12/10/23 04:38 Baso # (Auto) 0.1 10^3/uL (0.0-0.1) 12/10/23 04:38 Nucleated RBC % (auto) 0 % 12/10/23 04:38 Nucleated RBCs # 0.0 /100WBC 12/10/23 04:38 PT 14.50 SECONDS (12.1-14.9) 12/05/23 11:17 INR 1.09 (0.8-1.2) 12/05/23 11:17 Sodium 143 mmol/L (136-145) 12/10/23 04:38 Potassium 4.0 mmol/L (3.5-5.1) 12/10/23 04:38 Chloride 99 mmol/L (98-107) 12/10/23 04:38 Carbon Dioxide 36 mmol/L (22-29) H 12/10/23 04:38 Anion Gap 12.0 (5-19) 12/10/23 04:38 BUN 46 mg/dL (8-23) H 12/10/23 04:38 Creatinine 1.3 mg/dL (0.5-0.9) H 12/10/23 04:38 GFR Calculation 40.6 mL/min (90-130) L 12/10/23 04:38 Glucose 183 mg/dL (65-115) H 12/10/23 04:38 POC Glucose 261 mg/dL (70-110) H 12/10/23 12:28 Calculated Osmolality 313 mOsm/kg (285-295) H 12/10/23 04:38 Calcium 9.6 mg/dL (8.5-10.5) 12/10/23 04:38 Phosphorus 4.2 mg/dL (2.5-4.5) 12/09/23 14:09 Magnesium 2.1 mg/dL (1.7-2.3) 12/10/23 04:38 Total Bilirubin 0.3 mg/dL (0.15-1.2) 12/05/23 11:17 AST 17 U/L (0-32) 12/05/23 11:17 ALT 27 U/L (0-33) 12/05/23 11:17 Alkaline Phosphatase 96 U/L (35-105) 12/05/23 11:17 Troponin T Baseline 23 ng/L (0-10) H 12/05/23 11:17 Troponin T 120 Minute 23.79 ng/L (0-10) H 12/05/23 12:59 Delta Troponin T 0.79 ABS# (0-10) 12/05/23 12:59 Troponin T Hi Sens 6Hr 22.68 ng/L (0-10) H 12/05/23 17:07 Troponin T Hi Sens 6Hr Delta -0.32 ng/L (0-12) L 12/05/23 17:07 NT-Pro-B Natriuret Pep 476 pg/mL (0-125) H 12/10/23 04:38 Total Protein 6.5 g/dL (6.6-8.7) L 12/05/23 11:17 Albumin 3.5 g/dL (3.5-5.2) 12/05/23 11:17 Globulin 3.0 g/dL (1.3-4.6) 12/05/23 11:17 Vitals Last Vital Signs Temp 97.7 F 12/10/23 12:00 Pulse 82 12/10/23 12:00 Resp 17 12/10/23 12:00 BP 136/85 12/10/23 12:00 Pulse Ox 95 12/10/23 12:00 O2 Del Method Nasal Cannula 12/10/23 12:00 O2 Flow Rate 3 12/10/23 08:00 Discharge Plan Discharge Patient Disposition: Home Condition: Stable Prescriptions: Continued (DME) FreeStyle Lou 14 Day Sensor Kit See Rx Instructions .Route Qty: 1 12RF Rx Instructions: As directed ketoconazole 2 % cream 1 applic topical BID Qty: 30 3RF Rx Instructions: Apply to affected areas in skin folds X3 weeks then PRN for flares. hydrocodone-acetaminophen 5-325 mg tablet 1 tab PO Q6H PRN (Reason: pain (scale score 7-10)) 15 Days Qty: 30 0RF (DME) Manual wheelchair See Rx Instructions .Route .MEDSUPPLY Qty: 1 0RF Rx Instructions: As directed (DME) FreeStyle Lou 14 Day Sensor Kit See Rx Instructions .Route Qty: 1 0RF Rx Instructions: As directed (DME) FreeStyle Lou 14 Day Sensor Kit See Rx Instructions .Route Qty: 2 11RF Rx Instructions: As directed nitroglycerin [Nitrostat] 0.4 mg tablet, sublingual 0.4 mg SUBLINGUAL Q5M PRN (Reason: Chest Pain) Qty: 30 6RF Rx Instructions: do not exceed 3 doses per episode Ozempic 0.25 mg or 0.5 mg (2 mg/3 mL) pen injector 0.25 mg SUBCUT Q7D Qty: 3 3RF cyanocobalamin (vitamin B-12) [Vitamin B-12] 1,000 mcg tablet 1,000 mcg PO DAILY Qty: 30 6RF ondansetron HCl 4 mg tablet 4 mg PO Q8H PRN (Reason: nausea and vomiting) Qty: 30 3RF Lantus U-100 Insulin 100 unit/mL solution 90 unit SUBCUT BID Qty: 80 6RF clopidogrel 75 mg tablet 75 mg PO DAILY Qty: 90 3RF (DME) FreeStyle Lou 14 Day [place] Misc See Rx Instructions .Route Qty: 1 12RF Rx Instructions: As directed (DME) insulin syringe-needle U-100 [BD Insulin Syringe] 1 mL 29 gauge x 1/2 syringe See Rx Instructions .Route Qty: 100 6RF Rx Instructions: As directed to inject insulin 2-3x/day allopurinol 300 mg tablet 300 mg PO DAILY Qty: 90 3RF apixaban 5 mg tablet 5 mg PO BID Qty: 180 3RF diltiazem HCl 120 mg capsule,extended release 24hr 120 mg PO DAILY Qty: 90 3RF levothyroxine 50 mcg tablet 50 mcg PO DAILY Qty: 90 3RF metoprolol tartrate 100 mg tablet 100 mg PO BID Qty: 180 3RF potassium chloride 20 mEq tablet,ER particles/crystals 20 meq PO BID Qty: 180 3RF cholecalciferol (vitamin D3) 50 mcg (2,000 unit) capsule 50 mcg PO DAILY Qty: 30 6RF pregabalin 50 mg capsule 50 mg PO BID Qty: 60 5RF buspirone 10 mg tablet 10 mg PO TID Qty: 90 1RF Trintellix 10 mg tablet 10 mg PO DAILY Qty: 30 1RF lorazepam 1 mg tablet 1 mg PO BID PRN (Reason: anxiety) Qty: 60 1RF acetaminophen 500 mg Tablet 1,000 mg PO Q6H PRN (Reason: Pain) simvastatin 40 mg tablet 40 mg PO BEDTIME ketoconazole 2 % shampoo 1 applic topical Q3D Rx Instructions: Lather into scalp 2-3 times weekly. Allow to sit on scalp 5 minutes before rinsing. metolazone 10 mg tablet 10 mg PO DAILY Qty: 5 0RF Changed furosemide 40 mg tablet 120 mg PO BID Qty: 1 0RF Rx Instructions: Frequency change only. Discharge Orders: Discharge Order (Routine); Ordered 12/10/23 Ordered By: Rayray Peters Referrals: Betty Ayala FNP [Nurse Practitioner] - 1 week Farhat Acosta MD [Primary Care Provider] - 12/17/23 8:40 am Discharge Diet: As Directed and Cardiac Discharge Activity: Increase activity as tolerated and Oxygen as instructed Patient Instructions: Furosemide (By mouth), Heart Failure (GEN), CHF Stoplight, Opioid Safety Activity Restrictions/Additional Instructions: Please follow-up with your primary doctor in 4 to 7 days for recheck of heart failure as well as follow-up on kidney function after acute kidney injury on chronic kidney disease. Follow-up with cardiology as for reassessment of heart failure. Limit fluid intake to less than 1000 mL/day. Continue oxygen, target oxygen saturation 92%. Seek medical attention in case of worsening or new concerning symptoms. Once kidney function stabilizes, consider Entresto with your primary doctor and supervisor propellant charge loading. Similarly consider dapagliflozin once kidney function is remaining at baseline and spironolactone. Follow-up with your primary provider for continued optimization of cardiovascular structures and weight loss options. Discharge Attestations Time Spent in Discharge Care*: greater than 30 min Status at Discharge: Cognitive status at discharge: cognitively intact, Behavioral status at discharge: [facility], Quality Metrics Clinical Quality Measures [ No reported AMI, CVA or VTE this stay] Coding Level of Care Code 99852 Total time (in minutes) for Discharge: 55 Diagnoses CHF exacerbation I50.9 CAD (coronary artery disease) I25.10 Mixed hyperlipidemia E78.2 Hyperlipidemia type: mixed hyperlipidemia Persistent atrial fibrillation I48.19 Atrial fibrillation type: persistent (not longstanding) Hypercholesteremia E78.00 Type 2 diabetes mellitus E11.9 Major depressive disorder, recurrent severe without psychotic features F33.2 Generalized anxiety disorder F41.1 Atherosclerotic heart disease of [place] coronary artery with unstable angina pectoris I25.110
[2023-12-10 16:00] VITALS: BP 143/79; PULSE 57; RESP 18; TEMP 36.6; O2SAT 98
[2023-12-10 16:27] LABS: Glucose Point of Care 226 mg/dL (70-110)
== END 2023-12-10 17:40 | disposition home or self-care (01) | DRG 291 ==
LOC: ER 14:34 → MEDSURG 16:52
PROVIDERS: Admitting Provider Family Medicine; Emergency Provider Emergency Medicine; PCP Family Medicine; Visit Provider Internal Medicine
DX: I13.0 Hypertensive heart and chronic kidney disease with heart failure and stage 1 through stage 4 chronic kidney disease, or unspecified chronic kidney disease (principal); I50.43 Acute on chronic combined systolic (congestive) and diastolic (congestive) heart failure; I48.19 Other persistent atrial fibrillation; F33.2 Major depressive disorder, recurrent severe without psychotic features; N17.9 Acute kidney failure, unspecified; Z68.42 Body mass index [BMI] 45.0-49.9, adult; I25.110 Atherosclerotic heart disease of native coronary artery with unstable angina pectoris; Z95.5 Presence of coronary angioplasty implant and graft; E78.5 Hyperlipidemia, unspecified; E78.00 Pure hypercholesterolemia, unspecified; E11.22 Type 2 diabetes mellitus with diabetic chronic kidney disease; F41.1 Generalized anxiety disorder; N18.9 Chronic kidney disease, unspecified; Z99.81 Dependence on supplemental oxygen; E03.9 Hypothyroidism, unspecified; G89.29 Other chronic pain; Z79.01 Long term (current) use of anticoagulants; Z79.02 Long term (current) use of antithrombotics/antiplatelets; Z79.4 Long term (current) use of insulin; Z79.85 Long-term (current) use of injectable non-insulin antidiabetic drugs; E66.01 Morbid (severe) obesity due to excess calories
CPT/HCPCS: 36415; 36416; 71045; 80048; 80053; 82962; 83735; 83880; 84100; 84484; 85025; 85610; 93005; 96372; 96374; 99285; J1815; J1940

== ENCOUNTER → 2023-12-17 09:10 | Outpatient (BNVA) | payer MEDICARE, MEDICAID, SELFPAY | PROVIDERS: PCP Family Medicine; Visit Provider Family Medicine | DX: Z51.81 Encounter for therapeutic drug level monitoring (principal) | CPT/HCPCS: 80048; 85025 ==

== ENCOUNTER → 2024-01-14 14:40 | Outpatient (BNVA) | payer MEDICARE, MEDICAID, SELFPAY | PROVIDERS: PCP Family Medicine; Visit Provider Nurse Practitioner Family | DX: I25.10 Atherosclerotic heart disease of native coronary artery without angina pectoris (principal); I48.19 Other persistent atrial fibrillation; I51.9 Heart disease, unspecified | CPT/HCPCS: 36415; 80048; 83880 ==

== ENCOUNTER 2024-01-23 06:17 | Outpatient (CLI) | payer MEDICARE, MEDICAID, SELFPAY ==
[2024-01-23 06:47] VITALS: BMI 46.0
--- NOTE | 2024-01-23 06:50 | NMCV_ITS ---
NM [place] perf SPECT r/s* [id number] Shauna Sena Age: 68 Gender: F : 1955 Exam Date: 01/23/2024 06:53 Ordering Phys: Sherman Chapman MD ([email or web address]) Technologist: HAVEN Lopez Exam Location: [facility] Indications: CP STRESS TEST [facility] IMAGE PROTOCOL Rest/Stress 1 Lexiscan Day Radiopharmaceutical Dose (mCi) Administration Site Administered by Rest: Tc-99m 10.9 IV HAVEN Lopez Sestamibi Stress:Tc-99m 32.8 IV HAVEN Lopez Sestamibi Rest: 23-Jan-2024 60 Discovery 630 Stress: 23-Jan-2024 30 Discovery 630 0.4mg Lexiscan. Supine position only as patient was unable to lay prone. SPECT RESULTS Technical Quality: Good Raw Data Analysis: Breast attenuation, , Soft tissue attenuation Image Corrections: No attenuation or motion correction applied Summed Stress Score: 17 Summed Rest Score: 11 Summed Difference Score: 7 PERFUSION FINDINGS Large area of fixed perfusion defect is seen in inferior wall. This is consistent with large area of prior infarct in RCA territory. Large area of severe intensity, partially reversible perfusion defect is seen in lateral and inferolateral [place]. This is consistent with large area of prior infarct with significant [place]-infarct ischemia seen in left circumflex artery territory FUNCTIONAL RESULTS (calculated via Gated SPECT) Stress Image LV EF (%): 50 Stress EDV (mL):116 TID: 0.88 Stress ESV (mL):58 FUNCTIONAL FINDINGS: There is borderline normal left ventricular systolic function. IMPRESSIONS 1. Large sized area of prior infarct with significant [place]-infarct ischemia seen in left circumflex artery territory. 2. Large sized area of prior infarct in RCA territory. 3. LV systolic function is borderline normal with EF of 50% Seth Santillan MD (Electronically Signed) Final Date: 25 January 2024 14:50 S
--- NOTE | 2024-01-23 06:50 | ECG_ITS ---
[facility] Test Date: 2024-01-23 Pat Name: Shauna Sena Department: Room: Gender: Female Consumer Affairs Specialist: : 1955 Requested By: Sherman Chapman Order Number: [id number] Mcginnis MD: Seth Santillan M.D. Interpretive Statements NAME OF STUDY: LEXISCAN SESTAMIBI STRESS TEST INDICATION: [CP ] Procedure: At the baseline, the blood pressure was 132/98 mmHg with a heart rate of 65 bpm. The electrocardiogram showed atrial fibrillation, normal axis with normal ST and T's. The Lexiscan was infused over a period of 20 seconds. A total of 0.4 mg of Lexiscan was infused. The stress phase was continued for a total of 5 minutes. Heart rate was at the end of stress phase was 76 bpm and a blood pressure of 132/92 mmHg. The EKG at the peak infusion revealed atrial fibrillation with no significant ST-T wave changes. Sestamibi was injected 20 seconds after the Lexiscan infusion. Blood pressure at the end of recovery phase was 134/87 mmHg with a heart rate of 72 bpm. Conclusion: 1. Normal EKG response to Lexiscan infusion 2. No Lexiscan induced chest pain or cardiac arrhythmia. 3. Normal blood pressure and heart rate response. 4. Sestamibi/sestamibi perfusion scan pending; see separate report. Electronically Signed On 01-27-2024 21:21:53 CDT by Seth Santillan M.D. [id number]
[2024-01-23] MEDS: regadenoson 0.4 Mg/5 ml Syringe IVP (08:30)
[2024-01-23 08:48] VITALS: BP 141/90; PULSE 76
== END 2024-01-23 06:18 | disposition home or self-care (01) ==
PROVIDERS: PCP Family Medicine; Visit Provider Internal Medicine Cardiovascular Disease
DX: R07.9 Chest pain, unspecified (principal); I25.9 Chronic ischemic heart disease, unspecified
CPT/HCPCS: 36415; 78452; 93017; 96374; A9500; J2785

== ENCOUNTER 2024-01-30 21:49 | Observation (INO) | payer MEDICARE, MEDICAID, SELFPAY ==
[2024-01-30 21:52] VITALS: BP 155/76; PULSE 76; RESP 26; TEMP 37.3; O2SAT 92; BMI 48.6
--- NOTE | 2024-01-30 21:55 | XRR_ITS ---
PROCEDURE INFORMATION: Exam: XR Chest Exam date and time: 01/30/2024 10:08 PM Age: 68 years old Clinical indication: Shortness of breath; Prior surgery; Surgery date: 6+ months; Surgery type: Lumpectomy/stents TECHNIQUE: Imaging protocol: Radiologic exam of the chest. Views: 1 view. COMPARISON: CR XR chest 1V portable [id number] 12/05/2023 11:00 AM FINDINGS: Lungs: Central vascular prominence without overt edema. Retrocardiac opacities may represent atelectasis or consolidation. Pleural spaces: Unremarkable. No pleural effusion. No pneumothorax. Heart/Mediastinum: Cardiomegaly. Bones/joints: Unremarkable. XR/XR chest 1V portable [id number] IMPRESSION: Central vascular prominence without overt edema. Cardiomegaly. Retrocardiac opacities may represent atelectasis or consolidation.
[2024-01-30 21:59] VITALS: PULSE 77; RESP 25; O2SAT 95
--- NOTE | 2024-01-30 22:03 | ECG_ITS ---
[facility] Test Date: 2024-01-30 Pat Name: Shauna Sena Department: Room: Gender: Female Assistant Activities Director: : 1955 Requested By: Rianna Gibson Order Number: [id number] Rahel MD: Seth Santillan M.D. Measurements Intervals [place] Rate: 75 P: 55 NH: 289 QRS: 33 QRSD: 120 T: 29 QT: 400 QTc: 449 Interpretive Statements SINUS RHYTHM WITH FIRST DEGREE AV BLOCK INDETERMINATE AXIS MODERATE INTRAVENTRICULAR CONDUCTION DELAY [110+ ms QRS DURATION] MODERATE ST DEPRESSION [0.05+ mV ST DEPRESSION] Compared to ECG 12/05/2023 18:38:34 First degree AV block now present Indeterminate axis now present Intraventricular conduction delay now present ST (T wave) deviation now present Atrial fibrillation no longer present Ventricular premature complex(es) no longer present Aberrant conduction of supraventricular beat(s) no longer present Electronically Signed On 01-31-2024 8:05:45 CDT by Seth Santillan M.D. [id number]
[2024-01-30 22:13] LABS: ABG PCO2 40.1 mmHg (35-45); ABG PH Result 7.42 (7.35-7.45); Alveolar-Arterial Oxygen Gradi 4.6 mmHg (5-10); Arterial Blood Gas Hematocrit 44.7 % (37-47); Base Excess ABG 1.7 mmol/L (-2.0-2.0); Blood Gas Allen Test Pos; Blood Gas Operator Identificat CL; Blood Gas Sample Site Radial, right; Blood Gas Sample Type Arterial; Carboxyhemoglobin 1.3 %THgb (0.4-20.1); HCO3 ABG 26.3 mmol/L (22-26); HGB O2 Sat 92.1 % (95-100); Ionized Calcium Level - ABG 1.2 mmol/L (1.1-1.4); Methemoglobin 0.2 % (0.4-1.5); Oxygen Device NC; Oxygen Saturation ABG 93.5; PO2 ABG 64.4 mmHg (80.0-100.0); Potassium Level - ABG 3.2 mmol/L (3.5-5.0); Total Hemoglobin 14.6 g/dL (12-16)
--- NOTE | 2024-01-30 22:28 | W.ED.SOB ---
HPI - SOB/Dyspnea General: Chief Complaint: Shortness of Breath/Dyspnea Stated Complaint: FALL/SOB Time Seen by Provider: 01/30/24 21:52 History of Present Illness: HPI Narrative: 68-year-old female with history of COPD, chronic hypoxemic respiratory failure on 2 to 3 L nasal cannula at all times, type 2 diabetes mellitus chronic pain syndrome, hypertension, coronary artery disease, hyperlipidemia and morbid obesity who presents to the emergency room by ambulance after having a fall. Says she has not been feeling well for couple of days now. She has had fevers at home up to about 101 she says. She has been much more weak. She has had some nausea and some diarrhea. No chest pain. No abdominal pain. No focal motor deficits. Family thinks she is somewhat confused at times. She had a fall. She did not hit her head. She is having some mild right shoulder and hip pain. She could not get to her oxygen and managed to crawl to the phone and call ambulance. Said when they arrived she was off her oxygen and her sats were in the low 70s. She got up into the 80s on 3 L. When she was receiving her updrafts she improves more. She received Solu-Medrol and 4 updrafts in the ambulance. Related Data Home Medications Medication Instructions Recorded Confirmed acetaminophen 500 mg tablet 1,000 mg PO Q6H PRN Pain 05/11/22 01/14/24 ketoconazole 2 % shampoo 1 applic topical Q3D 04/04/23 01/14/24 simvastatin 40 mg tablet 40 mg PO BEDTIME 12/05/23 01/14/24 Previous Rx's Medication Instructions Recorded flash glucose sensor (FreeStyle #1 ea 01/27/22 Lou 14 Day Sensor kit) cyanocobalamin (vitamin B-12) 1,000 mcg PO DAILY #30 tabs 02/05/22 1,000 mcg tablet (Vitamin B-12) ondansetron HCl 4 mg tablet 4 mg PO Q8H PRN nausea and 07/28/22 vomiting #30 tabs flash glucose sensor (FreeStyle #1 ea 08/07/22 Lou 14 Day Sensor kit) ketoconazole 2 % topical cream 1 applic topical BID #30 grams 09/06/22 flash glucose sensor (FreeStyle #2 ea 03/27/23 Lou 14 Day Sensor kit) clopidogrel 75 mg tablet 75 mg PO DAILY #90 tabs 04/02/23 flash glucose scanning reader #1 ea 05/14/23 (FreeStyle Lou 14 Day [place]) nitroglycerin 0.4 mg sublingual 0.4 mg sublingual Q5M PRN Chest 05/24/23 tablet (Nitrostat) Pain #30 tabs insulin syringe-needle U-100 1 mL #100 ea 06/12/23 29 gauge x 1/2 (BD Insulin Syringe) metolazone 10 mg tablet 10 mg PO DAILY #5 tabs 08/14/23 hydrocodone 5 mg-acetaminophen 325 1 tab PO Q6H PRN pain (scale score 08/20/23 mg tablet 7-10) 15 days #30 tabs semaglutide 0.25 mg or 0.5 mg (2 0.25 mg (0.368 mL) SUBCUT Q7D #3 mL 10/11/23 mg/3 mL) subcutaneous pen injector (Ozempic) allopurinol 300 mg tablet 300 mg PO DAILY #90 tabs 10/22/23 apixaban 5 mg tablet 5 mg PO BID #180 tabs 10/22/23 diltiazem HCl 120 mg 120 mg PO DAILY #90 caps 10/22/23 capsule,extended release 24 hr levothyroxine 50 mcg tablet 50 mcg PO DAILY #90 tabs 10/22/23 metoprolol tartrate 100 mg tablet 100 mg PO BID #180 tabs 10/22/23 potassium chloride 20 mEq 20 meq PO BID #180 tabs 10/22/23 tablet,extended release(part/cryst) cholecalciferol (vitamin D3) 50 50 mcg PO DAILY #30 caps 10/30/23 mcg (2,000 unit) capsule pregabalin 50 mg capsule 50 mg PO BID #60 caps 11/06/23 Manual wheelchair #1 ea 12/05/23 furosemide 40 mg tablet 120 mg (3 x 40 mg) PO BID #1 tab 12/10/23 lorazepam 1 mg tablet 1 mg PO BID PRN anxiety #60 tabs 12/13/23 insulin glargine 100 unit/mL 90 unit (0.9 mL) SUBCUT BID #80 mL 12/17/23 subcutaneous solution (Lantus U-100 Insulin) triamcinolone acetonide 0.1 % 1 applic topical BID #454 grams 12/17/23 topical ointment buspirone 10 mg tablet 10 mg PO TID #90 tabs 01/10/24 vortioxetine 10 mg tablet 10 mg PO DAILY #30 tabs 01/10/24 (Trintellix) acetazolamide 125 mg tablet 125 mg PO DAILY #14 tabs 01/22/24 diltiazem HCl 120 mg 120 mg PO DAILY #30 tabs 01/28/24 tablet,extended release 24 hr Allergies Allergy/AdvReac Type Severity Reaction Status Date / Time morphine Allergy Severe Quit Verified 01/30/24 21:59 breathing amiodarone Allergy ALGY-Anaphy Verified 01/30/24 21:59 laxis shellfish derived AdvReac Severe Hives & Verified 01/30/24 21:59 throat swells meperidine [From Demerol] AdvReac Intermediate Made N & V Verified 01/30/24 21:59 Penicillins AdvReac Intermediate RAsh Verified 01/30/24 21:59 Review of Systems Narrative: Constitutional symptoms: Negative except as documented in HPI. Skin symptoms: Negative except as documented in HPI. Eye symptoms: Negative except as documented in HPI. ENMT symptoms: Negative except as documented in HPI. Respiratory symptoms: Negative except as documented in HPI. Cardiovascular symptoms: Negative except as documented in HPI. Gastrointestinal symptoms: Negative except as documented in HPI. Genitourinary symptoms: Negative except as documented in HPI. Musculoskeletal symptoms: Negative except as documented in HPI. Neurologic symptoms: Negative except as documented in HPI. Psychiatric symptoms: Negative except as documented in HPI. Endocrine symptoms: Negative except as documented in HPI. [facility] PFSH: Medical History Type 2 diabetes mellitus MRSA (methicillin resistant staph aureus) culture positive Influenza A Community acquired pneumonia Vitamin B12 deficiency Diabetes type 2, uncontrolled Psychiatric care Polypharmacy Gout Hyperlipidemia Hypothyroidism Fibromyalgia Depression CKD (chronic kidney disease) Chronic respiratory failure Amiodarone pulmonary toxicity Atrial fibrillation Hypercholesteremia HTN (hypertension) CAD (coronary artery disease) Last echocardiogram 08/06 with EF of 50% Stents x 3 - last in 02/2023 Major depressive disorder, recurrent severe without psychotic features Chronic pain She reports taking pain medicines and muscle relaxers for a recent back injury; she has chronic left leg pain. Surgical History History of incision and drainage Right breast abscess History of coronary artery stent placement H/O left knee surgery Hx of cholecystectomy History of hysterectomy partial H/O section History of back surgery H/O eye surgery History of carpal tunnel release H/O cardiac radiofrequency ablation Family History Mother Cancer breast Stroke Brother Heart disease Asthma Cancer prostate Sister Heart disease Social History Smoking and tobacco/nicotine status: never used tobacco/nicotine Alcohol intake: never Substance/Drug Use: never Housing: Other Details: Currently with her family Physical Exam Narrative: EXAM NARRATIVE: General: Alert, no acute distress. Skin: Warm, dry. Head: Normocephalic, atraumatic. Neck: Supple, trachea midline. Eye: Extraocular movements are intact. Ears, nose, mouth and throat: Oral mucosa moist. Cardiovascular: Regular rate and rhythm, Normal peripheral perfusion. Respiratory: coarse, scattered wheeze, mild increased wob. tachypnea, breath sounds are equal, Symmetrical chest wall expansion. Gastrointestinal: Soft, Nontender, Non distended, Normal bowel sounds. Musculoskeletal: Normal ROM, no deformity. Neurological: Alert and oriented to person, place, time, and situation, No focal neurological deficit observed. Psychiatric: Cooperative, appropriate mood & affect. Course Vital Signs: Vital signs: Vital Signs Temperature 99.2 F 01/30/24 21:52 Pulse Rate 76 01/30/24 21:52 Respiratory Rate 26 H 01/30/24 21:52 Blood Pressure 155/76 01/30/24 21:52 Pulse Oximetry 92 01/30/24 21:52 Oxygen Delivery Me thod Aerosol Mask 01/30/24 21:52 MDM - SOB/Dyspnea Medical Decision Making Differential diagnosis for patient with shortness of breath includes but is not limited to and based on the above HPI, review of systems and physical exam: Pneumonia. Bronchitis. Asthma or COPD with acute exacerbation. Acute coronary syndrome / RI. Pulmonary embolism. Anxiety. Congestive heart failure. Viral infections including influenza and Covid-19. Atrial fibrillation. Anxiety. Pleural effusion. Pneumothorax. Workup: Lab work, chest X-ray and EKG ordered to evaluate, rule in and rule out above pathologies EKG: Time 2203. Rate 75. Normal sinus rhythm, No ST-T changes, no ectopy, first-degree AV block, This was reviewed and interpreted by myself the ER physician at 2205 Repeat EKG: Time 2348. Rate 76. Normal sinus rhythm, No ST-T changes, no ectopy, first-degree AV block, This was reviewed and interpreted by myself the ER physician at 2352. No changes from previous. Chest x-ray: Cardiomegaly, retrocardiac opacities which may be a pneumonia. Patient has symptoms of pneumonia so treating her as such. This was reviewed and interpreted by myself the emergency room physician. I also reviewed the radiology report. X-ray of the right hip: No obvious acute fractures. This was reviewed and interpreted by myself the emergency room physician. I also reviewed the radiology report. X-ray of the right shoulder: No obvious acute fractures or dislocations. This was reviewed and interpreted by myself the emergency room physician. I also reviewed the radiology report. Lab Review: Laboratory results were reviewed and interpreted by myself the emergency room physician. White count is 10. Hemoglobin 14. BUN/creatinine of 32 and 1.7 slightly above her baseline. proBNP is not elevated. Liver enzymes are normal. Lactic acid is negative. Respiratory panel is negative. AB.4 /. This is on 5 L nasal cannula. No CO2 retention. I reviewed the patient's medical record. Reexamination: Patient remains somewhat short of breath. Still has some mild wheeze. She is increased oxygen requirement. Family think she seems somewhat confused. She is requiring help with at least 1-2 people just to get to the bedside commode. At which time she does drop her O2 sats. Assessment and plan: Pneumonia COPD with acute exacerbation Acute on chronic hypoxemic respiratory failure Weakness Fall Right hip pain ?IV doxycycline, IV Solu-Medrol and 4 updrafts have been given. Increased oxygen requirements. -I discussed the patient with the hospitalist on-call who is admitting the patient. - Discussed findings and plan with patient. Answered any questions. - All laboratory values were reviewed and interpreted personally by myself, the ER physician - All imaging was reviewed and interpreted personally by myself, the ER physician. - Evaluation and treatment of this problem were appropriate in the emergency setting Critical care -I spent a total of >35 minutes of critical care time managing the patient, independent of any other practitioner. -The time involved in the performance of separately reportable procedures was not counted towards critical care time. Lab Data 01/30/24 22:16 01/30/24 22:16 Labs/Radiology: Radiology Impressions Chest X-Ray 01/30/24 21:55 IMPRESSION: Central vascular prominence without overt edema. Cardiomegaly. Retrocardiac opacities may represent atelectasis or consolidation. Laboratory Results WBC 10.01 10^3/uL (3.29-11.43) 01/30/24 22:16 RBC 5.13 10^6/uL (3.85-5.65) 01/30/24 22:16 Hgb 14.10 g/dL (11.27-16.99) 01/30/24 22:16 Hct 45.7 % (36-47) 01/30/24 22:16 MCV 89.1 fl (85-98) 01/30/24 22:16 MCH 27.5 pg (27-33) 01/30/24 22:16 MCHC 30.9 g/dL (30-55) 01/30/24 22:16 RDW 16.7 % (12.1-15.1) H 01/30/24 22:16 Plt Count 212 10^3/cmm (157-399) 01/30/24 22:16 MPV 10.7 fL (7.4-10.4) H 01/30/24 22:16 Neut % (Auto) 70.8 % 01/30/24 22:16 Lymph % (Auto) 14.6 % 01/30/24 22:16 Burt % (Auto) 11.8 % 01/30/24 22:16 Eos % (Auto) 1.4 % 01/30/24 22:16 Baso % (Auto) 0.6 % 01/30/24 22:16 Neut # (Auto) 7.09 10^3/uL (1.8-7.7) 01/30/24 22:16 Lymph # (Auto) 1.5 10^3/uL (0.8-4.8) 01/30/24 22:16 Burt # (Auto) 1.2 10^3/uL (0.2-0.9) H 01/30/24 22:16 Eos # (Auto) 0.1 10^3/uL (0.0-0.8) 01/30/24 22:16 Baso # (Auto) 0.1 10^3/uL (0.0-0.1) 01/30/24 22:16 Nucleated RBC % (auto) 0 % 01/30/24 22:16 Nucleated RBCs # 0.0 /100WBC 01/30/24 22:16 Specimen Type Arterial 01/30/24 22:08 Sample Site Radial, right 01/30/24 22:08 ABG pH 7.42 (7.35-7.45) 01/30/24 22:08 ABG pCO2 40.1 mmHg (35-45) 01/30/24 22:08 ABG pO2 64.4 mmHg (80.0-100.0) L 01/30/24 22:08 ABG HCO3 26.3 mmol/L (22-26) H 01/30/24 22:08 ABG O2 Saturation 93.5 01/30/24 22:08 ABG Base Excess 1.7 mmol/L (-2.0-2.0) 01/30/24 22:08 Hipolito Test Pos 01/30/24 22:08 A-a O2 Gradient 4.6 mmHg (5-10) L 01/30/24 22:08 Hematocrit 44.7 % (37-47) 01/30/24 22:08 Hgb O2 Saturation 92.1 % (95-100) L 01/30/24 22:08 Carboxyhemoglobin 1.3 %THgb (0.4-20.1) 01/30/24 22:08 Methemoglobin 0.2 % (0.4-1.5) L 01/30/24 22:08 Total Hemoglobin 14.6 g/dL (12-16) 01/30/24 22:08 Sodium 140.0 mmol/L (131-143) 01/30/24 22:08 Potassium 3.2 mmol/L (3.5-5.0) L 01/30/24 22:08 Glucose 84.0 mg/dL (70-115) 01/30/24 22:08 Ionized Calcium 1.2 mmol/L (1.1-1.4) 01/30/24 22:08 O2 Delivery Device Nc 01/30/24 22:08 O2 Liters/Min 4.0 % 01/30/24 22:08 [employer] ID Cl 01/30/24 22:08 Sodium 142 mmol/L (136-145) 01/30/24 22:16 Potassium 3.4 mmol/L (3.5-5.1) L 01/30/24 22:16 Chloride 102 mmol/L (98-107) 01/30/24 22:16 Carbon Dioxide 25 mmol/L (22-29) 01/30/24 22:16 Anion Gap 18.4 (5-19) 01/30/24 22:16 BUN 32 mg/dL (8-23) H 01/30/24 22:16 Creatinine 1.7 mg/dL (0.5-0.9) H 01/30/24 22:16 GFR Calculation 29.8 mL/min (90-130) L 01/30/24 22:16 Glucose 81 mg/dL (65-115) 01/30/24 22:16 Calculated Osmolality 300 mOsm/kg (285-295) H 01/30/24 22:16 Lactic Acid 1.1 mmol/L (0.5-2.2) 01/30/24 22:16 Calcium 8.6 mg/dL (8.5-10.5) 01/30/24 22:16 Total Bilirubin 0.4 mg/dL (0.15-1.2) 01/30/24 22:16 AST 14 U/L (0-32) 01/30/24 22:16 ALT 26 U/L (0-33) 01/30/24 22:16 Alkaline Phosphatase 91 U/L (35-105) 01/30/24 22:16 Troponin T Baseline 38 ng/L (0-10) H 01/30/24 22:16 Troponin T 120 Minute 37.03 ng/L (0-10) H 01/31/24 00:04 Delta Troponin T -0.97 ABS# (0-10) L 01/31/24 00:04 C-Reactive Protein 38.6 mg/L (0.0-4.9) H 01/30/24 22:16 NT-Pro-B Natriuret Pep 691 pg/mL (0-125) H 01/30/24 22:16 Total Protein 6.0 g/dL (6.6-8.7) L 01/30/24 22:16 Albumin 3.8 g/dL (3.5-5.2) 01/30/24 22:16 Globulin 2.2 g/dL (1.3-4.6) 01/30/24 22:16 Procalcitonin 0.13 ng/mL (0-0.5) 01/30/24 22:16 Adenovirus (PCR) Not detected (NOT DETECT) 01/30/24 22:14 C. pneumoniae DNA (PCR) Not detected (NOT DETECT) 01/30/24 22:14 Coronavirus 229E (PCR) Not detected (NOT DETECT) 01/30/24 22:14 Human Metapneumovir PCR Not detected (NOT DETECT) 01/30/24 22:14 Influenza A (H1) PCR Not detected (NOT DETECT) 01/30/24 22:14 Influ A (H1/09) PCR Not detected (NOT DETECT) 01/30/24 22:14 Influenza A (H3) PCR Not detected (NOT DETECT) 01/30/24 22:14 Influenza Type A (PCR) Not detected (NOT DETECT) 01/30/24 22:14 Influenza Type B (PCR) Not detected (NOT DETECT) 01/30/24 22:14 M. pneumoniae (PCR) Not detected (NOT DETECT) 01/30/24 22:14 Parainfluenza 1 (PCR) Not detected (NOT DETECT) 01/30/24 22:14 Parainfluenza 2 (PCR) Not detected (NOT DETECT) 01/30/24 22:14 Parainfluenza 3 (PCR) Not detected (NOT DETECT) 01/30/24 22:14 Parainfluenza 4 (PCR) Not detected (NOT DETECT) 01/30/24 22:14 RSV Type A (PCR) Not detected (NOT DETECT) 01/30/24 22:14 RSV Type B (PCR) Not detected (NOT DETECT) 01/30/24 22:14 Entero/Rhino (PCR) Not detected (NOT DETECT) 01/30/24 22:14 SARS-CoV-2 (PCR) Not detected (NOT DETECT) 01/30/24 22:14 All radiology interpretation(s) finalized by discharge Discharge Plan Discharge Patient Disposition: Placed in Observation Clinical Impression: Pneumonia, Acute on chronic hypoxic respiratory failure, COPD with acute exacerbation, Weakness, Fall, Acute hip pain Coding Level of Care Code ED Hop Picker for Gerson Morgan
[2024-01-30 22:33] LABS: Basophils # 0.1 10^3/uL (0.0-0.1); Basophils % 0.6 %; Eosinophils # 0.1 10^3/uL (0.0-0.8); Eosinophils % 1.4 %; Hematocrit 45.7 % (36-47); Lymphocytes # 1.5 10^3/uL (0.8-4.8); Lymphocytes % 14.6 %; Mean Corpuscular HGB Conc 30.9 g/dL (30-55); Mean Corpuscular Hemoglobin 27.5 pg (27-33); Mean Corpuscular Volume 89.1 fl (85-98); Mean Platelet Volume 10.7 fL (7.4-10.4); Monocytes # 1.2 10^3/uL (0.2-0.9); Monocytes % 11.8 %; Neutrophils # 7.09 10^3/uL (1.8-7.7); Neutrophils % 70.8 %; Nucleated Red Blood Cells % 0 %; Platelet Count 212 10^3/cmm (157-399); Red Blood Count 5.13 10^6/uL (3.85-5.65); Red Cell Distribution Width 16.7 % (12.1-15.1); White Blood Count 10.01 10^3/uL (3.29-11.43)
[2024-01-30 22:57] LABS: Lactic Sepsis W/Reflex 1.1 mmol/L (0.5-2.2)
[2024-01-30 22:59] VITALS: PULSE 78; RESP 13; O2SAT 93
[2024-01-30 22:59] LABS: Troponin(5th) Baseline 38 ng/L (0-10)
[2024-01-30 23:08] LABS: NT Pro B Type Natriuretic Pept 691 pg/mL (0-125); Procalcitonin 0.13 ng/mL (0-0.5)
[2024-01-30 23:19] LABS: Alanine Aminotransferase 26 U/L (0-33); Albumin Level 3.8 g/dL (3.5-5.2); Alkaline Phosphatase 91 U/L (35-105); Anion Gap 18.4 (5-19); Aspartate Amino Transferase 14 U/L (0-32); Blood Urea Nitrogen 32 mg/dL (8-23); C Reactive Protein 38.6 mg/L (0.0-4.9); Calcium 8.6 mg/dL (8.5-10.5); Carbon Dioxide 25 mmol/L (22-29); Chloride 102 mmol/L (98-107); Creatinine Clr Calc Pharmacy 47.5306; Globulin 2.2 g/dL (1.3-4.6); Glomerular Filtration Rate 29.8 mL/min (90-130); Glucose 81 mg/dL (65-115); Osmolality Calculated 300 mOsm/kg (285-295); Potassium 3.4 mmol/L (3.5-5.1); Sodium 142 mmol/L (136-145); Total Bilirubin 0.4 mg/dL (0.15-1.2)
--- NOTE | 2024-01-30 23:29 | XRR_ITS ---
PROCEDURE INFORMATION: Exam: XR Right Shoulder Exam date and time: 01/30/2024 11:49 PM Age: 68 years old Clinical indication: Injury or trauma; Fall; Blunt trauma (contusions or hematomas); Shoulder; Right; Additional info: Fall, shoulder pain TECHNIQUE: Imaging protocol: Radiologic exam of the right shoulder. Views: 2 or more views. COMPARISON: CR (CHEST, ) 01/30/2024 10:08 PM FINDINGS: Bones/joints: Moderate degenerative disease of the right acromioclavicular joint. Chondrocalcinosis of the right glenohumeral joint. No acute fracture or dislocation. Right rotator cuff calcific tendinosis. Lungs: Airspace opacities in the right lower lung zone. Soft tissues: Normal. XR/XR shoulder RT min 2V* [id number] IMPRESSION: No acute fracture or dislocation.
--- NOTE | 2024-01-30 23:30 | XRR_ITS ---
PROCEDURE INFORMATION: Exam: XR Right Hip Exam date and time: 01/30/2024 11:53 PM Age: 68 years old Clinical indication: Pain and injury or trauma; Fall; Blunt trauma (contusions or hematomas); Hip pain; Right hip TECHNIQUE: Imaging protocol: Radiologic exam of the right hip. Views: 2 or 3 views hip with pelvis when performed. COMPARISON: CT abdomen pelvis wo con [id number] 08/15/2023 7:02 PM FINDINGS: Bones/joints: Mild degenerative disease of the right sacroiliac joint and right hip joint. Traction enthesophytes of the right greater trochanter. Mild degenerative disease of the symphysis pubis. Soft tissues: Unremarkable. Vasculature: Vascular calcifications. XR/XR hip RT 2-3V wo/w pel* [id number] IMPRESSION: No acute fracture or dislocation.
--- NOTE | 2024-01-30 23:56 | ECG_ITS ---
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 Measurements Intervals [place] Rate: 76 P: 65 UT: 276 QRS: 40 QRSD: 120 T: 56 QT: 405 QTc: 457 Interpretive Statements SINUS RHYTHM WITH FIRST DEGREE AV BLOCK MODERATE INTRAVENTRICULAR CONDUCTION DELAY [110+ ms QRS DURATION] NONSPECIFIC ST & T-WAVE ABNORMALITY Compared to ECG 01/30/2024 22:03:33 T-wave abnormality now present Indeterminate axis no longer present ST (T wave) deviation no longer present Electronically Signed On 01-31-2024 11:05:37 CDT by Seth Santillan M.D. [email or web address]
[2024-01-30 23:59] VITALS: PULSE 77; RESP 13; O2SAT 92
[2024-01-31] VITALS (17 sets, daily range): BP systolic 115–164; BP diastolic 72–84; PULSE 62–87; RESP 16–24; TEMP 36.4–37; O2SAT 91–97; BMI 48.6
--- NOTE | 2024-01-31 00:24 | PM.HP ---
Providers/Chief Complaint Primary Care Provider: Farhat Acosta MD Chief Complaint: FALL/SOB History of Present Illness Shauna Sena is a 68 year old female with a past medical history significant for COPD with chronic hypoxic respiratory failure on 3 L baseline, heart failure with preserved ejection fraction on high-dose Lasix and metolazone, coronary artery disease, type 2 diabetes mellitus, morbid obesity, hypertension, dyslipidemia, and multiple other comorbidities who presents to the emergency department with diffuse weakness x 2 to 3 days. Endorses associated shortness of breath, fevers, chills, fatigue, nausea, confusion, and myalgias. Exertion worsens symptoms. Rest improves symptoms. She also reports she was so weak that she rolled out of bed unintentionally. She does endorse some shoulder and hip discomfort. She reports she lives alone and is having difficulty caring for self due to the weakness. In the emergency department, patient was found to require increased level of oxygen support. Per EMS report, she was found to be in the mid 80s on her SpO2 on her home oxygen at 3 L. She received Solu-Medrol en route. In the emergency department, patient was also found to be tachypneic. Review of Systems Narrative: A complete review of systems was obtained and is negative except as stated in HPI. Medications/Allergies Home Medications Medication Instructions Recorded Confirmed Last Taken Type flash glucose sensor (FreeStyle #1 ea 01/27/22 01/14/24 Unknown Rx Lou 14 Day Sensor kit) cyanocobalamin (vitamin B-12) 1,000 mcg PO DAILY #30 tabs 02/05/22 01/14/24 12/05/23 Rx 1,000 mcg tablet (Vitamin B-12) acetaminophen 500 mg tablet 1,000 mg PO Q6H PRN Pain 05/11/22 01/14/24 03/05/23 History ondansetron HCl 4 mg tablet 4 mg PO Q8H PRN nausea and 07/28/22 01/14/24 Unknown Rx vomiting #30 tabs flash glucose sensor (FreeStyle #1 ea 08/07/22 01/14/24 Unknown Rx Lou 14 Day Sensor kit) ketoconazole 2 % topical cream 1 applic topical BID #30 grams 09/06/22 01/14/24 Unknown Rx flash glucose sensor (FreeStyle #2 ea 03/27/23 01/14/24 Unknown Rx Lou 14 Day Sensor kit) clopidogrel 75 mg tablet 75 mg PO DAILY #90 tabs 04/02/23 01/14/24 12/05/23 Rx ketoconazole 2 % shampoo 1 applic topical Q3D 04/04/23 01/14/24 Unknown History flash glucose scanning reader #1 ea 05/14/23 01/14/24 Unknown Rx (FreeStyle Lou 14 Day [place]) nitroglycerin 0.4 mg sublingual 0.4 mg sublingual Q5M PRN Chest 05/24/23 01/14/24 Unknown Rx tablet (Nitrostat) Pain #30 tabs insulin syringe-needle U-100 1 mL #100 ea 06/12/23 01/14/24 Unknown Rx 29 gauge x 1/2 (BD Insulin Syringe) metolazone 10 mg tablet 10 mg PO DAILY #5 tabs 08/14/23 01/14/24 12/05/23 Rx hydrocodone 5 mg-acetaminophen 325 1 tab PO Q6H PRN pain (scale score 08/20/23 01/14/24 Unknown Rx mg tablet 7-10) 15 days #30 tabs semaglutide 0.25 mg or 0.5 mg (2 0.25 mg (0.368 mL) SUBCUT Q7D #3 mL 10/11/23 01/14/24 12/03/23 Rx mg/3 mL) subcutaneous pen injector (Ozempic) allopurinol 300 mg tablet 300 mg PO DAILY #90 tabs 10/22/23 01/14/24 12/05/23 Rx apixaban 5 mg tablet 5 mg PO BID #180 tabs 10/22/23 01/14/24 12/05/23 Rx diltiazem HCl 120 mg 120 mg PO DAILY #90 caps 10/22/23 01/14/24 12/05/23 Rx capsule,extended release 24 hr levothyroxine 50 mcg tablet 50 mcg PO DAILY #90 tabs 10/22/23 01/14/24 12/05/23 Rx metoprolol tartrate 100 mg tablet 100 mg PO BID #180 tabs 10/22/23 01/14/24 12/05/23 Rx potassium chloride 20 mEq 20 meq PO BID #180 tabs 10/22/23 01/14/24 12/05/23 Rx tablet,extended release(part/cryst) cholecalciferol (vitamin D3) 50 50 mcg PO DAILY #30 caps 10/30/23 01/14/24 12/05/23 Rx mcg (2,000 unit) capsule pregabalin 50 mg capsule 50 mg PO BID #60 caps 11/06/23 01/14/24 12/05/23 Rx Manual wheelchair #1 ea 12/05/23 01/14/24 Unknown Rx simvastatin 40 mg tablet 40 mg PO BEDTIME 12/05/23 01/14/24 12/04/23 History furosemide 40 mg tablet 120 mg (3 x 40 mg) PO BID #1 tab 12/10/23 01/14/24 12/05/23 Rx lorazepam 1 mg tablet 1 mg PO BID PRN anxiety #60 tabs 12/13/23 01/14/24 Unknown Rx insulin glargine 100 unit/mL 90 unit (0.9 mL) SUBCUT BID #80 mL 12/17/23 01/14/24 Unknown Rx subcutaneous solution (Lantus U-100 Insulin) triamcinolone acetonide 0.1 % 1 applic topical BID #454 grams 12/17/23 01/14/24 Unknown Rx topical ointment buspirone 10 mg tablet 10 mg PO TID #90 tabs 01/10/24 01/14/24 Unknown Rx vortioxetine 10 mg tablet 10 mg PO DAILY #30 tabs 01/10/24 01/14/24 Unknown Rx (Trintellix) acetazolamide 125 mg tablet 125 mg PO DAILY #14 tabs 01/22/24 01/22/24 Unknown Rx diltiazem HCl 120 mg 120 mg PO DAILY #30 tabs 01/28/24 Unknown Rx tablet,extended release 24 hr Allergies Allergy/AdvReac Type Severity Reaction Status Date / Time morphine Allergy Severe Quit Verified 01/30/24 21:59 breathing amiodarone Allergy ALGY-Anaphy Verified 01/30/24 21:59 laxis shellfish derived AdvReac Severe Hives & Verified 01/30/24 21:59 throat swells meperidine [From Demerol] AdvReac Intermediate Made N & V Verified 01/30/24 21:59 Penicillins AdvReac Intermediate RAsh Verified 01/30/24 21:59 PFSH Acute PFSH: Medical History (Updated 01/31/24 @ 01:26 by Farhat Lopez MD) CHF exacerbation SOB (shortness of breath) Urinary retention Abscess Gait instability Positive cardiac stress test Fluid overload Muscle pain Skin rash Diarrhea Bronchospasm Hyperglycemia Chronic pain Diarrhea Generalized anxiety disorder Type 2 diabetes mellitus MRSA (methicillin resistant staph aureus) culture positive Influenza A Community acquired pneumonia Vitamin B12 deficiency Diabetes type 2, uncontrolled Psychiatric care Polypharmacy Gout Hyperlipidemia Hypothyroidism Fibromyalgia Depression CKD (chronic kidney disease) Chronic respiratory failure Amiodarone pulmonary toxicity Atrial fibrillation Hypercholesteremia HTN (hypertension) CAD (coronary artery disease) Last echocardiogram 08/06 with EF of 50% Stents x 3 - last in 02/2023 Major depressive disorder, recurrent severe without psychotic features Chronic pain She reports taking pain medicines and muscle relaxers for a recent back injury; she has chronic left leg pain. Surgical History History of incision and drainage Right breast abscess History of coronary artery stent placement H/O left knee surgery Hx of cholecystectomy History of hysterectomy partial H/O section History of back surgery H/O eye surgery History of carpal tunnel release H/O cardiac radiofrequency ablation Family History Mother Cancer breast Stroke Brother Heart disease Asthma Cancer prostate Sister Heart disease Social History Smoking and tobacco/nicotine status: never used tobacco/nicotine Alcohol intake: never Substance/Drug Use: never Housing: Other Details: Currently with her family Vitals/I&O/Wt Last Vital Signs Temp 99.2 F 01/30/24 21:52 Pulse 76 01/30/24 21:52 Resp 26 H 01/30/24 21:52 BP 155/76 01/30/24 21:52 Pulse Ox 92 01/30/24 21:52 O2 Del Method Aerosol Mask 01/30/24 21:52 Weight last 48 hrs Weight 145.15 kg Physical Exam Narrative: General: Patient is awake. Ill-appearing. Head: Normocephalic. Atraumatic. EOM intact. Neck: No JVD. Cardiovascular: RRR. No gallops. No murmurs. 1+ lower extremity edema. Lungs: Breath sounds are distant. Faint end expiratory wheeze present. No crackles or rales. On supplemental oxygen support. Skin: No jaundice. No rashes. Abdomen: Normal bowel sounds, abdomen soft and nontender. Genito Urinary: Genital exam not performed since complaints not related. Rectal: Rectal exam not performed since no symptoms indicated blood loss. Extremities: No cyanosis or clubbing. Musculoskeletal: No swollen or erythematous joints. Neurological: Moves all 4 extremities. No myoclonus. Data 01/30/24 22:16 01/30/24 22:16 Micro: Microbiology 01/30/24 22:29 Blood Culture - Preliminary Blood SPECIMEN COLLECTED 01/30/24 22:16 Blood Culture - Preliminary Blood SPECIMEN COLLECTED A&P Assessment and plan (1) COPD with acute exacerbation: Start systemic steroids with Solu-Medrol Schedule breathing treatments X-ray reviewed, questionable infiltrate versus atelectasis Procalcitonin unremarkable Start azithromycin Supportive care (2) Acute on chronic hypoxic respiratory failure: Acute on chronic hypoxic respiratory failure Treat underlying COPD exacerbation Rotate IV diuresis Continue supplemental oxygen support (3) Weakness: Suspect underlying viral illness Continue supportive care PT/OT evaluation (4) CHF (congestive heart failure): Chronic heart failure with borderline ejection fraction with suspected mild exacerbation Start IV Lasix 100 mg twice daily AC Continue home metolazone Continue home beta-kana Strict I's and O's Daily weights (5) CKD (chronic kidney disease): Chronic kidney disease, likely stage III Renally dose medications Avoid nephrotoxins (6) Type 2 diabetes mellitus: Hold Ozempic Continue Lantus at reduced home dose Highest dose sliding scale insulin correction (7) CAD (coronary artery disease): Plan DVT prophylaxis: Apixaban CODE STATUS: Full code Attestations Medical Necessity Statement*: Patient presents with diffuse weakness, found to have acute COPD exacerbation with expected hospitalization not to cross 2 midnights for IV steroids, breathing treatments, and supportive care. Coding Level of Care Code Acute Code for [facility] Fwd Diagnoses COPD with acute exacerbation J44.1 Acute on chronic hypoxic respiratory failure J96.21 Weakness R53.1 CHF (congestive heart failure) I50.9 CKD (chronic kidney disease) N18.9 Type 2 diabetes mellitus E11.9 CAD (coronary artery disease) I25.10
[2024-01-31 00:31] LABS: Adenovirus Not Detected (NOT DETECT); Chlamydia Pneumoniae Not Detected (NOT DETECT); Coronavirus 229E,HKU1,NL63,OC4 Not Detected (NOT DETECT); Human Metapneumovirus Not Detected (NOT DETECT); Human Rhinovirus/Enterovirus Not Detected (NOT DETECT); Influenza A Not Detected (NOT DETECT); Influenza A H1 Not Detected (NOT DETECT); Influenza A H1-2009 Not Detected (NOT DETECT); Influenza A H3 Not Detected (NOT DETECT); Influenza B Not Detected (NOT DETECT); Mycoplasma Pneumoniae Not Detected (NOT DETECT); Parainfluenza Virus Type 1 Not Detected (NOT DETECT); Parainfluenza Virus Type 2 Not Detected (NOT DETECT); Parainfluenza Virus Type 3 Not Detected (NOT DETECT); Parainfluenza Virus Type 4 Not Detected (NOT DETECT); Respiratory Syncytial Virus A Not Detected (NOT DETECT); Respiratory Syncytial Virus B Not Detected (NOT DETECT); SARS-COV-2 Not Detected (NOT DETECT)
[2024-01-31 00:31] LABS: Troponin 5 2HR 37.03 ng/L (0-10)
[2024-01-31 00:32] LABS: Troponin 5 2HR Delta -0.97 ABS# (0-10)
[2024-01-31] MEDS: doxycycline 100 MG in sodium chloride 0.9% (plus) 100 ML IV (00:44)
[2024-01-31 01:22] LABS: Bilirubin Urine Negative (Negative); Blood Urine Trace (Negative); Glucose Urine UA Negative (Normal); Ketones Urine Negative (Negative); Leukocyte Esterase Urine Negative (Negative); Nitrate Urine Negative (Negative); Protein Urine 1+ (Negative); Specific Gravity, Urine 1.009 (1.005-1.030); Urine Appearance Clear (CLEAR); Urine Color Yellow (Yellow); pH Urine 5.5 (5-7)
[2024-01-31 01:27] LABS: Bacteria Urine None Seen /hpf; Hyaline Casts Urine 2.05 /lpf; RBC Urine 0-2 /hpf (0-2); Squamous Epithelial Cell Urine 0-5 /hpf (0-5); WBC Urine 0-5 /hpf (0-5)
[2024-01-31] MEDS: azithromycin 500 MG in sodium chloride 0.9% 250 ML 250 MG IV (02:19)
[2024-01-31] MEDS: methylPREDNISolone sod succ 40 mg/mL INJ IVP ×4 (02:19→18:43)
--- NOTE | 2024-01-31 04:42 | ECG_ITS ---
[facility] Test Date: 2024-01-31 Pat Name: Shauna Sena Department: Room: 252 Gender: Female Utility Operator: : 1955 Requested By: Rianna Gibson Order Number: [id number] Mcginnis MD: Seth Santillan M.D. Measurements Intervals [place] Rate: 71 P: 0 NV: 0 QRS: 41 QRSD: 117 T: 63 QT: 427 QTc: 467 Interpretive Statements SUPRAVENTRICULAR RHYTHM LOW QRS VOLTAGE IN PRECORDIAL LEADS [QRS DEFLECTION < 1.0 mV IN CHEST LEADS] INCOMPLETE RIGHT BUNDLE BRANCH BLOCK [90+ ms QRS DURATION, TERMINAL R IN V1/V2, 40+ ms S IN I/aVL/V4/V5/V6] NONSPECIFIC ST & T-WAVE ABNORMALITY Compared to ECG 01/30/2024 23:48:56 Low QRS voltage now present Incomplete right bundle-branch block now present First degree AV block no longer present Intraventricular conduction delay no longer present T-wave abnormality still present Electronically Signed On 01-31-2024 11:02:29 CDT by Seth Santillan M.D. [id number]
[2024-01-31 04:50] LABS: Troponin 5 6HR 31.17 ng/L (0-10)
[2024-01-31 04:54] LABS: Troponin 5 6HR Delta -6.83 ng/L (0-12)
[2024-01-31] MEDS: FUROsemide 10 mg/mL SDV 10mL 100 MG IVP (06:24)
[2024-01-31 07:51] LABS: Glucose Point of Care 248 mg/dL (70-110)
[2024-01-31] MEDS: metoprolol tartrate 50 mg Tablet 100 MG PO ×2 (08:13→17:46)
[2024-01-31] MEDS: metOLazone 5 MG Tablet 10 MG PO (08:13)
[2024-01-31] MEDS: potassium chloride ER 20 mEq Tablet PO ×2 (08:13→17:46)
[2024-01-31] MEDS: apixaban 5 mg Tablet PO ×2 (08:14→17:46)
[2024-01-31] MEDS: insulin lispro 100 unit/1 mL SUBCUT ×4 (08:14→20:49)
[2024-01-31] MEDS: insulin glargine 100 units/1 mL 72 UNIT SUBCUT ×2 (08:14→17:48)
[2024-01-31] MEDS: ipratropium-albuterol 3 mL Neb INHALATION ×3 (08:20→19:56)
[2024-01-31 11:16] LABS: Glucose Point of Care 317 mg/dL (70-110)
--- NOTE | 2024-01-31 11:18 | USCV_ITS ---
Shauna Sena Age: 68 Gender: F : 1955 Exam Date: 01/31/2024 13:19 Ordering Phys: Sylvie Quinteros MD Technologist: [employer] Exam Location: [facility] [place] Indication: swelling HISTORY: Lower extremity swelling. PROCEDURES: The venous duplex Doppler examination of both lower extremities was performed in the standard fashion. The following venous structures were evaluated: common femoral vein, profunda vein, proximal portion of the greater saphenous vein, superficial femoral vein, and the popliteal vein. FINDINGS: Normal 2-D Doppler and augmentation and compressibility throughout the lower extremity venous structures. Additional imaging through the proximal calf veins also reveals no thrombus. Limited evaluation of the greater saphenous vein is patent with no thrombus. CONCLUSIONS No evidence of right lower extremity DVT. No evidence of left lower extremity DVT. Sterling Serrato MD (Electronically Signed) Final Date: 31 January 2024 16:15 S
--- NOTE | 2024-01-31 11:32 | W.PM.EVENTAC ---
Event Note Event Note: This morning patient endorsing feeling better Uses 3 L at baseline Has amiodarone use toxicity of lungs Does not use Spiriva or Advair Does not have any bander and cellophaner machine referral I will request venous Doppler of left lower extremity Continue diuresis for CHF Continue cardiac diet Plan to discharge by tomorrow if remains stable During my evaluation she is on 3.5 L
[2024-01-31 16:45] LABS: Glucose Point of Care 315 mg/dL (70-110)
[2024-01-31 20:39] LABS: Glucose Point of Care 340 mg/dL (70-110)
[2024-01-31] MEDS: atorvastatin 40 mg Tablet 20 MG PO (20:53)
[2024-01-31] MEDS: benzonatate 100 mg Capsule PO (22:01)
[2024-02-01] VITALS (7 sets, daily range): BP systolic 145–179; BP diastolic 55–84; PULSE 67–98; RESP 16–18; TEMP 36.4–36.7; O2SAT 90–98
[2024-02-01] MEDS: methylPREDNISolone sod succ 40 mg/mL INJ IVP ×3 (00:40→14:01)
[2024-02-01] MEDS: ipratropium-albuterol 3 mL Neb INHALATION ×2 (02:14→08:47)
[2024-02-01 05:35] LABS: Anion Gap 20.4 (5-19); Blood Urea Nitrogen 44 mg/dL (8-23); Calcium 8.9 mg/dL (8.5-10.5); Carbon Dioxide 22 mmol/L (22-29); Chloride 99 mmol/L (98-107); Creatinine Clr Calc Pharmacy 49.9023; Glucose 292 mg/dL (65-115); Magnesium 2.4 mg/dL (1.7-2.3); Osmolality Calculated 308 mOsm/kg (285-295); Potassium 3.4 mmol/L (3.5-5.1); Sodium 138 mmol/L (136-145)
[2024-02-01 06:32] LABS: Glucose Point of Care 262 mg/dL (70-110)
[2024-02-01] MEDS: metoprolol tartrate 50 mg Tablet 100 MG PO (08:38)
[2024-02-01] MEDS: metOLazone 5 MG Tablet 10 MG PO (08:38)
[2024-02-01] MEDS: apixaban 5 mg Tablet PO (08:38)
[2024-02-01] MEDS: potassium chloride ER 20 mEq Tablet PO (08:38)
[2024-02-01] MEDS: azithromycin 250 mg Tablet 500 MG PO (08:38)
[2024-02-01] MEDS: insulin lispro 100 unit/1 mL SUBCUT ×2 (08:39→11:59)
[2024-02-01] MEDS: insulin glargine 100 units/1 mL 72 UNIT SUBCUT (08:39)
[2024-02-01] MEDS: benzonatate 100 mg Capsule PO (08:42)
--- NOTE | 2024-02-01 10:16 | P.DS_ITS ---
Discharge Providers Date of Admission: 01/31/24 01:09 Date of Discharge: February 01, 2024 Attending Provider at Admission: Farhat Lopez MD Attending Provider at Discharge: Sylvie Quinteros MD Primary Care Provider: Farhat Acosta MD Diagnoses at Discharge Discharge Diagnosis (1) COPD with acute exacerbation: Status: Acute (2) Acute on chronic hypoxic respiratory failure: Status: Acute (3) Weakness: Status: Acute (4) CHF (congestive heart failure): Status: Acute (5) CKD (chronic kidney disease): Status: Chronic (6) Type 2 diabetes mellitus: Status: Acute (7) CAD (coronary artery disease): Status: Chronic Permanent problem details: Last echocardiogram 08/06 with EF of 50% Stents x 3 - last in 02/2023 Reason for Visit Reason for Visit: FALL/SOB Hospital Course Hospital Course 68 YO female with history of diastolic CHF, presented with chief complaint of worsening of her cough, patient is stating that she has history of A-fib and in the past she developed a reaction to amiodarone and since then she has been on 2 L of oxygen, 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 During this hospitalization she was diuresed aggressively which improved her creatinine to some extent, at the time of discharge she is around her baseline creatinine, oxygen requirement did not worsen she remains on 3 to 3.5 L nasal cannula, she remained afebrile, at the time of discharge I will add LAMA LABA ICS combination and change her diuretic to Bumex. Patient is stating that she is trying to watch her fluid and sodium intake. No chest pain during this hospitalization. Recent stress test showed changes along previous infarct with very infarct ischemia. Physical Exam Narrative: Morbid obese Signs of fluid overload improving Awake and alert Productive cough Hemodynamic stable A-fib without RVR Currently on 3 L Discharge Data Studies Completed and Pending Completed Studies During Hospitalization Category Date Time Status XR chest 1V portable [id number] Stat Exams 01/30/24 21:55 Completed XR hip RT 2-3V wo/w pel* [id number] Stat Exams 01/30/24 23:30 Completed XR shoulder RT min 2V* [id number] Stat Exams 01/30/24 23:29 [place] [id number] Routine Ultrasound 01/31/24 11:18 Completed Pending at discharge Category Date Time Status Blood Culture Stat Lab 01/30/24 22:29 Results Radiology Impressions Chest X-Ray 01/30/24 21:55 IMPRESSION: Central vascular prominence without overt edema. Cardiomegaly. Retrocardiac opacities may represent atelectasis or consolidation. Shoulder X-Ray 01/30/24 23:29 IMPRESSION: No acute fracture or dislocation. Hip/Pelvis X-Ray 01/30/24 23:30 IMPRESSION: No acute fracture or dislocation. Laboratory Results WBC 10.01 10^3/uL (3.29-11.43) 01/30/24 22:16 RBC 5.13 10^6/uL (3.85-5.65) 01/30/24 22:16 Hgb 14.10 g/dL (11.27-16.99) 01/30/24 22:16 Hct 45.7 % (36-47) 01/30/24 22:16 MCV 89.1 fl (85-98) 01/30/24 22:16 MCH 27.5 pg (27-33) 01/30/24 22:16 MCHC 30.9 g/dL (30-55) 01/30/24 22:16 RDW 16.7 % (12.1-15.1) H 01/30/24 22:16 Plt Count 212 10^3/cmm (157-399) 01/30/24 22:16 MPV 10.7 fL (7.4-10.4) H 01/30/24 22:16 Neut % (Auto) 70.8 % 01/30/24 22:16 Lymph % (Auto) 14.6 % 01/30/24 22:16 [place] % (Auto) 11.8 % 01/30/24 22:16 Eos % (Auto) 1.4 % 01/30/24 22:16 Baso % (Auto) 0.6 % 01/30/24 22:16 Neut # (Auto) 7.09 10^3/uL (1.8-7.7) 01/30/24 22:16 Lymph # (Auto) 1.5 10^3/uL (0.8-4.8) 01/30/24 22:16 [place] # (Auto) 1.2 10^3/uL (0.2-0.9) H 01/30/24 22:16 Eos # (Auto) 0.1 10^3/uL (0.0-0.8) 01/30/24 22:16 Baso # (Auto) 0.1 10^3/uL (0.0-0.1) 01/30/24 22:16 Nucleated RBC % (auto) 0 % 01/30/24 22:16 Nucleated RBCs # 0.0 /100WBC 01/30/24 22:16 Specimen Type Arterial 01/30/24 22:08 Sample Site Radial, right 01/30/24 22:08 ABG pH 7.42 (7.35-7.45) 01/30/24 22:08 ABG pCO2 40.1 mmHg (35-45) 01/30/24 22:08 ABG pO2 64.4 mmHg (80.0-100.0) L 01/30/24 22:08 ABG HCO3 26.3 mmol/L (22-26) H 01/30/24 22:08 ABG O2 Saturation 93.5 01/30/24 22:08 ABG Base Excess 1.7 mmol/L (-2.0-2.0) 01/30/24 22:08 [place] Test Pos 01/30/24 22:08 A-a O2 Gradient 4.6 mmHg (5-10) L 01/30/24 22:08 Hematocrit 44.7 % (37-47) 01/30/24 22:08 Hgb O2 Saturation 92.1 % (95-100) L 01/30/24 22:08 Carboxyhemoglobin 1.3 %THgb (0.4-20.1) 01/30/24 22:08 Methemoglobin 0.2 % (0.4-1.5) L 01/30/24 22:08 Total Hemoglobin 14.6 g/dL (12-16) 01/30/24 22:08 Sodium 140.0 mmol/L (131-143) 01/30/24 22:08 Potassium 3.2 mmol/L (3.5-5.0) L 01/30/24 22:08 Glucose 84.0 mg/dL (70-115) 01/30/24 22:08 Ionized Calcium 1.2 mmol/L (1.1-1.4) 01/30/24 22:08 O2 Delivery Device Nc 01/30/24 22:08 O2 Liters/Min 4.0 % 01/30/24 22:08 Combine Driver ID Cl 01/30/24 22:08 Sodium 138 mmol/L (136-145) 02/01/24 04:14 Potassium 3.4 mmol/L (3.5-5.1) L 02/01/24 04:14 Chloride 99 mmol/L (98-107) 02/01/24 04:14 Carbon Dioxide 22 mmol/L (22-29) 02/01/24 04:14 Anion Gap 20.4 (5-19) H 02/01/24 04:14 BUN 44 mg/dL (8-23) H 02/01/24 04:14 Creatinine 1.6 mg/dL (0.5-0.9) H 02/01/24 04:14 GFR Calculation 32.0 mL/min (90-130) L 02/01/24 04:14 Glucose 292 mg/dL (65-115) H 02/01/24 04:14 POC Glucose 262 mg/dL (70-110) H 02/01/24 06:02 Calculated Osmolality 308 mOsm/kg (285-295) H 02/01/24 04:14 Lactic Acid 1.1 mmol/L (0.5-2.2) 01/30/24 22:16 Calcium 8.9 mg/dL (8.5-10.5) 02/01/24 04:14 Magnesium 2.4 mg/dL (1.7-2.3) H 02/01/24 04:14 Total Bilirubin 0.4 mg/dL (0.15-1.2) 01/30/24 22:16 AST 14 U/L (0-32) 01/30/24 22:16 ALT 26 U/L (0-33) 01/30/24 22:16 Alkaline Phosphatase 91 U/L (35-105) 01/30/24 22:16 Troponin T Baseline 38 ng/L (0-10) H 01/30/24 22:16 Troponin T 120 Minute 37.03 ng/L (0-10) H 01/31/24 00:04 Delta Troponin T -0.97 ABS# (0-10) L 01/31/24 00:04 Troponin T Hi Sens 6Hr 31.17 ng/L (0-10) H 01/31/24 04:24 Troponin T Hi Sens 6Hr Delta -6.83 ng/L (0-12) L 01/31/24 04:24 C-Reactive Protein 38.6 mg/L (0.0-4.9) H 01/30/24 22:16 NT-Pro-B Natriuret Pep 691 pg/mL (0-125) H 01/30/24 22:16 Total Protein 6.0 g/dL (6.6-8.7) L 01/30/24 22:16 Albumin 3.8 g/dL (3.5-5.2) 01/30/24 22:16 Globulin 2.2 g/dL (1.3-4.6) 01/30/24 22:16 Procalcitonin 0.13 ng/mL (0-0.5) 01/30/24 22:16 Urine Color Yellow (Yellow) 01/31/24 00:26 Urine Appearance Clear (CLEAR) 01/31/24 00: Urine pH 5.5 (5-7) 01/31/24 00:26 Ur Specific [place] 1.009 (1.005-1.030) 01/31/24 00:26 Urine Protein 1+ (Negative) A 01/31/24 00:26 Urine Glucose (UA) Negative (Normal) 01/31/24 00: Urine Ketones Negative (Negative) 01/31/24 00:26 Urine Blood Trace (Negative) A 01/31/24 00:26 Urine Nitrate Negative (Negative) 01/31/24 00:26 Urine Bilirubin Negative (Negative) 01/31/24 00: Urine Urobilinogen 1.0 mg/dL (Negative) 01/31/24 00:26 Ur Leukocyte Esterase Negative (Negative) 01/31/24 00:26 Urine RBC 0-2 /hpf (0-2) 01/31/24 00:26 Urine WBC 0-5 /hpf (0-5) 01/31/24 00:26 Ur Squamous Epith Cells 0-5 /hpf (0-5) 01/31/24 00:26 Amorphous Sediment Not Reportable 01/31/24 00:26 Urine Bacteria None seen /hpf (NONE) 01/31/24 00: Hyaline Casts 2.05 /lpf 01/31/24 00:26 Adenovirus (PCR) Not detected (NOT DETECT) 01/30/24 22:14 C. pneumoniae DNA (PCR) Not detected (NOT DETECT) 01/30/24 22:14 Coronavirus 229E (PCR) Not detected (NOT DETECT) 01/30/24 22:14 Human Metapneumovir PCR Not detected (NOT DETECT) 01/30/24 22:14 Influenza A (H1) PCR Not detected (NOT DETECT) 01/30/24 22:14 Influ A (H1/09) PCR Not detected (NOT DETECT) 01/30/24 22:14 Influenza A (H3) PCR Not detected (NOT DETECT) 01/30/24 22:14 Influenza Type A (PCR) Not detected (NOT DETECT) 01/30/24 22:14 Influenza Type B (PCR) Not detected (NOT DETECT) 01/30/24 22:14 M. pneumoniae (PCR) Not detected (NOT DETECT) 01/30/24 22:14 Parainfluenza 1 (PCR) Not detected (NOT DETECT) 01/30/24 22:14 Parainfluenza 2 (PCR) Not detected (NOT DETECT) 01/30/24 22:14 Parainfluenza 3 (PCR) Not detected (NOT DETECT) 01/30/24 22:14 Parainfluenza 4 (PCR) Not detected (NOT DETECT) 01/30/24 22:14 RSV Type A (PCR) Not detected (NOT DETECT) 01/30/24 22:14 RSV Type B (PCR) Not detected (NOT DETECT) 01/30/24 22:14 Entero/Rhino (PCR) Not detected (NOT DETECT) 01/30/24 22:14 SARS-CoV-2 (PCR) Not detected (NOT DETECT) 01/30/24 22:14 Vitals Last Vital Signs Temp 97.9 F 02/01/24 08:00 Pulse 70 02/01/24 08:00 Resp 16 02/01/24 08:00 BP 161/83 02/01/24 08:00 Pulse Ox 95 02/01/24 08:00 O2 Del Method Nasal Cannula 02/01/24 08:00 O2 Flow Rate 3 02/01/24 08:00 Discharge Plan Discharge Patient Disposition: Home Condition: Stable Prescriptions: New dextromethorphan polistirex [Robitussin ER] 30 mg/5 mL suspension,extended rel 12 hr 10 ml PO Q12H Qty: 89 0RF methylprednisolone [Medrol (Obdulio)] 4 mg tablets,dose pack See Rx Instructions .ROUTE .COMPLEX Qty: 21 0RF Rx Instructions: orally per package directions tiotropium bromide [Spiriva with HandiHaler] 18 mcg capsule, w/inhalation device 1 cap inhalation DAILY Qty: 90 4RF Rx Instructions: puncture 1 cap using device; one dose = 2 inhalations azithromycin 500 mg tablet 500 mg PO DAILY 3 Days Qty: 3 0RF bumetanide 2 mg tablet 2 mg PO DAILY Qty: 60 4RF fluticasone furoate-vilanterol [Breo Ellipta] 200-25 mcg/dose blister with device 1 inh inhalation DAILY Qty: 60 5RF Continued ketoconazole 2 % cream 1 applic topical BID Qty: 30 3RF Rx Instructions: Apply to affected areas in skin folds X3 weeks then PRN for flares. hydrocodone-acetaminophen 5-325 mg tablet 1 tab PO Q6H PRN (Reason: pain (scale score 7-10)) 15 Days Qty: 30 0RF (DME) Manual wheelchair See Rx Instructions .Route .MEDSUPPLY Qty: 1 0RF Rx Instructions: As directed (DME) FreeStyle Lou 14 Day Sensor Kit See Rx Instructions .Route Qty: 2 11RF Rx Instructions: As directed nitroglycerin [Nitrostat] 0.4 mg tablet, sublingual 0.4 mg SUBLINGUAL Q5M PRN (Reason: Chest Pain) Qty: 30 6RF Rx Instructions: do not exceed 3 doses per episode Ozempic 0.25 mg or 0.5 mg (2 mg/3 mL) pen injector 0.25 mg SUBCUT Q7D Qty: 3 3RF Lantus U-100 Insulin 100 unit/mL solution 90 unit SUBCUT BID Qty: 80 6RF triamcinolone acetonide 0.1 % ointment 1 applic topical BID Qty: 454 2RF Rx Instructions: apply to affected area no more than 2 weeks per month. not for face cyanocobalamin (vitamin B-12) [Vitamin B-12] 1,000 mcg tablet 1,000 mcg PO DAILY Qty: 30 6RF ondansetron HCl 4 mg tablet 4 mg PO Q8H PRN (Reason: nausea and vomiting) Qty: 30 3RF clopidogrel 75 mg tablet 75 mg PO DAILY Qty: 90 3RF (DME) FreeStyle Lou 14 Day [place] Misc See Rx Instructions .Route Qty: 1 12RF Rx Instructions: As directed (DME) insulin syringe-needle U-100 [BD Insulin Syringe] 1 mL 29 gauge x 1/2 syringe See Rx Instructions .Route Qty: 100 6RF Rx Instructions: As directed to inject insulin 2-3x/day allopurinol 300 mg tablet 300 mg PO DAILY Qty: 90 3RF apixaban 5 mg tablet 5 mg PO BID Qty: 180 3RF diltiazem HCl 120 mg capsule,extended release 24hr 120 mg PO DAILY Qty: 90 3RF levothyroxine 50 mcg tablet 50 mcg PO DAILY Qty: 90 3RF metoprolol tartrate 100 mg tablet 100 mg PO BID Qty: 180 3RF potassium chloride 20 mEq tablet,ER particles/crystals 20 meq PO BID Qty: 180 3RF cholecalciferol (vitamin D3) 50 mcg (2,000 unit) capsule 50 mcg PO DAILY Qty: 30 6RF pregabalin 50 mg capsule 50 mg PO BID Qty: 60 5RF lorazepam 1 mg tablet 1 mg PO BID PRN (Reason: anxiety) Qty: 60 1RF buspirone 10 mg tablet 10 mg PO TID Qty: 90 1RF Trintellix 10 mg tablet 10 mg PO DAILY Qty: 30 1RF acetaminophen 500 mg Tablet 1,000 mg PO Q6H PRN (Reason: Pain) simvastatin 40 mg tablet 40 mg PO BEDTIME ketoconazole 2 % shampoo 1 applic topical Q3D Rx Instructions: Lather into scalp 2-3 times weekly. Allow to sit on scalp 5 minutes before rinsing. metolazone 10 mg tablet 10 mg PO DAILY Qty: 5 0RF Discontinued acetazolamide 125 mg tablet 125 mg PO DAILY Qty: 14 0RF furosemide 40 mg tablet 120 mg PO BID Qty: 1 0RF Rx Instructions: Frequency change only. Discharge Orders: Discharge Order (Routine); Ordered 02/01/24 Ordered By: Sylvie Quinteros Referrals: Miguelina Walters MD [Physician] - 1-3 days Farhat Acosta MD [Primary Care Provider] - Discharge Diet: Cardiac Discharge Activity: Increase activity as tolerated Patient Instructions: Opioid Safety Discharge Attestations Time Spent in Discharge Care*: greater than 30 min Status at Discharge: Cognitive status at discharge: cognitively intact , Behavioral status at discharge: cooperative , Quality Metrics Clinical Quality Measures [ No reported AMI, CVA or VTE this stay] Coding Level of Care Code Acute Code for Chg Fwd Diagnoses COPD with acute exacerbation J44.1 Acute on chronic hypoxic respiratory failure J96.21 Weakness R53.1 CHF (congestive heart failure) I50.9 CKD (chronic kidney disease) N18.9 Type 2 diabetes mellitus E11.9 CAD (coronary artery disease) I25.10
[2024-02-01 11:36] LABS: Glucose Point of Care 305 mg/dL (70-110)
== END 2024-02-01 15:29 | disposition home or self-care (01) ==
LOC: ER 01-31 00:40 → MEDSURG 01-31 01:35
PROVIDERS: Admitting Provider Internal Medicine; Emergency Provider Emergency Medicine; PCP Family Medicine; Visit Provider Internal Medicine
DX: J44.1 Chronic obstructive pulmonary disease with (acute) exacerbation (principal); J96.21 Acute and chronic respiratory failure with hypoxia; R53.1 Weakness; I50.30 Unspecified diastolic (congestive) heart failure; E11.22 Type 2 diabetes mellitus with diabetic chronic kidney disease; I13.0 Hypertensive heart and chronic kidney disease with heart failure and stage 1 through stage 4 chronic kidney disease, or unspecified chronic kidney disease; N18.9 Chronic kidney disease, unspecified; I25.10 Atherosclerotic heart disease of native coronary artery without angina pectoris; Z91.81 History of falling; I48.91 Unspecified atrial fibrillation; Z99.81 Dependence on supplemental oxygen; R60.0 Localized edema; E66.01 Morbid (severe) obesity due to excess calories; Z68.42 Body mass index [BMI] 45.0-49.9, adult; Z86.14 Personal history of Methicillin resistant Staphylococcus aureus infection
CPT/HCPCS: 36415; 36416; 36600; 71045; 73030; 73502; 80048; 80051; 80053; 81001; 82330; 82805; 82962; 83605; 83735; 83880; 84145; 84484; 85025; 86140; 87040; 87486; 87581; 87633; 93005; 93970; 94640; 94664; 96365; 96367; 96372; 96375; 97116; 97161; 97165; 97530; 99285; G0378; J0456; J1815; J1940; J2919; J3490; J7050; Q0144

== ENCOUNTER 2024-02-03 16:43 | Inpatient (IN) | payer MEDICARE, MEDICAID, SELFPAY ==
[2024-02-03] VITALS (13 sets, daily range): BP systolic 119–168; BP diastolic 68–112; PULSE 58–110; RESP 16–21; TEMP 36.7–37.2; O2SAT 91–95; BMI 47.9
--- NOTE | 2024-02-03 16:45 | ECG_ITS ---
[facility] Test Date: 2024-02-03 Pat Name: Shauna Sena Department: Room: Gender: Female Consulting Psychiatrist: : [id number] Requested By: Nadeem Fontaine Order Number: [id number] Rahel MD: Seth Santillan M.D. Measurements Intervals [place] Rate: 85 P: 0 CO: 0 QRS: -60 QRSD: 114 T: -25 QT: 362 QTc: 432 Interpretive Statements ATRIAL FLUTTER LEFT ANTERIOR FASCICULAR BLOCK [QRS AXIS <= -45, QR IN I, RS IN II] ST DEVIATION AND MODERATE T-WAVE ABNORMALITY, CONSIDER ANTERIOR ISCHEMIA [-0.1+ mV T-WAVE IN V3/V4] Compared to ECG 01/31/2024 04:42:15 Left anterior fascicular block now present Possible ischemia now present Supraventricular rhythm no longer present Incomplete right bundle-branch block no longer present T-wave abnormality still present Electronically Signed On 02-03-2024 20:06:23 CDT by Seth Santillan M.D. [email or web address]
--- NOTE | 2024-02-03 16:45 | XRR_ITS ---
PROCEDURE INFORMATION: Exam: XR Chest Exam date and time: 02/03/2024 5:12 PM Age: 68 years old Clinical indication: Shortness of breath; Prior surgery; Surgery date: 6+ months; Surgery type: RT breast cardiac stents; Additional info: SOB TECHNIQUE: Imaging protocol: Radiologic exam of the chest. Views: 1 view. COMPARISON: CR (CHEST, ) 01/30/2024 10:08 PM FINDINGS: Lungs: Increased interstitial markings with peribronchial cuffing throughout both lungs are nonspecific but can be seen the setting of bronchitis, pulmonary vascular congestion, viral infection and small-vessel airways disease. Pleural spaces: Unremarkable. No pleural effusion. No pneumothorax. Heart/Mediastinum: Unremarkable. No cardiomegaly. Bones/joints: Unremarkable. XR/XR chest 1V portable [id number] IMPRESSION: Increased interstitial markings with peribronchial cuffing throughout both lungs are nonspecific but can be seen the setting of bronchitis, pulmonary vascular congestion, viral infection and small-vessel airways disease.
[2024-02-03 17:09] LABS: Basophils # 0.1 10^3/uL (0.0-0.1); Basophils % 0.4 %; Eosinophils # 0.1 10^3/uL (0.0-0.8); Eosinophils % 0.3 %; Hematocrit 56.8 % (36-47); Lymphocytes # 1.6 10^3/uL (0.8-4.8); Lymphocytes % 10.3 %; Mean Corpuscular HGB Conc 32.6 g/dL (30-55); Mean Corpuscular Volume 85.9 fl (85-98); Mean Platelet Volume 10.8 fL (7.4-10.4); Monocytes % 6.5 %; Neutrophils # 12.71 10^3/uL (1.8-7.7); Neutrophils % 81.5 %; Nucleated Red Blood Cells % 0 %; Platelet Count 273 10^3/cmm (157-399); Red Blood Count 6.61 10^6/uL (3.85-5.65); Red Cell Distribution Width 16.9 % (12.1-15.1); White Blood Count 15.59 10^3/uL (3.29-11.43)
[2024-02-03 17:21] LABS: Slide Review Slide Review Perform
[2024-02-03 17:36] LABS: Alanine Aminotransferase 66 U/L (0-33); Albumin Level 3.9 g/dL (3.5-5.2); Alkaline Phosphatase 95 U/L (35-105); Anion Gap 13.2 (5-19); Aspartate Amino Transferase 46 U/L (0-32); Blood Urea Nitrogen 55 mg/dL (8-23); Chloride 87 mmol/L (98-107); Globulin 3.4 g/dL (1.3-4.6); Glomerular Filtration Rate 34.4 mL/min (90-130); Glucose 220 mg/dL (65-115); NT Pro B Type Natriuretic Pept 2140 pg/mL (0-125); Osmolality Calculated 308 mOsm/kg (285-295); Potassium 3.2 mmol/L (3.5-5.1); Sodium 138 mmol/L (136-145); Total Bilirubin 0.6 mg/dL (0.15-1.2); Total Protein 7.3 g/dL (6.6-8.7)
[2024-02-03 17:47] LABS: Carbon Dioxide 41 mmol/L (22-29)
--- NOTE | 2024-02-03 18:12 | ED_ITS ---
HPI - SOB/Dyspnea 2 General: Chief Complaint: Shortness of Breath/Dyspnea Stated Complaint: SOB Time Seen by Provider: 02/03/24 17:58 History of Present Illness: HPI Narrative: 68-year-old female with a history of con gestive heart failure, mainly diastolic. She was discharged from the hospital on Sunday, 2 days ago, after having been aggressively diuresed for heart failure. She also was diagnosed with pneumonia and has been on antibiotics. She has been taking her medication. She says her water weight is stable from discharge she believes. She is still short of breath, she is very tired. She complains of a headache, cough with green sputum production, significant pain with cough, and headache. Even on her 3 to 3-1/2 L at home, she is having trouble getting to the restroom in terms of walking and ambulation. She cannot lay flat at all without being extremely short of breath. Related Data Home Medications Medication Instructions Recorded Confirmed acetaminophen 500 mg tablet 1,000 mg PO Q6H PRN Pain 05/11/22 01/31/24 ketoconazole 2 % shampoo 1 applic topical Q3D 04/04/23 01/31/24 simvastatin 40 mg tablet 40 mg PO BEDTIME 12/05/23 01/31/24 Previous Rx's Medication Instructions Recorded cyanocobalamin (vitamin B-12) 1,000 mcg PO DAILY #30 tabs 02/05/22 1,000 mcg tablet (Vitamin B-12) ondansetron HCl 4 mg tablet 4 mg PO Q8H PRN nausea and 07/28/22 vomiting #30 tabs ketoconazole 2 % topical cream 1 applic topical BID #30 grams 09/06/22 flash glucose sensor (FreeStyle #2 ea 03/27/23 Lou 14 Day Sensor kit) clopidogrel 75 mg tablet 75 mg PO DAILY #90 tabs 04/02/23 flash glucose scanning reader #1 ea 05/14/23 (FreeStyle Lou 14 Day [place]) nitroglycerin 0.4 mg sublingual 0.4 mg sublingual Q5M PRN Chest 05/24/23 tablet (Nitrostat) Pain #30 tabs insulin syringe-needle U-100 1 mL #100 ea 06/12/23 29 gauge x 1/2 (BD Insulin Syringe) metolazone 10 mg tablet 10 mg PO DAILY #5 tabs 08/14/23 hydrocodone 5 mg-acetaminophen 325 1 tab PO Q6H PRN pain (scale score 08/20/23 mg tablet 7-10) 15 days #30 tabs semaglutide 0.25 mg or 0.5 mg (2 0.25 mg (0.368 mL) SUBCUT Q7D #3 mL 10/11/23 mg/3 mL) subcutaneous pen injector (Ozempic) allopurinol 300 mg tablet 300 mg PO DAILY #90 tabs 10/22/23 apixaban 5 mg tablet 5 mg PO BID #180 tabs 10/22/23 diltiazem HCl 120 mg 120 mg PO DAILY #90 caps 10/22/23 capsule,extended release 24 hr levothyroxine 50 mcg tablet 50 mcg PO DAILY #90 tabs 10/22/23 metoprolol tartrate 100 mg tablet 100 mg PO BID #180 tabs 10/22/23 potassium chloride 20 mEq 20 meq PO BID #180 tabs 10/22/23 tablet,extended release(part/cryst) cholecalciferol (vitamin D3) 50 50 mcg PO DAILY #30 caps 10/30/23 mcg (2,000 unit) capsule pregabalin 50 mg capsule 50 mg PO BID #60 caps 11/06/23 Manual wheelchair #1 ea 12/05/23 lorazepam 1 mg tablet 1 mg PO BID PRN anxiety #60 tabs 12/13/23 insulin glargine 100 unit/mL 90 unit (0.9 mL) SUBCUT BID #80 mL 12/17/23 subcutaneous solution (Lantus U-100 Insulin) triamcinolone acetonide 0.1 % 1 applic topical BID #454 grams 12/17/23 topical ointment buspirone 10 mg tablet 10 mg PO TID #90 tabs 01/10/24 vortioxetine 10 mg tablet 10 mg PO DAILY #30 tabs 01/10/24 (Trintellix) azithromycin 500 mg tablet 500 mg PO DAILY 3 days #3 tabs 02/01/24 bumetanide 2 mg tablet 2 mg PO DAILY #60 tabs 02/01/24 dextromethorphan polistirex 30 10 ml PO Q12H #89 mL 02/01/24 mg/5 mL oral susp ext.release 12hr (Robitussin ER) fluticasone furoate 200 1 inh inhalation DAILY #60 ea 02/01/24 mcg-vilanterol 25 mcg/dose inhalation powder (Breo Ellipta) methylprednisolone 4 mg tablets in See Rx Instructions PO .COMPLEX 02/01/24 a dose pack (Medrol (Obdulio)) #21 ea tiotropium bromide 18 mcg capsule 1 cap inhalation DAILY #90 02/01/24 with inhalation device (Spiriva inhalations with HandiHaler) Allergies Allergy/AdvReac Type Severity Reaction Status Date / Time morphine Allergy Severe Quit Verified 02/03/24 16:52 breathing amiodarone Allergy ALGY-Anaphy Verified 02/03/24 16:52 laxis shellfish derived AdvReac Severe Hives & Verified 02/03/24 16:52 throat swells meperidine [From Demerol] AdvReac Intermediate Made N & V Verified 02/03/24 16:52 Penicillins AdvReac Intermediate RAsh Verified 02/03/24 16:52 PFSH ED 2 PFSH: Medical History CHF (congestive heart failure) Acute hip pain Fall Weakness COPD with acute exacerbation Acute on chronic hypoxic respiratory failure Pneumonia CHF exacerbation SOB (shortness of breath) Urinary retention Abscess Gait instability Positive cardiac stress test Fluid overload Muscle pain Skin rash Diarrhea Bronchospasm Hyperglycemia Chronic pain Diarrhea Generalized anxiety disorder Type 2 diabetes mellitus MRSA (methicillin resistant staph aureus) culture positive Influenza A Community acquired pneumonia Vitamin B12 deficiency Diabetes type 2, uncontrolled Psychiatric care Polypharmacy Gout Hyperlipidemia Hypothyroidism Fibromyalgia Depression CKD (chronic kidney disease) Chronic respiratory failure Amiodarone pulmonary toxicity Atrial fibrillation Hypercholesteremia HTN (hypertension) CAD (coronary artery disease) Last echocardiogram 08/06 with EF of 50% Stents x 3 - last in 02/2023 Major depressive disorder, recurrent severe without psychotic features Chronic pain She reports taking pain medicines and muscle relaxers for a recent back injury; she has chronic left leg pain. Surgical History History of incision and drainage Right breast abscess History of coronary artery stent placement H/O left knee surgery Hx of cholecystectomy History of hysterectomy partial H/O section History of back surgery H/O eye surgery History of carpal tunnel release H/O cardiac radiofrequency ablation Family History Mother Cancer breast Stroke Brother Heart disease Asthma Cancer prostate Sister Heart disease Social History Smoking and tobacco/nicotine status: never used tobacco/nicotine Alcohol intake: never Substance/Drug Use: never Housing: Other Details: Currently with her family Physical Exam 2 Const: GENERAL APPEARANCE: cooperative, ill appearing, frail appearing and diaphoretic HENMT: COMMON NORMALS: normocephalic, atraumatic and Normal external nose present HEAD & SCALP: normocephalic and atraumatic FACE & SINUS: normal facial exam and face symmetric NOSE: Normal external nose present Eye: COMMON NORMALS: Equal, round and reactive pupils present and EOMs intact bilaterally PUPIL: Yes Equal, round and reactive pupils present Neck/C-Spine: GENERAL: Yes trachea midline Chest: CHEST: Yes Symmetrical chest wall rise Resp: EFFORT & INSPECTION: No able to speak in complete sentences and Yes tachypneic AUSCULTATION: rales (faint, fine) and diminished lung sounds Cardio: COMMON NORMALS: regular rate and regular rhythm RATE: regular rate RHYTHM: regular rhythm GI: COMMON NORMALS: Normal to inspection, nondistended, normoactive bowel sounds present Extremity: COMMON NORMALS: no pedal edema Neuro: LASHAWN COMA SCALE: document GCS findings Lashawn coma scale eye opening: Spontaneous Lashawn coma scale verbal response: Orientated Ls[place]awn coma scale motor response: Obey commands Painter coma scale total score: 15 S ENSORY EXAM: Yes extremities (intact) Psych: COMMON NORMALS: speech normal SPEECH: Yes normal speech Skin: COMMON NORMALS: no rashes or lesions noted GENERAL SKIN EXAM: no rashes or lesions noted Course 2 Vital Signs: Vital signs: Vital Signs Temperature 98.0 F 02/03/24 16:52 Pulse Rate 83 02/03/24 16:52 Respiratory Rate 16 02/03/24 16:52 Blood Pressure 151/93 02/03/24 16:52 Pulse Oximetry 91 02/03/24 16:52 Oxygen Delivery Me thod Nasal Cannula 02/03/24 16:52 Oxygen Flow Rate 3 02/03/24 16:52 MDM - SOB/Dyspnea Medical Decision Making Chest x-ray shows pulmonary vascular congestion that is significant. Her BNP is elevated, above baseline from prior admission. White blood cell count is 16. Hemoglobin is 18.5. Creatinine is near baseline at 1.5. Potassium is low. Potassium is repleted. Blood gas is pending. Respiratory panel is pending. She is given a breathing treatment here. Spoke with the hospitalist. Will put her in observation, as she has not done well at home. She may require rehab stay. He will see the patient. Lab Data 02/03/24 17:03 02/03/24 17:03 Labs/Radiology: Radiology Impressions Chest X-Ray 02/03/24 16:45 IMPRESSION: Increased interstitial markings with peribronchial cuffing throughout both lungs are nonspecific but can be seen the setting of bronchitis, pulmonary vascular congestion, viral infection and small-vessel airways disease. Laboratory Results WBC 15.59 10^3/uL (3.29-11.43) H 02/03/24 17:03 RBC 6.61 10^6/uL (3.85-5.65) H 02/03/24 17:03 Hgb 18.50 g/dL (11.27-16.99) H 02/03/24 17:03 Hct 56.8 % (36-47) H 02/03/24 17:03 MCV 85.9 fl (85-98) 02/03/24 17:03 MCH 28.0 pg (27-33) 02/03/24 17:03 MCHC 32.6 g/dL (30-55) 02/03/24 17:03 RDW 16.9 % (12.1-15.1) H 02/03/24 17:03 Plt Count 273 10^3/cmm (157-399) 02/03/24 17:03 MPV 10.8 fL (7.4-10.4) H 02/03/24 17:03 Neut % (Auto) 81.5 % 02/03/24 17:03 Lymph % (Auto) 10.3 % 02/03/24 17:03 [place] % (Auto) 6.5 % 02/03/24 17:03 Eos % (Auto) 0.3 % 02/03/24 17:03 Baso % (Auto) 0.4 % 02/03/24 17:03 Neut # (Auto) 12.71 10^3/uL (1.8-7.7) H 02/03/24 17:03 Lymph # (Auto) 1.6 10^3/uL (0.8-4.8) 02/03/24 17:03 [place] # (Auto) 1.0 10^3/uL (0.2-0.9) H 02/03/24 17:03 Eos # (Auto) 0.1 10^3/uL (0.0-0.8) 02/03/24 17:03 Baso # (Auto) 0.1 10^3/uL (0.0-0.1) 02/03/24 17:03 Nucleated RBC % (auto) 0 % 02/03/24 17:03 Nucleated RBCs # 0.0 /100WBC 02/03/24 17:03 Sodium 138 mmol/L (136-145) 02/03/24 17:03 Potassium 3.2 mmol/L (3.5-5.1) L 02/03/24 17:03 Chloride 87 mmol/L (98-107) L 02/03/24 17:03 Carbon Dioxide 41 mmol/L (22-29) H 02/03/24 17:03 Anion Gap 13.2 (5-19) 02/03/24 17:03 BUN 55 mg/dL (8-23) H 02/03/24 17:03 Creatinine 1.5 mg/dL (0.5-0.9) H 02/03/24 17:03 GFR Calculation 34.4 mL/min (90-130) L 02/03/24 17:03 Glucose 220 mg/dL (65-115) H 02/03/24 17:03 Calculated Osmolality 308 mOsm/kg (285-295) H 02/03/24 17:03 Calcium 10.0 mg/dL (8.5-10.5) 02/03/24 17:03 Total Bilirubin 0.6 mg/dL (0.15-1.2) 02/03/24 17:03 AST 46 U/L (0-32) H 02/03/24 17:03 ALT 66 U/L (0-33) H 02/03/24 17:03 Alkaline Phosphatase 95 U/L (35-105) 02/03/24 17:03 Troponin T Baseline 48 ng/L (0-10) H 02/03/24 17:03 NT-Pro-B Natriuret Pep 2140 pg/mL (0-125) H 02/03/24 17:03 Total Protein 7.3 g/dL (6.6-8.7) 02/03/24 17:03 Albumin 3.9 g/dL (3.5-5.2) 02/03/24 17:03 Globulin 3.4 g/dL (1.3-4.6) 02/03/24 17:03 All radiology interpretation(s) finalized by discharge Discharge Plan Discharge Patient Disposition: Placed in Observation Clinical Impression: Atrial fibrillation, Pulmonary edema, Respiratory failure with hypoxia Condition: Stable Prescriptions: No Action ketoconazole 2 % cream 1 applic topical BID Qty: 30 3RF Rx Instructions: Apply to affected areas in skin folds X3 weeks then PRN for flares. hydrocodone-acetaminophen 5-325 mg tablet 1 tab PO Q6H PRN (Reason: pain (scale score 7-10)) 15 Days Qty: 30 0RF (DME) Manual wheelchair See Rx Instructions .Route .MEDSUPPLY Qty: 1 0RF Rx Instructions: As directed (DME) [employer] Lou 14 Day Sensor Kit See Rx Instructions .Route Qty: 2 11RF Rx Instructions: As directed nitroglycerin [Nitrostat] 0.4 mg tablet, sublingual 0.4 mg SUBLINGUAL Q5M PRN (Reason: Chest Pain) Qty: 30 6RF Rx Instructions: do not exceed 3 doses per episode Ozempic 0.25 mg or 0.5 mg (2 mg/3 mL) pen injector 0.25 mg SUBCUT Q7D Qty: 3 3RF Lantus U-100 Insulin 100 unit/mL solution 90 unit SUBCUT BID Qty: 80 6RF triamcinolone acetonide 0.1 % ointment 1 applic topical BID Qty: 454 2RF Rx Instructions: apply to affected area no more than 2 weeks per month. not for face cyanocobalamin (vitamin B-12) [Vitamin B-12] 1,000 mcg tablet 1,000 mcg PO DAILY Qty: 30 6RF ondansetron HCl 4 mg tablet 4 mg PO Q8H PRN (Reason: nausea and vomiting) Qty: 30 3RF clopidogrel 75 mg tablet 75 mg PO DAILY Qty: 90 3RF (DME) FreeStyle Lou 14 Day [place] Misc See Rx Instructions .Route Qty: 1 12RF Rx Instructions: As directed (DME) insulin syringe-needle U-100 [BD Insulin Syringe] 1 mL 29 gauge x 1/2 syringe See Rx Instructions .Route Qty: 100 6RF Rx Instructions: As directed to inject insulin 2-3x/day allopurinol 300 mg tablet 300 mg PO DAILY Qty: 90 3RF apixaban 5 mg tablet 5 mg PO BID Qty: 180 3RF diltiazem HCl 120 mg capsule,extended release 24hr 120 mg PO DAILY Qty: 90 3RF levothyroxine 50 mcg tablet 50 mcg PO DAILY Qty: 90 3RF metoprolol tartrate 100 mg tablet 100 mg PO BID Qty: 180 3RF potassium chloride 20 mEq tablet,ER particles/crystals 20 meq PO BID Qty: 180 3RF cholecalciferol (vitamin D3) 50 mcg (2,000 unit) capsule 50 mcg PO DAILY Qty: 30 6RF pregabalin 50 mg capsule 50 mg PO BID Qty: 60 5RF lorazepam 1 mg tablet 1 mg PO BID PRN (Reason: anxiety) Qty: 60 1RF buspirone 10 mg tablet 10 mg PO TID Qty: 90 1RF Trintellix 10 mg tablet 10 mg PO DAILY Qty: 30 1RF acetaminophen 500 mg Tablet 1,000 mg PO Q6H PRN (Reason: Pain) simvastatin 40 mg tablet 40 mg PO BEDTIME bumetanide 2 mg tablet 2 mg PO DAILY Qty: 60 4RF Spiriva with HandiHaler 18 mcg capsule, w/inhalation device 1 cap inhalation DAILY Qty: 90 4RF Rx Instructions: puncture 1 cap using device; one dose = 2 inhalations Breo Ellipta 200-25 mcg/dose blister with device 1 inh inhalation DAILY Qty: 60 5RF Medrol (Obdulio) 4 mg tablets,dose pack See Rx Instructions .ROUTE .COMPLEX Qty: 21 0RF Rx Instructions: orally per package directions Robitussin ER 30 mg/5 mL suspension,extended rel 12 hr 10 ml PO Q12H Qty: 89 0RF azithromycin 500 mg tablet 500 mg PO DAILY 3 Days Qty: 3 0RF ketoconazole 2 % shampoo 1 applic topical Q3D Rx Instructions: Lather into scalp 2-3 times weekly. Allow to sit on scalp 5 minutes before rinsing. metolazone 10 mg tablet 10 mg PO DAILY Qty: 5 0RF Referrals: Farhat Acosta MD [Primary Care Provider] - Coding Level of Care Code ED [employer] for [facility]
[2024-02-03 18:49] LABS: Troponin(5th) Baseline 48 ng/L (0-10)
[2024-02-03] MEDS: potassium chloride oral liq 20 mEq/15 mL UDC 40 MEQ PO (19:06)
[2024-02-03] MEDS: ondansetron 2 mg/ML SDV 2 mL 4 MG IVP ×2 (19:06→23:05)
[2024-02-03] MEDS: fentaNYL 50 mcg/mL INJ 2mL IVP (19:06)
[2024-02-03 19:19] LABS: Glucose Point of Care 230 mg/dL (70-110)
[2024-02-03] MEDS: ipratropium-albuterol 3 mL Neb INHALATION (19:34)
[2024-02-03 19:38] LABS: Troponin 5 2HR 46.78 ng/L (0-10)
[2024-02-03 19:39] LABS: Troponin 5 2HR Delta -1.22 ABS# (0-10)
[2024-02-03 19:51] LABS: ABG PCO2 54.6 mmHg (35-45); Arterial Blood Gas Hematocrit 57.1 % (37-47); Base Excess ABG 15.1 mmol/L (-2.0-2.0); Blood Gas Allen Test Pos; Blood Gas Sample Site Brachial, left; Blood Gas Sample Type Arterial; Oxygen Device NC; PO2 ABG 59.9 mmHg (80.0-100.0)
--- NOTE | 2024-02-03 20:11 | P.HP_ITS ---
Providers/Chief Complaint 2 Admitting Physician: Rayray Peters Primary Care Provider: Farhat Acosta MD Chief Complaint: SOB History of Present Illness Pleasant 68-year-old lady recently hospitalized and discharged on 03/03 after treatment for CHF exacerbation, returns to the hospital due to shortness of breath, dyspnea, generalized weakness, difficulties with ambulation, desaturating easily despite baseline oxygen of about 3 L/min. Also with some cough, subjective fever, chills, in ER with leukocytosis 15.59, sinus tachycardia 107, mild tachypnea 20-21. Some intermittent chest heaviness. Baseline troponin 48. NT proBNP 2140. Weight of 143 kg. Chest x-ray with increased interstitial markings with peribronchial cuffing throughout both lungs nonspecific but possibly bronchitis, pulmonary vascular congestion, viral infection versus small vessel airway disease. Review of Systems 2 Const: Reports: fever(s), chills and fatigue; Denies: body aches or malaise ENMT: Denies: throat pain Card: Reports: chest pain, edema and dyspnea on exertion; Denies: pre-syncope Resp: Reports: dyspnea and non-productive cough; Denies: productive cough, change in phlegm color or hemoptysis GI: Denies: abdominal pain, nausea, vomiting, diarrhea, constipation, hematochezia or melena : Denies: flank pain, urinary frequency or hematuria Musc: Denies: back pain, joint swelling or joint redness Skin/Breast: Denies: rash or new lesions Neuro: Denies: headache(s) Medications/Allergies Home Medications Medication Instructions Recorded Confirmed Last Taken Type cyanocobalamin (vitamin B-12) 1,000 mcg PO DAILY #30 tabs 02/05/22 01/31/24 01/30/24 Rx 1,000 mcg tablet (Vitamin B-12) acetaminophen 500 mg tablet 1,000 mg PO Q6H PRN Pain 05/11/22 01/31/24 03/05/23 History ondansetron HCl 4 mg tablet 4 mg PO Q8H PRN nausea and 07/28/22 01/31/24 Unknown Rx vomiting #30 tabs ketoconazole 2 % topical cream 1 applic topical BID #30 grams 09/06/22 01/31/24 01/30/24 Rx flash glucose sensor (FreeStyle #2 ea 03/27/23 01/31/24 Unknown Rx Lou 14 Day Sensor kit) clopidogrel 75 mg tablet 75 mg PO DAILY #90 tabs 04/02/23 01/31/24 01/30/24 Rx ketoconazole 2 % shampoo 1 applic topical Q3D 04/04/23 01/31/24 01/30/24 History flash glucose scanning reader #1 ea 05/14/23 01/31/24 Unknown Rx (FreeStyle Lou 14 Day [place]) nitroglycerin 0.4 mg sublingual 0.4 mg sublingual Q5M PRN Chest 05/24/23 01/31/24 Unknown Rx tablet (Nitrostat) Pain #30 tabs insulin syringe-needle U-100 1 mL #100 ea 06/12/23 01/31/24 Unknown Rx 29 gauge x 1/2 (BD Insulin Syringe) metolazone 10 mg tablet 10 mg PO DAILY #5 tabs 08/14/23 01/31/24 01/30/24 Rx hydrocodone 5 mg-acetaminophen 325 1 tab PO Q6H PRN pain (scale score 08/20/23 01/31/24 Unknown Rx mg tablet 7-10) 15 days #30 tabs semaglutide 0.25 mg or 0.5 mg (2 0.25 mg (0.368 mL) SUBCUT Q7D #3 mL 10/11/23 01/31/24 01/30/24 Rx mg/3 mL) subcutaneous pen injector (Ozempic) allopurinol 300 mg tablet 300 mg PO DAILY #90 tabs 10/22/23 01/31/24 01/30/24 Rx apixaban 5 mg tablet 5 mg PO BID #180 tabs 10/22/23 01/31/24 01/30/24 Rx diltiazem HCl 120 mg 120 mg PO DAILY #90 caps 10/22/23 01/31/24 01/30/24 Rx capsule,extended release 24 hr levothyroxine 50 mcg tablet 50 mcg PO DAILY #90 tabs 10/22/23 01/31/24 01/30/24 Rx metoprolol tartrate 100 mg tablet 100 mg PO BID #180 tabs 10/22/23 01/31/24 01/30/24 Rx potassium chloride 20 mEq 20 meq PO BID #180 tabs 10/22/23 01/31/24 01/30/24 Rx tablet,extended release(part/cryst) cholecalciferol (vitamin D3) 50 50 mcg PO DAILY #30 caps 10/30/23 01/31/24 01/30/24 Rx mcg (2,000 unit) capsule pregabalin 50 mg capsule 50 mg PO BID #60 caps 11/06/23 01/31/24 01/30/24 Rx Manual wheelchair #1 ea 12/05/23 01/31/24 Unknown Rx simvastatin 40 mg tablet 40 mg PO BEDTIME 12/05/23 01/31/24 01/29/24 History lorazepam 1 mg tablet 1 mg PO BID PRN anxiety #60 tabs 12/13/23 01/31/24 01/30/24 Rx insulin glargine 100 unit/mL 90 unit (0.9 mL) SUBCUT BID #80 mL 12/17/23 01/31/24 01/30/24 Rx subcutaneous solution (Lantus U-100 Insulin) triamcinolone acetonide 0.1 % 1 applic topical BID #454 grams 12/17/23 01/31/24 01/30/24 Rx topical ointment buspirone 10 mg tablet 10 mg PO TID #90 tabs 01/10/24 01/31/24 01/30/24 Rx vortioxetine 10 mg tablet 10 mg PO DAILY #30 tabs 01/10/24 01/31/24 01/30/24 Rx (Trintellix) azithromycin 500 mg tablet 500 mg PO DAILY 3 days #3 tabs 02/01/24 Unknown Rx bumetanide 2 mg tablet 2 mg PO DAILY #60 tabs 02/01/24 Unknown Rx dextromethorphan polistirex 30 10 ml PO Q12H #89 mL 02/01/24 Unknown Rx mg/5 mL oral susp ext.release 12hr (Robitussin ER) fluticasone furoate 200 1 inh inhalation DAILY #60 ea 02/01/24 Unknown Rx mcg-vilanterol 25 mcg/dose inhalation powder (Breo Ellipta) methylprednisolone 4 mg tablets in See Rx Instructions PO .COMPLEX 02/01/24 Unknown Rx a dose pack (Medrol (Obdulio)) #21 ea tiotropium bromide 18 mcg capsule 1 cap inhalation DAILY #90 02/01/24 Unknown Rx with inhalation device (Spiriva inhalations with HandiHaler) Allergies Allergy/AdvReac Type Severity Reaction Status Date / Time morphine Allergy Severe Quit Verified 02/03/24 16:52 breathing amiodarone Allergy ALGY-Anaphy Verified 02/03/24 16:52 laxis shellfish derived AdvReac Severe Hives & Verified 02/03/24 16:52 throat swells meperidine [From Demerol] AdvReac Intermediate Made N & V Verified 02/03/24 16:52 Penicillins AdvReac Intermediate RAsh Verified 02/03/24 16:52 PFSH Acute 2 PFSH: Medical History (Updated 02/03/24 @ 20:40 by Rayray Peters MD) CHF (congestive heart failure) Acute hip pain Fall Weakness COPD with acute exacerbation Acute on chronic hypoxic respiratory failure Pneumonia CHF exacerbation SOB (shortness of breath) Urinary retention Abscess Gait instability Positive cardiac stress test Fluid overload Muscle pain Skin rash Diarrhea Bronchospasm Hyperglycemia Chronic pain Diarrhea Generalized anxiety disorder Type 2 diabetes mellitus MRSA (methicillin resistant staph aureus) culture positive Influenza A Community acquired pneumonia Vitamin B12 deficiency Diabetes type 2, uncontrolled Psychiatric care Polypharmacy Gout Hyperlipidemia Hypothyroidism Fibromyalgia Depression CKD (chronic kidney disease) Chronic respiratory failure Amiodarone pulmonary toxicity Atrial fibrillation Hypercholesteremia HTN (hypertension) CAD (coronary artery disease) Last echocardiogram 08/06 with EF of 50% Stents x 3 - last in 02/2023 Major depressive disorder, recurrent severe without psychotic features Chronic pain She reports taking pain medicines and muscle relaxers for a recent back injury; she has chronic left leg pain. Surgical History History of incision and drainage Right breast abscess History of coronary artery stent placement H/O left knee surgery Hx of cholecystectomy History of hysterectomy partial H/O section History of back surgery H/O eye surgery History of carpal tunnel release H/O cardiac radiofrequency ablation Family History Mother Cancer breast Stroke Brother Heart disease Asthma Cancer prostate Sister Heart disease Social History Smoking and tobacco/nicotine status: never used tobacco/nicotine Alcohol intake: never Substance/Drug Use: never Housing: Other Details: Currently with her family Vitals/I&O/Wt Last Vital Signs Temp 98.0 F 02/03/24 16:52 Pulse 81 02/03/24 19:38 Resp 18 02/03/24 19:38 BP 168/112 02/03/24 18:30 Pulse Ox 93 02/03/24 19:38 O2 Del Method Nasal Cannula 02/03/24 19:38 O2 Flow Rate 3 02/03/24 19:38 Weight last 48 hrs Weight 142.882 kg Physical Exam 2 Narrative: Accompanied by her daughter. Const: COMMON NORMALS: patient oriented x3 and alert GENERAL APPEARANCE: c ooperative NUTRITIONAL APPEARANCE: obese ORIENTATION/CONSCIOUSNESS: Yes awake OTHER: Ill-appearing. HENMT: COMMON NORMALS: oropharynx normal Neck/C-Spine: COMMON NORMALS: no JVD Resp: AUSCULTATION: crackles, rhonchi, wheezes and diminished lung sounds Cardio: COMMON NORMALS: no JVD, regular rhythm, S1 normal heart sound present, S2 normal heart sound present and No murmurs present (Cardio) RHYTHM: regular rhythm HEART SOUNDS: S1 normal heart sound present and S2 normal heart sound present OTHER: Flutter waves on telemetry. GI: COMMON NORMALS: Normal to inspection, nondistended, normoactive bowel sounds present, Soft to palpation and non-tender PALPATION: Yes Soft to palpation Extremity: COMMON NORMALS: no joint enlargement GENERAL: Yes edema Neuro: COMMON NORMALS: patient oriented x3 and moves all extremities S ENSORIUM/ORIENTATION: Yes alert Skin: COMMON NORMALS: no rashes or lesions noted GENERAL SKIN EXAM: no rashes or lesions noted Data 02/03/24 17:03 02/03/24 17:03 A&P Assessment and plan (1) Respiratory failure with hypoxia: No acute on chronic respiratory failure with hypoxia, normally on 3 L of oxygen, on baseline oxygen desaturating down into the 80s very quickly with minimal exertion. With tachycardia 107, tachypnea 20-21. ABG with hypoxemia 59.9 despite usual 3 L of oxygen. Very easy fatigability. Cough. Wheezing, rhonchi, crackles on exam. Reviewed vitals, CBC, ABG, CMP, NT proBNP, baseline troponin, chest x-ray, EKG, on my interpretation with atrial flutter, LAF, difficult to interpret with flutter valve, possibly some ST depression in V3, V4, although T waves did not appear inverted. No obvious sign of acute CA. Pending official interpretation. Reviewed ER note, discussed with ER provider. Etiology not entirely clear, but he does appear to be in congestive heart failure exacerbation as per discussion with patient with pulmonary edema with NT proBNP higher than just recently at discharge, up to 2140 without any significant change in renal function, with dyspnea on exertion, crackles on exam. Acute diastolic congestive heart failure exacerbation. However, true cardiac function not entirely known, last echo was just over a year ago. Did have a stress test beginning of January where ejection fraction was found to be 50%. Follow-up TTE. Additionally possible atypical pneumonia, possibly viral with noted new transaminitis, with cough, wheezing, respiratory viral panel as ordered. Follow-up. Empirically ceftriaxone, azithromycin for now. Breathing treatments. With risk of QT prolongation with azithromycin recheck EKG in the morning. PE less likely she continues on anticoagulation. Continue Eliquis. Has been having chest pressure, complete troponin EKG series, obtain TTE. Monitor on telemetry to assess for possible unstable angina. Continue oxygen support per protocol. Wean down as tolerating. (2) CHF exacerbation: Acute diastolic CHF exacerbation, last EF 50% on stress test. Reassess TTE. IV diuresis with Bumex, continue metolazone. Monitor for risk of electrolyte deficiency, renal dysfunction with IV diuretics. Reassess chemistry. Monitor on telemetry. Received potassium supplementation. Recheck. Check magnesium. Monitor KITTY Fluid restriction 1500 mL. (3) Interstitial pneumonitis: No reports of aspiration. Will assess respiratory viral panel as above. Empiric ceftriaxone, azithromycin as above. Monitor for risk of QT prolongation. Recheck EKG in the morning. Diuresis as above for possible pulmonary edema with acute decompensation of diastolic heart failure. Assess TTE for cardiac function/valves. (4) Physical deconditioning: Very weak with exertion. Has not been able to manage things at home exacerbated by worsening condition as above. PT assessment. Case management consultation. (5) Transaminitis: New transaminitis, assess respiratory viral panel with possible atypical pneumonia. Otherwise possibly secondary to congestive heart failure exacerbation. Has not had an echo in just about a year. Assess TTE. Possible right ventricular decompensation/heart failure. Recheck liver parameters. (6) Hypokalemia: Received potassium replacement. Recheck chemistry. Check magnesium. Plan DM2: Sliding scale insulin. Consistent carb diet. Continue LantusAt reduced dose for now at 70 units twice daily. Monitor POC glucose. CKD: Creatinine close to baseline Atrial fibrillation: Continue Eliquis, diltiazem, metoprolol. Amiodarone pulmonary toxicity HTN: : Monitor blood pressures, continue Cardizem, metoprolol, diuretics as above. CAD, stenting x 3: Continue Plavix, Eliquis. Metoprolol. Statin. Hypothyroidism: Continue levothyroxine Fibromyalgia And chronic pain: Continue vortioxetine, hydrocodone Depression: Cont vortioxetine Attestations 2 Medical Necessity Statement*: Admission of over 2 midnights anticipated for assessment management of acute on chronic respiratory failure, acute decompensated diastolic CHF, interstitial pneumonitis, possible atypical pneumonia, chest pressure, in a lady with underlying CAD with prior stenting, CKD, DM 2, morbid obesity, atrial fibrillation, additional comorbidities as above at risk of life-threatening decompensation. Diagnoses Respiratory failure with hypoxia J96.91 CHF exacerbation I50.9 Interstitial pneumonitis J84.89 Physical deconditioning R53.81 Transaminitis R74.01 Hypokalemia E87.6
--- NOTE | 2024-02-03 20:32 | ECG_ITS ---
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 Measurements Intervals [place] Rate: 110 P: 0 AL: 0 QRS: -16 QRSD: 108 T: -12 QT: 269 QTc: 365 Interpretive Statements ATRIAL FIBRILLATION WITH RAPID VENTRICULAR RESPONSE NONSPECIFIC ST & T-WAVE ABNORMALITY Compared to ECG 02/03/2024 19:14:11 Left anterior fascicular block no longer present Possible ischemia no longer present T-wave abnormality still present Electronically Signed On 02-04-2024 12:09:44 CDT by Seth Santillan M.D. [id number]
[2024-02-03 21:18] LABS: Adenovirus Not Detected (NOT DETECT); Chlamydia Pneumoniae Not Detected (NOT DETECT); Coronavirus 229E,HKU1,NL63,OC4 Not Detected (NOT DETECT); Human Metapneumovirus Detected (NOT DETECT); Human Rhinovirus/Enterovirus Not Detected (NOT DETECT); Influenza A Not Detected (NOT DETECT); Influenza A H1 Not Detected (NOT DETECT); Influenza A H1-2009 Not Detected (NOT DETECT); Influenza A H3 Not Detected (NOT DETECT); Influenza B Not Detected (NOT DETECT); Mycoplasma Pneumoniae Not Detected (NOT DETECT); Parainfluenza Virus Type 1 Not Detected (NOT DETECT); Parainfluenza Virus Type 2 Not Detected (NOT DETECT); Parainfluenza Virus Type 3 Not Detected (NOT DETECT); Parainfluenza Virus Type 4 Not Detected (NOT DETECT); Respiratory Syncytial Virus A Not Detected (NOT DETECT); Respiratory Syncytial Virus B Not Detected (NOT DETECT); SARS-COV-2 Not Detected (NOT DETECT)
[2024-02-03] MEDS: bumetanide 0.25 mg/mL SDV 10 mL 2 MG IVP (23:05)
[2024-02-03] MEDS: azithromycin 500 MG in sodium chloride 0.9% 250 ML 250 MG IV (23:07)
[2024-02-03] MEDS: cefTRIAXone 1,000 mg SDV 1000 MG IVP (23:07)
[2024-02-03] MEDS: BuSPIRONE 10 mg Tablet PO (23:35)
[2024-02-03] MEDS: HYDROcodone-acetaminophen 5-325 mg Tablet 1 TAB PO (23:35)
[2024-02-03] MEDS: apixaban 5 mg Tablet PO (23:36)
[2024-02-04] VITALS (14 sets, daily range): BP systolic 111–147; BP diastolic 70–83; PULSE 78–117; RESP 16–21; TEMP 36.6–37; O2SAT 91–93
[2024-02-04 00:09] LABS: Glucose Point of Care 137 mg/dL (70-110)
--- NOTE | 2024-02-04 00:32 | ECG_ITS ---
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 Measurements Intervals [place] Rate: 115 P: 0 [place]: 0 QRS: 9 QRSD: 113 T: -8 QT: 260 QTc: 361 Interpretive Statements ATRIAL FIBRILLATION WITH RVR INDETERMINATE AXIS MODERATE INTRAVENTRICULAR CONDUCTION DELAY [110+ ms QRS DURATION] NONSPECIFIC ST & T-WAVE ABNORMALITY Compared to ECG 02/03/2024 22:47:44 Indeterminate axis now present Intraventricular conduction delay now present T-wave abnormality still present Electronically Signed On 02-04-2024 12:08:39 CDT by Seth Santillan M.D. [id number]
[2024-02-04 01:20] LABS: Basophils # 0.1 10^3/uL (0.0-0.1); Basophils % 0.3 %; Eosinophils % 0.1 %; Hematocrit 57.7 % (36-47); Lymphocytes # 2.1 10^3/uL (0.8-4.8); Lymphocytes % 7.7 %; Mean Corpuscular HGB Conc 31.9 g/dL (30-55); Mean Corpuscular Hemoglobin 27.8 pg (27-33); Monocytes # 2.8 10^3/uL (0.2-0.9); Neutrophils # 22.48 10^3/uL (1.8-7.7); Neutrophils % 80.9 %; Nucleated Red Blood Cells % 0 %; Platelet Count 291 10^3/cmm (157-399); Red Blood Count 6.63 10^6/uL (3.85-5.65); Red Cell Distribution Width 17.2 % (12.1-15.1); White Blood Count 27.78 10^3/uL (3.29-11.43)
[2024-02-04 01:39] LABS: Alanine Aminotransferase 64 U/L (0-33); Albumin Level 3.8 g/dL (3.5-5.2); Alkaline Phosphatase 97 U/L (35-105); Anion Gap 20.1 (5-19); Aspartate Amino Transferase 44 U/L (0-32); Blood Urea Nitrogen 63 mg/dL (8-23); Calcium 9.9 mg/dL (8.5-10.5); Carbon Dioxide 33 mmol/L (22-29); Chloride 89 mmol/L (98-107); Creatinine Clr Calc Pharmacy 44.4675; Globulin 3.7 g/dL (1.3-4.6); Glomerular Filtration Rate 27.9 mL/min (90-130); Glucose 135 mg/dL (65-115); Osmolality Calculated 308 mOsm/kg (285-295); Potassium 3.1 mmol/L (3.5-5.1); Sodium 139 mmol/L (136-145); Total Bilirubin 0.6 mg/dL (0.15-1.2); Total Protein 7.5 g/dL (6.6-8.7)
[2024-02-04 01:40] LABS: Troponin 5 6HR 56.34 ng/L (0-10); Troponin 5 6HR Delta 8.34 ng/L (0-12)
[2024-02-04] MEDS: ipratropium-albuterol 3 mL Neb INHALATION ×2 (02:27→08:47)
[2024-02-04 06:29] LABS: Glucose Point of Care 81 mg/dL (70-110)
[2024-02-04] MEDS: azithromycin 250 MG in sodium chloride 0.9% 250 ML IV (08:32)
[2024-02-04] MEDS: dilTIAZem ER (24HR) 120 mg Capsule PO (08:33)
[2024-02-04] MEDS: bumetanide 0.25 mg/mL SDV 10 mL 2 MG IVP ×2 (08:33→17:12)
[2024-02-04] MEDS: apixaban 5 mg Tablet PO ×2 (08:34→17:13)
[2024-02-04] MEDS: potassium chloride ER 20 mEq Tablet PO ×2 (08:34→17:13)
[2024-02-04] MEDS: levothyroxine 50 mcg Tablet PO (08:34)
[2024-02-04] MEDS: metOLazone 5 MG Tablet 10 MG PO (08:34)
[2024-02-04] MEDS: allopurinol 300 mg Tablet PO (08:34)
[2024-02-04] MEDS: pregabalin 50 mg Capsule PO ×2 (08:34→17:13)
[2024-02-04] MEDS: BuSPIRONE 10 mg Tablet PO ×3 (08:34→22:55)
[2024-02-04] MEDS: metoprolol tartrate 50 mg Tablet 100 MG PO ×2 (08:34→17:13)
[2024-02-04] MEDS: clopidogrel 75 mg Tablet PO (08:34)
--- NOTE | 2024-02-04 08:51 | ECG_ITS ---
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 Measurements Intervals [employer] Rate: 111 P: 0 [place]: 0 QRS: 85 QRSD: 109 T: -22 QT: 292 QTc: 398 Interpretive Statements ATRIAL FLUTTER WITH RAPID VENTRICULAR RESPONSE WITH ABERRANT CONDUCTION OR VENTRICULAR PREMATURE COMPLEXES INDETERMINATE AXIS NONSPECIFIC ST & T-WAVE ABNORMALITY Compared to ECG 02/04/2024 02:34:43 Ventricular premature complex(es) now present Aberrant conduction of supraventricular beat(s) now present Intraventricular conduction delay no longer present T-wave abnormality still present Electronically Signed On 02-04-2024 12:06:43 CDT by Seth Santillan M.D. [id number]
[2024-02-04] MEDS: nystatin powder 15 gm Btl 1 APPLIC TOPICAL ×2 (08:55→18:16)
--- NOTE | 2024-02-04 09:05 | CTR_ITS ---
PROCEDURE INFORMATION: Exam: CT Chest Without Contrast; Diagnostic Exam date and time: 02/04/2024 10:19 AM Age: 68 years old Clinical indication: Shortness of breath; Additional info: Copd/pna TECHNIQUE: Imaging protocol: Diagnostic computed tomography of the chest without contrast. Radiation optimization: All CT scans at this facility use at least one of these dose optimization techniques: automated exposure control; mA and/or kV adjustment per patient size (includes targeted exams where dose is matched to clinical indication); or iterative reconstruction. COMPARISON: CT angio chest PE protcl [id number] 07/28/2022 9:54 PM RADIATION DOSE METRICS: Total DLP (mGy-cm): 748 FINDINGS: Lungs: There are several rounded masslike densities in the left lower lobe. These probably represent areas of consolidation or atelectasis. A mass is not excluded. Follow-up chest CT in 3 months recommended. Mild right middle lobe infiltrate visible as well. Pleural spaces: Unremarkable. No pneumothorax. No pleural effusion. Heart: Unremarkable. No cardiomegaly. No pericardial effusion. Lymph nodes: Visible central lymph nodes are not pathologically enlarged. There are moderate in size, unchanged since 07/28/2022. Vasculature: Unremarkable. No aortic aneurysm. Gallbladder and biliary ducts: Cholecystectomy. Bones/joints: Unremarkable. No acute fracture. Soft tissues: Unremarkable. CT/CT chest wo con [id number] IMPRESSION: Masslike opacities in the left lower lobe. Three-month follow-up chest CT recommended.
[2024-02-04 09:54] LABS: Iron 27 ug/dL (37-145); Percent Saturation 8.3 % (20-50); Total Iron Binding Capacity 322 mcg/dl; Unsaturated Iron Binding 295 ug/dL (112-347)
[2024-02-04 10:09] LABS: Procalcitonin 0.21 ng/mL (0-0.5)
[2024-02-04] MEDS: methylPREDNISolone sod succ 40 mg/mL INJ IVP ×2 (10:37→17:12)
[2024-02-04] MEDS: potassium chloride ER 20 mEq Tablet 40 MEQ PO (10:37)
[2024-02-04] MEDS: vancomycin 1,000 MG in sodium chloride 0.9% 250 ML 250 MG IV (10:37)
[2024-02-04 11:15] LABS: Charge for UA Resulting for Rev
[2024-02-04 11:32] LABS: Vitamin B12 > 2000 pg/mL (232-1245)
[2024-02-04 11:57] LABS: Bilirubin Urine Neg (Negative); Blood Urine 3+ (Negative); Glucose Urine UA Norm (Normal); Ketones Urine Negative (Negative); Nitrate Urine Negative (Negative); Protein Urine 1+ (Negative); Urine Appearance Clear (CLEAR); Urine Color Yellow (Yellow); Urobilinogen Urine Norm (Negative); pH Urine 5 (5-7)
[2024-02-04 11:58] LABS: Leukocyte Esterase Urine Trace (Negative); UA Manual Slide Review YES
[2024-02-04 11:59] LABS: Bacteria Urine 1+ /hpf; Hyaline Casts Urine 0-4 /lpf; RBC Urine 25-40 /hpf (0-2); Squamous Epithelial Cell Urine 0-4 /hpf (0-5); WBC Urine 0-4 /hpf (0-5)
[2024-02-04 12:00] LABS: Add Urine Culture? Yes
--- NOTE | 2024-02-04 12:25 | PHA.VACGOAL ---
Vancomycin Goal - Goal Vancomycin Goal:: 10-15 mg/L Vancomycin Indication:: Other - Therapy Current therapy:: Other Antibiotic (CEFTRIAXONE 1000 MG Q24H) Day of therpy:: Day [1]of [] Actual body weight (kg): 291 lb 9.6 oz [place] body weight: 63.9 Dosing weight (kg): 91.2 - Data Labs: WBC 27.78 10^3/uL (3.29-11.43) H 02/04/24 00:47 RBC 6.63 10^6/uL (3.85-5.65) H 02/04/24 00:47 Hgb 18.40 g/dL (11.27-16.99) H 02/04/24 00:47 Hct 57.7 % (36-47) H 02/04/24 00:47 MCV 87.0 fl (85-98) 02/04/24 00:47 MCH 27.8 pg (27-33) 02/04/24 00:47 MCHC 31.9 g/dL (30-55) 02/04/24 00:47 RDW 17.2 % (12.1-15.1) H 02/04/24 00:47 Sodium 139 mmol/L (136-145) 02/04/24 00:47 Potassium 3.1 mmol/L (3.5-5.1) L 02/04/24 00:47 Chloride 89 mmol/L (98-107) L 02/04/24 00:47 Carbon Dioxide 33 mmol/L (22-29) H 02/04/24 00:47 Anion Gap 20.1 (5-19) H 02/04/24 00:47 BUN 63 mg/dL (8-23) H 02/04/24 00:47 Creatinine 1.8 mg/dL (0.5-0.9) H 02/04/24 00:47 GFR Calculation 27.9 mL/min (90-130) L 02/04/24 00:47 Last dialysis session:: N/A Treatment plan:: new consult Regimen:: 1000 MG Q24H Follow up:: TROUGH OBTAINED PRIOR TO 4TH DOSE WILL MONITOR AND FOLLOW UP DAILY
--- NOTE | 2024-02-04 13:10 | P.PN_ITS ---
Subjective 2 Subjective: Hospital course, labs appreciated. On examination patient laying comfortably in bed on 3 L of oxygen supplementation. She states she is feeling terrible. Denies any nausea, vomiting, headache. Complaining of feeling weak and difficulty in breathing getting worse both on rest and on exertion. Vitals/I&O/Wt Last Vital Signs Temp 98.2 F 02/04/24 07:53 Pulse 117 H 02/04/24 08:00 Resp 18 02/04/24 08:00 BP 117/80 02/04/24 07:53 Pulse Ox 92 02/04/24 08:00 O2 Del Method Nasal Cannula 02/04/24 08:00 O2 Flow Rate 3 02/04/24 08:00 02/03/24 02/04/24 02/04/24 22:59 06:59 14:59 Intake Total 250 / 250 500 / 500 Output Total 100 / 100 Balance 150 / 150 500 / 500 Weight last 48 hrs Weight 132.268 kg Weight 142.882 kg Weight 142.882 kg Physical Exam 2 Const: COMMON NORMALS: patient oriented x3 and alert GENERAL APPEARANCE: c ooperative NUTRITIONAL APPEARANCE: obese ORIENTATION/CONSCIOUSNESS: Yes awake OTHER: Ill-appearing. HENMT: COMMON NORMALS: oropharynx normal Neck/C-Spine: COMMON NORMALS: no JVD Resp: COMMON NORMALS: normal respiratory effort and clear to auscultation bilaterally AUSCULTATION: clear to auscultation bilaterally, crackles, rhonchi, wheezes and diminished lung sounds Cardio: COMMON NORMALS: no JVD, regular rhythm, S1 normal heart sound present, S2 normal heart sound present and No murmurs present (Cardio) RHYTHM: regular rhythm HEART SOUNDS: S1 normal heart sound present and S2 normal heart sound present OTHER: Flutter waves on telemetry. GI: COMMON NORMALS: Normal to inspection, nondistended, normoactive bowel sounds present, Soft to palpation and non-tender PALPATION: Yes Soft to palpation Extremity: COMMON NORMALS: no joint enlargement and no pedal edema GENERAL: Yes edema Neuro: COMMON NORMALS: patient oriented x3 and moves all extremities S ENSORIUM/ORIENTATION: Yes alert Skin: COMMON NORMALS: no rashes or lesions noted GENERAL SKIN EXAM: no rashes or lesions noted Urinary Catheter Management: Esposito: Cath Placed During This Visit: yes Reason for Continuing Indwelling Catheter: Other Urinary Catheter Date of Insertion: 02/04/24 Data 02/04/24 00:47 02/04/24 00:47 Micro: Microbiology 02/04/24 11:06 Legionella Urinary Antigen - Final Unknown Source 02/04/24 11:06 Bacterial Antigens - Final Urine Kidney A&P Assessment and plan (1) Respiratory failure with hypoxia: Acute on chronic hypoxic respiratory failure. Multifactorial. Most likely a combination of COPD exacerbation in setting of metapneumovirus infection, cannot rule out pneumonia given possible consolidation in left lower zone, recent hospitalization, congestive heart failure exacerbation. proBNP slightly elevated as compared to recent discharge. Oxygen supplementation keeping saturation over 90%. Start on Pulmicort twice daily, changed to ipratropium and Xopenex every 6 hours given tachycardia. Add Solu-Medrol 40 mg every [address] chest without contrast for further evaluation of possible consolidation given recurrent admission with hypoxia. Check sputum culture. History of MRSA in the wound recently. Check urine Legionella and bacterial antigen. Continue with azithromycin. Change dose to 500 mg IV daily. Will continue to finish a 3-day course to cover atypicals. Continue with IV ceftriaxone. Add vancomycin. Aggressive pulmonary toilet with incentive spirometry. Out of bed to chair. Echocardiogram done. Results awaited. (2) CHF exacerbation: History of systolic and diastolic heart failure. Last echocardiogram showed poor echo windows EF of 45 to 50%. On high doses of diuretics at home with Bumex 2 mg oral daily, metolazone 10 mg oral daily. Currently patient showing mild worsening of GEORGES. Hold off on metolazone. Continue with Bumex 2 mg IV every 12 hours. Fluid restriction up to 1500 cc. Strict input output charting. Daily weights. Monitor renal functions. Replete potassium. (3) Interstitial pneumonitis: (4) Human metapneumovirus (hMPV) pneumonia: (5) Chronic systolic dysfunction of left ventricle: (6) CKD (chronic kidney disease): Baseline creatinine 1.4-1.7. Currently 1.8. BUN elevated. As above. Monitor daily. Medical reconciliation done for nephrotoxic drugs. Esposito catheterization as above. (7) Atrial fibrillation: With rapid ventricular response for now. Switch to ipratropium and Xopenex as above. For now continue with home dose of metoprolol 100 mg twice daily, Cardizem 120 mg oral daily. Depending on the heart rate over the next 24 hours and the vitals we will plan to uptitrate Cardizem as tolerated. 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 Will avoid. If remains tachycardic will plan for digoxin. Qualifiers: Atrial fibrillation type: persistent (not longstanding) Qualified Code(s): I48.19 - Other persistent atrial fibrillation (8) Transaminitis: Stable. Continue to monitor daily. Could be in setting of viral infection versus possible congestive hepatomegaly. (9) Hypokalemia: Received potassium replacement. Recheck. (10) Physical deconditioning: Very weak with exertion. Has not been able to manage things at home exacerbated by worsening condition as above. Appreciate PT assessment. Case management consultation. Possible discharge with home health once patient is medically stable. Plan DM2: Sliding scale insulin. Consistent carb diet. Continue LantusAt reduced dose for now at 70 units twice daily. Monitor POC glucose. Amiodarone pulmonary toxicity HTN: : Goal blood pressure less than 140/90 mmHg. Monitor blood pressures, continue Cardizem, metoprolol, diuretics as above. CAD, stenting x 3: Check A1c, lipid panel. Continue Plavix, Eliquis. Metoprolol. Statin. Hypothyroidism: Continue levothyroxine Depression: Cont vortioxetine Full code Cardiac carb consistent diet Fluid restriction. Out of bed to chair. Physical therapy. Famotidine for PUD prophylaxis Attestations 2 Medical Necessity Statement*: Requires further hospitalization for management of hypoxic respiratory failure in setting of metapneumovirus infection, pneumonia, possible congestive heart failure Diagnoses Respiratory failure with hypoxia J96.91 CHF exacerbation I50.9 Interstitial pneumonitis J84.89 Human metapneumovirus (hMPV) pneumonia J12.3 Chronic systolic dysfunction of left ventricle I51.9 CKD (chronic kidney disease) N18.9 Persistent atrial fibrillation I48.19 Atrial fibrillation type: persistent (not longstanding) Transaminitis R74.01 Hypokalemia E87.6 Physical deconditioning R53.81
[2024-02-04] MEDS: ipratropium 0.5 mg/2.5 mL Neb INHALATION ×2 (13:21→20:32)
[2024-02-04] MEDS: levalbuterol 0.63 mg/3 mL Neb INHALATION ×2 (13:21→20:32)
[2024-02-04] MEDS: insulin lispro 100 unit/1 mL SUBCUT ×3 (13:34→22:54)
[2024-02-04] MEDS: budesonide 0.5 mg/2 mL Neb INHALATION (20:31)
--- NOTE | 2024-02-04 22:29 | USCV_ITS ---
Shauna Sena Age: 68 Gender: F : 1955 Exam Date: 02/04/2024 10:49 Ordering Phys: Rayray Peters MD Technologist: Exam Location: [facility] [place] Indication: cp hx of cad BP: 140 / 80 HR: 93 Rhythm: Sinus Technical Quality: Adequate MEASUREMENTS (Male / Female) Normal Values 2D ECHO LV Diastolic Diameter PLAX 4.6 cm 4.2 - 5.9 / 3.9 - 5.3 cm IVS Diastolic Thickness 1.3 cm 0.6 - 1.0 / 0.6 - 0.9 cm IVS Systolic Thickness 1.5 cm LVPW Diastolic Thickness 1.2 cm 0.6 - 1.0 / 0.6 - 0.9 cm LVPW Systolic Thickness 1.6 cm LVOT Diameter 2.0 cm LV Ejection Fraction 2D Teich 34.4 % LV Ejection Fraction MOD 4C 43.2 % LV Ejection Fraction MOD 2C 48.4 % LV Ejection Fraction 2C AL 49.7 % LA Diameter 4.6 cm RA Systolic Volume 4C AL 69.5 ml RA Systolic Volume 4C MOD 64.8 ml Aorta at Sinotubular Diameter 3.4 cm IVC Diameter 1.5 cm M-MODE LA Ao Ratio MM 1.2 AV Cusp Separation MM 2.1 cm DOPPLER AV Peak Velocity 100.0 cm/s LVOT Peak Velocity 72.0 cm/s AV Area Cont Eq vti 2.4 cm squared AV Area Cont Eq pk 2.3 cm squared MV Peak Velocity 79.0 cm/s MV Area PHT 4.7 cm squared Mitral E to A Ratio 1.9 TV Peak Velocity 188.5 cm/s TR Peak Velocity 294.0 cm/s TR Peak Gradient 34.6 mmHg TV Peak E Velocity 129.0 cm/s Right Atrial Pressure 3.0 mmHg Pulmonary Artery Systolic Pressu 37.6 mmHg PV Peak Velocity 114.0 cm/s FINDINGS Left Ventricle Diffuse hypokinesis of the left ventricle with an ejection fraction of 45% Right Ventricle Possibly normal RV size ejection fraction Right Atrium Mildly increased right atrial size. Left Atrium Mildly increased left atrial size. Mitral Valve Mild mitral annular calcification. Aortic Valve No gross abnormalities noted Tricuspid Valve Mild tricuspid valve regurgitation. Pulmonic Valve Trace pulmonary valve regurgitation. Pericardium Normal pericardium without effusion. Aorta Normal ascending aorta dimension. IVC Normal inferior vena cava. CONCLUSIONS Diffuse hypokinesis of the left ventricle with an ejection fraction of 45%. Mild biatrial enlargement. Mild mitral annular calcification. Mild tricuspid valve regurgitation. Estimated pulmonary artery peak systolic pressure 38 mmHg Trace pulmonary valve regurgitation. There is no pericardial effusion. Comparison with the previous study is difficult because of the difference in the technical quality. Dr Sherman Chapman MD [facility] (Electronically Signed) Final Date: 04 February 2024 23:27 S
[2024-02-04] MEDS: insulin glargine 100 units/1 mL 70 UNIT SUBCUT (22:53)
[2024-02-04] MEDS: cefTRIAXone 1,000 mg SDV 1000 MG IVP (22:55)
[2024-02-04] MEDS: atorvastatin 40 mg Tablet 20 MG PO (22:55)
[2024-02-05] VITALS (15 sets, daily range): BP systolic 138–154; BP diastolic 80–94; PULSE 53–84; RESP 16–19; TEMP 36.4–36.6; O2SAT 92–98
[2024-02-05] MEDS: ipratropium 0.5 mg/2.5 mL Neb INHALATION ×4 (02:13→19:39)
[2024-02-05] MEDS: levalbuterol 0.63 mg/3 mL Neb INHALATION ×4 (02:13→19:39)
[2024-02-05] MEDS: methylPREDNISolone sod succ 40 mg/mL INJ IVP ×3 (02:18→17:58)
[2024-02-05 05:29] LABS: Basophils # 0.1 10^3/uL (0.0-0.1); Basophils % 0.5 %; Hematocrit 54.7 % (36-47); Lymphocytes # 1.2 10^3/uL (0.8-4.8); Lymphocytes % 8.7 %; Mean Corpuscular HGB Conc 31.4 g/dL (30-55); Mean Corpuscular Hemoglobin 27.6 pg (27-33); Mean Corpuscular Volume 87.7 fl (85-98); Mean Platelet Volume 10.8 fL (7.4-10.4); Monocytes # 0.3 10^3/uL (0.2-0.9); Monocytes % 2.3 %; Neutrophils % 87.1 %; Nucleated Red Blood Cells % 0 %; Platelet Count 224 10^3/cmm (157-399); Red Blood Count 6.24 10^6/uL (3.85-5.65); Red Cell Distribution Width 16.5 % (12.1-15.1)
[2024-02-05 05:54] LABS: Slide Review Slide Review Perform
[2024-02-05 05:57] LABS: Alanine Aminotransferase 42 U/L (0-33); Alkaline Phosphatase 81 U/L (35-105); Aspartate Amino Transferase 19 U/L (0-32); Blood Urea Nitrogen 76 mg/dL (8-23); Carbon Dioxide 35 mmol/L (22-29); Chloride 89 mmol/L (98-107); Globulin 3.9 g/dL (1.3-4.6); Glomerular Filtration Rate 26.2 mL/min (90-130); Glucose 279 mg/dL (65-115); Osmolality Calculated 321 mOsm/kg (285-295); Sodium 139 mmol/L (136-145); Total Bilirubin 0.5 mg/dL (0.15-1.2); Total Protein 6.9 g/dL (6.6-8.7)
[2024-02-05 05:59] LABS: Anion Gap 18.2 (5-19); Potassium 3.2 mmol/L (3.5-5.1)
[2024-02-05 06:14] LABS: Chol HDL Ratio 3.11 mg/dL (0.0-4.40); Cholesterol 171 mg/dL (0-200); Folate Level 7.1 ng/mL (4.8-37.3); HDL Cholesterol 55 mg/dL (60-100); LDL Cholesterol Calculated 93 mg/dL (50-129); Magnesium 2.2 mg/dL (1.7-2.3); Triglycerides 114 mg/dL (0-150); VLDL Cholestrol Calculation 23 mg/dL (0-30)
[2024-02-05] MEDS: budesonide 0.5 mg/2 mL Neb INHALATION ×2 (08:42→19:39)
[2024-02-05] MEDS: pregabalin 50 mg Capsule PO ×2 (09:06→17:57)
[2024-02-05] MEDS: azithromycin 500 MG in sodium chloride 0.9% 250 ML 250 MG IV (09:06)
[2024-02-05] MEDS: allopurinol 300 mg Tablet PO (09:07)
[2024-02-05] MEDS: metoprolol tartrate 50 mg Tablet 100 MG PO ×2 (09:07→17:57)
[2024-02-05] MEDS: BuSPIRONE 10 mg Tablet PO ×3 (09:07→20:00)
[2024-02-05] MEDS: clopidogrel 75 mg Tablet PO (09:07)
[2024-02-05] MEDS: potassium chloride ER 20 mEq Tablet 40 MEQ PO (09:07)
[2024-02-05] MEDS: apixaban 5 mg Tablet PO ×2 (09:07→17:57)
[2024-02-05] MEDS: levothyroxine 50 mcg Tablet PO (09:07)
[2024-02-05] MEDS: HYDROcodone-acetaminophen 5-325 mg Tablet 1 TAB PO (09:08)
[2024-02-05] MEDS: dilTIAZem ER (24HR) 120 mg Capsule PO (09:08)
[2024-02-05] MEDS: potassium chloride ER 20 mEq Tablet PO ×2 (09:10→17:57)
[2024-02-05] MEDS: insulin lispro 100 unit/1 mL SUBCUT ×4 (09:10→20:50)
[2024-02-05] MEDS: insulin glargine 100 units/1 mL 70 UNIT SUBCUT ×2 (09:10→17:58)
[2024-02-05] MEDS: nystatin powder 15 gm Btl 1 APPLIC TOPICAL ×2 (09:14→17:59)
--- NOTE | 2024-02-05 09:47 | P.PN_ITS ---
Subjective 2 Subjective: No acute events overnight. Patient states she is feeling better. Looks less out of bed today. On 3 L of oxygen supplementation. Denies any nausea, vomiting, headache. Saturating well on 3 L. Vital stable. Vitals/I&O/Wt Last Vital Signs Temp 97.9 F 02/05/24 07:18 Pulse 80 02/05/24 08:53 Resp 18 02/05/24 08:44 BP 151/85 02/05/24 07:18 Pulse Ox 94 02/05/24 08:44 O2 Del Method Nasal Cannula 02/05/24 08:44 O2 Flow Rate 3 02/05/24 08:44 02/04/24 02/05/24 02/05/24 22:59 06:59 14:59 Intake Total 420 / 1640 480 / 2120 Output Total 2200 / 2200 950 / 3150 Balance -1780 / -560 -470 / -1030 Weight last 48 hrs Weight 88.677 kg Weight 132.268 kg Weight 142.882 kg Weight 142.882 kg Physical Exam 2 Const: COMMON NORMALS: patient oriented x3 and alert GENERAL APPEARANCE: c ooperative NUTRITIONAL APPEARANCE: obese ORIENTATION/CONSCIOUSNESS: Yes awake OTHER: Ill-appearing. HENMT: COMMON NORMALS: oropharynx normal Neck/C-Spine: COMMON NORMALS: no JVD Resp: COMMON NORMALS: normal respiratory effort and clear to auscultation bilaterally AUSCULTATION: clear to auscultation bilaterally, crackles, rhonchi, wheezes and diminished lung sounds Cardio: COMMON NORMALS: no JVD, regular rhythm, S1 normal heart sound present, S2 normal heart sound present and No murmurs present (Cardio) RHYTHM: regular rhythm HEART SOUNDS: S1 normal heart sound present and S2 normal heart sound present OTHER: Flutter waves on telemetry. GI: COMMON NORMALS: Normal to inspection, nondistended, normoactive bowel sounds present, Soft to palpation and non-tender PALPATION: Yes Soft to palpation Extremity: COMMON NORMALS: no joint enlargement and no pedal edema GENERAL: Yes edema Neuro: COMMON NORMALS: patient oriented x3 and moves all extremities S ENSORIUM/ORIENTATION: Yes alert Skin: COMMON NORMALS: no rashes or lesions noted GENERAL SKIN EXAM: no rashes or lesions noted Urinary Catheter Management: Esposito: Cath Placed During This Visit: yes Reason for Continuing Indwelling Catheter: Other Urinary Catheter Date of Insertion: 02/04/24 Data 02/05/24 05:09 02/05/24 05:09 Micro: Microbiology 02/04/24 11:06 Legionella Urinary Antigen - Final Unknown Source 02/04/24 11:06 Bacterial Antigens - Final Urine Kidney A&P Assessment and plan (1) Respiratory failure with hypoxia: Acute on chronic hypoxic respiratory failure. Multifactorial. Most likely a combination of COPD exacerbation in setting of metapneumovirus infection, cannot rule out pneumonia given possible consolidation in left lower zone, recent hospitalization, congestive heart failure exacerbation. proBNP slightly elevated as compared to recent discharge. Oxygen supplementation keeping saturation over 90%. Continue with Pulmicort twice daily and ipratropium and Xopenex every 6 hours. Heart rate better after switching from DuoNeb to ipratropium and Xopenex. Continue with Solu-Medrol 40 mg every 8 hours IV for 1 more day. Will plan to wean from tomorrow. Appreciate CT chest without contrast with a possible consolidation/mass in left lower lobe along with right hilar. Most likely pneumonic patch. Will need to have a repeat CT scan in 6 months for further evaluation of left lower lobe mass/consolidation. Check sputum culture. History of MRSA in the wound recently. Negative urine Legionella and bacterial antigen. Continue with azithromycin 500 mg daily to finish a 3-day course to cover atypical. Continue with vancomycin and IV ceftriaxone. Will plan to finish at least 5-day course. Leukocytosis improving. Aggressive pulmonary toilet with incentive spirometry. Out of bed to chair. Echocardiogram shows stable EF of 45%, biatrial enlargement, PASP of 38 mmHg, mild TR. (2) CHF exacerbation: History of systolic and diastolic heart failure. Echocardiogram as above. On high doses of diuretics at home with Bumex 2 mg oral daily, metolazone 10 mg oral daily. Currently patient showing mild worsening of GEORGES. Patient looks slightly dehydrated. Will hold off on diuretics completely for now. Fluid restriction up to 1500 cc. Strict input output charting. Daily weights. Repeat BMP in evening. Replace potassium. (3) Interstitial pneumonitis: (4) Human metapneumovirus (hMPV) pneumonia: (5) Chronic systolic dysfunction of left ventricle: (6) CKD (chronic kidney disease): Baseline creatinine 1.4-1.7. With slight worsening in creatinine and BUN today. Holding off on diuretics. Repeating BMP in evening. If continues to worsen we will plan for gentle IV hydration. Medical reconciliation done for nephrotoxic drugs. Esposito catheterization as above. (7) Atrial fibrillation: Rate better. Continue to hold off on DuoNeb. Continue with Xopenex, ipratropium. For now continue with home dose of metoprolol 100 mg twice daily, Cardizem 120 mg oral daily. Depending on the heart rate over the next 24 hours and the vitals we will plan to uptitrate Cardizem as tolerated. 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 Will avoid. If remains tachycardic will plan for digoxin. Qualifiers: Atrial fibrillation type: persistent (not longstanding) Qualified Code(s): I48.19 - Other persistent atrial fibrillation (8) Transaminitis: Stable to resolving. Continue to monitor daily. Could be in setting of viral infection versus possible congestive hepatomegaly. (9) Hypokalemia: Received potassium replacement. Recheck. (10) Physical deconditioning: Very weak with exertion. Has not been able to manage things at home exacerbated by worsening condition as above. Appreciate PT assessment. Case management consultation. Possible discharge with home health once patient is medically stable. Plan DM2: Sliding scale insulin. Consistent carb diet. Continue LantusAt reduced dose for now at 70 units twice daily. Monitor POC glucose. Amiodarone pulmonary toxicity HTN: : Goal blood pressure less than 140/90 mmHg. Monitor blood pressures, continue Cardizem, metoprolol, diuretics as above. CAD, stenting x 3: Check A1c, lipid panel. Continue Plavix, Eliquis. Metoprolol. Statin. Hypothyroidism: Continue levothyroxine Depression: Cont vortioxetine Full code Cardiac carb consistent diet Fluid restriction. Out of bed to chair. Physical therapy. Famotidine for PUD prophylaxis Attestations 2 Medical Necessity Statement*: Requires further hospitalization for management of GEORGES on CKD, hypoxic respiratory failure in setting of COPD exacerbation, metapneumovirus, systolic and diastolic congestive heart failure Diagnoses Respiratory failure with hypoxia J96.91 CHF exacerbation I50.9 Interstitial pneumonitis J84.89 Human metapneumovirus (hMPV) pneumonia J12.3 Chronic systolic dysfunction of left ventricle I51.9 CKD (chronic kidney disease) N18.9 Persistent atrial fibrillation I48.19 Atrial fibrillation type: persistent (not longstanding) Transaminitis R74.01 Hypokalemia E87.6 Physical deconditioning R53.81
[2024-02-05] MEDS: vancomycin 1,000 MG in sodium chloride 0.9% 250 ML 250 MG IV (10:33)
[2024-02-05] MEDS: ondansetron 2 mg/ML SDV 2 mL 4 MG IVP (10:41)
[2024-02-05] MEDS: metoclopramide 5 mg/mL SDV 2 mL IVP (12:40)
[2024-02-05 17:54] LABS: Anion Gap 11.4 (5-19); Blood Urea Nitrogen 75 mg/dL (8-23); Calcium 8.8 mg/dL (8.5-10.5); Carbon Dioxide 39 mmol/L (22-29); Chloride 90 mmol/L (98-107); Creatinine Clr Calc Pharmacy 41.2452; Glomerular Filtration Rate 34.4 mL/min (90-130); Glucose 333 mg/dL (65-115); Osmolality Calculated 319 mOsm/kg (285-295); Potassium 3.4 mmol/L (3.5-5.1); Sodium 137 mmol/L (136-145)
[2024-02-05] MEDS: atorvastatin 40 mg Tablet 20 MG PO (20:00)
[2024-02-05 20:24] LABS: Glucose Point of Care 412 mg/dL (70-110)
[2024-02-05] MEDS: cefTRIAXone 1,000 mg SDV 1000 MG IVP (22:03)
[2024-02-06] VITALS (13 sets, daily range): BP systolic 137–165; BP diastolic 64–101; PULSE 62–80; RESP 17–20; TEMP 36.4–37; O2SAT 95–98
[2024-02-06] MEDS: methylPREDNISolone sod succ 40 mg/mL INJ IVP ×3 (00:29→21:19)
[2024-02-06] MEDS: metoclopramide 5 mg/mL SDV 2 mL IVP (03:10)
[2024-02-06 06:21] LABS: Glucose Point of Care 248 mg/dL (70-110)
[2024-02-06] MEDS: ipratropium 0.5 mg/2.5 mL Neb INHALATION ×3 (07:23→20:00)
[2024-02-06] MEDS: levalbuterol 0.63 mg/3 mL Neb INHALATION ×3 (07:24→20:00)
[2024-02-06] MEDS: budesonide 0.5 mg/2 mL Neb INHALATION ×2 (07:24→20:00)
[2024-02-06] MEDS: levothyroxine 50 mcg Tablet PO (09:03)
[2024-02-06] MEDS: clopidogrel 75 mg Tablet PO (09:03)
[2024-02-06] MEDS: potassium chloride ER 20 mEq Tablet PO ×2 (09:04→18:12)
[2024-02-06] MEDS: insulin lispro 100 unit/1 mL SUBCUT ×4 (09:04→22:24)
[2024-02-06] MEDS: dilTIAZem ER (24HR) 120 mg Capsule PO (09:04)
[2024-02-06] MEDS: insulin glargine 100 units/1 mL 70 UNIT SUBCUT ×2 (09:04→18:13)
[2024-02-06] MEDS: acetaminophen 325 mg Tablet 650 MG PO (09:04)
[2024-02-06] MEDS: BuSPIRONE 10 mg Tablet PO ×3 (09:04→22:25)
[2024-02-06] MEDS: allopurinol 300 mg Tablet PO (09:04)
[2024-02-06] MEDS: metoprolol tartrate 50 mg Tablet 100 MG PO ×2 (09:04→18:12)
[2024-02-06] MEDS: pregabalin 50 mg Capsule PO ×2 (09:04→18:12)
[2024-02-06] MEDS: azithromycin 500 MG in sodium chloride 0.9% 250 ML 250 MG IV (09:05)
[2024-02-06] MEDS: nystatin powder 15 gm Btl 1 APPLIC TOPICAL ×2 (09:06→18:13)
[2024-02-06] MEDS: hyDRALAzine 25 mg Tablet PO ×3 (09:08→22:25)
[2024-02-06] MEDS: fluticasone nasal spray 16gm Btl 1 SPRAY NASAL ×2 (09:08→18:13)
--- NOTE | 2024-02-06 10:31 | P.PN_ITS ---
Subjective 2 Subjective: Today morning seen sitting up in the recliner. She continues to feel weak. Breathing is stable. Saturating stable more than 95% on 3 L. Blood pressure slightly elevated today. Good urine output. No blood work available for now today. Vitals/I&O/Wt Last Vital Signs Temp 97.5 F L 02/06/24 08:00 Pulse 79 02/06/24 08:00 Resp 19 H 02/06/24 08:00 BP 165/64 02/06/24 08:00 Pulse Ox 97 02/06/24 08:00 O2 Del Method Nasal Cannula 02/06/24 08:00 O2 Flow Rate 3 02/06/24 07:31 02/05/24 02/06/24 02/06/24 22:59 06:59 14:59 Intake Total 1340 / 2800 360 / 3160 360 / 360 Output Total 2150 / 2150 1000 / 3150 Balance -810 / 650 -640 / 10 360 / 360 Weight last 48 hrs Weight 134.581 kg Weight 88.677 kg Physical Exam 2 Const: COMMON NORMALS: patient oriented x3 and alert GENERAL APPEARANCE: c ooperative NUTRITIONAL APPEARANCE: obese ORIENTATION/CONSCIOUSNESS: Yes awake OTHER: Tired appearing HENMT: COMMON NORMALS: oropharynx normal Neck/C-Spine: COMMON NORMALS: no JVD Resp: COMMON NORMALS: normal respiratory effort and clear to auscultation bilaterally AUSCULTATION: clear to auscultation bilaterally, crackles, rhonchi, wheezes and diminished lung sounds Cardio: COMMON NORMALS: no JVD, regular rhythm, S1 normal heart sound present, S2 normal heart sound present and No murmurs present (Cardio) RHYTHM: regular rhythm HEART SOUNDS: S1 normal heart sound present and S2 normal heart sound present OTHER: Flutter waves on telemetry. GI: COMMON NORMALS: Normal to inspection, nondistended, normoactive bowel sounds present, Soft to palpation and non-tender PALPATION: Yes Soft to palpation Extremity: COMMON NORMALS: no joint enlargement and no pedal edema GENERAL: Yes edema Neuro: COMMON NORMALS: patient oriented x3 and moves all extremities S ENSORIUM/ORIENTATION: Yes alert Skin: COMMON NORMALS: no rashes or lesions noted GENERAL SKIN EXAM: no rashes or lesions noted Urinary Catheter Management: Esposito: Cath Placed During This Visit: yes Reason for Continuing Indwelling Catheter: Other Urinary Catheter Date of Insertion: 02/04/24 Data 02/05/24 05:09 02/05/24 17:12 Micro: Microbiology 02/04/24 11:06 Urine Culture - Preliminary Urine,Clean Catch 02/04/24 13:37 Gram Stain - Final Sputum - Expectorated Sputum Sputum Culture - Preliminary Gram Negative Rods A&P Assessment and plan (1) Respiratory failure with hypoxia: Acute on chronic hypoxic respiratory failure. Multifactorial. Most likely a combination of COPD exacerbation in setting of metapneumovirus infection, cannot rule out pneumonia given possible consolidation in left lower zone, recent hospitalization, congestive heart failure exacerbation. proBNP slightly elevated as compared to recent discharge. Oxygen supplementation keeping saturation over 90%. Continue with Pulmicort twice daily and ipratropium and Xopenex every 6 hours. Heart rate better after switching from DuoNeb to ipratropium and Xopenex. Continue with Solu-Medrol 40 mg every 8 hours IV for 1 more day. Will plan to wean from tomorrow. Appreciate CT chest without contrast with a possible consolidation/mass in left lower lobe along with right hilar. Most likely pneumonic patch. Will need to have a repeat CT scan in 6 months for further evaluation of left lower lobe mass/consolidation. Check sputum culture. History of MRSA in the wound recently. Negative urine Legionella and bacterial antigen. Continue with azithromycin 500 mg daily to finish a 3-day course to cover atypical. Continue with vancomycin and IV ceftriaxone. Will plan to finish at least 5-day course. Leukocytosis improving. Aggressive pulmonary toilet with incentive spirometry. Out of bed to chair. Echocardiogram shows stable EF of 45%, biatrial enlargement, PASP of 38 mmHg, mild TR. (2) CHF exacerbation: History of systolic and diastolic heart failure. Echocardiogram as above. On high doses of diuretics at home with Bumex 2 mg oral daily, metolazone 10 mg oral daily. Currently patient showing mild worsening of GEORGES. Patient looks slightly dehydrated. Will hold off on diuretics completely for now. Fluid restriction up to 1500 cc. Strict input output charting. Daily weights. Repeat BMP in evening. Replace potassium. (3) Interstitial pneumonitis: (4) Human metapneumovirus (hMPV) pneumonia: (5) Chronic systolic dysfunction of left ventricle: (6) CKD (chronic kidney disease): Baseline creatinine 1.4-1.7. With slight worsening in creatinine and BUN today. Holding off on diuretics. Repeating BMP in evening. If continues to worsen we will plan for gentle IV hydration. Medical reconciliation done for nephrotoxic drugs. Esposito catheterization as above. (7) Atrial fibrillation: Rate better. Continue to hold off on DuoNeb. Continue with Xopenex, ipratropium. For now continue with home dose of metoprolol 100 mg twice daily, Cardizem 120 mg oral daily. Depending on the heart rate over the next 24 hours and the vitals we will plan to uptitrate Cardizem as tolerated. 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 Will avoid. If remains tachycardic will plan for digoxin. Qualifiers: Atrial fibrillation type: persistent (not longstanding) Qualified Code(s): I48.19 - Other persistent atrial fibrillation (8) Transaminitis: Stable to resolving. Continue to monitor daily. Could be in setting of viral infection versus possible congestive hepatomegaly. (9) Hypokalemia: Received potassium replacement. Recheck. (10) Physical deconditioning: Very weak with exertion. Has not been able to manage things at home exacerbated by worsening condition as above. Appreciate PT assessment. Case management consultation. Possible discharge with home health once patient is medically stable. Plan DM2: Sliding scale insulin. Consistent carb diet. Continue LantusAt reduced dose for now at 70 units twice daily. Monitor POC glucose. Amiodarone pulmonary toxicity HTN: : Goal blood pressure less than 140/90 mmHg. Monitor blood pressures, continue Cardizem, metoprolol, diuretics as above. CAD, stenting x 3: Check A1c, lipid panel. Continue Plavix, Eliquis. Metoprolol. Statin. Hypothyroidism: Continue levothyroxine Depression: Cont vortioxetine Full code Cardiac carb consistent diet Fluid restriction. Out of bed to chair. Physical therapy. Famotidine for PUD prophylaxis Plan for the day: CBC and CMP awaited for now today. Continue to hold off on diuretics. Wean Solu-Medrol to 40 mg every 12 hourly. Continue with nebulization treatment. Blood pressure elevated. Add hydralazine 25 mg 3 times daily. Goal blood pressure less than 140/90 mmHg. Discharge plan: Plan to discharge home with home health within next 24 to 48 hours depending on clinical picture. Discussed with the patient that given her physical deconditioning it would be appropriate for her to go to SNF for a short while but she states she has home health and daughter who lives nearby who will be able to help her and wants to go home for now. Attestations 2 Medical Necessity Statement*: Requires further hospitalization for management of acute hypoxic respiratory failure in setting of metapneumovirus, diastolic heart failure, GEORGES on CKD while antihypertensives were adjusted and IV steroids are tapered Diagnoses Respiratory failure with hypoxia J96.91 CHF exacerbation I50.9 Interstitial pneumonitis J84.89 Human metapneumovirus (hMPV) pneumonia J12.3 Chronic systolic dysfunction of left ventricle I51.9 CKD (chronic kidney disease) N18.9 Persistent atrial fibrillation I48.19 Atrial fibrillation type: persistent (not longstanding) Transaminitis R74.01 Hypokalemia E87.6 Physical deconditioning R53.81
[2024-02-06] MEDS: vancomycin 1,000 MG in sodium chloride 0.9% 250 ML 250 MG IV (10:55)
--- NOTE | 2024-02-06 13:51 | PHA.VACGOAL ---
Vancomycin Goal - Goal Vancomycin Goal:: 10-15 mg/L Vancomycin Indication:: Other (SUSPECTED INFECTION) - Therapy Current therapy:: Azithromycin (500MG DAILY), Other Antibiotic (ROCEPHIN 1000MG Q24H) Day of therpy:: Day [3]of [] . Actual body weight (kg): 134.581 kg [place] body weight: 63.9 KG Dosing weight (kg): 91.2 KG - Data Labs: WBC 13.20 10^3/uL (3.29-11.43) H 02/05/24 05:09 RBC 6.24 10^6/uL (3.85-5.65) H 02/05/24 05:09 Hgb 17.20 g/dL (11.27-16.99) H 02/05/24 05:09 Hct 54.7 % (36-47) H 02/05/24 05:09 MCV 87.7 fl (85-98) 02/05/24 05:09 MCH 27.6 pg (27-33) 02/05/24 05:09 MCHC 31.4 g/dL (30-55) 02/05/24 05:09 RDW 16.5 % (12.1-15.1) H 02/05/24 05:09 Sodium 137 mmol/L (136-145) 02/05/24 17:12 Potassium 3.4 mmol/L (3.5-5.1) L 02/05/24 17:12 Chloride 90 mmol/L (98-107) L 02/05/24 17:12 Carbon Dioxide 39 mmol/L (22-29) H 02/05/24 17:12 Anion Gap 11.4 (5-19) 02/05/24 17:12 BUN 75 mg/dL (8-23) H 02/05/24 17:12 Creatinine 1.5 mg/dL (0.5-0.9) H 02/05/24 17:12 GFR Calculation 34.4 mL/min (90-130) L 02/05/24 17:12 Microbiology 02/04/24 13:37 Sputum - Expectorated Sputum Gram Stain - Final 02/04/24 13:37 Sputum - Expectorated Sputum Sputum Culture - Final Klebsiella pneumoniae Treatment plan:: continue Regimen:: 1 GM Q24H Follow up:: TROUGH SCHEDULED TO BE DRAWN BEFORE 4TH DOSE ON 02/07/24 @0900 SCR TO BE DRAWN DAILY WITH AM LABS
[2024-02-06 14:33] LABS: Basophils # 0.1 10^3/uL (0.0-0.1); Basophils % 0.4 %; Hematocrit 51.4 % (36-47); Lymphocytes # 0.6 10^3/uL (0.8-4.8); Lymphocytes % 4.9 %; Mean Corpuscular HGB Conc 32.1 g/dL (30-55); Mean Corpuscular Hemoglobin 27.7 pg (27-33); Mean Corpuscular Volume 86.2 fl (85-98); Mean Platelet Volume 11.5 fL (7.4-10.4); Monocytes # 0.6 10^3/uL (0.2-0.9); Monocytes % 4.6 %; Neutrophils # 11.52 10^3/uL (1.8-7.7); Neutrophils % 88.8 %; Nucleated Red Blood Cells % 0 %; Platelet Count 245 10^3/cmm (157-399); Red Blood Count 5.96 10^6/uL (3.85-5.65); Red Cell Distribution Width 15.4 % (12.1-15.1); White Blood Count 12.98 10^3/uL (3.29-11.43)
[2024-02-06 14:52] LABS: Alanine Aminotransferase 52 U/L (0-33); Albumin Level 2.8 g/dL (3.5-5.2); Alkaline Phosphatase 76 U/L (35-105); Blood Urea Nitrogen 71 mg/dL (8-23); Calcium 8.6 mg/dL (8.5-10.5); Carbon Dioxide 31 mmol/L (22-29); Chloride 90 mmol/L (98-107); Creatinine Clr Calc Pharmacy 55.1846; Globulin 3.5 g/dL (1.3-4.6); Glomerular Filtration Rate 37.3 mL/min (90-130); Glucose 419 mg/dL (65-115); Osmolality Calculated 315 mOsm/kg (285-295); Sodium 133 mmol/L (136-145); Total Bilirubin 0.4 mg/dL (0.15-1.2); Total Protein 6.3 g/dL (6.6-8.7)
[2024-02-06 14:54] LABS: Anion Gap 15.7 (5-19); Aspartate Amino Transferase 32 U/L (0-32); Potassium 3.7 mmol/L (3.5-5.1)
[2024-02-06 15:06] LABS: Magnesium 2.2 mg/dL (1.7-2.3)
--- NOTE | 2024-02-06 15:27 | PC.SOCIAL ---
IMM Updated IMM initialed and dated. Copy given to patient and copy placed in chart.
[2024-02-06 16:26] LABS: Glucose Point of Care 378 mg/dL (70-110)
[2024-02-06 16:52] LABS: Glucose Point of Care 323 mg/dL (70-110)
[2024-02-06 20:12] LABS: Potassium, Radom Urine 33 mmol/L; Urine Creatinine 48 mg/dL (28-217); Urine Random Sodium 20 mmol/L
[2024-02-06 20:13] LABS: Urine Random Chloride 16 mmol/L
[2024-02-06 21:55] LABS: Eosinophil Urine No Eosinophils Seen
[2024-02-06 21:56] LABS: Urine Eosinophil Count 0 (0-0)
[2024-02-06] MEDS: atorvastatin 40 mg Tablet 20 MG PO (22:25)
[2024-02-06] MEDS: cefTRIAXone 1,000 mg SDV 1000 MG IVP (22:26)
[2024-02-06] MEDS: guaiFENesin-dextromethorphan UDC 10 mL 5 ML PO (23:46)
[2024-02-07] VITALS (13 sets, daily range): BP systolic 149–178; BP diastolic 78–96; PULSE 61–86; RESP 16–20; TEMP 36.4–37; O2SAT 93–98
[2024-02-07] MEDS: ipratropium 0.5 mg/2.5 mL Neb INHALATION ×4 (01:01→20:26)
[2024-02-07] MEDS: levalbuterol 0.63 mg/3 mL Neb INHALATION ×4 (01:01→20:26)
[2024-02-07] MEDS: guaiFENesin-dextromethorphan UDC 10 mL 5 ML PO ×3 (04:08→20:39)
--- NOTE | 2024-02-07 05:25 | PC.NURSE ---
FLUID RESTRICTION pt had been requesting multiple refills of her cup for water from aide. this information was brought to this senior medical writer by the aide, and despite stated fluid restriction sign at entrance of door to room and current active order for this restriction, the aide stated the patient became mad when the topic of the restriction was broached with her and demanded her cup refilled regardless. this senior medical writer approached the patient and explained the active order in her chart and educated her on the rationale behind it in regard to her medical care in the hospital. the patient stated that the day doctor had told her to drink a lot more to help my kidneys . the patient also expressed her frustration and anger at the lack of consistency with her care with treatment communication and that she wanted her water cup filled when she wanted it. this senior medical writer explained that while there was an order, the patient has the right to refuse treatments and interventions if her decision remained the same after education. the patient stated that she did not want the restriction followed. this nurse acknowledged her right of autonomy, informing the aide and charge that the pt would not be following the fluid restriction at this time. this senior medical writer also told the pt that the confusion over the fluid order would be passed along to dayshift to be clarified with the doctor and ensure better consistency and understanding for the patient and staff. patient thanked this senior medical writer and stated that she would be bringing it up with day doc as well on her part.
[2024-02-07 05:42] LABS: Magnesium 2.2 mg/dL (1.7-2.3)
[2024-02-07 06:19] LABS: Glucose Point of Care 212 mg/dL (70-110)
[2024-02-07] MEDS: budesonide 0.5 mg/2 mL Neb INHALATION ×2 (08:00→20:26)
[2024-02-07] MEDS: levothyroxine 50 mcg Tablet PO (09:14)
[2024-02-07] MEDS: BuSPIRONE 10 mg Tablet PO ×3 (09:14→20:39)
[2024-02-07] MEDS: potassium chloride ER 20 mEq Tablet PO ×2 (09:14→17:40)
[2024-02-07] MEDS: pregabalin 50 mg Capsule PO ×2 (09:14→17:40)
[2024-02-07] MEDS: clopidogrel 75 mg Tablet PO (09:14)
[2024-02-07] MEDS: metoprolol tartrate 50 mg Tablet 100 MG PO ×2 (09:14→17:40)
[2024-02-07] MEDS: allopurinol 300 mg Tablet PO (09:14)
[2024-02-07] MEDS: hyDRALAzine 25 mg Tablet PO (09:14)
[2024-02-07] MEDS: dilTIAZem ER (24HR) 120 mg Capsule PO (09:14)
[2024-02-07] MEDS: insulin glargine 100 units/1 mL 70 UNIT SUBCUT ×2 (09:16→17:40)
[2024-02-07] MEDS: insulin lispro 100 unit/1 mL SUBCUT ×4 (09:16→20:40)
[2024-02-07] MEDS: methylPREDNISolone sod succ 40 mg/mL INJ IVP (09:16)
[2024-02-07] MEDS: nystatin powder 15 gm Btl 1 APPLIC TOPICAL ×2 (09:18→17:41)
[2024-02-07] MEDS: fluticasone nasal spray 16gm Btl 1 SPRAY NASAL ×2 (09:19→17:41)
[2024-02-07 09:21] LABS: Vancomycin Trough 9.5 ug/mL (10-15)
[2024-02-07] MEDS: cyanocobalamin 1,000 mcg Tablet 1000 MCG PO (09:24)
--- NOTE | 2024-02-07 10:38 | P.PN_ITS ---
Subjective 2 Subjective: Today morning she states she is feeling a lot better. More energetic. Denies any nausea, vomiting, headache. Saturating well on 3 L. Blood pressure slightly elevated. Good urine output. Vitals/I&O/Wt Last Vital Signs Temp 97.6 F 02/07/24 08:00 Pulse 85 02/07/24 08:00 Resp 18 02/07/24 08:00 BP 178/86 02/07/24 08:00 Pulse Ox 93 02/07/24 08:00 O2 Del Method Nasal Cannula 02/07/24 08:00 O2 Flow Rate 3 02/07/24 08:00 02/06/24 02/07/24 02/07/24 22:59 06:59 14:59 Intake Total 2000 / 3340 480 / 3820 480 / 480 Output Total 1250 / 2350 1000 / 3350 750 / 750 Balance 750 / 990 -520 / 470 -270 / -270 Weight last 48 hrs Weight 134.082 kg Weight 134.581 kg Physical Exam 2 Const: COMMON NORMALS: patient oriented x3 and alert GENERAL APPEARANCE: c ooperative NUTRITIONAL APPEARANCE: obese ORIENTATION/CONSCIOUSNESS: Yes awake OTHER: Tired appearing HENMT: COMMON NORMALS: oropharynx normal Neck/C-Spine: COMMON NORMALS: no JVD Resp: COMMON NORMALS: normal respiratory effort and clear to auscultation bilaterally AUSCULTATION: clear to auscultation bilaterally, crackles, rhonchi, wheezes and diminished lung sounds Cardio: COMMON NORMALS: no JVD, regular rhythm, S1 normal heart sound present, S2 normal heart sound present and No murmurs present (Cardio) RHYTHM: regular rhythm HEART SOUNDS: S1 normal heart sound present and S2 normal heart sound present OTHER: Flutter waves on telemetry. GI: COMMON NORMALS: Normal to inspection, nondistended, normoactive bowel sounds present, Soft to palpation and non-tender PALPATION: Yes Soft to palpation Extremity: COMMON NORMALS: no joint enlargement and no pedal edema GENERAL: Yes edema Neuro: COMMON NORMALS: patient oriented x3 and moves all extremities S ENSORIUM/ORIENTATION: Yes alert Skin: COMMON NORMALS: no rashes or lesions noted GENERAL SKIN EXAM: no rashes or lesions noted Urinary Catheter Management: Esposito: Cath Placed During This Visit: yes Reason for Continuing Indwelling Catheter: Other Urinary Catheter Date of Insertion: 02/04/24 Data 02/06/24 14:24 02/06/24 14:24 Micro: Microbiology 02/04/24 11:06 Urine Culture - Final Urine,Clean Catch 02/04/24 13:37 Gram Stain - Final Sputum - Expectorated Sputum Sputum Culture - Final Klebsiella pneumoniae A&P Assessment and plan (1) Respiratory failure with hypoxia: Acute on chronic hypoxic respiratory failure. Multifactorial. Most likely a combination of COPD exacerbation in setting of metapneumovirus infection, cannot rule out pneumonia given possible consolidation in left lower zone, recent hospitalization, congestive heart failure exacerbation. proBNP slightly elevated as compared to recent discharge. Oxygen supplementation keeping saturation over 90%. Continue with Pulmicort twice daily and ipratropium and Xopenex every 6 hours. Heart rate better after switching from DuoNeb to ipratropium and Xopenex. Continue with Solu-Medrol 40 mg every 8 hours IV for 1 more day. Will plan to wean from tomorrow. Appreciate CT chest without contrast with a possible consolidation/mass in left lower lobe along with right hilar. Most likely pneumonic patch. Will need to have a repeat CT scan in 6 months for further evaluation of left lower lobe mass/consolidation. Check sputum culture. History of MRSA in the wound recently. Negative urine Legionella and bacterial antigen. Continue with azithromycin 500 mg daily to finish a 3-day course to cover atypical. Continue with vancomycin and IV ceftriaxone. Will plan to finish at least 5-day course. Leukocytosis improving. Aggressive pulmonary toilet with incentive spirometry. Out of bed to chair. Echocardiogram shows stable EF of 45%, biatrial enlargement, PASP of 38 mmHg, mild TR. (2) CHF exacerbation: History of systolic and diastolic heart failure. Echocardiogram as above. On high doses of diuretics at home with Bumex 2 mg oral daily, metolazone 10 mg oral daily. Currently patient showing mild worsening of GEORGES. Patient looks slightly dehydrated. Will hold off on diuretics completely for now. Fluid restriction up to 1500 cc. Strict input output charting. Daily weights. Repeat BMP in evening. Replace potassium. (3) Interstitial pneumonitis: (4) Human metapneumovirus (hMPV) pneumonia: (5) Chronic systolic dysfunction of left ventricle: (6) CKD (chronic kidney disease): Baseline creatinine 1.4-1.7. With slight worsening in creatinine and BUN today. Holding off on diuretics. Repeating BMP in evening. If continues to worsen we will plan for gentle IV hydration. Medical reconciliation done for nephrotoxic drugs. Esposito catheterization as above. (7) Atrial fibrillation: Rate better. Continue to hold off on DuoNeb. Continue with Xopenex, ipratropium. For now continue with home dose of metoprolol 100 mg twice daily, Cardizem 120 mg oral daily. Depending on the heart rate over the next 24 hours and the vitals we will plan to uptitrate Cardizem as tolerated. 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 Will avoid. If remains tachycardic will plan for digoxin. Qualifiers: Atrial fibrillation type: persistent (not longstanding) Qualified Code(s): I48.19 - Other persistent atrial fibrillation (8) Transaminitis: Stable to resolving. Continue to monitor daily. Could be in setting of viral infection versus possible congestive hepatomegaly. (9) Hypokalemia: Received potassium replacement. Recheck. (10) Physical deconditioning: Very weak with exertion. Has not been able to manage things at home exacerbated by worsening condition as above. Appreciate PT assessment. Case management consultation. Possible discharge with home health once patient is medically stable. Plan DM2: Sliding scale insulin. Consistent carb diet. Continue LantusAt reduced dose for now at 70 units twice daily. Monitor POC glucose. Amiodarone pulmonary toxicity HTN: : Goal blood pressure less than 140/90 mmHg. Monitor blood pressures, continue Cardizem, metoprolol, diuretics as above. CAD, stenting x 3: Check A1c, lipid panel. Continue Plavix, Eliquis. Metoprolol. Statin. Hypothyroidism: Continue levothyroxine Depression: Cont vortioxetine Full code Cardiac carb consistent diet Fluid restriction. Out of bed to chair. Physical therapy. Famotidine for PUD prophylaxis Plan for the day: Sputum culture growing Klebsiella. Sensitivities appreciated. For now continue with IV ceftriaxone to which Klebsiella is sensitive. Wean off Solu-Medrol to 40 mg IV daily. Blood pressure elevated. Goal blood pressure less than 140/90 mmHg. Appreciate CBC, BMP. Creatinine improving. Hold off diuretic for 1 more day. Will plan to discharge on lower diuretics than before. Mom Increase hydralazine to 50 mg 3 times a day. Uptitrate as for goal blood pressures. Discharge plan: Plan to discharge home with home health within next 24 to 48 hours depending on clinical picture. Discussed with the patient that given her physical deconditioning it would be appropriate for her to go to SNF for a short while but she states she has home health and daughter who lives nearby who will be able to help her and wants to go home for now. Attestations 2 Medical Necessity Statement*: Requires further hospitalization for management of hypoxic respiratory failure in setting of pneumonia, COPD exacerbation in setting of metapneumovirus, diastolic heart failure, improving GEORGES. Discharge planning is sought. Diagnoses Respiratory failure with hypoxia J96.91 CHF exacerbation I50.9 Interstitial pneumonitis J84.89 Human metapneumovirus (hMPV) pneumonia J12.3 Chronic systolic dysfunction of left ventricle I51.9 CKD (chronic kidney disease) N18.9 Persistent atrial fibrillation I48.19 Atrial fibrillation type: persistent (not longstanding) Transaminitis R74.01 Hypokalemia E87.6 Physical deconditioning R53.81
[2024-02-07 11:50] LABS: Glucose Point of Care 287 mg/dL (70-110)
[2024-02-07] MEDS: hyDRALAzine 25 mg Tablet 50 MG PO ×2 (15:22→20:40)
[2024-02-07 17:24] LABS: Glucose Point of Care 305 mg/dL (70-110)
[2024-02-07] MEDS: apixaban 5 mg Tablet PO (17:41)
[2024-02-07 20:26] LABS: Glucose Point of Care 370 mg/dL (70-110)
[2024-02-07] MEDS: atorvastatin 40 mg Tablet 20 MG PO (20:40)
[2024-02-07] MEDS: cefTRIAXone 1,000 mg SDV 1000 MG IVP (23:43)
[2024-02-08] VITALS (12 sets, daily range): BP systolic 155–161; BP diastolic 78–91; PULSE 62–82; RESP 17–18; TEMP 36.4–36.6; O2SAT 91–98
[2024-02-08] MEDS: guaiFENesin-dextromethorphan UDC 10 mL 5 ML PO ×2 (00:50→09:48)
[2024-02-08] MEDS: levalbuterol 0.63 mg/3 mL Neb INHALATION ×3 (02:41→14:34)
[2024-02-08] MEDS: ipratropium 0.5 mg/2.5 mL Neb INHALATION ×3 (02:41→14:34)
[2024-02-08 03:55] LABS: Basophils # 0.1 10^3/uL (0.0-0.1); Basophils % 0.6 %; Lymphocytes # 0.9 10^3/uL (0.8-4.8); Lymphocytes % 8.1 %; Mean Corpuscular HGB Conc 31.3 g/dL (30-55); Mean Corpuscular Hemoglobin 27.5 pg (27-33); Mean Corpuscular Volume 87.7 fl (85-98); Mean Platelet Volume 11.5 fL (7.4-10.4); Monocytes # 1.1 10^3/uL (0.2-0.9); Monocytes % 9.9 %; Neutrophils # 8.47 10^3/uL (1.8-7.7); Neutrophils % 76.9 %; Nucleated Red Blood Cells % 0 %; Platelet Count 270 10^3/cmm (157-399); Red Blood Count 6.04 10^6/uL (3.85-5.65); Red Cell Distribution Width 15.1 % (12.1-15.1); White Blood Count 11.02 10^3/uL (3.29-11.43)
[2024-02-08 04:18] LABS: Alanine Aminotransferase 51 U/L (0-33); Albumin Level 2.9 g/dL (3.5-5.2); Alkaline Phosphatase 68 U/L (35-105); Aspartate Amino Transferase 20 U/L (0-32); Blood Urea Nitrogen 62 mg/dL (8-23); Calcium 8.7 mg/dL (8.5-10.5); Carbon Dioxide 31 mmol/L (22-29); Chloride 99 mmol/L (98-107); Creatinine Clr Calc Pharmacy 70.0828; Globulin 2.9 g/dL (1.3-4.6); Glomerular Filtration Rate 49.2 mL/min (90-130); Glucose 232 mg/dL (65-115); Osmolality Calculated 315 mOsm/kg (285-295); Sodium 140 mmol/L (136-145); Total Bilirubin 0.5 mg/dL (0.15-1.2); Total Protein 5.8 g/dL (6.6-8.7)
[2024-02-08] MEDS: budesonide 0.5 mg/2 mL Neb INHALATION (08:20)
[2024-02-08] MEDS: clopidogrel 75 mg Tablet PO (08:35)
[2024-02-08] MEDS: allopurinol 300 mg Tablet PO (08:35)
[2024-02-08] MEDS: hyDRALAzine 25 mg Tablet 50 MG PO ×2 (08:35→14:09)
[2024-02-08] MEDS: levothyroxine 50 mcg Tablet PO (08:35)
[2024-02-08] MEDS: potassium chloride ER 20 mEq Tablet PO (08:35)
[2024-02-08] MEDS: pregabalin 50 mg Capsule PO (08:35)
[2024-02-08] MEDS: apixaban 5 mg Tablet PO (08:35)
[2024-02-08] MEDS: BuSPIRONE 10 mg Tablet PO ×2 (08:35→14:09)
[2024-02-08] MEDS: dilTIAZem ER (24HR) 120 mg Capsule PO (08:35)
[2024-02-08] MEDS: insulin lispro 100 unit/1 mL SUBCUT ×2 (08:36→11:34)
[2024-02-08] MEDS: metoprolol tartrate 50 mg Tablet 100 MG PO (08:36)
[2024-02-08] MEDS: fluticasone nasal spray 16gm Btl 1 SPRAY NASAL (08:36)
[2024-02-08] MEDS: cyanocobalamin 1,000 mcg Tablet 1000 MCG PO (08:36)
[2024-02-08] MEDS: methylPREDNISolone sod succ 40 mg/mL INJ IVP (08:36)
[2024-02-08] MEDS: nystatin powder 15 gm Btl 1 APPLIC TOPICAL (08:37)
[2024-02-08] MEDS: insulin glargine 100 units/1 mL 70 UNIT SUBCUT (09:46)
[2024-02-08 11:14] LABS: Glucose Point of Care 192 mg/dL (70-110)
[2024-02-08 11:38] LABS: Glucose Point of Care 333 mg/dL (70-110)
--- NOTE | 2024-02-08 12:26 | P.PN_ITS ---
Subjective 2 Subjective: Today morning she states she is feeling a lot better. More energetic. Denies any nausea, vomiting, headache. Saturating well on 3 L. Blood pressure slightly elevated. Good urine output. Vitals/I&O/Wt Last Vital Signs Temp 97.7 F 02/08/24 08:00 Pulse 70 02/08/24 08:29 Resp 18 02/08/24 08:20 BP 161/91 02/08/24 08:00 Pulse Ox 97 02/08/24 08:20 O2 Del Method Nasal Cannula 02/08/24 08:20 O2 Flow Rate 3 02/08/24 08:20 02/07/24 02/08/24 02/08/24 22:59 06:59 14:59 Intake Total 720 / 1440 680 / 2120 360 / 360 Output Total 1200 / 1950 500 / 2450 Balance -480 / -510 180 / -330 360 / 360 Weight last 48 hrs Weight 134.218 kg Weight 134.082 kg Physical Exam 2 Const: COMMON NORMALS: patient oriented x3 and alert GENERAL APPEARANCE: c ooperative NUTRITIONAL APPEARANCE: obese ORIENTATION/CONSCIOUSNESS: Yes awake OTHER: Tired appearing HENMT: COMMON NORMALS: oropharynx normal Neck/C-Spine: COMMON NORMALS: no JVD Resp: COMMON NORMALS: normal respiratory effort and clear to auscultation bilaterally AUSCULTATION: clear to auscultation bilaterally, crackles, rhonchi, wheezes and diminished lung sounds Cardio: COMMON NORMALS: no JVD, regular rhythm, S1 normal heart sound present, S2 normal heart sound present and No murmurs present (Cardio) RHYTHM: regular rhythm HEART SOUNDS: S1 normal heart sound present and S2 normal heart sound present OTHER: Flutter waves on telemetry. GI: COMMON NORMALS: Normal to inspection, nondistended, normoactive bowel sounds present, Soft to palpation and non-tender PALPATION: Yes Soft to palpation Extremity: COMMON NORMALS: no joint enlargement and no pedal edema GENERAL: Yes edema Neuro: COMMON NORMALS: patient oriented x3 and moves all extremities S ENSORIUM/ORIENTATION: Yes alert Skin: COMMON NORMALS: no rashes or lesions noted GENERAL SKIN EXAM: no rashes or lesions noted Urinary Catheter Management: Esposito: Cath Placed During This Visit: yes, but has since been removed by the nurse Reason for Continuing Indwelling Catheter: Decision to DC Catheter Urinary Catheter Date of Insertion: 02/04/24 Date Urinary Catheter Removed: 02/07/24 Time Urinary Catheter Discontinued: 19:30 Data 02/08/24 03:31 02/08/24 03:31 Micro: Microbiology 02/04/24 11:06 Urine Culture - Final Urine,Clean Catch A&P Assessment and plan (1) Respiratory failure with hypoxia: Acute on chronic hypoxic respiratory failure. Multifactorial. Most likely a combination of COPD exacerbation in setting of metapneumovirus infection, cannot rule out pneumonia given possible consolidation in left lower zone, recent hospitalization, congestive heart failure exacerbation. proBNP slightly elevated as compared to recent discharge. Oxygen supplementation keeping saturation over 90%. Continue with Pulmicort twice daily and ipratropium and Xopenex every 6 hours. Heart rate better after switching from DuoNeb to ipratropium and Xopenex. Continue with Solu-Medrol 40 mg every 8 hours IV for 1 more day. Will plan to wean from tomorrow. Appreciate CT chest without contrast with a possible consolidation/mass in left lower lobe along with right hilar. Most likely pneumonic patch. Will need to have a repeat CT scan in 6 months for further evaluation of left lower lobe mass/consolidation. Check sputum culture. History of MRSA in the wound recently. Negative urine Legionella and bacterial antigen. Continue with azithromycin 500 mg daily to finish a 3-day course to cover atypical. Continue with vancomycin and IV ceftriaxone. Will plan to finish at least 5-day course. Leukocytosis improving. Aggressive pulmonary toilet with incentive spirometry. Out of bed to chair. Echocardiogram shows stable EF of 45%, biatrial enlargement, PASP of 38 mmHg, mild TR. (2) CHF exacerbation: History of systolic and diastolic heart failure. Echocardiogram as above. On high doses of diuretics at home with Bumex 2 mg oral daily, metolazone 10 mg oral daily. Currently patient showing mild worsening of GE[place]ES. Patient looks slightly dehydrated. Will hold off on diuretics completely for now. Fluid restriction up to 1500 cc. Strict input output charting. Daily weights. Repeat BMP in evening. Replace potassium. (3) Interstitial pneumonitis: (4) Human metapneumovirus (hMPV) pneumonia: (5) Chronic systolic dysfunction of left ventricle: (6) CKD (chronic kidney disease): Baseline creatinine 1.4-1.7. With slight worsening in creatinine and BUN today. Holding off on diuretics. Repeating BMP in evening. If continues to worsen we will plan for gentle IV hydration. Medical reconciliation done for nephrotoxic drugs. Esposito catheterization as above. (7) Atrial fibrillation: Rate better. Continue to hold off on DuoNeb. Continue with Xopenex, ipratropium. For now continue with home dose of metoprolol 100 mg twice daily, Cardizem 120 mg oral daily. Depending on the heart rate over the next 24 hours and the vitals we will plan to uptitrate Cardizem as tolerated. 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 Will avoid. If remains tachycardic will plan for digoxin. Qualifiers: Atrial fibrillation type: persistent (not longstanding) Qualified Code(s): I48.19 - Other persistent atrial fibrillation (8) Transaminitis: Stable to resolving. Continue to monitor daily. Could be in setting of viral infection versus possible congestive hepatomegaly. (9) Hypokalemia: Received potassium replacement. Recheck. (10) Physical deconditioning: Very weak with exertion. Has not been able to manage things at home exacerbated by worsening condition as above. Appreciate PT assessment. Case management consultation. Possible discharge with home health once patient is medically stable. Plan DM2: Sliding scale insulin. Consistent carb diet. Continue LantusAt reduced dose for now at 70 units twice daily. Monitor POC glucose. Amiodarone pulmonary toxicity HTN: : Goal blood pressure less than 140/90 mmHg. Monitor blood pressures, continue Cardizem, metoprolol, diuretics as above. CAD, stenting x 3: Check A1c, lipid panel. Continue Plavix, Eliquis. Metoprolol. Statin. Hypothyroidism: Continue levothyroxine Depression: Cont vortioxetine Full code Cardiac carb consistent diet Fluid restriction. Out of bed to chair. Physical therapy. Famotidine for PUD prophylaxis Plan for the day: Sputum culture growing Klebsiella. Sensitivities appreciated. For now continue with IV ceftriaxone to which Klebsiella is sensitive. Wean off Solu-Medrol to 40 mg IV daily. Blood pressure elevated. Goal blood pressure less than 140/90 mmHg. Appreciate CBC, BMP. Creatinine improving. Hold off diuretic for 1 more day. Will plan to discharge on lower diuretics than before. Mom Increase hydralazine to 50 mg 3 times a day. Uptitrate as for goal blood pressures. Discharge plan: Plan to discharge home with home health within next 24 to 48 hours depending on clinical picture. Discussed with the patient that given her physical deconditioning it would be appropriate for her to go to SNF for a short while but she states she has home health and daughter who lives nearby who will be able to help her and wants to go home for now. Coding Level of Care Code Acute Code for Chg Fwd Diagnoses Respiratory failure with hypoxia J96.91 CHF exacerbation I50.9 Interstitial pneumonitis J84.89 Human metapneumovirus (hMPV) pneumonia J12.3 Chronic systolic dysfunction of left ventricle I51.9 CKD (chronic kidney disease) N18.9 Persistent atrial fibrillation I48.19 Atrial fibrillation type: persistent (not longstanding) Transaminitis R74.01 Hypokalemia E87.6 Physical deconditioning R53.81
--- NOTE | 2024-02-08 12:28 | PC.SOCIAL ---
IMM Updated Updated pt on IMM. No questions voiced. Provided pt a copy. Initialed, dated, & timed copy in chart.
--- NOTE | 2024-02-08 12:31 | P.DS_ITS ---
Discharge Providers Date of Admission: 02/03/24 19:59 Date of Discharge: February 08, 2024 Attending Provider at Admission: Rayray Peters Attending Provider at Discharge: Saleem Sharpe MD Primary Care Provider: Farhat Acosta MD Diagnoses at Discharge Discharge Diagnosis (1) Respiratory failure with hypoxia: Status: Acute (2) CHF exacerbation: Status: Acute (3) Interstitial pneumonitis: Status: Acute (4) Human metapneumovirus (hMPV) pneumonia: Status: Acute (5) Chronic systolic dysfunction of left ventricle: Status: Acute (6) CKD (chronic kidney disease): Status: Chronic (7) Atrial fibrillation: Status: Acute Qualifiers: Atrial fibrillation type: persistent (not longstanding) Qualified Code(s): I48.19 - Other persistent atrial fibrillation (8) Transaminitis: Status: Acute (9) Hypokalemia: Status: Acute (10) Physical deconditioning: Status: Acute Reason for Visit Reason for Visit: SOB Brief History: History as per HPI: Pleasant 68-year-old lady recently hospitalized and discharged on 03/03 after treatment for CHF exacerbation, returns to the hospital due to shortness of breath, dyspnea, generalized weakness, difficulties with ambulation, desaturating easily despite baseline oxygen of about 3 L/min. Also with some cough, subjective fever, chills, in ER with leukocytosis 15.59, sinus tachycardia 107, mild tachypnea 20-21. Some intermittent chest heaviness. Baseline troponin 48. NT proBNP 2140. Weight of 143 kg. Chest x-ray with increased interstitial markings with peribronchial cuffing throughout both lungs nonspecific but possibly bronchitis, pulmonary vascular congestion, viral infection versus small vessel airway disease. Hospital Course Hospital Course She was admitted to the hospital for evaluation and management of hypoxic respiratory failure in setting of COPD exacerbation in setting of metapneumovirus along with left lower lobe pneumonia. She was started on broad- spectrum IV antibiotics, nebulization treatment along with steroids. At first there were also concerns for diastolic heart failure for which started on IV diuretics. While being on IV diuretics she did develop acute kidney injury. She gradually improved and worked well with physical therapy. During hospitalization her blood culture remain negative. Sputum culture grew Klebsiella. Patient gradually improved, remained on 3 L oxygen supplementation. She continue to work better with physical therapy. Safe discharge plan discussed in detail with the patient and she decided to go home with home health. She has been discharged on oral Levaquin for 2 more days, steroid taper with home health. Physical Exam Narrative: General: No acute distress, AO x3 HEENT: PERRLA, pupils bilaterally equal and reactive Chest: Normal vesicular breath sounds, no added sounds, equal good air entry bilaterally CVS: S1-S2 regular, no murmurs, no tachycardia, no gallops, no rubs Abdomen: Soft, nontender, no organomegaly, bowel sounds present Neuro: No focal deficits, no facial deformity, AO x3, power 5/5 in all limbs Urinary Catheter Management: Esposito: Cath Placed During This Visit: yes, but has since been removed by the nurse Reason for Continuing Indwelling Catheter: Decision to DC Catheter Urinary Catheter Date of Insertion: 02/04/24 Date Urinary Catheter Removed: 02/07/24 Time Urinary Catheter Discontinued: 19:30 Discharge Data Studies Completed and Pending Completed Studies During Hospitalization Category Date Time Status CT chest wo con [id number] Urgent Cat Scan 02/04/24 09:05 Completed XR chest 1V portable [id number] Stat Exams 02/03/24 16:45 Completed CV. echo complete* [id number] Routine Ultrasound 02/04/24 22:29 Completed Radiology Impressions Chest X-Ray 02/03/24 16:45 IMPRESSION: Increased interstitial markings with peribronchial cuffing throughout both lungs are nonspecific but can be seen the setting of bronchitis, pulmonary vascular congestion, viral infection and small-vessel airways disease. Chest CT 02/04/24 09:05 IMPRESSION: Masslike opacities in the left lower lobe. Three-month follow-up chest CT recommended. Echocardiogram: CONCLUSIONS Diffuse hypokinesis of the left ventricle with an ejection fraction of 45%. Mild biatrial enlargement. Mild mitral annular calcification. Mild tricuspid valve regurgitation. Estimated pulmonary artery peak systolic pressure 38 mmHg Trace pulmonary valve regurgitation. There is no pericardial effusion. Comparison with the previous study is difficult because of the difference in the technical quality. Dr Sherman Chapman MD [facility] (Electronically Signed) Final Date: 04 February 2024 Microbiology 02/04/24 11:06 Urine,Clean Catch Urine Culture - Final 02/04/24 13:37 Sputum - Expectorated Sputum Gram Stain - Final 02/04/24 13:37 Sputum - Expectorated Sputum Sputum Culture - Final Klebsiella pneumoniae 02/04/24 11:06 Unknown Source Legionella Urinary Antigen - Final 02/04/24 11:06 Urine Kidney Bacterial Antigens - Final Laboratory Results WBC 11.02 10^3/uL (3.29-11.43) 02/08/24 03:31 RBC 6.04 10^6/uL (3.85-5.65) H 02/08/24 03:31 Hgb 16.60 g/dL (11.27-16.99) 02/08/24 03:31 Hct 53.0 % (36-47) H 02/08/24 03:31 MCV 87.7 fl (85-98) 02/08/24 03:31 MCH 27.5 pg (27-33) 02/08/24 03:31 MCHC 31.3 g/dL (30-55) 02/08/24 03:31 RDW 15.1 % (12.1-15.1) 02/08/24 03:31 Plt Count 270 10^3/cmm (157-399) 02/08/24 03:31 MPV 11.5 fL (7.4-10.4) H 02/08/24 03:31 Neut % (Auto) 76.9 % 02/08/24 03:31 Lymph % (Auto) 8.1 % 02/08/24 03:31 [place] % (Auto) 9.9 % 02/08/24 03:31 Eos % (Auto) 0.0 % 02/08/24 03:31 Baso % (Auto) 0.6 % 02/08/24 03:31 Neut # (Auto) 8.47 10^3/uL (1.8-7.7) H 02/08/24 03:31 Lymph # (Auto) 0.9 10^3/uL (0.8-4.8) 02/08/24 03:31 [place] # (Auto) 1.1 10^3/uL (0.2-0.9) H 02/08/24 03:31 Eos # (Auto) 0.0 10^3/uL (0.0-0.8) 02/08/24 03:31 Baso # (Auto) 0.1 10^3/uL (0.0-0.1) 02/08/24 03:31 Nucleated RBC % (auto) 0 % 02/08/24 03:31 Nucleated RBCs # 0.0 /100WBC 02/08/24 03:31 Specimen Type Arterial 02/03/24 19:45 Sample Site Brachial, left 02/03/24 19:45 ABG pH 7.50 (7.35-7.45) H 02/03/24 19:45 ABG pCO2 54.6 mmHg (35-45) H 02/03/24 19:45 ABG pO2 59.9 mmHg (80.0-100.0) L 02/03/24 19:45 ABG HCO3 42.0 mmol/L (22-26) H 02/03/24 19:45 ABG Base Excess 15.1 mmol/L (-2.0-2.0) H 02/03/24 19:45 [place]ito Test Pos 02/03/24 19:45 Hematocrit 57.1 % (37-47) H 02/03/24 19:45 O2 Delivery Device Nc 02/03/24 19:45 O2 Liters/Min 3.0 % 02/03/24 19:45 Certified Wellness Program Manager ID [email or web address] 02/03/24 19:45 Sodium 140 mmol/L (136-145) 02/08/24 03:31 Potassium 4.0 mmol/L (3.5-5.1) 02/08/24 03:31 Chloride 99 mmol/L (98-107) 02/08/24 03:31 Carbon Dioxide 31 mmol/L (22-29) H 02/08/24 03:31 Anion Gap 14.0 (5-19) 02/08/24 03:31 BUN 62 mg/dL (8-23) H 02/08/24 03:31 Creatinine 1.1 mg/dL (0.5-0.9) H 02/08/24 03:31 GFR Calculation 49.2 mL/min (90-130) L 02/08/24 03:31 Glucose 232 mg/dL (65-115) H 02/08/24 03:31 POC Glucose 333 mg/dL (70-110) H 02/08/24 10:39 Calculated Osmolality 315 mOsm/kg (285-295) H 02/08/24 03:31 Calcium 8.7 mg/dL (8.5-10.5) 02/08/24 03:31 Magnesium 2.2 mg/dL (1.7-2.3) 02/07/24 05:13 Iron 27 ug/dL (37-145) L 02/04/24 00:47 TIBC 322 mcg/dl 02/04/24 00:47 % Saturation 8.3 % (20-50) L 02/04/24 00:47 Unsat Iron Binding 295 ug/dL (112-347) 02/04/24 00:47 Total Bilirubin 0.5 mg/dL (0.15-1.2) 02/08/24 03:31 AST 20 U/L (0-32) 02/08/24 03:31 ALT 51 U/L (0-33) H 02/08/24 03:31 Alkaline Phosphatase 68 U/L (35-105) 02/08/24 03:31 Troponin T Baseline 48 ng/L (0-10) H 02/03/24 17:03 Troponin T 120 Minute 46.78 ng/L (0-10) H 02/03/24 19:02 Delta Troponin T -1.22 ABS# (0-10) L 02/03/24 19:02 Troponin T Hi Sens 6Hr 56.34 ng/L (0-10) H 02/04/24 00:47 Troponin T Hi Sens 6Hr Delta 8.34 ng/L (0-12) 02/04/24 00:47 NT-Pro-B Natriuret Pep 2140 pg/mL (0-125) H 02/03/24 17:03 Total Protein 5.8 g/dL (6.6-8.7) L 02/08/24 03:31 Albumin 2.9 g/dL (3.5-5.2) L 02/08/24 03:31 Globulin 2.9 g/dL (1.3-4.6) 02/08/24 03:31 Triglycerides 114 mg/dL (0-150) 02/05/24 05:09 Cholesterol 171 mg/dL (0-200) 02/05/24 05:09 LDL Cholesterol, Calc 93 mg/dL (50-129) 02/05/24 05:09 Total VLDL Cholesterol 23 mg/dL (0-30) 02/05/24 05:09 HDL Cholesterol 55 mg/dL (60-100) L 02/05/24 05:09 Cholesterol/HDL Ratio 3.11 mg/dL (0.0-4.40) 02/05/24 05:09 Vitamin B12 > 2000 pg/mL (232-1245) H 02/04/24 00:47 Folate 7.1 ng/mL (4.8-37.3) 02/05/24 05:09 Procalcitonin 0.21 ng/mL (0-0.5) 02/04/24 00:47 Urine Color Yellow (Yellow) 02/04/24 11:06 Urine Appearance Clear (CLEAR) 02/04/24 11:06 Urine pH 5 (5-7) 02/04/24 11:06 Ur Specific [place] 1.010 (1.005-1.030) 02/04/24 11:06 Urine Protein 1+ (Negative) H 02/04/24 11:06 Urine Glucose (UA) Norm (Normal) 02/04/24 11:06 Urine Ketones Negative (Negative) 02/04/24 11:06 Urine Blood 3+ (Negative) H 02/04/24 11:06 Urine Nitrate Negative (Negative) 02/04/24 11:06 Urine Bilirubin Neg (Negative) 02/04/24 11:06 Urine Urobilinogen Norm mg/dL (Negative) 02/04/24 11:06 Ur Leukocyte Esterase Trace (Negative) H 02/04/24 11:06 Urine RBC 25-40 /hpf (0-2) H 02/04/24 11:06 Urine WBC 0-4 /hpf (0-5) H 02/04/24 11:06 Ur Eosinophil Smear 0 (0-0) 02/06/24 19:54 Ur Squamous Epith Cells 0-4 /hpf (0-5) H 02/04/24 11:06 Amorphous Sediment Not Reportable 02/04/24 11:06 Urine Bacteria 1+ /hpf (NONE) H 02/04/24 11:06 Hyaline Casts 0-4 /lpf H 02/04/24 11:06 Urine Eosinophils No eosinophils seen 02/06/24 19:54 Ur Random Sodium 20 mmol/L 02/06/24 19:54 Ur Random Potassium 33 mmol/L 02/06/24 19:54 Ur Random Chloride 16 mmol/L 02/06/24 19:54 Urine Creatinine 48 mg/dL (28-217) 02/06/24 19:54 Vancomycin Trough 9.5 ug/mL (10-15) L 02/07/24 08:58 Adenovirus (PCR) Not detected (NOT DETECT) 02/03/24 19:10 C. pneumoniae DNA (PCR) Not detected (NOT DETECT) 02/03/24 19:10 Coronavirus 229E (PCR) Not detected (NOT DETECT) 02/03/24 19:10 Human Metapneumovir PCR Detected (NOT DETECT) A 02/03/24 19:10 Influenza A (H1) PCR Not detected (NOT DETECT) 02/03/24 19:10 Influ A (H1/09) PCR Not detected (NOT DETECT) 02/03/24 19:10 Influenza A (H3) PCR Not detected (NOT DETECT) 02/03/24 19:10 Influenza Type A (PCR) Not detected (NOT DETECT) 02/03/24 19:10 Influenza Type B (PCR) Not detected (NOT DETECT) 02/03/24 19:10 M. pneumoniae (PCR) Not detected (NOT DETECT) 02/03/24 19:10 Parainfluenza 1 (PCR) Not detected (NOT DETECT) 02/03/24 19:10 Parainfluenza 2 (PCR) Not detected (NOT DETECT) 02/03/24 19:10 Parainfluenza 3 (PCR) Not detected (NOT DETECT) 02/03/24 19:10 Parainfluenza 4 (PCR) Not detected (NOT DETECT) 02/03/24 19:10 RSV Type A (PCR) Not detected (NOT DETECT) 02/03/24 19:10 RSV Type B (PCR) Not detected (NOT DETECT) 02/03/24 19:10 Entero/Rhino (PCR) Not detected (NOT DETECT) 02/03/24 19:10 SARS-CoV-2 (PCR) Not detected (NOT DETECT) 02/03/24 19:10 Vitals Last Vital Signs Temp 97.7 F 02/08/24 08:00 Pulse 70 02/08/24 08:29 Resp 18 02/08/24 08:20 BP 161/91 02/08/24 08:00 Pulse Ox 97 02/08/24 08:20 O2 Del Method Nasal Cannula 02/08/24 08:20 O2 Flow Rate 3 02/08/24 08:20 Discharge Plan Discharge Patient Disposition: Home Health Service Condition: Stable Prescriptions: New levalbuterol HCl 0.63 mg/3 mL Solution For Nebulization 0.63 mg inhalation Q6H.RESP 14 Days Qty: 168 0RF hydralazine 25 mg Tablet 50 mg PO TID 30 Days Qty: 180 0RF ipratropium bromide 0.02 % Solution 0.5 mg inhalation Q6H.RESP 14 Days Qty: 140 0RF prednisone 10 mg tablet See Taper PO DIRECTED Qty: 42 0RF Taper: predniSONE 60-10 60 mg Daily for 2 Days and 0 Hour 50 mg Daily for 2 Days and 0 Hour 40 mg Daily for 2 Days and 0 Hour 30 mg Daily for 2 Days and 0 Hour 20 mg Daily for 2 Days and 0 Hour 10 mg Daily for 2 Days and 0 Hour Rx Instructions: see taper instructions levofloxacin 750 mg tablet 750 mg PO DAILY Qty: 2 0RF Continued ketoconazole 2 % cream 1 applic topical BID Qty: 30 3RF Rx Instructions: Apply to affected areas in skin folds X3 weeks then PRN for flares. hydrocodone-acetaminophen 5-325 mg tablet 1 tab PO Q6H PRN (Reason: pain (scale score 7-10)) 15 Days Qty: 30 0RF (DME) Manual wheelchair See Rx Instructions .Route .MEDSUPPLY Qty: 1 0RF Rx Instructions: As directed (DME) FreeFormula XO Lou 14 Day Sensor Kit See Rx Instructions .Route Qty: 2 11RF Rx Instructions: As directed nitroglycerin [Nitrostat] 0.4 mg tablet, sublingual 0.4 mg SUBLINGUAL Q5M PRN (Reason: Chest Pain) Qty: 30 6RF Rx Instructions: do not exceed 3 doses per episode Ozempic 0.25 mg or 0.5 mg (2 mg/3 mL) pen injector 0.25 mg SUBCUT Q7D Qty: 3 3RF Lantus U-100 Insulin 100 unit/mL solution 90 unit SUBCUT BID Qty: 80 6RF triamcinolone acetonide 0.1 % ointment 1 applic topical BID Qty: 454 2RF Rx Instructions: apply to affected area no more than 2 weeks per month. not for face cyanocobalamin (vitamin B-12) [Vitamin B-12] 1,000 mcg tablet 1,000 mcg PO DAILY Qty: 30 6RF ondansetron HCl 4 mg tablet 4 mg PO Q8H PRN (Reason: nausea and vomiting) Qty: 30 3RF clopidogrel 75 mg tablet 75 mg PO DAILY Qty: 90 3RF (DME) FreeStyle Lou 14 Day Zarephath Misc See Rx Instructions .Route Qty: 1 12RF Rx Instructions: As directed (DME) insulin syringe-needle U-100 [BD Insulin Syringe] 1 mL 29 gauge x 1/2 syringe See Rx Instructions .Route Qty: 100 6RF Rx Instructions: As directed to inject insulin 2-3x/day allopurinol 300 mg tablet 300 mg PO DAILY Qty: 90 3RF apixaban 5 mg tablet 5 mg PO BID Qty: 180 3RF diltiazem HCl 120 mg capsule,extended release 24hr 120 mg PO DAILY Qty: 90 3RF levothyroxine 50 mcg tablet 50 mcg PO DAILY Qty: 90 3RF metoprolol tartrate 100 mg tablet 100 mg PO BID Qty: 180 3RF potassium chloride 20 mEq tablet,ER particles/crystals 20 meq PO BID Qty: 180 3RF cholecalciferol (vitamin D3) 50 mcg (2,000 unit) capsule 50 mcg PO DAILY Qty: 30 6RF pregabalin 50 mg capsule 50 mg PO BID Qty: 60 5RF buspirone 10 mg tablet 10 mg PO TID Qty: 90 1RF Trintellix 10 mg tablet 10 mg PO DAILY Qty: 30 1RF lorazepam 1 mg tablet 1 mg PO BID PRN (Reason: anxiety) Qty: 60 1RF acetaminophen 500 mg Tablet 1,000 mg PO Q6H PRN (Reason: Pain) simvastatin 40 mg tablet 40 mg PO BEDTIME bumetanide 2 mg tablet 2 mg PO DAILY Qty: 60 4RF tiotropium bromide [Spiriva with HandiHaler] 18 mcg capsule, w/inhalation device 1 cap inhalation DAILY Qty: 90 4RF Rx Instructions: puncture 1 cap using device; one dose = 2 inhalations fluticasone furoate-vilanterol [Breo Ellipta] 200-25 mcg/dose blister with device 1 inh inhalation DAILY Qty: 60 5RF dextromethorphan polistirex [Robitussin ER] 30 mg/5 mL suspension,extended rel 12 hr 10 ml PO Q12H Qty: 89 0RF ketoconazole 2 % shampoo 1 applic topical Q3D Rx Instructions: Lather into scalp 2-3 times weekly. Allow to sit on scalp 5 minutes before rinsing. Discontinued methylprednisolone [Medrol (Obdulio)] 4 mg tablets,dose pack See Rx Instructions .ROUTE .COMPLEX Qty: 21 0RF Rx Instructions: orally per package directions azithromycin 500 mg tablet 500 mg PO DAILY 3 Days Qty: 3 0RF metolazone 10 mg tablet 10 mg PO DAILY Qty: 5 0RF Discharge Orders: Discharge Order (Routine); Ordered 02/08/24 Ordered By: Saleem Sharpe Other Ambulatory Orders: DME: Nebulizer with Neb Kit (Order) Location: None Selected Ordered By: Saleem Sharpe Referrals: [facility] [Outside] [facility] [place] Farhat Acosta MD [Primary Care Provider] - 7-10 days (We have notified your physician's clinic of the need for a follow-up appointment to be scheduled. If you have not heard from them within the next 2 business days, please call them directly. ) Discharge Diet: Cardiac Discharge Activity: Resume usual activity Patient Instructions: Opioid Safety Activity Restrictions/Additional Instructions: Continue steroid taper as prescribed. Take Levaquin for 3 more days. Hydralazine 50 mg 3 times a day has been added to your medication list. Goal blood pressure less than 140/90 mmHg. Recheck BMP in 1 week. Discharge Attestations Time Spent in Discharge Care*: greater than 30 min Specific Discharge Activities: educating patient, discussing with pcp/other providers, discussing with immigration case manager/social workers/dc planners, documenting/other paperwork and evaluating patient/reviewing data Status at Discharge: Cognitive status at discharge: cognitively intact , Behavioral status at discharge: cooperative , Functional status at discharge: uses cane/walker , Overall status at discharge: patient is back to baseline Quality Metrics Clinical Quality Measures [ No reported AMI, CVA or VTE this stay] Coding Level of Care Code Acute Code for g Fwd Diagnoses Respiratory failure with hypoxia J96.91 CHF exacerbation I50.9 Interstitial pneumonitis J84.89 Human metapneumovirus (hMPV) pneumonia J12.3 Chronic systolic dysfunction of left ventricle I51.9 CKD (chronic kidney disease) N18.9 Persistent atrial fibrillation I48.19 Atrial fibrillation type: persistent (not longstanding) Transaminitis R74.01 Hypokalemia E87.6 Physical deconditioning R53.81
== END 2024-02-08 16:59 | disposition home health service (06) | DRG 193 ==
LOC: ER 18:55 → MEDSURG 20:06
PROVIDERS: Emergency Medicine; Admitting Provider Internal Medicine; Emergency Provider Emergency Medicine; PCP Family Medicine; Visit Provider Student in an Organized Health Care Education/Training Program
DX: J12.3 Human metapneumovirus pneumonia (principal); I50.33 Acute on chronic diastolic (congestive) heart failure; J96.21 Acute and chronic respiratory failure with hypoxia; J44.0 Chronic obstructive pulmonary disease with (acute) lower respiratory infection; J44.1 Chronic obstructive pulmonary disease with (acute) exacerbation; I13.0 Hypertensive heart and chronic kidney disease with heart failure and stage 1 through stage 4 chronic kidney disease, or unspecified chronic kidney disease; N17.9 Acute kidney failure, unspecified; Z68.42 Body mass index [BMI] 45.0-49.9, adult; I48.19 Other persistent atrial fibrillation; Z11.52 Encounter for screening for COVID-19; Z99.81 Dependence on supplemental oxygen; N18.9 Chronic kidney disease, unspecified; E11.22 Type 2 diabetes mellitus with diabetic chronic kidney disease; G89.29 Other chronic pain; F41.1 Generalized anxiety disorder; M10.9 Gout, unspecified; B96.1 Klebsiella pneumoniae [K. pneumoniae] as the cause of diseases classified elsewhere; E66.01 Morbid (severe) obesity due to excess calories; E87.6 Hypokalemia; I25.10 Atherosclerotic heart disease of native coronary artery without angina pectoris; E78.00 Pure hypercholesterolemia, unspecified; Z79.85 Long-term (current) use of injectable non-insulin antidiabetic drugs; Z79.02 Long term (current) use of antithrombotics/antiplatelets; Z79.4 Long term (current) use of insulin; M79.7 Fibromyalgia; F32.9 Major depressive disorder, single episode, unspecified; E03.9 Hypothyroidism, unspecified; Z91.81 History of falling; Z87.01 Personal history of pneumonia (recurrent); Z86.14 Personal history of Methicillin resistant Staphylococcus aureus infection; Z95.5 Presence of coronary angioplasty implant and graft
CPT/HCPCS: 36415; 36416; 36600; 51702; 71045; 71250; 80048; 80053; 80061; 80202; 81001; 81003; 81015; 82436; 82570; 82607; 82746; 82803; 82962; 83540; 83550; 83735; 83880; 84133; 84145; 84300; 84484; 85025; 85999; 86403; 87070; 87077; 87086; 87186; 87205; 87449; 87486; 87581; 87633; 93005; 93306; 93970; 94640; 94664; 96372; 96374; 96375; 97116; 97161; 97165; 97530; 99285; G0378; J0456; J0696; J1815; J1940; J2405; J2765; J2919; J3010; J3370; J3490; J7050; J7614; J7626; J7644; Q0144

== ENCOUNTER → 2024-02-14 13:06 | Outpatient (BNVA) | payer MEDICARE, MEDICAID, SELFPAY | PROVIDERS: PCP Family Medicine; Visit Provider Internal Medicine Critical Care Medicine | DX: Z09 Encounter for follow-up examination after completed treatment for conditions other than malignant neoplasm; J44.9 Chronic obstructive pulmonary disease, unspecified; J98.4 Other disorders of lung; J96.10 Chronic respiratory failure, unspecified whether with hypoxia or hypercapnia; J96.11 Chronic respiratory failure with hypoxia; I50.9 Heart failure, unspecified; J96.12 Chronic respiratory failure with hypercapnia; I50.42 Chronic combined systolic (congestive) and diastolic (congestive) heart failure; J84.9 Interstitial pulmonary disease, unspecified; E66.2 Morbid (severe) obesity with alveolar hypoventilation; Z68.41 Body mass index [BMI] 40.0-44.9, adult; T46.2X5A Adverse effect of other antidysrhythmic drugs, initial encounter; I25.5 Ischemic cardiomyopathy; J84.89 Other specified interstitial pulmonary diseases; R53.81 Other malaise | CPT/HCPCS: 99205 ==

== ENCOUNTER 2024-02-25 11:38 | Emergency (ER) | payer MEDICARE, MEDICAID, SELFPAY ==
--- NOTE | 2024-02-25 11:42 | ECG_ITS ---
[facility] Test Date: 2024-02-25 Pat Name: Shauna Sena Department: Room: Gender: Female Academic Associate: : [id number] Requested By: Nadeem Fontaine Order Number: [id number] Rahel MD: Seth Santillan M.D. Measurements Intervals [place] Rate: 64 P: 0 MI: 0 QRS: 24 QRSD: 104 T: 123 QT: 433 QTc: 449 Interpretive Statements ATRIAL FLUTTER LOW QRS VOLTAGE IN PRECORDIAL LEADS [QRS DEFLECTION < 1.0 mV IN CHEST LEADS] INCOMPLETE RIGHT BUNDLE BRANCH BLOCK [90+ ms QRS DURATION, TERMINAL R IN V1/V2, 40+ ms S IN I/aVL/V4/V5/V6] NONSPECIFIC ST & T-WAVE ABNORMALITY Compared to ECG 02/04/2024 08:51:01 Low QRS voltage now present Incomplete right bundle-branch block now present Aberrant conduction of supraventricular beat(s) no longer present Ventricular premature complex(es) no longer present Indeterminate axis no longer present T-wave abnormality still present Electronically Signed On 02-26-2024 7:43:58 CDT by Seth Santillan M.D. [id number]
--- NOTE | 2024-02-25 11:42 | XR_ITS ---
WS: [id number] XR chest 1V portable [id number] REASON FOR EXAM: sob FINDINGS: The chest is relatively unchanged compared to the examination 02/03/2024. Calcified granulomas disease bilaterally. No acute pulmonary parenchymal or pleural abnormality is identified. There is mild cardiomegaly and m ild central pulmonary venous prominence. XR/XR chest 1V portable [id number] IMPRESSION: Stable chest without acute abnormality.
[2024-02-25 12:13] VITALS: BP 139/81; PULSE 62; TEMP 36.3; O2SAT 96; BMI 44.4
[2024-02-25 13:25] LABS: Basophils % 0.5 %; Eosinophils # 0.2 10^3/uL (0.0-0.8); Eosinophils % 2.3 %; Hematocrit 44.8 % (36-47); Lymphocytes # 1.1 10^3/uL (0.8-4.8); Mean Corpuscular HGB Conc 30.6 g/dL (30-55); Mean Corpuscular Hemoglobin 27.7 pg (27-33); Mean Corpuscular Volume 90.5 fl (85-98); Mean Platelet Volume 10.1 fL (7.4-10.4); Monocytes # 0.5 10^3/uL (0.2-0.9); Monocytes % 7.8 %; Neutrophils # 4.75 10^3/uL (1.8-7.7); Neutrophils % 71.5 %; Nucleated Red Blood Cells % 0 %; Platelet Count 219 10^3/cmm (157-399); Red Blood Count 4.95 10^6/uL (3.85-5.65); Red Cell Distribution Width 16.9 % (12.1-15.1); White Blood Count 6.64 10^3/uL (3.29-11.43)
[2024-02-25 13:38] LABS: INR 1.05 (0.8-1.2)
--- NOTE | 2024-02-25 13:39 | W.ED.SOB ---
HPI - SOB/Dyspnea General: Chief Complaint: Shortness of Breath/Dyspnea Stated Complaint: sob, swelling Time Seen by Provider: 02/25/24 13:37 Related Data Home Medications Medication Instructions Recorded Confirmed acetaminophen 500 mg tablet 1,000 mg PO Q6H PRN Pain 05/11/22 02/14/24 ketoconazole 2 % shampoo 1 applic topical Q3D 04/04/23 02/14/24 simvastatin 40 mg tablet 40 mg PO BEDTIME 12/05/23 02/14/24 Previous Rx's Medication Instructions Recorded cyanocobalamin (vitamin B-12) 1,000 mcg PO DAILY #30 tabs 02/05/22 1,000 mcg tablet (Vitamin B-12) ondansetron HCl 4 mg tablet 4 mg PO Q8H PRN nausea and 07/28/22 vomiting #30 tabs ketoconazole 2 % topical cream 1 applic topical BID #30 grams 09/06/22 flash glucose sensor (WaviiStyle #2 ea 03/27/23 Lou 14 Day Sensor kit) clopidogrel 75 mg tablet 75 mg PO DAILY #90 tabs 04/02/23 flash glucose scanning reader #1 ea 05/14/23 (FreeStyle [place] 14 Day [place]) nitroglycerin 0.4 mg sublingual 0.4 mg sublingual Q5M PRN Chest 05/24/23 tablet (Nitrostat) Pain #30 tabs insulin syringe-needle U-100 1 mL #100 ea 06/12/23 29 gauge x 1/2 (BD Insulin Syringe) hydrocodone 5 mg-acetaminophen 325 1 tab PO Q6H PRN pain (scale score 08/20/23 mg tablet 7-10) 15 days #30 tabs semaglutide 0.25 mg or 0.5 mg (2 0.25 mg (0.368 mL) SUBCUT Q7D #3 mL 10/11/23 mg/3 mL) subcutaneous pen injector (Ozempic) allopurinol 300 mg tablet 300 mg PO DAILY #90 tabs 10/22/23 apixaban 5 mg tablet 5 mg PO BID #180 tabs 10/22/23 diltiazem HCl 120 mg 120 mg PO DAILY #90 caps 10/22/23 capsule,extended release 24 hr levothyroxine 50 mcg tablet 50 mcg PO DAILY #90 tabs 10/22/23 metoprolol tartrate 100 mg tablet 100 mg PO BID #180 tabs 10/22/23 potassium chloride 20 mEq 20 meq PO BID #180 tabs 10/22/23 tablet,extended release(part/cryst) cholecalciferol (vitamin D3) 50 50 mcg PO DAILY #30 caps 10/30/23 mcg (2,000 unit) capsule pregabalin 50 mg capsule 50 mg PO BID #60 caps 11/06/23 Manual wheelchair #1 ea 12/05/23 insulin glargine 100 unit/mL 90 unit (0.9 mL) SUBCUT BID #80 mL 12/17/23 subcutaneous solution (Lantus U-100 Insulin) triamcinolone acetonide 0.1 % 1 applic topical BID #454 grams 12/17/23 topical ointment buspirone 10 mg tablet 10 mg PO TID #90 tabs 01/10/24 vortioxetine 10 mg tablet 10 mg PO DAILY #30 tabs 01/10/24 (Trintellix) bumetanide 2 mg tablet 2 mg PO DAILY #60 tabs 02/01/24 dextromethorphan polistirex 30 10 ml PO Q12H #89 mL 02/01/24 mg/5 mL oral susp ext.release 12hr (Robitussin ER) lorazepam 1 mg tablet 1 mg PO BID PRN anxiety #60 tabs 02/07/24 hydralazine 25 mg tablet 50 mg (2 x 25 mg) PO TID 30 days 02/08/24 #180 tabs prednisone 10 mg tablet See Taper PO DIRECTED #42 tabs 02/08/24 azithromycin 250 mg tablet 250 mg PO DAILY #30 tabs 02/14/24 budesonide 0.5 mg/2 mL suspension 0.5 mg (2 mL) inhalation BID COPD 02/14/24 for nebulization 6 months #720 mL formoterol fumarate 20 mcg/2 mL 2 ml inhalation BID copd 90 days 02/14/24 solution for nebulization #120 mL (Perforomist) nystatin 100,000 unit/gram topical 1 applic topical BID #60 grams 02/14/24 powder clotrimazole 1 % topical cream 1 applic topical BID 2 weeks #30 02/20/24 grams fluconazole 200 mg tablet 200 mg PO Q72H #3 tabs 02/20/24 Allergies Allergy/AdvReac Type Severity Reaction Status Date / Time morphine Allergy Severe Quit Verified 02/25/24 12:18 breathing amiodarone Allergy ALGY-Anaphy Verified 02/25/24 12:18 laxis shellfish derived AdvReac Severe Hives & Verified 02/25/24 12:18 throat swells meperidine [From Demerol] AdvReac Intermediate Made N & V Verified 02/25/24 12:18 Penicillins AdvReac Intermediate RAsh Verified 02/25/24 12:18 PFSH ED PFSH: Medical History (Updated 02/23/24 @ 19:23 by Miguelina Walters MD) Atherosclerotic heart disease of [place] coronary artery with unstable angina pectoris CKD (chronic kidney disease) CHF (congestive heart failure) Acute hip pain Fall Weakness COPD with acute exacerbation Acute on chronic hypoxic respiratory failure Pneumonia CHF exacerbation SOB (shortness of breath) Urinary retention Abscess Gait instability Positive cardiac stress test Fluid overload Muscle pain Skin rash Diarrhea Bronchospasm Hyperglycemia Chronic pain Diarrhea Generalized anxiety disorder Type 2 diabetes mellitus MRSA (methicillin resistant staph aureus) culture positive Influenza A Community acquired pneumonia Vitamin B12 deficiency Diabetes type 2, uncontrolled Psychiatric care Polypharmacy Gout Hyperlipidemia Hypothyroidism Fibromyalgia Depression Chronic respiratory failure Amiodarone pulmonary toxicity Atrial fibrillation Hypercholesteremia HTN (hypertension) CAD (coronary artery disease) Last echocardiogram 08/06 with EF of 50% Stents x 3 - last in 02/2023 Major depressive disorder, recurrent severe without psychotic features Chronic pain She reports taking pain medicines and muscle relaxers for a recent back injury; she has chronic left leg pain. Surgical History History of incision and drainage Right breast abscess History of coronary artery stent placement H/O left knee surgery Hx of cholecystectomy History of hysterectomy partial H/O section History of back surgery H/O eye surgery History of carpal tunnel release H/O cardiac radiofrequency ablation Family History Mother Cancer breast Stroke Brother Heart disease Asthma Cancer prostate Sister Heart disease Social History Smoking and tobacco/nicotine status: never used tobacco/nicotine Alcohol intake: never Substance/Drug Use: never Housing: Other Details: Currently with her family Course Vital Signs: Vital signs: Vital Signs Temperature 97.3 F L 02/25/24 12:13 Pulse Rate 62 02/25/24 12:13 Blood Pressure 139/81 02/25/24 12:13 Pulse Oximetry 96 02/25/24 12:13 Oxygen Delivery Me thod Nasal Cannula 02/25/24 12:13 Oxygen Flow Rate 3 02/25/24 12:13 MDM - SOB/Dyspnea Lab Data 02/25/24 13:01 02/25/24 13:01 Labs/Radiology: Radiology Impressions Chest X-Ray 02/25/24 11:42 IMPRESSION: Stable chest without acute abnormality. Laboratory Results WBC 6.64 10^3/uL (3.29-11.43) 02/25/24 13:01 RBC 4.95 10^6/uL (3.85-5.65) 02/25/24 13:01 Hgb 13.70 g/dL (11.27-16.99) 02/25/24 13:01 Hct 44.8 % (36-47) 02/25/24 13:01 MCV 90.5 fl (85-98) 02/25/24 13:01 MCH 27.7 pg (27-33) 02/25/24 13:01 MCHC 30.6 g/dL (30-55) 02/25/24 13:01 RDW 16.9 % (12.1-15.1) H 02/25/24 13:01 Plt Count 219 10^3/cmm (157-399) 02/25/24 13:01 MPV 10.1 fL (7.4-10.4) 02/25/24 13:01 Neut % (Auto) 71.5 % 02/25/24 13:01 Lymph % (Auto) 17.0 % 02/25/24 13:01 [place] % (Auto) 7.8 % 02/25/24 13:01 Eos % (Auto) 2.3 % 02/25/24 13:01 Baso % (Auto) 0.5 % 02/25/24 13:01 Neut # (Auto) 4.75 10^3/uL (1.8-7.7) 02/25/24 13:01 Lymph # (Auto) 1.1 10^3/uL (0.8-4.8) 02/25/24 13:01 [place] # (Auto) 0.5 10^3/uL (0.2-0.9) 02/25/24 13:01 Eos # (Auto) 0.2 10^3/uL (0.0-0.8) 02/25/24 13:01 Baso # (Auto) 0.0 10^3/uL (0.0-0.1) 02/25/24 13:01 Nucleated RBC % (auto) 0 % 02/25/24 13:01 Nucleated RBCs # 0.0 /100WBC 02/25/24 13:01 PT 14.10 SECONDS (12.1-14.9) 02/25/24 13:01 INR 1.05 (0.8-1.2) 02/25/24 13:01 All radiology interpretation(s) finalized by discharge Discharge Plan Discharge Condition: Stable Prescriptions: No Action ketoconazole 2 % cream 1 applic topical BID Qty: 30 3RF Rx Instructions: Apply to affected areas in skin folds X3 weeks then PRN for flares. hydrocodone-acetaminophen 5-325 mg tablet 1 tab PO Q6H PRN (Reason: pain (scale score 7-10)) 15 Days Qty: 30 0RF (DME) Manual wheelchair See Rx Instructions .Route .MEDSUPPLY Qty: 1 0RF Rx Instructions: As directed budesonide 0.5 mg/2 mL suspension for nebulization 0.5 mg inhalation BID 180 Days Qty: 720 6RF azithromycin 250 mg tablet 250 mg PO DAILY MDD 250 mg Qty: 30 3RF Rx Instructions: 250 mg Sunday Wesunday formoterol fumarate [Perforomist] 20 mcg/2 mL solution for nebulization 2 ml inhalation BID 90 Days Qty: 120 0RF clotrimazole 1 % cream 1 applic topical BID 14 Days Qty: 30 0RF fluconazole 200 mg tablet 200 mg PO Q72H Qty: 3 0RF (DME) FreeStyle Lou 14 Day Sensor Kit See Rx Instructions .Route Qty: 2 11RF Rx Instructions: As directed nitroglycerin [Nitrostat] 0.4 mg tablet, sublingual 0.4 mg SUBLINGUAL Q5M PRN (Reason: Chest Pain) Qty: 30 6RF Rx Instructions: do not exceed 3 doses per episode Ozempic 0.25 mg or 0.5 mg (2 mg/3 mL) pen injector 0.25 mg SUBCUT Q7D Qty: 3 3RF Lantus U-100 Insulin 100 unit/mL solution 90 unit SUBCUT BID Qty: 80 6RF triamcinolone acetonide 0.1 % ointment 1 applic topical BID Qty: 454 2RF Rx Instructions: apply to affected area no more than 2 weeks per month. not for face cyanocobalamin (vitamin B-12) [Vitamin B-12] 1,000 mcg tablet 1,000 mcg PO DAILY Qty: 30 6RF ondansetron HCl 4 mg tablet 4 mg PO Q8H PRN (Reason: nausea and vomiting) Qty: 30 3RF clopidogrel 75 mg tablet 75 mg PO DAILY Qty: 90 3RF (DME) FreeStyle Lou 14 Day [place] Misc See Rx Instructions .Route Qty: 1 12RF Rx Instructions: As directed (DME) insulin syringe-needle U-100 [BD Insulin Syringe] 1 mL 29 gauge x 1/2 syringe See Rx Instructions .Route Qty: 100 6RF Rx Instructions: As directed to inject insulin 2-3x/day allopurinol 300 mg tablet 300 mg PO DAILY Qty: 90 3RF apixaban 5 mg tablet 5 mg PO BID Qty: 180 3RF diltiazem HCl 120 mg capsule,extended release 24hr 120 mg PO DAILY Qty: 90 3RF levothyroxine 50 mcg tablet 50 mcg PO DAILY Qty: 90 3RF metoprolol tartrate 100 mg tablet 100 mg PO BID Qty: 180 3RF potassium chloride 20 mEq tablet,ER particles/crystals 20 meq PO BID Qty: 180 3RF cholecalciferol (vitamin D3) 50 mcg (2,000 unit) capsule 50 mcg PO DAILY Qty: 30 6RF pregabalin 50 mg capsule 50 mg PO BID Qty: 60 5RF buspirone 10 mg tablet 10 mg PO TID Qty: 90 1RF Trintellix 10 mg tablet 10 mg PO DAILY Qty: 30 1RF lorazepam 1 mg tablet 1 mg PO BID PRN (Reason: anxiety) Qty: 60 1RF nystatin 100,000 unit/gram powder 1 applic topical BID Qty: 60 6RF acetaminophen 500 mg Tablet 1,000 mg PO Q6H PRN (Reason: Pain) simvastatin 40 mg tablet 40 mg PO BEDTIME bumetanide 2 mg tablet 2 mg PO DAILY Qty: 60 4RF dextromethorphan polistirex [Robitussin ER] 30 mg/5 mL suspension,extended rel 12 hr 10 ml PO Q12H Qty: 89 0RF ketoconazole 2 % shampoo 1 applic topical Q3D Rx Instructions: Lather into scalp 2-3 times weekly. Allow to sit on scalp 5 minutes before rinsing. hydralazine 25 mg Tablet 50 mg PO TID 30 Days Qty: 180 0RF prednisone 10 mg tablet See Taper PO DIRECTED Qty: 42 0RF Taper: predniSONE 60-10 60 mg Daily for 2 Days and 0 Hour 50 mg Daily for 2 Days and 0 Hour 40 mg Daily for 2 Days and 0 Hour 30 mg Daily for 2 Days and 0 Hour 20 mg Daily for 2 Days and 0 Hour 10 mg Daily for 2 Days and 0 Hour Rx Instructions: see taper instructions Referrals: Farhat Acosta MD [Primary Care Provider] - Coding Level of Care Code ED [employer] for Gerson Morgan
--- NOTE | 2024-02-25 13:49 | ED_ITS ---
HPI - General Adult 2 General: Chief complaint: Shortness of Breath/Dyspnea Stated complaint: sob, swelling Time Seen by Provider: 02/25/24 13:37 Source: patient Mode of arrival: ambulatory Limitations: no limitations History of Present Illness: Patient is a 68-year-old female with an extensive past medical history including chronic respiratory failure on 3L O2 continuously, ischemic cardiomyopathy, hyperlipidema, HTN, type II diabetes, hypothyroidism, CAD with previous cardiac stents, chronic congestive heart failure with reduced EF (last echo Jan 2024 with EF of 45%), chronic constrictive lung disease, interstitial lung disease, CKD, atrial fibrillation, obstructive sleep apnea, major depressive disorder, chronic pain/fibromyalgia, and obesity with hypoventilation syndrome here for complaints of leg/abdominal swelling. Patient states she has been taking her Lasix 120mg BID but this is not helping. Patient has had 2 recent hospitalizations last month. She has recently followed up with pulmonology as well. She has not had to increase her home oxygen requirement. Onset (ago): day(s) Severity: moderate Relieving factors: none Exacerbating factors: none Associated symptoms: Reports dyspnea (chronic) and rash (under abdominal pannus- recently saw provider for this); Deny chest pain, malaise, palpitations or syncope Treatments prior to arrival: none Related Data Home Medications Medication Instructions Recorded Confirmed acetaminophen 500 mg tablet 1,000 mg PO Q6H PRN Pain 05/11/22 02/14/24 ketoconazole 2 % shampoo 1 applic topical Q3D 04/04/23 02/14/24 simvastatin 40 mg tablet 40 mg PO BEDTIME 12/05/23 02/14/24 Previous Rx's Medication Instructions Recorded cyanocobalamin (vitamin B-12) 1,000 mcg PO DAILY #30 tabs 02/05/22 1,000 mcg tablet (Vitamin B-12) ondansetron HCl 4 mg tablet 4 mg PO Q8H PRN nausea and 07/28/22 vomiting #30 tabs ketoconazole 2 % topical cream 1 applic topical BID #30 grams 09/06/22 flash glucose sensor (FreeStyle #2 ea 03/27/23 Lou 14 Day Sensor kit) clopidogrel 75 mg tablet 75 mg PO DAILY #90 tabs 04/02/23 flash glucose scanning reader #1 ea 05/14/23 (FreeStyle Lou 14 Day Maryneal) nitroglycerin 0.4 mg sublingual 0.4 mg sublingual Q5M PRN Chest 05/24/23 tablet (Nitrostat) Pain #30 tabs insulin syringe-needle U-100 1 mL #100 ea 06/12/23 29 gauge x 1/2 (BD Insulin Syringe) hydrocodone 5 mg-acetaminophen 325 1 tab PO Q6H PRN pain (scale score 08/20/23 mg tablet 7-10) 15 days #30 tabs semaglutide 0.25 mg or 0.5 mg (2 0.25 mg (0.368 mL) SUBCUT Q7D #3 mL 10/11/23 mg/3 mL) subcutaneous pen injector (Ozempic) allopurinol 300 mg tablet 300 mg PO DAILY #90 tabs 10/22/23 apixaban 5 mg tablet 5 mg PO BID #180 tabs 10/22/23 diltiazem HCl 120 mg 120 mg PO DAILY #90 caps 10/22/23 capsule,extended release 24 hr levothyroxine 50 mcg tablet 50 mcg PO DAILY #90 tabs 10/22/23 metoprolol tartrate 100 mg tablet 100 mg PO BID #180 tabs 10/22/23 potassium chloride 20 mEq 20 meq PO BID #180 tabs 10/22/23 tablet,extended release(part/cryst) cholecalciferol (vitamin D3) 50 50 mcg PO DAILY #30 caps 10/30/23 mcg (2,000 unit) capsule pregabalin 50 mg capsule 50 mg PO BID #60 caps 11/06/23 Manual wheelchair #1 ea 12/05/23 insulin glargine 100 unit/mL 90 unit (0.9 mL) SUBCUT BID #80 mL 12/17/23 subcutaneous solution (Lantus U-100 Insulin) triamcinolone acetonide 0.1 % 1 applic topical BID #454 grams 12/17/23 topical ointment buspirone 10 mg tablet 10 mg PO TID #90 tabs 01/10/24 vortioxetine 10 mg tablet 10 mg PO DAILY #30 tabs 01/10/24 (Trintellix) bumetanide 2 mg tablet 2 mg PO DAILY #60 tabs 02/01/24 dextromethorphan polistirex 30 10 ml PO Q12H #89 mL 02/01/24 mg/5 mL oral susp ext.release 12hr (Robitussin ER) lorazepam 1 mg tablet 1 mg PO BID PRN anxiety #60 tabs 02/07/24 hydralazine 25 mg tablet 50 mg (2 x 25 mg) PO TID 30 days 02/08/24 #180 tabs prednisone 10 mg tablet See Taper PO DIRECTED #42 tabs 02/08/24 azithromycin 250 mg tablet 250 mg PO DAILY #30 tabs 02/14/24 budesonide 0.5 mg/2 mL suspension 0.5 mg (2 mL) inhalation BID COPD 02/14/24 for nebulization 6 months #720 mL formoterol fumarate 20 mcg/2 mL 2 ml inhalation BID copd 90 days 02/14/24 solution for nebulization #120 mL (Perforomist) nystatin 100,000 unit/gram topical 1 applic topical BID #60 grams 02/14/24 powder clotrimazole 1 % topical cream 1 applic topical BID 2 weeks #30 02/20/24 grams fluconazole 200 mg tablet 200 mg PO Q72H #3 tabs 02/20/24 Allergies Allergy/AdvReac Type Severity Reaction Status Date / Time morphine Allergy Severe Quit Verified 02/25/24 12:18 breathing amiodarone Allergy ALGY-Anaphy Verified 02/25/24 12:18 laxis shellfish derived AdvReac Severe Hives & Verified 02/25/24 12:18 throat swells meperidine [From Demerol] AdvReac Intermediate Made N & V Verified 02/25/24 12:18 Penicillins AdvReac Intermediate RAsh Verified 02/25/24 12:18 Review of Systems 2 Const: Denies: fever(s), chills, body aches, fatigue or malaise Card: Denies: chest pain, palpitations, syncope or pre-syncope Resp: Reports: dyspnea (chronic) and non-productive cough (states it has never fully went away since hospitalization) Musc: Reports: extremity pain and extremity swelling; Denies: joint pain or joint swelling Skin/Breast: Reports: rash (under abdominal pannus-recently saw provider for this) Neuro: Denies: numbness in extremities or sensory changes PFSH ED 2 PFSH: Medical History Atherosclerotic heart disease of [place] coronary artery with unstable angina pectoris CKD (chronic kidney disease) CHF (congestive heart failure) Acute hip pain Fall Weakness COPD with acute exacerbation Acute on chronic hypoxic respiratory failure Pneumonia CHF exacerbation SOB (shortness of breath) Urinary retention Abscess Gait instability Positive cardiac stress test Fluid overload Muscle pain Skin rash Diarrhea Bronchospasm Hyperglycemia Chronic pain Diarrhea Generalized anxiety disorder Type 2 diabetes mellitus MRSA (methicillin resistant staph aureus) culture positive Influenza A Community acquired pneumonia Vitamin B12 deficiency Diabetes type 2, uncontrolled Psychiatric care Polypharmacy Gout Hyperlipidemia Hypothyroidism Fibromyalgia Depression Chronic respiratory failure Amiodarone pulmonary toxicity Atrial fibrillation Hypercholesteremia HTN (hypertension) CAD (coronary artery disease) Last echocardiogram 08/06 with EF of 50% Stents x 3 - last in 02/2023 Major depressive disorder, recurrent severe without psychotic features Chronic pain She reports taking pain medicines and muscle relaxers for a recent back injury; she has chronic left leg pain. Surgical History History of incision and drainage Right breast abscess History of coronary artery stent placement H/O left knee surgery Hx of cholecystectomy History of hysterectomy partial H/O section History of back surgery H/O eye surgery History of carpal tunnel release H/O cardiac radiofrequency ablation Family History Mother Cancer breast Stroke Brother Heart disease Asthma Cancer prostate Sister Heart disease Social History Smoking and tobacco/nicotine status: never used tobacco/nicotine Alcohol intake: never Substance/Drug Use: never Housing: Other Details: Currently with her family Physical Exam 2 Const: COMMON NORMALS: no acute distress, patient oriented x3, no limitations and alert GENERAL APPEARANCE: cooperative NUTRITIONAL APPEARANCE: obese morbidly obese (BMI 44.4) ORIENTATION/CONSCIOUSNESS: Yes awake, Yes oriented to person, Yes oriented to place and Yes oriented to time Resp: COMMON NORMALS: normal respiratory effort and clear to auscultation bilaterally EFFORT & INSPECTION: Yes able to speak in complete sentences A USCULTATION: clear to auscultation bilaterally OTHER: satting 98% on her normal 3L O2 Cardio: COMMON NORMALS: regular rate and regular rhythm RATE: regular rate RHYTHM: regular rhythm GI: OTHER: candidal infection under abdominal pannus/inguinal folds Extremity: NARRATIVE EXTREMITY EXAM: bilateral L>R pitting edema GENERAL: Yes normal exam except as noted Neuro: COMMON NORMALS: patient oriented x3, moves all extremities, no focal motor deficits and no sensory deficits noted SENSORIUM/ORIENTATION: Yes alert, Yes oriented to person, Yes oriented to place and Yes oriented to time Course 2 Vital Signs: Vital signs: Vital Signs Temperature 97.3 F L 02/25/24 12:13 Pulse Rate 61 02/25/24 14:51 Respiratory Rate 18 02/25/24 14:51 Blood Pressure 161/67 02/25/24 14:51 Pulse Oximetry 98 02/25/24 14:51 Oxygen Delivery Me thod Nasal Cannula 02/25/24 14:51 Oxygen Flow Rate 3 02/25/24 14:51 [facility] - General Adult Medical Decision Making Patient is a 68-year-old female with very extensive past medical history here for concerns of lower extremity swelling. Patient's 2 previous hospitalization documentation have been reviewed as well as her recent pulmonology visit. Pulmonology documentation very detailed into patient's comorbidities. Looks like on 01/31 she was supposed to have her Lasix discontinued and started on Bumex however patient never did this stating she was unaware. Her metolazone was also discontinued while in the hospital. Ultimately here patient does not appear acutely fluid overloaded. She is not requiring more oxygen than her baseline requirement. Her CXR does not appear fluid overloaded. Her lung sounds are clear. Blood work overall is unremarkable. Her BUN/Cr are at baseline. BNP is roughly 1200. Baseline troponin of 47 which is baseline. She does have a negative delta. EKG is nonischemic. Patient was given 80mg of IV Lasix. I will have her stop taking her Lasix and start her Bumex as recommended from her last hospitalization. During re-examination patient was able to get a hold of her primary care office and schedule a follow-up visit for this at 3 PM. Return to ED precautions given. Medical Records I reviewed the patient's medical records. Lab Data I reviewed the patient's lab results. 02/25/24 13:01 02/25/24 13:01 Radiology Impressions Chest X-Ray 02/25/24 11:42 IMPRESSION: Stable chest without acute abnormality. Laboratory Results WBC 6.64 10^3/uL (3.29-11.43) 02/25/24 13:01 RBC 4.95 10^6/uL (3.85-5.65) 02/25/24 13:01 Hgb 13.70 g/dL (11.27-16.99) 02/25/24 13:01 Hct 44.8 % (36-47) 02/25/24 13:01 MCV 90.5 fl (85-98) 02/25/24 13:01 MCH 27.7 pg (27-33) 02/25/24 13:01 MCHC 30.6 g/dL (30-55) 02/25/24 13:01 RDW 16.9 % (12.1-15.1) H 02/25/24 13:01 Plt Count 219 10^3/cmm (157-399) 02/25/24 13:01 MPV 10.1 fL (7.4-10.4) 02/25/24 13:01 Neut % (Auto) 71.5 % 02/25/24 13:01 Lymph % (Auto) 17.0 % 02/25/24 13:01 [place] % (Auto) 7.8 % 02/25/24 13:01 Eos % (Auto) 2.3 % 02/25/24 13:01 Baso % (Auto) 0.5 % 02/25/24 13:01 Neut # (Auto) 4.75 10^3/uL (1.8-7.7) 02/25/24 13:01 Lymph # (Auto) 1.1 10^3/uL (0.8-4.8) 02/25/24 13:01 [place] # (Auto) 0.5 10^3/uL (0.2-0.9) 02/25/24 13:01 Eos # (Auto) 0.2 10^3/uL (0.0-0.8) 02/25/24 13:01 Baso # (Auto) 0.0 10^3/uL (0.0-0.1) 02/25/24 13:01 Nucleated RBC % (auto) 0 % 02/25/24 13:01 Nucleated RBCs # 0.0 /100WBC 02/25/24 13:01 PT 14.10 SECONDS (12.1-14.9) 02/25/24 13:01 INR 1.05 (0.8-1.2) 02/25/24 13:01 Sodium 144 mmol/L (136-145) 02/25/24 13:01 Potassium 4.3 mmol/L (3.5-5.1) 02/25/24 13:01 Chloride 102 mmol/L (98-107) 02/25/24 13:01 Carbon Dioxide 34 mmol/L (22-29) H 02/25/24 13:01 Anion Gap 12.3 (5-19) 02/25/24 13:01 BUN 22 mg/dL (8-23) 02/25/24 13:01 Creatinine 1.3 mg/dL (0.5-0.9) H 02/25/24 13:01 GFR Calculation 40.6 mL/min (90-130) L 02/25/24 13:01 Glucose 224 mg/dL (65-115) H 02/25/24 13:01 Calculated Osmolality 308 mOsm/kg (285-295) H 02/25/24 13:01 Calcium 8.8 mg/dL (8.5-10.5) 02/25/24 13:01 Total Bilirubin 0.3 mg/dL (0.15-1.2) 02/25/24 13:01 AST 13 U/L (0-32) 02/25/24 13:01 ALT 25 U/L (0-33) 02/25/24 13:01 Alkaline Phosphatase 78 U/L (35-105) 02/25/24 13:01 Troponin T Baseline 47 ng/L (0-10) H 02/25/24 13:01 Troponin T 120 Minute 44.83 ng/L (0-10) H 02/25/24 14:44 Delta Troponin T -2.17 ABS# (0-10) L 02/25/24 14:44 NT-Pro-B Natriuret Pep 1238 pg/mL (0-125) H 02/25/24 13:01 Total Protein 5.8 g/dL (6.6-8.7) L 02/25/24 13:01 Albumin 3.2 g/dL (3.5-5.2) L 02/25/24 13:01 Globulin 2.6 g/dL (1.3-4.6) 02/25/24 13:01 Procalcitonin 0.08 ng/mL (0-0.5) 02/25/24 13:01 Adenovirus (PCR) Cancelled 02/25/24 14:10 C. pneumoniae DNA (PCR) Cancelled 02/25/24 14:10 Coronavirus (PCR) Negative (Negative) 02/25/24 14:10 Coronavirus 229E (PCR) Cancelled 02/25/24 14:10 Human Metapneumovir PCR Cancelled 02/25/24 14:10 Influenza A (H1) PCR Cancelled 02/25/24 14:10 Influenza A (PCR) Negative (Negative) 02/25/24 14:10 Influ A (H1/09) PCR Cancelled 02/25/24 14:10 Influenza A (H3) PCR Cancelled 02/25/24 14:10 Influenza Type A (PCR) Cancelled 02/25/24 14:10 Influenza Type B (PCR) Cancelled 02/25/24 14:10 Influenza Type B (PCR) Negative (Negative) 02/25/24 14:10 M. pneumoniae (PCR) Cancelled 02/25/24 14:10 Parainfluenza 1 (PCR) Cancelled 02/25/24 14:10 Parainfluenza 2 (PCR) Cancelled 02/25/24 14:10 Parainfluenza 3 (PCR) Cancelled 02/25/24 14:10 Parainfluenza 4 (PCR) Cancelled 02/25/24 14:10 RSV (PCR) Negative (Negative) 02/25/24 14:10 RSV Type A (PCR) Cancelled 02/25/24 14:10 RSV Type B (PCR) Cancelled 02/25/24 14:10 Entero/Rhino (PCR) Cancelled 02/25/24 14:10 SARS-CoV-2 (PCR) Cancelled 02/25/24 14:10 All radiology interpretation(s) finalized by discharge Discharge Plan Discharge Patient Disposition: Home Clinical Impression: Chronic heart failure with reduced ejection fraction and diastolic dysfunction, Bilateral edema of lower extremity Condition: Stable Prescriptions: No Action ketoconazole 2 % cream 1 applic topical BID Qty: 30 3RF Rx Instructions: Apply to affected areas in skin folds X3 weeks then PRN for flares. hydrocodone-acetaminophen 5-325 mg tablet 1 tab PO Q6H PRN (Reason: pain (scale score 7-10)) 15 Days Qty: 30 0RF (DME) Manual wheelchair See Rx Instructions .Route .MEDSUPPLY Qty: 1 0RF Rx Instructions: As directed budesonide 0.5 mg/2 mL suspension for nebulization 0.5 mg inhalation BID 180 Days Qty: 720 6RF azithromycin 250 mg tablet 250 mg PO DAILY MDD 250 mg Qty: 30 3RF Rx Instructions: 250 mg Sunday formoterol fumarate [Perforomist] 20 mcg/2 mL solution for nebulization 2 ml inhalation BID 90 Days Qty: 120 0RF clotrimazole 1 % cream 1 applic topical BID 14 Days Qty: 30 0RF fluconazole 200 mg tablet 200 mg PO Q72H Qty: 3 0RF (DME) FreeStyle Lou 14 Day Sensor Kit See Rx Instructions .Route Qty: 2 11RF Rx Instructions: As directed nitroglycerin [Nitrostat] 0.4 mg tablet, sublingual 0.4 mg SUBLINGUAL Q5M PRN (Reason: Chest Pain) Qty: 30 6RF Rx Instructions: do not exceed 3 doses per episode Ozempic 0.25 mg or 0.5 mg (2 mg/3 mL) pen injector 0.25 mg SUBCUT Q7D Qty: 3 3RF Lantus U-100 Insulin 100 unit/mL solution 90 unit SUBCUT BID Qty: 80 6RF triamcinolone acetonide 0.1 % ointment 1 applic topical BID Qty: 454 2RF Rx Instructions: apply to affected area no more than 2 weeks per month. not for face cyanocobalamin (vitamin B-12) [Vitamin B-12] 1,000 mcg tablet 1,000 mcg PO DAILY Qty: 30 6RF ondansetron HCl 4 mg tablet 4 mg PO Q8H PRN (Reason: nausea and vomiting) Qty: 30 3RF clopidogrel 75 mg tablet 75 mg PO DAILY Qty: 90 3RF (DME) FreeStyle Lou 14 Day Maryneal Misc See Rx Instructions .Route Qty: 1 12RF Rx Instructions: As directed (DME) insulin syringe-needle U-100 [BD Insulin Syringe] 1 mL 29 gauge x 1/2 syringe See Rx Instructions .Route Qty: 100 6RF Rx Instructions: As directed to inject insulin 2-3x/day allopurinol 300 mg tablet 300 mg PO DAILY Qty: 90 3RF apixaban 5 mg tablet 5 mg PO BID Qty: 180 3RF diltiazem HCl 120 mg capsule,extended release 24hr 120 mg PO DAILY Qty: 90 3RF levothyroxine 50 mcg tablet 50 mcg PO DAILY Qty: 90 3RF metoprolol tartrate 100 mg tablet 100 mg PO BID Qty: 180 3RF potassium chloride 20 mEq tablet,ER particles/crystals 20 meq PO BID Qty: 180 3RF cholecalciferol (vitamin D3) 50 mcg (2,000 unit) capsule 50 mcg PO DAILY Qty: 30 6RF pregabalin 50 mg capsule 50 mg PO BID Qty: 60 5RF buspirone 10 mg tablet 10 mg PO TID Qty: 90 1RF Trintellix 10 mg tablet 10 mg PO DAILY Qty: 30 1RF lorazepam 1 mg tablet 1 mg PO BID PRN (Reason: anxiety) Qty: 60 1RF nystatin 100,000 unit/gram powder 1 applic topical BID Qty: 60 6RF acetaminophen 500 mg Tablet 1,000 mg PO Q6H PRN (Reason: Pain) simvastatin 40 mg tablet 40 mg PO BEDTIME bumetanide 2 mg tablet 2 mg PO DAILY Qty: 60 4RF dextromethorphan polistirex [Robitussin ER] 30 mg/5 mL suspension,extended rel 12 hr 10 ml PO Q12H Qty: 89 0RF ketoconazole 2 % shampoo 1 applic topical Q3D Rx Instructions: Lather into scalp 2-3 times weekly. Allow to sit on scalp 5 minutes before rinsing. hydralazine 25 mg Tablet 50 mg PO TID 30 Days Qty: 180 0RF prednisone 10 mg tablet See Taper PO DIRECTED Qty: 42 0RF Taper: predniSONE 60-10 60 mg Daily for 2 Days and 0 Hour 50 mg Daily for 2 Days and 0 Hour 40 mg Daily for 2 Days and 0 Hour 30 mg Daily for 2 Days and 0 Hour 20 mg Daily for 2 Days and 0 Hour 10 mg Daily for 2 Days and 0 Hour Rx Instructions: see taper instructions Discharge Orders: Discharge ED (Routine); Ordered 02/25/24 Ordered By: Sydni Reyna Referrals: Farhat Acosta MD [Primary Care Provider] - Activity Restrictions/Additional Instructions: As we discussed, looking at your previous documentation, your Lasix was discontinued on 01/31 and you were supposed to start Bumex 2mg daily. You have stated you have this medication at home so I recommend you stop taking your Lasix and begin this medication. You may increase this to 2mg twice daily if once daily dosing is not helping with your edema. Please follow-up with Dr. Acosta on at 3:00 as scheduled. You may return to the emergency department at anytime for severe shortness of breath or difficulty breathing, having to increase your home oxygen requirement, or any other concerns you may have. Hope you begin to feel better soon. Coding Level of Care Code ED Nps for Gerson Morgan
[2024-02-25 14:01] LABS: Alanine Aminotransferase 25 U/L (0-33); Albumin Level 3.2 g/dL (3.5-5.2); Alkaline Phosphatase 78 U/L (35-105); Anion Gap 12.3 (5-19); Aspartate Amino Transferase 13 U/L (0-32); Blood Urea Nitrogen 22 mg/dL (8-23); Calcium 8.8 mg/dL (8.5-10.5); Carbon Dioxide 34 mmol/L (22-29); Chloride 102 mmol/L (98-107); Creatinine Clr Calc Pharmacy 58.8797; Globulin 2.6 g/dL (1.3-4.6); Glomerular Filtration Rate 40.6 mL/min (90-130); Glucose 224 mg/dL (65-115); NT Pro B Type Natriuretic Pept 1238 pg/mL (0-125); Osmolality Calculated 308 mOsm/kg (285-295); Potassium 4.3 mmol/L (3.5-5.1); Sodium 144 mmol/L (136-145); Total Bilirubin 0.3 mg/dL (0.15-1.2); Total Protein 5.8 g/dL (6.6-8.7)
[2024-02-25 14:19] LABS: Procalcitonin 0.08 ng/mL (0-0.5); Troponin(5th) Baseline 47 ng/L (0-10)
[2024-02-25 14:51] VITALS: BP 161/67; PULSE 61; RESP 18; O2SAT 98
[2024-02-25] MEDS: FUROsemide 10 mg/mL SDV 10mL 80 MG IVP (14:57)
[2024-02-25 15:17] LABS: Troponin 5 2HR 44.83 ng/L (0-10)
[2024-02-25 15:18] LABS: Troponin 5 2HR Delta -2.17 ABS# (0-10)
[2024-02-25 15:19] LABS: Covid PCR NEGATIVE (Negative); Influenza A NEGATIVE (Negative); Influenza B NEGATIVE (Negative); Respiratory Syncytial Virus Ce NEGATIVE (Negative)
--- NOTE | 2024-02-25 15:41 | ECG_ITS ---
[facility] Test Date: 2024-02-25 Pat Name: Shauna Sena Department: Room: Gender: Female Lead Material Handler: : 1955 Requested By: Sydni Reyna Order Number: [id number] Rahel MD: Seth Santillan M.D. Measurements Intervals [place] Rate: 83 P: 0 MS: 0 QRS: 28 QRSD: 98 T: 60 QT: 372 QTc: 439 Interpretive Statements ATRIAL FLUTTER INDETERMINATE AXIS LOW QRS VOLTAGE IN PRECORDIAL LEADS [QRS DEFLECTION < 1.0 mV IN CHEST LEADS] INCOMPLETE RIGHT BUNDLE BRANCH BLOCK [90+ ms QRS DURATION, TERMINAL R IN V1/V2, 40+ ms S IN I/aVL/V4/V5/V6] NONSPECIFIC ST & T-WAVE ABNORMALITY Compared to ECG 02/25/2024 12:11:42 Indeterminate axis now present T-wave abnormality still present Electronically Signed On 02-26-2024 7:52:44 CDT by Seth Santillan M.D. [id number]
[2024-02-25 15:42] VITALS: BP 189/96; PULSE 66; RESP 18; O2SAT 99
== END 2024-02-25 15:53 | disposition home or self-care (01) ==
PROVIDERS: Emergency Medicine; Emergency Provider Physician Assistant; PCP Family Medicine
DX: I13.0 Hypertensive heart and chronic kidney disease with heart failure and stage 1 through stage 4 chronic kidney disease, or unspecified chronic kidney disease (principal); E11.22 Type 2 diabetes mellitus with diabetic chronic kidney disease; N18.9 Chronic kidney disease, unspecified; I50.42 Chronic combined systolic (congestive) and diastolic (congestive) heart failure; R60.0 Localized edema; Z79.85 Long-term (current) use of injectable non-insulin antidiabetic drugs; Z79.4 Long term (current) use of insulin; Z79.02 Long term (current) use of antithrombotics/antiplatelets; J44.9 Chronic obstructive pulmonary disease, unspecified; E78.5 Hyperlipidemia, unspecified; I25.10 Atherosclerotic heart disease of native coronary artery without angina pectoris
CPT/HCPCS: 0241U; 36415; 71045; 80053; 83880; 84145; 84484; 85025; 85610; 93005; 96374; 99285; J1940

== ENCOUNTER → 2024-03-21 08:14 | Outpatient (BNVA) | payer MEDICARE, MEDICAID, SELFPAY | PROVIDERS: PCP Family Medicine; Visit Provider Family Medicine | DX: Z51.81 Encounter for therapeutic drug level monitoring (principal) | CPT/HCPCS: 80048 ==

== ENCOUNTER 2024-04-29 08:37 | Outpatient (CLI) | payer MEDICARE, MEDICAID, SELFPAY ==
--- NOTE | 2024-04-29 09:00 | MM_ITS ---
WS: [id number] DIAGNOSTIC BILATERAL DIGITAL BREAST TOMOSYNTHESIS MAMMOGRAPHY WITH CAD RIGHT breast ultrasound, limited HISTORY: rt. breast lump COMPARISON: 10/17/2021, 10/03/2021 TECHNIQUE: Bilateral craniocaudad, mediolateral oblique, and mediolateral views are submitted with to mosynthesis and SM. Spot compression RIGHT CC. Computer aided detection utilized. Breast composition: There are scattered areas of fibroglandular density. Increasing focal asymmetry in the anterior RIGHT breast posterior and just lateral to the nipple. The re is an additional asymmetry in the upper outer quadrant on the RIGHT which has been present since 2 020. Skin calcifications in the inferior medial LEFT breast. This was a very difficult examination du e to patient's body habitus. Difficulty positioning the patient. RIGHT breast ultrasound, limited. Irregular shaped spiculated and indistinct hypoechoic mass in the RIGHT breast centered at 12:00. Thi s corresponds to the palpable abnormality and the abnormality noted by mammography. No significant in creased vascularity. Mass may extend along the ducts. Mass measures 3.1 x 1.7 x 2.1 cm. No lymph node s identified in the axilla. MM/MM diag BI tomosynthesis [id number] IMPRESSION: BI-RADS: 4 - Suspicious Finding - Biopsy Should Be Considered. FOLLOW UP: Biopsy Recommended Ultrasound-guided biopsy recommended of the slightly spiculated mass in the RIG HT breast at 12:00. Notified Farhat Acosta MD at 04/29/2024 10:42 AM. Discussed with Nicole.
== END 2024-04-29 08:38 | disposition home or self-care (01) ==
LOC: RAD 08:37
PROVIDERS: PCP Family Medicine; Visit Provider Family Medicine
DX: N63.12 Unspecified lump in the right breast, upper inner quadrant (principal); N64.89 Other specified disorders of breast; R92.323 Mammographic fibroglandular density, bilateral breasts
CPT/HCPCS: 76642; 77062; G0279

== ENCOUNTER 2024-05-14 11:50 | Outpatient (CLI) | payer MEDICARE, MEDICAID, SELFPAY | END 2024-05-14 11:51 | disposition home or self-care (01) | LOC: RAD 11:50 | PROVIDERS: PCP Family Medicine; Visit Provider Family Medicine | DX: N60.21 Fibroadenosis of right breast (principal); N64.1 Fat necrosis of breast | CPT/HCPCS: 19083; 88305; 88342 ==

== ENCOUNTER → 2024-06-03 13:48 | Outpatient (BNVA) | payer MEDICARE, MEDICAID, SELFPAY | PROVIDERS: PCP Family Medicine; Visit Provider Internal Medicine Cardiovascular Disease | DX: I25.118 Atherosclerotic heart disease of native coronary artery with other forms of angina pectoris (principal); I50.42 Chronic combined systolic (congestive) and diastolic (congestive) heart failure; I48.19 Other persistent atrial fibrillation; E78.00 Pure hypercholesterolemia, unspecified; I13.0 Hypertensive heart and chronic kidney disease with heart failure and stage 1 through stage 4 chronic kidney disease, or unspecified chronic kidney disease; E11.22 Type 2 diabetes mellitus with diabetic chronic kidney disease; E11.65 Type 2 diabetes mellitus with hyperglycemia; N18.9 Chronic kidney disease, unspecified; Z79.4 Long term (current) use of insulin; Z79.01 Long term (current) use of anticoagulants | CPT/HCPCS: 99214 ==

== ENCOUNTER 2024-06-04 15:27 | Inpatient (IN) | payer MEDICARE, MEDICAID, SELFPAY ==
[2024-06-04] VITALS (9 sets, daily range): BP systolic 120–156; BP diastolic 77–93; PULSE 79–85; RESP 11–16; TEMP 36.9; O2SAT 97–100; BMI 47.4
--- NOTE | 2024-06-04 17:54 | CTR_ITS ---
PROCEDURE INFORMATION: Exam: CT Chest Without Contrast; Diagnostic Exam date and time: 06/04/2024 6:39 PM Age: 68 years old Clinical indication: Other: Right breast abscess; Additional info: Large right breast abscess TECHNIQUE: Imaging protocol: Diagnostic computed tomography of the chest without contrast. Radiation optimization: All CT scans at this facility use at least one of these dose optimization techniques: automated exposure control; mA and/or kV adjustment per patient size (includes targeted exams where dose is matched to clinical indication); or iterative reconstruction. COMPARISON: CT chest [facility] [id number] 02/04/2024 10:19 AM RADIATION DOSE METRICS: Total DLP (mGy-cm): 852.31 FINDINGS: Lungs: No focal consolidation. No pneumothorax. Pleural spaces: No pleural effusion. Heart: No cardiomegaly. No pericardial effusion. Coronary arteries: There are incidental coronary artery calcifications. Mediastinal space: Trachea and airway are grossly patent. No evidence of mediastinal hemorrhage or hematoma. Lymph nodes: Few prominent and borderline enlarged mediastinal nodes measuring up to 10 mm short axis. Evaluation for hilar adenopathy is limited by lack of IV contrast. Vasculature: No evidence of aneurysmal dilatation of the thoracic aorta. Evaluation for acute vascular injury or thrombosis is limited by lack of IV contrast. Bones/joints: No evidence of acute fracture or aggressive osseous lesion. Soft tissues: Prominent inflammatory changes of the right breast without discrete fluid collection. An underlying inflammatory carcinoma would be difficult to exclude. Other findings: No evidence of acute abnormality in the upper abdomen. CT/CT chest [facility] [id number] IMPRESSION: 1. Prominent inflammatory changes of the right breast without discrete fluid collection. An underlying inflammatory carcinoma would be difficult to exclude. Evaluation at a dedicated breast center is recommended.
[2024-06-04 17:59] LABS: Basophils # 0.1 10^3/uL (0.0-0.1); Eosinophils # 0.3 10^3/uL (0.0-0.8); Eosinophils % 2.8 %; Hematocrit 47.9 % (36-47); Lymphocytes # 1.8 10^3/uL (0.8-4.8); Lymphocytes % 20.2 %; Mean Corpuscular HGB Conc 31.3 g/dL (30-55); Mean Corpuscular Volume 92.6 fl (85-98); Mean Platelet Volume 11.3 fL (7.4-10.4); Monocytes # 0.7 10^3/uL (0.2-0.9); Monocytes % 7.8 %; Neutrophils # 5.92 10^3/uL (1.8-7.7); Neutrophils % 66.6 %; Nucleated Red Blood Cells % 0 %; Platelet Count 276 10^3/cmm (157-399); Red Blood Count 5.17 10^6/uL (3.85-5.65); Red Cell Distribution Width 14.9 % (12.1-15.1); White Blood Count 8.89 10^3/uL (3.29-11.43)
[2024-06-04 18:04] LABS: Erythrocyte Sedimentation Rate 27 mm/hr (0-15)
[2024-06-04 18:18] LABS: Anion Gap 14.2 (5-19); Blood Urea Nitrogen 39 mg/dL (8-23); Calcium 9.7 mg/dL (8.5-10.5); Carbon Dioxide 29 mmol/L (22-29); Chloride 94 mmol/L (98-107); Glomerular Filtration Rate 27.9 mL/min (90-130); Glucose 451 mg/dL (65-115); Osmolality Calculated 305 mOsm/kg (285-295); Potassium 4.2 mmol/L (3.5-5.1); Sodium 133 mmol/L (136-145)
--- NOTE | 2024-06-04 18:22 | W.ED.SKABFB ---
HPI - Skin/Abscess/Foreign Bdy General: Chief complaint: Skin/Abscess/Foreign Body Stated complaint: biopsy, right breast draining and has a knot Time Seen by Provider: 06/04/24 17:42 Source: patient Mode of arrival: ambulatory Limitations: no limitations History of Present Illness: Patient is a 68-year-old female presenting to the emergency department complaining of lesion to right breast. A couple of weeks ago she had a breast biopsy done, states that the biopsy site has since got infected. Was seen at walk-in clinic on 06/02 due to the redness to her right breast, was prescribed Bactrim and has only taken a couple of days worth since. She states the pain has gotten exponentially severe, and has been draining purulent and bloody material. States that the biopsy has since come back okay. She reports taking hydrocodone earlier that did not help. She is not reporting any fever, nausea/vomiting/diarrhea, or other symptoms at this time. Wound is being cultured currently. MD complaint: abscess/boil and lesion Onset (ago): week(s) Tetanus up to date: yes Location: chest (Right breast) Severity: severe Quality: stabbing and constant Pain Consistency: constant Relieving factors: none Exacerbating factors: palpation Context: other (Infected biopsy site) Associated symptoms: Deny chills, fever(s), nausea or vomiting Related Data Home Medications Medication Instructions Recorded Confirmed acetaminophen 500 mg tablet 1,000 mg PO Q6H PRN Pain 05/11/22 06/03/24 ketoconazole 2 % shampoo 1 applic topical Q3D 04/04/23 06/03/24 simvastatin 40 mg tablet 40 mg PO BEDTIME 12/05/23 06/03/24 Previous Rx's Medication Instructions Recorded cyanocobalamin (vitamin B-12) 1,000 mcg PO DAILY #30 tabs 02/05/22 1,000 mcg tablet (Vitamin B-12) ondansetron HCl 4 mg tablet 4 mg PO Q8H PRN nausea and 07/28/22 vomiting #30 tabs ketoconazole 2 % topical cream 1 applic topical BID #30 grams 09/06/22 nitroglycerin 0.4 mg sublingual 0.4 mg sublingual Q5M PRN Chest 05/24/23 tablet (Nitrostat) Pain #30 tabs insulin syringe-needle U-100 1 mL #100 ea 06/12/23 29 gauge x 1/2 (BD Insulin Syringe) semaglutide 0.25 mg or 0.5 mg (2 0.25 mg (0.368 mL) SUBCUT Q7D #3 mL 10/11/23 mg/3 mL) subcutaneous pen injector (Ozempic) allopurinol 300 mg tablet 300 mg PO DAILY #90 tabs 10/22/23 apixaban 5 mg tablet 5 mg PO BID #180 tabs 10/22/23 diltiazem HCl 120 mg 120 mg PO DAILY #90 caps 10/22/23 capsule,extended release 24 hr levothyroxine 50 mcg tablet 50 mcg PO DAILY #90 tabs 10/22/23 metoprolol tartrate 100 mg tablet 100 mg PO BID #180 tabs 10/22/23 potassium chloride 20 mEq 20 meq PO BID #180 tabs 10/22/23 tablet,extended release(part/cryst) cholecalciferol (vitamin D3) 50 50 mcg PO DAILY #30 caps 10/30/23 mcg (2,000 unit) capsule Manual wheelchair #1 ea 12/05/23 insulin glargine 100 unit/mL 90 unit (0.9 mL) SUBCUT BID #80 mL 12/17/23 subcutaneous solution (Lantus U-100 Insulin) triamcinolone acetonide 0.1 % 1 applic topical BID #454 grams 12/17/23 topical ointment bumetanide 2 mg tablet 2 mg PO DAILY #60 tabs 02/01/24 dextromethorphan polistirex 30 10 ml PO Q12H #89 mL 02/01/24 mg/5 mL oral susp ext.release 12hr (Robitussin ER) budesonide 0.5 mg/2 mL suspension 0.5 mg (2 mL) inhalation BID COPD 02/14/24 for nebulization 6 months #720 mL formoterol fumarate 20 mcg/2 mL 2 ml inhalation BID copd 90 days 02/14/24 solution for nebulization #120 mL (Perforomist) nystatin 100,000 unit/gram topical 1 applic topical BID #60 grams 02/14/24 powder clotrimazole 1 % topical cream 1 applic topical BID 2 weeks #30 02/20/24 grams furosemide 40 mg tablet 120 mg (3 x 40 mg) PO TID edema 02/28/24 #270 tabs itraconazole 100 mg capsule 200 mg (2 x 100 mg) PO DAILY #6 02/28/24 caps ostomy supplies-skin barrier 6 X #60 wafers 02/28/24 6 wafer (Coloplast Skin Barrier) spironolactone 25 mg tablet 25 mg PO DAILY #30 tabs 02/28/24 clopidogrel 75 mg tablet 75 mg PO DAILY #90 tabs 03/27/24 hydrocodone 5 mg-acetaminophen 325 1 tab PO Q6H PRN pain (scale score 04/21/24 mg tablet 7-10) 15 days #30 tabs flash glucose scanning reader #2 ea 04/28/24 (FreeStyle Lou 14 Day [place]) flash glucose sensor (FreeStyle #2 ea 04/28/24 Lou 14 Day Sensor kit) pregabalin 50 mg capsule 50 mg PO BID #60 caps 04/28/24 buspirone 10 mg tablet 10 mg PO TID #90 tabs 05/26/24 lorazepam 1 mg tablet 1 mg PO BID PRN anxiety #60 tabs 05/26/24 vortioxetine 10 mg tablet 10 mg PO DAILY #30 tabs 05/26/24 (Trintellix) mupirocin 2 % topical ointment 1 applic topical TID 7 days #22 06/02/24 grams sulfamethoxazole 800 2 tab PO BID 7 days #28 tabs 06/02/24 mg-trimethoprim 160 mg tablet (Bactrim DS) isosorbide mononitrate 30 mg 30 mg PO DAILY #30 tabs 06/03/24 tablet,extended release 24 hr Allergies Allergy/AdvReac Type Severity Reaction Status Date / Time morphine Allergy Severe Quit Verified 06/03/24 13:57 breathing amiodarone Allergy ALGY-Anaphy Verified 06/03/24 13:57 laxis shellfish derived AdvReac Severe Hives & Verified 06/03/24 13:57 throat swells meperidine [From Demerol] AdvReac Intermediate Made N & V Verified 06/03/24 13:57 Penicillins AdvReac Intermediate RAsh Verified 06/03/24 13:57 Review of Systems General: Reports: 10 or more systems reviewed and unremarkable except in HPI and below Const: Denies: fever(s) or chills Card: Denies: chest pain Resp: Denies: dyspnea GI: Denies: abdominal pain, nausea, vomiting or diarrhea Musc: Denies: extremity pain or joint pain Skin/Breast: Reports: skin pain, skin tenderness, changing lesions and non-healing lesions; Denies: rash Neuro: Denies: headache(s) PFSH ED PFSH: Medical History Atherosclerotic heart disease of [place] coronary artery with unstable angina pectoris CKD (chronic kidney disease) CHF (congestive heart failure) Acute hip pain Fall Weakness COPD with acute exacerbation Acute on chronic hypoxic respiratory failure Pneumonia CHF exacerbation SOB (shortness of breath) Urinary retention Abscess Gait instability Positive cardiac stress test Fluid overload Muscle pain Skin rash Diarrhea Bronchospasm Hyperglycemia Chronic pain Diarrhea Generalized anxiety disorder Type 2 diabetes mellitus MRSA (methicillin resistant staph aureus) culture positive Influenza A Community acquired pneumonia Vitamin B12 deficiency Diabetes type 2, uncontrolled Psychiatric care Polypharmacy Gout Hyperlipidemia Hypothyroidism Fibromyalgia Depression Chronic respiratory failure Amiodarone pulmonary toxicity Atrial fibrillation Hypercholesteremia HTN (hypertension) CAD (coronary artery disease) Last echocardiogram 08/06 with EF of 50% Stents x 3 - last in 02/2023 Major depressive disorder, recurrent severe without psychotic features Chronic pain She reports taking pain medicines and muscle relaxers for a recent back injury; she has chronic left leg pain. Surgical History History of incision and drainage Right breast abscess History of coronary artery stent placement H/O left knee surgery Hx of cholecystectomy History of hysterectomy partial H/O section History of back surgery H/O eye surgery History of carpal tunnel release H/O cardiac radiofrequency ablation Family History Mother Cancer breast Stroke Brother Heart disease Asthma Cancer prostate Sister Heart disease Social History Smoking and tobacco/nicotine status: never used tobacco/nicotine Alcohol intake: never Substance/Drug Use: never Housing: Other Details: Currently with her family Physical Exam Const: COMMON NORMALS: no acute distress, average body habitus, patient oriented x3, no limitations, healthy appearing, alert and well nourished HENMT: COMMON NORMALS: normocephalic and atraumatic HEAD & SCALP: normocephalic and atraumatic Neck/C-Spine: COMMON NORMALS: full ROM, no lymphadenopathy, supple and no meningeal signs Resp: COMMON NORMALS: normal respiratory effort, No use of accessory muscles and clear to auscultation bilaterally AUSCULTATION: clear to auscultation bilaterally Cardio: COMMON NORMALS: regular rate and regular rhythm RATE: regular rate RHYTHM: regular rhythm Extremity: COMMON NORMALS: full ROM and capillary refill normal Neuro: COMMON NORMALS: patient oriented x3 SENSORIUM/ORIENTATION: Yes alert MENINGEAL SIGNS: Yes no meningeal signs Skin: COMMON NORMALS: turgor normal NARRATIVE SKIN EXAM: Large area of induration and erythema to lateral right breast, central skin breakdown noted with no active drainage of blood or pus. Area is exquisitely tender to palpation. This does seem to spare the [place]. GENERAL SKIN EXAM: turgor normal Course Vital Signs: Vital signs: Vital Signs Temperature 98.4 F 06/04/24 15:36 Pulse Rate 81 06/04/24 19:08 Respiratory Rate 14 06/04/24 19:08 Blood Pressure 156/93 06/04/24 19:08 Pulse Oximetry 97 06/04/24 19:08 Oxygen Delivery Me thod Nasal Cannula 06/04/24 15:36 Oxygen Flow Rate 3 06/04/24 15:36 MDM - Skin/Abscess/Foreign Bdy Medicial Decision Making Patient presenting with worsening of lesion to right breast, started on Bactrim a couple of days ago but pain has severely worsened. Pain has not been controlled here in the emergency department despite IV Dilaudid, she has also been vomiting despite being given Zofran and Reglan. Her lesion was not actively draining at my time of examination, was severely indurated and did appear infectious. However CT of the chest showing inflammatory changes that were concerning for an inflammatory carcinoma, however reviewing patient's biopsy results this was negative for any malignancy. Despite this an ultrasound was also obtained and did not show any fluid collections or signs of an abscess, again showing quite a bit of cellulitis to the breast tissue. Her white count was normal, ESR slightly elevated. Lactic acid normal. Her metabolic panel was baseline compared to prior labs obtained here. I spoke with Dr. Villatoro, general surgeon, who agreed to consult the patient in the morning pending that she would be admitted to the hospital. I also spoke with Dr. Alicea, who agrees to accept the patient to the hospital tonight and start on IV antibiotics. Relayed this message to patient and family in the room, they agree and all other questions and concerns addressed. Dr. Rodríguez putting in admit orders at this time. Lab Data 06/04/24 17:29 06/04/24 17:[address] 06/04/24 17:54 IMPRESSION: 1. Prominent inflammatory changes of the right breast without discrete fluid collection. An underlying inflammatory carcinoma would be difficult to exclude. Evaluation at a dedicated breast center is recommended. Soft Tissue Ultrasound 06/04/24 20:46 IMPRESSION: 1. Soft tissue edema and skin thickening without discrete fluid collection. Follow-up evaluation at a dedicated breast center is recommended. Laboratory Results WBC 8.89 10^3/uL (3.29-11.43) 06/04/24 17: RBC 5.17 10^6/uL (3.85-5.65) 06/04/24 17: Hgb 15.00 g/dL (11.27-16.99) 06/04/24 17: Hct 47.9 % (36-47) H 06/04/24 17: MCV 92.6 fl (85-98) 06/04/24 17: MCH 29.0 pg (27-33) 06/04/24 17: MCHC 31.3 g/dL (30-55) 06/04/24 17: RDW 14.9 % (12.1-15.1) 06/04/24 17: Plt Count 276 10^3/cmm (157-399) 06/04/24 17: MPV 11.3 fL (7.4-10.4) H 06/04/24 17: Neut % (Auto) 66.6 % 06/04/24 17: Lymph % (Auto) 20.2 % 06/04/24 17: [place] % (Auto) 7.8 % 06/04/24 17: Eos % (Auto) 2.8 % 06/04/24 17: Baso % (Auto) 1.0 % 06/04/24 17: Neut # (Auto) 5.92 10^3/uL (1.8-7.7) 06/04/24 17: Lymph # (Auto) 1.8 10^3/uL (0.8-4.8) 06/04/24 17:29 [place] # (Auto) 0.7 10^3/uL (0.2-0.9) 06/04/24 17:29 Eos # (Auto) 0.3 10^3/uL (0.0-0.8) 06/04/24 17:29 Baso # (Auto) 0.1 10^3/uL (0.0-0.1) 06/04/24 17:29 Nucleated RBC % (auto) 0 % 06/04/24 17: Nucleated RBCs # 0.0 /100WBC 06/04/24 17:29 ESR 27 mm/hr (0-15) H 06/04/24 17:29 Sodium 133 mmol/L (136-145) L 06/04/24 17:29 Potassium 4.2 mmol/L (3.5-5.1) 06/04/24 17:29 Chloride 94 mmol/L (98-107) L 06/04/24 17:29 Carbon Dioxide 29 mmol/L (22-29) 06/04/24 17:29 Anion Gap 14.2 (5-19) 06/04/24 17:29 BUN 39 mg/dL (8-23) H 06/04/24 17:29 Creatinine 1.8 mg/dL (0.5-0.9) H 06/04/24 17:29 GFR Calculation 27.9 mL/min (90-130) L 06/04/24 17:29 Glucose 451 mg/dL (65-115) H 06/04/24 17:29 POC Glucose 333 mg/dL (70-110) H 06/04/24 20:03 Calculated Osmolality 305 mOsm/kg (285-295) H 06/04/24 17:29 Lactic Acid 1.8 mmol/L (0.5-2.2) 06/04/24 21:00 Lactic Acid Cancelled 06/04/24 21:00 Calcium 9.7 mg/dL (8.5-10.5) 06/04/24 17:29 C-Reactive Protein Cancelled 06/04/24 21:00 Procalcitonin Cancelled 06/04/24 21:00 All radiology interpretation(s) finalized by discharge Discharge Plan Discharge Patient Disposition: Admitted As Inpatient Clinical Impression: Cellulitis of breast Condition: Stable Coding Level of Care Code 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
[2024-06-04] MEDS: HYDROmorphone 1 mg/mL INJ 1 mL IVP (18:59)
[2024-06-04] MEDS: sodium chloride 0.9% 1,000 ML 999 ML IV (19:00)
[2024-06-04] MEDS: ondansetron 2 mg/ML SDV 2 mL 4 MG IVP ×2 (19:40→20:41)
[2024-06-04 20:06] LABS: Glucose Point of Care 333 mg/dL (70-110)
[2024-06-04] MEDS: metoclopramide 5 mg/mL SDV 2 mL 10 MG IVP ×2 (20:39→22:14)
--- NOTE | 2024-06-04 20:46 | USR_ITS ---
PROCEDURE INFORMATION: Exam: US Right Limited Joint or Other Non-Vascular Extremity Structure Exam date and time: 06/04/2024 9:32 PM Age: 68 years old Clinical indication: Swelling; Toes; Prior surgery; Surgery date: <1 month; Surgery type: 2 weeks S/P right breast biopsy, now infected, assess for abscess. Patient HX: Results of biopsy were benign per patient. ; Additional info: Ultrasound breast TECHNIQUE: Imaging protocol: US right limited joint or other nonvascular extremity structure. Real-time ultrasound with image documentation. Exam focused on the area of clinical interest. COMPARISON: CT chest wo con [id number] 06/04/2024 6:39 PM FINDINGS: Soft tissues: Soft tissue edema and skin thickening of the right breast visualized at 9:00. There is trace fluid without discrete fluid collection. US/US soft tissue/extremity [id number] IMPRESSION: 1. Soft tissue edema and skin thickening without discrete fluid collection. Follow-up evaluation at a dedicated breast center is recommended.
--- NOTE | 2024-06-04 21:34 | P.HP_ITS ---
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 She reports significant pain, fatigue, malaise, subjective fevers, chills, with purulent drainage which is foul-smelling from that location staining her shirt. She saw her primary care physician, and was started on Bactrim, without improvement. Review of Systems 2 Const: Reports: fever(s), chills, fatigue and malaise Card: Denies: chest pain Resp: Denies: dyspnea GI: Denies: abdominal pain Medications/Allergies Home Medications Medication Instructions Recorded Confirmed Last Taken Type cyanocobalamin (vitamin B-12) 1,000 mcg PO DAILY #30 tabs 02/05/22 06/03/24 02/03/24 Rx 1,000 mcg tablet (Vitamin B-12) acetaminophen 500 mg tablet 1,000 mg PO Q6H PRN Pain 05/11/22 06/03/24 02/03/24 History ondansetron HCl 4 mg tablet 4 mg PO Q8H PRN nausea and 07/28/22 06/03/24 02/03/24 Rx vomiting #30 tabs ketoconazole 2 % topical cream 1 applic topical BID #30 grams 09/06/22 06/03/24 02/03/24 Rx ketoconazole 2 % shampoo 1 applic topical Q3D 04/04/23 06/03/24 02/03/24 History nitroglycerin 0.4 mg sublingual 0.4 mg sublingual Q5M PRN Chest 05/24/23 06/03/24 02/03/24 Rx tablet (Nitrostat) Pain #30 tabs insulin syringe-needle U-100 1 mL #100 ea 06/12/23 06/03/24 02/03/24 Rx 29 gauge x 1/2 (BD Insulin Syringe) semaglutide 0.25 mg or 0.5 mg (2 0.25 mg (0.368 mL) SUBCUT Q7D #3 mL 10/11/23 06/03/24 02/03/24 Rx mg/3 mL) subcutaneous pen injector (Ozempic) allopurinol 300 mg tablet 300 mg PO DAILY #90 tabs 10/22/23 06/03/24 02/03/24 Rx apixaban 5 mg tablet 5 mg PO BID #180 tabs 10/22/23 06/03/24 02/03/24 Rx diltiazem HCl 120 mg 120 mg PO DAILY #90 caps 10/22/23 06/03/24 02/03/24 Rx capsule,extended release 24 hr levothyroxine 50 mcg tablet 50 mcg PO DAILY #90 tabs 10/22/23 06/03/24 02/03/24 Rx metoprolol tartrate 100 mg tablet 100 mg PO BID #180 tabs 10/22/23 06/03/24 02/03/24 Rx potassium chloride 20 mEq 20 meq PO BID #180 tabs 10/22/23 06/03/24 02/03/24 Rx tablet,extended release(part/cryst) cholecalciferol (vitamin D3) 50 50 mcg PO DAILY #30 caps 10/30/23 06/03/24 02/03/24 Rx mcg (2,000 unit) capsule Manual wheelchair #1 ea 12/05/23 06/03/24 02/03/24 Rx simvastatin 40 mg tablet 40 mg PO BEDTIME 12/05/23 06/03/24 02/03/24 History insulin glargine 100 unit/mL 90 unit (0.9 mL) SUBCUT BID #80 mL 12/17/23 06/03/24 02/03/24 Rx subcutaneous solution (Lantus U-100 Insulin) triamcinolone acetonide 0.1 % 1 applic topical BID #454 grams 12/17/23 06/03/24 02/03/24 Rx topical ointment bumetanide 2 mg tablet 2 mg PO DAILY #60 tabs 02/01/24 06/03/24 02/03/24 Rx dextromethorphan polistirex 30 10 ml PO Q12H #89 mL 02/01/24 06/03/24 02/03/24 Rx mg/5 mL oral susp ext.release 12hr (Robitussin ER) budesonide 0.5 mg/2 mL suspension 0.5 mg (2 mL) inhalation BID COPD 02/14/24 06/03/24 Unknown Rx for nebulization 6 months #720 mL formoterol fumarate 20 mcg/2 mL 2 ml inhalation BID copd 90 days 02/14/24 06/03/24 Unknown Rx solution for nebulization #120 mL (Perforomist) nystatin 100,000 unit/gram topical 1 applic topical BID #60 grams 02/14/24 06/03/24 Unknown Rx powder clotrimazole 1 % topical cream 1 applic topical BID 2 weeks #30 02/20/24 06/03/24 Unknown Rx grams furosemide 40 mg tablet 120 mg (3 x 40 mg) PO TID edema 02/28/24 06/03/24 Unknown Rx #270 tabs itraconazole 100 mg capsule 200 mg (2 x 100 mg) PO DAILY #6 02/28/24 06/03/24 Unknown Rx caps ostomy supplies-skin barrier 6 X #60 wafers 02/28/24 06/03/24 Unknown Rx 6 wafer (Coloplast Skin Barrier) spironolactone 25 mg tablet 25 mg PO DAILY #30 tabs 02/28/24 06/03/24 Unknown Rx clopidogrel 75 mg tablet 75 mg PO DAILY #90 tabs 03/27/24 06/03/24 Unknown Rx hydrocodone 5 mg-acetaminophen 325 1 tab PO Q6H PRN pain (scale score 04/21/24 06/03/24 Unknown Rx mg tablet 7-10) 15 days #30 tabs flash glucose scanning reader #2 ea 04/28/24 06/03/24 Unknown Rx (FreeStyle Lou 14 Day [place]) flash glucose sensor (FreeStyle #2 ea 04/28/24 06/03/24 Unknown Rx Lou 14 Day Sensor kit) pregabalin 50 mg capsule 50 mg PO BID #60 caps 04/28/24 06/03/24 Unknown Rx buspirone 10 mg tablet 10 mg PO TID #90 tabs 05/26/24 06/03/24 Unknown Rx lorazepam 1 mg tablet 1 mg PO BID PRN anxiety #60 tabs 05/26/24 06/03/24 Unknown Rx vortioxetine 10 mg tablet 10 mg PO DAILY #30 tabs 05/26/24 06/03/24 Unknown Rx (Trintellix) mupirocin 2 % topical ointment 1 applic topical TID 7 days #22 06/02/24 06/03/24 Unknown Rx grams sulfamethoxazole 800 2 tab PO BID 7 days #28 tabs 06/02/24 06/03/24 Unknown Rx mg-trimethoprim 160 mg tablet (Bactrim DS) isosorbide mononitrate 30 mg 30 mg PO DAILY #30 tabs 06/03/24 06/03/24 Unknown Rx tablet,extended release 24 hr Allergies Allergy/AdvReac Type Severity Reaction Status Date / Time morphine Allergy Severe Quit Verified 06/03/24 13:57 breathing amiodarone Allergy ALGY-Anaphy Verified 06/03/24 13:57 laxis shellfish derived AdvReac Severe Hives & Verified 06/03/24 13:57 throat swells meperidine [From Demerol] AdvReac Intermediate Made N & V Verified 06/03/24 13:57 Penicillins AdvReac Intermediate RAsh Verified 06/03/24 13:57 PFSH Acute 2 PFSH: Medical History Atherosclerotic heart disease of [place] coronary artery with unstable angina pectoris CKD (chronic kidney disease) CHF (congestive heart failure) Acute hip pain Fall Weakness COPD with acute exacerbation Acute on chronic hypoxic respiratory failure Pneumonia CHF exacerbation SOB (shortness of breath) Urinary retention Abscess Gait instability Positive cardiac stress test Fluid overload Muscle pain Skin rash Diarrhea Bronchospasm Hyperglycemia Chronic pain Diarrhea Generalized anxiety disorder Type 2 diabetes mellitus MRSA (methicillin resistant staph aureus) culture positive Influenza A Community acquired pneumonia Vitamin B12 deficiency Diabetes type 2, uncontrolled Psychiatric care Polypharmacy Gout Hyperlipidemia Hypothyroidism Fibromyalgia Depression Chronic respiratory failure Amiodarone pulmonary toxicity Atrial fibrillation Hypercholesteremia HTN (hypertension) CAD (coronary artery disease) Last echocardiogram 08/06 with EF of 50% Stents x 3 - last in 02/2023 Major depressive disorder, recurrent severe without psychotic features Chronic pain She reports taking pain medicines and muscle relaxers for a recent back injury; she has chronic left leg pain. Surgical History History of incision and drainage Right breast abscess History of coronary artery stent placement H/O left knee surgery Hx of cholecystectomy History of hysterectomy partial H/O section History of back surgery H/O eye surgery History of carpal tunnel release H/O cardiac radiofrequency ablation Family History Mother Cancer breast Stroke Brother Heart disease Asthma Cancer prostate Sister Heart disease Social History Smoking and tobacco/nicotine status: never used tobacco/nicotine Alcohol intake: never Substance/Drug Use: never Housing: Other Details: Currently with her family Vitals/I&O/Wt Last Vital Signs Temp 98.4 F 06/04/24 15:36 Pulse 81 06/04/24 19:08 Resp 14 06/04/24 19:08 BP 156/93 06/04/24 19:08 Pulse Ox 97 06/04/24 19:08 O2 Del Method Nasal Cannula 06/04/24 15:36 O2 Flow Rate 3 06/04/24 15:36 06/04/24 06/04/24 06/04/24 06:59 14:59 22:59 Intake Total 1000 / 1000 Balance 1000 / 1000 Weight last 48 hrs Weight 141.521 kg Physical Exam 2 Const: COMMON NORMALS: no acute distress and patient oriented x3 Eye: COMMON NORMALS: Equal, round and reactive pupils present Neck/C-Spine: COMMON NORMALS: no JVD Resp: COMMON NORMALS: normal respiratory effort, No retractions, No use of accessory muscles and clear to auscultation bilaterally AUSCULTATION: clear to auscultation bilaterally Cardio: COMMON NORMALS: regular rate, regular rhythm, S1 normal heart sound present and S2 normal heart sound present RATE: regular rate RHYTHM: r egular rhythm HEART SOUNDS: S1 normal heart sound present and S2 normal heart sound present GI: COMMON NORMALS: Normal to inspection, nondistended, normoactive bowel sounds present and Soft to palpation Extremity: COMMON NORMALS: no pedal edema Neuro: COMMON NORMALS: patient oriented x3, CN's II-XII intact bilaterally and moves all extremities Psych: COMMON NORMALS: mental status grossly normal Skin: NARRATIVE SKIN EXAM: Right breast, at 7 o'clock position, has open area of drainage, mucopurulent drainage, erythema is between 12 to 6 o'clock position with palpable induration, Data 06/04/24 17:29 06/04/24 17:29 Micro: Microbiology 06/04/24 21:00 Blood Culture - Preliminary Blood SPECIMEN COLLECTED A&P Assessment and plan (1) Cellulitis of right breast: (2) Atrial fibrillation: Qualifiers: Atrial fibrillation type: persistent (not longstanding) Qualified Code(s): I48.19 - Other persistent atrial fibrillation (3) Class 3 obesity with alveolar hypoventilation and body mass index (BMI) of 40.0 to 44.9 in adult: Qualifiers: Serious obesity comorbidity presence: with serious comorbidity Qualified Code(s): E66.2 - Morbid (severe) obesity with alveolar hypoventilation; Z68.41 - Body mass index [BMI] 40.0-44.9, adult (4) Benign hypertension: (5) Chronic systolic dysfunction of left ventricle: (6) CKD (chronic kidney disease): (7) MRSA (methicillin resistant staph aureus) culture positive: (8) COPD (chronic obstructive pulmonary disease): (9) Chronic restrictive lung disease: (10) Acute kidney injury: Plan Right breast cellulitis -With failure of outpatient antibiotics, Bactrim -With history of MRSA -Recent history of breast biopsy, biopsy results show benign breast parenchyma with areas of more acute and chronic inflammation/mastitis, associated fat necrosis, no atypia or malignancy is seen Plan -Continue vancomycin -Add meropenem -Cultures ordered, wound -Follow blood cultures -Ultrasound right breast -General Surgery has been consulted by ER for consideration of incision and drainage of possible abscess -Patient is DNR/DNI -Eliquis for DVT prophylaxis Acute kidney injury, creatinine 1.8, possibly secondary to Bactrim, monitor Atrial fibrillation, continue Eliquis, metoprolol CHF, continue diuresis Interstitial lung disease Attestations 2 Medical Necessity Statement*: Patient requires hospitalization, inpatient, greater than 2 midnights, for right breast cellulitis, [place] Diagnoses Cellulitis of right breast N61.0 Persistent atrial fibrillation I48.19 Atrial fibrillation type: persistent (not longstanding) Class 3 obesity with alveolar hypoventilation, serious comorbidity, and body mass index (BMI) of 40.0 to 44.9 in adult E66.2; Z68.41 Serious obesity comorbidity presence: with serious comorbidity Benign hypertension I10 Chronic systolic dysfunction of left ventricle I51.9 CKD (chronic kidney disease) N18.9 MRSA (methicillin resistant staph aureus) culture positive Z22.322 COPD (chronic obstructive pulmonary disease) J44.9 Chronic restrictive lung disease J98.4 Acute kidney injury N17.9
[2024-06-04 21:53] LABS: Lactic Sepsis W/Reflex 1.8 mmol/L (0.5-2.2)
[2024-06-04] MEDS: piperacillin-tazobactam 3.375 GM in sodium chloride 0.9% (plus) 50 ML IV (22:00)
[2024-06-04 22:03] LABS: C Reactive Protein 111.5 mg/L (0.0-4.9)
[2024-06-04 22:10] LABS: Procalcitonin 0.14 ng/mL (0-0.5)
[2024-06-04] MEDS: VANCOMYCIN ADD-Vantage 1,000 MG in 0.9% NaCl ADD-Vantage 250 ML 250 MG IV (22:14)
[2024-06-05] VITALS (11 sets, daily range): BP systolic 127–139; BP diastolic 70–79; PULSE 84–87; RESP 15–19; TEMP 36.3–36.8; O2SAT 96–98
--- NOTE | 2024-06-05 00:41 | PC.NURSE ---
SCD patient refused scds, patient was educated on purpose of them. patient still declined stating her eliquis was enough and she moved her legs well enough that they were not necessary.
[2024-06-05] MEDS: pantoprazole 40 mg SDV IVP (01:40)
[2024-06-05] MEDS: apixaban 5 mg Tablet PO (01:40)
[2024-06-05] MEDS: insulin glargine 100 units/1 mL 40 UNIT SUBCUT ×2 (02:05→11:47)
[2024-06-05 02:14] LABS: Glucose Point of Care 355 mg/dL (70-110)
[2024-06-05 05:28] LABS: Basophils # 0.1 10^3/uL (0.0-0.1); Basophils % 0.6 %; Eosinophils % 0.1 %; Hematocrit 44.3 % (36-47); Lymphocytes % 10.5 %; Mean Corpuscular HGB Conc 31.4 g/dL (30-55); Mean Corpuscular Volume 92.3 fl (85-98); Mean Platelet Volume 11.2 fL (7.4-10.4); Monocytes # 0.4 10^3/uL (0.2-0.9); Monocytes % 4.6 %; Neutrophils % 83.1 %; Nucleated Red Blood Cells % 0 %; Platelet Count 276 10^3/cmm (157-399); Red Cell Distribution Width 14.8 % (12.1-15.1); White Blood Count 9.39 10^3/uL (3.29-11.43)
[2024-06-05] MEDS: levothyroxine 50 mcg Tablet PO (05:44)
[2024-06-05] MEDS: piperacillin-tazobactam 3.375 GM in sodium chloride 0.9% (plus) 50 ML IV ×3 (05:44→22:18)
[2024-06-05 05:45] LABS: Bilirubin Urine Negative (Negative); Blood Urine Non-haemolysed trace (Negative); Glucose Urine UA 3+ (Normal); Ketones Urine Negative (Negative); Leukocyte Esterase Urine Negative (Negative); Nitrate Urine Negative (Negative); Protein Urine 1+ (Negative); Specific Gravity, Urine 1.018 (1.005-1.030); Urine Appearance Clear (CLEAR); Urine Color Yellow (Yellow); Urobilinogen Urine 0.2 mg/dL (Negative); pH Urine 5.5 (5-7)
[2024-06-05 05:51] LABS: Add Urine Microscopic? YES; Bacteria Urine 1+ /hpf; Universal Test for UA Present (0); WBC Urine 0-5 /hpf (0-5)
[2024-06-05 05:53] LABS: Alanine Aminotransferase 15 U/L (0-33); Albumin Level 3.1 g/dL (3.5-5.2); Alkaline Phosphatase 71 U/L (35-105); Anion Gap 12.4 (5-19); Aspartate Amino Transferase 9 U/L (0-32); Blood Urea Nitrogen 37 mg/dL (8-23); Calcium 9.3 mg/dL (8.5-10.5); Carbon Dioxide 29 mmol/L (22-29); Chloride 97 mmol/L (98-107); Creatinine Clr Calc Pharmacy 45.8642; Globulin 3.3 g/dL (1.3-4.6); Glomerular Filtration Rate 29.8 mL/min (90-130); Glucose 422 mg/dL (65-115); Osmolality Calculated 305 mOsm/kg (285-295); Potassium 4.4 mmol/L (3.5-5.1); Sodium 134 mmol/L (136-145); Total Bilirubin 0.2 mg/dL (0.15-1.2); Total Protein 6.4 g/dL (6.6-8.7)
[2024-06-05 06:03] LABS: Add Urine Culture? Yes; Squamous Epithelial Cell Urine 25-40 /hpf (0-5)
[2024-06-05 06:14] LABS: Estmated Average Glucose 243; Hemoglobin A1C 10.1 % (4.0-6.0)
[2024-06-05 06:31] LABS: Glucose Point of Care 388 mg/dL (70-110)
--- NOTE | 2024-06-05 07:53 | P.CONIM_ITS ---
Providers/Reason For Consult 2 Consulting Physician/Specialty*: General Surgery Reason for Consult*: Right breast mastitis Attending Physician: Jamel Alicea MD Primary Care Provider: Farhat Acosta MD History of Present Illness History of Present Illness This is a 68-year-old female who presented to the hospital with right breast mastitis and purulence coming from the surgical site of the ultrasound-guided biopsy. According to the patient she had a BI-RADS 3 lesion in the breast that got an ultrasound-guided biopsy about 2 weeks ago, after that he developed redness and purulence from the wound she presents with severe pain and purulence. Currently on anticoagulation. Review of Systems 2 General: Reports: 10 or more systems reviewed and unremarkable except in HPI and below Medications/Allergies Home Medications Medication Instructions Recorded Confirmed Last Taken Type cyanocobalamin (vitamin B-12) 1,000 mcg PO DAILY #30 tabs 02/05/22 06/03/24 02/03/24 Rx 1,000 mcg tablet (Vitamin B-12) acetaminophen 500 mg tablet 1,000 mg PO Q6H PRN Pain 05/11/22 06/03/24 02/03/24 History ondansetron HCl 4 mg tablet 4 mg PO Q8H PRN nausea and 07/28/22 06/03/24 02/03/24 Rx vomiting #30 tabs ketoconazole 2 % topical cream 1 applic topical BID #30 grams 09/06/22 06/03/24 02/03/24 Rx ketoconazole 2 % shampoo 1 applic topical Q3D 04/04/23 06/03/24 02/03/24 History nitroglycerin 0.4 mg sublingual 0.4 mg sublingual Q5M PRN Chest 05/24/23 06/03/24 02/03/24 Rx tablet (Nitrostat) Pain #30 tabs insulin syringe-needle U-100 1 mL #100 ea 06/12/23 06/03/24 02/03/24 Rx 29 gauge x 1/2 (BD Insulin Syringe) semaglutide 0.25 mg or 0.5 mg (2 0.25 mg (0.368 mL) SUBCUT Q7D #3 mL 10/11/23 06/03/24 02/03/24 Rx mg/3 mL) subcutaneous pen injector (Ozempic) allopurinol 300 mg tablet 300 mg PO DAILY #90 tabs 10/22/23 06/03/24 02/03/24 Rx apixaban 5 mg tablet 5 mg PO BID #180 tabs 10/22/23 06/03/24 02/03/24 Rx diltiazem HCl 120 mg 120 mg PO DAILY #90 caps 10/22/23 06/03/24 02/03/24 Rx capsule,extended release 24 hr levothyroxine 50 mcg tablet 50 mcg PO DAILY #90 tabs 10/22/23 06/03/24 02/03/24 Rx metoprolol tartrate 100 mg tablet 100 mg PO BID #180 tabs 10/22/23 06/03/24 02/03/24 Rx potassium chloride 20 mEq 20 meq PO BID #180 tabs 10/22/23 06/03/24 02/03/24 Rx tablet,extended release(part/cryst) cholecalciferol (vitamin D3) 50 50 mcg PO DAILY #30 caps 10/30/23 06/03/24 02/03/24 Rx mcg (2,000 unit) capsule Manual wheelchair #1 ea 12/05/23 06/03/24 02/03/24 Rx simvastatin 40 mg tablet 40 mg PO BEDTIME 12/05/23 06/03/24 02/03/24 History insulin glargine 100 unit/mL 90 unit (0.9 mL) SUBCUT BID #80 mL 12/17/23 06/03/24 02/03/24 Rx subcutaneous solution (Lantus U-100 Insulin) triamcinolone acetonide 0.1 % 1 applic topical BID #454 grams 12/17/23 06/03/24 02/03/24 Rx topical ointment bumetanide 2 mg tablet 2 mg PO DAILY #60 tabs 02/01/24 06/03/24 02/03/24 Rx dextromethorphan polistirex 30 10 ml PO Q12H #89 mL 02/01/24 06/03/24 02/03/24 Rx mg/5 mL oral susp ext.release 12hr (Robitussin ER) budesonide 0.5 mg/2 mL suspension 0.5 mg (2 mL) inhalation BID COPD 02/14/24 06/03/24 Unknown Rx for nebulization 6 months #720 mL formoterol fumarate 20 mcg/2 mL 2 ml inhalation BID copd 90 days 02/14/24 06/03/24 Unknown Rx solution for nebulization #120 mL (Perforomist) nystatin 100,000 unit/gram topical 1 applic topical BID #60 grams 02/14/24 06/03/24 Unknown Rx powder clotrimazole 1 % topical cream 1 applic topical BID 2 weeks #30 02/20/24 06/03/24 Unknown Rx grams furosemide 40 mg tablet 120 mg (3 x 40 mg) PO TID edema 02/28/24 06/03/24 Unknown Rx #270 tabs itraconazole 100 mg capsule 200 mg (2 x 100 mg) PO DAILY #6 02/28/24 06/03/24 Unknown Rx caps ostomy supplies-skin barrier 6 X #60 wafers 02/28/24 06/03/24 Unknown Rx 6 wafer (Coloplast Skin Barrier) spironolactone 25 mg tablet 25 mg PO DAILY #30 tabs 02/28/24 06/03/24 Unknown Rx clopidogrel 75 mg tablet 75 mg PO DAILY #90 tabs 03/27/24 06/03/24 Unknown Rx hydrocodone 5 mg-acetaminophen 325 1 tab PO Q6H PRN pain (scale score 04/21/24 06/03/24 Unknown Rx mg tablet 7-10) 15 days #30 tabs flash glucose scanning reader #2 ea 04/28/24 06/03/24 Unknown Rx (FreeStyle Lou 14 Day [place]) flash glucose sensor (FreeStyle #2 ea 04/28/24 06/03/24 Unknown Rx Lou 14 Day Sensor kit) pregabalin 50 mg capsule 50 mg PO BID #60 caps 04/28/24 06/03/24 Unknown Rx buspirone 10 mg tablet 10 mg PO TID #90 tabs 05/26/24 06/03/24 Unknown Rx lorazepam 1 mg tablet 1 mg PO BID PRN anxiety #60 tabs 05/26/24 06/03/24 Unknown Rx vortioxetine 10 mg tablet 10 mg PO DAILY #30 tabs 05/26/24 06/03/24 Unknown Rx (Trintellix) mupirocin 2 % topical ointment 1 applic topical TID 7 days #22 06/02/24 06/03/24 Unknown Rx grams sulfamethoxazole 800 2 tab PO BID 7 days #28 tabs 06/02/24 06/03/24 Unknown Rx mg-trimethoprim 160 mg tablet (Bactrim DS) isosorbide mononitrate 30 mg 30 mg PO DAILY #30 tabs 06/03/24 06/03/24 Unknown Rx tablet,extended release 24 hr Allergies Allergy/AdvReac Type Severity Reaction Status Date / Time morphine Allergy Severe Quit Verified 06/03/24 13:57 breathing amiodarone Allergy ALGY-Anaphy Verified 06/03/24 13:57 laxis shellfish derived AdvReac Severe Hives & Verified 06/03/24 13:57 throat swells meperidine [From Demerol] AdvReac Intermediate Made N & V Verified 06/03/24 13:57 Penicillins AdvReac Intermediate RAsh Verified 06/03/24 13:57 Current Medications Generic Name Dose Route Start Last Admin Trade Name Freq PRN Reason Stop Dose Admin Apixaban 5 mg 06/05/24 00:10 06/05/24 01:40 Apixaban 5 Mg Tablet PO 5 mg BID ANJU Administration Piperacillin Sod/Tazobactam 50 mls @ 12.5 mls/hr 06/05/24 05:45 06/05/24 05:44 Sod 3.375 gm/ Sodium Chloride IV 12.5 mls/hr Q8H ANJU Administration Protocol Insulin Glargine 40 unit 06/05/24 00:10 06/05/24 02:05 Insulin Glargine 100 Units/1 Ml SUBCUT 40 unit Q12H ANJU Administration Levothyroxine Sodium 50 mcg 06/05/24 06:30 06/05/24 05:44 Levothyroxine 50 Mcg Tablet PO 50 mcg 0630 ANJU Administration Pantoprazole Sodium 40 mg 06/05/24 00:10 06/05/24 01:40 Pantoprazole 40 Mg Sdv IVP 40 mg Q24H ANJU Administration PFSH Acute 2 PFSH: Medical History Atherosclerotic heart disease of [place] coronary artery with unstable angina pectoris CKD (chronic kidney disease) CHF (congestive heart failure) Acute hip pain Fall Weakness COPD with acute exacerbation Acute on chronic hypoxic respiratory failure Pneumonia CHF exacerbation SOB (shortness of breath) Urinary retention Abscess Gait instability Positive cardiac stress test Fluid overload Muscle pain Skin rash Diarrhea Bronchospasm Hyperglycemia Chronic pain Diarrhea Generalized anxiety disorder Type 2 diabetes mellitus MRSA (methicillin resistant staph aureus) culture positive Influenza A Community acquired pneumonia Vitamin B12 deficiency Diabetes type 2, uncontrolled Psychiatric care Polypharmacy Gout Hyperlipidemia Hypothyroidism Fibromyalgia Depression Chronic respiratory failure Amiodarone pulmonary toxicity Atrial fibrillation Hypercholesteremia HTN (hypertension) CAD (coronary artery disease) Last echocardiogram 08/06 with EF of 50% Stents x 3 - last in 02/2023 Major depressive disorder, recurrent severe without psychotic features Chronic pain She reports taking pain medicines and muscle relaxers for a recent back injury; she has chronic left leg pain. Surgical History History of incision and drainage Right breast abscess History of coronary artery stent placement H/O left knee surgery Hx of cholecystectomy History of hysterectomy partial H/O section History of back surgery H/O eye surgery History of carpal tunnel release H/O cardiac radiofrequency ablation Family History Mother Cancer breast Stroke Brother Heart disease Asthma Cancer prostate Sister Heart disease Social History Smoking and tobacco/nicotine status: never used tobacco/nicotine Alcohol intake: never Substance/Drug Use: never Housing: Other Details: Currently with her family Vitals/I&O/Wt Last Vital Signs Temp 97.8 F 06/05/24 04:00 Pulse 87 06/05/24 06:00 Resp 18 06/05/24 04:00 BP 134/76 06/05/24 04:00 Pulse Ox 96 06/05/24 06:28 O2 Del Method Nasal Cannula 06/05/24 06:28 O2 Flow Rate 2 06/05/24 06:28 06/04/24 06/05/24 06/05/24 22:59 06:59 14:59 Intake Total 1050 / 1050 250 / 1300 Output Total 1300 / 1300 Balance 1050 / 1050 -1050 / 0 Weight last 48 hrs Weight 301 lb 6 oz Weight 296 lb 8 oz Weight 312 lb Physical Exam 2 Chest: OTHER: Right breast is erythematous and extremely tender to palpation, there is some purulent fluid draining from the biopsy site. Data 06/05/24 05:02 06/05/24 05:02 Micro: Microbiology 06/04/24 21:35 Blood Culture - Preliminary Blood SPECIMEN COLLECTED 06/04/24 21:00 Blood Culture - Preliminary Blood SPECIMEN COLLECTED A&P Assessment and plan (1) Mastitis of right breast unrelated to of : Plan After complete history physical examination and review of all available clinical data the following is my assessment. Clinical picture is consistent with my Mastitis and surgical site infection due to previous ultrasound-guided biopsy. Patient will require an I&D and also a biopsy in the OR these metastatic has been consistent now for some time and imaging studies show concern for the possibility of underlying malignancy. I discussed all recent benefits of the procedure with the patient including the risks of bleeding, infection, need for additional interventions, poor cosmetic outcome, poor wound healing, lack of pathological diagnosis, missed cancer. She shows understanding agrees to proceed to the OR. We will plan the procedure for as patient had her last dose of Eliquis yesterday night. She should be n.p.o. at midnight on Sunday. In the interim we will continue antibiotic therapy. Coding Level of Care Code Acute Code for [facility] Fwd Diagnoses Mastitis of right breast unrelated to of N61.0
[2024-06-05] MEDS: budesonide 0.5 mg/2 mL Neb INHALATION ×2 (08:41→21:07)
[2024-06-05] MEDS: insulin lispro 100 unit/1 mL SUBCUT ×4 (09:05→22:20)
[2024-06-05] MEDS: spironolactone 25 mg Tablet PO (09:07)
[2024-06-05] MEDS: metoprolol tartrate 50 mg Tablet 100 MG PO ×2 (09:07→17:52)
[2024-06-05] MEDS: isosorbide mononitrate ER 30 mg Tablet PO (09:07)
[2024-06-05] MEDS: pregabalin 50 mg Capsule PO ×2 (09:07→17:52)
[2024-06-05] MEDS: allopurinol 300 mg Tablet PO (09:07)
[2024-06-05] MEDS: clopidogrel 75 mg Tablet PO (09:07)
[2024-06-05] MEDS: BuSPIRONE 10 mg Tablet PO ×3 (09:07→22:19)
[2024-06-05] MEDS: dilTIAZem ER (24HR) 120 mg Capsule PO (09:07)
[2024-06-05] MEDS: nystatin powder 15 gm Btl 1 APPLIC TOPICAL ×2 (09:07→17:52)
[2024-06-05 11:41] LABS: Glucose Point of Care 373 mg/dL (70-110)
[2024-06-05] MEDS: acetaminophen 325 mg Tablet 650 MG PO (11:51)
--- NOTE | 2024-06-05 13:58 | P.PN_ITS ---
Subjective 2 Subjective: Seen this morning. Patient resting comfortably in bed. Plan for surgical debridement and biopsy upcoming Sunday. Vitals/I&O/Wt Last Vital Signs Temp 98.3 F 06/05/24 12:00 Pulse 85 06/05/24 12:00 Resp 15 06/05/24 12:00 BP 139/79 06/05/24 12:00 Pulse Ox 98 06/05/24 12:00 O2 Del Method Nasal Cannula 06/05/24 12:00 O2 Flow Rate 3 06/05/24 08:41 06/04/24 06/05/24 06/05/24 22:59 06:59 14:59 Intake Total 1050 / 1050 250 / 1300 650 / 650 Output Total 1300 / 1300 Balance 1050 / 1050 -1050 / 0 650 / 650 Weight last 48 hrs Weight 136.701 kg Weight 134.49 kg Weight 141.521 kg Physical Exam 2 Const: COMMON NORMALS: no acute distress and patient oriented x3 Eye: COMMON NORMALS: Equal, round and reactive pupils present PUPIL: Yes Equal, round and reactive pupils present Neck/C-Spine: COMMON NORMALS: no JVD Resp: COMMON NORMALS: normal respiratory effort, No retractions, No use of accessory muscles and clear to auscultation bilaterally AUSCULTATION: clear to auscultation bilaterally Cardio: COMMON NORMALS: no JVD, regular rate, regular rhythm, S1 normal heart sound present and S2 normal heart sound present RATE: regular rate RHYTHM: regular rhythm HEART SOUNDS: S1 normal heart sound present and S2 normal heart sound present GI: COMMON NORMALS: Normal to inspection, nondistended, normoactive bowel sounds present and Soft to palpation PALPATION: Yes Soft to palpation Extremity: COMMON NORMALS: no pedal edema Neuro: COMMON NORMALS: patient oriented x3, CN's II-XII intact bilaterally and moves all extremities Psych: COMMON NORMALS: mental status grossly normal Skin: NARRATIVE SKIN EXAM: Right breast, at 7 o'clock position, has open area of drainage, mucopurulent drainage, erythema is between 12 to 6 o'clock position with palpable induration, Data 06/05/24 05:02 06/05/24 05:02 Micro: Microbiology 06/04/24 17:54 Wound Culture - Preliminary Bone 06/04/24 21:35 Blood Culture - Preliminary Blood SPECIMEN COLLECTED 06/04/24 21:00 Blood Culture - Preliminary Blood SPECIMEN COLLECTED A&P Assessment and plan (1) Cellulitis of right breast: (2) Atrial fibrillation: Qualifiers: Atrial fibrillation type: persistent (not longstanding) Qualified Code(s): I48.19 - Other persistent atrial fibrillation (3) Class 3 obesity with alveolar hypoventilation and body mass index (BMI) of 40.0 to 44.9 in adult: Qualifiers: Serious obesity comorbidity presence: with serious comorbidity Qualified Code(s): E66.2 - Morbid (severe) obesity with alveolar hypoventilation; Z68.41 - Body mass index [BMI] 40.0-44.9, adult (4) Benign hypertension: (5) Chronic systolic dysfunction of left ventricle: (6) CKD (chronic kidney disease): (7) MRSA (methicillin resistant staph aureus) culture positive: (8) COPD (chronic obstructive pulmonary disease): (9) Chronic restrictive lung disease: (10) Acute kidney injury: Plan Right breast cellulitis -With failure of outpatient antibiotics, Bactrim -With history of MRSA -Recent history of breast biopsy, biopsy results show benign breast parenchyma with areas of more acute and chronic inflammation/mastitis, associated fat necrosis, no atypia or malignancy is seen Plan -Continue vancomycin -Add meropenem -Cultures ordered, wound -Follow blood cultures -Ultrasound right breast -General Surgery has been consulted by ER for consideration of incision and drainage of possible abscess -Patient is DNR/DNI -Eliquis for DVT prophylaxis Acute kidney injury, creatinine 1.8, possibly secondary to Bactrim, monitor Atrial fibrillation, continue Eliquis, metoprolol CHF, continue diuresis Interstitial lung disease 06/05/2024 -Continue to hold Eliquis at this time ? Appreciate general surgery consult. ? Plan for surgical debridement with biopsies upcoming Sunday. ? GEORGES: Creatinine improving 1.7. Continue to hold Bactrim. ? Continue on IV Zosyn at this time. Attestations 2 Medical Necessity Statement*: Patient requires IV antibiotics at this time for mastitis and will require continued hospitalization for drainage of possible abscess on Sunday. Diagnoses Cellulitis of right breast N61.0 Persistent atrial fibrillation I48.19 Atrial fibrillation type: persistent (not longstanding) Class 3 obesity with alveolar hypoventilation, serious comorbidity, and body mass index (BMI) of 40.0 to 44.9 in adult E66.2; Z68.41 Serious obesity comorbidity presence: with serious comorbidity Benign hypertension I10 Chronic systolic dysfunction of left ventricle I51.9 CKD (chronic kidney disease) N18.9 MRSA (methicillin resistant staph aureus) culture positive Z22.322 COPD (chronic obstructive pulmonary disease) J44.9 Chronic restrictive lung disease J98.4 Acute kidney injury N17.9
[2024-06-05 16:44] LABS: Glucose Point of Care 181 mg/dL (70-110)
[2024-06-05 20:33] LABS: Glucose Point of Care 234 mg/dL (70-110)
[2024-06-05] MEDS: atorvastatin 40 mg Tablet 20 MG PO (22:19)
[2024-06-06] VITALS (10 sets, daily range): BP systolic 117–150; BP diastolic 67–80; PULSE 78–92; RESP 15–18; TEMP 36.2–36.9; O2SAT 94–98
[2024-06-06] MEDS: pantoprazole 40 mg SDV IVP (00:53)
[2024-06-06] MEDS: insulin glargine 100 units/1 mL 40 UNIT SUBCUT ×2 (00:53→13:07)
[2024-06-06 01:11] LABS: Glucose Point of Care 137 mg/dL (70-110)
[2024-06-06] MEDS: metoclopramide 5 mg/mL SDV 2 mL IVP (01:54)
[2024-06-06 05:53] LABS: Basophils # 0.1 10^3/uL (0.0-0.1); Basophils % 0.8 %; Eosinophils # 0.2 10^3/uL (0.0-0.8); Eosinophils % 2.3 %; Hematocrit 43.2 % (36-47); Lymphocytes # 1.7 10^3/uL (0.8-4.8); Lymphocytes % 16.4 %; Mean Corpuscular HGB Conc 31.5 g/dL (30-55); Mean Corpuscular Hemoglobin 29.2 pg (27-33); Mean Corpuscular Volume 92.7 fl (85-98); Mean Platelet Volume 10.7 fL (7.4-10.4); Monocytes % 9.9 %; Neutrophils # 7.36 10^3/uL (1.8-7.7); Neutrophils % 69.8 %; Nucleated Red Blood Cells % 0 %; Platelet Count 267 10^3/cmm (157-399); Red Blood Count 4.66 10^6/uL (3.85-5.65); White Blood Count 10.53 10^3/uL (3.29-11.43)
[2024-06-06] MEDS: piperacillin-tazobactam 3.375 GM in sodium chloride 0.9% (plus) 50 ML IV ×3 (06:09→22:01)
[2024-06-06] MEDS: levothyroxine 50 mcg Tablet PO (06:10)
[2024-06-06 06:14] LABS: Anion Gap 13.8 (5-19); Blood Urea Nitrogen 35 mg/dL (8-23); Calcium 9.2 mg/dL (8.5-10.5); Carbon Dioxide 29 mmol/L (22-29); Chloride 99 mmol/L (98-107); Creatinine Clr Calc Pharmacy 41.0364; Glomerular Filtration Rate 26.2 mL/min (90-130); Glucose 191 mg/dL (65-115); Osmolality Calculated 299 mOsm/kg (285-295); Potassium 3.8 mmol/L (3.5-5.1); Sodium 138 mmol/L (136-145)
[2024-06-06 06:16] LABS: Glucose Point of Care 193 mg/dL (70-110)
[2024-06-06] MEDS: albuterol 2.5 mg/3 mL Neb INHALATION (07:29)
[2024-06-06] MEDS: budesonide 0.5 mg/2 mL Neb INHALATION ×2 (07:29→20:41)
--- NOTE | 2024-06-06 08:32 | P.PN_ITS ---
Subjective 2 Subjective: Patient progression has been good mastitis is improving. Less drainage from the area of biopsy. Vitals/I&O/Wt Last Vital Signs Temp 98.2 F 06/06/24 07:25 Pulse 88 06/06/24 07:30 Resp 18 06/06/24 07:30 BP 150/76 06/06/24 07:25 Pulse Ox 94 06/06/24 07:30 O2 Del Method Nasal Cannula 06/06/24 07:30 O2 Flow Rate 3 06/06/24 07:30 06/05/24 06/06/24 06/06/24 22:59 06:59 14:59 Intake Total 530 / 1180 410 / 1590 240 / 240 Output Total 1600 / 1600 Balance 530 / 1180 -1190 / -10 240 / 240 Weight last 48 hrs Weight 301 lb 9.6 oz Weight 301 lb 6 oz Weight 296 lb 8 oz Weight 312 lb Physical Exam 2 Chest: OTHER: Improve mastitis of the right breast, there is minimal drainage from the area of biopsy, no skin necrosis Data 06/06/24 05:19 06/06/24 05:19 Micro: Microbiology 06/04/24 21:35 Blood Culture - Preliminary Blood NEGATIVE TO DATE 06/04/24 21:00 Blood Culture - Preliminary Blood NEGATIVE TO DATE 06/04/24 17:54 Wound Culture - Preliminary Bone A&P Assessment and plan (1) Mastitis of right breast unrelated to of : Plan Patient showing adequate progression, plan is to proceed to the OR tomorrow for an I&D, debridement and biopsy of right breast. -NPO after midnight Attestations 2 Medical Necessity Statement*: Patient will require 24 to 48 hours of hospital stay for management of right breast abscess. Coding Level of Care Code Acute Code for Chg Fwd Diagnoses Mastitis of right breast unrelated to of N61.0
--- NOTE | 2024-06-06 09:23 | PC.SOCIAL ---
IMM Updated Updated pt on IMM. No questions voiced. Provided pt a copy. Initialed, dated, & timed a copy & placed in chart.
[2024-06-06] MEDS: insulin lispro 100 unit/1 mL SUBCUT ×4 (09:26→21:59)
[2024-06-06] MEDS: nystatin powder 15 gm Btl 1 APPLIC TOPICAL ×2 (09:27→17:25)
[2024-06-06] MEDS: clopidogrel 75 mg Tablet PO (09:27)
[2024-06-06] MEDS: pregabalin 50 mg Capsule PO ×2 (09:27→17:24)
[2024-06-06] MEDS: spironolactone 25 mg Tablet PO (09:27)
[2024-06-06] MEDS: allopurinol 300 mg Tablet PO (09:27)
[2024-06-06] MEDS: dilTIAZem ER (24HR) 120 mg Capsule PO (09:27)
[2024-06-06] MEDS: isosorbide mononitrate ER 30 mg Tablet PO (09:27)
[2024-06-06] MEDS: BuSPIRONE 10 mg Tablet PO ×3 (09:27→22:00)
[2024-06-06] MEDS: metoprolol tartrate 50 mg Tablet 100 MG PO ×2 (09:27→17:24)
[2024-06-06 10:49] LABS: Glucose Point of Care 290 mg/dL (70-110)
--- NOTE | 2024-06-06 10:59 | P.PN_ITS ---
Subjective 2 Subjective: seen today no acute events overnight Vitals/I&O/Wt Last Vital Signs Temp 98.2 F 06/06/24 07:25 Pulse 88 06/06/24 07:30 Resp 18 06/06/24 07:30 BP 150/76 06/06/24 07:25 Pulse Ox 94 06/06/24 07:30 O2 Del Method Nasal Cannula 06/06/24 07:30 O2 Flow Rate 3 06/06/24 07:30 06/05/24 06/06/24 06/06/24 22:59 06:59 14:59 Intake Total 530 / 1180 410 / 1590 290 / 290 Output Total 1600 / 1600 Balance 530 / 1180 -1190 / -10 290 / 290 Weight last 48 hrs Weight 136.803 kg Weight 136.701 kg Weight 134.49 kg Weight 141.521 kg Physical Exam 2 Const: COMMON NORMALS: no acute distress and patient oriented x3 Eye: COMMON NORMALS: Equal, round and reactive pupils present PUPIL: Yes Equal, round and reactive pupils present Neck/C-Spine: COMMON NORMALS: no JVD Resp: COMMON NORMALS: normal respiratory effort, No retractions, No use of accessory muscles and clear to auscultation bilaterally AUSCULTATION: clear to auscultation bilaterally Cardio: COMMON NORMALS: no JVD, regular rate, regular rhythm, S1 normal heart sound present and S2 normal heart sound present RATE: regular rate RHYTHM: regular rhythm HEART SOUNDS: S1 normal heart sound present and S2 normal heart sound present GI: COMMON NORMALS: Normal to inspection, nondistended, normoactive bowel sounds present and Soft to palpation PALPATION: Yes Soft to palpation Extremity: COMMON NORMALS: no pedal edema Neuro: COMMON NORMALS: patient oriented x3, CN's II-XII intact bilaterally and moves all extremities Psych: COMMON NORMALS: mental status grossly normal Skin: NARRATIVE SKIN EXAM: Right breast, at 7 o'clock position, has open area of drainage, mucopurulent drainage, erythema is between 12 to 6 o'clock position with palpable induration, slight improvement Data 06/06/24 05:19 06/06/24 05:19 Micro: Microbiology 06/05/24 04:35 Urine Culture - Preliminary Urine,Clean Catch 06/04/24 21:35 Blood Culture - Preliminary Blood NEGATIVE TO DATE 06/04/24 21:00 Blood Culture - Preliminary Blood NEGATIVE TO DATE 06/04/24 17:54 Wound Culture - Preliminary Bone A&P Assessment and plan (1) Cellulitis of right breast: (2) Atrial fibrillation: Qualifiers: Atrial fibrillation type: persistent (not longstanding) Qualified Code(s): I48.19 - Other persistent atrial fibrillation (3) Class 3 obesity with alveolar hypoventilation and body mass index (BMI) of 40.0 to 44.9 in adult: Qualifiers: Serious obesity comorbidity presence: with serious comorbidity Qualified Code(s): E66.2 - Morbid (severe) obesity with alveolar hypoventilation; Z68.41 - Body mass index [BMI] 40.0-44.9, adult (4) Benign hypertension: (5) Chronic systolic dysfunction of left ventricle: (6) CKD (chronic kidney disease): (7) MRSA (methicillin resistant staph aureus) culture positive: (8) COPD (chronic obstructive pulmonary disease): (9) Chronic restrictive lung disease: (10) Acute kidney injury: Plan Right breast cellulitis -With failure of outpatient antibiotics, Bactrim -With history of MRSA -Recent history of breast biopsy, biopsy results show benign breast parenchyma with areas of more acute and chronic inflammation/mastitis, associated fat necrosis, no atypia or malignancy is seen Plan -Continue vancomycin -Add meropenem -Cultures ordered, wound -Follow blood cultures -Ultrasound right breast -General Surgery has been consulted by ER for consideration of incision and drainage of possible abscess -Patient is DNR/DNI -Eliquis for DVT prophylaxis Acute kidney injury, creatinine 1.8, possibly secondary to Bactrim, monitor Atrial fibrillation, continue Eliquis, metoprolol CHF, continue diuresis Interstitial lung disease 06/06/2024 -Continue to hold Eliquis at this time ? Appreciate general surgery consult. ? Plan for surgical debridement with biopsies in AM ? GEORGES: Creatinine 1.8. Continue to hold Bactrim. ? Continue on IV Zosyn at this time. Attestations 2 Medical Necessity Statement*: Patient requires IV antibiotics at this time for mastitis and will require continued hospitalization for drainage of possible abscess on Sunday. Diagnoses Cellulitis of right breast N61.0 Persistent atrial fibrillation I48.19 Atrial fibrillation type: persistent (not longstanding) Class 3 obesity with alveolar hypoventilation, serious comorbidity, and body mass index (BMI) of 40.0 to 44.9 in adult E66.2; Z68.41 Serious obesity comorbidity presence: with serious comorbidity Benign hypertension I10 Chronic systolic dysfunction of left ventricle I51.9 CKD (chronic kidney disease) N18.9 MRSA (methicillin resistant staph aureus) culture positive Z22.322 COPD (chronic obstructive pulmonary disease) J44.9 Chronic restrictive lung disease J98.4 Acute kidney injury N17.9
--- NOTE | 2024-06-06 15:19 | PHA.VACGOAL ---
Vancomycin Goal - Goal Vancomycin Goal:: 10-15 mg/L Vancomycin Indication:: SSTI - Therapy Current therapy:: Pip/Tazo Day of therpy:: Day [1]of [] . Actual body weight (kg): 136.803 kg - Data Labs: WBC 10.53 10^3/uL (3.29-11.43) 06/06/24 05:19 RBC 4.66 10^6/uL (3.85-5.65) 06/06/24 05:19 Hgb 13.60 g/dL (11.27-16.99) 06/06/24 05:19 Hct 43.2 % (36-47) 06/06/24 05:19 MCV 92.7 fl (85-98) 06/06/24 05:19 MCH 29.2 pg (27-33) 06/06/24 05:19 MCHC 31.5 g/dL (30-55) 06/06/24 05:19 RDW 15.0 % (12.1-15.1) 06/06/24 05:19 Sodium 138 mmol/L (136-145) 06/06/24 05:19 Potassium 3.8 mmol/L (3.5-5.1) 06/06/24 05:19 Chloride 99 mmol/L (98-107) 06/06/24 05:19 Carbon Dioxide 29 mmol/L (22-29) 06/06/24 05:19 Anion Gap 13.8 (5-19) 06/06/24 05:19 BUN 35 mg/dL (8-23) H 06/06/24 05:19 Creatinine 1.9 mg/dL (0.5-0.9) H 06/06/24 05:19 GFR Calculation 26.2 mL/min (90-130) L 06/06/24 05:19 Treatment plan:: new consult Regimen:: New start vancomycin for cellulitis. Load dose of 2000 mg ordered. Maintenance dose of 1250 mg q24h started due to population based pharmacokinetic Nomogram.
[2024-06-06 16:45] LABS: Glucose Point of Care 352 mg/dL (70-110)
[2024-06-06] MEDS: vancomycin 2,000 MG/400 ML PIGGYBACK 200 MG IV (17:24)
[2024-06-06 20:31] LABS: Glucose Point of Care 293 mg/dL (70-110)
[2024-06-06] MEDS: FUROsemide 40 mg Tablet 120 MG PO (22:00)
[2024-06-06] MEDS: atorvastatin 40 mg Tablet 20 MG PO (22:00)
[2024-06-07] VITALS (23 sets, daily range): BP systolic 108–153; BP diastolic 59–86; PULSE 82–97; RESP 14–18; TEMP 36.5–36.8; O2SAT 91–98
[2024-06-07] MEDS: insulin glargine 100 units/1 mL 40 UNIT SUBCUT ×2 (02:05→12:04)
[2024-06-07] MEDS: pantoprazole 40 mg SDV IVP (02:06)
[2024-06-07 02:18] LABS: Glucose Point of Care 289 mg/dL (70-110)
[2024-06-07] MEDS: LORazepam 1 mg Tablet PO (02:24)
[2024-06-07 05:50] LABS: Basophils # 0.1 10^3/uL (0.0-0.1); Basophils % 0.9 %; Eosinophils # 0.3 10^3/uL (0.0-0.8); Eosinophils % 2.9 %; Hematocrit 42.6 % (36-47); Lymphocytes % 22.6 %; Mean Corpuscular HGB Conc 32.4 g/dL (30-55); Mean Corpuscular Hemoglobin 29.1 pg (27-33); Mean Corpuscular Volume 89.9 fl (85-98); Mean Platelet Volume 11.1 fL (7.4-10.4); Monocytes # 0.8 10^3/uL (0.2-0.9); Monocytes % 9.3 %; Neutrophils # 5.56 10^3/uL (1.8-7.7); Neutrophils % 62.8 %; Nucleated Red Blood Cells % 0 %; Platelet Count 321 10^3/cmm (157-399); Red Blood Count 4.74 10^6/uL (3.85-5.65); Red Cell Distribution Width 14.8 % (12.1-15.1); White Blood Count 8.85 10^3/uL (3.29-11.43)
[2024-06-07] MEDS: piperacillin-tazobactam 3.375 GM in sodium chloride 0.9% (plus) 50 ML IV ×3 (06:02→23:36)
[2024-06-07] MEDS: levothyroxine 50 mcg Tablet PO (06:02)
[2024-06-07 06:14] LABS: Glucose Point of Care 259 mg/dL (70-110)
--- NOTE | 2024-06-07 06:19 | P.HPUD_ITS ---
Surgery/Procedure H&P Update DATE OF PROCEDURE: June 07, 2024 DATE H&P PERFORMED: 06/05/24 H&P UPDATE INFORMATION: I have reviewed H&P completed within last 30 days, I have examined patient prior to procedure, No changes to prior documentation and H&P is in [facility] [place] EMR on date indicated PLANNED PROCEDURE: Operation Date: 06/07/24 08:00 Proposed Procedures p Incision And Drainage right breast, debridement, biopsy(Right) - Janes Villatoro MD
[2024-06-07] MEDS: sodium chloride 0.9% 1,000 ML 30 ML IV (07:15)
--- NOTE | 2024-06-07 07:37 | P.ANESASSM_ITS ---
Pre-Anesthetic Assessment Height/Weight: Height 5 ft 8 in Weight 301 lb 3.2 oz Temp Pulse Resp BP Pulse Ox O2 Del Method O2 Flow Rate 98.3 F 86 17 118/59 96 Nasal Cannula 3 06/07/24 07:00 06/07/24 07:00 06/07/24 07:00 06/07/24 07:00 06/07/24 07:00 06/07/24 07:00 06/07/24 07:00 Preop Diagnosis: Cellulitis of her right breast Operation Date: 06/07/24 08:00 Proposed Procedures p Incision And Drainage right breast, debridement, biopsy(Right) - Janes Villatoro MD Was Beta Chava taken within 24 hours: Yes Was Clonidine taken within 24 hours: N/A Last intake: Intake Last Liquid Date 06/06/24 Last Liquid Time 23:58 Last Solid Date 06/06/24 Last Solid Time 18:00 Social No alcohol and No tobacco Exam alert, oriented x 3 and regular rate & rhythm diminished bilaterally Airway Submandibular: within normal limits Cervical ROM: within normal limits Mallampati: Class III Dentition: false Anesthetic Plan ASA status: 3 Anesthesia: General Other: Patient was initially admitted on 06/04/2024 for cellulitis of the right breast Hx of PONV NPO since yesterday evening Prior history of CKD COPD on 3L O2 Type 2 diabetes CAD, s/p stents x 3 in 2022. Last echo showing EF 45 %. PA pressure 38 Labs reviewed and acceptable for procedure. BS 259 EKG showing atrial flutter, this appears to be patient's baseline on multiple previous EKGs Plan for general anesthesia Medications/Allergies Home Medications Medication Instructions Recorded Confirmed Last Taken Type cyanocobalamin (vitamin B-12) 1,000 mcg PO DAILY #30 tabs 02/05/22 06/05/24 06/04/24 Rx 1,000 mcg tablet (Vitamin B-12) acetaminophen 500 mg tablet 1,000 mg PO Q6H PRN Pain 05/11/22 06/05/24 02/03/24 History ketoconazole 2 % shampoo 1 applic topical Q3D PRN scalp 04/04/23 06/05/24 02/03/24 History irritation nitroglycerin 0.4 mg sublingual 0.4 mg sublingual Q5M PRN Chest 05/24/23 06/05/24 02/03/24 Rx tablet (Nitrostat) Pain #30 tabs insulin syringe-needle U-100 1 mL #100 ea 06/12/23 06/05/24 02/03/24 Rx 29 gauge x 1/2 (BD Insulin Syringe) semaglutide 0.25 mg or 0.5 mg (2 0.25 mg (0.368 mL) SUBCUT Q7D #3 mL 10/11/23 06/05/24 06/02/24 Rx mg/3 mL) subcutaneous pen injector (Ozempic) allopurinol 300 mg tablet 300 mg PO DAILY #90 tabs 10/22/23 06/05/24 06/04/24 Rx apixaban 5 mg tablet 5 mg PO BID #180 tabs 10/22/23 06/05/24 06/04/24 Rx diltiazem HCl 120 mg 120 mg PO DAILY #90 caps 10/22/23 06/05/24 06/04/24 Rx capsule,extended release 24 hr levothyroxine 50 mcg tablet 50 mcg PO DAILY #90 tabs 10/22/23 06/05/24 06/04/24 Rx metoprolol tartrate 100 mg tablet 100 mg PO BID #180 tabs 10/22/23 06/05/24 06/04/24 Rx potassium chloride 20 mEq 20 meq PO BID #180 tabs 10/22/23 06/05/24 06/04/24 Rx tablet,extended release(part/cryst) cholecalciferol (vitamin D3) 50 50 mcg PO DAILY #30 caps 10/30/23 06/05/24 06/04/24 Rx mcg (2,000 unit) capsule Manual wheelchair #1 ea 12/05/23 06/05/24 02/03/24 Rx insulin glargine 100 unit/mL 90 unit (0.9 mL) SUBCUT BID #80 mL 12/17/23 06/05/24 06/04/24 Rx subcutaneous solution (Lantus U-100 Insulin) triamcinolone acetonide 0.1 % 1 applic topical BID #454 grams 12/17/23 06/05/24 02/03/24 Rx topical ointment bumetanide 2 mg tablet 2 mg PO DAILY #60 tabs 02/01/24 06/05/24 06/04/24 Rx dextromethorphan polistirex 30 10 ml PO Q12H #89 mL 02/01/24 06/05/24 02/03/24 Rx mg/5 mL oral susp ext.release 12hr (Robitussin ER) budesonide 0.5 mg/2 mL suspension 0.5 mg (2 mL) inhalation BID COPD 02/14/24 06/05/24 06/04/24 Rx for nebulization 6 months #720 mL formoterol fumarate 20 mcg/2 mL 2 ml inhalation BID copd 90 days 02/14/24 06/05/24 06/04/24 Rx solution for nebulization #120 mL (Perforomist) nystatin 100,000 unit/gram topical 1 applic topical BID #60 grams 02/14/24 06/05/24 Unknown Rx powder clotrimazole 1 % topical cream 1 applic topical BID 2 weeks #30 02/20/24 06/05/24 06/04/24 Rx grams furosemide 40 mg tablet 120 mg (3 x 40 mg) PO TID edema 02/28/24 06/05/24 06/04/24 Rx #270 tabs ostomy supplies-skin barrier 6 X #60 wafers 02/28/24 06/05/24 Unknown Rx 6 wafer (Coloplast Skin Barrier) spironolactone 25 mg tablet 25 mg PO DAILY #30 tabs 02/28/24 06/05/24 06/03/24 Rx clopidogrel 75 mg tablet 75 mg PO DAILY #90 tabs 03/27/24 06/05/24 06/04/24 Rx hydrocodone 5 mg-acetaminophen 325 1 tab PO Q6H PRN pain (scale score 04/21/24 06/05/24 Unknown Rx mg tablet 7-10) 15 days #30 tabs flash glucose scanning reader #2 ea 04/28/24 06/05/24 Unknown Rx (FreeStyle [place]) flash glucose sensor (FreeStyle #2 ea 04/28/24 06/05/24 Unknown Rx Lou 14 Day Sensor kit) pregabalin 50 mg capsule 50 mg PO BID #60 caps 04/28/24 06/05/24 06/04/24 Rx buspirone 10 mg tablet 10 mg PO TID #90 tabs 05/26/24 06/05/24 06/04/24 Rx lorazepam 1 mg tablet 1 mg PO BID PRN anxiety #60 tabs 05/26/24 06/05/24 Unknown Rx vortioxetine 10 mg tablet 10 mg PO DAILY #30 tabs 05/26/24 06/05/24 06/04/24 Rx (Trintellix) mupirocin 2 % topical ointment 1 applic topical TID 7 days #22 06/02/24 06/05/24 Unknown Rx grams sulfamethoxazole 800 2 tab PO BID 7 days #28 tabs 06/02/24 06/05/24 06/04/24 Rx mg-trimethoprim 160 mg tablet (Bactrim DS) isosorbide mononitrate 30 mg 30 mg PO DAILY #30 tabs 06/03/24 06/05/24 06/04/24 Rx tablet,extended release 24 hr hydralazine 25 mg tablet 25 mg PO TID PRN high bp 06/05/24 06/05/24 Unknown History simvastatin 10 mg tablet 10 mg PO QPM 06/05/24 06/05/24 06/03/24 History Allergies Allergy/AdvReac Type Severity Reaction Status Date / Time morphine Allergy Severe Quit Verified 06/03/24 13:57 breathing amiodarone Allergy ALGY-Anaphy Verified 06/03/24 13:57 laxis shellfish derived AdvReac Severe Hives & Verified 06/03/24 13:57 throat swells meperidine [From Demerol] AdvReac Intermediate Made N & V Verified 06/03/24 13:57 Penicillins AdvReac Intermediate RAsh Verified 06/03/24 13:57 Current Medications Generic Name Dose Route Start Last Admin Trade Name Freq PRN Reason Stop Dose Admin Acetaminophen 650 mg 06/05/24 00:10 06/05/24 11:51 Acetaminophen 325 Mg Tablet PO 650 mg Q6H PRN Administration Mild/Mod Pain Or Temp >/= 101 Albuterol Sulfate 2.5 mg 06/05/24 08:44 06/06/24 07:29 Albuterol 2.5 Mg/3 Ml Neb INHALATION 2.5 mg Q4H.RESPIRATORY PRN Administration SHORTNESS OF BREATH Allopurinol 300 mg 06/05/24 09:00 06/06/24 09:27 Allopurinol 300 Mg Tablet PO 300 mg DAILY ANJU Administration Apixaban 5 mg 06/05/24 00:10 06/05/24 01:40 Apixaban 5 Mg Tablet PO 5 mg BID ANJU Administration Atorvastatin Calcium 20 mg 06/05/24 21:00 06/06/24 22:00 Atorvastatin 40 Mg Tablet PO 20 mg BEDTIME ANJU Administration Budesonide 0.5 mg 06/05/24 08:00 06/06/24 20:41 Budesonide 0.5 Mg/2 Ml Neb INHALATION 0.5 mg BID.RESPIRATORY ANJU Administration Buspirone HCl 10 mg 06/05/24 09:00 06/06/24 22:00 Buspirone 10 Mg Tablet PO 10 mg TID ANJU Administration Clopidogrel Bisulfate 75 mg 06/05/24 09:00 06/06/24 09:27 Clopidogrel 75 Mg Tablet PO 75 mg DAILY ANUJ Administration Diltiazem HCl 120 mg 06/05/24 09:00 06/06/24 09:27 Diltiazem Er (24hr) 120 Mg Capsule PO 120 mg DAILY ANJU Administration Furosemide 120 mg 06/06/24 21:00 06/06/24 22:00 Furosemide 40 Mg Tablet PO 120 mg TID ANJU Administration Piperacillin Sod/Tazobactam 50 mls @ 12.5 mls/hr 06/05/24 05:45 06/07/24 06:02 Sod 3.375 gm/ Sodium Chloride IV 12.5 mls/hr Q8H ANJU Administration Protocol Insulin Glargine 40 unit 06/05/24 00:10 06/07/24 02:05 Insulin Glargine 100 Units/1 Ml SUBCUT 40 unit Q12H ANJU Administration Insulin Human Lispro 0 unit 06/05/24 08:00 06/06/24 21:59 Insulin Lispro 100 Unit/1 Ml SUBCUT 12 unit WM&BEDTIME ANJU Administration Protocol Isosorbide Mononitrate 30 mg 06/05/24 09:00 06/06/24 09:27 Isosorbide Mononitrate Er 30 Mg Tablet PO 30 mg DAILY ANJU Administration Levothyroxine Sodium 50 mcg 06/05/24 06:30 06/07/24 06:02 Levothyroxine 50 Mcg Tablet PO 50 mcg 0630 ANJU Administration Lorazepam 1 mg 06/05/24 00:10 06/07/24 02:24 Lorazepam 1 Mg Tablet PO 1 mg BID PRN Administration anxiety Metoclopramide HCl 5 mg 06/05/24 00:10 06/06/24 01:54 Metoclopramide 5 Mg/Ml Sdv 2 Ml IVP 5 mg Q6H PRN Administration NAUSEA AND VOMITING, 3RD LINE Metoprolol Tartrate 100 mg 06/05/24 09:00 06/06/24 17:24 Metoprolol Tartrate 50 Mg Tablet PO 100 mg BID ANJU Administration Nystatin 1 applic 06/05/24 09:00 06/06/24 17:25 Nystatin Powder 15 Gm Btl TOPICAL 1 applic BID ANJU Administration Pantoprazole Sodium 40 mg 06/05/24 00:10 06/07/24 02:06 Pantoprazole 40 Mg Sdv IVP 40 mg Q24H ANJU Administration Pregabalin 50 mg 06/05/24 09:00 06/06/24 17:24 Pregabalin 50 Mg Capsule PO 50 mg BID ANJU Administration Spironolactone 25 mg 06/05/24 09:00 06/06/24 09:27 Spironolactone 25 Mg Tablet PO 25 mg DAILY ANJU Administration PFSH Anesthesia Medical History Atherosclerotic heart disease of [place] coronary artery with unstable angina pectoris CKD (chronic kidney disease) CHF (congestive heart failure) Acute hip pain Fall Weakness COPD with acute exacerbation Acute on chronic hypoxic respiratory failure Pneumonia CHF exacerbation SOB (shortness of breath) Urinary retention Abscess Gait instability Positive cardiac stress test Fluid overload Muscle pain Skin rash Diarrhea Bronchospasm Hyperglycemia Chronic pain Diarrhea Generalized anxiety disorder Type 2 diabetes mellitus MRSA (methicillin resistant staph aureus) culture positive Influenza A Community acquired pneumonia Vitamin B12 deficiency Diabetes type 2, uncontrolled Psychiatric care Polypharmacy Gout Hyperlipidemia Hypothyroidism Fibromyalgia Depression Chronic respiratory failure Amiodarone pulmonary toxicity Atrial fibrillation Hypercholesteremia HTN (hypertension) CAD (coronary artery disease) Last echocardiogram 08/06 with EF of 50% Stents x 3 - last in 02/2023 Major depressive disorder, recurrent severe without psychotic features Chronic pain She reports taking pain medicines and muscle relaxers for a recent back injury; she has chronic left leg pain. Surgical History History of incision and drainage Right breast abscess History of coronary artery stent placement H/O left knee surgery Hx of cholecystectomy History of hysterectomy partial H/O section History of back surgery H/O eye surgery History of carpal tunnel release H/O cardiac radiofrequency ablation Family History Mother Cancer breast Stroke Brother Heart disease Asthma Cancer prostate Sister Heart disease Social History Smoking and tobacco/nicotine status: never used tobacco/nicotine Alcohol intake: never Substance/Drug Use: never Housing: Other Details: Currently with her family Data Anesthesia 06/07/24 05:30 06/06/24 05:19 Short CBC 06/06/24 06/07/24 Range/Units 05:19 05:30 WBC 10.53 8.85 (3.29-11.43) 10^3/uL Hgb 13.60 13.80 (11.27-16.99) g/dL Hct 43.2 42.6 (36-47) % MCV 92.7 89.9 (85-98) fl Plt Count 267 321 (157-399) 10^3/cmm Neut % (Auto) 69.8 62.8 % Neut # (Auto) 7.36 5.56 (1.8-7.7) 10^3/uL BMP 06/06/24 06/07/24 05:19 05:30 Sodium 138 Cancelled Potassium 3.8 Cancelled Chloride 99 Cancelled Carbon Dioxide 29 Cancelled BUN 35 H Cancelled Creatinine 1.9 H Cancelled Glucose 191 H Cancelled Calcium 9.2 Cancelled Microbiology 06/04/24 17:54 Wound Culture - Preliminary Bone Coag positive Staphylococcus 06/05/24 04:35 Urine Culture - Preliminary Urine,Clean Catch Cardiac Studies: 2 Echocardiogram 02/04/24 Sestamibi Stress Test (Cardiology) 01/22
--- NOTE | 2024-06-07 09:19 | P.OP_ITS ---
Operative Report Date of procedure: June 07, 2024 Pre-op diagnosis: Right breast abscess Post-op diagnosis: Right breast abscess and mastitis Post-op findings: There was purulence from the area of previous biopsy site, underlying breast tissue was significantly inflamed with induration almost the whole outer upper quadrant of the breast. There was inflammatory changes in the breast, biopsies were taken. Procedure done: Right breast incisional biopsy, right breast incision and drainage for surgical site abscess Specimens removed/disposition: Cultures for pathology, right breast skin, right breast tissue Surgeon: Janes Villatoro MD Senior Data Quality Analyst: KEIRY OR Staff Estimated blood loss: 5 Brief History: 68-year-old female with a BI-RADS 4 lesion on the right breast that underwent ultrasound-guided biopsy, biopsy show evidence of benign changes but after biopsy patient developed redness on the breast, induration and discharge from the biopsy site consistent with surgical site infection, on my evaluation she had purulence from the area of the biopsies side consistent with the possibility of an abscess. We decided to proceed to the OR for I&D and also additional biopsy of the breast tissue. Procedure: Patient was brought into the OR, she was placed in a supine position. General anesthesia was given. The right breast was prepped and draped in the usual sterile fashion. A timeout was conducted. The area of previous biopsy was noted with some purulent drainage, I used a hemostat to increase the opening and obtained cultures from the purulence. Once I did this I then proceeded to excise this area with the surrounding skin with an elliptical incision measuring about 1.5 cm, this is a sample was excised and sent to pathology as right breast skin. I then proceeded to probe the cavity there was significant induration of the tissue with no additional fluid pockets. I decided to increase the incision medially about 2 cm to get access to the breast tissue I then proceeded to create a small flaps until the superficial breast fascia to obtain a tissue sample of the indurated breast, the indurated breast tissue was then excised with electrocautery the sample measure about 2 x 2 cm. Hemostasis was then achieved I used electrocautery and some 3-0 Vicryl sutures to achieve complete hemostasis. The wound was washed out with saline. I then proceeded to close the medial aspect of the wound with #3-0 Vicryl for the subcutaneous tissue and #3-0 nylon for the skin, 1.5 cm opening was left in the lateral position in the area of previous biopsy site to allow for packing. The wound was packed with half-inch iodoform packing. A sterile dressing was applied. At the end of the procedure all counts were correct, the patient tolerated well the procedure and was transferred to the PACU in stable condition.
--- NOTE | 2024-06-07 09:52 | ANE.PACU2 ---
Inpatient post-anesthesia follow up: Airway intact: Yes Vital signs: Temperature 98 F Pulse Rate 85 Respiratory Rate 18 Blood Pressure 136/86 Pulse Oximetry 93 Oxygen Delivery Me thod Nasal Cannula Oxygen Flow Rate 3 Fraction of Inspir ed Oxygen Hydration adequate: Yes Nausea and vomiting: No Pain level: 2 Mental status: Baseline
[2024-06-07] MEDS: HYDROcodone-acetaminophen 5-325 mg Tablet 1 TAB PO ×2 (11:04→17:30)
[2024-06-07 11:28] LABS: Glucose Point of Care 311 mg/dL (70-110)
[2024-06-07 11:49] LABS: Anion Gap 16.6 (5-19); Blood Urea Nitrogen 38 mg/dL (8-23); Calcium 9.9 mg/dL (8.5-10.5); Carbon Dioxide 26 mmol/L (22-29); Chloride 96 mmol/L (98-107); Creatinine Clr Calc Pharmacy 41.0225; Glomerular Filtration Rate 26.2 mL/min (90-130); Glucose 321 mg/dL (65-115); Magnesium 1.9 mg/dL (1.7-2.3); Osmolality Calculated 299 mOsm/kg (285-295); Potassium 4.6 mmol/L (3.5-5.1); Sodium 134 mmol/L (136-145)
[2024-06-07] MEDS: insulin lispro 100 unit/1 mL SUBCUT ×3 (12:04→21:30)
--- NOTE | 2024-06-07 13:30 | P.PN_ITS ---
Subjective 2 Subjective: seen today pt s/p debridement of right breast cr 1.9 Vitals/I&O/Wt Last Vital Signs Temp 98 F 06/07/24 11:05 Pulse 86 06/07/24 12:05 Resp 17 06/07/24 12:05 BP 143/81 06/07/24 12:05 Pulse Ox 93 06/07/24 12:05 O2 Del Method Nasal Cannula 06/07/24 12:05 O2 Flow Rate 3 06/07/24 10:00 06/06/24 06/07/24 06/07/24 22:59 06:59 14:59 Intake Total 1170 / 1700 100.000 / 1800.000 820 / 820 Output Total 600 / 600 1900 / 2500 5 / 5 Balance 570 / 1100 -1800.000 / -700.000 815 / 815 Weight last 48 hrs Weight 136.622 kg Weight 136.803 kg Physical Exam 2 Const: COMMON NORMALS: no acute distress and patient oriented x3 Eye: COMMON NORMALS: Equal, round and reactive pupils present PUPIL: Yes Equal, round and reactive pupils present Neck/C-Spine: COMMON NORMALS: no JVD Resp: COMMON NORMALS: normal respiratory effort, No retractions, No use of accessory muscles and clear to auscultation bilaterally AUSCULTATION: clear to auscultation bilaterally Cardio: COMMON NORMALS: no JVD, regular rate, regular rhythm, S1 normal heart sound present and S2 normal heart sound present RATE: regular rate RHYTHM: regular rhythm HEART SOUNDS: S1 normal heart sound present and S2 normal heart sound present GI: COMMON NORMALS: Normal to inspection, nondistended, normoactive bowel sounds present and Soft to palpation PALPATION: Yes Soft to palpation Extremity: COMMON NORMALS: no pedal edema Neuro: COMMON NORMALS: patient oriented x3, CN's II-XII intact bilaterally and moves all extremities Psych: COMMON NORMALS: mental status grossly normal Skin: NARRATIVE SKIN EXAM: Right breast, covered with bandage, she is s/p surgical debridement Data 06/07/24 05:30 06/07/24 11:24 Micro: Microbiology 06/05/24 04:35 Urine Culture - Final Urine,Clean Catch 06/04/24 17:54 Wound Culture - Preliminary Bone Coag positive Staphylococcus A&P Assessment and plan (1) Cellulitis of right breast: (2) Atrial fibrillation: Qualifiers: Atrial fibrillation type: persistent (not longstanding) Qualified Code(s): I48.19 - Other persistent atrial fibrillation (3) Class 3 obesity with alveolar hypoventilation and body mass index (BMI) of 40.0 to 44.9 in adult: Qualifiers: Serious obesity comorbidity presence: with serious comorbidity Qualified Code(s): E66.2 - Morbid (severe) obesity with alveolar hypoventilation; Z68.41 - Body mass index [BMI] 40.0-44.9, adult (4) Benign hypertension: (5) Chronic systolic dysfunction of left ventricle: (6) CKD (chronic kidney disease): (7) MRSA (methicillin resistant staph aureus) culture positive: (8) COPD (chronic obstructive pulmonary disease): (9) Chronic restrictive lung disease: (10) Acute kidney injury: Plan Right breast cellulitis -With failure of outpatient antibiotics, Bactrim -With history of MRSA -Recent history of breast biopsy, biopsy results show benign breast parenchyma with areas of more acute and chronic inflammation/mastitis, associated fat necrosis, no atypia or malignancy is seen Plan -Continue vancomycin -Add meropenem -Cultures ordered, wound -Follow blood cultures -Ultrasound right breast -General Surgery has been consulted by ER for consideration of incision and drainage of possible abscess -Patient is DNR/DNI -Eliquis for DVT prophylaxis Acute kidney injury, creatinine 1.8, possibly secondary to Bactrim, monitor Atrial fibrillation, continue Eliquis, metoprolol CHF, continue diuresis Interstitial lung disease 06/07/2024 -Continue to hold Eliquis at this time. Restart after discussion with gen surgery ? Appreciate general surgery consult. ? Pt underwent surgical debridement with biopsies today ? GEORGES: Creatinine 1.9. Continue to hold Bactrim. Place on bumex 2 mg q8H IV ? Continue on IV Zosyn at this time. - Continue vancomycin, - Await cultures - Plan for dc in next 24-48 hours Attestations 2 Medical Necessity Statement*: Patient requires IV antibiotics at this time for mastitis and will require continued hospitalization for drainage of possible abscess on Sunday. Diagnoses Cellulitis of right breast N61.0 Persistent atrial fibrillation I48.19 Atrial fibrillation type: persistent (not longstanding) Class 3 obesity with alveolar hypoventilation, serious comorbidity, and body mass index (BMI) of 40.0 to 44.9 in adult E66.2; Z68.41 Serious obesity comorbidity presence: with serious comorbidity Benign hypertension I10 Chronic systolic dysfunction of left ventricle I51.9 CKD (chronic kidney disease) N18.9 MRSA (methicillin resistant staph aureus) culture positive Z22.322 COPD (chronic obstructive pulmonary disease) J44.9 Chronic restrictive lung disease J98.4 Acute kidney injury N17.9
[2024-06-07] MEDS: BuSPIRONE 10 mg Tablet PO ×2 (14:10→21:10)
[2024-06-07] MEDS: FUROsemide 40 mg Tablet 120 MG PO ×2 (15:02→21:10)
[2024-06-07] MEDS: vancomycin 1,500 MG/300 ML PIGGYBACK 200 MG IV (15:03)
[2024-06-07 16:36] LABS: Glucose Point of Care 424 mg/dL (70-110)
[2024-06-07] MEDS: pregabalin 50 mg Capsule PO (17:29)
[2024-06-07] MEDS: metoprolol tartrate 50 mg Tablet 100 MG PO (17:29)
[2024-06-07] MEDS: nystatin powder 15 gm Btl 1 APPLIC TOPICAL (17:35)
[2024-06-07] MEDS: albuterol 2.5 mg/3 mL Neb INHALATION (20:44)
[2024-06-07] MEDS: budesonide 0.5 mg/2 mL Neb INHALATION (20:44)
[2024-06-07 20:52] LABS: Glucose Point of Care 480 mg/dL (70-110)
[2024-06-07] MEDS: atorvastatin 40 mg Tablet 20 MG PO (21:09)
[2024-06-08] VITALS (11 sets, daily range): BP systolic 127–159; BP diastolic 63–83; PULSE 75–88; RESP 15–174; TEMP 36.3–37; O2SAT 94–98
[2024-06-08] MEDS: insulin glargine 100 units/1 mL 40 UNIT SUBCUT ×2 (00:51→12:17)
[2024-06-08] MEDS: HYDROcodone-acetaminophen 5-325 mg Tablet 1 TAB PO ×2 (04:15→16:17)
[2024-06-08] MEDS: levothyroxine 50 mcg Tablet PO (06:07)
[2024-06-08] MEDS: piperacillin-tazobactam 3.375 GM in sodium chloride 0.9% (plus) 50 ML IV ×3 (06:07→22:08)
[2024-06-08 06:25] LABS: Glucose Point of Care 418 mg/dL (70-110)
--- NOTE | 2024-06-08 07:32 | P.PN_ITS ---
Subjective 2 Subjective: 68-year-old female admitted with right b reast abscess and mastitis after core needle biopsy of right breast lesion. She is possibly day 1 status post I&D and breast biopsy. Patient is doing very well, no significant issues overnight. Vitals/I&O/Wt Last Vital Signs Temp 97.8 F 06/08/24 04:00 Pulse 86 06/08/24 04:00 Resp 15 06/08/24 04:00 BP 143/77 06/08/24 04:00 Pulse Ox 97 06/08/24 04:00 O2 Del Method Nasal Cannula 06/08/24 00:00 O2 Flow Rate 2 06/08/24 00:00 06/07/24 06/08/24 06/08/24 22:59 06:59 14:59 Intake Total 830.0 / 2150.0 530 / 2680.0 Output Total 400 / 405 1200 / 1605 Balance 430.0 / 1745.0 -670 / 1075.0 Weight last 48 hrs Weight 301 lb Weight 301 lb 3.2 oz Physical Exam 2 Chest: OTHER: Right breast shows less erythema, induration has improved, surgical incision appears to be healing well the area of packing shows no purulence packing was replaced. Data 06/07/24 05:30 06/07/24 11:24 Micro: Microbiology 06/07/24 08:39 Gram Stain - Final Breast - #1 06/04/24 17:54 Wound Culture - Final Bone Methicillin Resis Staph Aureus 06/05/24 04:35 Urine Culture - Final Urine,Clean Catch A&P Assessment and plan (1) Mastitis of right breast unrelated to of : Plan Patient showing good progression of her right breast mastitis with abscess. Patient will transition home and family member will help her with packing as she has have packing in the past. Her wound is healing okay from the general surgery standpoint she is safe to transition home for local wound care at home, she needs to follow-up in our clinic in 1 week to ensure adequate wound healing. Patient can resume anticoagulation today. All other management per medical team. Attestations 2 Medical Necessity Statement*: Per medical team Coding Level of Care Code Acute Code for Chg Fwd Diagnoses Mastitis of right breast unrelated to of N61.0
[2024-06-08 08:15] LABS: Basophils # 0.1 10^3/uL (0.0-0.1); Basophils % 0.6 %; Eosinophils % 0.2 %; Hematocrit 43.5 % (36-47); Lymphocytes # 1.3 10^3/uL (0.8-4.8); Mean Corpuscular HGB Conc 32.2 g/dL (30-55); Mean Corpuscular Hemoglobin 28.9 pg (27-33); Mean Corpuscular Volume 89.9 fl (85-98); Mean Platelet Volume 10.7 fL (7.4-10.4); Monocytes # 0.6 10^3/uL (0.2-0.9); Monocytes % 5.8 %; Neutrophils # 8.68 10^3/uL (1.8-7.7); Neutrophils % 79.6 %; Nucleated Red Blood Cells % 0 %; Platelet Count 301 10^3/cmm (157-399); Red Blood Count 4.84 10^6/uL (3.85-5.65); Red Cell Distribution Width 14.6 % (12.1-15.1)
[2024-06-08] MEDS: budesonide 0.5 mg/2 mL Neb INHALATION ×2 (08:26→20:48)
[2024-06-08] MEDS: pantoprazole 40 mg SDV IVP (08:31)
[2024-06-08] MEDS: insulin lispro 100 unit/1 mL SUBCUT ×4 (08:31→20:45)
[2024-06-08] MEDS: isosorbide mononitrate ER 30 mg Tablet PO (08:32)
[2024-06-08] MEDS: spironolactone 25 mg Tablet PO (08:32)
[2024-06-08] MEDS: FUROsemide 40 mg Tablet 120 MG PO ×2 (08:32→16:05)
[2024-06-08] MEDS: BuSPIRONE 10 mg Tablet PO ×3 (08:32→20:45)
[2024-06-08] MEDS: dilTIAZem ER (24HR) 120 mg Capsule PO (08:32)
[2024-06-08] MEDS: clopidogrel 75 mg Tablet PO (08:32)
[2024-06-08] MEDS: metoprolol tartrate 50 mg Tablet 100 MG PO ×2 (08:32→17:05)
[2024-06-08] MEDS: pregabalin 50 mg Capsule PO ×2 (08:32→17:05)
[2024-06-08] MEDS: allopurinol 300 mg Tablet PO (08:32)
[2024-06-08 08:33] LABS: Anion Gap 17.3 (5-19); Blood Urea Nitrogen 49 mg/dL (8-23); Calcium 9.9 mg/dL (8.5-10.5); Carbon Dioxide 28 mmol/L (22-29); Chloride 93 mmol/L (98-107); Creatinine Clr Calc Pharmacy 43.2845; Glomerular Filtration Rate 27.9 mL/min (90-130); Glucose 491 mg/dL (65-115); Magnesium 1.9 mg/dL (1.7-2.3); Osmolality Calculated 313 mOsm/kg (285-295); Potassium 4.3 mmol/L (3.5-5.1); Sodium 134 mmol/L (136-145)
[2024-06-08] MEDS: nystatin powder 15 gm Btl 1 APPLIC TOPICAL ×2 (08:33→17:06)
[2024-06-08 12:10] LABS: Glucose Point of Care 433 mg/dL (70-110)
[2024-06-08] MEDS: LORazepam 1 mg Tablet PO (16:05)
[2024-06-08] MEDS: vancomycin 1,500 MG/300 ML PIGGYBACK 200 MG IV (16:06)
--- NOTE | 2024-06-08 16:15 | PM.PN ---
Subjective Subjective: Patient's intraop abscess cx from 06/07 is positive for Coag + staph, likely S. aureus w/ sensitivities pending. Patient is upset that she cannot be d/c'ed given pending cxs. She complains of diarrhea that began after her biopsy & I&D on 06/07. She states that she has had up to 7 watery BMs today. Per her day nurse, night nursing staff also reported increased BM throughout the night. She denies f/c, CP, palpitations, n/v. She endorses lower abdominal pain when having a BM or urinating. Patient's nurse was in the room when the patient was being seen. Update was also given to the patient's daughter Vitals/I&O/Wt Last Vital Signs Temp 98.1 F 06/08/24 15:53 Pulse 88 06/08/24 15:53 Resp 17 06/08/24 15:53 BP 141/79 06/08/24 15:53 Pulse Ox 96 06/08/24 15:53 O2 Del Method Nasal Cannula 06/08/24 15:53 O2 Flow Rate 3 06/08/24 08:27 06/08/24 06/08/24 06/08/24 06:59 14:59 22:59 Intake Total 530 / 2680.0 1010 / 1010 32.292 / 1042.292 Output Total 1200 / 1605 Balance -670 / 1075.0 1010 / 1010 32.292 / 1042.292 Weight last 48 hrs Weight 136.531 kg Weight 136.622 kg Physical Exam Const: GENERAL APPEARANCE: cooperative; not comfortable NUTRITIONAL APPEARANCE: obese ORIENTATION/CONSCIOUSNESS: Yes awake, Yes oriented to person, Yes oriented to place and Yes oriented to time HENMT: COMMON NORMALS: normocephalic, external ears normal and Normal external nose present HEAD & SCALP: normal to inspection and normocephalic NOSE: Normal external nose present EXTERNAL EAR: Yes external ears normal MOUTH: Normal oral and palatal mucosa present THROAT: posterior oropharynx normal Eye: COMMON NORMALS: Equal, round and reactive pupils present, EOMs intact bilaterally, conjunctivae normal and negative for no scleral icterus CONJUNCTIVA: Yes conjunctivae normal PUPIL: Yes Equal, round and reactive pupils present Neck/C-Spine: COMMON NORMALS: Thyroid normal GENERAL: Yes normal visual inspection and Yes trachea midline THYROID: Thyroid normal CAROTIDS: No bruit CERVICAL SPINE: Yes cervical ROM normal Lymph: OTHER: No cervical or supraclavicular LAD Resp: OTHER: Diminished breath sounds in the b/l lower lung issa Cardio: OTHER: RRR, no m/r/g or clicks GI: OTHER: BS+, NT, ND, no rigidity, no guarding, no rebound tenderness, no hepatosplenomegaly. Extremity: GENERAL: No clubbing, No cyanosis and No edema Neuro: SENSORIUM/ORIENTATION: Yes oriented to person, Yes oriented to place and Yes oriented to time CRANIAL NERVES: Yes CN normal except as noted SPEECH: speech normal SENSORY EXAM: No sensory level loss detected MOTOR EXAM: 5/5 motor strength present throughout Psych: COMMON NORMALS: Normal thought process present and speech normal APPEARANCE: Yes grossly normal ATTITUDE: Yes calm and Yes engaged ACTIVITY/MOTOR BEHAVIOR: Yes appropriate eye contact SPEECH: Yes normal speech MOOD & AFFECT: Yes euthymic mood THOUGHT PROCESS: Normal thought process present THOUGHT CONTENT: Yes Normal thought content present ATTENTION/CONCENTRATION: Yes attention grossly intact MEMORY/COGNITION: Yes memory grossly intact Skin: COMMON NORMALS: no rashes or lesions noted GENERAL SKIN EXAM: no rashes or lesions noted Data 06/08/24 07:47 06/08/24 07:47 Micro: Microbiology 06/07/24 08:39 Gram Stain - Final Breast - #1 Abscess Culture - Preliminary Coag positive Staphylococcus 06/04/24 17:54 Wound Culture - Final Bone Methicillin Resis Staph Aureus 06/05/24 04:35 Urine Culture - Final Urine,Clean Catch A&P Assessment and plan (1) Major depressive disorder, recurrent severe without psychotic features: (2) Benign hypertension: (3) Atrial fibrillation: Qualifiers: Atrial fibrillation type: persistent (not longstanding) Qualified Code(s): I48.19 - Other persistent atrial fibrillation (4) Hyperlipidemia: Qualifiers: Hyperlipidemia type: mixed hyperlipidemia Qualified Code(s): E78.2 - Mixed hyperlipidemia (5) Hypercholesteremia: (6) Mastitis of right breast unrelated to of : Plan Ms Sena is a 68 yo woman w/ CHF, Afib, DM2, CAD, hypothyroidism, 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 breast mastitis and abscess that developed about a week s/p US guided breast biopsy about 3 weeks ago for a BI-RADS 3 lesion here at [facility] right breast. Although results were negative, patient developed mastitis w/ foul-smelling drainage. She was started on Bactrim by her PCP w/ no improvement. She is s/p I & D of the R. breast w/ core biopsies on 06/07/2024. Patient's intraop abscess cx from 06/07 is positive for Coag + staph, likely S. aureus w/ final speciation & sensitivities pending. #Right breast cellulitis -With failure of outpatient antibiotics, Bactrim -With history of MRSA -Recent history of breast biopsy, biopsy results show benign breast parenchyma with areas of more acute and chronic inflammation/mastitis, associated fat necrosis, no atypia or malignancy is seen Plan: On Vanc/Meropenem. -Continue vancomycin -Add meropenem -Cultures ordered, wound -Follow blood cultures -Ultrasound right breast -General Surgery has been consulted by ER for consideration of incision and drainage of possible abscess -Patient is DNR/DNI -Eliquis for DVT prophylaxis #Diarrhea: - C. diff PCR, GI pathogen panel PCR and fecal calprotectin ordered. Strict Is & Os. #GEORGES on CKDIIIB vs CKDIIIB. Creatinine 1.8. Unclear if Bactrim worsened renal fxn. Will hold her Lasix and aldactone on 06/08/2024 especially in light of diarrhea and monitor renal fxn. #Paroxysmal Atrial fibrillation - Held Eliquis. Started Subq Lovenox on 06/08 - Continue Metoprolol - F/u EKG. #CHF, continue diuresis #Interstitial lung disease #IDDM2: On Lantus 40units q12h + sliding scale. BG of 343 at noon today Attestations Medical Necessity Statement*: Patient needs to remain. Her intraop cx aerobic, are growing S. aureus. Final speciation as well as sensitivities are still pending. Coding Level of Care Code 02809 Diagnoses Major depressive disorder, recurrent severe without psychotic features F33.2 Benign hypertension I10 Persistent atrial fibrillation I48.19 Atrial fibrillation type: persistent (not longstanding) Mixed hyperlipidemia E78.2 Hyperlipidemia type: mixed hyperlipidemia Hypercholesteremia E78.00 Mastitis of right breast unrelated to of N61.0
[2024-06-08] MEDS: metoclopramide 5 mg/mL SDV 2 mL IVP (16:23)
[2024-06-08 16:28] LABS: Glucose Point of Care 343 mg/dL (70-110)
--- NOTE | 2024-06-08 16:45 | ECG_ITS ---
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 Measurements Intervals [place] Rate: 77 P: 0 TX: 0 QRS: 6 QRSD: 112 T: -1 QT: 374 QTc: 425 Interpretive Statements ATRIAL FIBRILLATION LOW QRS VOLTAGE IN PRECORDIAL LEADS [QRS DEFLECTION < 1.0 mV IN CHEST LEADS] INCOMPLETE RIGHT BUNDLE BRANCH BLOCK [90+ ms QRS DURATION, TERMINAL R IN V1/V2, 40+ ms S IN I/aVL/V4/V5/V6] MODERATE ST DEPRESSION [0.05+ mV ST DEPRESSION] Compared to ECG 02/25/2024 15:41:21 ST (T wave) deviation now present Atrial flutter no longer present Indeterminate axis no longer present T-wave abnormality no longer present Electronically Signed On 06-09-2024 20:30:34 TELEPHONE MAINTENANCE MECHANIC by Seth Santillan M.D. [email or web address]
[2024-06-08 20:40] LABS: Glucose Point of Care 360 mg/dL (70-110)
[2024-06-08] MEDS: enoxaparin 150 mg/mL Syringe 140 MG SUBCUT (20:45)
[2024-06-08] MEDS: atorvastatin 40 mg Tablet 20 MG PO (20:45)
[2024-06-08 20:54] LABS: C.Diff PCR (Lab) NEGATIVE (Negative)
[2024-06-09] MEDS: insulin glargine 100 units/1 mL 40 UNIT SUBCUT ×2 (00:07→11:38)
[2024-06-09 04:00] VITALS: BP 145/66; PULSE 85; RESP 18; TEMP 36.6; O2SAT 96
[2024-06-09 06:12] LABS: Glucose Point of Care 305 mg/dL (70-110)
[2024-06-09] MEDS: piperacillin-tazobactam 3.375 GM in sodium chloride 0.9% (plus) 50 ML IV (06:43)
[2024-06-09] MEDS: levothyroxine 50 mcg Tablet PO (06:45)
[2024-06-09] MEDS: budesonide 0.5 mg/2 mL Neb INHALATION (07:38)
[2024-06-09 07:40] VITALS: PULSE 85; RESP 18; O2SAT 95
[2024-06-09] MEDS: insulin lispro 100 unit/1 mL SUBCUT ×2 (07:43→11:38)
[2024-06-09] MEDS: pantoprazole 40 mg SDV IVP (07:43)
[2024-06-09] MEDS: allopurinol 300 mg Tablet PO (07:44)
[2024-06-09] MEDS: BuSPIRONE 10 mg Tablet PO (07:44)
[2024-06-09] MEDS: metoprolol tartrate 50 mg Tablet 100 MG PO (07:44)
[2024-06-09] MEDS: pregabalin 50 mg Capsule PO (07:44)
[2024-06-09] MEDS: dilTIAZem ER (24HR) 120 mg Capsule PO (07:44)
[2024-06-09] MEDS: clopidogrel 75 mg Tablet PO (07:44)
[2024-06-09] MEDS: isosorbide mononitrate ER 30 mg Tablet PO (07:45)
[2024-06-09] MEDS: enoxaparin 150 mg/mL Syringe 140 MG SUBCUT (07:45)
[2024-06-09] MEDS: nystatin powder 15 gm Btl 1 APPLIC TOPICAL (07:46)
[2024-06-09 08:32] VITALS: BP 142/81; PULSE 86; RESP 17; TEMP 36.3; O2SAT 94
[2024-06-09 11:12] LABS: Glucose Point of Care 321 mg/dL (70-110)
--- NOTE | 2024-06-09 11:26 | PC.SOCIAL ---
IMM Update pg 2 of IMM Updated and reviewed w/ patient. Copy provided and copy dated, initialed and placed in chart.
[2024-06-09 12:07] VITALS: BP 150/54; PULSE 86; RESP 18; TEMP 36.6; O2SAT 98
[2024-06-09 12:38] VITALS: BP 150/54; PULSE 86; RESP 16; TEMP 36.6; O2SAT 98
--- NOTE | 2024-06-09 17:32 | PM.DCS ---
Discharge Providers Date of Admission: 06/04/24 21:51 Date of Discharge: June 09, 2024 Attending Provider at Admission: Jamel Alicea MD Attending Provider at Discharge: Lela Arambula MD Primary Care Provider: Farhat Acosta MD Diagnoses at Discharge Discharge Diagnosis (1) Major depressive disorder, recurrent severe without psychotic features: Status: Chronic (2) Benign hypertension: Status: Acute (3) Atrial fibrillation: Status: Acute Qualifiers: Atrial fibrillation type: persistent (not longstanding) Qualified Code(s): I48.19 - Other persistent atrial fibrillation (4) Hyperlipidemia: Status: Acute Qualifiers: Hyperlipidemia type: mixed hyperlipidemia Qualified Code(s): E78.2 - Mixed hyperlipidemia (5) Hypercholesteremia: Status: Acute (6) Mastitis of right breast unrelated to of : Status: Acute Reason for Visit Reason for Visit: biopsy, right breast draining and has a knot Hospital Course Hospital Course Shauna Sena is a 68 year old female with a past medical history of CHF, history of atrial fibrillation, history of type 2 diabetes, CAD, hypothyroidism, 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 week or so after her biopsy she started developing swelling, erythema, drainage from the biopsy site. She was diagnosed with breast abscess and mastitis and underwent incision and drainage of breast abscess on June 07, 2024. Postoperatively she has Bactrim to be placed. She was treated with IV piperacillin/tazobactam and vancomycin empirically during her hospital stay. Cultures from the OR have resulted with MRSA. Blood culture was negative. Patient feels symptomatically better than expected to be discharged home. She is being discharged today with recommendations to continue oral linezolid 600 mg twice daily for the next 7 to 10 days. Linezolid was chosen over Bactrim due to underlying CKD and mild hyponatremia. Baseline creatinine of 1.9, sodium 134. Patient did report multiple episodes of diarrhea, suspect antibiotic associated diarrhea, expect this to improve off of IV antibiotics. C. difficile PCR was negative from yesterday. If continues to have bothersome persistent diarrhea may use Imodium as needed. Buspirone and Trintellix were held at discharge until patient remains on linezolid to avoid risk of serotonin release syndrome. Physical Exam Narrative: General: No acute distress, AO x3 HEENT: PERRLA, pupils bilaterally equal and reactive, pallors not present Chest: Normal vesicular breath sounds, no added sounds, equal good air entry bilaterally CVS: S1-S2 regular, no murmurs, no tachycardia, no gallops, no rubs Abdomen: Soft, nontender, no organomegaly, bowel sounds present Neuro: No focal deficits, no facial deformity, AO x3 Discharge Data Studies Completed and Pending Completed Studies During Hospitalization Category Date Time Status CT chest wo con [id number] Stat Cat Scan 06/04/24 17:54 Completed US soft tissue and or extremity [US soft tissue/ Ultrasound 06/04/24 20:46 Completed extremity [id number]] Stat Pending at discharge Category Date Time Status Abscess Culture and Gram Stain Routine Lab 06/07/24 08:39 Results Anaerobic Culture Routine Lab 06/07/24 08:39 Results Blood Culture Stat Lab 06/04/24 21:35 Results Calprotectin Fecal Stat Lab 06/08/24 Received Gastrointestinal Pathogen Baez Routine Lab 06/08/24 18:49 Received Pathology: Surgical [PTH] Routine Pth 06/07/24 09:02 Received Radiology Impressions Chest CT 06/04/24 17:54 IMPRESSION: 1. Prominent inflammatory changes of the right breast without discrete fluid collection. An underlying inflammatory carcinoma would be difficult to exclude. Evaluation at a dedicated breast center is recommended. Soft Tissue Ultrasound 06/04/24 20:46 IMPRESSION: 1. Soft tissue edema and skin thickening without discrete fluid collection. Follow-up evaluation at a dedicated breast center is recommended. Laboratory Results WBC 10.90 10^3/uL (3.29-11.43) 06/08/24 07:47 RBC 4.84 10^6/uL (3.85-5.65) 06/08/24 07:47 Hgb 14.00 g/dL (11.27-16.99) 06/08/24 07:47 Hct 43.5 % (36-47) 06/08/24 07:47 MCV 89.9 fl (85-98) 06/08/24 07:47 MCH 28.9 pg (27-33) 06/08/24 07:47 MCHC 32.2 g/dL (30-55) 06/08/24 07:47 RDW 14.6 % (12.1-15.1) 06/08/24 07:47 Plt Count 301 10^3/cmm (157-399) 06/08/24 07:47 MPV 10.7 fL (7.4-10.4) H 06/08/24 07:47 Neut % (Auto) 79.6 % 06/08/24 07:47 Lymph % (Auto) 12.0 % 06/08/24 07:47 [place] % (Auto) 5.8 % 06/08/24 07:47 Eos % (Auto) 0.2 % 06/08/24 07:47 Baso % (Auto) 0.6 % 06/08/24 07:47 Neut # (Auto) 8.68 10^3/uL (1.8-7.7) H 06/08/24 07:47 Lymph # (Auto) 1.3 10^3/uL (0.8-4.8) 06/08/24 07:47 [place] # (Auto) 0.6 10^3/uL (0.2-0.9) 06/08/24 07:47 Eos # (Auto) 0.0 10^3/uL (0.0-0.8) 06/08/24 07:47 Baso # (Auto) 0.1 10^3/uL (0.0-0.1) 06/08/24 07:47 Nucleated RBC % (auto) 0 % 06/08/24 07:47 Nucleated RBCs # 0.0 /100WBC 06/08/24 07:47 ESR 27 mm/hr (0-15) H 06/04/24 17:29 Sodium 134 mmol/L (136-145) L 06/08/24 07:47 Potassium 4.3 mmol/L (3.5-5.1) 06/08/24 07:47 Chloride 93 mmol/L (98-107) L 06/08/24 07:47 Carbon Dioxide 28 mmol/L (22-29) 06/08/24 07:47 Anion Gap 17.3 (5-19) 06/08/24 07:47 BUN 49 mg/dL (8-23) H 06/08/24 07:47 Creatinine 1.8 mg/dL (0.5-0.9) H 06/08/24 07:47 GFR Calculation 27.9 mL/min (90-130) L 06/08/24 07:47 Glucose 491 mg/dL (65-115) H 06/08/24 07:47 POC Glucose 321 mg/dL (70-110) H 06/09/24 11:00 Estimat Average Glucose 243 06/05/24 05:02 Hemoglobin A1c 10.1 % (4.0-6.0) H 06/05/24 05:02 Calculated Osmolality 313 mOsm/kg (285-295) H 06/08/24 07:47 Lactic Acid 1.8 mmol/L (0.5-2.2) 06/04/24 21:00 Lactic Acid Cancelled 06/04/24 21:00 Calcium 9.9 mg/dL (8.5-10.5) 06/08/24 07:47 Magnesium 1.9 mg/dL (1.7-2.3) 06/08/24 07:47 Total Bilirubin 0.2 mg/dL (0.15-1.2) 06/05/24 05:02 AST 9 U/L (0-32) 06/05/24 05:02 ALT 15 U/L (0-33) 06/05/24 05:02 Alkaline Phosphatase 71 U/L (35-105) 06/05/24 05:02 C-Reactive Protein Cancelled 06/04/24 21:00 Total Protein 6.4 g/dL (6.6-8.7) L 06/05/24 05:02 Albumin 3.1 g/dL (3.5-5.2) L 06/05/24 05:02 Globulin 3.3 g/dL (1.3-4.6) 06/05/24 05:02 Procalcitonin Cancelled 06/04/24 21:00 Urine Color Yellow (Yellow) 06/05/24 04:35 Urine Appearance Clear (CLEAR) 06/05/24 04:35 Urine pH 5.5 (5-7) 06/05/24 04:35 Ur Specific [place] 1.018 (1.005-1.030) 06/05/24 04:35 Urine Protein 1+ (Negative) A 06/05/24 04:35 Urine Glucose (UA) 3+ (Normal) H 06/05/24 04:35 Urine Ketones Negative (Negative) 06/05/24 04:35 Urine Blood Non-haemolysed trace (Negative) 06/05/24 04:35 Urine Nitrate Negative (Negative) 06/05/24 04:35 Urine Bilirubin Negative (Negative) 06/05/24 04:35 Urine Urobilinogen 0.2 mg/dL (Negative) 06/05/24 04:35 Ur Leukocyte Esterase Negative (Negative) 06/05/24 04:35 Urine RBC 11-20 /hpf (0-2) H 06/05/24 04:35 Urine WBC 0-5 /hpf (0-5) 06/05/24 04:35 Ur Squamous Epith Cells 25-40 /hpf (0-5) H 06/05/24 04:35 Amorphous Sediment Not Reportable 06/05/24 04:35 Urine Bacteria 1+ /hpf (NONE) H 06/05/24 04:35 Hyaline Casts 0.40 /lpf 06/05/24 04:35 Urine Yeast 1+ /hpf H 06/05/24 04:35 C. difficile (PCR) Negative (Negative) 06/08/24 Unknown Vitals Last Vital Signs Temp 97.9 F 06/09/24 12:38 Pulse 86 06/09/24 12:38 Resp 16 06/09/24 12:38 BP 150/54 06/09/24 12:38 Pulse Ox 98 06/09/24 12:38 O2 Del Method Nasal Cannula 06/09/24 12:07 O2 Flow Rate 3 06/09/24 07:40 Discharge Plan Discharge Patient Disposition: Home Health Service Condition: Stable Prescriptions: New linezolid 600 mg tablet 600 mg PO BID 10 Days Qty: 20 0RF Continued isosorbide mononitrate 30 mg tablet extended release 24 hr 30 mg PO DAILY Qty: 30 5RF (DME) Manual wheelchair See Rx Instructions .Route .MEDSUPPLY Qty: 1 0RF Rx Instructions: As directed budesonide 0.5 mg/2 mL suspension for nebulization 0.5 mg inhalation BID 180 Days Qty: 720 6RF formoterol fumarate [Perforomist] 20 mcg/2 mL solution for nebulization 2 ml inhalation BID 90 Days Qty: 120 0RF clotrimazole 1 % cream 1 applic topical BID 14 Days Qty: 30 0RF furosemide 40 mg tablet 120 mg PO TID Qty: 270 6RF Rx Instructions: Take 120mg PO BID (Q6hr). Take TID (Q6hr) for the next 2 weeks while fluid overloaded spironolactone 25 mg tablet 25 mg PO DAILY Qty: 30 6RF (DME) Coloplast Skin Barrier 6 X 6 wafer See Rx Instructions .Route Qty: 60 6RF Rx Instructions: As directed - change dressing daily nitroglycerin [Nitrostat] 0.4 mg tablet, sublingual 0.4 mg SUBLINGUAL Q5M PRN (Reason: Chest Pain) Qty: 30 6RF Rx Instructions: do not exceed 3 doses per episode Ozempic 0.25 mg or 0.5 mg (2 mg/3 mL) pen injector 0.25 mg SUBCUT Q7D Qty: 3 3RF Rx Instructions: on Sunday Lantus U-100 Insulin 100 unit/mL solution 90 unit SUBCUT BID Qty: 80 6RF triamcinolone acetonide 0.1 % ointment 1 applic topical BID Qty: 454 2RF Rx Instructions: Apply to affected area no more than 2 weeks per month, as needed. Do not apply to face. mupirocin 2 % ointment 1 applic topical TID 7 Days Qty: 22 0RF cyanocobalamin (vitamin B-12) [Vitamin B-12] 1,000 mcg tablet 1,000 mcg PO DAILY Qty: 30 6RF (DME) insulin syringe-needle U-100 [BD Insulin Syringe] 1 mL 29 gauge x 1/2 syringe See Rx Instructions .Route Qty: 100 6RF Rx Instructions: As directed to inject insulin 2-3x/day allopurinol 300 mg tablet 300 mg PO DAILY Qty: 90 3RF apixaban 5 mg tablet 5 mg PO BID Qty: 180 3RF diltiazem HCl 120 mg capsule,extended release 24hr 120 mg PO DAILY Qty: 90 3RF levothyroxine 50 mcg tablet 50 mcg PO DAILY Qty: 90 3RF metoprolol tartrate 100 mg tablet 100 mg PO BID Qty: 180 3RF potassium chloride 20 mEq tablet,ER particles/crystals 20 meq PO BID Qty: 180 3RF cholecalciferol (vitamin D3) 50 mcg (2,000 unit) capsule 50 mcg PO DAILY Qty: 30 6RF nystatin 100,000 unit/gram powder 1 applic topical BID Qty: 60 6RF clopidogrel 75 mg tablet 75 mg PO DAILY Qty: 90 3RF hydrocodone-acetaminophen 5-325 mg tablet 1 tab PO Q6H PRN (Reason: pain (scale score 7-10)) 15 Days Qty: 30 0RF (DME) FreeStyle Lou 14 Day [place] Misc See Rx Instructions .Route Qty: 2 12RF Rx Instructions: As directed (DME) FreeStyle Lou 14 Day Sensor Kit See Rx Instructions .Route Qty: 2 11RF Rx Instructions: As directed pregabalin 50 mg capsule 50 mg PO BID Qty: 60 5RF lorazepam 1 mg tablet 1 mg PO BID PRN (Reason: anxiety) Qty: 60 0RF acetaminophen 500 mg Tablet 1,000 mg PO Q6H PRN (Reason: Pain) dextromethorphan polistirex [Robitussin ER] 30 mg/5 mL suspension,extended rel 12 hr 10 ml PO Q12H Qty: 89 0RF hydralazine 25 mg tablet 25 mg PO TID PRN (Reason: high bp) simvastatin 10 mg tablet 10 mg PO QPM ketoconazole 2 % shampoo 1 applic topical Q3D PRN (Reason: scalp irritation) Rx Instructions: Lather into scalp 2-3 times weekly. Allow to sit on scalp 5 minutes before rinsing. Held Trintellix 10 mg tablet 10 mg PO DAILY Qty: 30 3RF Hold Instructions: Resume on 06/20/24. hold until treatment with zyvox is completed buspirone 10 mg tablet 10 mg PO TID Qty: 90 1RF Hold Instructions: Resume on 06/20/24. hold until treatment with linezolid is completed Discontinued sulfamethoxazole-trimethoprim [Bactrim DS] 800-160 mg tablet 2 tab PO BID 7 Days Qty: 28 0RF bumetanide 2 mg tablet 2 mg PO DAILY Qty: 60 4RF Discharge Orders: Discharge Order (Routine); Ordered 06/09/24 Ordered By: Lela Arambula Other Ambulatory Orders: DME: [employer] (Order) Location: None Selected Ordered By: Lela Arambula Referrals: [facility] [Outside] Janes Villatoro MD [Physician] - 1 week (1 week with any SUrgery provider, I will be out of office We have notified your physician's clinic of the need for a follow-up appointment to be scheduled. If you have not heard from them within the next 2 business days, please call them directly. ) Farhat Acosta MD [Primary Care Provider] - (We have notified your physician's clinic of the need for a follow-up appointment to be scheduled. If you have not heard from them within the next 2 business days, please call them directly. ) Patient Instructions: Linezolid (By mouth), Acute Wound Care (DC), Opioid Safety, Post Anesthesia Care Activity Restrictions/Additional Instructions: Please replace the packing on the right breast on a daily basis, you can use quarter inch packing and push it in with a long Q-tip until no more packing can be feeling the cavity, you can start showering the day after tomorrow. The Steri-Strips on your breasts are gone to follow-up over time, please follow-up with us in 1 week to remove your sutures and to check the wound. Discharge Attestations Time Spent in Discharge Care*: greater than 30 min Status at Discharge: Cognitive status at discharge: cognitively intact, Behavioral status at discharge: cooperative, Quality Metrics Clinical Quality Measures [ No reported AMI, CVA or VTE this stay] Coding Level of Care Code Acute Code for Chg Fwd Diagnoses Major depressive disorder, recurrent severe without psychotic features F33.2 Benign hypertension I10 Persistent atrial fibrillation I48.19 Atrial fibrillation type: persistent (not longstanding) Mixed hyperlipidemia E78.2 Hyperlipidemia type: mixed hyperlipidemia Hypercholesteremia E78.00 Mastitis of right breast unrelated to of N61.0
[2024-06-10 15:14] LABS: Campylobacter Group NOT DETECTED (NOT DETECTED); Norovirus GI/GII NOT DETECTED (NOT DETECTED); Rotavirus A NOT DETECTED (NOT DETECTED); Shiga Toxin 1 NOT DETECTED (NOT DETECTED); Shigella Species NOT DETECTED (NOT DETECTED); Vibrio Group NOT DETECTED (NOT DETECTED); Yersinia Enterocolotica NOT DETECTED (NOT DETECTED)
== END 2024-06-09 12:39 | disposition home health service (06) | DRG 857 ==
LOC: ER 22:14 → MEDSURG 22:33
PROVIDERS: Emergency Medicine; Internal Medicine; Surgery; Admitting Provider Family Medicine; Emergency Provider Physician Assistant; PCP Family Medicine; Visit Provider Student in an Organized Health Care Education/Training Program
PROC: 0H9T0ZZ Drainage of Right Breast, Open Approach (ICD-10-PCS; principal; 2024-06-07 08:00)
DX: T81.41XA Infection following a procedure, superficial incisional surgical site, initial encounter (principal); E87.1 Hypo-osmolality and hyponatremia; I13.0 Hypertensive heart and chronic kidney disease with heart failure and stage 1 through stage 4 chronic kidney disease, or unspecified chronic kidney disease; I50.22 Chronic systolic (congestive) heart failure; I48.19 Other persistent atrial fibrillation; N17.9 Acute kidney failure, unspecified; Z68.42 Body mass index [BMI] 45.0-49.9, adult; F33.2 Major depressive disorder, recurrent severe without psychotic features; B95.62 Methicillin resistant Staphylococcus aureus infection as the cause of diseases classified elsewhere; T81.49XA Infection following a procedure, other surgical site, initial encounter; N61.1 Abscess of the breast and nipple; N18.9 Chronic kidney disease, unspecified; E11.22 Type 2 diabetes mellitus with diabetic chronic kidney disease; I25.10 Atherosclerotic heart disease of native coronary artery without angina pectoris; E03.9 Hypothyroidism, unspecified; T46.2X Poisoning by, adverse effect of and underdosing of other antidysrhythmic drugs; J68.3 Other acute and subacute respiratory conditions due to chemicals, gases, fumes and vapors; J44.9 Chronic obstructive pulmonary disease, unspecified; G89.29 Other chronic pain; F41.1 Generalized anxiety disorder; E78.00 Pure hypercholesterolemia, unspecified; R19.7 Diarrhea, unspecified; E66.813 Obesity, class 3; M79.7 Fibromyalgia; Z79.4 Long term (current) use of insulin; Z79.01 Long term (current) use of anticoagulants; Z79.891 Long term (current) use of opiate analgesic; Z79.85 Long-term (current) use of injectable non-insulin antidiabetic drugs; Z95.5 Presence of coronary angioplasty implant and graft; Z86.14 Personal history of Methicillin resistant Staphylococcus aureus infection; Z87.01 Personal history of pneumonia (recurrent); Z88.0 Allergy status to penicillin; Z80.3 Family history of malignant neoplasm of breast; Z80.42 Family history of malignant neoplasm of prostate; Z82.3 Family history of stroke; Z82.49 Family history of ischemic heart disease and other diseases of the circulatory system; Z82.5 Family history of asthma and other chronic lower respiratory diseases
CPT/HCPCS: 36415; 36416; 71250; 76882; 80048; 80053; 81001; 82962; 83036; 83605; 83735; 83993; 84145; 85025; 85651; 86140; 87040; 87070; 87075; 87077; 87086; 87186; 87205; 87493; 87506; 88304; 88305; 93005; 94640; 94664; 96365; 96372; 96375; 96376; 99214; 99285; J0330; J1100; J1171; J1200; J1650; J1815; J2405; J2470; J2543; J2704; J2765; J3010; J3370; J3372; J7030; J7050; J7613; J7626

== ENCOUNTER → 2024-06-20 07:30 | Outpatient (BNVA) | payer MEDICARE, MEDICAID, SELFPAY | PROVIDERS: PCP Family Medicine; Visit Provider Student in an Organized Health Care Education/Training Program | DX: Z09 Encounter for follow-up examination after completed treatment for conditions other than malignant neoplasm (principal) | CPT/HCPCS: 99024 ==

== ENCOUNTER → 2024-07-09 07:41 | Outpatient (BNVA) | payer MEDICARE, MEDICAID, SELFPAY | PROVIDERS: PCP Family Medicine; Visit Provider Surgery | DX: N61.0 Mastitis without abscess (principal) | CPT/HCPCS: 99213 ==

== ENCOUNTER → 2024-09-03 10:38 | Outpatient (BNVA) | payer MEDICARE, MEDICAID, SELFPAY | PROVIDERS: PCP Family Medicine; Visit Provider Family Medicine | DX: E11.9 Type 2 diabetes mellitus without complications (principal); E87.6 Hypokalemia; Z51.81 Encounter for therapeutic drug level monitoring | CPT/HCPCS: 80048; 83036; 85025 ==

== ENCOUNTER → 2024-09-16 13:22 | Outpatient (BNVA) | payer MEDICARE, MEDICAID, SELFPAY | PROVIDERS: PCP Family Medicine; Visit Provider Nurse Practitioner Family | DX: I25.118 Atherosclerotic heart disease of native coronary artery with other forms of angina pectoris (principal); Z09 Encounter for follow-up examination after completed treatment for conditions other than malignant neoplasm | CPT/HCPCS: 99214 ==

== ENCOUNTER 2025-02-26 12:31 | Inpatient (IN) | payer MEDICARE, MEDICAID, SELFPAY ==
[2025-02-26] VITALS (51 sets, daily range): BP systolic 94–151; BP diastolic 53–75; PULSE 45–80; RESP 6–27; TEMP 36.5–36.6; O2SAT 90–99; BMI 41.0; BMI 44.4
--- NOTE | 2025-02-26 12:33 | ECG_ITS ---
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: : 1955 Requested By: Sam Gibson Order Number: [id number] Reading MD: YULI ARANA Measurements Intervals [place] Rate: 75 P: 65 [place]: 285 QRS: 45 QRSD: 116 T: 46 QT: 412 QTc: 461 Interpretive Statements SINUS RHYTHM WITH FIRST DEGREE AV BLOCK INCOMPLETE RIGHT BUNDLE BRANCH BLOCK [90+ ms QRS DURATION, TERMINAL R IN V1/V2, 40+ ms S IN I/aVL/V4/V5/V6] MINIMAL ST DEPRESSION [0.025+ mV ST DEPRESSION] INTERPRETATION BASED ON A DEFAULT AGE OF 40 YEARS Compared to ECG 06/08/2024 17:03:40 First degree AV block now present Atrial fibrillation no longer present ST (T wave) deviation still present Electronically Signed On 02-27-2025 20:13:22 CDT by YULI ARANA [email or web address]
--- NOTE | 2025-02-26 12:33 | XRR_ITS ---
PROCEDURE INFORMATION: Exam: XR Chest Exam date and time: 02/26/2025 12:44 PM Age: 69 years old Clinical indication: Pain; Chest pressure; Additional info: Chest pain TECHNIQUE: Imaging protocol: Radiologic exam of the chest. Views: 1 view. COMPARISON: CT chest [facility] [id number] 06/04/2024 6:39 PM FINDINGS: Lungs: Unremarkable. No consolidation. Pleural spaces: Unremarkable. No pleural effusion. No pneumothorax. Heart/Mediastinum: Heart size is enlarged. There is atherosclerosis of the aorta. Bones/joints: Unremarkable. XR/XR chest 1V portable [id number] IMPRESSION: No acute findings.
--- NOTE | 2025-02-26 12:34 | W.ED.CHESTPA ---
HPI - Chest Pain General: Chief Complaint: Chest Pain Stated Complaint: chest pain History of Present Illness: 69-year-old female presents emergency room complaining of chest pain. She began having chest pain with minimal exertion this morning. Setting increasing shortness of breath pain radiating into her back. You she has also had some dizziness associated with it. She patient has a known history of coronary artery disease. History of diabetes mellitus ischemic cardiomyopathy chronic kidney disease. Patient is on 3 L of oxygen by nasal cannula at baseline. She is not currently having chest pain. Pain is relieved after application of nitroglycerin topically. Associated symptoms: Reports dyspnea; Deny abdominal pain or fever(s) Related Data Home Medications ?Medication ?Instructions ?Recorded ?Confirmed acetaminophen 500 mg tablet 1,000 mg PO Q6H PRN Pain 05/11/22 02/26/25 hydralazine 25 mg tablet 25 mg PO TID PRN high bp 06/05/24 02/26/25 budesonide 0.5 mg/2 mL suspension 0.5 mg inhalation BID PRN COPD 02/26/25 02/26/25 for nebulization furosemide 40 mg tablet See Rx Instructions .Route 02/26/25 02/26/25 .COMPLEX edema levothyroxine 50 mcg tablet 50 mcg PO QAM 02/26/25 02/26/25 Previous Rx's ?Medication ?Instructions ?Recorded cyanocobalamin (vitamin B-12) 1,000 mcg PO DAILY #30 tabs 02/05/22 1,000 mcg tablet (Vitamin B-12) nitroglycerin 0.4 mg sublingual 0.4 mg sublingual Q5M PRN Chest 05/24/23 tablet (Nitrostat) Pain #30 tabs cholecalciferol (vitamin D3) 50 50 mcg PO DAILY #30 caps 10/30/23 mcg (2,000 unit) capsule Manual wheelchair #1 ea 12/05/23 ostomy supplies-skin barrier 6 X #60 wafers 02/28/24 6 wafer (Coloplast Skin Barrier) clopidogrel 75 mg tablet 75 mg PO DAILY #90 tabs 03/27/24 flash glucose scanning reader #2 ea 04/28/24 (FreeStyle Lou 14 Day [place]) flash glucose sensor (FreeStyle #2 ea 04/28/24 Lou 14 Day Sensor kit) diltiazem HCl 120 mg 120 mg PO DAILY #90 caps 07/28/24 capsule,extended release 24 hr insulin syringe-needle U-100 1 mL #100 ea 08/26/24 29 gauge x 1/2 isosorbide mononitrate 30 mg 30 mg PO DAILY #30 tabs 09/16/24 tablet,extended release 24 hr spironolactone 25 mg tablet 25 mg PO DAILY #30 tabs 09/19/24 allopurinol 300 mg tablet 300 mg PO DAILY #90 tabs 11/19/24 apixaban 5 mg tablet 5 mg PO BID #180 tabs 11/19/24 atorvastatin 40 mg tablet (Lipitor) 40 mg PO DAILY #90 tabs 11/19/24 metoprolol tartrate 100 mg tablet 100 mg PO BID #180 tabs 11/19/24 potassium chloride 20 mEq 20 meq PO BID #180 tabs 11/19/24 tablet,extended release(part/cryst) pregabalin 50 mg capsule 50 mg PO BID #60 caps 11/19/24 insulin glargine 100 unit/mL (3 90 unit (0.9 mL) SUBCUT BID #60 mL 01/12/25 mL) subcutaneous pen (Lantus Solostar U-100 Insulin) pen needle, diabetic 31 gauge x #100 ea 01/12/25/16 (TechLITE Pen Needle) lorazepam 1 mg tablet 1 mg PO BID PRN anxiety #60 tabs 01/26/25 buspirone 10 mg tablet 10 mg PO TID #90 tabs 02/05/25 dulaglutide 1.5 mg/0.5 mL 1.5 mg (0.5 mL) SUBCUT Q7D #2 mL 02/05/25 subcutaneous pen injector ferrous sulfate 325 mg (65 mg 325 mg PO BID #60 tabs 02/05/25 iron) tablet vortioxetine 10 mg tablet 10 mg PO DAILY #30 tabs 02/05/25 (Trintellix) Allergies Allergy/AdvReac Type Severity Reaction Status Date / Time morphine Allergy Severe Quit Verified 09/16/24 13:34 breathing amiodarone Allergy ALGY-Anaphy Verified 09/16/24 13:34 laxis sulfamethoxazole (From Allergy ALGY-Rash Verified 09/16/24 13:34 Bactrim) trimethoprim (From Bactrim) Allergy ALGY-Rash Verified 09/16/24 13:34 shellfish derived AdvReac Severe Hives & Verified 09/16/24 13:34 throat swells meperidine (From Demerol) AdvReac Intermediate Made N & V Verified 09/16/24 13:34 Penicillins AdvReac Intermediate RAsh Verified 09/16/24 13:34 Review of Systems Const: Denies: fever(s) or chills Card: Reports: chest pain Resp: Reports: dyspnea GI: Denies: abdominal pain : Denies: dysuria, urinary frequency or urinary urgency Musc: Denies: neck pain or back pain Skin/Breast: Denies: rash PFSH ED PFSH: Medical History SOB (shortness of breath) Diabetes type 2, uncontrolled Atherosclerotic heart disease of [place] coronary artery with unstable angina pectoris CKD (chronic kidney disease) CHF (congestive heart failure) Acute hip pain Fall Weakness COPD with acute exacerbation Acute on chronic hypoxic respiratory failure Pneumonia CHF exacerbation Urinary retention Abscess Gait instability Positive cardiac stress test Fluid overload Muscle pain Skin rash Diarrhea Bronchospasm Hyperglycemia Chronic pain Diarrhea Generalized anxiety disorder Type 2 diabetes mellitus MRSA (methicillin resistant staph aureus) culture positive Influenza A Community acquired pneumonia Vitamin B12 deficiency Polypharmacy Gout Hyperlipidemia Hypothyroidism Fibromyalgia Depression Chronic respiratory failure Amiodarone pulmonary toxicity Atrial fibrillation Hypercholesteremia HTN (hypertension) CAD (coronary artery disease) Last echocardiogram 08/06 with EF of 50% Stents x 3 - last in 02/2023 Major depressive disorder, recurrent severe without psychotic features Chronic pain She reports taking pain medicines and muscle relaxers for a recent back injury; she has chronic left leg pain. Surgical History History of incision and drainage Right breast abscess History of coronary artery stent placement Stent x 2 at [facility] - 08/2024 - Total of 10 stents as of 09/03/24 H/O left knee surgery Hx of cholecystectomy History of hysterectomy partial H/O section History of back surgery H/O eye surgery History of carpal tunnel release H/O cardiac radiofrequency ablation Family History Mother Cancer breast Stroke Brother Heart disease Asthma Cancer prostate Sister Heart disease Social History Smoking and tobacco/nicotine status: never used tobacco/nicotine Alcohol intake: never Substance/Drug Use: never Housing: Other Details: Currently with her family Physical Exam Const: GENERAL APPEARANCE: cooperative ORIENTATION/CONSCIOUSNESS: Yes awake, Yes oriented to person, Yes oriented to place and Yes oriented to time HENMT: COMMON NORMALS: normocephalic, atraumatic and hearing grossly normal bilaterally HEAD & SCALP: normocephalic and atraumatic Resp: COMMON NORMALS: normal respiratory effort, No retractions, No use of accessory muscles and clear to auscultation bilaterally AUSCULTATION: clear to auscultation bilaterally Cardio: COMMON NORMALS: regular rate, regular rhythm and No murmurs present (Cardio) RATE: regular rate RHYTHM: regular rhythm GI: COMMON NORMALS: Soft to palpation and No hepatosplenomegaly present AUSCULTATION: Yes normoactive bowel sounds PALPATION: Yes Soft to palpation, No Tenderness to palpation present (GI), No Guarding due to palpation present (GI) and Yes No hepatosplenomegaly present Extremity: OTHER: 2-3+ edema lower extremities. Neuro: SENSORIUM/ORIENTATION: Yes oriented to person, Yes oriented to place and Yes oriented to time Skin: COMMON NORMALS: no rashes or lesions noted GENERAL SKIN EXAM: no rashes or lesions noted Course Vital Signs: Vital signs: Vital Signs Temperature 97.6 F 02/27/25 04:31 Pulse Rate 70 02/27/25 05:43 Respiratory Rate 8 L 02/27/25 03:00 Blood Pressure 91/60 02/27/25 04:00 Pulse Oximetry 92 02/27/25 04:00 Oxygen Delivery Me thod Nasal Cannula 02/26/25 19:45 Oxygen Flow Rate 3 02/26/25 19:48 MDM - Chest Pain Medical Decision Making Patient presents with unstable angina. EKG is unremarkable. Troponins stable. Patient has a history of stage IV CKD, COPD, intermittent atrial fibrillation, coronary artery disease with multiple previous interventions with stents. Sleep apnea chronic hypoventilation due to obesity. Admitted with unstable angina further evaluation discussed with hospitalist orders written. At this time patient is stable chest pain has resolved with topical nitro. Medical Records I reviewed the patient's medical records. Lab Data I reviewed the patient's lab results. 02/27/25 02:27 02/27/25 02:27 Radiology Impressions Chest X-Ray 02/26/25 12:33 IMPRESSION: No acute findings. Laboratory Results WBC 9.65 10^3/uL (3.29-11.43) 02/26/25 12:42 RBC 4.82 10^6/uL (3.85-5.65) 02/26/25 12:42 Hgb 14.30 g/dL (11.27-16.99) 02/26/25 12:42 Hct 44.8 % (36-47) 02/26/25 12:42 MCV 92.9 fl (85-98) 02/26/25 12:42 MCH 29.7 pg (27-33) 02/26/25 12:42 MCHC 31.9 g/dL (30-55) 02/26/25 12:42 RDW 15.8 % (12.1-15.1) H 02/26/25 12:42 Plt Count 213 10^3/cmm (157-399) 02/26/25 12:42 MPV 10.9 fL (7.4-10.4) H 02/26/25 12:42 Neut % (Auto) 67.7 % 02/26/25 12:42 Lymph % (Auto) 19.4 % 02/26/25 12:42 [place] % (Auto) 7.4 % 02/26/25 12:42 Eos % (Auto) 3.5 % 02/26/25 12:42 Baso % (Auto) 1.1 % 02/26/25 12:42 Neut # (Auto) 6.53 10^3/uL (1.8-7.7) 02/26/25 12:42 Lymph # (Auto) 1.9 10^3/uL (0.8-4.8) 02/26/25 12:42 [place] # (Auto) 0.7 10^3/uL (0.2-0.9) 02/26/25 12:42 Eos # (Auto) 0.3 10^3/uL (0.0-0.8) 02/26/25 12:42 Baso # (Auto) 0.1 10^3/uL (0.0-0.1) 02/26/25 12:42 Nucleated RBC % (auto) 0 % 02/26/25 12:42 Nucleated RBCs # 0.0 /100WBC 02/26/25 12:42 PT 15.50 SECONDS (12.1-14.9) H 02/26/25 12:42 INR 1.15 (0.8-1.2) 02/26/25 12:42 APTT 31.3 SECONDS (23.9-36.7) 02/26/25 12:42 Sodium 137 mmol/L (136-145) 02/26/25 12:42 Potassium 5.0 mmol/L (3.5-5.1) 02/26/25 12:42 Chloride 97 mmol/L (98-107) L 02/26/25 12:42 Carbon Dioxide 25 mmol/L (22-29) 02/26/25 12:42 Anion Gap 20.0 (5-19) H 02/26/25 12:42 BUN 37 mg/dL (8-23) H 02/26/25 12:42 Creatinine 1.9 mg/dL (0.5-0.9) H 02/26/25 12:42 GFR Calculation 26.1 mL/min (90-130) L 02/26/25 12:42 Glucose 328 mg/dL (65-115) H 02/26/25 12:42 Calculated Osmolality 305 mOsm/kg (285-295) H 02/26/25 12:42 Calcium 9.3 mg/dL (8.5-10.5) 02/26/25 12:42 Total Bilirubin 0.5 mg/dL (0.15-1.2) 02/26/25 12:42 AST 11 U/L (0-32) 02/26/25 12:42 ALT 17 U/L (0-33) 02/26/25 12:42 Alkaline Phosphatase 89 U/L (35-105) 02/26/25 12:42 Troponin T Baseline 25 ng/L (0-10) H 02/26/25 12:42 Troponin T 120 Minute 23.44 ng/L (0-10) H 02/26/25 14:42 Delta Troponin T -1.56 ABS# (0-10) L 02/26/25 14:42 Total Protein 5.9 g/dL (6.6-8.7) L 02/26/25 12:42 Albumin 3.8 g/dL (3.5-5.2) 02/26/25 12:42 Globulin 2.1 g/dL (1.3-4.6) 02/26/25 12:42 All radiology interpretation(s) finalized by discharge EKG Data EKG 1: Interpretation: EKG 02/26/2025 1234 sinus rhythm first-degree AV block. Rate of 75 OK interval 285 QTc [address] elevations. There are some subtle ST depression in the 4 5 and 6. Compared to EKG 06/08/2024 EKG 2: Interpretation: EKG 02/26/2025 1436 sinus arrhythmia with first-degree AV block. Rate of 55 OK interval 282 QTc [address] No acute ST elevation. ST depression seen on EKG done earlier same day has resolved. 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
[2025-02-26 12:50] LABS: Hematocrit 44.8 % (36-47); Hemoglobin 14.30 g/dL (11.27-16.99); Mean Corpuscular HGB Conc 31.9 g/dL (30-55); Mean Corpuscular Hemoglobin 29.7 pg (27-33); Mean Corpuscular Volume 92.9 fl (85-98); Nucleated Red Blood Cells % 0 %; Platelet Count 213 10^3/cmm (157-399); Red Blood Count 4.82 10^6/uL (3.85-5.65); White Blood Count 9.65 10^3/uL (3.29-11.43)
[2025-02-26 13:18] LABS: Troponin(5th) Baseline 25 ng/L (0-10)
[2025-02-26 13:19] LABS: Alanine Aminotransferase 17 U/L (0-33); Albumin Level 3.8 g/dL (3.5-5.2); Alkaline Phosphatase 89 U/L (35-105); Anion Gap 20.0 (5-19); Aspartate Amino Transferase 11 U/L (0-32); Blood Urea Nitrogen 37 mg/dL (8-23); Calcium 9.3 mg/dL (8.5-10.5); Carbon Dioxide 25 mmol/L (22-29); Chloride 97 mmol/L (98-107); Creatinine Clr Calc Pharmacy 37.9826; Globulin 2.1 g/dL (1.3-4.6); Glucose 328 mg/dL (65-115); Osmolality Calculated 305 mOsm/kg (285-295); Potassium 5.0 mmol/L (3.5-5.1); Sodium 137 mmol/L (136-145); Total Protein 5.9 g/dL (6.6-8.7)
--- NOTE | 2025-02-26 14:33 | ECG_ITS ---
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1955 Requested By: Sam Gibson Order Number: [id number] Reading MD: YULI ARANA Measurements Intervals [place] Rate: 55 P: 42 DC: 282 QRS: 49 QRSD: 103 T: 34 QT: 427 QTc: 411 Interpretive Statements SINUS BRADYCARDIA WITH FIRST DEGREE AV BLOCK WITH FREQUENT SUPRAVENTRICULAR PREMATURE COMPLEXES INCOMPLETE RIGHT BUNDLE BRANCH BLOCK [90+ ms QRS DURATION, TERMINAL R IN V1/V2, 40+ ms S IN I/aVL/V4/V5/V6] MINIMAL ST DEPRESSION [0.025+ mV ST DEPRESSION] Compared to ECG 02/26/2025 12:34:20 Sinus rhythm no longer present ST (T wave) deviation still present Electronically Signed On 02-27-2025 20:17:13 CDT by YULI ARANA [email or web address]
[2025-02-26 15:10] LABS: Troponin 5 2HR 23.44 ng/L (0-10)
[2025-02-26 15:12] LABS: Troponin 5 2HR Delta -1.56 ABS# (0-10)
--- NOTE | 2025-02-26 16:36 | PM.HP ---
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 Currently patient is alert oriented x 3, following all commands, currently chest pain-free, no back pain, no shortness of breath. Patient tells me that she does not get chest pain with her heart disease, when she has had stents placed, she will typically get back pain and shortness of breath which she has been experiencing, no current back pain, denies any tearing pain radiating to her back, no nausea, no vomiting, no lightheadedness, no dizziness, patient denies a history of aortic dissection, she tells me that this is her typical discomfort of her heart, that she experiences, which she has had her symptoms her heart placed, Review of Systems Const: Denies: fever(s) Card: Reports: chest pain Resp: Reports: dyspnea Medications/Allergies Home Medications ?Medication ?Instructions ?Recorded ?Confirmed ?Last Taken ?Type cyanocobalamin (vitamin B-12) 1,000 mcg PO DAILY #30 tabs 02/05/22 02/26/25 02/26/25 Rx 1,000 mcg tablet (Vitamin B-12) acetaminophen 500 mg tablet 1,000 mg PO Q6H PRN Pain 05/11/22 02/26/25 02/03/24 History nitroglycerin 0.4 mg sublingual 0.4 mg sublingual Q5M PRN Chest 05/24/23 02/26/25 02/03/24 Rx tablet (Nitrostat) Pain #30 tabs cholecalciferol (vitamin D3) 50 50 mcg PO DAILY #30 caps 10/30/23 02/26/25 02/26/25 Rx mcg (2,000 unit) capsule Manual wheelchair #1 ea 12/05/23 02/26/25 02/03/24 Rx ostomy supplies-skin barrier 6 X #60 wafers 02/28/24 02/26/25 Unknown Rx 6 wafer (Coloplast Skin Barrier) clopidogrel 75 mg tablet 75 mg PO DAILY #90 tabs 03/27/24 02/26/25 02/26/25 Rx flash glucose scanning reader #2 ea 04/28/24 02/26/25 Unknown Rx (FreeStyle Lou 14 Day [place]) flash glucose sensor (FreeStyle #2 ea 04/28/24 02/26/25 Unknown Rx Lou 14 Day Sensor kit) hydralazine 25 mg tablet 25 mg PO TID PRN high bp 06/05/24 02/26/25 Unknown History diltiazem HCl 120 mg 120 mg PO DAILY #90 caps 07/28/24 02/26/25 02/26/25 Rx capsule,extended release 24 hr insulin syringe-needle U-100 1 mL #100 ea 08/26/24 02/26/25 Unknown Rx 29 gauge x 1/2 isosorbide mononitrate 30 mg 30 mg PO DAILY #30 tabs 09/16/24 02/26/25 02/26/25 Rx tablet,extended release 24 hr spironolactone 25 mg tablet 25 mg PO DAILY #30 tabs 09/19/24 02/26/25 02/26/25 Rx allopurinol 300 mg tablet 300 mg PO DAILY #90 tabs 11/19/24 02/26/25 02/26/25 Rx apixaban 5 mg tablet 5 mg PO BID #180 tabs 11/19/24 02/26/25 02/26/25 Rx atorvastatin 40 mg tablet (Lipitor) 40 mg PO DAILY #90 tabs 11/19/24 02/26/25 02/26/25 Rx metoprolol tartrate 100 mg tablet 100 mg PO BID #180 tabs 11/19/24 02/26/25 02/26/25 Rx potassium chloride 20 mEq 20 meq PO BID #180 tabs 11/19/24 02/26/25 02/26/25 Rx tablet,extended release(part/cryst) pregabalin 50 mg capsule 50 mg PO BID #60 caps 11/19/24 02/26/25 02/26/25 Rx insulin glargine 100 unit/mL (3 90 unit (0.9 mL) SUBCUT BID #60 mL 01/12/25 02/26/25 02/26/25 Rx mL) subcutaneous pen (Lantus Solostar U-100 Insulin) pen needle, diabetic 31 gauge x #100 ea 01/12/25 02/26/25 Unknown Rx 5/16 (TechLITE Pen Needle) lorazepam 1 mg tablet 1 mg PO BID PRN anxiety #60 tabs 01/26/25 02/26/25 Unknown Rx buspirone 10 mg tablet 10 mg PO TID #90 tabs 02/05/25 02/26/25 02/26/25 Rx dulaglutide 1.5 mg/0.5 mL 1.5 mg (0.5 mL) SUBCUT Q7D #2 mL 02/05/25 02/26/25 02/23/25 Rx subcutaneous pen injector ferrous sulfate 325 mg (65 mg 325 mg PO BID #60 tabs 02/05/25 02/26/25 02/26/25 Rx iron) tablet vortioxetine 10 mg tablet 10 mg PO DAILY #30 tabs 02/05/25 02/26/25 02/26/25 Rx (Trintellix) budesonide 0.5 mg/2 mL suspension 0.5 mg inhalation BID PRN COPD 02/26/25 02/26/25 Unknown History for nebulization furosemide 40 mg tablet See Rx Instructions .Route 02/26/25 02/26/25 02/26/25 History .COMPLEX edema levothyroxine 50 mcg tablet 50 mcg PO QAM 02/26/25 02/26/25 02/26/25 History Allergies Allergy/AdvReac Type Severity Reaction Status Date / Time morphine Allergy Severe Quit Verified 09/16/24 13:34 breathing amiodarone Allergy ALGY-Anaphy Verified 09/16/24 13:34 laxis sulfamethoxazole (From Allergy ALGY-Rash Verified 09/16/24 13:34 Bactrim) trimethoprim (From Bactrim) Allergy ALGY-Rash Verified 09/16/24 13:34 shellfish derived AdvReac Severe Hives & Verified 09/16/24 13:34 throat swells meperidine (From Demerol) AdvReac Intermediate Made N & V Verified 09/16/24 13:34 Penicillins AdvReac Intermediate RAsh Verified 09/16/24 13:34 PFSH Acute PFSH: Medical History Diabetes type 2, uncontrolled Atherosclerotic heart disease of [place] coronary artery with unstable angina pectoris CKD (chronic kidney disease) CHF (congestive heart failure) Acute hip pain Fall Weakness COPD with acute exacerbation Acute on chronic hypoxic respiratory failure Pneumonia CHF exacerbation SOB (shortness of breath) Urinary retention Abscess Gait instability Positive cardiac stress test Fluid overload Muscle pain Skin rash Diarrhea Bronchospasm Hyperglycemia Chronic pain Diarrhea Generalized anxiety disorder Type 2 diabetes mellitus MRSA (methicillin resistant staph aureus) culture positive Influenza A Community acquired pneumonia Vitamin B12 deficiency Polypharmacy Gout Hyperlipidemia Hypothyroidism Fibromyalgia Depression Chronic respiratory failure Amiodarone pulmonary toxicity Atrial fibrillation Hypercholesteremia HTN (hypertension) CAD (coronary artery disease) Last echocardiogram 08/06 with EF of 50% Stents x 3 - last in 02/2023 Major depressive disorder, recurrent severe without psychotic features Chronic pain She reports taking pain medicines and muscle relaxers for a recent back injury; she has chronic left leg pain. Surgical History History of incision and drainage Right breast abscess History of coronary artery stent placement Stent x 2 at [facility] - 08/2024 - Total of 10 stents as of 09/03/24 H/O left knee surgery Hx of cholecystectomy History of hysterectomy partial H/O section History of back surgery H/O eye surgery History of carpal tunnel release H/O cardiac radiofrequency ablation Family History Mother Cancer breast Stroke Brother Heart disease Asthma Cancer prostate Sister Heart disease Social History Smoking and tobacco/nicotine status: never used tobacco/nicotine Alcohol intake: never Substance/Drug Use: never Housing: Other Details: Currently with her family Vitals/I&O/Wt Last Vital Signs Temp 97.8 F 02/26/25 12:28 Pulse 70 02/26/25 16:15 Resp 11 L 02/26/25 16:15 BP 144/72 02/26/25 16:15 Pulse Ox 98 02/26/25 16:15 O2 Del Method Nasal Cannula 02/26/25 12:28 O2 Flow Rate 3 02/26/25 12:28 Weight last 48 hrs Weight 122.47 kg Physical Exam Const: COMMON NORMALS: no acute distress and patient oriented x3 Resp: COMMON NORMALS: normal respiratory effort, No retractions, No use of accessory muscles and clear to auscultation bilaterally AUSCULTATION: clear to auscultation bilaterally Cardio: COMMON NORMALS: no JVD, regular rate, regular rhythm, S1 normal heart sound present and S2 normal heart sound present RATE: regular rate RHYTHM: regular rhythm HEART SOUNDS: S1 normal heart sound present and S2 normal heart sound present GI: COMMON NORMALS: Normal to inspection, nondistended, normoactive bowel sounds present, Soft to palpation and non-tender Extremity: COMMON NORMALS: no pedal edema Neuro: COMMON NORMALS: patient oriented x3, CN's II-XII intact bilaterally and moves all extremities Psych: COMMON NORMALS: mental status grossly normal Data 02/26/25 12:42 02/26/25 12:42 A&P Assessment and plan 1. Hyperlipidemia: 2. Hypercholesteremia: 3. GOLDEN (dyspnea on exertion): 4. Atrial fibrillation: 5. CKD (chronic kidney disease): 6. Ischemic cardiomyopathy: 7. Benign hypertension: 8. SOB (shortness of breath): Plan: Shortness of breath -With complaints of back pain -reports that her typical back pain is an indicator of her heart, whenever she has had her 10 stents placed in her heart, she is never had chest pain she has had back pain - No lower extremity edema - Plan - Serial EKGs, serial troponins, telemetry monitoring - Aspirin, statin, Plavix, metoprolol - Therapeutic Lovenox - Hold Eliquis - Cardiac echo - Patient is resting comfortably, is smiling, no tearing chest pain rating to the back, reports her typical cardiac symptoms are manifested as back pain, thought to be unlikely secondary to aortic dissection, creatinine 1.9 cannot do CTA, will do a CT of the chest - Type II days mellitus low-dose sign scale - Decrease Lantus to 20 to twice daily - Hypothyroidism continue levothyroxine - Full code - Lovenox for DVT prophylaxis PDMP PDMP Reviewed: Not Reviewed Attestations Medical Necessity Statement*: Patient requires hospitalization inpatient, greater than 2 midnights, for shortness of breath Diagnoses Hyperlipidemia E78.5 Hypercholesteremia E78.00 GOLDEN (dyspnea on exertion) R06.09 Atrial fibrillation I48.91 CKD (chronic kidney disease) N18.9 Ischemic cardiomyopathy I25.5 Benign hypertension I10 SOB (shortness of breath) R06.02
[2025-02-26 17:01] LABS: INR 1.15 (0.8-1.2); Prothrombin Time 15.50 SECONDS (12.1-14.9)
[2025-02-26 17:02] LABS: Partial Thromboplastin Time 31.3 SECONDS (23.9-36.7)
--- NOTE | 2025-02-26 17:37 | ECG_ITS ---
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: : 1955 Requested By: Sam Gibson Order Number: [id number] Reading MD: YULI ARANA Measurements Intervals [place] Rate: 64 P: 0 ID: 0 QRS: 24 QRSD: 106 T: 45 QT: 431 QTc: 445 Interpretive Statements ATRIAL FIBRILLATION INCOMPLETE RIGHT BUNDLE BRANCH BLOCK [90+ ms QRS DURATION, TERMINAL R IN V1/V2, 40+ ms S IN I/aVL/V4/V5/V6] MINIMAL ST DEPRESSION [0.025+ mV ST DEPRESSION] ABNORMAL RHYTHM ECG Compared to ECG 02/26/2025 14:36:03 Sinus bradycardia no longer present First degree AV block no longer present ST (T wave) deviation still present Electronically Signed On 02-27-2025 20:16:33 CDT by YULI ARANA [email or web address]
--- NOTE | 2025-02-26 17:52 | PC.NURSE ---
Patient stated that they have had thought about not wanting to live anymore. Patient stated that they had no plan. Dr. Alicea was contacted and he ordered to watch the patient closely for now.
[2025-02-26] MEDS: ferrous sulfate EC 325 mg Tablet PO (18:06)
[2025-02-26] MEDS: insulin glargine 100 units/1 mL 20 UNIT SUBCUT (18:06)
[2025-02-26] MEDS: pantoprazole 40 mg SDV IVP (18:07)
[2025-02-26 18:52] LABS: Cholesterol 204 mg/dL (0-200); HDL Cholesterol 32 mg/dL (60-100); Thyroid Stimulating Hormone 2.03 uIU/mL (0.27-4.20); Triglycerides 496 mg/dL (0-150)
[2025-02-26 19:25] LABS: Troponin 5 6HR 21.88 ng/L (0-10)
[2025-02-26 19:26] LABS: Troponin 5 6HR Delta -3.12 ng/L (0-12)
[2025-02-26 20:10] LABS: Estmated Average Glucose 220; Hemoglobin A1C 9.3 % (4.0-6.0)
--- NOTE | 2025-02-26 20:16 | PM.CONSULT ---
Providers/Reason For Consult Consulting Physician/Specialty*: Sylvie Hightower MD Reason for Consult*: Dr. Rudolph/Dr. Rodriguez Requesting Physician: Dr. Rudolph Attending Physician: Jamel Alicea MD Primary Care Provider: Farhat Acosta MD History of Present Illness History of Present Illness Shauna Sena is a 69 year old female past medical history significant for multiple PCI in the past extensive history of coronary artery disease hypertension hyperlipidemia atrial fibrillation anemia chronic kidney disease history of chronic heart failure with reduced ejection fraction on amiodarone presented with worsening of chest pain increase shortness of breath what is suggestive of unstable angina like picture. Patient says that chest pain is exactly the same and she had her previous stents it radiates towards the back in between to scapula. Few months ago she had stent placed in [facility] at that time she was told that she may have couple of other spots that may need intervention. Patient has been admitted to rule out for acute coronary syndrome. Currently she is chest pain-free. Twelve-lead EKG did not show any significant ST-T ST changes while cardiac markers in the face of chronic kidney disease has not been elevated much. Patient has underlying chronic kidney disease with baseline creatinine around 1.5 however today it is 1.9 Medications/Allergies Home Medications ?Medication ?Instructions ?Recorded ?Confirmed ?Last Taken ?Type cyanocobalamin (vitamin B-12) 1,000 mcg PO DAILY #30 tabs 02/05/22 02/26/25 02/26/25 Rx 1,000 mcg tablet (Vitamin B-12) acetaminophen 500 mg tablet 1,000 mg PO Q6H PRN Pain 05/11/22 02/26/25 02/03/24 History nitroglycerin 0.4 mg sublingual 0.4 mg sublingual Q5M PRN Chest 05/24/23 02/26/25 02/03/24 Rx tablet (Nitrostat) Pain #30 tabs cholecalciferol (vitamin D3) 50 50 mcg PO DAILY #30 caps 10/30/23 02/26/25 02/26/25 Rx mcg (2,000 unit) capsule Manual wheelchair #1 ea 12/05/23 02/26/25 02/03/24 Rx ostomy supplies-skin barrier 6 X #60 wafers 02/28/24 02/26/25 Unknown Rx 6 wafer (Coloplast Skin Barrier) clopidogrel 75 mg tablet 75 mg PO DAILY #90 tabs 03/27/24 02/26/25 02/26/25 Rx flash glucose scanning reader #2 ea 04/28/24 02/26/25 Unknown Rx (FreeStyle Lou 14 Day [place]) flash glucose sensor (FreeStyle #2 ea 04/28/24 02/26/25 Unknown Rx Lou 14 Day Sensor kit) hydralazine 25 mg tablet 25 mg PO TID PRN high bp 06/05/24 02/26/25 Unknown History diltiazem HCl 120 mg 120 mg PO DAILY #90 caps 07/28/24 02/26/25 02/26/25 Rx capsule,extended release 24 hr insulin syringe-needle U-100 1 mL #100 ea 08/26/24 02/26/25 Unknown Rx 29 gauge x 1/2 isosorbide mononitrate 30 mg 30 mg PO DAILY #30 tabs 09/16/24 02/26/25 02/26/25 Rx tablet,extended release 24 hr spironolactone 25 mg tablet 25 mg PO DAILY #30 tabs 09/19/24 02/26/25 02/26/25 Rx allopurinol 300 mg tablet 300 mg PO DAILY #90 tabs 11/19/24 02/26/25 02/26/25 Rx apixaban 5 mg tablet 5 mg PO BID #180 tabs 11/19/24 02/26/25 02/26/25 Rx atorvastatin 40 mg tablet (Lipitor) 40 mg PO DAILY #90 tabs 11/19/24 02/26/25 02/26/25 Rx metoprolol tartrate 100 mg tablet 100 mg PO BID #180 tabs 11/19/24 02/26/25 02/26/25 Rx potassium chloride 20 mEq 20 meq PO BID #180 tabs 11/19/24 02/26/25 02/26/25 Rx tablet,extended release(part/cryst) pregabalin 50 mg capsule 50 mg PO BID #60 caps 11/19/24 02/26/25 02/26/25 Rx insulin glargine 100 unit/mL (3 90 unit (0.9 mL) SUBCUT BID #60 mL 01/12/25 02/26/25 02/26/25 Rx mL) subcutaneous pen (Lantus Solostar U-100 Insulin) pen needle, diabetic 31 gauge x #100 ea 01/12/25 02/26/25 Unknown Rx 5/16 (TechLITE Pen Needle) lorazepam 1 mg tablet 1 mg PO BID PRN anxiety #60 tabs 01/26/25 02/26/25 Unknown Rx buspirone 10 mg tablet 10 mg PO TID #90 tabs 02/05/25 02/26/25 02/26/25 Rx dulaglutide 1.5 mg/0.5 mL 1.5 mg (0.5 mL) SUBCUT Q7D #2 mL 02/05/25 02/26/25 02/23/25 Rx subcutaneous pen injector ferrous sulfate 325 mg (65 mg 325 mg PO BID #60 tabs 02/05/25 02/26/25 02/26/25 Rx iron) tablet vortioxetine 10 mg tablet 10 mg PO DAILY #30 tabs 02/05/25 02/26/25 02/26/25 Rx (Trintellix) budesonide 0.5 mg/2 mL suspension 0.5 mg inhalation BID PRN COPD 02/26/25 02/26/25 Unknown History for nebulization furosemide 40 mg tablet See Rx Instructions .Route 02/26/25 02/26/25 02/26/25 History .COMPLEX edema levothyroxine 50 mcg tablet 50 mcg PO QAM 02/26/25 02/26/25 02/26/25 History Allergies Allergy/AdvReac Type Severity Reaction Status Date / Time morphine Allergy Severe Quit Verified 09/16/24 13:34 breathing amiodarone Allergy ALGY-Anaphy Verified 09/16/24 13:34 laxis sulfamethoxazole (From Allergy ALGY-Rash Verified 09/16/24 13:34 Bactrim) trimethoprim (From Bactrim) Allergy ALGY-Rash Verified 09/16/24 13:34 shellfish derived AdvReac Severe Hives & Verified 09/16/24 13:34 throat swells meperidine (From Demerol) AdvReac Intermediate Made N & V Verified 09/16/24 13:34 Penicillins AdvReac Intermediate RAsh Verified 09/16/24 13:34 Current Medications Generic Name Dose Route Start Last Admin Trade Name Freq PRN Reason Stop Dose Admin Ferrous Sulfate 325 mg 02/26/25 18:00 02/26/25 18:06 Ferrous Sulfate Ec 325 Mg Tablet PO 325 mg BID ANJU Administration Sodium Chloride 1,000 mls @ 100 mls/hr 02/26/25 18:00 02/26/25 18:26 Sodium Chloride 0.9% IV 100 mls/hr .Q10H ANJU Administration Insulin Glargine 20 unit 02/26/25 18:00 02/26/25 18:06 Insulin Glargine 100 Units/1 Ml SUBCUT 20 unit BID ANJU Administration Insulin Human Lispro 0 unit 02/26/25 18:00 02/26/25 18:06 Insulin Lispro 100 Unit/1 Ml SUBCUT 6 unit TIDWM ANJU Administration Protocol Metoprolol Tartrate 100 mg 02/26/25 18:00 02/26/25 18:06 Metoprolol Tartrate 50 Mg Tablet PO 100 mg BID ANJU Administration Pantoprazole Sodium 40 mg 02/26/25 17:30 02/26/25 18:07 Pantoprazole 40 Mg Sdv IVP 40 mg Q24H ANJU Administration Pregabalin 50 mg 02/26/25 18:00 02/26/25 18:06 Pregabalin 50 Mg Capsule PO 50 mg BID ANJU Administration PFSH Acute PFSH: Medical History (Updated 02/26/25 @ 20:21 by Sylvie Hightower MD) SOB (shortness of breath) Diabetes type 2, uncontrolled Atherosclerotic heart disease of [place] coronary artery with unstable angina pectoris CKD (chronic kidney disease) CHF (congestive heart failure) Acute hip pain Fall Weakness COPD with acute exacerbation Acute on chronic hypoxic respiratory failure Pneumonia CHF exacerbation Urinary retention Abscess Gait instability Positive cardiac stress test Fluid overload Muscle pain Skin rash Diarrhea Bronchospasm Hyperglycemia Chronic pain Diarrhea Generalized anxiety disorder Type 2 diabetes mellitus MRSA (methicillin resistant staph aureus) culture positive Influenza A Community acquired pneumonia Vitamin B12 deficiency Polypharmacy Gout Hyperlipidemia Hypothyroidism Fibromyalgia Depression Chronic respiratory failure Amiodarone pulmonary toxicity Atrial fibrillation Hypercholesteremia HTN (hypertension) CAD (coronary artery disease) Last echocardiogram 08/06 with EF of 50% Stents x 3 - last in 02/2023 Major depressive disorder, recurrent severe without psychotic features Chronic pain She reports taking pain medicines and muscle relaxers for a recent back injury; she has chronic left leg pain. Surgical History History of incision and drainage Right breast abscess History of coronary artery stent placement Stent x 2 at [facility] - 08/2024 - Total of 10 stents as of 09/03/24 H/O left knee surgery Hx of cholecystectomy History of hysterectomy partial H/O section History of back surgery H/O eye surgery History of carpal tunnel release H/O cardiac radiofrequency ablation Family History Mother Cancer breast Stroke Brother Heart disease Asthma Cancer prostate Sister Heart disease Social History Smoking and tobacco/nicotine status: never used tobacco/nicotine Alcohol intake: never Substance/Drug Use: never Housing: Other Details: Currently with her family Vitals/I&O/Wt Last Vital Signs Temp 97.7 F 02/26/25 19:57 Pulse 70 02/26/25 19:45 Resp 18 02/26/25 19:45 BP 133/54 02/26/25 19:45 Pulse Ox 97 02/26/25 19:45 O2 Del Method Nasal Cannula 02/26/25 19:45 O2 Flow Rate 3 02/26/25 19:48 02/26/25 02/26/25 02/26/25 06:59 14:59 22:59 Output Total 500 / 500 Balance -500 / -500 Weight last 48 hrs Weight 292 lb 6 oz Weight 270 lb Physical Exam Const: OTHER: GENERAL: Patient is alert, awake and oriented x3. HEART: Regular S1 and S2. No murmur, rub or gallop. LUNGS: Clear to auscultate bilaterally. CENTRAL NERVOUS SYSTEM: Grossly nonfocal. EXTREMITIES: Lower extremities with out edema bilaterally. Data 02/26/25 12:42 02/26/25 12:42 A&P Assessment and plan 1. Unstable angina: 2. Ischemic cardiomyopathy: 3. CKD (chronic kidney disease): 4. Atrial fibrillation: 5. Benign hypertension: Plan: Given history of chest pain which has increased in frequency and duration it appeared to me that patient is high risk for acute coronary syndrome and exhibiting unstable angina. We will therefore proceed with left heart cath once creatinine become normal. At this point continue aspirin and statin and nitroglycerin as needed continue Plavix. Will start patient on IV fluid will check renal function in the morning if creatinine near baseline 1.5 will proceed with left heart cath in the afternoon otherwise may will continue to hydrate until renal function improves before left heart catheterization in order to prevent contrast-induced nephropathy. Will ask for [facility] for medical records to assess her previous left heart cath/PCI report Continue IV fluid Continue medication as N.p.o. overnight PDMP PDMP Reviewed: Not Reviewed Coding Level of Care Code Acute Code for Chg Fwd Diagnoses Unstable angina I20.0 Ischemic cardiomyopathy I25.5 CKD (chronic kidney disease) N18.9 Atrial fibrillation I48.91 Benign hypertension I10
--- NOTE | 2025-02-26 21:11 | PC.NURSE ---
Called Dr. Hightower in regards to 120 mg Lovenox ordered; he gave telephone orders to hold dose at this time due to possible cathead worker procedure tomorrow, MAR reflected to show order
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
[2025-02-27] VITALS (94 sets, daily range): BP systolic 88–150; BP diastolic 32–109; PULSE 55–119; RESP 8–28; TEMP 36.4–38.1; O2SAT 84–99
[2025-02-27] MEDS: DOPamine drip 400 MG/250 ML PREMIX 24.87 MG IV (00:18)
[2025-02-27] MEDS: atropine 1 mg/mL SDV 1 mL (00:20)
--- NOTE | 2025-02-27 00:44 | PC.NURSE ---
Bradycardia and Pauses Patient noted to have bradycardia down to the 30s along with pauses. 12 Lead ECG done to capture pauses and Dr. Hightower called, Dr. Hightower gave telephone orders for 1mg Atropine IVP as well as 5 mcg Dopamine IV, and external pacing if needed. MARLEN reflected to show orders and ZOL pads placed on patient.
[2025-02-27] MEDS: ondansetron 2 mg/ML SDV 2 mL 4 MG IVP ×2 (01:07→19:18)
[2025-02-27 01:13] LABS: Glucose Urine UA 2+ (Normal); Nitrate Urine Negative (Negative); Specific Gravity, Urine 1.013 (1.005-1.030)
[2025-02-27 01:15] LABS: Add Urine Microscopic? YES
[2025-02-27 02:48] LABS: Hematocrit 47.5 % (36-47); Hemoglobin 15.30 g/dL (11.27-16.99); Mean Corpuscular HGB Conc 32.2 g/dL (30-55); Mean Corpuscular Hemoglobin 29.3 pg (27-33); Mean Corpuscular Volume 90.8 fl (85-98); Nucleated Red Blood Cells % 0 %; Platelet Count 276 10^3/cmm (157-399); Red Blood Count 5.23 10^6/uL (3.85-5.65); White Blood Count 9.19 10^3/uL (3.29-11.43)
--- NOTE | 2025-02-27 03:00 | PC.NURSE ---
Pt still complaining of nausea after PRN zofran given. Dr. Marinelli notified. New order for 1 mg ativan ivp ONCE and 10 mg compazine ivp once.
[2025-02-27 03:09] LABS: Alanine Aminotransferase 17 U/L (0-33); Albumin Level 3.8 g/dL (3.5-5.2); Alkaline Phosphatase 92 U/L (35-105); Anion Gap 19.2 (5-19); Aspartate Amino Transferase 11 U/L (0-32); Blood Urea Nitrogen 40 mg/dL (8-23); Calcium 9.2 mg/dL (8.5-10.5); Carbon Dioxide 26 mmol/L (22-29); Chloride 96 mmol/L (98-107); Creatinine Clr Calc Pharmacy 39.7483; Globulin 2.8 g/dL (1.3-4.6); Glucose 281 mg/dL (65-115); Osmolality Calculated 304 mOsm/kg (285-295); Potassium 4.2 mmol/L (3.5-5.1); Sodium 137 mmol/L (136-145); Total Protein 6.6 g/dL (6.6-8.7)
[2025-02-27] MEDS: LORazepam 1 MG/0.5 ML injection IVP ×2 (03:10→20:56)
--- NOTE | 2025-02-27 07:00 | CT_ITS ---
WS: [id number] CT CHEST TECHNIQUE: Noncontrast CT of the chest with coronal and sagittal reformatted images. CLINICAL INFORMATION: back pain DLP: 687.[address] scans at [facility] use at least one of these dose optimization techniques: automated exposure control; mA and/or kV adjustment per patient size (includes targeted exams where dose is matched to clinical indication); or iterative reconstruction. FINDINGS: Moderate thoracic kyphosis. Ankylosis thoracic spine. No acute appearing compression fractures. Osteopenia. Chronic emphysematous changes. No focal pneumonia or pleural fluid. Cardiomegaly. Aortic calcification. Coronary calcification. Aberrant RIGHT subclavian artery. No mediastinal or hilar lymphadenopathy. Small esophageal hiatal hernia. Splenic artery calcification. Adrenal glands are normal. Splenic artery calcification. RIGHT breast nodularity similar to 2023 CT/CT chest con [id number] IMPRESSION: 1. Moderate chronic emphysematous changes. No acute pulmonary infiltrates. 2. Moderate thoracic kyphosis with ankylosis and osteopenia. 3. Aberrant RIGHT subclavian artery. 4. No other acute findings.
--- OUTSIDE RECORDS SUMMARY | 2025-02-27 07:31 | XMS_ITS | Clinical Summary ---
Author Organization [facility] Facility Address [address] [place] [id number] Care Team Providers Care Stewardess Supervisor Name Role Phone Farhat Acosta MD Primary Care Provider [phone] Allergies Active Allergy Reactions Criticality Noted Date Comments Amiodarone Other (see comments) 07/31/2018 Erythromycin Rash Low 04/26/2009 Meperidine Other (see comments) Medium 09/30/2018 Morphine Other (see comments) 04/24/2009 Oxycodone-Acetaminophen Nausea And Vomiting 02/2009 Penicillins Rash Low 04/26/2009 Shellfish Allergy Swelling 04/24/2009 Medications simvastatin (ZOCOR) 80 MG tablet Take 80 mg by mouth every night Active sertraline (ZOLOFT) 100 MG tablet Take 100 mg by mouth 1 (one) time each day 8 Active pregabalin (LYRICA) 150 MG capsule Take 150 mg by mouth daily Active potassium chloride (KLOR-CON M20) 20 MEQ CR tablet 20 mEq Take 2 tablets every morning 1 tablet at noon and 2 tablets every evening Active OLANZapine (ZyPREXA) 5 MG tablet Take 5 mg by mouth 8 Active metoprolol tartrate (LOPRESSOR) 50 MG tablet Take 50 mg by mouth twice a day Active levothyroxine (SYNTHROID, LEVOTHROID) 50 MCG tablet Take 50 mcg by mouth 1 (one) time each day Active insulin NPH-insulin regular (HumuLIN 70/30 KWIKPEN) (70-30) 100 UNIT/ML injection Inject under the skin 60 units am 80 u noon 445 u evening Active HYDROcodone-acet aminophen (NORCO) 5-325 MG per tablet Take 2 tablets by mouth every 4 (four) hours if needed 8 Active furosemide (LASIX) 80 MG tablet Take 80 mg by mouth 2 (two) times a day Active clopidogrel (PLAVIX) 75 MG tablet Take 75 mg by mouth Active bisacodyl (DULCOLAX) 10 MG suppository Insert 10 mg into the rectum Active apixaban (ELIQUIS) 5 MG tablet Take 5 mg by mouth twice a day Active allopurinol (ZYLOPRIM) 300 MG tablet Take 300 mg by mouth daily Active albuterol HFA (PROAIR HFA) 108 (90 Base) MCG/ACT inhaler Inhale 2 puffs every 6 (six) hours if needed 8 Active Aloe-Sodium Chloride (AYR SALINE NASAL GEL NA) Administer 1 spray into affected nostril(s) Active polyethylene glycol (MIRALAX) packet Take 17 g by mouth 1 (one) time each day if needed 9 Active docusate sodium (COLACE) 100 MG capsule Take 100 mg by mouth 2 (two) times a day if needed 9 Active dilTIAZem CD (dilTIAZem CD) 120 MG 24 hr capsule Take 120 mg by mouth daily Active metOLazone (ZAROXOLYN) 2.5 MG tablet 2.5 mg Take 1 tablet by mouth every Sunday, Sunday and Sunday Active Active Problems Problem Noted Date Diagnosed Date Chronic kidney disease stage 3 10/06/2018 Type 2 diabetes mellitus with kidney complicatio ns 10/06/2018 Essential hypertension 01/23/2018 Coronary arteriosclerosis 01/23/2018 Dyslipidemia 01/23/2018 Obstructive sleep apnea syndrome 01/23/2018 Persistent atrial fibrillation 01/23/2018 Immunizations Immunization Administration Dates Next Due Influenza TIV (IM) 04/03/2018 Family History Medical History Relation Comments Heart disease Father Cancer Mother Heart disease Mother Hypertension Mother Stroke Mother Diabetes Sibling Heart disease Sibling Hypertension Sibling Relation Status Comments Father Mother Sibling Social History Tobacco Use Types Packs/Day Years Used Date Smoking Tobacco: Never Smokeless Tobacco: Never Alcohol Use Standard Drinks/Week Comments Never 0 (1 standard drink = 0.6 oz pur e alcohol) AUDIT-C Answer Date Recorded Frequency of Alcohol Consumption Never 10/08/2018 Average Number of Drinks Not on file 019 Frequency of Binge Drinking Not on file 09/17 Comments Unknown Sex and Gender Information Value Date Recorded Sex Assigned at Not on file Legal Sex Female 12:47 PM EST Gender Identity Not on file Sexual Orientation Not on file Last Filed Vital Signs Vital Sign Reading Time Taken Comments Blood Pressure 128/78 04/09/2019 1:48 PM CDT Pulse 74 04/09/2019 1:48 PM CDT Temperature - - Respiratory Rate - - Oxygen Saturation - - Inhaled Oxygen Concentration - - Weight 134 kg (296 lb 8 oz) 04/09/2019 1:48 PM C DT Height 172.7 cm (5' 8 ) 04/09/2019 1:48 PM CDT Body Mass Index 45.08 04/09/2019 1:48 PM CDT Plan of Treatment Health Maintenance Due Date Last Done Comments Breast Cancer Screening 1955 Pneumococcal Vaccine: 50+ Years (1 of 2 - PCV) 1973 Colorectal Cancer Screening: Annual FOBT 10/30/2003 Colorectal Cancer Screening: Colonoscopy 10/30/2003 Colorectal Cancer Screening: Sigmoidoscopy 10/30/2003 Diabetes: Ophthalmology Exam 08/22/2018 Diabetes: Pedal Pulse Checked 08/22/2018 Diabetes: Sensory Foot Exam 08/22/2018 Diabetes: Visual Foot Exam 08/22/2018 Diabetes: Hemoglobin A1C 10/27/2019 020, 07/31/2018 Influenza Vaccine (#1) 2025 04/03/2018 Hepatitis B Vaccine Aged Out No longe r eligible based on patient's age to complete this topic Procedures Procedure Name Priority Date/Time Associated Diagnosis Comments HEMOGLOBIN A1C (EXTERNAL RESULT ENTRY) Routine 07/29/2019 2:29 PM MARKETING SERVICES MANAGER from Last 3 Months or Most Recently Relevant to Health Maintenance Results * Hemoglobin A1C (07/29/2019 2:29 PM MARKETING SERVICES MANAGER) Hemoglobin A1C 9.5 Blood specimen (specimen) Venous blood / Unknown 07/29/2019 2:29 PM MARKETING SERVICES MANAGER Narrative Darcy Villanueva MA - 10/06/2019 2:49 PM CDT Courtesy lab [facility] [place] [address] [address] [facility] [place] [address] Food Service Employee: Dom Das DO MPH CLIA: [id number] us Farhat Acsota MD LAB BLOOD ORDERABLES Final Resu lt from Last 3 Months or Most Recently Relevant to Health Maintenance Insurance Medicaid [place] ([id number]) [facility] Care Teams Stewardess Supervisor Relationship Specialty Start Date End Date Farhat Acosta MD PCP - General Family Medicine 09/30/18
--- OUTSIDE RECORDS SUMMARY | 2025-02-27 07:31 | XMS_ITS | Encounter Summary ---
Author Organization [facility] Address [address] [place] [address] Phone Care Team Providers Care Hull And Deck Remover Name Role Phone Farhat Acosta MD Primary Care Provider [phone] Encounter Details Date Type Department Care Team (Late st Contact Info) Description 04/09/2019 Orders Only [facility] [address] [place] [address] Mo Bolaños MD [address] [place] [address] Chronic kidney disease stage 3 (HCC) Social History Tobacco Use Types Packs/Day Years [...] on file Sexual Orientation Not on file documented as of this encounter Plan of Treatment Not on file documented as of this encounter Procedures Procedure Name Priority Date/Time Associated Diagnosis Comments CBC Routine 04/07/2019 12:18 PM CDT Chronic kidney disease stage 3 (HCC) documented in this encounter Results * CBC (CKD3a) (04/07/2019 12:18 PM CDT) WBC 9.8 K/uL [facility] Red Blood Cell Count 5.04 [facility] Hemoglobin 13.8 g/dL [facility] Hematocrit 42.7 % [facility] MCV 84.7 [facility] MCH 27.4 [facility] MCHC 32.3 [facility] RDW 17.1 [facility] Platelet Count 275 [facility] MPV 10.2 [facility] Absolute Neutrophils 7,272 [facility] Absolute Lymphocytes 1,421 [facility] Absolute Monocytes 676 [facility] Absolute Eosinophils 363 [facility] Absolute Basophils 69 [facility] Neutrophils 74.2 K/uL [facility] Lymphocytes 14.5 [facility] Monocytes 6.9 [facility] Eosinophils 3.7 [facility] Basophils 0.7 [facility] Blood specimen (specimen) 04/07/2019 12:18 PM CDT Narrative [facility] - 04/09/2019 6:37 AM CDT segment assembler lab [facility] [place] [id number] [place] [address] Financial Services Director: Dom Das DO MPH CLIA: [id number] us Mo Bolaños MD LAB BLOOD ORDERABLES Fi nal Result [facility] documented in this encounter Visit Diagnoses Diagnosis Chronic kidney disease stage 3 (HCC) documented in this encounter Care Teams Hull And Deck Remover Relationship Specialty Start Date End Date Farhat Acosta MD PCP - General Family Medicine 09/30/18 documented as of this encounter
--- OUTSIDE RECORDS SUMMARY | 2025-02-27 07:31 | XMS_ITS | Encounter Summary ---
Author Organization [facility] Address [address] [place] [address] Care Team Providers Care Translator Interpreter Name Role Phone Farhat Acosta MD Primary Care Provider [phone] Reason for Referral * Outpatient Services (Routine) - Closed Specialty Diagnoses / Procedures Referred By Contac t Referred To Contact Diagnoses Persistent atrial fibrillation ([facility]/HCC) Stable angina ASHD (arteriosclerotic heart disease) Typical atrial flutter ([facility]/HCC) Morbid obesity with body mass index of 40.0-49.9 ([facility]/HCC) Dyslipidemia 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 ([facility]/HCC) 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 ([facility]/HCC) Fibromyalgia Oxygen dependent Respiratory illness Procedures ECHOCARDIOGRAM W/ CONTRAST AGENT ECHO COMPLETE Jose Segura MD [facility] Pre-Registration [place] CALL TO MAKE APPOINTMENT ONLY [address] [place] [address] Phone: tel: fax: Referral ID Status Reason Start Date Expiration Date V isits Requested Visits Authorized [id number] Closed F [facility] TO SCHEDULE (SGF) 02/07/2018 03/10/2019 1 1 Encounter Details Date Type Department Care Team (Latest Contact Info) Description 03/05/2018 Ancillary Orders [facility] Cardiac Thoracic Vascular Surg [place] [address] [place] [address] Jose Segura MD NO ADDRESS ON FILE Persistent atrial fibrillation ([facility]); Stable angina; ASHD (arteriosclerotic heart disease); Typical atrial flutter ([facility]); Morbid obesity with body mass index of 40.0-49.9 ([facility]); Dyslipidemia; 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 ([facility]); 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 ([facility]); Fibromyalgia; Oxygen dependent; Respiratory illness Social History Tobacco Use Types Packs/Day Years Used Date Smoking Tobacco: Never Alcohol Use Standard Drinks/Week Comments No 0 (1 standard drink = 0.6 oz pur e alcohol) Comments Unknown Sex and Gender Information Value Date Recorded Sex Assigned at Not on file 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 Gender Identity Not on file Sexual Orientation Not on file documented as of this encounter Plan of Treatment Not on file documented as of this encounter Results * ECHOCARDIOGRAM W/ CONTRAST AGENT (03/05/2018 2:19 PM CDT) EJECTION FRACTION INTERFACE SYSTEM 03/05/2018 1:06 PM CDT Narrative INTERFACE SYSTEM - 03/06/2018 6:51 [place] [address] Transthoracic Echocardiography Patient: Nathen Study ECHO COMPLETE Shauna Gibson ID: Gender: F : 1955 Age: 62 Room: Study 03/05/2018 Pt Outpatient Date: Status: Study 01:06:04 PM CSN #: [id number] Time: Ordering:Jose Segura MD, RPVI Interpreting:Raman Robles MD [facility] Dem[employer]ation Agent: Stephen Martinez RDCS Indications and History: Persistent atrial fibrillation. Summary and Conclusion: - Left ventricle: Not well visualized. The cavity size was normal. Wall thickness was at the upper limits of normal. Systolic function was normal. The visually estimated ejection fraction was in the range of 55% to 60%. Images were inadequate for LV wall motion assessment. The study is not technically sufficient to allow evaluation of LV diastolic function. - Right ventricle: The cavity size was normal. Systolic function was normal. The estimated peak pressure was 32mm Hg. - Left atrium: The atrium was mildly dilated. - Right atrium: The atrium was dilated. - Aortic valve: Not well visualized. - Tricuspid valve: Not well visualized. Procedure information: Comparison was made to the study of 04/24/2009. Study status: Routine. Procedure: Transthoracic echocardiography. Image quality was adequate. Scanning was performed from the parasternal, apical, subcostal, and suprasternal notch acoustic windows. Intravenous contrast (Definity) was administered. There were no complications. There were no contrast reactions. Study components: M-mode, 2D, complete spectral Doppler, and color Doppler. Height: 172.7cm. Height: 68in. Weight: 137.4kg. Weight: 302.2lb. BMI: 46.1kg/m\S\2. BSA: 2.64m\S\2. Blood pressure: 110/60 Study date: 03/05/2018. Study time: 01:06 PM. Location: Echo laboratory. Cardiac Anatomy: LEFT VENTRICLE: Not well visualized. The cavity size was normal. Wall thickness was at the upper limits of normal. Systolic function was normal. The visually estimated ejection fraction was in the range of 55% to 60%. Images were inadequate for LV wall motion assessment. The study is not technically sufficient to allow evaluation of LV diastolic function. RIGHT VENTRICLE: The cavity size was normal. Systolic function was normal. The estimated peak pressure was 32mm Hg. LEFT ATRIUM: The atrium was mildly dilated. RIGHT ATRIUM: The atrium was dilated. ATRIAL SEPTUM: Not well visualized. AORTIC VALVE: Not well visualized. Probably trileaflet. Mobility was not restricted. Doppler: There was no stenosis. Trivial regurgitation. Peak gradient (S): 14mm Hg. MITRAL VALVE: Mobility was not restricted. No echocardiographic evidence for prolapse. Doppler: There was no evidence for stenosis. No significant regurgitation. Valve area by pressure half-time: 2.45cm\S\2. Indexed valve area by pressure half-time: 0.93cm\S\2/m\S\2. Mean gradient (D): 1mm Hg. Peak gradient (D): 3mm Hg. TRICUSPID VALVE: Not well visualized. Mobility was not restricted. Doppler: There was no evidence for stenosis. Trivial regurgitation. Peak gradient (D): 24mm Hg. PULMONIC VALVE: Not well visualized. The valve appears to be grossly normal. Doppler: There was no evidence for stenosis. No significant regurgitation. PERICARDIUM: There was no pericardial effusion. AORTA: Aortic root: The aortic root was normal in size. SYSTEMIC VEINS: Inferior vena cava: The vessel was normal in size. 2D measurements Doppler measurements Left ventricle Left ventricle LVID ED, PLAX 5.8 cm IVRT 97 ms LVID ES, PLAX 4.3 cm Aortic valve FS, endocardial, 27 % Peak jose l, S 184.54 cm/sec PLAX Peak gradient, S 14 mm Hg Major axis ES, A4C 7.2 cm Mitral valve Minor axis ED, A4C 7.2 cm Peak E jose l 81.73 cm/sec Major axis ED, A2C 8.7 cm Peak A jose l 49.59 cm/sec Major axis ES, A2C 6.3 cm Mean jose l, D 38.93 cm/sec LVID, ES 4.3 cm VTI leaflet 31.1 cm LVPW, ED 0.9 cm coapt IVS/LVPW ratio, ED 1.09 Deceleration 309 ms Vol, ED, 1-p A2C 116 ml time Vol, ES, 1-p A2C 62 ml Pressure 90 ms EF, 1-p A2C 53 % half-time Vol ED, 1-p A4C 173 ml Mean gradient, D 1 mm Hg Vol ES, 1-p A4C 79 ml Peak gradient, D 3 mm Hg EF, 1-p A4C 55 % Peak E/A ratio 1.65 SV, 1-p A4C 94 ml Area (PHT) 2.45 cm\S\2 EDV/bsa, 1-p A4C 66 ml/m\S\2 Area/bsa (PHT) 0.93 cm\S\2/m\S\2 ESV/bsa, 1-p A4C 30 ml/m\S\2 Regurg vena 3.0 cm SV/bsa, 1-p A4C 36 ml/m\S\2 contracta Vol ED, 2-p 150 ml Tricuspid valve Vol ES, 2-p 69 ml Peak gradient, D 24 mm Hg EF, 2-p 54 % Regurg peak jose l 244.43 cm/sec SV, 2-p 54 ml Peak RV-RA 24 mm Hg Vol/bsa, ED, 2-p 57 ml/m\S\2 gradient, S Vol/bsa, ES, 2-p 26 ml/m\S\2 SV/bsa, 2-p 20.6 ml/m\S\2 Ventricular septum IVS, ED 0.9 cm LVOT Diam, S 2.0 cm Area 3 cm\S\2 Aorta Root diam 2.9 cm Left atrium AP dim 4.2 cm AP dim index 1.6 cm/m\S\2 SI dim, A4C 6.2 cm Area ES, A4C 26 cm\S\2 Vol, S 89 ml Vol/bsa, S 34 ml/m\S\2 Vol, ES, 1-p A4C 87 ml Vol/bsa, ES, 1-p A4C 33 ml/m\S\2 Vol, ES, 1-p A2C 77 ml Vol/bsa, ES, 1-p A2C 29 ml/m\S\2 Vol, ES, A/L 93 ml Vol/bsa, ES, A/L 35 ml/m\S\2 Right atrium Area, ES 24 cm\S\2 Area, ES, A4C 24 cm\S\2 Right ventricle RVID ED, PLAX 3.0 cm RVID ED 3.0 cm [facility] Echo Labs are accredited with the [facility] Accreditation Commission - Echocardiography. Prepared and Electronically Authenticated Raman Robles MD Confirmed 03/06/2018 18:50 Procedure Note Raman Robles MD - 03/06/2018 [facility] Echocardiography-[place] [address] [facility] [address] [place] [address] Transthoracic Echocardiography Patient: MR NathenN: [id number] Study ECHO COMPLETE Shauna Gibson ID: Gender: F : 1955 Age: 62 Room: Study 03/05/2018 Pt Outpatient Date: Status: Study 01:06:04 PM [facility] #: [id number] Time: Ordering:Jose Segura MD, RPVI Interpreting:Raman Robles MD [employer] [facility] Dem[employer] Agent: Stephen Martinez [facility] Indications and History: Persistent atrial fibrillation. Summary and Conclusion: - Left ventricle: Not well visualized. The cavity size was normal. Wall thickness was at the upper limits of normal. Systolic function was normal. The visually estimated ejection fraction was in the range of 55% to 60%. Images were inadequate for LV wall motion assessment. The study is not technically sufficient to allow evaluation of LV diastolic function. - Right ventricle: The cavity size was normal. Systolic function was normal. The estimated peak pressure was 32mm Hg. - Left atrium: The atrium was mildly dilated. - Right atrium: The atrium was dilated. - Aortic valve: Not well visualized. - Tricuspid valve: Not well visualized. Procedure information: Comparison was made to the study of 04/24/2009. Study status: Routine. Procedure: Transthoracic echocardiography. Image quality was adequate. Scanning was performed from the parasternal, apical, subcostal, and suprasternal notch acoustic windows. Intravenous contrast (Definity) was administered. There were no complications. There were no contrast reactions. Study components: M-mode, 2D, complete spectral Doppler, and color Doppler. Height: 172.7cm. Height: 68in. Weight: 137.4kg. Weight: 302.2lb. BMI: 46.1kg/m\S\2. BSA: 2.64m\S\2. Blood pressure: 110/60 Study date: 03/05/2018. Study time: 01:06 PM. Location: Echo laboratory. Cardiac Anatomy: LEFT VENTRICLE: Not well visualized. The cavity size was normal. Wall thickness was at the upper limits of normal. Systolic function was normal. The visually estimated ejection fraction was in the range of 55% to 60%. Images were inadequate for LV wall motion assessment. The study is not technically sufficient to allow evaluation of LV diastolic function. RIGHT VENTRICLE: The cavity size was normal. Systolic function was normal. The estimated peak pressure was 32mm Hg. LEFT ATRIUM: The atrium was mildly dilated. RIGHT ATRIUM: The atrium was dilated. ATRIAL SEPTUM: Not well visualized. AORTIC VALVE: Not well visualized. Probably trileaflet. Mobility was not restricted. Doppler: There was no stenosis. Trivial regurgitation. Peak gradient (S): 14mm Hg. MITRAL VALVE: Mobility was not restricted. No echocardiographic evidence for prolapse. Doppler: There was no evidence for stenosis. No significant regurgitation. Valve area by pressure half-time: 2.45cm\S\2. Indexed valve area by pressure half-time: 0.93cm\S\2/m\S\2. Mean gradient (D): 1mm Hg. Peak gradient (D): 3mm Hg. TRICUSPID VALVE: Not well visualized. Mobility was not restricted. Doppler: There was no evidence for stenosis. Trivial regurgitation. Peak gradient (D): 24mm Hg. PULMONIC VALVE: Not well visualized. The valve appears to be grossly normal. Doppler: There was no evidence for stenosis. No significant regurgitation. PERICARDIUM: There was no pericardial effusion. AORTA: Aortic root: The aortic root was normal in size. SYSTEMIC VEINS: Inferior vena cava: The vessel was normal in size. 2D measurements Doppler measurements Left ventricle Left ventricle LVID ED, PLAX 5.8 cm IVRT 97 ms LVID ES, PLAX 4.3 cm Aortic valve FS, endocardial, 27 % Peak jose l, S 184.54 cm/sec PLAX Peak gradient, S 14 mm Hg Major axis ES, A4C 7.2 cm Mitral valve Minor axis ED, A4C 7.2 cm Peak E jose l 81.73 cm/sec Major axis ED, A2C 8.7 cm Peak A jose l 49.59 cm/sec Major axis ES, A2C 6.3 cm Mean jose l, D 38.93 cm/sec LVID, ES 4.3 cm VTI leaflet 31.1 cm LVPW, ED 0.9 cm coapt IVS/LVPW ratio, ED 1.09 Deceleration 309 ms Vol, ED, 1-p A2C 116 ml time Vol, ES, 1-p A2C 62 ml Pressure 90 ms EF, 1-p A2C 53 % half-time Vol ED, 1-p A4C 173 ml Mean gradient, D 1 mm Hg Vol ES, 1-p A4C 79 ml Peak gradient, D 3 mm Hg EF, 1-p A4C 55 % Peak E/A ratio 1.65 SV, 1-p A4C 94 ml Area (PHT) 2.45 cm\S\2 EDV/bsa, 1-p A4C 66 ml/m\S\2 Area/bsa (PHT) 0.93 cm\S\2/m\S\2 ESV/bsa, 1-p A4C 30 ml/m\S\2 Regurg vena 3.0 cm SV/bsa, 1-p A4C 36 ml/m\S\2 contracta Vol ED, 2-p 150 ml Tricuspid valve Vol ES, 2-p 69 ml Peak gradient, D 24 mm Hg EF, 2-p 54 % Regurg peak jose l 244.43 cm/sec SV, 2-p 54 ml Peak RV-RA 24 mm Hg Vol/bsa, ED, 2-p 57 ml/m\S\2 gradient, S Vol/bsa, ES, 2-p 26 ml/m\S\2 SV/bsa, 2-p 20.6 ml/m\S\2 Ventricular septum IVS, ED 0.9 cm LVOT Diam, S 2.0 cm Area 3 cm\S\2 Aorta Root diam 2.9 cm Left atrium AP dim 4.2 cm AP dim index 1.6 cm/m\S\2 SI dim, A4C 6.2 cm Area ES, A4C 26 cm\S\2 Vol, S 89 ml Vol/bsa, S 34 ml/m\S\2 Vol, ES, 1-p A4C 87 ml Vol/bsa, ES, 1-p A4C 33 ml/m\S\2 Vol, ES, 1-p A2C 77 ml Vol/bsa, ES, 1-p A2C 29 ml/m\S\2 Vol, ES, A/L 93 ml Vol/bsa, ES, A/L 35 ml/m\S\2 Right atrium Area, ES 24 cm\S\2 Area, ES, A4C 24 cm\S\2 Right ventricle RVID ED, PLAX 3.0 cm RVID ED 3.0 cm [facility] Echo Labs are accredited with the [employer]reditation Commission - Echocardiography. Prepared and Electronically Authenticated Raman Robles MD Confirmed 03/06/2018 18:50 us Jose Segura MD US ORDERABLES Final Result INTERFACE SYSTEM Refer to clinic/hospital department documented in this encounter Visit Diagnoses Diagnosis Persistent atrial fibrillation (CMS/HCC) Atrial fibrillation Stable angina Other and unspecified angina pectoris ASHD (arteriosclerotic heart disease) Coronary atherosclerosis of unspecified type of vessel, [place] or graft Typical atrial flutter (CMS/HCC) Atrial flutter Morbid obesity with body mass index of 40.0-49.9 ([facility]/HCC) Dyslipidemia Other and unspecified hyperlipidemia 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 (CMS/HCC) 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 (CMS/HCC) Fibromyalgia Mylagia and myositis, unspecified Oxygen dependent Dependence on supplemental oxygen Respiratory illness Persistent atrial fibrillation (CMS/HCC) Atrial fibrillation Stable angina Other and unspecified angina pectoris ASHD (arteriosclerotic heart disease) Coronary atherosclerosis of unspecified type of vessel, [place] or graft Typical atrial flutter (CMS/HCC) Atrial flutter Morbid obesity with body mass index of 40.0-49.9 ([facility]/HCC) Dyslipidemia Other and unspecified hyperlipidemia 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 (CMS/HCC) 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
--- OUTSIDE RECORDS SUMMARY | 2025-02-27 07:31 | XMS_ITS | Encounter Summary ---
Author Organization [facility] Address [address] [place] [address] Care Team Providers [employer] Worker Name Role Phone Farhat Acosta MD Primary Care Provider [phone] Reason for Referral * CT Scan (Routine) - Closed Specialty Diagnoses / Procedures Referred By Contac t Referred To Contact Diagnoses Persistent atrial fibrillation ([facility]/HCC) Stable angina ASHD (arteriosclerotic heart disease) Typical atrial flutter ([facility]) Morbid obesity with body mass index of 40.0-49.9 ([facility]) Fibromyalgia 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 ([facility]/HCC) 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 ([facility]) Dyslipidemia Respiratory illness Oxygen dependent [place] (myocardial infarction) ALONDRA (obstructive sleep apnea) Benign hypertension with CKD (chronic kidney disease) stage III ([facility]) Referral of patient Type 2 diabetes mellitus with other circulatory complication, with long-term current use of insulin ([facility]) Pre-existing type 2 diabetes mellitus during , antepartum Procedures CT CARDIAC CHEST INTERPRETATION Jose Segura MD Referral ID Status Reason Start Date Expiration Date Visits Re quested Visits Authorized [id number] Closed 06/06/2018 07/07/2019 1 1 [place] [employer] Encounter Details Date Type Department Care Team (Latest Contact Info) Description 06/06/2018 Ancillary Orders [facility] Cardiac Thoracic Vascular S[facility] [place] [address] [place] [address] Jose Segura MD NO ADDRESS ON FILE Persistent atrial fibrillation ([facility]); Stable angina; ASHD (arteriosclerotic heart disease); Typical atrial flutter ([facility]); Morbid [place] with body [place] 40.0-49.9 [place] Fibromyalgia; 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 ([facility]); 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 ([facility]); Dyslipidemia; Respiratory illness; Oxygen dependent; [place] (myocardial infarction); ALONDRA (obstructive sleep apnea); Benign hypertension with CKD (chronic kidney disease) stage III [place] Referral of patient; Type 2 diabetes mellitus with other circulatory complication, with long-term current use of insulin [place] Pre-existing type 2 diabetes mellitus during , antepartum Social History Tobacco Use Types Packs/Day Years Used Date Smoking Tobacco: Never Alcohol Use Standard Drinks/Week Comments No 0 (1 standard drink = 0.6 oz pur e alcohol) Comments Unknown Sex and Gender Information Value Date Recorded Sex Assigned at Not on file 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[employer] Gender Identity Not on file Sexual Orientation Not on file documented as of this encounter Plan of Treatment Not on file documented as of this encounter Results * CT CARDIAC CHEST INTERPRETATION (06/06/2018 11:51 AM [employer]) Anatomical Region Laterality Modality Chest Computed Tomogra phy 06/06/2018 11:5 1 AM [employer] Impressions 06/06/2018 3:20 PM [employer] IMPRESSION: Mosaic attenuation is noted that can indicate small airways disease/bronchiolitis, active pneumonitis, chronic pulmonary vascular occlusive disease. Enlarged mediastinal lymph nodes, nonspecific but likely reactive in the absence of a known malignancy. If clinically desired, follow-up CT in three months may be of benefit to document stability. [id number] Narrative 06/06/2018 3:20 PM [employer] CT CARDIAC CHEST INTERPRETATION; Reason For Exam: atrial fib. Diagnosis: Persistent atrial fibrillation COMPARISON: None. TECHNIQUE: Following uneventful administration of 110 mL Isovue 370 intravenous contrast helical scanning was obtained of the chest, and reviewed in soft tissue and lung algorithm. The patient tolerated the procedure and there were no immediate complications. FINDINGS: LUNGS: No focal consolidation. No dominant lung mass or suspicious nodule is seen. Mild mosaic attenuation is noted diffusely. PLEURA: No pneumothorax or pleural effusion. LYMPH NODES: Enlarged mediastinal lymph nodes are noted measuring up to 1.4 cm in short axis (right paratracheal image 21 series 154) [place]: Reported by cardiology HEART: Reported by cardiology OSSEOUS STRUCTURES: The visualized skeletal structures are intact. UPPER ABDOMEN: Included portions of the upper abdomen are unremarkable. Procedure Note Cristobal Worthy MD - 06/06/2018 CT CARDIAC CHEST INTERPRETATION; Reason For Exam: atrial fib. Diagnosis: Persistent atrial fibrillation COMPARISON: None. TECHNIQUE: Following uneventful administration of 110 mL Isovue 370 intravenous contrast helical scanning was obtained of the chest, and reviewed in soft tissue and lung algorithm. The patient tolerated the procedure and there were no immediate complications. FINDINGS: LUNGS: No focal consolidation. No dominant lung mass or suspicious nodule is seen. Mild mosaic attenuation is noted diffusely. PLEURA: No pneumothorax or pleural effusion. LYMPH NODES: Enlarged mediastinal lymph nodes are noted measuring up to 1.4 cm in short axis (right paratracheal image 21 series 154) GREAT VESSELS: Reported by cardiology HEART: Reported by cardiology OSSEOUS STRUCTURES: The visualized skeletal structures are intact. UPPER ABDOMEN: Included portions of the upper abdomen are unremarkable. IMPRESSION: Mosaic attenuation is noted that can indicate small airways disease/bronchiolitis, active pneumonitis, chronic pulmonary vascular occlusive disease. Enlarged mediastinal lymph nodes, nonspecific but likely reactive in the absence of a known malignancy. If clinically desired, follow-up CT in three months may be of benefit to document stability. 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 (CMS/HCC) 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 (CMS/HCC) Dyslipidemia Other and unspecified hyperlipidemia Respiratory illness Oxygen dependent Dependence on supplemental oxygen [place] (myocardial infarction) Old myocardial infarction ALONDRA (obstructive sleep apnea) Obstructive sleep apnea (adult) (pediatric) Benign hypertension with CKD (chronic kidney disease) stage III (CMS/HCC) Benign hypertensive kidney disease with chronic kidney disease stage I through stage IV, or unspecified Referral of patient Referral of patient without examination or treatment Type 2 diabetes mellitus with other circulatory complication, with long-term current use of insulin (CMS/HCC) Pre-existing type 2 diabetes mellitus during , antepartum Persistent atrial fibrillation (CMS/HCC) Atrial fibrillation Stable angina Other and unspecified angina pectoris ASHD (arteriosclerotic heart disease) Coronary atherosclerosis of unspecified type of vessel, [place] or graft Typical atrial flutter (CMS/HCC) Atrial flutter Morbid obesity with body mass index of 40.0-49.9 ([facility]) Fibromyalgia Mylagia and myositis, unspecified 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 (CMS/HCC) 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 (CMS/HCC) Dyslipidemia Other and unspecified hyperlipidemia Respiratory illness Oxygen dependent Dependence on supplemental oxygen [place] (myocardial infarction) Old myocardial infarction ALONDRA (obstructive sleep apnea) Obstructive sleep apnea (adult) (pediatric) Benign hypertension with CKD (chronic kidney disease) stage III (CMS/HCC) Benign hypertensive kidney disease with chronic kidney disease stage I through stage IV, or unspecified Referral of patient Referral of patient without examination or treatment Type 2 diabetes mellitus with other circulatory complication, with long-term current use of insulin ([facility]) Pre-existing type 2 diabetes mellitus during , antepartum documented in this encounter Care Teams [employer] Work[employer] Relationship Specialty Start [place] [address] [place] [id number] PCP - General Family Practice 04/08/18 documented as of this encounter
--- OUTSIDE RECORDS SUMMARY | 2025-02-27 07:31 | XMS_ITS | Encounter Summary ---
Author Organization [facility] Address [address] [place] [address] Care Team Providers Care Cardiac Monitor Technician Name Role Phone Farhat Acosta MD Primary Care Provider [phone] Reason for Referral * Radiology Services (Routine) - Closed Specialty Diagnoses / Procedures Referred By Contac t Referred To Contact Radiology Diagnoses Persistent atrial fibrillation (CMS/HCC) Stable angina ASHD (arteriosclerotic heart disease) Typical atrial flutter ([facility]/HCC) Morbid obesity with body mass index of 40.0-49.9 ([facility]/HCC) Fibromyalgia 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 ([facility]/HCC) 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 ([facility]/HCC) Dyslipidemia Respiratory illness Oxygen dependent [place] (myocardial infarction) ALONDRA (obstructive sleep apnea) Benign hypertension with CKD (chronic kidney disease) stage III ([facility]) Referral of patient Type 2 diabetes mellitus with other circulatory complication, with long-term current use of insulin ([facility]/HCC) Pre-existing type 2 diabetes mellitus during , antepartum Procedures ECHOCARDIOGRAM W/ CONTRAST AGENT ECHO COMPLETE Jose Segura MD [facility] Echo [place] [address] [place] [address] Phone: tel: fax: Referral ID Status Reason Start Date Expiration Date V isits Requested Visits Authorized [id number] Closed SGF [facility] TO SCHEDULE (SGF) 05/15/2018 06/15/2019 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 Encounter Details Date Type Department Care Team (Latest Contact Info) Description 05/30/2018 Ancillary Orders [facility] Cardiac Thoracic Vascular Surg [place] [address] [place] [address] Jose Segura MD NO ADDRESS ON FILE Persistent atrial fibrillation ([facility]); Stable angina; ASHD (arteriosclerotic heart disease); Typical atrial flutter ([facility]); Morbid obesity with body mass index of 40.0-49.9 ([facility]); Fibromyalgia; 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 ([facility]); 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 ([facility]); Dyslipidemia; Respiratory illness; Oxygen dependent; [place] (myocardial infarction); ALONDRA (obstructive sleep apnea); Benign hypertension with CKD (chronic kidney disease) stage III ([facility]); Referral of patient; Type 2 diabetes mellitus with other circulatory complication, with long-term current use of insulin ([facility]); Pre-existing type 2 diabetes mellitus during , antepartum Social History Tobacco Use Types Packs/Day Years Used Date Smoking Tobacco: Never Alcohol Use Standard Drinks/Week Comments No 0 (1 standard drink = 0.6 oz pur e alcohol) Comments Unknown Sex and Gender Information Value Date Recorded Sex Assigned at Not on file 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 Gender Identity Not on file Sexual Orientation Not on file documented as of this encounter Plan of Treatment Not on file documented as of this encounter Results * ECHOCARDIOGRAM W/ CONTRAST AGENT (05/30/2018 2:35 PM POWER HOUSE ENGINEER) EJECTION FRACTION INTERFACE SYSTEM 05/30/2018 1:52 PM POWER HOUSE ENGINEER Narrative INTERFACE SYSTEM - 05/30/2018 5:50 PM [facility] Echocardiography[facility] [address] [place] [address] Transthoracic Echocardiography Patient: Nathen Study ECHO COMPLETE Shauna Gibson ID: Gender: Cookie : 1955 Age: 62 Room: Study 05/30/2018 Pt Outpatient Date: Status: Study 01:52:05 PM [facility] #: [id number] Time: Ordering:Jose Segura MD, VI Interpreting:Yamilka Henley [employer] Panels: Vilma Chen [facility] Indications and History: Persistent atrial fibrillation;Stable angina;ASHD (arteriosclerotic heart disease) ;Typical atrial flutter;Morbid obesity with body mass index of 40.0-49.9; Fibromyalgia;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 Labs, prior tests, procedures, and surgery: Echocardiography (03/05/2018). EF was 55-60% and PA pressure was 32 (systolic). Catheterization (2011). EF was 50%. Patent stent. Summary and Conclusion: - Suboptimal TTE due to poor acoustic windows. - Left ventricle: The cavity size was normal. Wall thickness was increased in a pattern of mild LVH. Systolic function was normal. The visually estimated ejection fraction was = 55%. Images were inadequate for LV wall motion assessment. The study is not technically sufficient to allow evaluation of LV diastolic function. - Right ventricle: Not well visualized. Systolic function was difficult to assess and probably normal. - Valve assessment is limited by image quality. Comparison: Compared to the prior study, there has been no significant interval change. Procedure information: Comparison was made to the study of February 2018. Study status: Routine. Procedure: Contrast study performed to evaluate left ventricular endocardial borders due to suboptimal non-contrast images. Initial setup. Intravenous access was obtained. Transthoracic echocardiography. Image quality was adequate. The study was technically difficult due to poor acoustic window availability and body habitus. Scanning was performed from the parasternal, apical, subcostal, and suprasternal notch acoustic windows. Intravenous contrast (Definity) was administered. There were no complications. There were no contrast reactions. Study components: M-mode, 2D, complete spectral Doppler, and color Doppler. Height: 172.7cm. Height: 68in. Weight: 137.9kg. Weight: 303.4lb. BMI: 46.2kg/m\S\2. BSA: 2.65m\S\2. Study date: 05/30/2018. Study time: 01:52 PM. Location: Echo laboratory. Cardiac Anatomy: LEFT VENTRICLE: The cavity size was normal. Wall thickness was increased in a pattern of mild LVH. Systolic function was normal. The visually estimated ejection fraction was = 55%. Images were inadequate for LV wall motion assessment. The study is not technically sufficient to allow evaluation of LV diastolic function. RIGHT VENTRICLE: Not well visualized. Systolic function was difficult to assess and probably normal. LEFT ATRIUM: Poorly visualized. RIGHT ATRIUM: Poorly visualized. ATRIAL SEPTUM: Not well visualized. AORTIC VALVE: Not well visualized. Doppler: There was no stenosis. Trivial regurgitation. Peak velocity ratio of LVOT to aortic valve: 0.8. Peak gradient (S): 8mm Hg. MITRAL VALVE: Mobility was not restricted. Doppler: There was no evidence for stenosis. Trivial regurgitation. TRICUSPID VALVE: Not well visualized. Doppler: No significant regurgitation. PULMONIC VALVE: Not well visualized. Doppler: Physiologic regurgitation. PERICARDIUM: There was no pericardial effusion. AORTA: Aortic root: The visualized portion of the aortic root was normal in size. Aortic arch: The aortic arch was poorly visualized. SYSTEMIC VEINS: Inferior vena cava: The vessel was normal in size. The respirophasic diameter changes were in the normal range (> 50%), consistent with normal central venous pressure. 2D measurements Doppler measurements Left ventricle LVOT LVID ED, PLAX 5.2 cm Peak jose l, S 111.21 cm/sec LVID ES, PLAX 3.1 cm Peak gradient, S 5 mm Hg FS, 40 % Aortic valve endocardial, Peak jose l, S 138.59 cm/sec PLAX Peak gradient, S 8 mm Hg FS, PLAX chord 40 % Peak jose l ratio, 0.8 LVPW, ED 1.2 cm LVOT/AV IVS/LVPW ratio, 1 ED Vol, ED 129 ml Vol, ES 38 ml Qs 5.5 L/min Vol/bsa, ED 49 ml/m\S\2 Vol/bsa, ES 14 ml/m\S\2 Qs/bsa 2.1 L/(min-m\S\2) Vol, ES, 1-p 100 ml A2C EF, 1-p A2C 66 % Stroke vol, 1-p 91 ml A2C EF, 1-p A4C 62 % SV, 1-p A4C 123 ml SV/bsa, 1-p A4C 47 ml/m\S\2 EF, 2-p 64 % SV, 2-p 111 ml SV/bsa, 2-p 42 ml/m\S\2 Ventricular septum IVS, ED 1.2 cm Aorta Root diam 2.9 cm Left atrium AP dim 4.6 cm AP dim index 1.7 cm/m\S\2 SI dim, A4C 5.9 cm Vol, ES, 1-p 53 ml A4C Vol/bsa, ES, 20 ml/m\S\2 1-p A4C Right atrium SI dim, ES, A4C 5.3 cm Right ventricle RVID ED, PLAX 3.4 cm [facility] are accredited with the Intersocietal Accreditation Commission - Echocardiography. Prepared and Electronically Authenticated Yamilka Henley Confirmed 05/30/2018 17:50 Procedure Note Yamilka Henley MD - 05/30/2018 [facility] Echocardiography[facility] [address] [place] [address] Transthoracic Echocardiography Patient: Nathen Study ECHO COMPLETE Shauna Gibson ID: Gender: F : 1955 Age: 62 Room: Study 05/30/2018 Pt Outpatient Date: Status: Study 01:52:05 PM CSN #: [id number] Time: Ordering:Jose Segura MD, RPVI Interpreting:Yamilka Henley [employer] Panels: Vilma Chen [facility] Indications and History: Persistent atrial fibrillation;Stable angina;ASHD (arteriosclerotic heart disease) ;Typical atrial flutter;Morbid obesity with body mass index of 40.0-49.9; Fibromyalgia;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 Labs, prior tests, procedures, and surgery: Echocardiography (03/05/2018). EF was 55-60% and PA pressure was 32 (systolic). Catheterization (2011). EF was 50%. Patent stent. Summary and Conclusion: - Suboptimal TTE due to poor acoustic windows. - Left ventricle: The cavity size was normal. Wall thickness was increased in a pattern of mild LVH. Systolic function was normal. The visually estimated ejection fraction was = 55%. Images were inadequate for LV wall motion assessment. The study is not technically sufficient to allow evaluation of LV diastolic function. - Right ventricle: Not well visualized. Systolic function was difficult to assess and probably normal. - Valve assessment is limited by image quality. Comparison: Compared to the prior study, there has been no significant interval change. Procedure information: Comparison was made to the study of February 2018. Study status: Routine. Procedure: Contrast study performed to evaluate left ventricular endocardial borders due to suboptimal non-contrast images. Initial setup. Intravenous access was obtained. Transthoracic echocardiography. Image quality was adequate. The study was technically difficult due to poor acoustic window availability and body habitus. Scanning was performed from the parasternal, apical, subcostal, and suprasternal notch acoustic windows. Intravenous contrast (Definity) was administered. There were no complications. There were no contrast reactions. Study components: M-mode, 2D, complete spectral Doppler, and color Doppler. Height: 172.7cm. Height: 68in. Weight: 137.9kg. Weight: 303.4lb. BMI: 46.2kg/m\S\2. BSA: 2.65m\S\2. Study date: 05/30/2018. Study time: 01:52 PM. Location: Echo laboratory. Cardiac Anatomy: LEFT VENTRICLE: The cavity size was normal. Wall thickness was increased in a pattern of mild LVH. Systolic function was normal. The visually estimated ejection fraction was = 55%. Images were inadequate for LV wall motion assessment. The study is not technically sufficient to allow evaluation of LV diastolic function. RIGHT VENTRICLE: Not well visualized. Systolic function was difficult to assess and probably normal. LEFT ATRIUM: Poorly visualized. RIGHT ATRIUM: Poorly visualized. ATRIAL SEPTUM: Not well visualized. AORTIC VALVE: Not well visualized. Doppler: There was no stenosis. Trivial regurgitation. Peak velocity ratio of LVOT to aortic valve: 0.8. Peak gradient (S): 8mm Hg. MITRAL VALVE: Mobility was not restricted. Doppler: There was no evidence for stenosis. Trivial regurgitation. TRICUSPID VALVE: Not well visualized. Doppler: No significant regurgitation. PULMONIC VALVE: Not well visualized. Doppler: Physiologic regurgitation. PERICARDIUM: There was no pericardial effusion. AORTA: Aortic root: The visualized portion of the aortic root was normal in size. Aortic arch: The aortic arch was poorly visualized. SYSTEMIC VEINS: Inferior vena cava: The vessel was normal in size. The respirophasic diameter changes were in the normal range (> 50%), consistent with normal central venous pressure. 2D measurements Doppler measurements Left ventricle LVOT LVID ED, PLAX 5.2 cm Peak jose l, S 111.21 cm/sec LVID ES, PLAX 3.1 cm Peak gradient, S 5 mm Hg FS, 40 % Aortic valve endocardial, Peak jose l, S 138.59 cm/sec PLAX Peak gradient, S 8 mm Hg FS, PLAX chord 40 % Peak jose l ratio, 0.8 LVPW, ED 1.2 cm LVOT/AV IVS/LVPW ratio, 1 ED Vol, ED 129 ml Vol, ES 38 ml Qs 5.5 L/min Vol/bsa, ED 49 ml/m\S\2 Vol/bsa, ES 14 ml/m\S\2 Qs/bsa 2.1 L/(min-m\S\2) Vol, ES, 1-p 100 ml A2C EF, 1-p A2C 66 % Stroke vol, 1-p 91 ml A2C EF, 1-p A4C 62 % SV, 1-p A4C 123 ml SV/bsa, 1-p A4C 47 ml/m\S\2 EF, 2-p 64 % SV, 2-p 111 ml SV/bsa, 2-p 42 ml/m\S\2 Ventricular septum IVS, ED 1.2 cm Aorta Root diam 2.9 cm Left atrium AP dim 4.6 cm AP dim index 1.7 cm/m\S\2 SI dim, A4C 5.9 cm Vol, ES, 1-p 53 ml A4C Vol/bsa, ES, 20 ml/m\S\2 1-p A4C Right atrium SI dim, ES, A4C 5.3 cm Right ventricle RVID ED, PLAX 3.4 cm [facility] Echo Labs are accredited with the Intersocietal Accreditation Commission - Echocardiography. Prepared and Electronically Authenticated Yamilka Henley Confirmed 05/30/2018 17:50 us Jose Segura MD US ORDERABLES Final Result INTERFACE SYSTEM Refer to clinic/hospital department documented in this encounter Visit Diagnoses Diagnosis Persistent atrial fibrillation ([facility]/HCC) Atrial fibrillation Stable angina Other and unspecified angina pectoris ASHD (arteriosclerotic heart disease) Coronary atherosclerosis of unspecified type of vessel, ute or graft Typical atrial flutter ([facility]/HCC) Atrial flutter Morbid obesity with body mass index of 40.0-49.9 ([facility]) Fibromyalgia Mylagia and myositis, unspecified 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 ([facility]) 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 ([facility]) Dyslipidemia Other and unspecified hyperlipidemia Respiratory illness Oxygen dependent Dependence on supplemental oxygen [place] (myocardial infarction) Old myocardial infarction ALONDRA (obstructive sleep apnea) Obstructive sleep apnea (adult) (pediatric) Benign hypertension with CKD (chronic kidney disease) stage III ([facility]) Benign hypertensive kidney disease with chronic kidney disease stage I through stage IV, or unspecified Referral of patient Referral of patient without examination or treatment Type 2 diabetes mellitus with other circulatory complication, with long-term current use of insulin ([facility]) Pre-existing type 2 diabetes mellitus during , antepartum Persistent atrial fibrillation ([facility]) Atrial fibrillation Stable angina Other and unspecified angina pectoris ASHD (arteriosclerotic heart disease) Coronary atherosclerosis of unspecified type of vessel, ute or graft Typical atrial flutter ([facility]/HCC) Atrial flutter Morbid obesity with body mass index of 40.0-49.9 ([facility]) Fibromyalgia Mylagia and myositis, unspecified 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 ([facility]) 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 ([facility]) Dyslipidemia Other and unspecified hyperlipidemia Respiratory illness Oxygen dependent Dependence on supplemental oxygen [place] (myocardial infarction) Old myocardial infarction ALONDRA (obstructive sleep apnea) Obstructive sleep apnea (adult) (pediatric) Benign hypertension with CKD (chronic kidney disease) stage III ([facility]) Benign hypertensive kidney disease with chronic kidney disease stage I through stage IV, or unspecified Referral of patient Referral of patient without examination or treatment Type 2 diabetes mellitus with other circulatory complication, with long-term current use of insulin ([facility]) Pre-existing type 2 diabetes mellitus during , antepartum documented in this encounter Care Teams Cardiac Monitor Technician Relationship Specialty Start Date End Date Farhat Acosta MD [address] [place] [phone] PCP - General Family Practice 04/08/18 documented as of this encounter
--- OUTSIDE RECORDS SUMMARY | 2025-02-27 07:31 | XMS_ITS | Clinical Summary ---
Author Organization [facility] Address [address] [place] [address] Care Team Providers Care Arson And Bomb Investigator Name Role Phone Farhat Acosta MD Primary Care Provider [phone] Allergies Active Allergy Reactions Criticality Noted Date Comments Amiodarone Renal Dysfunctions Medium 07/31/2018 Erythromycin Rash Low 04/26/2009 Meperidine (Pf) Nausea and Vomiting Low 04/26/2009 Morphine Unknown 04/24/2009 Oxycodone Mpp-Twqozfmxy-Ttn Nausea and Vomiting Low 04/26/2009 Oxycodone-Acetaminophen Nausea and Vomiting Low 02/2009 Penicillins Rash Low 04/26/2009 Shellfish Containing Products Swelling Low 2008 Medications levothyroxine 50 mcg tablet Take 50 mcg by mouth daily facilities plant engineer. Active pregabalin (LYRICA) 150 mg Capsule Take 150 mg by mouth daily. Active allopurinol (ZYLOPRIM) 300 mg tablet Take 300 mg by mouth daily. Active metoprolol tartrate (LOPRESSOR) 25 mg tablet Take 25 mg by mouth 2 times daily. Active simvastatin (ZOCOR) 80 mg tablet Take 80 mg by mouth late in the day. Active apixaban (ELIQUIS) 5 mg tablet Take 5 mg by mouth 2 times daily. Active insulin NPH hum/reg insulin hm (HUMULIN 70/30 PEN SUBCUT) Inject by subcutaneous injection 60 units in AM, 80 units noon, 60 units in PM. Active clopidogrel (PLAVIX) 75 mg Tablet Take 75 mg by mouth. Active PROAIR HFA 90 mcg/actuation inhaler Take 2 Puffs by inhalation every 6 hours as needed for Shortness of Breath . 8 Active HYDROcodone-federico taminophen (NORCO) 5-325 mg tablet Take 2 Tablets by mouth every 8 hours as needed . 8 Active OLANZapine (ZyPREXA) 5 mg tablet Take 5 mg by mouth daily at bedtime . Active sertraline (ZOLOFT) 100 mg tablet Take 100 mg by mouth daily at bedtime . 8 Active docusate sodium (COLACE) 100 mg capsule Take 1 Capsule (100 mg) by mouth 2 times daily. 9 Active polyethylene glycol (MIRALAX) 17 gram Powder in Packet Take 1 Packet (17 Grams) by mouth daily. 9 Active aspirin (FANI CHEWABLE) 81 mg Tablet, Chewable Take 1 Tablet (81 mg) by mouth daily. Active furosemide (LASIX) 40 mg tablet Take 1 Tablet (40 mg) by mouth two times daily, 7 hours apart. 60 Tablet 4 9 Active sodium phosphates (ENEMA DISPOSABLE) 19-7 gram/118 mL Enema Insert 133 mL by rectum one time only. Active bisacodyl (DULCOLAX) 10 mg Suppository Insert 10 mg by rectum 1 time daily as needed for Constipation. Active ferrous sulfate 325 mg (65 mg iron) tablet Take 325 mg by mouth 2 times daily. Active diltiaZEM (CARDIZEM CD) 120 mg Controlled Delivery 24 hour capsule Take 120 mg by mouth daily. Active insulin NPH-regular (NovoLIN 70-30 FlexPen U-100) 100 unit/mL (70-30) pen syringe Inject 80 Units by subcutaneous injection daily before breakfast. Active insulin NPH-regular (NovoLIN 70-30 FlexPen U-100) 100 unit/mL (70-30) pen syringe Inject 80 Units by subcutaneous injection daily with lunch. Active insulin NPH-regular (HUMULIN 70-30,NOVOLIN 70-30) 100 unit/mL (70-30) pen syringe Inject 55 Units by subcutaneous injection. Active LORazepam (ATIVAN) 1 mg tablet Take 1 mg by mouth 3 times daily as needed for Anxiety. Active potassium chloride (KLOR-CON) 20 mEq Extended Release tablet Take 20 mEq by mouth 2 times daily. Active sodium chloride (SALINE NASAL MIST) 0.65 % Aerosol, [place] Administer 2 Sprays in each nostril PRN for Allergies. Active Sodium Chloride-Aloe Vera (AYR SALINE GEL) [place], Non-Aerosol Administer 1 [place] in each nostril 1 time daily as needed. Active furosemide (LASIX) 10 mg/mL Solution Take 10 mg by mouth daily. Active furosemide (LASIX) 20 mg tablet Take 20 mg by mouth 2 times daily. 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 01/24/2018 ASHD (arteriosclerotic heart disease) 01/23/2018 ALONDRA (obstructive sleep apnea) 01/23/2018 Benign hypertension with CKD (chronic kidney disease) stage III 01/23/2018 [place] (myocardial infarction) 01/23/2018 Dyslipidemia 01/23/2018 Fibromyalgia 01/23/2018 Persistent atrial fibrillation 01/23/2018 Stable angina 01/23/2018 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 01/23/2018 Referral of patient 01/18/2018 Overview (01/18/2018): Symptomatic A-Fib, eval for possible ablation Diabetes mellitus Resolved Problems Problem Noted Date Diagnosed Date Resolved Date Paroxysmal atrial fibrillation 01/23/2018 01/23/2018 Typical atrial flutter 01/23/201808/02 Morbid obesity with body mas s index of 40.0-49.9 01/23/2018 08/02/2018 Immunizations Immunization Administration Dates Next Due Influenza Seasonal Unspecified Formulation IM Social History Tobacco Use Types Packs/Day Years Used Date Smoking Tobacco: Never Tobacco Cessation:Counseling Given: No Alcohol Use Standard Drinks/Week Comments No 0 (1 standard drink = 0.6 oz pur e alcohol) Comments No Sex and Gender Information Value Date Recorded Sex Assigned at Not on file 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VARNISH REMOVER Gender Identity Not on file Sexual Orientation Not on file Last Filed Vital Signs Vital Sign Reading Time Taken Comments Blood Pressure 130/72 09/26/2018 11:17 AM CDT Pulse 84 09/26/2018 11:17 AM CDT Temperature 35.7 C (96.2 F) 08/05/2018 10:49 AM VARNISH REMOVER Respiratory Rate 18 08/05/2018 10:49 AM VARNISH REMOVER Oxygen Saturation 98% 08/05/2018 10:49 AM VARNISH REMOVER Inhaled Oxygen Concentration - - Weight 138.8 kg (306 lb) 09/26/2018 11:17 AM CDT Height 172.7 cm (5' 8 ) 09/26/2018 11:17 AM CDT Body Mass Index 46.53 09/26/2018 11:17 AM CDT Plan of Treatment Health Maintenance Due Date Last Done Comments DIABETES ANNUAL FOOT EXAM 1972 DIABETES ANNUAL RETINAL EXAM 1972 DIABETES MICROALBUMIN ANNUAL SCREEN 1972 DTAP/TDAP/TD VACCINES (1 - Tdap) 1973 PNEUMOCOCCAL VACCINE 50+ YEA RS (1 of 2 - PCV) 1973 BREAST CANCER SCREENING 1994 COLORECTAL SCREENING 10/30/1999 Colorectal Cancer Screening 10/30/1999 FIT-DNA Q 3 years 10/30/1999 FIT/FOBT Q 1 year 10/30/1999 Flex Sig/CT Colonography Q 5 years 10/30/1999 ZOSTER VACCINE (1 of 2) 2004 LDL CHOLESTEROL ANNUAL 04/24/2010 04/24/2009 RSV VACCINE (60+ or ) (1 - Risk 60-74 years 1-dose series) 2014 DIABETES HBA1C Q 6 MONTHS 01/28/2019 07/31/2018, OSTEOPOROSIS SCREENING 10/30/2019 INFLUENZA VACCINE (#1) 2025 04/03/2018 Procedures Procedure Name Priority Date/Time Associated Diagnosis Comments HEMOGLOBIN A1C Routine 07/31/2018 11:08 AM VARNISH REMOVER Persistent atrial fibrillation (CMS/HCC) Stable angina ASHD (arteriosclerotic heart disease) Typical atrial flutter (CMS/HCC) Morbid obesity with body mass index of 40.0-49.9 (CMS/HCC) Fibromyalgia 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) Referral of patient Type 2 diabetes mellitus with other circulatory complication, with long-term current use of insulin ([facility]) LIPID PANEL Routine 04/24/2009 5:43 AM VARNISH REMOVER from Last 3 Months or Most Recently Relevant to Health Maintenance Results * (ABNORMAL) HEMOGLOBIN A1C (07/31/2018 11:08 AM VARNISH REMOVER) HEMOGLOBIN A1C 9.3(H) 4.0 - 6.0 % 07/31/2018 2:04 PM VARNISH REMOVER [facility] EST. AVG GLUCOSE, A1C 220 mg/dL 07/31/2018 2:[address] [facility] Blood Venipuncture / Unknown 07/31/2018 11:08 AM VARNISH REMOVER 07/31/2018 12:23 PM VARNISH REMOVER Narrative [facility] - 07/31/2018 2:04 PM VARNISH REMOVER HGB A1C INTERPRETATION NORMAL: <5.7% PRE-DIABETES: 5.7 - 6.4% DIABETES: 6.5% OR GREATER us Jose Segura MD CHEMISTRY ORDERABLES F inal Result [facility] CLIA# [id number] [address] [place] [address] * (ABNORMAL) LIPID PANEL (04/24/2009 5:43 AM VARNISH REMOVER) CHOLESTEROL 196 0 - 200 mg/dL [facility] TRIGLYCERIDE 156(H) 0 - 150 mg/dL [facility] HDL 44 40 - 60 mg/dL [facility] LDL CALCULATED 121(H) 0 - 100 mg/dL [facility] Comment: Calculated LDL Reference: <100 Optimal 100-129 Near Optimal 130-159 Borderline High >160 High Risk CALCULATED TOTAL CHOLESTEROL TO HDL RATIO 4.45(H) 3.27 - 4.44 [facility] Blood specimen (specimen) 04/24/2009 5:43 AM VARNISH REMOVER 04/24/2009 5:43 AM VARNISH REMOVER Narrative INTERFACE SYSTEM - 04/24/2009 8:37 AM VARNISH REMOVER FASTING Sander Segura MD CHEMISTRY ORDER MITCHELL Edited INTERFACE SYSTEM Refer to clinic/hospital department [facility] CLIA# [id number] [address] [place] [address] from Last 3 Months or Most Recently Relevant to Health Maintenance Insurance [place] Member Subscriber Plan / Payer (Ef fective 2017-Present) Name:Shauna Sena Relation to Subscriber:Self Name:Nathen Shauna L Payer ID:[id number] Group ID:Not on file Type:Medicaid Address: [address] Advance Directives For more information, please contact: [phone] * Full Code (Latest Code Status on File) Date Activated Date Inactivated Comments 08/01/2018 4:26 PM 08/05/2018 5:45 PM * Full Code Date Activated Date Inactivated Comments 08/01/2018 5:09 AM 08/01/2018 4:25 PM * Full Code Date Activated Date Inactivated Comments 04/26/2009 3:35 PM 04/28/2009 2:07 PM * Full Code Date Activated Date Inactivated Comments 04/25/2009 9:38 AM 04/26/2009 3:35 PM Care Teams Arson And Bomb Investigator Relationship Specialty Start Date End Date Farhat Acosta MD [address] [place] [id number] PCP - General Family Practice 04/08/18
--- OUTSIDE RECORDS SUMMARY | 2025-02-27 07:31 | XMS_ITS | Clinical Summary ---
Author Organization [employer] Address [address] [facility] Attn: Epic Prelude ADT [place] [address] Care Team Providers Care Signal Engineer Name Role Phone Farhat Acosta MD Primary Care Provider [phone] Allergies Active Allergy Reactions Criticality Noted Date Comments Amiodarone Renal Dysfunctions Medium 07/31/2018 Empagliflozin Other (See Comments) 08/20/2024 Yeast infections Erythromycin Rash Low 04/26/2009 Meperidine (Pf) Nausea and Vomiting Low 04/26/2009 Morphine Unknown 04/24/2009 Oxycodone Mpn-Vqbzeknkw-Tla Nausea and Vomiting Low 04/26/2009 Oxycodone-Acetaminophe n Nausea and Vomiting Low 04/26/2009 Penicillins Rash Low 04/26/2009 Shellfish Containing Products Swelling Low 04/24/2009 Medications OLANZapine (ZyPREXA) 5 mg tablet Take 5 mg by mouth daily at bedtime . 8 Active sertraline (ZOLOFT) 100 mg tablet Take 100 mg by mouth daily at bedtime . 8 Active docusate sodium (COLACE) 100 mg capsule Take 1 Capsule (100 mg) by mouth 2 times daily. 9 Active ferrous sulfate 325 mg (65 mg iron) tablet Take 325 mg by mouth 2 times daily. 9 Active sodium chloride (OCEAN) 0.65 % Aerosol, [place] Administer 2 Sprays in each nostril PRN for Allergies. 9 Active polyethylene glycol (MIRALAX) 17 gram Powder in Packet Take 1 Packet (17 Grams) by mouth daily. 9 Active bisacodyL (DULCOLAX) 10 mg Suppository Insert 10 mg by rectum 1 time daily as needed for Constipation. 9 Active Sodium Chloride-Aloe Vera [place], Non-Aerosol Administer 1 [place] in each nostril 1 time daily as needed. 9 Active diltiaZEM (CARDIZEM CD) 120 mg Controlled Delivery 24 hour capsule Take 120 mg by mouth daily. 9 Active potassium chloride (KLOR-CON) 20 mEq Extended Release tablet Take 20 mEq by mouth 2 times daily. 9 Active albuterol sulfate (ProAir HFA) 90 mcg/Actuation inhaler Take 2 Puffs by inhalation every 6 hours as needed for Shortness of Breath . 8 Active pregabalin (LYRICA) 150 mg Capsule Take 150 mg by mouth daily. 8 Active levothyroxine 50 mcg tablet Take 50 mcg by mouth daily lens cutter. 8 Active apixaban (ELIQUIS) 5 mg tablet Take 5 mg by mouth 2 times daily. 8 Active allopurinoL (ZYLOPRIM) 300 mg tablet Take 300 mg by mouth daily. 8 Active clopidogreL (PLAVIX) 75 mg Tablet Take 1 Tablet (75 mg) by mouth daily. 30 Tablet 11 5 08/23/19 26 Active nitroglycerin (NITROSTAT) 0.4 mg Tablet, Sublingual Place 1 Tablet (0.4 mg) under tongue every 5 minutes as needed for Chest Pain. 20 Tablet 5 Active insulin NPH-regular (HUMULIN 70-30,NOVOLIN 70-30) 100 unit/mL (70-30) pen syringe Inject 80 Units by subcutaneous injection 2 times daily before meals. 3 mL 1 5 Active naloxone (NARCAN) 4 mg/spray [place], Non-Aerosol EMERGENCY USE ONLY: Administer 1 spray (4 mg) in one nostril one time. May repeat in alternating nostrils every 2-3 min until responsive or EMS arrives. 2 Each 3 5 Active Active Problems Problem Noted Date Diagnosed Date GEORGES (acute kidney injury) 08/25/2024 Angina pectoris, unspecified 08/20/2024 Elevated troponin level not due myocardial infar ction 08/20/2024 Acute on chronic heart failu re with preserved ejection fraction (HFpEF) 08/20/2024 History of coronary artery stent placement 08/20 Chest pain 08/19/2024 Coronary artery disease invo lving [place] coronary artery of [place] heart with unstable angina pectoris 08/19/2024 Acute coronary syndrome 08/19/2024 S/P ablation of atrial fibrillation 08/02/2018 Atypical Atrial Flutter 08/02/2018 Morbid obesity with body mass index of 40.0-49.9 08/01/2018 Pre-existing type 2 diabetes mellitus during , antepartum 05/15/2018 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 01/24/2018 ALONDRA (obstructive sleep apnea) 01/23/2018 Dyslipidemia 01/23/2018 ASHD (arteriosclerotic heart disease) 01/23/2018 [place] (myocardial infarction) 01/23/2018 Stage 3b chronic kidney disease 01/23/2018 Fibromyalgia 01/23/2018 Stable angina 01/23/2018 Persistent atrial fibrillation 01/23/2018 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 01/23/2018 Referral of patient 01/18/2018 Overview (10/14/2020): Symptomatic A-Fib, eval for possible ablation Diabetes mellitus Resolved Problems Problem Noted Date Diagnosed Date Resolved Date Morbid obesity with body mas s index of 40.0-49.9 01/23/2018 08/02/2018 Paroxysmal atrial fibrillation 01/23/2018 01/23/2018 Typical atrial flutter 01/23/201808/02 Encounters Date Type Department Care Team Description 02/04/2025 External Device Data [facility] ABSTRACTION Provider, Abstract 02/03/2025 External Device Data [facility] ABSTRACTION Provider, Abstract 12/23/2024 External Device Data [place] ABSTRACTION Provider, Abstract from Last 3 Months Immunizations Immunization Administration Dates Next Due Influenza Seasonal Unspecified Formulation IM Social History Tobacco Use Types Packs/Day Years Used Date Smoking Tobacco: Never Smokeless Tobacco: Never Tobacco Cessation:Counseling Given: Not Answered Alcohol Use Standard Drinks/Week Comments No 0 (1 standard drink = 0.6 oz pur e alcohol) Feeling Safe Answer Date Recorded Are you in a relationship wi th someone who hurts you emotionally and/or physically? No 08/19/2024 Food Insecurity Answer Date Recorded Patient needs follow up regardin 10/20/2024 Transportation Needs Answer Date Record ed Patient needs follow up regardin 10/20/2024 Housing Stability Answer Date Recorded Social/Environmental Concerns No concerns Utility Needs Answer Date Recorded Patient needs follow up regardin 10/20/2024 Comments No Sex and Gender Information Value Date Recorded Sex Assigned at Not on file Legal Sex Female 12:45 AM DESKTOP PUBLISHING SPECIALIST Gender Identity Not on file Sexual Orientation Not on file Last Filed Vital Signs Vital Sign Reading Time Taken Comments Blood Pressure 105/56 08/27/2024 12:46 PM CDT Pulse 77 08/27/2024 12:46 PM CDT Temperature 36.2 C (97.2 F) 08/27/2024 12:46 PM CDT Respiratory Rate 18 08/27/2024 12:46 PM CDT Oxygen Saturation 100% 08/27/2024 12:46 PM CDT Inhaled Oxygen Concentration - - Weight 135.6 kg (299 lb) 08/27/2024 3:06 AM CDT Height 172.7 cm (5' 8 ) 08/19/2024 9:30 PM DESKTOP PUBLISHING SPECIALIST Body Mass Index 45.46 08/19/2024 9:30 PM DESKTOP PUBLISHING SPECIALIST Plan of Treatment Health Maintenance Due Date [...] 10/30/1999 ZOSTER VACCINE (1 of 2) 2004 RSV VACCINE (60+ or ) (1 - Risk 60-74 years 1-dose series) 2014 OSTEOPOROSIS SCREENING 10/30/2019 DIABETES HBA1C Q 6 MONTHS 01/27/20202019, 07/31/2018, 07/31/2018, Additional history exists INFLUENZA VACCINE (#1) 2025 04/03/2018 LDL CHOLESTEROL ANNUAL 08/24/2025 08/24/2024 Medical Devices Implanted Type Area Medical Customer Service Representative Device Identifier Shelf Expiration Date Model / Serial / Lot Stent Orsiro Cora 2.5x15mm Ultthn Drug Eluting [id number] - [id number] Implanted:Qty: 1 on 08/26/2024 by Naldo Merritt MD at [facility] Stent Left: Coronary [employer] [id number] 02/04/2026 [id number] / / [id number] Stent Orsiro Cora 2.5x18mm Ultthn Drug Eluting [id number] - [id number] Implanted:Qty: 1 on 08/26/2024 by Naldo Merritt MD at [facility] Stent Left: Coronary [employer] [id number] 02/18/2026 [id number] / / [id number] Procedures Procedure Name Priority Date/Time Associated Diagnosis Comments LIPID PANEL Routine 08/24/2024 6:21 AM CDT HEMOGLOBIN A1C Routine 07/31/2018 11:08 AM DESKTOP PUBLISHING SPECIALIST from Last 3 Months or Most Recently Relevant to Health Maintenance Results * (ABNORMAL) LIPID PANEL (08/24/2024 6:21 AM CDT) CHOLESTEROL 124 <200 mg/dL 08/24/2024 1:03 PM T [facility] TRIGLYCERIDE 153(H) <150 mg/dL 08/24/2024 1:03 PM T [facility] HDL 37(L) 40 - 59 mg/dL 08/24/2024 1:03 PM T [facility] LDL CALCULATED 56 <100 mg/dL 08/24/2024 1:03 PM T [facility] NON-HDL CHOLESTEROL 87 <130 mg/dL 08/24/2024 1:03 PM [facility] Blood Venipuncture / Unknown 08/24/2024 6:21 AM CDT 08/24/2024 7:13 AM CDT [facility] - 08/24/2024 1:03 PM CDT TOTAL CHOLESTEROL mg/dL Desirable <200 Borderline high 200-239 High >=240 TRIGLYCERIDES mg/dL Normal <150 Borderline high 150-199 High 200-499 Very high >=500 HDL CHOLESTEROL mg/dL Low <40 Normal 40-59 Desirable >=60 NON HDL CHOLESTEROL mg/dL Optimal <130 Near Optimal 130-159 Borderline High 160-189 Very High >=190 CALCULATED LDL mg/dL LDL <70, OPTIMAL if have Atherosclerotic cardiovascular disease (ASCVD) or intermediate or higher (>7.5%) 10 year risk of ASCVD including most adults with diabetes. LDL <100, Optimal in adult patients with low (<7.5%) 10 year ASCVD risk LDL 100-160, Suboptimal LDL >160, High LDL >190, Very high LDL calculated using the Friedewald equation. ATPIII Guidelines Reference Ranges for Lipid Panels (NCEP/AMA) . us Clem Travis PA-C CHEMISTRY ORDERABLES Final Result Performing Organization Address [facility] Co de Phone Number [facility] CLIA # [id number] [address] [place] [address] * (ABNORMAL) HEMOGLOBIN A1C (07/31/2018 11:08 AM DESKTOP PUBLISHING SPECIALIST) HEMOGLOBIN A1C 9.3(H) 4.0 - 6.0 % 07/31/2018 2:04 PM [facility] EST. AVG GLUCOSE, A1C 220 mg/dL 07/31/2018 2:04 PM [facility] Blood Venipuncture / Unknown 07/31/2018 11:08 AM DESKTOP PUBLISHING SPECIALIST 07/31/2018 12:23 PM DESKTOP PUBLISHING SPECIALIST Narrative [facility] - 07/31/2018 2:04 PM DESKTOP PUBLISHING SPECIALIST HGB A1C INTERPRETATION NORMAL: <5.7% PRE-DIABETES: 5.7 - 6.4% DIABETES: 6.5% OR GREATER us Jose Segura MD CHEMISTRY ORDERABLES F inal Result Performing Organization Address [facility] Co de Phone Number [facility] CLIA# [id number] [address] [place] [address] [facility] CLIA# [id number] [address] [place] [address] from Last 3 Months or Most Recently Relevant to Health Maintenance Insurance MEDICAID [place] [facility] Advance Directives For more information, please contact: [phone] Documents on File Type Date Recorded 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
[2025-02-27] MEDS: ferrous sulfate EC 325 mg Tablet PO ×2 (08:27→17:31)
[2025-02-27] MEDS: insulin glargine 100 units/1 mL 20 UNIT SUBCUT ×2 (08:28→17:31)
--- NOTE | 2025-02-27 09:35 | P.PN_ITS ---
<Statement entered by Sylvie Hightower MD - 02/27/25 20:01> Patient was evaluated and cared for in conjunction with an advanced practice practitioner. I personally examined the patient and reviewed the chart and all pertinent data including imaging, telemetry, and laboratory results. I discussed the patient in detail with the advanced practice practitioner. Please see their note for complete H&P testing result and agreed upon plan of care for the patient. Subjective 2 Subjective: She has had several pauses around 5 seconds in duration which are symptomatic with dizziness, however now she is in atrial fibrillation with RVR, ventricular rate 117 bpm. Afternoon update: She had recurrence of sinus pause over 3 seconds causing dizziness symptoms after administration of diltiazem 120 mg and metoprolol 25 mg. Vitals/I&O/Wt Last Vital Signs Temp 97.6 F 02/27/25 04:31 Pulse 60 02/27/25 14:00 Resp 17 02/27/25 13:30 BP 99/54 02/27/25 13:30 Pulse Ox 94 02/27/25 13:30 O2 Del Method Nasal Cannula 02/27/25 13:30 O2 Flow Rate 3 02/27/25 13:30 02/26/25 02/27/25 02/27/25 22:59 06:59 14:59 Intake Total 1000 / 1000 Output Total 500 / 850 350 / 850 Balance -500 / 150 650 / 150 Weight last 48 hrs Weight 297 lb Weight 292 lb 6 oz Weight 270 lb Physical Exam 2 Const: COMMON NORMALS: no acute distress and patient oriented x3 Chest: COMMONS NORMALS: normal inspection of the chest and normal palpation of entire chest wall CHEST: Yes Symmetrical chest wall rise Resp: COMMON NORMALS: normal respiratory effort, No retractions, No use of accessory muscles and clear to auscultation bilaterally EFFORT & INSPECTION: Yes symmetric chest movement AUSCULTATION: clear to auscultation bilaterally Cardio: COMMON NORMALS: S1 normal heart sound present, S2 normal heart sound present, No gallops present (Cardio), No clicks present (Cardio), No murmurs present (Cardio) and No rub (Cardio) RATE: tachycardic RHYTHM: abnormal rhythm irregularly irregular HEART SOUNDS: S1 normal heart sound present and S2 normal heart sound present PERIPHERAL PULSES: radial pulses present, posterior tibial pulses present and dorsalis pedis present Neuro: COMMON NORMALS: patient oriented x3 and moves all extremities Psych: COMMON NORMALS: mental status grossly normal and cooperative Urinary Catheter Management: Esposito: Cath Placed During This Visit: yes Reason for Continuing Indwelling Catheter: Accurate Measurement of Urinary Output in Critically Ill Patients Urinary Catheter Date of Insertion: 02/27/25 Urinary Catheter Time of Insertion: 01:12 Data 02/27/25 02:27 02/27/25 12:02 A&P Assessment and plan 1. Sick sinus syndrome: 2. Atrial fibrillation: 3. Chronic systolic dysfunction of left ventricle: 4. Unstable angina: 5. Benign hypertension: 6. Ischemic cardiomyopathy: 7. CKD (chronic kidney disease): Plan: Dopamine was discontinued this morning and her home dose of diltiazem and metoprolol was administered, since she was in atrial fibrillation with RVR. It appears she has sick sinus syndrome, when rate limiting medications are withheld she has atrial fibrillation with RVR, on diltiazem or metoprolol she develops symptomatic sinus pauses. She will likely need permanent pacemaker placement. For now we will hold diltiazem and metoprolol, observe heart rate and rhythm with symptoms. We can resume dopamine if she maintains symptomatic bradycardia less than 50 bpm, however for now heart rate is ranging in the 50 to 60 bpm range. In looking at the telemetry, she is currently in sinus rhythm with some junctional escape beats and PACs. As we do not have a provider capable of pacemaker placement, she will likely need transfer. This is not emergent at this point, will likely occur on Sunday. She will stay in the ICU for close observation. She will also need coronary angiogram for the unstable angina symptoms, currently she is chest pain-free. Will continue hydration with normal saline 75 mL/h, and plan for coronary angiogram when creatinine has reached around 1.5. To that end we will discontinue spironolactone as creatinine is 1.9 today. She does not appear volume overloaded. Echocardiogram is pending read. Awaiting records from [facility] for full details of recent stent placement. PDMP PDMP Reviewed: Not Reviewed Attestations 2 Medical Necessity Statement*: Will likely need transfer for permanent pacemaker placement Coding Level of Care Code Acute Code for [facility] Fwd Diagnoses Sick sinus syndrome I49.5 Atrial fibrillation I48.91 Chronic systolic dysfunction of left ventricle I51.9 Unstable angina I20.0 Benign hypertension I10 Ischemic cardiomyopathy I25.5 CKD (chronic kidney disease) N18.9
[2025-02-27] MEDS: dilTIAZem ER (24HR) 120 mg Capsule PO (09:48)
[2025-02-27 12:24] LABS: Anion Gap 17.9 (5-19); Blood Urea Nitrogen 41 mg/dL (8-23); Calcium 8.7 mg/dL (8.5-10.5); Carbon Dioxide 26 mmol/L (22-29); Chloride 97 mmol/L (98-107); Creatinine Clr Calc Pharmacy 36.2930; Glucose 263 mg/dL (65-115); Osmolality Calculated 301 mOsm/kg (285-295); Potassium 4.9 mmol/L (3.5-5.1); Sodium 136 mmol/L (136-145)
--- NOTE | 2025-02-27 13:23 | ECG_ITS ---
[email or web address] 2025-02-27 Pat Name: Shauna Sena Department: Room: ICU01 Gender: Female [employer]: : 1955 Requested By: Betty Ayala Order Number: [id number] Rahel MD: YULI ARANA Measurements Intervals [place] Rate: 53 P: 0 MD: 0 QRS: 29 QRSD: 110 T: 62 QT: 421 QTc: 398 Interpretive Statements ATRIAL FIBRILLATION WITH SLOW VENTRICULAR RESPONSE INCOMPLETE RIGHT BUNDLE BRANCH BLOCK [90+ ms QRS DURATION, TERMINAL R IN V1/V2, 40+ ms S IN I/aVL/V4/V5/V6] MODERATE ST DEPRESSION [0.05+ mV ST DEPRESSION] Compared to ECG 02/26/2025 23:57:05 ST (T wave) deviation now present Electronically Signed On 02-27-2025 20:09:04 CDT by YULI ARANA [email or web address]
[2025-02-27] MEDS: DOPamine drip 400 MG/250 ML PREMIX 25.26 MG IV (15:32)
--- NOTE | 2025-02-27 15:51 | P.PN_ITS ---
Subjective 2 Subjective: Patient was seen this morning, currently alert oriented x 3, following commands, denies any fevers, no chills, no cough, no nausea, no vomiting, she did have episode of sinus pauses longest duration 5 seconds, symptomatic with dizziness, placed on dopamine drip Vitals/I&O/Wt Last Vital Signs Temp 97.6 F 02/27/25 04:31 Pulse 60 02/27/25 14:00 Resp 17 02/27/25 13:30 BP 99/54 02/27/25 13:30 Pulse Ox 94 02/27/25 13:30 O2 Del Method Nasal Cannula 02/27/25 13:30 O2 Flow Rate 3 02/27/25 13:30 02/27/25 02/27/25 02/27/25 06:59 14:59 22:59 Intake Total 1000 / 1000 Output Total 350 / 850 Balance 650 / 150 Weight last 48 hrs Weight 134.717 kg Weight 132.619 kg Weight 122.47 kg Physical Exam 2 Const: COMMON NORMALS: no acute distress and patient oriented x3 Resp: COMMON NORMALS: normal respiratory effort, No retractions, No use of accessory muscles and clear to auscultation bilaterally AUSCULTATION: clear to auscultation bilaterally Cardio: COMMON NORMALS: regular rate, regular rhythm, S1 normal heart sound present and S2 normal heart sound present RATE: regular rate RHYTHM: r egular rhythm HEART SOUNDS: S1 normal heart sound present and S2 normal heart sound present GI: COMMON NORMALS: Normal to inspection, nondistended, normoactive bowel sounds present and non-tender Extremity: COMMON NORMALS: no clubbing, cyanosis or edema and no pedal edema Neuro: COMMON NORMALS: patient oriented x3 Psych: COMMON NORMALS: mental status grossly normal Urinary Catheter Management: Esposito: Cath Placed During This Visit: yes Reason for Continuing Indwelling Catheter: Accurate Measurement of Urinary Output in Critically Ill Patients Urinary Catheter Date of Insertion: 02/27/25 Urinary Catheter Time of Insertion: 01:12 Data 02/27/25 02:27 02/27/25 12:02 A&P Assessment and plan 1. Hyperlipidemia: 2. Hypercholesteremia: 3. GOLDEN (dyspnea on exertion): 4. Atrial fibrillation: 5. CKD (chronic kidney disease): 6. Ischemic cardiomyopathy: 7. Benign hypertension: 8. SOB (shortness of breath): 9. Sinus pause: 10. Tachy-justice syndrome: Plan: Shortness of breath -With complaints of back pain -reports that her typical back pain is an indicator of her heart, whenever she has had her 10 stents placed in her heart, she is never had chest pain she has had back pain - No lower extremity edema - Plan - Serial EKGs, serial troponins, telemetry monitoring - Aspirin, statin, Plavix, metoprolol - Therapeutic Lovenox - Hold Eliquis -Creatinine 1.9, Lasix on hold - Cardiac echo pending - CT chest no acute findings - Type II days mellitus low-dose sign scale - Decrease Lantus to 20 to twice daily - Hypothyroidism continue levothyroxine - Full code - Lovenox for DVT prophylaxis Tachybradycardia syndrome - With episodes of sinus pauses during the night, longest measuring 5 seconds, on a dopamine drip - Dopamine drip was then stopped, due to A-fib with RVR, she was given metoprolol, amiodarone - Subsequently developed sinus pause, bradycardia - Plans on possible permanent pacemaker placement and consideration of transfer based on clinical progress PDMP PDMP Reviewed: Not Reviewed Attestations 2 Medical Necessity Statement*: Patient requires hospitalization for shortness of breath, tachybradycardia syndrome Diagnoses Hyperlipidemia E78.5 Hypercholesteremia E78.00 GOLDEN (dyspnea on exertion) R06.09 Atrial fibrillation I48.91 CKD (chronic kidney disease) N18.9 Ischemic cardiomyopathy I25.5 Benign hypertension I10 SOB (shortness of breath) R06.02 Sinus pause I45.5 Tachy-justice syndrome I49.5
--- NOTE | 2025-02-27 16:05 | PC.SOCIAL ---
*IMM* Patient received Important Message from [employer], Pt Received a copy. Initialed and dated in the chart.
[2025-02-27] MEDS: pantoprazole 40 mg SDV IVP (17:34)
--- NOTE | 2025-02-27 21:22 | PC.NURSE ---
Lovenox: Held [address] Hightower.
[2025-02-27] MEDS: DOPamine drip 400 MG/250 ML PREMIX 37.89 MG IV (23:08)
[2025-02-28] VITALS (78 sets, daily range): BP systolic 86–160; BP diastolic 31–108; PULSE 65–143; RESP 4–30; TEMP 36.9–38; O2SAT 87–94
[2025-02-28 04:26] LABS: Hematocrit 44.5 % (36-47); Hemoglobin 14.80 g/dL (11.27-16.99); Mean Corpuscular HGB Conc 33.3 g/dL (30-55); Mean Corpuscular Hemoglobin 30.1 pg (27-33); Mean Corpuscular Volume 90.6 fl (85-98); Nucleated Red Blood Cells % 0 %; Platelet Count 266 10^3/cmm (157-399); Red Blood Count 4.91 10^6/uL (3.85-5.65); White Blood Count 12.63 10^3/uL (3.29-11.43)
[2025-02-28 04:47] LABS: Anion Gap 17.1 (5-19); Blood Urea Nitrogen 44 mg/dL (8-23); Calcium 8.7 mg/dL (8.5-10.5); Carbon Dioxide 25 mmol/L (22-29); Chloride 97 mmol/L (98-107); Creatinine Clr Calc Pharmacy 36.2930; Glucose 315 mg/dL (65-115); Osmolality Calculated 301 mOsm/kg (285-295); Potassium 5.1 mmol/L (3.5-5.1); Sodium 134 mmol/L (136-145)
[2025-02-28] MEDS: DOPamine drip 400 MG/250 ML PREMIX 50.52 MG IV (04:55)
[2025-02-28] MEDS: ferrous sulfate EC 325 mg Tablet PO ×2 (09:12→17:14)
[2025-02-28] MEDS: insulin glargine 100 units/1 mL 30 UNIT SUBCUT ×2 (09:13→17:33)
--- NOTE | 2025-02-28 11:22 | USR_ITS ---
PROCEDURE INFORMATION: Exam: US Retroperitoneal, Complete, Kidneys and Bladder Exam date and time: 02/28/2025 1:45 PM Age: 69 years old Clinical indication: Condition or disease; Other: Henry TECHNIQUE: Imaging protocol: Real-time ultrasound of the retroperitoneum with image documentation. Complete exam focused on the bilateral kidneys and urinary bladder. COMPARISON: US renal BI with PV bladder 08/23/2023 11:10 AM FINDINGS: Right kidney: The right kidney measures 103 x 63 x 50 mm. . Cortical thickness and echogenicity are normal. No mass lesion, hydronephrosis, or nephrolithiasis is present. No cortical scarring is evident. No ureteral jet was visible with the bladder being empty. Left kidney: The left kidney measures 121 x 59 x 47 mm. Cortical thickness and echogenicity are normal. No mass lesion, hydronephrosis, or nephrolithiasis is present. No cortical scarring is evident. No ureteral jet was visible, the bladder being empty. Urinary bladder: Drained with the catheter. No bladder mass, stones, or diverticula are present. Other findings: Ureters: Unremarkable to the extent visible. US/US renal BI* [id number] IMPRESSION: 1. No evidence of renal upper tract pathology. 2. Essentially nonvisualization of the urinary bladder due to drainage by urinary catheter.
[2025-02-28] MEDS: DOPamine drip 400 MG/250 ML PREMIX 37.89 MG IV ×2 (12:05→18:51)
--- NOTE | 2025-02-28 13:39 | P.PN_ITS ---
Subjective 2 Subjective: Patient has no more significant episodes of bradycardia Patient heart rate has improved on dopamine He is awaiting left heart cath given improvement in renal function Vitals/I&O/Wt Last Vital Signs Temp 99.0 F 02/28/25 04:00 Pulse 86 02/28/25 12:15 Resp 17 02/28/25 10:15 BP 159/67 02/28/25 12:15 Pulse Ox 88 L 02/28/25 12:15 O2 Del Method Nasal Cannula 02/28/25 12:15 O2 Flow Rate 3 02/28/25 12:15 02/27/25 02/28/25 02/28/25 22:59 06:59 14:59 Intake Total 730.000 / 448.792 4783.210 / 1984.210 245.79 / 245.79 Output Total 550 / 550 700 / 1250 Balance 180.000 / 180.000 554.210 / 734.210 245.79 / 245.79 Weight last 48 hrs Weight 303 lb 9.6 oz Weight 297 lb Weight 292 lb 6 oz Physical Exam 2 Const: OTHER: GENERAL: Patient is alert, awake and oriented x3. HEART: Regular S1 and S2. No murmur, rub or gallop. LUNGS: Clear to auscultate bilaterally. CENTRAL NERVOUS SYSTEM: Grossly nonfocal. EXTREMITIES: Lower extremities with out edema bilaterally. Urinary Catheter Management: Esposito: Cath Placed During This Visit: yes Reason for Continuing Indwelling Catheter: Accurate Measurement of Urinary Output in Critically Ill Patients Urinary Catheter Date of Insertion: 02/27/25 Urinary Catheter Time of Insertion: 01:12 Data 02/28/25 03:33 02/28/25 03:33 A&P Assessment and plan 1. Sick sinus syndrome: 2. Persistent atrial fibrillation: 3. Chronic systolic dysfunction of left ventricle: 4. Unstable angina: 5. Benign hypertension: 6. Ischemic cardiomyopathy: 7. CKD (chronic kidney disease): Plan: Creatinine remained 2.1 Patient may require pacemaker permanent for tachybradycardia syndrome Continue IV Lovenox Continue IV fluid 100 mL/h Check BUN/creatinine number Continue rest of medications with plan once creatinine near 1.5 will proceed with left heart cath and may need then consider permanent pacemaker which is not being happened here as we do not have the facility and may have to transfer the patient for that since it is the weekend and nobody is doing elective pacemaker in place we do not have bed in the [facility] will wait until next week. PDMP PDMP Reviewed: Not Reviewed Attestations 2 Medical Necessity Statement*: Patient require continuation of hospitalization for above defined care Coding Level of Care Code Acute Code for [facility] Fwd Diagnoses Sick sinus syndrome I49.5 Persistent atrial fibrillation I48.19 Atrial fibrillation type: persistent (not longstanding) Chronic systolic dysfunction of left ventricle I51.9 Unstable angina I20.0 Benign hypertension I10 Ischemic cardiomyopathy I25.5 CKD (chronic kidney disease) N18.4 Chronic kidney disease stage: stage 4 (GFR 15-29)
--- NOTE | 2025-02-28 14:07 | P.PN_ITS ---
Subjective 2 Subjective: Patient was seen this morning, currently alert oriented x 3, following all commands, denies any fevers, chills, no cough, no lightheadedness, no chest pain we discussed her creatinine 2.1, discussed renal ultrasound, continue IV fluids, nephrology consultation Vitals/I&O/Wt Last Vital Signs Temp 99.0 F 02/28/25 04:00 Pulse 86 02/28/25 12:15 Resp 17 02/28/25 10:15 BP 159/67 02/28/25 12:15 Pulse Ox 88 L 02/28/25 12:15 O2 Del Method Nasal Cannula 02/28/25 12:15 O2 Flow Rate 3 02/28/25 12:15 02/27/25 02/28/25 02/28/25 22:59 06:59 14:59 Intake Total 730.000 / 414.637 3279.210 / 1984.210 245.79 / 245.79 Output Total 550 / 550 700 / 1250 Balance 180.000 / 180.000 554.210 / 734.210 245.79 / 245.79 Weight last 48 hrs Weight 137.711 kg Weight 134.717 kg Weight 132.619 kg Physical Exam 2 Const: COMMON NORMALS: no acute distress and patient oriented x3 Resp: COMMON NORMALS: normal respiratory effort, No retractions, No use of accessory muscles and clear to auscultation bilaterally AUSCULTATION: clear to auscultation bilaterally Cardio: COMMON NORMALS: regular rate, regular rhythm, S1 normal heart sound present and S2 normal heart sound present RATE: regular rate RHYTHM: r egular rhythm HEART SOUNDS: S1 normal heart sound present and S2 normal heart sound present GI: COMMON NORMALS: Normal to inspection, nondistended, normoactive bowel sounds present and non-tender Extremity: COMMON NORMALS: no pedal edema Neuro: COMMON NORMALS: patient oriented x3 Psych: COMMON NORMALS: mental status grossly normal Urinary Catheter Management: Esposito: Cath Placed During This Visit: yes Reason for Continuing Indwelling Catheter: Accurate Measurement of Urinary Output in Critically Ill Patients Urinary Catheter Date of Insertion: 02/27/25 Urinary Catheter Time of Insertion: 01:12 Data 02/28/25 03:33 02/28/25 03:33 A&P Assessment and plan 1. Sick sinus syndrome: 2. Persistent atrial fibrillation: 3. Chronic systolic dysfunction of left ventricle: 4. Unstable angina: 5. Benign hypertension: 6. Ischemic cardiomyopathy: 7. CKD (chronic kidney disease): 8. Hyperlipidemia: 9. Hypercholesteremia: 10. GOLDEN (dyspnea on exertion): 11. SOB (shortness of breath): 12. Sinus pause: 13. Tachy-justice syndrome: Plan: Shortness of breath -With complaints of back pain -reports that her typical back pain is an indicator of her heart, whenever she has had her 10 stents placed in her heart, she is never had chest pain she has had back pain - No lower extremity edema - Plan - Serial EKGs, serial troponins, telemetry monitoring - Aspirin, statin, Plavix, metoprolol - Therapeutic Lovenox - Hold Eliquis -Creatinine 2.1, Lasix on hold, IV fluids, renal ultrasound, consulted nephrology - Cardiac echo pending - CT chest no acute findings - Type II days mellitus low-dose sign scale - Decrease Lantus to 20 to twice daily - Hypothyroidism continue levothyroxine - Full code - Lovenox for DVT prophylaxis Tachybradycardia syndrome - With episodes of sinus pauses during the night, longest measuring 5 seconds, on a dopamine drip - Dopamine drip was then stopped, due to A-fib with RVR, she was given metoprolol, amiodarone - Subsequently developed sinus pause, bradycardia - Plans on possible permanent pacemaker placement and consideration of transfer based on clinical progress Plan for today consult nephrology, renal ultrasound, IV fluids, monitor creatinine PDMP PDMP Reviewed: Not Reviewed Attestations 2 Medical Necessity Statement*: Patient requires hospitalization for shortness of breath, tachybradycardia syndrome Diagnoses Sick sinus syndrome I49.5 Persistent atrial fibrillation I48.19 Atrial fibrillation type: persistent (not longstanding) Chronic systolic dysfunction of left ventricle I51.9 Unstable angina I20.0 Benign hypertension I10 Ischemic cardiomyopathy I25.5 CKD (chronic kidney disease) N18.4 Chronic kidney disease stage: stage 4 (GFR 15-29) Hyperlipidemia E78.5 Hypercholesteremia E78.00 GOLDEN (dyspnea on exertion) R06.09 SOB (shortness of breath) R06.02 Sinus pause I45.5 Tachy-justice syndrome I49.5
--- NOTE | 2025-02-28 15:23 | PM.CONSULT ---
Providers/Reason For Consult Consulting Physician/Specialty*: kommana/nephrology Reason for Consult*: trever ON CKD Attending Physician: Jamel Alicea MD Primary Care Provider: Farhat Acosta MD History of Present Illness History of Present Illness Shauna Sena is a 69 year old female Patient is a 69-year-old female with past medical history of atrial fibrillation on chronic anticoagulation, diabetes, hypothyroidism COPD, coronary artery disease, chronic kidney disease presented to the emergency department due to shortness of breath. And chest pain. Home medications included spironolactone 25 mg a day metoprolol furosemide 40 mg daily. Lab data significant for creatinine of 1.9 on presentation patient was started on IV fluids. Baseline creatinine seems to be 1.5-1.9 range. Creatinine has worsened slightly to 2.1 currently also has mild hyponatremia with a sodium of 134. No hydronephrosis on renal ultrasound. Urine analysis bland with no proteinuria and no microscopic hematuria. Review of Systems Narrative: negative Medications/Allergies Home Medications ?Medication ?Instructions ?Recorded ?Confirmed ?Last Taken ?Type cyanocobalamin (vitamin B-12) 1,000 mcg PO DAILY #30 tabs 02/05/22 02/26/25 02/26/25 Rx 1,000 mcg tablet (Vitamin B-12) acetaminophen 500 mg tablet 1,000 mg PO Q6H PRN Pain 05/11/22 02/26/25 02/03/24 History nitroglycerin 0.4 mg sublingual 0.4 mg sublingual Q5M PRN Chest 05/24/23 02/26/25 02/03/24 Rx tablet (Nitrostat) Pain #30 tabs cholecalciferol (vitamin D3) 50 50 mcg PO DAILY #30 caps 10/30/23 02/26/25 02/26/25 Rx mcg (2,000 unit) capsule Manual wheelchair #1 ea 12/05/23 02/26/25 02/03/24 Rx ostomy supplies-skin barrier 6 X #60 wafers 02/28/24 02/26/25 Unknown Rx 6 wafer (Coloplast Skin Barrier) clopidogrel 75 mg tablet 75 mg PO DAILY #90 tabs 03/27/24 02/26/25 02/26/25 Rx flash glucose scanning reader #2 ea 04/28/24 02/26/25 Unknown Rx (FreeStyle Lou 14 Day [place]) flash glucose sensor (FreeStyle #2 ea 04/28/24 02/26/25 Unknown Rx Lou 14 Day Sensor kit) hydralazine 25 mg tablet 25 mg PO TID PRN high bp 06/05/24 02/26/25 Unknown History diltiazem HCl 120 mg 120 mg PO DAILY #90 caps 07/28/24 02/26/25 02/26/25 Rx capsule,extended release 24 hr insulin syringe-needle U-100 1 mL #100 ea 08/26/24 02/26/25 Unknown Rx 29 gauge x 1/2 isosorbide mononitrate 30 mg 30 mg PO DAILY #30 tabs 09/16/24 02/26/25 02/26/25 Rx tablet,extended release 24 hr spironolactone 25 mg tablet 25 mg PO DAILY #30 tabs 09/19/24 02/26/25 02/26/25 Rx allopurinol 300 mg tablet 300 mg PO DAILY #90 tabs 11/19/24 02/26/25 02/26/25 Rx apixaban 5 mg tablet 5 mg PO BID #180 tabs 11/19/24 02/26/25 02/26/25 Rx atorvastatin 40 mg tablet (Lipitor) 40 mg PO DAILY #90 tabs 11/19/24 02/26/25 02/26/25 Rx metoprolol tartrate 100 mg tablet 100 mg PO BID #180 tabs 11/19/24 02/26/25 02/26/25 Rx potassium chloride 20 mEq 20 meq PO BID #180 tabs 11/19/24 02/26/25 02/26/25 Rx tablet,extended release(part/cryst) pregabalin 50 mg capsule 50 mg PO BID #60 caps 11/19/24 02/26/25 02/26/25 Rx insulin glargine 100 unit/mL (3 90 unit (0.9 mL) SUBCUT BID #60 mL 01/12/25 02/26/25 02/26/25 Rx mL) subcutaneous pen (Lantus Solostar U-100 Insulin) pen needle, diabetic 31 gauge x #100 ea 01/12/25 02/26/25 Unknown Rx 5/16 (TechLITE Pen Needle) lorazepam 1 mg tablet 1 mg PO BID PRN anxiety #60 tabs 01/26/25 02/26/25 Unknown Rx buspirone 10 mg tablet 10 mg PO TID #90 tabs 02/05/25 02/26/25 02/26/25 Rx dulaglutide 1.5 mg/0.5 mL 1.5 mg (0.5 mL) SUBCUT Q7D #2 mL 02/05/25 02/26/25 02/23/25 Rx subcutaneous pen injector ferrous sulfate 325 mg (65 mg 325 mg PO BID #60 tabs 02/05/25 02/26/25 02/26/25 Rx iron) tablet vortioxetine 10 mg tablet 10 mg PO DAILY #30 tabs 02/05/25 02/26/25 02/26/25 Rx (Trintellix) budesonide 0.5 mg/2 mL suspension 0.5 mg inhalation BID PRN COPD 02/26/25 02/26/25 Unknown History for nebulization furosemide 40 mg tablet See Rx Instructions .Route 02/26/25 02/26/25 02/26/25 History .COMPLEX edema levothyroxine 50 mcg tablet 50 mcg PO QAM 02/26/25 02/26/25 02/26/25 History Allergies Allergy/AdvReac Type Severity Reaction Status Date / Time morphine Allergy Severe Quit Verified 09/16/24 13:34 breathing amiodarone Allergy ALGY-Anaphy Verified 09/16/24 13:34 laxis sulfamethoxazole (From Allergy ALGY-Rash Verified 09/16/24 13:34 Bactrim) trimethoprim (From Bactrim) Allergy ALGY-Rash Verified 09/16/24 13:34 shellfish derived AdvReac Severe Hives & Verified 09/16/24 13:34 throat swells meperidine (From Demerol) AdvReac Intermediate Made N & V Verified 09/16/24 13:34 Penicillins AdvReac Intermediate RAsh Verified 09/16/24 13:34 Current Medications Generic Name Dose Route Start Last Admin Trade Name Freq PRN Reason Stop Dose Admin Allopurinol 300 mg 02/27/25 09:00 02/28/25 09:12 Allopurinol 300 Mg Tablet PO 300 mg DAILY ANJU Administration Aspirin 81 mg 02/27/25 09:00 02/28/25 09:12 Aspirin 81 Mg Ec Tablet PO 81 mg DAILY ANJU Administration Atorvastatin Calcium 40 mg 02/27/25 09:00 02/28/25 09:12 Atorvastatin 40 Mg Tablet PO 40 mg DAILY ANJU Administration Buspirone HCl 10 mg 02/26/25 21:00 02/28/25 14:19 Buspirone 10 Mg Tablet PO 10 mg TID ANJU Administration Clopidogrel Bisulfate 75 mg 02/27/25 09:00 02/28/25 09:12 Clopidogrel 75 Mg Tablet PO 75 mg DAILY ANJU Administration Diltiazem HCl 120 mg 02/27/25 09:45 02/27/25 09:48 Diltiazem Er (24hr) 120 Mg Capsule PO 120 mg On Hold: 02/27/25 12:47 DAILY ANJU Administration Enoxaparin Sodium 120 mg 02/28/25 09:30 02/28/25 09:39 Enoxaparin 120 Mg/0.8 Ml Syringe 1 mg/kg (120 mg) 120 mg SUBCUT Administration Q12H ANJU Ferrous Sulfate 325 mg 02/26/25 18:00 02/28/25 09:12 Ferrous Sulfate Ec 325 Mg Tablet PO 325 mg BID ANJU Administration Dopamine HCl/Dextrose 400 mg in 250 mls @ 25.259 mls/hr 02/27/25 15:30 02/28/25 12:05 Intropin Drip IV 7.5 mcg/kg/min CONT ANJU 37.89 mls/hr Protocol Administration 5 MCG/KG/MIN Sodium Chloride 1,000 mls @ 100 mls/hr 02/28/25 12:15 02/28/25 12:17 Sodium Chloride 0.9% IV 100 mls/hr .Q10H ANJU Administration Insulin Glargine 30 unit 02/28/25 09:00 02/28/25 09:13 Insulin Glargine 100 Units/1 Ml SUBCUT 30 unit BID ANJU Administration Insulin Human Lispro 0 unit 02/26/25 18:00 02/28/25 12:17 Insulin Lispro 100 Unit/1 Ml SUBCUT 1 unit TIDWM ANJU Administration Protocol Levothyroxine Sodium 50 mcg 02/27/25 06:00 02/28/25 06:00 Levothyroxine 50 Mcg Tablet PO 50 mcg QAM ANJU Administration Metoprolol Tartrate 25 mg 02/27/25 09:50 02/27/25 10:46 Metoprolol Tartrate 25 Mg Tablet PO 25 mg On Hold: 02/27/25 12:48 BID@0900,2100 ANJU Administration Ondansetron HCl 4 mg 02/27/25 02:58 02/27/25 19:18 Ondansetron 2 Mg/Ml Sdv 2 Ml IVP 4 mg Q4H PRN Administration vomiting, or N/V if npo Pantoprazole Sodium 40 mg 02/26/25 17:30 02/27/25 17:34 Pantoprazole 40 Mg Sdv IVP 40 mg Q24H ANJU Administration Pregabalin 50 mg 02/26/25 18:00 02/28/25 09:13 Pregabalin 50 Mg Capsule PO 50 mg BID ANJU Administration PFSH Acute PFSH: Medical History (Updated 02/27/25 @ 15:55 by Jamel Alicea MD) SOB (shortness of breath) Diabetes type 2, uncontrolled Atherosclerotic heart disease of [place] coronary artery with unstable angina pectoris CKD (chronic kidney disease) CHF (congestive heart failure) Acute hip pain Fall Weakness COPD with acute exacerbation Acute on chronic hypoxic respiratory failure Pneumonia CHF exacerbation Urinary retention Abscess Gait instability Positive cardiac stress test Fluid overload Muscle pain Skin rash Diarrhea Bronchospasm Hyperglycemia Chronic pain Diarrhea Generalized anxiety disorder Type 2 diabetes mellitus MRSA (methicillin resistant staph aureus) culture positive Influenza A Community acquired pneumonia Vitamin B12 deficiency Polypharmacy Gout Hyperlipidemia Hypothyroidism Fibromyalgia Depression Chronic respiratory failure Amiodarone pulmonary toxicity Atrial fibrillation Hypercholesteremia HTN (hypertension) CAD (coronary artery disease) Last echocardiogram 08/06 with EF of 50% Stents x 3 - last in 02/2023 Major depressive disorder, recurrent severe without psychotic features Chronic pain She reports taking pain medicines and muscle relaxers for a recent back injury; she has chronic left leg pain. Surgical History History of incision and drainage Right breast abscess History of coronary artery stent placement Stent x [address] [facility] - 08/2024 - Total of 10 stents as of 09/03/24 H/O left knee surgery Hx of cholecystectomy History of hysterectomy partial H/O section History of back surgery H/O eye surgery History of carpal tunnel release H/O cardiac radiofrequency ablation Family History Mother Cancer breast Stroke Brother Heart disease Asthma Cancer prostate Sister Heart disease Social History Smoking and tobacco/nicotine status: never used tobacco/nicotine Alcohol intake: never Substance/Drug Use: never Housing: Other Details: Currently with her family Vitals/I&O/Wt Last Vital Signs Temp 99.0 F 02/28/25 04:00 Pulse 88 02/28/25 14:00 Resp 25 H 02/28/25 14:00 BP 151/63 02/28/25 14:00 Pulse Ox 90 02/28/25 14:00 O2 Del Method Nasal Cannula 02/28/25 14:00 O2 Flow Rate 3 02/28/25 14:00 02/28/25 02/28/25 02/28/25 06:59 14:59 22:59 Intake Total 1254.210 / 1984.210 485.79 / 485.79 Output Total 700 / 1250 Balance 554.210 / 734.210 485.79 / 485.79 Weight last 48 hrs Weight 137.711 kg Weight 134.717 kg Weight 132.619 kg Physical Exam Narrative: Awake and alert, no distress No JVD PERRLA S1-S2 regular rate and rhythm Lungs with decreased breath sounds bilaterally Abdomen soft nontender extremities no pitting edema Skin no rash Urinary Catheter Management: Esposito: Cath Placed During This Visit: yes Reason for Continuing Indwelling Catheter: Accurate Measurement of Urinary Output in Critically Ill Patients Urinary Catheter Date of Insertion: 02/27/25 Urinary Catheter Time of Insertion: 01:12 Data 02/28/25 03:33 02/28/25 03:33 A&P Assessment and plan 1. Acute kidney injury: Plan: 1. Acute on chronic kidney disease stage3 : Baseline creatinine seems to be in the 1.5-1.9 range, creatinine slightly elevated at 2.1 currently. No obstruction, urine UA bland. - Continue IV fluids till a.m can DC in a.m ., avoid IV contrast - Will resume diuretics in 1 to 2 days 2. History of CHF, holding Lasix and spironolactone , Receiving IV fluids, prior ejection fraction of 45%, repeat echocardiogram pending 3. Acute on chronic respiratory failure, multifactorial in the setting of restrictive lung disease and CHF, chronically on 3 L O2 4. Hyponatremia, mild monitor, Patient evaluated using audiovisual cart. Time spent 40 minutes. PDMP PDMP Reviewed: Not Reviewed Consult Attestations Medical Necessity Statement: per mediicne Coding Level of Care Code Acute Code for Chg Fwd Diagnoses Acute kidney injury N17.9
[2025-02-28] MEDS: pantoprazole 40 mg SDV IVP (17:14)
[2025-02-28] MEDS: ondansetron 2 mg/ML SDV 2 mL 4 MG IVP (18:54)
--- NOTE | 2025-02-28 21:35 | PC.NURSE ---
Blood sugar running high, current blood glucose 322 with no insulin coverage for bedtime. Notified Dr. Marinelli, received new telephone order for a 1x dose of 20 units insulin lispro subcutaneous now.
[2025-03-01] VITALS (44 sets, daily range): BP systolic 96–155; BP diastolic 51–93; PULSE 70–101; RESP 15–22; TEMP 36.6–37.1; O2SAT 86–96
[2025-03-01 03:55] LABS: Hematocrit 38.0 % (36-47); Hemoglobin 12.10 g/dL (11.27-16.99); Mean Corpuscular HGB Conc 31.8 g/dL (30-55); Mean Corpuscular Hemoglobin 28.9 pg (27-33); Mean Corpuscular Volume 90.9 fl (85-98); Nucleated Red Blood Cells % 0 %; Platelet Count 192 10^3/cmm (157-399); Red Blood Count 4.18 10^6/uL (3.85-5.65); White Blood Count 10.01 10^3/uL (3.29-11.43)
[2025-03-01 04:15] LABS: Blood Urea Nitrogen 38 mg/dL (8-23); Calcium 8.1 mg/dL (8.5-10.5); Carbon Dioxide 25 mmol/L (22-29); Chloride 104 mmol/L (98-107); Glucose 238 mg/dL (65-115); Osmolality Calculated 301 mOsm/kg (285-295); Sodium 137 mmol/L (136-145)
[2025-03-01 04:42] LABS: Creatinine Clr Calc Pharmacy 45.4146
[2025-03-01 04:43] LABS: Anion Gap 12.4 (5-19); Potassium 4.4 mmol/L (3.5-5.1)
[2025-03-01] MEDS: fluticasone nasal spray 16gm Btl 1 SPRAY NASAL ×2 (08:41→17:10)
[2025-03-01] MEDS: ferrous sulfate EC 325 mg Tablet PO ×2 (08:42→17:10)
[2025-03-01] MEDS: insulin glargine 100 units/1 mL 30 UNIT SUBCUT ×2 (08:46→17:11)
--- NOTE | 2025-03-01 09:34 | PM.PN ---
Subjective Subjective: n new c/o p\on 3l Nc Medications: Reviewed: Yes Vitals/I&O/Wt Last Vital Signs Temp 98.3 F 03/01/25 04:00 Pulse 70 03/01/25 08:03 Resp 16 03/01/25 08:03 BP 144/64 03/01/25 08:00 Pulse Ox 92 03/01/25 08:03 O2 Del Method Nasal Cannula 03/01/25 08:03 O2 Flow Rate 2 03/01/25 08:03 02/28/25 03/01/25 03/01/25 22:59 06:59 14:59 Intake Total 669.675 / 1155.465 56.835 / 9785.796 0690.25 / 1141.25 Output Total 1500 / 1500 1000 / 2500 Balance -830.325 / -344.535 -943.165 / -3136.155 4957.25 / 1141.25 Weight last 48 hrs Weight 138 kg Weight 137.711 kg Physical Exam Narrative: Awake and alert, no distress No JVD PERRLA S1-S2 regular rate and rhythm Lungs with decreased breath sounds bilaterally Abdomen soft nontender extremities no pitting edema Skin no rash Urinary Catheter Management: Esposito: Cath Placed During This Visit: yes Reason for Continuing Indwelling Catheter: Accurate Measurement of Urinary Output in Critically Ill Patients Urinary Catheter Date of Insertion: 02/27/25 Urinary Catheter Time of Insertion: 01:12 Data 03/01/25 03:34 03/01/25 03:34 A&P Assessment and plan 1. Acute kidney injury: Plan: 1. Acute on chronic kidney disease stage3 : Baseline creatinine seems to be in the 1.5-1.9 range, creatinine slightly elevated at 2.1 currently. No obstruction, urine UA bland. - Continue IV fluids -plan for [facility] in AM - Cr improving 2. History of CHF, holding Lasix and spironolactone , Receiving IV fluids, prior ejection fraction of 45%, repeat echocardiogram pending 3. Acute on chronic respiratory failure, multifactorial in the setting of restrictive lung disease and CHF, chronically on 3 L O2 4. Hyponatremia, mild, improved Patient evaluated using audiovisual cart. Time spent 40 minutes. PDMP PDMP Reviewed: Not Reviewed Attestations Medical Necessity Statement*: per jane Coding Level of Care Code Acute Code for Chg Fwd Diagnoses Acute kidney injury N17.9
--- NOTE | 2025-03-01 11:29 | P.PN_ITS ---
Subjective 2 Subjective: No overnight event creatinine has improved to 1.7 Medications: Reviewed: Yes Vitals/I&O/Wt Last Vital Signs Temp 98.3 F 03/01/25 04:00 Pulse 92 03/01/25 10:00 Resp 16 03/01/25 08:03 BP 139/70 03/01/25 10:00 Pulse Ox 91 03/01/25 10:00 O2 Del Method Nasal Cannula 03/01/25 08:03 O2 Flow Rate 2 03/01/25 08:03 02/28/25 03/01/25 03/01/25 22:59 06:59 14:59 Intake Total 669.675 / 1155.465 56.835 / 9389.875 5673.25 / 1141.25 Output Total 1500 / 1500 1000 / 2500 Balance -830.325 / -344.535 -943.165 / -9415.436 6471.25 / 1141.25 Weight last 48 hrs Weight 304 lb 3.806 oz Weight 303 lb 9.6 oz Physical Exam 2 Const: OTHER: GENERAL: Patient is alert, awake and oriented x3. HEART: Regular S1 and S2. No murmur, rub or gallop. LUNGS: Clear to auscultate bilaterally. CENTRAL NERVOUS SYSTEM: Grossly nonfocal. EXTREMITIES: Lower extremities with out edema bilaterally. Urinary Catheter Management: Esposito: Cath Placed During This Visit: yes Reason for Continuing Indwelling Catheter: Accurate Measurement of Urinary Output in Critically Ill Patients Urinary Catheter Date of Insertion: 02/27/25 Urinary Catheter Time of Insertion: 01:12 Data 03/01/25 03:34 03/01/25 03:34 A&P Assessment and plan 1. Sick sinus syndrome: 2. Persistent atrial fibrillation: 3. Chronic systolic dysfunction of left ventricle: 4. Unstable angina: 5. Benign hypertension: 6. Ischemic cardiomyopathy: 7. CKD (chronic kidney disease): Plan: Creatinine remained 2.1 Patient may require pacemaker permanent for tachybradycardia syndrome Continue IV Lovenox Continue IV fluid 100 mL/h Check BUN/creatinine number Continue rest of medications with plan once creatinine near 1.5 will proceed with left heart cath and may need then consider permanent pacemaker which is not being happened here as we do not have the facility and may have to transfer the patient for that since it is the weekend and nobody is doing elective pacemaker in place we do not have bed in the [facility] will wait until next week. On today's visit dated 03/01/2025 creatinine has improved from 2.1-1.7. Will continue IV fluid hopefully it will bring little bit more creatinine down or at least settle at 1.7 which is the new normal. Plan for left heart cath tomorrow morning. Patient will be n.p.o. overnight PDMP PDMP Reviewed: Not Reviewed Attestations 2 Medical Necessity Statement*: Require continuation hospitalization for above defined care Coding Level of Care Code Acute Code for Chg Fwd Diagnoses Sick sinus syndrome I49.5 Persistent atrial fibrillation I48.19 Atrial fibrillation type: persistent (not longstanding) Chronic systolic dysfunction of left ventricle I51.9 Unstable angina I20.0 Benign hypertension I10 Ischemic cardiomyopathy I25.5 CKD (chronic kidney disease) N18.4 Chronic kidney disease stage: stage 4 (GFR 15-29)
--- NOTE | 2025-03-01 15:17 | P.PN_ITS ---
Subjective 2 Subjective: Patient was seen this morning, currently alert oriented x 3, following all commands, denies any chest pain, palpitations, no fevers, no chills, currently on 4 L, discussed creatinine down to 1.7, plans of possible coronary angiography tomorrow, currently on dopamine drip Vitals/I&O/Wt Last Vital Signs Temp 98.3 F 03/01/25 04:00 Pulse 80 03/01/25 14:00 Resp 16 03/01/25 08:03 BP 137/69 03/01/25 14:00 Pulse Ox 93 03/01/25 14:00 O2 Del Method Nasal Cannula 03/01/25 08:03 O2 Flow Rate 2 03/01/25 08:03 03/01/25 03/01/25 03/01/25 06:59 14:59 22:59 Intake Total 56.835 / 6174.973 8588.25 / 1341.25 Output Total 1000 / 2500 Balance -943.165 / -6859.736 7316.25 / 1341.25 Weight last 48 hrs Weight 138 kg Weight 137.711 kg Physical Exam 2 Const: COMMON NORMALS: no acute distress and patient oriented x3 Resp: COMMON NORMALS: normal respiratory effort, No retractions, No use of accessory muscles and clear to auscultation bilaterally AUSCULTATION: clear to auscultation bilaterally Cardio: COMMON NORMALS: regular rhythm, S1 normal heart sound present and S2 normal heart sound present RATE: bradycardic RHYTHM: regular rhythm H EART SOUNDS: S1 normal heart sound present and S2 normal heart sound present GI: COMMON NORMALS: Normal to inspection, nondistended, normoactive bowel sounds present and non-tender Extremity: COMMON NORMALS: no pedal edema Neuro: COMMON NORMALS: patient oriented x3 Psych: COMMON NORMALS: mental status grossly normal Urinary Catheter Management: Esposito: Cath Placed During This Visit: yes Reason for Continuing Indwelling Catheter: Accurate Measurement of Urinary Output in Critically Ill Patients Urinary Catheter Date of Insertion: 02/27/25 Urinary Catheter Time of Insertion: 01:12 Data 03/01/25 03:34 03/01/25 03:34 A&P Assessment and plan 1. Sick sinus syndrome: 2. Persistent atrial fibrillation: 3. Chronic systolic dysfunction of left ventricle: 4. Unstable angina: 5. Benign hypertension: 6. Ischemic cardiomyopathy: 7. CKD (chronic kidney disease): 8. Hyperlipidemia: 9. Hypercholesteremia: 10. GOLDEN (dyspnea on exertion): 11. SOB (shortness of breath): 12. Sinus pause: 13. Tachy-justice syndrome: Plan: Shortness of breath, NSTEMI -With complaints of back pain -reports that her typical back pain is an indicator of her heart, whenever she has had her 10 stents placed in her heart, she is never had chest pain she has had back pain - No lower extremity edema - Plan - Serial EKGs, serial troponins, telemetry monitoring - Aspirin, statin, Plavix, metoprolol - Therapeutic Lovenox - Hold Eliquis -Creatinine 1.7, Lasix on hold, IV fluids, renal ultrasound no acute findings, consulted nephrology - Cardiac echo pending - CT chest no acute findings - Type II days mellitus low-dose sliding scale - Decrease Lantus to 20 to twice daily - Hypothyroidism continue levothyroxine - Full code - Lovenox for DVT prophylaxis Tachybradycardia syndrome - With episodes of sinus pauses during the night, longest measuring 5 seconds, on a dopamine drip - Dopamine drip was then stopped, due to A-fib with RVR, she was given metoprolol, amiodarone - Subsequently developed sinus pause, bradycardia - Plans on possible permanent pacemaker placement and consideration of transfer based on clinical progress Plan for today IV fluids, monitor creatinine, plan coronary angiography tomorrow PDMP PDMP Reviewed: Not Reviewed Attestations 2 Medical Necessity Statement*: Patient requires hospitalization for chest pain, [place] Diagnoses Sick sinus syndrome I49.5 Persistent atrial fibrillation I48.19 Atrial fibrillation type: persistent (not longstanding) Chronic systolic dysfunction of left ventricle I51.9 Unstable angina I20.0 Benign hypertension I10 Ischemic cardiomyopathy I25.5 CKD (chronic kidney disease) N18.4 Chronic kidney disease stage: stage 4 (GFR 15-29) Hyperlipidemia E78.5 Hypercholesteremia E78.00 GOLDEN (dyspnea on exertion) R06.09 SOB (shortness of breath) R06.02 Sinus pause I45.5 Tachy-justice syndrome I49.5
[2025-03-01] MEDS: polyethylene glycol 3350 Pkt 17 gm PO (15:52)
--- NOTE | 2025-03-01 16:15 | PC.NURSE ---
laxative given to pt had small firm bm on bsc for cath in am at 0600 ivf on ns remains at 50cc hr , shipley with large output noted still some short of breath with activity
[2025-03-01] MEDS: pantoprazole 40 mg SDV IVP (17:11)
[2025-03-02] VITALS (26 sets, daily range): BP systolic 116–181; BP diastolic 61–118; PULSE 77–94; RESP 15–28; TEMP 36.5–37.2; O2SAT 89–95
[2025-03-02 03:42] LABS: Hematocrit 38.2 % (36-47); Hemoglobin 12.20 g/dL (11.27-16.99); Mean Corpuscular HGB Conc 31.9 g/dL (30-55); Mean Corpuscular Hemoglobin 30.0 pg (27-33); Mean Corpuscular Volume 94.1 fl (85-98); Nucleated Red Blood Cells % 0 %; Platelet Count 197 10^3/cmm (157-399); Red Blood Count 4.06 10^6/uL (3.85-5.65); White Blood Count 7.90 10^3/uL (3.29-11.43)
[2025-03-02 04:07] LABS: Anion Gap 14.6 (5-19); Blood Urea Nitrogen 33 mg/dL (8-23); Calcium 8.5 mg/dL (8.5-10.5); Carbon Dioxide 24 mmol/L (22-29); Chloride 106 mmol/L (98-107); Creatinine Clr Calc Pharmacy 51.5336; Glucose 275 mg/dL (65-115); Osmolality Calculated 307 mOsm/kg (285-295); Potassium 4.6 mmol/L (3.5-5.1); Sodium 140 mmol/L (136-145)
--- NOTE | 2025-03-02 06:14 | W.PM.OPSUD ---
Surgery/Procedure H&P Update DATE OF PROCEDURE: March 02, 2025 DATE H&P PERFORMED: 02/26/25 H&P UPDATE INFORMATION: I have reviewed H&P completed within last 30 days, I have examined patient prior to procedure and No changes to prior documentation PREOP DIAGNOSIS: Recurrent chest pain history of prior PCI/unstable angina/multiple 5s pause PRIMARY INDICATION FOR PROCEDURE: Unstable angina History of coronary artery disease prior PCI Tachybradycardia syndrome Multiple 5-second pauses Symptomatic bradycardia dizziness due to pauses PATIENT REASSESSED PRIOR TO SEDATION, WITH NO CHANGE NOTED: Yes PHYSICAL EXAM: alert, oriented x 3, clear to auscultation bilaterally, regular rate & rhythm and operative site marked AIRWAY EVAL/ANESTHESIA PLAN: ASA II, Risks, benefits & alternatives of sedation and/or procedure discussed and Patient agrees to continue as planned ADDITIONAL INFORMATION: Patient has been explained risk-benefit and alternative for the procedure. Patient understand 2% risk of stroke major bleed. Patient understand 5% risk of mild bleeding oozing infection hematoma contrast-induced nephropathy urgent or emergent vascular or CT surgery. Patient fully understood and agreed, she would like to proceed with it.
--- NOTE | 2025-03-02 07:32 | P.PCN_ITS ---
Procedure Note: Date of procedure: 03/02/25 Pre-procedure diagnosis: Unstable angina Post-procedure diagnosis: same Procedure: Left heart catheterization was performed Left main: Normal LAD: 2 layers of proximal stent with mild to moderate in-stent restenosis not the culprit vessel, Left circumflex: Groove circumflex is a small caliber vessel, OM is a large- caliber vessel with patent proximal stent however mid to distal significant ec centric 80% stenosis it is a culprit vessel RCA has luminal irregularity without significant stenosis PCI to mid to distal obtuse marginal with drug-eluting stent postdilated with noncompliant balloon. Plan: Continue dual antiplatelet therapy with Plavix 75 mg and aspirin 81 mg daily Bedrest for 4 hours Angio-Seal was placed in right common femoral artery IV fluid 100 mL/h for next 10 hours Full note to be dictated Coding Level of Care Code Acute Code for Gerson Morgan
[2025-03-02] MEDS: ferrous sulfate EC 325 mg Tablet PO ×2 (08:16→17:07)
[2025-03-02] MEDS: insulin glargine 100 units/1 mL 30 UNIT SUBCUT ×2 (08:17→17:08)
[2025-03-02] MEDS: fluticasone nasal spray 16gm Btl 1 SPRAY NASAL ×2 (08:17→17:03)
--- NOTE | 2025-03-02 09:22 | P.PN_ITS ---
<Statement entered by Sylvie Hightower MD - 03/02/25 20:01> Patient was evaluated and cared for in conjunction with an advanced practice practitioner. I personally examined the patient and reviewed the chart and all pertinent data including imaging, telemetry, and laboratory results. I discussed the patient in detail with the advanced practice practitioner. Please see their note for complete H&P testing result and agreed upon plan of care for the patient. Subjective 2 Subjective: She is comfortable, no chest pain. S/P OM stent today. No significant bradycardia. Vitals/I&O/Wt Last Vital Signs Temp 98.4 F 03/02/25 08:00 Pulse 84 03/02/25 09:00 Resp 21 H 03/02/25 09:00 BP 116/68 03/02/25 09:00 Pulse Ox 94 03/02/25 09:00 O2 Del Method Nasal Cannula 03/02/25 09:00 O2 Flow Rate 4 03/02/25 09:00 FiO2 3 03/02/25 05:52 03/01/25 03/02/25 03/02/25 22:59 06:59 14:59 Intake Total 555.798 / 1897.048 250 / 250 Output Total 1575 / 2250 675 / 2250 Balance -1019.202 / -352.952 -675 / -352.952 250 / 250 Weight last 48 hrs Weight 304 lb 3.806 oz Physical Exam 2 Const: COMMON NORMALS: no acute distress and patient oriented x3 GENERAL APPEARANCE: cooperative ORIENTATION/CONSCIOUSNESS: Yes awake, Yes oriented to person, Yes oriented to place and Yes oriented to time Chest: COMMONS NORMALS: normal inspection of the chest and normal palpation of entire chest wall CHEST: Yes Symmetrical chest wall rise Resp: COMMON NORMALS: normal respiratory effort, No retractions, No use of accessory muscles and clear to auscultation bilaterally AUSCULTATION: clear to auscultation bilaterally Cardio: COMMON NORMALS: regular rate, regular rhythm, S1 normal heart sound present, S2 normal heart sound present, No gallops present (Cardio), No clicks present (Cardio), No murmurs present (Cardio) and No rub (Cardio) RATE: r egular rate RHYTHM: regular rhythm HEART SOUNDS: S1 normal heart sound present and S2 normal heart sound present PERIPHERAL PULSES: radial pulses present positive right 2+ and femoral pulses present positive right 2+ Neuro: COMMON NORMALS: patient oriented x3 and moves all extremities S ENSORIUM/ORIENTATION: Yes oriented to person, Yes oriented to place and Yes oriented to time Skin: WOUNDS: Yes surgical site (no hematoma palpable) Details: no odor Urinary Catheter Management: Esposito: Cath Placed During This Visit: yes Reason for Continuing Indwelling Catheter: Accurate Measurement of Urinary Output in Critically Ill Patients Urinary Catheter Date of Insertion: 02/27/25 Urinary Catheter Time of Insertion: 01:12 Data 03/02/25 03:03 03/02/25 03:03 A&P Assessment and plan 1. Atherosclerotic heart disease of [place] coronary artery with other forms of angina pectoris: 2. Benign hypertension: 3. Hyperlipidemia: 4. Atrial fibrillation: 5. CKD (chronic kidney disease): Plan: Doing well s/p LHC this morning, EDD to OM. Continue asprin, Plavix, statin. Creatinine 1.5 today. PDMP PDMP Reviewed: Not Reviewed Attestations 2 Medical Necessity Statement*: post stent Coding Level of Care Code Acute Code for [facility] Diagnoses Atherosclerotic heart disease of [place] coronary artery with other forms of angina pectoris I25.118 Benign hypertension I10 Hyperlipidemia E78.5 Atrial fibrillation I48.91 CKD (chronic kidney disease) N18.9
--- NOTE | 2025-03-02 09:45 | P.PN_ITS ---
Subjective 2 Subjective: s/p LHC Medications: Reviewed: Yes Vitals/I&O/Wt Last Vital Signs Temp 98.4 F 03/02/25 08:00 Pulse 83 03/02/25 09:33 Resp 15 03/02/25 09:33 BP 116/68 03/02/25 09:00 Pulse Ox 92 03/02/25 09:33 O2 Del Method Nasal Cannula 03/02/25 09:33 O2 Flow Rate 4 03/02/25 09:33 FiO2 3 03/02/25 05:52 03/01/25 03/02/25 03/02/25 22:59 06:59 14:59 Intake Total 555.798 / 1897.048 250 / 250 Output Total 1575 / 1575 675 / 2250 Balance -1019.202 / 322.048 -675 / -352.952 250 / 250 Weight last 48 hrs Weight 138 kg Physical Exam 2 Narrative: Awake and alert, no distress No JVD PERRLA S1-S2 regular rate and rhythm Lungs with decreased breath sounds bilaterally Abdomen soft nontender extremities no pitting edema Skin no rash Urinary Catheter Management: Esposito: Cath Placed During This Visit: yes Reason for Continuing Indwelling Catheter: Accurate Measurement of Urinary Output in Critically Ill Patients Urinary Catheter Date of Insertion: 02/27/25 Urinary Catheter Time of Insertion: 01:12 Data 03/02/25 03:03 03/02/25 03:03 A&P Assessment and plan 1. Acute kidney injury: Plan: 1. Acute on chronic kidney disease stage3 : Baseline creatinine seems to be in the 1.5-1.9 range, creatinine slightly elevated at 2.1 currently. No obstruction, urine UA bland. - Continue IV fluids -s/p LHC - Cr improving 2. History of CHF, holding Lasix and spironolactone , Receiving IV fluids, prior ejection fraction of 45%, 3. Acute on chronic respiratory failure, multifactorial in the setting of restrictive lung disease and CHF, chronically on 3 L O2 4. Hyponatremia, mild, improved Patient evaluated using audiovisual cart. Time spent 40 minutes. PDMP PDMP Reviewed: Not Reviewed Attestations 2 Medical Necessity Statement*: per jane Coding Level of Care Code Acute Code for [facility] Fwd Diagnoses Acute kidney injury N17.9
[2025-03-02 10:37] LABS: Partial Thromboplastin Time 89.1 SECONDS (23.9-36.7)
--- NOTE | 2025-03-02 12:01 | PC.SOCIAL ---
IMM Updated Updated pt on IMM. No questions voiced. Provided pt a copy. Initialed, dated, & timed copy in chart.
--- NOTE | 2025-03-02 16:31 | P.PN_ITS ---
Subjective 2 Subjective: Patient was seen this morning, she is status post cardiac cath, cardiac stenting, denies any chest pain, no palpitations Vitals/I&O/Wt Last Vital Signs Temp 98.0 F 03/02/25 16:00 Pulse 77 03/02/25 16:00 Resp 16 03/02/25 16:00 BP 155/83 03/02/25 16:00 Pulse Ox 90 03/02/25 16:00 O2 Del Method Nasal Cannula 03/02/25 16:00 O2 Flow Rate 3 03/02/25 16:00 FiO2 3 03/02/25 05:52 03/02/25 03/02/25 03/02/25 06:59 14:59 22:59 Intake Total 550 / 550 Output Total 675 / 2250 Balance -675 / -352.952 550 / 550 Weight last 48 hrs Weight 139.706 kg Weight 138 kg Physical Exam 2 Const: COMMON NORMALS: no acute distress and patient oriented x3 Resp: COMMON NORMALS: normal respiratory effort, No retractions, No use of accessory muscles and clear to auscultation bilaterally AUSCULTATION: clear to auscultation bilaterally Cardio: COMMON NORMALS: regular rate, regular rhythm, S1 normal heart sound present and S2 normal heart sound present RATE: regular rate RHYTHM: r egular rhythm HEART SOUNDS: S1 normal heart sound present and S2 normal heart sound present GI: COMMON NORMALS: Normal to inspection, nondistended, normoactive bowel sounds present and non-tender Extremity: COMMON NORMALS: no pedal edema Neuro: COMMON NORMALS: patient oriented x3 Psych: COMMON NORMALS: mental status grossly normal Urinary Catheter Management: Esposito: Cath Placed During This Visit: yes Reason for Continuing Indwelling Catheter: Accurate Measurement of Urinary Output in Critically Ill Patients Urinary Catheter Date of Insertion: 02/27/25 Urinary Catheter Time of Insertion: 01:12 Data 03/02/25 03:03 03/02/25 03:03 A&P Assessment and plan 1. Sick sinus syndrome: 2. Persistent atrial fibrillation: 3. Chronic systolic dysfunction of left ventricle: 4. Unstable angina: 5. Benign hypertension: 6. Ischemic cardiomyopathy: 7. CKD (chronic kidney disease): 8. Hyperlipidemia: 9. Hypercholesteremia: 10. GOLDEN (dyspnea on exertion): 11. SOB (shortness of breath): 12. Sinus pause: 13. Tachy-justice syndrome: Plan: Shortness of breath, NSTEMI -With complaints of back pain -reports that her typical back pain is an indicator of her heart, whenever she has had her 10 stents placed in her heart, she is never had chest pain she has had back pain Status post coronary angiography LAD: 2 layers of proximal stent with mild to moderate in-stent restenosis not the culprit vessel, Left circumflex: Groove circumflex is a small caliber vessel, OM is a large- caliber vessel with patent proximal stent however mid to distal significant eccentric 80% stenosis it is a culprit vessel. PCI to mid to distal obtuse marginal with drug-eluting stent postdilated with noncompliant balloon. - Plan - Serial EKGs, serial troponins, telemetry monitoring - Aspirin, statin, Plavix, metoprolol - Therapeutic Lovenox -Creatinine 1.5, currently on IV fluid status post procedure - Cardiac echo pending - CT chest no acute findings - Type II days mellitus low-dose sliding scale - Decrease Lantus to 20 to twice daily - Hypothyroidism continue levothyroxine - Full code - Lovenox for DVT prophylaxis Tachybradycardia syndrome - With episodes of sinus pauses during the night, longest measuring 5 seconds, on a dopamine drip - Dopamine drip was then stopped, due to A-fib with RVR, she was given metoprolol, amiodarone - Subsequently developed sinus pause, bradycardia -Will hold dopamine today - Plans on possible permanent pacemaker placement and consideration of transfer based on clinical progress holding dopamine Plan for today IV fluids, monitor creatinine, status post coronary angiography and stent placement PDMP PDMP Reviewed: Not Reviewed Attestations 2 Medical Necessity Statement*: Patient requires hospitalization for shortness of breath, NSTEMI, status post cardiac stenting, tachybradycardia Diagnoses Sick sinus syndrome I49.5 Persistent atrial fibrillation I48.19 Atrial fibrillation type: persistent (not longstanding) Chronic systolic dysfunction of left ventricle I51.9 Unstable angina I20.0 Benign hypertension I10 Ischemic cardiomyopathy I25.5 CKD (chronic kidney disease) N18.4 Chronic kidney disease stage: stage 4 (GFR 15-29) Hyperlipidemia E78.5 Hypercholesteremia E78.00 GOLDEN (dyspnea on exertion) R06.09 SOB (shortness of breath) R06.02 Sinus pause I45.5 Tachy-justice syndrome I49.5
[2025-03-02] MEDS: pantoprazole 40 mg SDV IVP (17:03)
[2025-03-03] VITALS (21 sets, daily range): BP systolic 111–180; BP diastolic 64–91; PULSE 79–101; RESP 16–28; TEMP 36.5–36.9; O2SAT 89–94
[2025-03-03 03:57] LABS: Hematocrit 38.6 % (36-47); Hemoglobin 12.30 g/dL (11.27-16.99); Mean Corpuscular HGB Conc 31.9 g/dL (30-55); Mean Corpuscular Hemoglobin 29.9 pg (27-33); Mean Corpuscular Volume 93.7 fl (85-98); Nucleated Red Blood Cells % 0 %; Platelet Count 208 10^3/cmm (157-399); Red Blood Count 4.12 10^6/uL (3.85-5.65); White Blood Count 7.92 10^3/uL (3.29-11.43)
[2025-03-03 04:16] LABS: Anion Gap 13.8 (5-19); Blood Urea Nitrogen 27 mg/dL (8-23); Calcium 8.7 mg/dL (8.5-10.5); Carbon Dioxide 26 mmol/L (22-29); Chloride 101 mmol/L (98-107); Creatinine Clr Calc Pharmacy 59.8956; Glucose 235 mg/dL (65-115); Osmolality Calculated 295 mOsm/kg (285-295); Potassium 4.8 mmol/L (3.5-5.1); Sodium 136 mmol/L (136-145)
[2025-03-03] MEDS: insulin glargine 100 units/1 mL 30 UNIT SUBCUT ×2 (08:27→17:17)
[2025-03-03] MEDS: fluticasone nasal spray 16gm Btl 1 SPRAY NASAL ×2 (08:29→17:15)
[2025-03-03] MEDS: ferrous sulfate EC 325 mg Tablet PO ×2 (08:30→17:17)
--- NOTE | 2025-03-03 08:53 | P.PN_ITS ---
Subjective 2 Subjective: She has done well overnight, no pauses or bradycardia since starting metoprolol last night. No chest pain, has been sitting up in the chair for several hours this morning. Vitals/I&O/Wt Last Vital Signs Temp 97.7 F 03/03/25 05:00 Pulse 85 03/03/25 07:00 Resp 20 H 03/03/25 07:00 BP 169/79 03/03/25 07:00 Pulse Ox 90 03/03/25 07:00 O2 Del Method Nasal Cannula 03/03/25 07:00 O2 Flow Rate 3 03/03/25 07:00 FiO2 3 03/02/25 05:52 03/02/25 03/03/25 03/03/25 22:59 06:59 14:59 Intake Total 1350 / 2100 200 / 2100 Output Total 1200 / 1200 Balance 150 / 900 200 / 900 Weight last 48 hrs Weight 306 lb Weight 308 lb Physical Exam 2 Const: COMMON NORMALS: no acute distress and patient oriented x3 GENERAL APPEARANCE: cooperative ORIENTATION/CONSCIOUSNESS: Yes awake, Yes oriented to person, Yes oriented to place and Yes oriented to time Chest: COMMONS NORMALS: normal inspection of the chest and normal palpation of entire chest wall CHEST: Yes Symmetrical chest wall rise Resp: COMMON NORMALS: normal respiratory effort, No retractions, No use of accessory muscles and clear to auscultation bilaterally AUSCULTATION: clear to auscultation bilaterally Cardio: COMMON NORMALS: regular rate, regular rhythm, S1 normal heart sound present, S2 normal heart sound present, No gallops present (Cardio), No clicks present (Cardio), No murmurs present (Cardio) and No rub (Cardio) RATE: r egular rate RHYTHM: regular rhythm HEART SOUNDS: S1 normal heart sound present and S2 normal heart sound present PERIPHERAL PULSES: radial pulses present positive right 2+ and femoral pulses present positive right 2+ Neuro: COMMON NORMALS: patient oriented x3 and moves all extremities S ENSORIUM/ORIENTATION: Yes oriented to person, Yes oriented to place and Yes oriented to time Skin: WOUNDS: Yes surgical site (no hematoma palpable) Details: no odor Urinary Catheter Management: Esposito: Cath Placed During This Visit: yes, but has since been removed by the nurse Reason for Continuing Indwelling Catheter: Accurate Measurement of Urinary Output in Critically Ill Patients Urinary Catheter Date of Insertion: 02/27/25 Urinary Catheter Time of Insertion: 01:12 Date Urinary Catheter Removed: 03/03/25 Time Urinary Catheter Discontinued: 05:50 Data 03/03/25 03:34 03/03/25 03:34 A&P Assessment and plan 1. Atrial fibrillation: 2. Chronic heart failure with reduced ejection fraction and diastolic dysfunction: 3. CAD (coronary artery disease): Plan: She is doing well this morning, per Dr Hightower she will receive a dose of Lasix and will keep overnight to observe. Anticipate discharge tomorrow. Will request event monitor 14 days to be placed at discharge. Continue metoprolol 25 mg BID. Hold diltiazem. Continue aspirin and Plavix, statin. Creatinine improved to 1.3 today. Echocardiogram pending read. PDMP PDMP Reviewed: Not Reviewed Attestations 2 Medical Necessity Statement*: [place] home tomorrow Coding Level of Care Code Acute Code for [facility] Fwd Diagnoses Atrial fibrillation I48.91 Chronic heart failure with reduced ejection fraction and diastolic dysfunction I50.42 CAD (coronary artery disease) I25.10
[2025-03-03] MEDS: FUROsemide 10 mg/mL SDV 4mL 40 MG IVP ×2 (09:17→17:16)
[2025-03-03] MEDS: polyethylene glycol 3350 Pkt 17 gm PO (13:10)
--- NOTE | 2025-03-03 14:20 | P.PN_ITS ---
Vitals/I&O/Wt Last Vital Signs Temp 98.4 F 03/03/25 12:00 Pulse 84 03/03/25 12:00 Resp 28 H 03/03/25 12:00 BP 147/88 03/03/25 12:00 Pulse Ox 92 03/03/25 12:00 O2 Del Method Nasal Cannula 03/03/25 12:00 O2 Flow Rate 3 03/03/25 12:00 FiO2 3 03/02/25 05:52 03/02/25 03/03/25 03/03/25 22:59 06:59 14:59 Intake Total 1350 / 1900 200 / 2100 450 / 450 Output Total 1200 / 1200 Balance 150 / 700 200 / 900 450 / 450 Weight last 48 hrs Weight 138.799 kg Weight 139.706 kg Physical Exam 2 Const: COMMON NORMALS: no acute distress and patient oriented x3 Resp: COMMON NORMALS: normal respiratory effort, No retractions and No use of accessory muscles AUSCULTATION: crackles and wheezes Cardio: COMMON NORMALS: regular rate, regular rhythm, S1 normal heart sound present and S2 normal heart sound present RATE: regular rate RHYTHM: r egular rhythm HEART SOUNDS: S1 normal heart sound present and S2 normal heart sound present GI: COMMON NORMALS: Normal to inspection, nondistended, normoactive bowel sounds present and non-tender Extremity: NARRATIVE EXTREMITY EXAM: 2 Plus pitting edema Neuro: COMMON NORMALS: patient oriented x3 Psych: COMMON NORMALS: mental status grossly normal Urinary Catheter Management: Esposito: Cath Placed During This Visit: yes, but has since been removed by the nurse Reason for Continuing Indwelling Catheter: Accurate Measurement of Urinary Output in Critically Ill Patients Urinary Catheter Date of Insertion: 02/27/25 Urinary Catheter Time of Insertion: 01:12 Date Urinary Catheter Removed: 03/03/25 Time Urinary Catheter Discontinued: 05:50 Data 03/03/25 03:34 03/03/25 03:34 A&P Assessment and plan 1. Sick sinus syndrome: 2. Persistent atrial fibrillation: 3. Chronic systolic dysfunction of left ventricle: 4. Unstable angina: 5. Benign hypertension: 6. Ischemic cardiomyopathy: 7. CKD (chronic kidney disease): 8. Hyperlipidemia: 9. Hypercholesteremia: 10. GOLDEN (dyspnea on exertion): 11. SOB (shortness of breath): 12. Sinus pause: 13. Tachy-justice syndrome: Plan: Shortness of breath, NSTEMI -With complaints of back pain -reports that her typical back pain is an indicator of her heart, whenever she has had her 10 stents placed in her heart, she is never had chest pain she has had back pain Status post coronary angiography LAD: 2 layers of proximal stent with mild to moderate in-stent restenosis not the culprit vessel, Left circumflex: Groove circumflex is a small caliber vessel, OM is a large- caliber vessel with patent proximal stent however mid to distal significant eccentric 80% stenosis it is a culprit vessel. PCI to mid to distal obtuse marginal with drug-eluting stent postdilated with noncompliant balloon. - Plan - Serial EKGs, serial troponins, telemetry monitoring - Aspirin, statin, Plavix, metoprolol - Therapeutic Lovenox -Creatinine 1.3, start IV diuresis - Cardiac echo pending - CT chest no acute findings - Type II days mellitus low-dose sliding scale - Decrease Lantus to 20 to twice daily - Hypothyroidism continue levothyroxine - Full code - Lovenox for DVT prophylaxis History of atrial fibrillation, on Eliquis at home - Currently on therapeutic Lovenox Fluid overload, shortness of breath, pitting edema, crackles, systolic CHF exacerbation - Lasix 40 IV twice daily - Monitor output, creatinine Tachybradycardia syndrome - With episodes of sinus pauses during the night, longest measuring 5 seconds, on a dopamine drip - Dopamine drip was then stopped, due to A-fib with RVR, she was given metoprolol, amiodarone - Subsequently developed sinus pause, bradycardia - Dopamine held overnight - Plans on possible permanent pacemaker placement and consideration of transfer based on clinical progress holding dopamine Plan for today IV diuresis PDMP PDMP Reviewed: Not Reviewed Attestations 2 Medical Necessity Statement*: Okay let you patient requires hospitalization for NSTEMI, fluid overload, CHF exacerbation requiring IV diuresis Diagnoses Sick sinus syndrome I49.5 Persistent atrial fibrillation I48.19 Atrial fibrillation type: persistent (not longstanding) Chronic systolic dysfunction of left ventricle I51.9 Unstable angina I20.0 Benign hypertension I10 Ischemic cardiomyopathy I25.5 CKD (chronic kidney disease) N18.4 Chronic kidney disease stage: stage 4 (GFR 15-29) Hyperlipidemia E78.5 Hypercholesteremia E78.00 GOLDEN (dyspnea on exertion) R06.09 SOB (shortness of breath) R06.02 Sinus pause I45.5 Tachy-justice syndrome I49.5
[2025-03-03] MEDS: pantoprazole 40 mg SDV IVP (17:14)
--- NOTE | 2025-03-03 18:30 | P.PN_ITS ---
Subjective 2 Subjective: c/o sob IVfs stopped and started on lasix Medications: Reviewed: Yes Vitals/I&O/Wt Last Vital Signs Temp 98.2 F 03/03/25 16:00 Pulse 81 03/03/25 16:00 Resp 28 H 03/03/25 16:00 BP 117/81 03/03/25 16:00 Pulse Ox 90 03/03/25 16:00 O2 Del Method Nasal Cannula 03/03/25 16:00 O2 Flow Rate 3 03/03/25 16:00 FiO2 3 03/02/25 05:52 03/03/25 03/03/25 03/03/25 06:59 14:59 22:59 Intake Total 200 / 2100 450 / 450 200 / 650 Balance 200 / 900 450 / 450 200 / 650 Weight last 48 hrs Weight 138.799 kg Weight 139.706 kg Physical Exam 2 Const: COMMON NORMALS: no acute distress Resp: COMMON NORMALS: normal respiratory effort, No use of accessory muscles and clear to auscultation bilaterally AUSCULTATION: clear to auscultation bilaterally Cardio: COMMON NORMALS: regular rate, regular rhythm, S1 normal heart sound present and S2 normal heart sound present RATE: regular rate RHYTHM: r egular rhythm HEART SOUNDS: S1 normal heart sound present and S2 normal heart sound present GI: COMMON NORMALS: Normal to inspection, nondistended, normoactive bowel sounds present and non-tender Extremity: COMMON NORMALS: no pedal edema Psych: COMMON NORMALS: mental status grossly normal Urinary Catheter Management: Esposito: Cath Placed During This Visit: yes, but has since been removed by the nurse Reason for Continuing Indwelling Catheter: Accurate Measurement of Urinary Output in Critically Ill Patients Urinary Catheter Date of Insertion: 02/27/25 Urinary Catheter Time of Insertion: 01:12 Date Urinary Catheter Removed: 03/03/25 Time Urinary Catheter Discontinued: 05:50 Data 03/03/25 03:34 03/03/25 03:34 A&P Assessment and plan 1. Acute kidney injury: Plan: 1. Acute on chronic kidney disease stage3 : Baseline creatinine seems to be in the 1.5-1.9 range, creatinine slightly elevated at 2.1 currently. No obstruction, urine UA bland. - s/p IV fluids -s/p LHC , s/p iv lasix - can resume home diuretics - Cr improving 2. History of CHF, holding Lasix and spironolactone prior ejection fraction of 45%, 3. Acute on chronic respiratory failure, multifactorial in the setting of restrictive lung disease and CHF, chronically on 3 L O2 4. Hyponatremia, mild, improved Patient evaluated using audiovisual cart. Time spent 40 minutes. PDMP PDMP Reviewed: Not Reviewed Attestations 2 Medical Necessity Statement*: per medicine Coding Level of Care Code Acute Code for [facility] Diagnoses Acute kidney injury N17.9
[2025-03-04] VITALS (12 sets, daily range): BP systolic 151–168; BP diastolic 66–84; PULSE 76–96; RESP 16–28; TEMP 36.2–37; O2SAT 89–94
[2025-03-04 04:52] LABS: Hematocrit 37.5 % (36-47); Hemoglobin 11.90 g/dL (11.27-16.99); Mean Corpuscular HGB Conc 31.7 g/dL (30-55); Mean Corpuscular Hemoglobin 29.2 pg (27-33); Mean Corpuscular Volume 92.1 fl (85-98); Nucleated Red Blood Cells % 0 %; Platelet Count 210 10^3/cmm (157-399); Red Blood Count 4.07 10^6/uL (3.85-5.65); White Blood Count 7.40 10^3/uL (3.29-11.43)
[2025-03-04 05:23] LABS: Anion Gap 13.2 (5-19); Blood Urea Nitrogen 25 mg/dL (8-23); Calcium 8.9 mg/dL (8.5-10.5); Carbon Dioxide 29 mmol/L (22-29); Chloride 102 mmol/L (98-107); Creatinine Clr Calc Pharmacy 55.1676; Glucose 209 mg/dL (65-115); Osmolality Calculated 301 mOsm/kg (285-295); Potassium 4.2 mmol/L (3.5-5.1); Sodium 140 mmol/L (136-145)
[2025-03-04] MEDS: ferrous sulfate EC 325 mg Tablet PO (08:37)
[2025-03-04] MEDS: insulin glargine 100 units/1 mL 30 UNIT SUBCUT (08:38)
[2025-03-04] MEDS: fluticasone nasal spray 16gm Btl 1 SPRAY NASAL (08:39)
--- NOTE | 2025-03-04 09:13 | P.PN_ITS ---
<Statement entered by Seth Santillan M.D - 03/07/25 10:15> Patient was cared for in conjunction with an advanced practice practitioner.? I reviewed the chart and all pertinent data including imaging, telemetry, and laboratory results.? I discussed the patient in detail with the advanced practice practitioner.? Please see?their note for progress note, testing results and agreed upon plan of care for the patient. Subjective 2 Subjective: She has lost 3 pounds, urine output 2750mL, net negative 800mL as of this morning. She notes her breathing has improved from yesterday. No pauses or bradycardia overnight. Currently in sinus rhythm. Vitals/I&O/Wt Last Vital Signs Temp 98.0 F 03/04/25 04:00 Pulse 84 03/04/25 08:54 Resp 16 03/04/25 08:54 BP 163/78 03/04/25 06:00 Pulse Ox 94 03/04/25 08:54 O2 Del Method Nasal Cannula 03/04/25 08:54 O2 Flow Rate 4 03/04/25 08:54 FiO2 3 03/02/25 05:52 03/03/25 03/04/25 03/04/25 22:59 06:59 14:59 Intake Total 300 / 950 200 / 950 Output Total 900 / 1550 650 / 1550 Balance -600 / -600 -450 / -600 Weight last 48 hrs Weight 303 lb 12.8 oz Weight 306 lb Weight 308 lb Physical Exam 2 Const: COMMON NORMALS: no acute distress and patient oriented x3 GENERAL APPEARANCE: cooperative and comfortable ORIENTATION/CONSCIOUSNESS: Yes awake, Yes oriented to person, Yes oriented to place and Yes oriented to time Chest: COMMONS NORMALS: normal inspection of the chest and normal palpation of entire chest wall CHEST: Yes Symmetrical chest wall rise Resp: COMMON NORMALS: normal respiratory effort, No retractions, No use of accessory muscles and clear to auscultation bilaterally EFFORT & INSPECTION: Yes symmetric chest movement AUSCULTATION: clear to auscultation bilaterally Cardio: COMMON NORMALS: regular rate, regular rhythm, S1 normal heart sound present, S2 normal heart sound present, No gallops present (Cardio), No clicks present (Cardio), No murmurs present (Cardio) and No rub (Cardio) RATE: r egular rate RHYTHM: regular rhythm HEART SOUNDS: S1 normal heart sound present and S2 normal heart sound present PERIPHERAL PULSES: radial pulses present Extremity: COMMON NORMALS: no pedal edema Neuro: COMMON NORMALS: patient oriented x3 and moves all extremities S ENSORIUM/ORIENTATION: Yes oriented to person, Yes oriented to place and Yes oriented to time Urinary Catheter Management: Esposito: Cath Placed During This Visit: yes, but has since been removed by the nurse Reason for Continuing Indwelling Catheter: Accurate Measurement of Urinary Output in Critically Ill Patients Urinary Catheter Date of Insertion: 02/27/25 Urinary Catheter Time of Insertion: 01:12 Date Urinary Catheter Removed: 03/03/25 Time Urinary Catheter Discontinued: 05:50 Data 03/04/25 03:58 03/04/25 03:58 A&P Assessment and plan 1. CAD (coronary artery disease): 2. Atrial fibrillation: 3. Tachy-justice syndrome: 4. Benign hypertension: 5. Diabetes type 2, uncontrolled: 6. CKD (chronic kidney disease): 7. COPD (chronic obstructive pulmonary disease): 8. ALONDRA (obstructive sleep apnea): 9. Physical deconditioning: Plan: She is doing well, diuresed overnight. She is not very mobile at home, appears deconditioned. She has dyspnea on exertion due to inactivity as well as COPD. Appears euvolemic, echocardiogram read this morning shows normal LVEF and no significant valvular abnormalities. No RVR with exertion. She can discharge home today on metoprolol 25 mg BID, utilizing event monitor to assess for recurrence of pauses or tachybrady syndrome which would require pacemaker placement. Resume Eliquis. Hold diltiazem. Continue Lasix 40mg BID at discharge. PDMP PDMP Reviewed: Not Reviewed Attestations 2 Medical Necessity Statement*: [place] home Coding Level of Care Code Acute Code for [facility] Fwd Diagnoses CAD (coronary artery disease) I25.10 Atrial fibrillation I48.91 Tachy-justice syndrome I49.5 Benign hypertension I10 Diabetes type 2, uncontrolled CKD (chronic kidney disease) N18.9 COPD (chronic obstructive pulmonary disease) J44.9 ALONDRA (obstructive sleep apnea) G47.33 Physical deconditioning R53.81
--- NOTE | 2025-03-04 11:12 | PM.DCS ---
Discharge Providers Date of Admission: 02/26/25 16:26 Date of Discharge: March 04, 2025 Attending Provider at Admission: Jamel Alicea MD Attending Provider at Discharge: Jamel Alicea MD Primary Care Provider: Farhat Acosta MD Diagnoses at Discharge Discharge Diagnosis 1. CAD (coronary artery disease): 2. Persistent atrial fibrillation: 3. Tachy-justice syndrome: 4. Benign hypertension: 5. Diabetes type 2, uncontrolled: 6. CKD (chronic kidney disease): 7. COPD (chronic obstructive pulmonary disease): 8. ALONDRA (obstructive sleep apnea): 9. Physical deconditioning: Reason for Visit Reason for Visit: chest pain Hospital Course Hospital Course This is a 69-year-old female who has a past medical history of atrial fibrillation on Eliquis, CKD, who presents [facility] for shortness of breath Patient presented to [facility] for shortness of breath, NSTEMI, medically managed, cardiology consulted, required nephrology consultation due to [place], creatinine improved with fluid therapy, status post coronary angiography, status post stenting to mid to distal obtuse marginal, no recurrent chest pain will be discharged on aspirin, Plavix, Eliquis with close follow-up with primary care provider as outpatient Patient's hospitalization was complicated with acute kidney injury, improved with IV fluids, creatinine 1.4 on discharge Patient's hospitalization was complicated by fluid overload requiring IV diuresis, overall clinically improved discharged on Lasix 40 twice daily with potassium replacement therapy Patient's hospitalization was complicated by tachybradycardia syndrome, with episodes of sinus pauses, requiring dopamine drip. Thought to be associated with metoprolol, diltiazem. She was monitored as inpatient, weaned off dopamine drip, placed on trial of beta-kana, no recurrent episodes of bradycardia or sinus pauses. Nonetheless we will discharge with event monitor in place, with close follow-up cardiology as outpatient. Patient was advised if she has any lightheadedness, dizziness, to be in the go to the emergency room. Initially there was plans on consideration of pacemaker placement, given her sinus pause and bradycardia, however she has been monitored as inpatient, off the dopamine drip, and has not had any recurrent episodes of sinus pause or bradycardia or symptomatology. Patient was advised if she were to have recurrent sinus pauses/bradycardia/symptomatology, she will likely need transferred to tertiary [facility] for pacemaker placement Physical Exam Const: COMMON NORMALS: no acute distress and patient oriented x3 Resp: COMMON NORMALS: normal respiratory effort, No retractions, No use of accessory muscles and clear to auscultation bilaterally AUSCULTATION: clear to auscultation bilaterally Cardio: COMMON NORMALS: regular rate, regular rhythm, S1 normal heart sound present and S2 normal heart sound present RATE: regular rate RHYTHM: regular rhythm HEART SOUNDS: S1 normal heart sound present and S2 normal heart sound present GI: COMMON NORMALS: Normal to inspection, nondistended, normoactive bowel sounds present and non-tender Extremity: COMMON NORMALS: no pedal edema Neuro: COMMON NORMALS: patient oriented x3 and moves all extremities Psych: COMMON NORMALS: mental status grossly normal Urinary Catheter Management: Esposito: Cath Placed During This Visit: yes, but has since been removed by the nurse Reason for Continuing Indwelling Catheter: Accurate Measurement of Urinary Output in Critically Ill Patients Urinary Catheter Date of Insertion: 02/27/25 Urinary Catheter Time of Insertion: 01:12 Date Urinary Catheter Removed: 03/03/25 Time Urinary Catheter Discontinued: 05:50 Discharge Data Studies Completed and Pending Completed Studies During Hospitalization Category Date Time Status CT chest wo con [id number] Routine Cat Scan 02/27/25 07:00 Completed XR chest 1V portable [id number] Stat Exams 02/26/25 12:33 Completed US renal BI* [id number] Routine Ultrasound 02/28/25 11:22 Completed Pending at discharge Category Date Time Status CAKE MIXER request for service Routine Exams 03/02/25 05:20 Taken Basic Metabolic Panel AM LABS Lab 03/05/25 04:00 Ordered Complete Blood Count w/Auto AM LABS Lab 03/05/25 04:00 Ordered CV. echo complete* [id number] Stat Ultrasound 02/27/25 16:32 Taken Radiology Impressions Chest X-Ray 02/26/25 12:33 IMPRESSION: No acute findings. Chest CT 02/27/25 07:00 IMPRESSION: 1. Moderate chronic emphysematous changes. No acute pulmonary infiltrates. 2. Moderate thoracic kyphosis with ankylosis and osteopenia. 3. Aberrant RIGHT subclavian artery. 4. No other acute findings. Renal Ultrasound 02/28/25 11:22 IMPRESSION: 1. No evidence of renal upper tract pathology. 2. Essentially nonvisualization of the urinary bladder due to drainage by urinary catheter. Laboratory Results WBC 7.40 10^3/uL (3.29-11.43) 03/04/25 03:58 RBC 4.07 10^6/uL (3.85-5.65) 03/04/25 03:58 Hgb 11.90 g/dL (11.27-16.99) 03/04/25 03:58 Hct 37.5 % (36-47) 03/04/25 03:58 MCV 92.1 fl (85-98) 03/04/25 03:58 MCH 29.2 pg (27-33) 03/04/25 03:58 MCHC 31.7 g/dL (30-55) 03/04/25 03:58 RDW 15.9 % (12.1-15.1) H 03/04/25 03:58 Plt Count 210 10^3/cmm (157-399) 03/04/25 03:58 MPV 10.9 fL (7.4-10.4) H 03/04/25 03:58 Neut % (Auto) 63.9 % 03/04/25 03:58 Lymph % (Auto) 18.1 % 03/04/25 03:58 [place] % (Auto) 9.7 % 03/04/25 03:58 Eos % (Auto) 6.1 % 03/04/25 03:58 Baso % (Auto) 0.7 % 03/04/25 03:58 Neut # (Auto) 4.73 10^3/uL (1.8-7.7) 03/04/25 03:58 Lymph # (Auto) 1.3 10^3/uL (0.8-4.8) 03/04/25 03:58 [place] # (Auto) 0.7 10^3/uL (0.2-0.9) 03/04/25 03:58 Eos # (Auto) 0.5 10^3/uL (0.0-0.8) 03/04/25 03:58 Baso # (Auto) 0.1 10^3/uL (0.0-0.1) 03/04/25 03:58 Nucleated RBC % (auto) 0 % 03/04/25 03:58 Nucleated RBCs # 0.0 /100WBC 03/04/25 03:58 PT 15.50 SECONDS (12.1-14.9) H 02/26/25 12:42 INR 1.15 (0.8-1.2) 02/26/25 12:42 APTT 89.1 SECONDS (23.9-36.7) H 03/02/25 09:46 Sodium 140 mmol/L (136-145) 03/04/25 03:58 Potassium 4.2 mmol/L (3.5-5.1) 03/04/25 03:58 Chloride 102 mmol/L (98-107) 03/04/25 03:58 Carbon Dioxide 29 mmol/L (22-29) 03/04/25 03:58 Anion Gap 13.2 (5-19) 03/04/25 03:58 BUN 25 mg/dL (8-23) H 03/04/25 03:58 Creatinine 1.4 mg/dL (0.5-0.9) H 03/04/25 03:58 GFR Calculation 37.2 mL/min (90-130) L 03/04/25 03:58 Glucose 209 mg/dL (65-115) H 03/04/25 03:58 POC Glucose 203 mg/dL (70-110) H 03/04/25 07:38 Estimat Average Glucose 220 02/26/25 17:45 Hemoglobin A1c 9.3 % (4.0-6.0) H 02/26/25 17:45 Calculated Osmolality 301 mOsm/kg (285-295) H 03/04/25 03:58 Calcium 8.9 mg/dL (8.5-10.5) 03/04/25 03:58 Total Bilirubin 0.5 mg/dL (0.15-1.2) 02/27/25 02:27 AST 11 U/L (0-32) 02/27/25 02:27 ALT 17 U/L (0-33) 02/27/25 02:27 Alkaline Phosphatase 92 U/L (35-105) 02/27/25 02:27 Troponin T Baseline 25 ng/L (0-10) H 02/26/25 12:42 Troponin T 120 Minute 23.44 ng/L (0-10) H 02/26/25 14:42 Delta Troponin T -1.56 ABS# (0-10) L 02/26/25 14:42 Troponin T Hi Sens 6Hr 21.88 ng/L (0-10) H 02/26/25 17:45 Troponin T Hi Sens 6Hr Delta -3.12 ng/L (0-12) L 02/26/25 17:45 Total Protein 6.6 g/dL (6.6-8.7) 02/27/25 02:27 Albumin 3.8 g/dL (3.5-5.2) 02/27/25 02:27 Globulin 2.8 g/dL (1.3-4.6) 02/27/25 02:27 Triglycerides 496 mg/dL (0-150) H 02/26/25 17:45 Cholesterol 204 mg/dL (0-200) H 02/26/25 17:45 LDL Cholesterol Direct 111 mg/dL (0-100) H 02/26/25 17:45 LDL Cholesterol, Calc Not Reportable 02/26/25 17:45 HDL Cholesterol 32 mg/dL (60-100) L 02/26/25 17:45 LDL/HDL Ratio Not Reportable 02/26/25 17:45 Cholesterol/HDL Ratio 6.38 mg/dL (0.0-4.40) H 02/26/25 17:45 TSH 2.03 uIU/mL (0.27-4.20) 02/26/25 17:45 Urine Color Yellow (Yellow) 02/27/25 01:06 Urine Appearance Clear (CLEAR) 02/27/25 01:06 Urine pH 5.5 (5-7) 02/27/25 01:06 Ur Specific Diana 1.013 (1.005-1.030) 02/27/25 01:06 Urine Protein Negative (Negative) 02/27/25 01:06 Urine Glucose (UA) 2+ (Normal) H 02/27/25 01:06 Urine Ketones Negative (Negative) 02/27/25 01:06 Urine Blood Negative (Negative) 02/27/25 01:06 Urine Nitrate Negative (Negative) 02/27/25 01:06 Urine Bilirubin Negative (Negative) 02/27/25 01:06 Urine Urobilinogen 0.2 mg/dL (Negative) 02/27/25 01:06 Ur Leukocyte Esterase Negative (Negative) 02/27/25 01:06 Urine RBC 0-2 /hpf (0-2) 02/27/25 01:06 Urine WBC 0-5 /hpf (0-5) 02/27/25 01:06 Ur Squamous Epith Cells 0-5 /hpf (0-5) 02/27/25 01:06 Amorphous Sediment Not Reportable 02/27/25 01:06 Urine Bacteria None seen /hpf (NONE) 02/27/25 01:06 Hyaline Casts 0.40 /lpf 02/27/25 01:06 Vitals Last Vital Signs Temp 97.1 F L 03/04/25 07:30 Pulse 96 03/04/25 10:30 Resp 28 H 03/04/25 10:30 BP 156/81 03/04/25 10:30 Pulse Ox 90 03/04/25 09:30 O2 Del Method Nasal Cannula 03/04/25 10:30 O2 Flow Rate 3 03/04/25 10:30 FiO2 3 03/02/25 05:52 Discharge Plan Discharge Patient Disposition: Home Condition: Stable Prescriptions: New aspirin 81 mg Tablet,Delayed Release (Dr/Ec) 81 mg PO DAILY 30 Days Qty: 30 0RF metoprolol tartrate 25 mg Tablet 25 mg PO BID@0900,2100 30 Days Qty: 30 0RF insulin aspart U-100 [Novolog FlexPen U-100 Insulin] 100 unit/mL (3 mL) insulin pen See Rx Instructions .ROUTE .COMPLEX Qty: 15 0RF Rx Instructions: Inject, subcut, 3 times daily, after meals, based on low-dose sliding scale Continued nitroglycerin [Nitrostat] 0.4 mg tablet, sublingual 0.4 mg SUBLINGUAL Q5M PRN (Reason: Chest Pain) Qty: 30 6RF Rx Instructions: do not exceed 3 doses per episode isosorbide mononitrate 30 mg tablet extended release 24 hr 30 mg PO DAILY Qty: 30 5RF cyanocobalamin (vitamin B-12) [Vitamin B-12] 1,000 mcg tablet 1,000 mcg PO DAILY Qty: 30 6RF cholecalciferol (vitamin D3) 50 mcg (2,000 unit) capsule 50 mcg PO DAILY Qty: 30 6RF clopidogrel 75 mg tablet 75 mg PO DAILY Qty: 90 3RF spironolactone 25 mg tablet 25 mg PO DAILY Qty: 30 6RF allopurinol 300 mg tablet 300 mg PO DAILY Qty: 90 3RF potassium chloride 20 mEq tablet,ER particles/crystals 20 meq PO BID Qty: 180 3RF pregabalin 50 mg capsule 50 mg PO BID Qty: 60 5RF lorazepam 1 mg tablet 1 mg PO BID PRN (Reason: anxiety) Qty: 60 2RF dulaglutide 1.5 mg/0.5 mL pen injector 1.5 mg SUBCUT Q7D Qty: 2 3RF Rx Instructions: Sunday' ferrous sulfate 325 mg (65 mg iron) tablet 325 mg PO BID Qty: 60 3RF Trintellix 10 mg tablet 10 mg PO DAILY Qty: 30 3RF buspirone 10 mg tablet 10 mg PO TID Qty: 90 6RF acetaminophen 500 mg Tablet 1,000 mg PO Q6H PRN (Reason: Pain) hydralazine 25 mg tablet 25 mg PO TID PRN (Reason: high bp) levothyroxine 50 mcg tablet 50 mcg PO QAM budesonide 0.5 mg/2 mL suspension for nebulization 0.5 mg inhalation BID PRN (Reason: COPD) apixaban 5 mg tablet 5 mg PO BID Qty: 180 3RF Rx Instructions: start tonight atorvastatin [Lipitor] 40 mg tablet 40 mg PO DAILY 30 Days Qty: 30 3RF Changed insulin glargine [Lantus Solostar U-100 Insulin] 100 unit/mL (3 mL) insulin pen 30 unit SUBCUT BID Qty: 60 6RF furosemide 40 mg tablet 40 mg PO BID 30 Days Qty: 60 0RF Discontinued diltiazem HCl 120 mg capsule,extended release 24hr 120 mg PO DAILY Qty: 90 3RF metoprolol tartrate 100 mg tablet 100 mg PO BID Qty: 180 3RF No Action (DME) Manual wheelchair See Rx Instructions .Route .MEDSUPPLY Qty: 1 0RF Rx Instructions: As directed (DME) Coloplast Skin Barrier 6 X 6 wafer See Rx Instructions .Route Qty: 60 6RF Rx Instructions: As directed - change dressing daily (DME) FreeStyle Lou 14 Day [place] Misc See Rx Instructions .Route Qty: 2 12RF Rx Instructions: As directed (DME) FreeStyle Lou 14 Day Sensor Kit See Rx Instructions .Route Qty: 2 11RF Rx Instructions: As directed (DME) insulin syringe-needle U-100 1 mL 29 gauge x 1/2 syringe See Rx Instructions .Route Qty: 100 6RF Rx Instructions: As directed to inject insulin 2-3x/day (DME) pen needle, diabetic [TechLITE Pen Needle] 31 gauge x 5/16 needle See Rx Instructions .ROUTE .MEDSUPPLY Qty: 100 6RF Rx Instructions: As directed Budget Specialist OK for DC: Cardiology Other Ambulatory Orders: MCT/Event Monitor 30 Days (Routine) Timeframe: 1 Day Facility: [facility] - Location: Radiology Ordered By: Jamel Alicea Referrals: Farhat Acosta MD [Primary Care Provider, Family Practice] Discharge Diet: Cardiac Discharge Activity: Resume usual activity Patient Instructions: Coronary Artery Disease (DC), Coronary Angioplasty (DC), Sick Sinus Syndrome (DC), Opioid Safety, Post Angiogram Home Care Instructions, Patient Portal & Kiersten Instructions Activity Restrictions/Additional Instructions: -Please monitor your blood sugars closely -Monitor your blood sugars 3 times daily as after meals -Please record your blood sugars, and a blood sugar log -For your NovoLog -Please inject blood sugar after meals based on sliding scale provided -Do not inject insulin if you do not eat as hypoglycemia kills -This is a NovoLog sliding scale -Insulin sliding ?fingerstick? Insulin ?141-180?0 units/sq 181-220?2 units/sq ?221-260?4 units/sq ?261-300 6 units/sq ?301-350?8 units/sq ?351-400 10 units/sq ?401-450?12 units/sq >450? 14units/sq -If your blood sugar is greater than 500 go to the emergency room -If your blood sugar is less than 60 or at anytime you feel lightheaded or dizzy or diaphoretic or have chest palpitations check your blood sugar, and eat a hard candy or drink orange juice and go immediately to the emergency room -Remember hypoglycemia kills, so if his blood sugar is less than 60 we have to increase it by taking in a sugary meal such as a hard candy or orange juice and go to the emergency room -If you have any questions please call us where here to help - Lantus 30 units twice daily - Please take aspirin, Plavix, as prescribed - Start Eliquis tonight - If any recurrent chest pain go to the emergency room Discharge Attestations Time Spent in Discharge Care*: greater than 30 min Status at Discharge: Cognitive status at discharge: cognitively intact, Behavioral status at discharge: cooperative, Quality Metrics Clinical Quality Measures [ No reported AMI, CVA or VTE this stay] Coding Level of Care Code 55757 Total time (in minutes) for Discharge: 45 Diagnoses CAD (coronary artery disease) I25.10 Persistent atrial fibrillation I48.19 Atrial fibrillation type: persistent (not longstanding) Tachy-justice syndrome I49.5 Benign hypertension I10 Diabetes type 2, uncontrolled E11.65 Glycemic state: with hyperglycemia CKD (chronic kidney disease) N18.4 Chronic kidney disease stage: stage 4 (GFR 15-29) COPD (chronic obstructive pulmonary disease) J44.9 COPD type: emphysema ALONDRA (obstructive sleep apnea) G47.33 Physical deconditioning R53.81
--- NOTE | 2025-03-04 11:29 | PC.NURSE ---
Pt ambulated approx 75 ft using a wheeled walker. Oxygen at 4lpm/NC. NO ectopy noted on monitor. O2 sats stayed above 89%. Pt denied shortness of breath and/or dizziness. Pt stopped and sat midway due to back pain. Conditions for discharge met.
--- NOTE | 2025-03-04 11:53 | PC.NURSE ---
Heart monitor instructions provided and discussed. Monitor on Pt verbalized understanding.
--- NOTE | 2025-03-04 12:30 | PC.NURSE ---
Discharge instructions provided. Discussed medications, including sliding scale for insulin, appt, heart monitor, chest pain stoplight, and oxygen. Pt stated she would read the other education materials at home. Pt to front entrance via W/C. D/C home in [facility].
--- NOTE | 2025-03-04 15:57 | P.PN_ITS ---
Subjective 2 Subjective: no new complaints Medications: Reviewed: Yes Vitals/I&O/Wt Last Vital Signs Temp 98.6 F 03/04/25 12:11 Pulse 81 03/04/25 12:11 Resp 21 H 03/04/25 12:11 BP 156/81 03/04/25 12:11 Pulse Ox 91 03/04/25 12:11 O2 Del Method Nasal Cannula 03/04/25 11:00 O2 Flow Rate 4 03/04/25 11:00 FiO2 3 03/02/25 05:52 03/04/25 03/04/25 03/04/25 06:59 14:59 22:59 Intake Total 200 / 950 400 / 400 Output Total 650 / 1550 Balance -450 / -600 400 / 400 Weight last 48 hrs Weight 137.801 kg Weight 138.799 kg Physical Exam 2 Const: COMMON NORMALS: no acute distress Resp: COMMON NORMALS: normal respiratory effort, No use of accessory muscles and clear to auscultation bilaterally AUSCULTATION: clear to auscultation bilaterally Cardio: COMMON NORMALS: regular rate, regular rhythm, S1 normal heart sound present and S2 normal heart sound present RATE: regular rate RHYTHM: r egular rhythm HEART SOUNDS: S1 normal heart sound present and S2 normal heart sound present GI: COMMON NORMALS: Normal to inspection, nondistended, normoactive bowel sounds present and non-tender Extremity: COMMON NORMALS: no pedal edema Psych: COMMON NORMALS: mental status grossly normal Urinary Catheter Management: Esposito: Cath Placed During This Visit: yes, but has since been removed by the nurse Reason for Continuing Indwelling Catheter: Accurate Measurement of Urinary Output in Critically Ill Patients Urinary Catheter Date of Insertion: 02/27/25 Urinary Catheter Time of Insertion: 01:12 Date Urinary Catheter Removed: 03/03/25 Time Urinary Catheter Discontinued: 05:50 Data 03/04/25 03:58 03/04/25 03:58 A&P Assessment and plan 1. Acute kidney injury: Plan: 1. Acute on chronic kidney disease stage3 : Baseline creatinine seems to be in the 1.5-1.9 range, creatinine slightly elevated at 2.1 currently. No obstruction, urine UA bland. - s/p IV fluids -s/p LHC , s/p iv lasix - can resume home diuretics - Cr improving 2. History of CHF, holding Lasix and spironolactone prior ejection fraction of 45%, 3. Acute on chronic respiratory failure, multifactorial in the setting of restrictive lung disease and CHF, chronically on 3 L O2 4. Hyponatremia, mild, improved Patient evaluated using audiovisual cart. Time spent 40 minutes. PDMP PDMP Reviewed: Not Reviewed Attestations 2 Medical Necessity Statement*: per [facility] Coding Level of Care Code Acute Code for [facility] Fwd Diagnoses Acute kidney injury N17.9
--- NOTE | 2025-03-04 18:28 | PC.NURSE ---
Pt called back after discharge asking if there was someone/some way for her to get home physical therapy. Secured messaged Dr Alicea and case management Regis about her request.
== END 2025-03-04 12:35 | disposition home or self-care (01) | DRG 321 ==
LOC: ER 12:39 → ICU 16:55
PROVIDERS: Internal Medicine Cardiovascular Disease; Admitting Provider Family Medicine; Emergency Provider Family Medicine; PCP Family Medicine; Visit Provider Family Medicine
PROC: 027034Z Dilation of Coronary Artery, One Artery with Drug-eluting Intraluminal Device, Percutaneous Approach (ICD-10-PCS; principal; 2025-03-02 06:00)
PROC: 027034Z Dilation of Coronary Artery, One Artery with Drug-eluting Intraluminal Device, Percutaneous Approach (ICD-10-PCS; 2025-03-02 06:00)
DX: I21.4 Non-ST elevation (NSTEMI) myocardial infarction (principal); I50.23 Acute on chronic systolic (congestive) heart failure; J96.21 Acute and chronic respiratory failure with hypoxia; T82.855A Stenosis of coronary artery stent, initial encounter; N17.9 Acute kidney failure, unspecified; I13.0 Hypertensive heart and chronic kidney disease with heart failure and stage 1 through stage 4 chronic kidney disease, or unspecified chronic kidney disease; E87.1 Hypo-osmolality and hyponatremia; I48.19 Other persistent atrial fibrillation; F33.2 Major depressive disorder, recurrent severe without psychotic features; I25.10 Atherosclerotic heart disease of native coronary artery without angina pectoris; Y71.8 Miscellaneous cardiovascular devices associated with adverse incidents, not elsewhere classified; E11.22 Type 2 diabetes mellitus with diabetic chronic kidney disease; N18.30 Chronic kidney disease, stage 3 unspecified; I49.5 Sick sinus syndrome; E11.65 Type 2 diabetes mellitus with hyperglycemia; J44.9 Chronic obstructive pulmonary disease, unspecified; G47.33 Obstructive sleep apnea (adult) (pediatric); G89.29 Other chronic pain; E78.00 Pure hypercholesterolemia, unspecified; E03.9 Hypothyroidism, unspecified; E78.5 Hyperlipidemia, unspecified; E53.8 Deficiency of other specified B group vitamins; M10.9 Gout, unspecified; F41.1 Generalized anxiety disorder; I25.5 Ischemic cardiomyopathy; Z99.81 Dependence on supplemental oxygen; Z79.01 Long term (current) use of anticoagulants; Z79.4 Long term (current) use of insulin; Z79.02 Long term (current) use of antithrombotics/antiplatelets; Z95.5 Presence of coronary angioplasty implant and graft
CPT/HCPCS: 36415; 36416; 51702; 71045; 71250; 76770; 80048; 80053; 80061; 81001; 82962; 83036; 83721; 84443; 84484; 85025; 85347; 85610; 85730; 93005; 93306; 93454; 94664; 96372; 99152; 99153; C1725; C1760; C1769; C1874; C1887; C1894; C9600; G0269; J0461; J0780; J1265; J1644; J1650; J1815; J1938; J2060; J2250; J2405; J2470; J3010; J3490; J7030; J9999; Q0163; Q3014; Q9967

== ENCOUNTER → 2025-03-10 08:39 | Outpatient (BNVA) | payer MEDICARE, MEDICAID, SELFPAY | PROVIDERS: PCP Family Medicine; Visit Provider Internal Medicine Cardiovascular Disease | DX: I25.119 Atherosclerotic heart disease of native coronary artery with unspecified angina pectoris (principal); I49.5 Sick sinus syndrome; I48.91 Unspecified atrial fibrillation; Z79.01 Long term (current) use of anticoagulants; Z79.82 Long term (current) use of aspirin; I13.0 Hypertensive heart and chronic kidney disease with heart failure and stage 1 through stage 4 chronic kidney disease, or unspecified chronic kidney disease; N18.9 Chronic kidney disease, unspecified; I50.9 Heart failure, unspecified; Z95.5 Presence of coronary angioplasty implant and graft; I25.2 Old myocardial infarction | CPT/HCPCS: 99214 ==

== ENCOUNTER → 2025-03-12 11:03 | Outpatient (BNVA) | payer MEDICARE, MEDICAID, SELFPAY | PROVIDERS: PCP Family Medicine; Visit Provider Family Medicine | DX: Z51.81 Encounter for therapeutic drug level monitoring (principal) | CPT/HCPCS: 80053; 85025 ==

== ENCOUNTER 2025-03-20 16:50 | Emergency (ER) | payer MEDICARE, MEDICAID, SELFPAY ==
[2025-03-20 16:56] VITALS: BP 137/82; PULSE 78; RESP 16; TEMP 36.8; O2SAT 98
--- OUTSIDE RECORDS SUMMARY | 2025-03-20 16:56 | XMS_ITS | Clinical Summary ---
Author Organization [employer] Address [address] [facility] Attn: Epic Prelude ADT DANILO [place]ST[place] [id number] Care Team Providers Care Automotive Starter Repairer Name Role Phone Farhat Acosta MD Primary Care Provider [phone] Allergies Active Allergy Reactions Criticality Noted Date Comments Amiodarone Renal Dysfunctions Medium 07/31/2018 Empagliflozin Other (See Comments) 08/20/2024 Yeast infections Erythromycin Rash Low 04/26/2009 Meperidine (Pf) Nausea and Vomiting Low 04/26/2009 Morphine Unknown 04/24/2009 Oxycodone [id number] Nausea and Vomiting Low 04/26/2009 Oxycodone-Acetaminophe n [...] Active sodium chloride (OCEAN) 0.65 % Aerosol, [place] Administer 2 Sprays in each nostril PRN for Allergies. 9 Active polyethylene glycol (MIRALAX) 17 gram Powder in Packet Take 1 Packet (17 Grams) by mouth daily. 9 Active bisacodyL (DULCOLAX) 10 mg Suppository Insert 10 mg by rectum 1 time daily as needed for Constipation. 9 Active Sodium Chloride-Aloe Vera [place], Non-Aerosol Administer 1 [place] in each nostril 1 time daily as [...] tablet Take 50 mcg by mouth daily payroll and benefits manager. 8 Active apixaban (ELIQUIS) 5 mg tablet [...] 1 5 Active naloxone (NARCAN) 4 mg/spray [place], Non-Aerosol EMERGENCY USE ONLY: Administer 1 spray [...] pain 08/19/2024 Coronary artery disease invo lving hoopa coronary artery of hoopa heart with unstable angina pectoris 08/19/2024 Acute [...] 01/23/2018 ASHD (arteriosclerotic heart disease) 01/23/2018 [place] (myocardial infarction) 01/23/2018 Stage 3b chronic kidney [...] on file Legal Sex Female 12:45 AM VETERINARY TECHNICIAN INSTRUCTOR Gender Identity Not on file Sexual Orientation [...] cm (5' 8 ) 08/19/2024 9:30 PM VETERINARY TECHNICIAN INSTRUCTOR Body Mass Index 45.46 08/19/2024 9:30 PM VETERINARY TECHNICIAN INSTRUCTOR Plan of Treatment Health Maintenance Due Date [...] 08/24/2025 08/24/2024 Medical Devices Implanted Type Area Forensic Audit Expert Device Identifier Shelf Expiration Date Model / Serial / Lot Stent Orsiro [place] 2.5x15mm Ultthn Drug Eluting [id number] - [id number] Implanted:Qty: 1 on 08/26/2024 by Naldo Merritt MD at [facility] Stent Left: Coronary [employer] [id number] 02/04/2026 [id number] / / [id number] Stent Orsiro [place] 2.5x18mm Ultthn Drug Eluting [id number] - [id number] Implanted:Qty: 1 on 08/26/2024 by Naldo Merritt MD at [facility] Stent Left: Coronary [employer] [id number] 02/18/2026 [id number] / / [id number] Procedures Procedure Name Priority Date/Time Associated Diagnosis Comments LIPID PANEL Routine 08/24/2024 6:21 AM CDT HEMOGLOBIN A1C Routine 07/31/2018 11:08 AM VETERINARY TECHNICIAN INSTRUCTOR from Last 3 Months or Most Recently Relevant to Health Maintenance Results * (ABNORMAL) LIPID PANEL (08/24/2024 6:21 AM CDT) CHOLESTEROL 124 <200 mg/dL 08/24/2024 1:03 PM T [facility] TRIGLYCERIDE 153(H) <150 mg/dL 08/24/2024 1:03 PM T [facility] HDL 37(L) 40 - 59 mg/dL 08/24/2024 1:03 PM T [facility] LDL CALCULATED 56 <100 mg/dL 08/24/2024 1:03 PM T [facility] NON-HDL CHOLESTEROL 87 <130 mg/dL 08/24/2024 1:03 PM [facility] Blood Venipuncture / Unknown 08/24/2024 6:21 AM CDT 08/24/2024 7:13 AM CDT [facility] LABORATORY [facility] - 08/24/2024 1:03 PM CDT TOTAL CHOLESTEROL [...] CHEMISTRY ORDERABLES Final Result Performing Organization Address [facility] Co de Phone Number [facility] CLIA # [id number] [address] [place] [id number] * (ABNORMAL) HEMOGLOBIN A1C (07/31/2018 11:08 AM VETERINARY TECHNICIAN INSTRUCTOR) HEMOGLOBIN A1C 9.3(H) 4.0 - 6.0 % 07/31/2018 2:04 PM [facility] EST. AVG GLUCOSE, A1C 220 mg/dL 07/31/2018 2:04 PM [facility] Blood Venipuncture / Unknown 07/31/2018 11:08 AM VETERINARY TECHNICIAN INSTRUCTOR 07/31/2018 12:23 PM VETERINARY TECHNICIAN INSTRUCTOR Narrative [facility] - 07/31/2018 2:04 PM VETERINARY TECHNICIAN INSTRUCTOR HGB A1C INTERPRETATION NORMAL: <5.7% PRE-DIABETES: 5.7 - 6.4% DIABETES: 6.5% OR GREATER us Jose Segura MD CHEMISTRY ORDERABLES F inal Result Performing Organization Address [facility] Co de Phone Number [facility] CLIA# [id number] [address] [place] [address] [facility] LABORATORY [facility] CLIA# [id number] [address] [place] [address] from Last 3 Months or Most Recently Relevant to Health Maintenance Insurance [place] Advance Directives For more information, please contact: [phone] Documents on File Type Date Recorded Patient Human Resources Communications Manager Expl anation Advance Directive POA 08/21/2024 1:30 PM Ad lowry Directive POA * Full Code (Latest Code Status on File) Date Activated Date Inactivated Comments 08/26/2024 2:00 PM 08/27/2024 7:26 PM * Full Code Date Activated Date Inactivated Comments 08/21/2024 9:32 AM 08/26/2024 2:00 PM * Full Code Date Activated Date Inactivated Comments 08/19/2024 9:28 PM 08/21/2024 9:32 AM Care Teams Automotive Starter Repairer Relationship Specialty Start Date End Date Farhat Acosta MD [address] [place] [address] [phone] PCP - General Family Practice 04/08/18
--- OUTSIDE RECORDS SUMMARY | 2025-03-20 16:56 | XMS_ITS | Clinical Summary ---
Author Organization [facility] Address [address] [place] [address] Care Team Providers Care Car Worker Name Role Phone Farhat Acosta MD Primary Care Provider [phone] Allergies Active Allergy Reactions Criticality Noted Date Comments Amiodarone Renal Dysfunctions Medium 07/31/2018 Erythromycin Rash Low 04/26/2009 Meperidine (Pf) Nausea and Vomiting Low 04/26/2009 Morphine Unknown 04/24/2009 Oxycodone Dyl-Choecspma-Xwk Nausea and Vomiting Low 04/26/2009 Oxycodone-Acetaminophen Nausea and Vomiting Low 02/2009 Penicillins Rash Low 04/26/2009 Shellfish Containing Products Swelling Low 2008 Medications levothyroxine 50 mcg tablet Take 50 mcg by mouth daily drill runner. Active pregabalin (LYRICA) 150 mg Capsule Take [...] chloride (SALINE NASAL MIST) 0.65 % Aerosol, [place] Administer 2 Sprays in each nostril PRN for Allergies. Active Sodium Chloride-Aloe Vera (AYR SALINE GEL) [place], Non-Aerosol Administer 1 [place] in each nostril 1 time daily as [...] (chronic kidney disease) stage III 01/23/2018 [place] (myocardial infarction) 01/23/2018 Dyslipidemia 01/23/2018 Fibromyalgia 01/23/2018 [...] on file 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EXECUTIVE ASSISTANT TO GENERAL COUNSEL Gender Identity Not on file Sexual Orientation Not on file Last Filed Vital Signs Vital Sign Reading Time Taken Comments Blood Pressure 130/72 09/26/2018 11:17 AM CDT Pulse 84 09/26/2018 11:17 AM CDT Temperature 35.7 C (96.2 F) 08/05/2018 10:49 AM EXECUTIVE ASSISTANT TO GENERAL COUNSEL Respiratory Rate 18 08/05/2018 10:49 AM EXECUTIVE ASSISTANT TO GENERAL COUNSEL Oxygen Saturation 98% 08/05/2018 10:49 AM EXECUTIVE ASSISTANT TO GENERAL COUNSEL Inhaled Oxygen Concentration - - Weight 138.8 [...] Comments HEMOGLOBIN A1C Routine 07/31/2018 11:08 AM EXECUTIVE ASSISTANT TO GENERAL COUNSEL Persistent atrial fibrillation (CMS/HCC) Stable angina ASHD (arteriosclerotic heart disease) Typical atrial flutter (CMS/HCC) Morbid obesity with body mass index of 40.0-49.9 (CMS/HCC) Fibromyalgia 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 (CMS/HCC) 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 (CMS/HCC) Dyslipidemia Respiratory illness Oxygen dependent [place] (myocardial infarction) ALONDRA (obstructive sleep apnea) Benign hypertension with CKD (chronic kidney disease) stage III (CMS/[facility]) Referral of patient Type 2 diabetes mellitus with other circulatory complication, with long-term current use of insulin ([facility]) LIPID PANEL Routine 04/24/2009 5:43 AM EXECUTIVE ASSISTANT TO GENERAL COUNSEL from Last 3 Months or Most Recently Relevant to Health Maintenance Results * (ABNORMAL) HEMOGLOBIN A1C (07/31/2018 11:08 AM EXECUTIVE ASSISTANT TO GENERAL COUNSEL) HEMOGLOBIN A1C 9.3(H) 4.0 - 6.0 % 07/31/2018 2:04 PM EXECUTIVE ASSISTANT TO GENERAL COUNSEL [facility] EST. AVG GLUCOSE, A1C 220 mg/dL 07/31/2018 2:04 PM [facility] Blood Venipuncture / Unknown 07/31/2018 11:08 AM EXECUTIVE ASSISTANT TO GENERAL COUNSEL 07/31/2018 12:23 PM EXECUTIVE ASSISTANT TO GENERAL COUNSEL Narrative [facility] - 07/31/2018 2:04 PM EXECUTIVE ASSISTANT TO GENERAL COUNSEL HGB A1C INTERPRETATION NORMAL: <5.7% PRE-DIABETES: 5.7 - 6.4% DIABETES: 6.5% OR GREATER us Jose Segura MD CHEMISTRY ORDERABLES F inal Result [facility] CLIA# [id number] [address] [place] [address] * (ABNORMAL) LIPID PANEL (04/24/2009 5:43 AM EXECUTIVE ASSISTANT TO GENERAL COUNSEL) CHOLESTEROL 196 0 - 200 mg/dL [facility] TRIGLYCERIDE 156(H) 0 - 150 mg/dL [facility] HDL 44 40 - 60 mg/dL [facility] LDL CALCULATED 121(H) 0 - 100 mg/dL [facility] Comment: Calculated LDL Reference: <100 Optimal 100-129 Near Optimal 130-159 Borderline High >160 High Risk CALCULATED TOTAL CHOLESTEROL TO HDL RATIO 4.45(H) 3.27 - 4.44 [facility] Blood specimen (specimen) 04/24/2009 5:43 AM EXECUTIVE ASSISTANT TO GENERAL COUNSEL 04/24/2009 5:43 AM EXECUTIVE ASSISTANT TO GENERAL COUNSEL Narrative INTERFACE SYSTEM - 04/24/2009 8:37 AM EXECUTIVE ASSISTANT TO GENERAL COUNSEL FASTING Sander Segura MD CHEMISTRY ORDER MITCHELL Edited INTERFACE SYSTEM Refer to clinic/hospital department [facility] CLIA# [id number] [address] [place] [address] from Last 3 Months or Most Recently Relevant to Health Maintenance Insurance [place] Member Subscriber Plan / Payer (Ef fective 2017-Present) Name:Shauna Sena Relation to Subscriber:Self Name:Nathen Shauna L Payer ID:[id number] Group ID:Not on file Type:Medicaid Address: [address] Advance Directives For more information, please contact: [phone] * Full Code (Latest Code Status on File) Date Activated Date Inactivated Comments 08/01/2018 4:26 PM 08/05/2018 5:45 PM * Full Code Date Activated Date Inactivated Comments 08/01/2018 5:09 AM 08/01/2018 4:25 PM * Full Code Date Activated Date Inactivated Comments 04/26/2009 3:35 PM 04/28/2009 2:07 PM * Full Code Date Activated Date Inactivated Comments 04/25/2009 9:38 AM 04/26/2009 3:35 PM Care Teams Car Worker Relationship Specialty Start Date End Date Farhat Acosta MD [address] [place] [phone] PCP - General Family Practice 04/08/18
--- OUTSIDE RECORDS SUMMARY | 2025-03-20 16:56 | XMS_ITS | Encounter Summary ---
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 Dyslipidemia Respiratory illness Oxygen dependent [place] (myocardial infarction) ALONDRA (obstructive sleep apnea) Benign hypertension with CKD (chronic kidney disease) stage III (CMS/HCC) Referral of patient Type 2 diabetes mellitus with other circulatory complication, with long-term current use of insulin Pre-existing type 2 diabetes mellitus during , antepartum Procedures ECHOCARDIOGRAM W/ CONTRAST AGENT ECHO COMPLETE Jose Segura MD [facility] [address] [place] [address] Phone: tel: fax: Referral ID Status Reason Start Date Expiration Date V isits Requested Visits Authorized [id number] Closed F [facility] TO SCHEDULE (SGF) 05/15/2018 06/15/2019 1 1 MILL OPERATOR Encounter Details Date Type Department Care Team (Latest Contact Info) Description 05/30/2018 Ancillary Orders [facility] ([facility]3] Cardiac Thoracic Vascular Surg [place] [address] [place] [address] Jose Segura MD NO ADDRESS ON FILE Persistent atrial fibrillation ([facility]); Stable angina; ASHD (arteriosclerotic heart disease); Typical atrial flutter ([facility]); Morbid obesity with body mass index of 40.0-49.9 ([facility]); Fibromyalgia; 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 ([facility]); 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 ([facility]); Dyslipidemia; Respiratory illness; Oxygen dependent; [place] (myocardial infarction); ALONDRA (obstructive sleep apnea); Benign hypertension with CKD (chronic kidney disease) stage III ([facility]); Referral of patient; Type 2 diabetes mellitus with other circulatory complication, with long-term current use of insulin ([facility]); Pre-existing type 2 diabetes mellitus during , antepartum Social History Tobacco Use Types Packs/Day Years Used Date Smoking Tobacco: Never Alcohol Use Standard Drinks/Week Comments No 0 (1 standard drink = 0.6 oz pur e alcohol) Comments Unknown Sex and Gender Information Value Date Recorded Sex Assigned at Not on file 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BANDMILL OPERATOR Gender Identity Not on file Sexual Orientation Not on file documented as of this encounter Plan of Treatment Not on file documented as of this encounter Results * ECHOCARDIOGRAM W/ CONTRAST AGENT (05/30/2018 2:35 PM BANDMILL OPERATOR) EJECTION FRACTION INTERFACE SYSTEM 05/30/2018 1:52 PM BANDMILL OPERATOR Narrative INTERFACE SYSTEM - 05/30/2018 5:50 PM BANDMILL OPERATOR [facility] [address] [place] [address] Transthoracic Echocardiography Patient: Nathen Study ECHO COMPLETE Shauna Gibson ID: Gender: Cookie : 1955 Age: 62 Room: Study 05/30/2018 Pt Outpatient Date: Status: Study 01:52:05 PM 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 Prepared and Electronically Authenticated Yamilka Henley Confirmed 05/30/2018 17:50 Procedure Note Yamilka Henley MD - 05/30/2018 [facility] [address] [place] [address] Transthoracic Echocardiography Patient: Nathen Study ECHO COMPLETE Shauna Gibson ID: Gender: F : 1955 Age: 62 Room: Study 05/30/2018 Pt Outpatient Date: Status: Study 01:52:05 PM CSN #: [id number] Time: Ordering:Jose Segura MD, RPVI Interpreting:Yamilka Henley Transport Rn: Vilma Chen RUST Indications and History: Persistent atrial fibrillation;Stable angina;ASHD (arteriosclerotic heart disease) ;Typical atrial flutter;Morbid obesity with body mass index of 40.0-49.9; Fibromyalgia;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 Prepared and Electronically Authenticated Yamilka Henley Confirmed 05/30/2018 17:50 us Jose Segura MD US ORDERABLES Final Result Performing Organization Address City/State/[facility] Co de Phone Number INTERFACE SYSTEM Refer to clinic/hospital department documented in this encounter Visit Diagnoses Diagnosis Persistent atrial fibrillation (CMS/HCC) Atrial fibrillation Stable angina Other and unspecified angina pectoris ASHD (arteriosclerotic heart disease) Coronary atherosclerosis of unspecified type of vessel, [place] or graft Typical atrial flutter (CMS/HCC) Atrial flutter Morbid obesity with body mass index of 40.0-49.9 Fibromyalgia Mylagia and myositis, unspecified 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 Dyslipidemia Other and unspecified hyperlipidemia Respiratory illness Oxygen dependent Dependence on supplemental oxygen [place] (myocardial infarction) Old myocardial infarction ALONDRA (obstructive sleep apnea) Obstructive sleep apnea (adult) (pediatric) Benign hypertension with CKD (chronic kidney disease) stage III (CMS/HCC) Benign hypertensive kidney disease with chronic kidney disease stage I through stage IV, or unspecified Referral of patient Referral of patient without examination or treatment Type 2 diabetes mellitus with other circulatory complication, with long-term current use of insulin Pre-existing type 2 diabetes mellitus during , antepartum Persistent atrial fibrillation (CMS/HCC) Atrial fibrillation Stable angina Other and unspecified angina pectoris ASHD (arteriosclerotic heart disease) Coronary atherosclerosis of unspecified type of vessel, [place] or graft Typical atrial flutter (CMS/HCC) Atrial flutter Morbid obesity with body mass index of 40.0-49.9 Fibromyalgia Mylagia and myositis, unspecified 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 Dyslipidemia Other and unspecified hyperlipidemia Respiratory illness Oxygen dependent Dependence on supplemental oxygen [place] (myocardial infarction) Old myocardial infarction ALONDRA (obstructive sleep apnea) Obstructive sleep apnea (adult) (pediatric) Benign hypertension with CKD (chronic kidney disease) stage III ([facility]) Benign hypertensive kidney disease with chronic kidney disease stage I through stage IV, or unspecified Referral of patient Referral of patient without examination or treatment Type 2 diabetes mellitus with other circulatory complication, with long-term current use of insulin Pre-existing type 2 diabetes mellitus during , antepartum documented in this encounter Care Teams Professor Of Economics Relationship Specialty Start Date End Date Farhat Acosta MD [address] [place] [phone] PCP - General Family Practice 04/08/18 documented as of this encounter
--- OUTSIDE RECORDS SUMMARY | 2025-03-20 16:56 | XMS_ITS | Encounter Summary ---
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 Dyslipidemia Respiratory illness Oxygen dependent [place] (myocardial infarction) ALONDRA (obstructive sleep apnea) Benign hypertension with CKD (chronic kidney disease) stage III (CMS/HCC) Referral of patient Type 2 diabetes mellitus with other circulatory complication, with long-term current use of insulin Pre-existing type 2 diabetes mellitus during , antepartum Procedures CT CARDIAC CHEST INTERPRETATION Jose Segura MD Referral ID Status Reason Start Date Expiration Date Visits Re quested Visits Authorized [id number] Closed 06/06/2018 07/07/2019 1 1 EMS MGR Encounter Details Date Type Department Care Team (Latest Contact Info) Description 06/06/2018 Ancillary Orders [facility] Cardiac Thoracic Vascular Surg [place] [address] [place] [address] Jose Segura MD NO ADDRESS ON FILE Persistent atrial fibrillation (CMS/HCC); Stable angina; ASHD (arteriosclerotic heart disease); Typical atrial flutter ([facility]); Morbid obesity with body mass index of 40.0-49.9 ([facility]); Fibromyalgia; 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 ([facility]); 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 ([facility]); Dyslipidemia; Respiratory illness; Oxygen dependent; [place] (myocardial infarction); ALONDRA (obstructive sleep apnea); Benign hypertension with CKD (chronic kidney disease) stage III ([facility]); Referral of patient; Type 2 diabetes mellitus with other circulatory complication, with long-term current use of insulin ([facility]); Pre-existing type 2 diabetes mellitus during , antepartum Social History Tobacco Use Types Packs/Day Years Used Date Smoking Tobacco: Never Alcohol Use Standard Drinks/Week Comments No 0 (1 standard drink = 0.6 oz pur e alcohol) Comments Unknown Sex and Gender Information Value Date Recorded Sex Assigned at Not on file 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SYSTEMS MGR Gender Identity Not on file Sexual Orientation Not on file documented as of this encounter Plan of Treatment Not on file documented as of this encounter Results * CT CARDIAC CHEST INTERPRETATION (06/06/2018 11:51 AM SYSTEMS MGR) Anatomical Region Laterality Modality Chest Computed Tomogra phy 06/06/2018 11:5 1 AM SYSTEMS MGR Impressions 06/06/2018 3:20 PM SYSTEMS MGR IMPRESSION: Mosaic attenuation is noted that can indicate small airways disease/bronchiolitis, active pneumonitis, chronic pulmonary vascular occlusive disease. Enlarged mediastinal lymph nodes, nonspecific but likely reactive in the absence of a known malignancy. If clinically desired, follow-up CT in three months may be of benefit to document stability. [id number] Narrative 06/06/2018 3:[address] CARDIAC CHEST INTERPRETATION; Reason For Exam: [...] may be of benefit to document stability. [id number] ORDERABLES Final Result documented in this encounter Visit Diagnoses Diagnosis Persistent atrial fibrillation (CMS/HCC) Atrial fibrillation Stable angina Other and unspecified angina pectoris ASHD (arteriosclerotic heart disease) Coronary atherosclerosis of unspecified type of vessel, [place] or graft Typical atrial flutter (CMS/HCC) Atrial [...] Oxygen dependent Dependence on supplemental oxygen [place] (myocardial infarction) Old myocardial infarction ALONDRA (obstructive [...] Coronary atherosclerosis of unspecified type of vessel, [place] or graft Typical atrial flutter (CMS/HCC) Atrial [...] Oxygen dependent Dependence on supplemental oxygen [place] (myocardial infarction) Old myocardial infarction ALONDRA (obstructive [...] antepartum documented in this encounter Care Teams Fisher Spear Relationship Specialty Start Date End Date Farhat Acosta MD [address] [place] [phone] PCP - General Family Practice 04/08/18 documented as of this encounter
--- OUTSIDE RECORDS SUMMARY | 2025-03-20 16:56 | XMS_ITS | Encounter Summary ---
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 Fibromyalgia Oxygen dependent Respiratory illness Procedures ECHOCARDIOGRAM W/ CONTRAST AGENT ECHO COMPLETE Jose Segura MD [facility] Pre-Registration [place] CALL TO MAKE APPOINTMENT ONLY [address] [place] [address] Phone: tel: fax: Referral ID Status Reason Start Date Expiration Date V isits Requested Visits Authorized [id number] Closed F [facility] TO SCHEDULE (SGF) 02/07/2018 03/10/2019 1 1 Encounter Details Date Type Department Care Team (Latest Contact Info) Description 03/05/2018 Ancillary Orders [facility] ([facility] Cardiac Thoracic Vascular Surg [place] [address] [place] [address] Jose Segura MD NO ADDRESS ON FILE Persistent atrial fibrillation (CMS/HCC); Stable angina; ASHD (arteriosclerotic heart disease); Typical atrial flutter (CMS/HCC); Morbid obesity with body mass index of 40.0-49.9 (CMS/HCC); Dyslipidemia; 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 (CMS/HCC); 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 (CMS/HCC); Fibromyalgia; Oxygen dependent; Respiratory illness Social History Tobacco Use Types Packs/Day Years Used Date Smoking Tobacco: Never Alcohol Use Standard Drinks/Week Comments No 0 (1 standard drink = 0.6 oz pur e alcohol) Comments Unknown Sex and Gender Information Value Date Recorded Sex Assigned at Not on file 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CARD PLACER Gender Identity Not on file Sexual Orientation Not on file documented as of this encounter Plan of Treatment Not on file documented as of this encounter Results * ECHOCARDIOGRAM W/ CONTRAST AGENT (03/05/2018 2:19 PM CDT) EJECTION FRACTION INTERFACE SYSTEM 03/05/2018 1:06 PM CDT Narrative INTERFACE SYSTEM - 03/06/2018 6:51 PM CDT [facility] Echocardiography-[address] [address] Transthoracic Echocardiography Patient: Nathen Study ECHO COMPLETE Shauna Gibson ID: Gender: Cookie : 1955 Age: 62 Room: Study 03/05/2018 Pt Outpatient Date: Status: Study 01:06:04 PM CSN #: [id number] Time: Ordering:Jose Segura MD, RPVI Interpreting:Raman Robles MD Java Designer: Stephen Martinez RDCS Indications and History: Persistent [...] PLAX 3.0 cm RVID ED 3.0 cm [facility] Echo Labs are accredited with the [facility] Accreditation Commission - Echocardiography. Prepared and Electronically Authenticated Raman Robles MD Confirmed 03/06/2018 18:50 Procedure Note Raman Robles MD - 03/06/2018 [facility] Echocardiography-[place] [address] [place] [address] [place] [address] Transthoracic Echocardiography Patient: Nathen Study ECHO COMPLETE Shauna Gibson ID: Gender: F : 1955 Age: 62 Room: Study 03/05/2018 Pt Outpatient Date: Status: Study 01:06:04 PM [facility] #: [id number] Time: Ordering:Jose Segura MD, RPVI Interpreting:Raman Robles MD Java Designer: Stephen Martinez [facility] Indications and History: Persistent atrial [...] PLAX 3.0 cm RVID ED 3.0 cm [facility] Labs are accredited with the [facility] Accreditation Commission - Echocardiography. Prepared and Electronically Authenticated Raman Robles MD Confirmed 03/06/2018 18:50 us Jose eSgura MD US ORDERABLES Final Result INTERFACE SYSTEM Refer to clinic/hospital department documented in this encounter Visit Diagnoses Diagnosis Persistent atrial fibrillation (CMS/HCC) Atrial fibrillation Stable angina Other and unspecified angina pectoris ASHD (arteriosclerotic heart disease) Coronary atherosclerosis of unspecified type of vessel, [place] or graft Typical atrial flutter (CMS/HCC) Atrial flutter Morbid obesity with body mass index of 40.0-49.9 Dyslipidemia Other and unspecified hyperlipidemia 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 Fibromyalgia Mylagia and myositis, unspecified Oxygen dependent Dependence on supplemental oxygen Respiratory illness Persistent atrial fibrillation (CMS/HCC) Atrial fibrillation Stable angina Other and unspecified angina pectoris ASHD (arteriosclerotic heart disease) Coronary atherosclerosis of unspecified type of vessel, [place] or graft Typical atrial flutter (CMS/HCC) Atrial flutter Morbid obesity with body mass index of 40.0-49.9 Dyslipidemia Other and unspecified hyperlipidemia 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
--- OUTSIDE RECORDS SUMMARY | 2025-03-20 16:56 | XMS_ITS | Clinical Summary ---
Author Organization [facility] Facility Address [address] [place] [address] Care Team Providers Care Store Lead Name Role Phone Farhat Acosta MD Primary Care Provider [phone] Allergies Active Allergy Reactions Criticality Noted Date [...] (EXTERNAL RESULT ENTRY) Routine 07/29/2019 2:29 PM IRRIGATION TECHNICIAN from Last 3 Months or Most Recently Relevant to Health Maintenance Results * Hemoglobin A1C (07/29/2019 2:29 PM IRRIGATION TECHNICIAN) Hemoglobin A1C 9.5 Blood specimen (specimen) Venous blood / Unknown 07/29/2019 2:29 PM IRRIGATION TECHNICIAN Narrative Darcy Villanueva MA - 10/06/2019 2:49 PM CDT Courtesy lab [facility] [place] [address] [place] [facility] [address] Shallot Packer: Dom Das DO MPH CLIA: [id number] us Farhat Acosta MD LAB BLOOD ORDERABLES Final Resu lt from Last 3 Months or Most Recently Relevant to Health Maintenance Insurance Medicaid [place] ([id number]) [facility] Care Teams Store Lead Relationship Specialty Start Date End Date Farhat Acosta MD PCP - General Family Medicine 09/30/18
--- OUTSIDE RECORDS SUMMARY | 2025-03-20 16:56 | XMS_ITS | Encounter Summary ---
Author Organization [facility] Address [address] [facility] [address] [place] [address] Phone Care Team Providers Care Special Investigation Unit Investigator Name Role Phone Farhat Acosta MD Primary Care Provider [phone] Encounter Details Date Type Department Care Team (Late st Contact Info) Description 04/09/2019 Orders Only [facility] [address] [place] [address] Mo Bolaños MD [address] 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
--- NOTE | 2025-03-20 17:03 | XRR_ITS ---
PROCEDURE INFORMATION: Exam: XR Abdomen Exam date and time: 03/20/2025 5:18 PM Age: 69 years old Clinical indication: Nausea and vomiting; Prior surgery; Surgery date: <1 month; Surgery type: Cardiac ablation, coronary stents, right breast incision/drainage, spine, , hysterectomy, gallbladder; Additional info: Short of breath, abdominal pain; N/v x 3 days; Recent cardiac stent placement TECHNIQUE: Imaging protocol: Radiologic exam of the abdomen. Views: Frontal view of the chest. Four views of the abdomen. COMPARISON: CT abdomen pelvis con [id number] 08/15/2023 7:02 PM FINDINGS: Lungs: No infiltrates. Pleural spaces: No pleural effusions or pneumothorax. Heart/Mediastinum: Mild cardiomegaly. Atherosclerotic coronary artery calcifications. Gastrointestinal tract: Bowel gas pattern nonobstructive. Moderate fecal load in the colon. Intraperitoneal space: No evidence of free intraperitoneal air. Bones/joints: Unremarkable for age. XR/XR acute abdomen series [id number] IMPRESSION: 1. No evidence of intestinal obstruction or perforation radiographically. 2. Moderate fecal load in the colon. 3. No acute cardiopulmonary findings radiographically. 4. Mild cardiomegaly. 5. Atherosclerotic coronary artery calcifications.
--- NOTE | 2025-03-20 17:12 | ECG_ITS ---
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 Measurements Intervals [place] Rate: 71 P: 64 CT: 255 QRS: 23 QRSD: 97 T: 41 QT: 388 QTc: 422 Interpretive Statements SINUS RHYTHM WITH SINUS ARRHYTHMIA WITH FIRST DEGREE AV BLOCK INCOMPLETE RIGHT BUNDLE BRANCH BLOCK LOW QRS VOLTAGE IN PRECORDIAL LEADS [QRS DEFLECTION < 1.0 mV IN CHEST LEADS] Compared to ECG 02/27/2025 13:23:44 First degree AV block now present Low QRS voltage now present Atrial fibrillation no longer present Incomplete right bundle-branch block no longer present ST (T wave) deviation no longer present Electronically Signed On 03-21-2025 14:31:56 CDT by Sherman Chapman M.D. [email or web address]
--- NOTE | 2025-03-20 17:14 | W.ED.NAVMDI ---
HPI - Nausea/Vomiting/Diarrhea General: Chief complaint: Nausea/Vomiting/Diarrhea Stated complaint: NVD Time Seen by Provider: 03/20/25 16:51 History of Present Illness: Patient is a 69-year-old female with CKD 3, CAD, C with PTCA to first OM 03/02, O2 chronic at 3 L, A-fib on Eliquis, DM 2 uncontrolled, presents to the emergency room due to nausea and vomiting x 2 days refractory to Zofran and Benadryl p.o., and diarrhea x 3 days. Denies any abdominal pain. She is passing gas. No sick contact. No recent antibiotics. No chest discomfort. Patient has not been able to hold down any of her medications for the last 2 days. She believes that she has had a total of 4 crackers that she has possibly kept down with minimal amount of fluid. She is chronically on Lasix due to diastolic CHF with last EF 60%, diastolic dysfunction grade 2?3. She does not have any shortness of breath, or chest pain. As noted she has not had a critical medication including clopidogrel, Eliquis with recent PTCA. Cath/LHC 03/02/2025 Diagnostic Cath Status: Urgent Diagnostic Findings * Left Main has no disease. * Circumflex has no disease. * Proximal Left Anterior Descending: mild 40% stenosis, BROOKS: 3 flow. * Mid Right Coronary Artery: moderate 50% stenosis, BROOKS: 3 flow. * First Obtuse Marginal Branch Segment: significant 80% stenosis, BROOKS: 3 flow. * Coronary angiography shows right dominance. Interventional Findings * First Obtuse Marginal Branch Segment: 80% stenosis treated with a AB TREK 2.50X20 RX BALLOON, NITZA Flanagan IZABELLA 3.0X26 EDD, and NITZA ROBLES EUPHORA RX [id number] BALLOON. 0% residual stenosis, BROOKS: 3 flow. Conclusions 1. There is moderate coronary artery disease with two vessel disease. 2. First Obtuse Marginal Branch Segment was treated with a Balloon, Drug Eluting Stent, and Balloon. 3. LAD has proximal in-stent restenosis which is 30 to 40% otherwise no significant stenosis noted.. Recommendations * 1-Return to inpatient for close monitoring and routine cath care 2-Risk factor modification for secondary prevention 3-Statin and aspirin 81 mg life-long, if tolerated 4-Continue Plavix 75mg p.o. daily for at least one year. We will assess at the end of one year again to continue if further or not 5-Continue optimal medical management 6-Follow up with Dr. Hightower in four weeks and your primary care in 10 days. Associated nausea: Yes Associated symtoms: Reports nausea; Denies anxiety, change in vision, chest pain, headache(s) or palpitations Related Data Home Medications ?Medication ?Instructions ?Recorded ?Confirmed acetaminophen 500 mg tablet 1,000 mg PO Q6H PRN Pain 05/11/22 03/12/25 hydralazine 25 mg tablet 25 mg PO TID PRN high bp 06/05/24 03/12/25 budesonide 0.5 mg/2 mL suspension 0.5 mg inhalation BID PRN COPD 02/26/25 03/12/25 for nebulization levothyroxine 50 mcg tablet 50 mcg PO QAM 02/26/25 03/12/25 insulin glargine 100 unit/mL (3 60 unit SUBCUT BID 03/12/25 mL) subcutaneous pen (Lantus Solostar U-100 Insulin) Previous Rx's ?Medication ?Instructions ?Recorded cyanocobalamin (vitamin B-12) 1,000 mcg PO DAILY #30 tabs 02/05/22 1,000 mcg tablet (Vitamin B-12) nitroglycerin 0.4 mg sublingual 0.4 mg sublingual Q5M PRN Chest 05/24/23 tablet (Nitrostat) Pain #30 tabs cholecalciferol (vitamin D3) 50 50 mcg PO DAILY #30 caps 10/30/23 mcg (2,000 unit) capsule Manual wheelchair #1 ea 12/05/23 clopidogrel 75 mg tablet 75 mg PO DAILY #90 tabs 03/27/24 flash glucose scanning reader #2 ea 04/28/24 (FreeStyle Lou 14 Day Galva) flash glucose sensor (FreeStyle #2 ea 04/28/24 Lou 14 Day Sensor kit) insulin syringe-needle U-100 1 mL #100 ea 08/26/24 29 gauge x 1/2 isosorbide mononitrate 30 mg 30 mg PO DAILY #30 tabs 09/16/24 tablet,extended release 24 hr spironolactone 25 mg tablet 25 mg PO DAILY #30 tabs 09/19/24 allopurinol 300 mg tablet 300 mg PO DAILY #90 tabs 11/19/24 potassium chloride 20 mEq 20 meq PO BID #180 tabs 11/19/24 tablet,extended release(part/cryst) pregabalin 50 mg capsule 50 mg PO BID #60 caps 11/19/24 pen needle, diabetic 31 gauge x #100 ea 01/12/25/ (TechLITE Pen Needle) lorazepam 1 mg tablet 1 mg PO BID PRN anxiety #60 tabs 01/26/25 buspirone 10 mg tablet 10 mg PO TID #90 tabs 02/05/25 dulaglutide 1.5 mg/0.5 mL 1.5 mg (0.5 mL) SUBCUT Q7D #2 mL 02/05/25 subcutaneous pen injector ferrous sulfate 325 mg (65 mg 325 mg PO BID #60 tabs 02/05/25 iron) tablet apixaban 5 mg tablet 5 mg PO BID #180 tabs 03/04/25 aspirin 81 mg tablet,delayed 81 mg PO DAILY 30 days #30 tabs 03/04/25 release atorvastatin 40 mg tablet (Lipitor) 40 mg PO DAILY 30 days #30 tabs 03/04/25 insulin aspart U-100 100 unit/mL See Rx Instructions .Route 03/04/25 (3 mL) subcutaneous pen (Novolog .COMPLEX #15 mL FlexPen U-100 Insulin aspart) metoprolol tartrate 25 mg tablet 25 mg PO BID@0900,2100 30 days #30 03/04/25 tabs furosemide 40 mg tablet 40 mg PO DIRECTED edema #270 03/10/25 tabs vortioxetine 20 mg tablet 20 mg PO DAILY #30 tabs 03/12/25 ondansetron HCl 4 mg tablet 4 mg PO Q8H PRN nausea and 03/20/25 vomiting #30 tabs Allergies Allergy/AdvReac Type Severity Reaction Status Date / Time morphine Allergy Severe Quit Verified 03/12/25 10:45 breathing amiodarone Allergy ALGY-Anaphy Verified 03/12/25 10:45 laxis sulfamethoxazole (From Allergy ALGY-Rash Verified 03/12/25 10:45 Bactrim) trimethoprim (From Bactrim) Allergy ALGY-Rash Verified 03/12/25 10:45 shellfish derived AdvReac Severe Hives & Verified 03/12/25 10:45 throat swells meperidine (From Demerol) AdvReac Intermediate Made N & V Verified 03/12/25 10:45 Penicillins AdvReac Intermediate RAsh Verified 03/12/25 10:45 Review of Systems General: Reports: 10 or more systems reviewed and unremarkable except in HPI and below Const: Denies: fever(s) or chills Eyes: Denies: change in vision or blurry vision ENMT: Denies: throat pain, nasal obstruction or post nasal drip Card: Denies: chest pain or palpitations Resp: Denies: dyspnea or productive cough GI: Reports: nausea, vomiting and diarrhea; Denies: abdominal pain : Denies: flank pain or difficulty voiding Musc: Denies: neck pain or back pain Skin/Breast: Denies: rash or pruritus Neuro: Denies: headache(s) or numbness in extremities Psych: Denies: anxiety or depression Endo: Denies: polyuria PFSH ED PFSH: Medical History (Updated 03/20/25 @ 21:03 by MAGGY Hawk) CAD (coronary artery disease) LVEF 60% Stents x 3 -in 02/2023, stent OM 02/2025 SOB (shortness of breath) Diabetes type 2, uncontrolled Atherosclerotic heart disease of [place] coronary artery with unstable angina pectoris CKD (chronic kidney disease) CHF (congestive heart failure) Acute hip pain Fall Weakness COPD with acute exacerbation Acute on chronic hypoxic respiratory failure Pneumonia CHF exacerbation Urinary retention Abscess Gait instability Positive cardiac stress test Fluid overload Muscle pain Skin rash Diarrhea Bronchospasm Hyperglycemia Chronic pain Diarrhea Generalized anxiety disorder Type 2 diabetes mellitus MRSA (methicillin resistant staph aureus) culture positive Influenza A Community acquired pneumonia Vitamin B12 deficiency Polypharmacy Gout Hyperlipidemia Hypothyroidism Fibromyalgia Depression Chronic respiratory failure Amiodarone pulmonary toxicity Atrial fibrillation Hypercholesteremia HTN (hypertension) Major depressive disorder, recurrent severe without psychotic features Chronic pain She reports taking pain medicines and muscle relaxers for a recent back injury; she has chronic left leg pain. Surgical History (Updated 03/12/25 @ 17:03 by Farhat Acosta MD) History of incision and drainage Right breast abscess History of coronary artery stent placement Stent x 2 at [facility] - 08/2024 - Total of 11 stents as of 03/12/25 H/O left knee surgery Hx of cholecystectomy History of hysterectomy partial H/O section History of back surgery H/O eye surgery History of carpal tunnel release H/O cardiac radiofrequency ablation Family History Mother Cancer breast Stroke Brother Heart disease Asthma Cancer prostate Sister Heart disease Social History Smoking and tobacco/nicotine status: never used tobacco/nicotine Alcohol intake: never Substance/Drug Use: never Housing: Other Details: Currently with her family Physical Exam Const: COMMON NORMALS: no acute distress, average body habitus, patient oriented x3 and no limitations GENERAL APPEARANCE: cooperative and comfortable HENMT: COMMON NORMALS: normocephalic and atraumatic HEAD & SCALP: normocephalic and atraumatic Eye: COMMON NORMALS: Equal, round and reactive pupils present, EOMs intact bilaterally, conjunctivae normal and no scleral icterus CONJUNCTIVA: Yes conjunctivae normal PUPIL: Yes Equal, round and reactive pupils present Neck/C-Spine: COMMON NORMALS: full ROM and no lymphadenopathy CERVICAL SPINE: Yes cervical ROM normal Lymph: LYMPHATIC: no lymphadenopathy noted Chest: COMMONS NORMALS: normal inspection of the chest Resp: COMMON NORMALS: normal respiratory effort, No retractions and clear to auscultation bilaterally AUSCULTATION: clear to auscultation bilaterally Cardio: COMMON NORMALS: regular rate and regular rhythm RATE: regular rate RHYTHM: regular rhythm GI: COMMON NORMALS: Normal to inspection, nondistended, normoactive bowel sounds present, Soft to palpation and non-tender PALPATION: Yes Soft to palpation : COMMON NORMALS: Yes no CVA tenderness BLADDER/KIDNEY EXAM: Yes no CVA tenderness Back/Pelvis: COMMON NORMALS: no CVA tenderness Extremity: COMMON NORMALS: normal to inspection, full ROM and capillary refill normal Neuro: COMMON NORMALS: patient oriented x3, CN's II-XII intact bilaterally and moves all extremities Psych: COMMON NORMALS: mental status grossly normal, Normal thought process present, cooperative and normal affect THOUGHT PROCESS: Normal thought process present Course Reevaluation(s): Reevaluation #1: Doing better after IV fluids and antiemetics. Headache improved after IV Tylenol. Discussed with patient urinalysis is pending Vital Signs: Vital signs: Vital Signs Temperature 98.3 F 03/20/25 16:56 Pulse Rate 78 03/20/25 16:56 Respiratory Rate 16 03/20/25 16:56 Blood Pressure 156/82 03/20/25 19:02 Pulse Oximetry 98 03/20/25 19:02 Oxygen Delivery Me thod Room Air 03/20/25 17:29 MDM - Nausea/Vomiting/Diarrhea Medical Decision Making Patient is a 69-year-old female with recent PTCA and OM1 EDD with nausea and vomiting x 2 days and diarrhea x 3 days. No recent antibiotics. No diarrhea since she has been here. Urinalysis is still pending, however creatinine is up from baseline at 1.7, with baseline 1.3?1.4. Will give 1 L IV fluid. On acute abdominal series official report is pending, however there is nonspecific bowel gas changes. Will evaluate for CT without contrast. Patient has Zofran from her primary care physician. I would advise holding the Lasix, clear liquid diet only until improves. Medical Records I reviewed the patient's medical records. Lab Data I reviewed the patient's lab results. 03/20/25 17:10 03/20/25 17:10 Radiology Impressions Chest/Abdomen X-ray 03/20/25 17:03 IMPRESSION: 1. No evidence of intestinal obstruction or perforation radiographically. 2. Moderate fecal load in the colon. 3. No acute cardiopulmonary findings radiographically. 4. Mild cardiomegaly. 5. Atherosclerotic coronary artery calcifications. Abdomen/Pelvis CT 03/20/25 18:27 IMPRESSION: 1. No acute findings in the abdomen or pelvis. 2. Stable hepatomegaly Laboratory Results WBC 8.19 10^3/uL (3.29-11.43) 03/20/25 17:10 RBC 4.59 10^6/uL (3.85-5.65) 03/20/25 17:10 Hgb 13.40 g/dL (11.27-16.99) 03/20/25 17:10 Hct 42.4 % (36-47) 03/20/25 17:10 MCV 92.4 fl (85-98) 03/20/25 17:10 MCH 29.2 pg (27-33) 03/20/25 17:10 MCHC 31.6 g/dL (30-55) 03/20/25 17:10 RDW 15.4 % (12.1-15.1) H 03/20/25 17:10 Plt Count 337 10^3/cmm (157-399) 03/20/25 17:10 MPV 10.8 fL (7.4-10.4) H 03/20/25 17:10 Neut % (Auto) 66.7 % 03/20/25 17:10 Lymph % (Auto) 21.1 % 03/20/25 17:10 [place] % (Auto) 8.1 % 03/20/25 17:10 Eos % (Auto) 2.6 % 03/20/25 17:10 Baso % (Auto) 0.9 % 03/20/25 17:10 Neut # (Auto) 5.47 10^3/uL (1.8-7.7) 03/20/25 17:10 Lymph # (Auto) 1.7 10^3/uL (0.8-4.8) 03/20/25 17:10 [place] # (Auto) 0.7 10^3/uL (0.2-0.9) 03/20/25 17:10 Eos # (Auto) 0.2 10^3/uL (0.0-0.8) 03/20/25 17:10 Baso # (Auto) 0.1 10^3/uL (0.0-0.1) 03/20/25 17:10 Nucleated RBC % (auto) 0 % 03/20/25 17:10 Nucleated RBCs # 0.0 /100WBC 03/20/25 17:10 Sodium 137 mmol/L (136-145) 03/20/25 17:10 Potassium 4.7 mmol/L (3.5-5.1) 03/20/25 17:10 Chloride 97 mmol/L (98-107) L 03/20/25 17:10 Carbon Dioxide 26 mmol/L (22-29) 03/20/25 17:10 Anion Gap 18.7 (5-19) 03/20/25 17:10 BUN 37 mg/dL (8-23) H 03/20/25 17:10 Creatinine 1.7 mg/dL (0.5-0.9) H 03/20/25 17:10 GFR Calculation 29.7 mL/min (90-130) L 03/20/25 17:10 Glucose 218 mg/dL (65-115) H 03/20/25 17:10 Calculated Osmolality 299 mOsm/kg (285-295) H 03/20/25 17:10 Calcium 9.5 mg/dL (8.5-10.5) 03/20/25 17:10 Total Bilirubin 0.5 mg/dL (0.15-1.2) 03/20/25 17:10 AST 12 U/L (0-32) 03/20/25 17:10 ALT 16 U/L (0-33) 03/20/25 17:10 Alkaline Phosphatase 79 U/L (35-105) 03/20/25 17:10 Troponin T Baseline 23 ng/L (0-10) H 03/20/25 17:10 Troponin T 120 Minute 24.01 ng/L (0-10) H 03/20/25 19:07 Delta Troponin T 1.01 ABS# (0-10) 03/20/25 19:07 NT-Pro-B Natriuret Pep 304 pg/mL (0-125) H 03/20/25 17:10 Total Protein 6.5 g/dL (6.6-8.7) L 03/20/25 17:10 Albumin 3.9 g/dL (3.5-5.2) 03/20/25 17:10 Globulin 2.6 g/dL (1.3-4.6) 03/20/25 17:10 Lipase 407 U/L (13-60) H 03/20/25 17:10 Urine Color Yellow (Yellow) 03/20/25 20:40 Urine Appearance Clear (CLEAR) 03/20/25 20:40 Urine pH 6.0 (5-7) 03/20/25 20:40 Ur Specific [place] 1.010 (1.005-1.030) 03/20/25 20:40 Urine Protein Negative (Negative) 03/20/25 20:40 Urine Glucose (UA) Negative (Normal) 03/20/25 20:40 Urine Ketones Negative (Negative) 03/20/25 20:40 Urine Blood Negative (Negative) 03/20/25 20:40 Urine Nitrate Negative (Negative) 03/20/25 20:40 Urine Bilirubin Negative (Negative) 03/20/25 20:40 Urine Urobilinogen 0.2 mg/dL (Negative) 03/20/25 20:40 Ur Leukocyte Esterase Negative (Negative) 03/20/25 20:40 Urine RBC None /hpf (0-2) 03/20/25 20:40 Urine WBC None /hpf (0-5) 03/20/25 20:40 Ur Squamous Epith Cells 3-5 /hpf (0-5) 03/20/25 20:40 Amorphous Sediment Not Reportable 03/20/25 20:40 Urine Bacteria None /hpf (NONE) 03/20/25 20:40 All radiology interpretation(s) finalized by discharge Discharge Plan Discharge Patient Disposition: Home Clinical Impression: Gastroenteritis Condition: Stable Prescriptions: No Action (DME) Manual wheelchair See Rx Instructions .Route .MEDSUPPLY Qty: 1 0RF Rx Instructions: As directed furosemide 40 mg tablet 40 mg PO DIRECTED Qty: 270 3RF Rx Instructions: take 80 mg in the AM and 40 mg in the PM insulin glargine [Lantus Solostar U-100 Insulin] 100 unit/mL (3 mL) insulin pen 60 unit SUBCUT BID vortioxetine 20 mg tablet 20 mg PO DAILY Qty: 30 3RF nitroglycerin [Nitrostat] 0.4 mg tablet, sublingual 0.4 mg SUBLINGUAL Q5M PRN (Reason: Chest Pain) Qty: 30 6RF Rx Instructions: do not exceed 3 doses per episode isosorbide mononitrate 30 mg tablet extended release 24 hr 30 mg PO DAILY Qty: 30 5RF cyanocobalamin (vitamin B-12) [Vitamin B-12] 1,000 mcg tablet 1,000 mcg PO DAILY Qty: 30 6RF cholecalciferol (vitamin D3) 50 mcg (2,000 unit) capsule 50 mcg PO DAILY Qty: 30 6RF clopidogrel 75 mg tablet 75 mg PO DAILY Qty: 90 3RF (DME) FreeStyle Lou 14 Day Galva Misc See Rx Instructions .Route Qty: 2 12RF Rx Instructions: As directed (DME) FreeStyle Lou 14 Day Sensor Kit See Rx Instructions .Route Qty: 2 11RF Rx Instructions: As directed (DME) insulin syringe-needle U-100 1 mL 29 gauge x 1/2 syringe See Rx Instructions .Route Qty: 100 6RF Rx Instructions: As directed to inject insulin 2-3x/day spironolactone 25 mg tablet 25 mg PO DAILY Qty: 30 6RF allopurinol 300 mg tablet 300 mg PO DAILY Qty: 90 3RF potassium chloride 20 mEq tablet,ER particles/crystals 20 meq PO BID Qty: 180 3RF pregabalin 50 mg capsule 50 mg PO BID Qty: 60 5RF (DME) pen needle, diabetic [TechLITE Pen Needle] 31 gauge x 5/16 needle See Rx Instructions .ROUTE .MEDSUPPLY Qty: 100 6RF Rx Instructions: As directed lorazepam 1 mg tablet 1 mg PO BID PRN (Reason: anxiety) Qty: 60 2RF dulaglutide 1.5 mg/0.5 mL pen injector 1.5 mg SUBCUT Q7D Qty: 2 3RF Rx Instructions: Sunday' ferrous sulfate 325 mg (65 mg iron) tablet 325 mg PO BID Qty: 60 3RF buspirone 10 mg tablet 10 mg PO TID Qty: 90 6RF ondansetron HCl 4 mg tablet 4 mg PO Q8H PRN (Reason: nausea and vomiting) Qty: 30 2RF acetaminophen 500 mg Tablet 1,000 mg PO Q6H PRN (Reason: Pain) hydralazine 25 mg tablet 25 mg PO TID PRN (Reason: high bp) levothyroxine 50 mcg tablet 50 mcg PO QAM budesonide 0.5 mg/2 mL suspension for nebulization 0.5 mg inhalation BID PRN (Reason: COPD) aspirin 81 mg Tablet,Delayed Release (Dr/Ec) 81 mg PO DAILY 30 Days Qty: 30 0RF metoprolol tartrate 25 mg Tablet 25 mg PO BID@0900,2100 30 Days Qty: 30 0RF atorvastatin [Lipitor] 40 mg tablet 40 mg PO DAILY 30 Days Qty: 30 3RF insulin aspart U-100 [Novolog FlexPen U-100 Insulin] 100 unit/mL (3 mL) insulin pen See Rx Instructions .ROUTE .COMPLEX Qty: 15 0RF Rx Instructions: Inject, subcut, 3 times daily, after meals, based on low-dose sliding scale apixaban 5 mg tablet 5 mg PO BID Qty: 180 3RF Rx Instructions: start tonight Discharge Orders: Discharge ED (Routine); Ordered 03/20/25 Ordered By: Janna Diggs Referrals: Farhat Acosta MD [Primary Care Provider, Family Practice] Discharge Diet: Clear Liquid and Full LIquid Patient Instructions: Full Liquid Diet, Clear Liquid Diet (ED), Gastroenteritis (ED), Patient Portal & Kiersten Instructions Activity Restrictions/Additional Instructions: - Hold the Lasix and spironolactone until you can follow-up with your doctor on Sunday regarding repeating labs - Clear liquid diet for at least 24 hours, then may improved to a full liquid diet - Return to ED if you continue to do this or this happens again. As we discussed, it is very important to hold down your apixaban, and clopidogrel with your recent stents. 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
[2025-03-20] MEDS: ondansetron 2 mg/ML SDV 2 mL 4 MG IVP (17:24)
[2025-03-20 17:29] VITALS: BP 126/74; O2SAT 97
[2025-03-20 17:33] LABS: Hematocrit 42.4 % (36-47); Hemoglobin 13.40 g/dL (11.27-16.99); Mean Corpuscular HGB Conc 31.6 g/dL (30-55); Mean Corpuscular Hemoglobin 29.2 pg (27-33); Mean Corpuscular Volume 92.4 fl (85-98); Nucleated Red Blood Cells % 0 %; Platelet Count 337 10^3/cmm (157-399); Red Blood Count 4.59 10^6/uL (3.85-5.65); White Blood Count 8.19 10^3/uL (3.29-11.43)
[2025-03-20 17:55] LABS: Alanine Aminotransferase 16 U/L (0-33); Albumin Level 3.9 g/dL (3.5-5.2); Alkaline Phosphatase 79 U/L (35-105); Aspartate Amino Transferase 12 U/L (0-32); Blood Urea Nitrogen 37 mg/dL (8-23); Calcium 9.5 mg/dL (8.5-10.5); Carbon Dioxide 26 mmol/L (22-29); Chloride 97 mmol/L (98-107); Creatinine Clr Calc Pharmacy 43.9505; Globulin 2.6 g/dL (1.3-4.6); Glucose 218 mg/dL (65-115); Osmolality Calculated 299 mOsm/kg (285-295); Sodium 137 mmol/L (136-145); Total Protein 6.5 g/dL (6.6-8.7); Troponin(5th) Baseline 23 ng/L (0-10)
[2025-03-20 17:57] LABS: Anion Gap 18.7 (5-19); Potassium 4.7 mmol/L (3.5-5.1)
[2025-03-20 18:17] LABS: Lipase 407 U/L (13-60)
--- NOTE | 2025-03-20 18:27 | CTR_ITS ---
PROCEDURE INFORMATION: Exam: CT Abdomen And Pelvis Without Contrast Exam date and time: 03/20/2025 6:41 PM Age: 69 years old Clinical indication: Pain and abnormal findings; Abnormal lab test; Elevated lipase; Nausea and vomiting; Abdominal pain; Generalized; Prior surgery; Surgery date: <1 month; Surgery type: Coronary stent two weeks ago. Cardiac node ablation. Gb. Hysterectomy. Csection. Diffuse abd pain with n/v/d. Elevated lipase. ; Additional info: Abdominal pain, non specific gas on xray, creat 1.7 TECHNIQUE: Imaging protocol: Computed tomography of the abdomen and pelvis without contrast. Radiation optimization: All CT scans at this facility use at least one of these dose optimization techniques: automated exposure control; mA and/or kV adjustment per patient size (includes targeted exams where dose is matched to clinical indication); or iterative reconstruction. COMPARISON: CT abdomen pelvis con [id number] 08/15/2023 7:02 PM RADIATION DOSE METRICS: Total DLP (mGy-cm): 1181.12 FINDINGS: Liver: Stable hepatomegaly. The liver measures 22 cm in the craniocaudal dimension. Gallbladder and biliary ducts: Surgically absent gallbladder. No significant biliary ductal dilatation. Pancreas: Normal. No ductal dilation. Spleen: Normal. No splenomegaly. Adrenal glands: Normal. No mass. Kidneys and ureters: No suspicious renal lesions. No hydronephrosis or nephrolithiasis. No ureteral stones. Stomach and bowel: Normal caliber of the bowel without evidence of obstruction. No focal bowel wall thickening or inflammation. Appendix: Atrophic but otherwise unremarkable. Intraperitoneal space: Unremarkable. No free air. No significant fluid collection. Vasculature: Atherosclerotic calcifications of the abdominal aorta without aneurysm. Lymph nodes: Unremarkable. No enlarged lymph nodes. Urinary bladder: Unremarkable. Reproductive: Surgically absent uterus. No significant adnexal lesions. Bones/joints: No significant focal osseous lesions. No fractures or malalignment. Advanced degenerative disc changes at L3-L4 and L4-L5. Soft tissues: Unremarkable. CT/CT abdomen pelvis con [id number] IMPRESSION: 1. No acute findings in the abdomen or pelvis. 2. Stable hepatomegaly
[2025-03-20 18:43] LABS: NT Pro B Type Natriuretic Pept 304 pg/mL (0-125)
[2025-03-20] MEDS: acetaminophen 1,000 MG/100 ML PIGGYBACK 400 MG IV (18:56)
[2025-03-20 19:02] VITALS: BP 156/82; O2SAT 98
--- NOTE | 2025-03-20 19:19 | ECG_ITS ---
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 Measurements Intervals [place] Rate: 69 P: 0 GA: 0 QRS: 40 QRSD: 102 T: 39 QT: 397 QTc: 426 Interpretive Statements SUPRAVENTRICULAR RHYTHM ABNORMAL RHYTHM ECG Compared to ECG 03/20/2025 17:29:33 Supraventricular rhythm now present Sinus rhythm no longer present Sinus arrhythmia no longer present First degree AV block no longer present Electronically Signed On 03-21-2025 14:40:16 CDT by Sherman Chapman M.D. [email or web address]
[2025-03-20 19:45] LABS: Troponin 5 2HR 24.01 ng/L (0-10); Troponin 5 2HR Delta 1.01 ABS# (0-10)
[2025-03-20 20:47] LABS: Glucose Urine UA Negative (Normal); Nitrate Urine Negative (Negative); Specific Gravity, Urine 1.010 (1.005-1.030)
[2025-03-20 21:19] LABS: Add Urine Microscopic? YES; UA Manual Slide Review YES; UA Slide Review UA Slide Review Perf
--- OUTSIDE RECORDS SUMMARY | 2025-05-03 19:00 | XMS_ITS | Clinical Summary ---
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 06-18 00:00: [...] ON SUPPLEMENTAL OXYGEN Active 06-18 00:00: 00 ALF (CURRENT) USE OF ASPIRIN Active 06-18 00:00: 00 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) USE OF ANTICOAGULAN TS Active 06-18 00:00: 00 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) USE OF ANTITHROMBOT ICS/ANTIPLAT ELETS Active [...] 02-03 00:00: 00 02-11 00:00 :00 No [id number] Per instruc tions Per instructio ns (route: oral) Med Classific ation: Central Nervous System Agents Breo Ellipta 200 mcg-25 mcg/dose powder for inhalation 01-31 00:00: 00 06-01 23:59 :00 No [id number] 1 inhalat ion DAILY 1 inhalation DAILY (route: inhalation ) Med Classific ation: Respirato ry Therapy Agents bumetanide 2 mg tablet 01-31 00:00: 06-01 23:59 :00 No [id number] 2 mg DAILY 2 mg DAILY (route: oral) Med Classific ation: Cardiovas cular Therapy Agents methylpredn isolone 4 mg tablets in a dose pack 01-31 00:00: 00 02-11 00:00 :00 No [id number] Per instruc tions Per instructio ns (route: oral) Med Classific ation: Endocrine Lantus U-100 Insulin 100 unit/mL subcutaneou s solution 01-29 00:00: 00 06-01 23:59 :00 No [id number] 90 unit 2 TIMES DAILY 90 unit 2 TIMES DAILY (route: subcutaneo us) Med Classific ation: Endocrine allopurinol 300 mg tablet 01-27 00:00: 00 06-01 23:59 :00 No [id number] 1 tablet DAILY 1 tablet DAILY (route: oral) Med Classific ation: Gout and Hyperuric emia Therapy diltiazem ER 120 mg tablet,exte nded release 24 hr 01-27 00:00: 00 06-01 23:59 :00 No [id number] 1 tablet DAILY 1 tablet DAILY (route: oral) Med Classific ation: Cardiovas cular Therapy Agents Eliquis 5 mg tablet 01-27 00:00: 00 06-01 23:59 :00 No [id number] 1 tablet 2 TIMES DAILY 1 tablet 2 TIMES DAILY (route: oral) Med Classific ation: Hematolog ical Agents furosemide 40 mg tablet 01-27 00:00: 00 02-11 00:00 :00 No [id number] Per instruc tions TWICE DAILY Per instructio ns TWICE DAILY (route: oral) Med Classific ation: Cardiovas cular Therapy Agents levothyroxi ne 50 mcg tablet 01-27 00:00: 00 06-01 23:59 :00 No [id number] 1 tablet DAILY 1 tablet DAILY (route: oral) Med Classific ation: Endocrine potassium chloride ER 20 mEq tablet,exte nded release(par t/cryst) 01-27 00:00: 00 06-01 23:59 :00 No [id number] 1 tablet 2 TIMES DAILY 1 tablet 2 TIMES DAILY (route: oral) Med Classific ation: Electroly billie [place] Products simvastatin 10 mg tablet 01-27 00:00: 00 02-11 00:00 :00 No [id number] Per instruc tions EVERY Per instructio ns EVERY (route: oral) Med Classific ation: Cardiovas cular Therapy Agents acetazolami de 250 mg tablet 01-21 00:00: 00 02-11 00:00 :00 No [id number] Per instruc tions DAILY Per instructio ns DAILY (route: oral) Med Classific ation: Cardiovas cular Therapy Agents lorazepam 1 mg tablet 01-17 00:00: 00 06-01 23:59 :00 No [id number] 1 tablet 2 TIMES DAILY 1 tablet 2 TIMES DAILY (route: oral) Med Classific ation: Central Nervous System Agents metoprolol tartrate 100 mg tablet 01-13 00:00: 00 06-01 23:59 :00 No [id number] 1 tablet 2 TIMES DAILY 1 tablet 2 TIMES DAILY (route: oral) Med Classific ation: Cardiovas cular Therapy Agents Ozempic 0.25 mg or 0.5 mg (2 mg/3 mL) subcutaneou s pen injector 01-10 00:00: 00 06-01 23:59 :00 No [id number] Per instruc tions ONCE EVERY SEVEN DAYS Per instructio ns ONCE EVERY SEVEN DAYS (route: subcutaneo us) Med Classific ation: Endocrine buspirone 10 mg tablet 01-09 00:00: 00 06-01 23:59 :00 No [id number] 1 tablet 3 TIMES DAILY 1 tablet 3 TIMES DAILY (route: oral) Med Classific ation: Central Nervous System Agents Trintellix 10 mg tablet 01-09 00:00: 00 06-01 23:59 :00 No [id number] 1 tablet DAILY 1 tablet DAILY (route: oral) Med Classific ation: Central Nervous System Agents pregabalin 50 mg capsule 01-06 00:00: 00 06-01 23:59 :00 No [id number] 1 capsule 2 TIMES DAILY 1 capsule 2 TIMES DAILY (route: oral) Med Classific ation: Central Nervous System Agents acetaminoph en 500 mg tablet 02-11 00:00: 00 06-01 23:59 :00 No [id number] 2 tablet EVERY 6 HOURS 2 tablet EVERY 6 HOURS (route: oral) Med Classific ation: Analgesic , Anti-infl ammatory or Antipyret ic cholecalcif frandy (vitamin D3) 50 mcg (2,000 unit) capsule 02-11 00:00: 00 06-01 23:59 :00 No [id number] 1 capsule DAILY 1 capsule DAILY (route: oral) Med Classific ation: Electroly te Balance-N utritiona l Products clopidogrel 75 mg tablet 02-11 00:00: 00 06-01 23:59 :00 No [id number] 1 tablet DAILY 1 tablet DAILY (route: oral) Med Classific ation: Hematolog ical Agents cyanocobala min (vit B-12) 1,000 mcg tablet 02-11 00:00: 00 06-01 23:59 :00 No [id number] 1 tablet DAILY 1 tablet DAILY (route: oral) Med Classific ation: Electroly te Balance-N utritiona l Products hydralazine 50 mg tablet 02-11 00:00: 00 06-01 23:59 :00 No [id number] 1 tablet 3 TIMES DAILY 1 tablet 3 TIMES DAILY (route: oral) Med Classific ation: Cardiovas cular Therapy Agents hydrocodone 5 mg-acetamin ophen 325 mg tablet 02-11 00:00: 00 06-01 23:59 :00 No [id number] 1 tablet EVERY 6 HOURS 1 tablet EVERY 6 HOURS (route: oral) Med Classific ation: Analgesic , Anti-infl ammatory or Antipyret ic ipratropium bromide 0.02 % solution for inhalation 02-11 00:00: 06-01 23:59 :00 No [id number] 0.5 mg EVERY 6 HOURS 0.5 mg EVERY 6 HOURS (route: inhalation ) Med Classific ation: Respirato ry Therapy Agents ketoconazol e 2 % shampoo 02-11 00:00: 00 06-01 23:59 :00 No [id number] 1 mL DIRECTED 1 mL DIRECTED (route: topical) Med Classific ation: Dermatolo gical ketoconazol e 2 % topical cream 02-11 00:00: 00 06-01 23:59 :00 No [id number] 1 inch 2 TIMES DAILY 1 inch 2 TIMES DAILY (route: topical) Med Classific ation: Dermatolo gical levalbutero l 0.63 mg/3 mL solution for nebulizatio n 02-11 00:00: 00 06-01 23:59 :00 No [id number] 3 mL EVERY 6 HOURS 3 mL EVERY 6 HOURS (route: inhalation ) Med Classific ation: Respirato ry Therapy Agents levofloxaci n 750 mg tablet 02-11 00:00: 00 02-14 23:59 :00 No [id number] 1 tablet DAILY 1 tablet DAILY (route: oral) Med Classific ation: Anti-Infe ctive Agents Medrol 4 mg tablet 02-11 00:00: 00 02-19 23:59 :00 No [id number] Per instruc tions DAILY Per instructio ns DAILY (route: oral) Med Classific ation: Endocrine metolazone 10 mg tablet 02-11 00:00: 00 06-01 23:59 :00 No [id number] 1 tablet DAILY 1 tablet DAILY (route: oral) Med Classific ation: Cardiovas cular Therapy Agents nitroglycer in 0.4 mg sublingual tablet 02-11 00:00: 00 06-01 23:59 :00 No [id number] 1 tablet DIRECTED 1 tablet DIRECTED (route: sublingual ) Med Classific ation: Cardiovas cular Therapy Agents ondansetron 4 mg disintegrat ing tablet 02-11 00:00: 00 06-01 23:59 :00 No [id number] 1 tablet EVERY 8 HOURS 1 tablet EVERY 8 HOURS (route: oral) Med Classific ation: Gastroint estinal Therapy Agents Robitussin ER 30 mg/5 mL oral suspension, extended release 02-11 00:00: 00 06-01 23:59 :00 No [id number] 5 mL EVERY 12 HOURS 5 mL EVERY 12 HOURS (route: oral) Med Classific ation: Respirato ry Therapy Agents simvastatin 40 mg tablet 02-11 00:00: 00 06-01 23:59 :00 No [id number] 1 tablet BEDTIME 1 tablet BEDTIME (route: oral) Med Classific ation: Cardiovas cular Therapy Agents triamcinolo ne acetonide 0.1 % topical ointment 02-11 00:00: 00 06-01 23:59 :00 No [id number] 1 inch 2 TIMES DAILY 1 inch 2 TIMES DAILY (route: topical) Med Classific ation: Dermatolo gical oxygen gas for inhalation 02-14 00:00: 00 06-01 23:59 :00 No [id number] 3 Liter O2 - CONTINUOUS 3 Liter O2 - CONTINUOUS (route: inhalation ) Med Classific ation: Medical Supplies and Durable Medical Equipment (DME) fluconazole 200 mg tablet 02-20 00:00: 00 02-25 23:59 :00 No [id number] 1 tablet EVERY 72 HOURS 1 tablet EVERY 72 HOURS (route: oral) Med Classific ation: Anti-Infe ctive Agents Nystop 100,000 unit/gram topical powder 02-20 00:00: 00 06-01 23:59 :00 No [id number] 1 unit 2 TIMES DAILY 1 unit 2 TIMES DAILY (route: topical) Med Classific ation: Dermatolo gical acetaminoph en 500 mg tablet 03-06 00:00: 00 Yes [id number] 2 tablet EVERY 6 HOURS 2 tablet EVERY 6 HOURS (route: oral) Med Classific ation: Analgesic , Anti-infl ammatory or Antipyret ic allopurinol 300 mg tablet 03-06 00:00: 00 Yes [id number] 1 tablet DAILY 1 tablet DAILY (route: oral) Med Classific ation: Gout and Hyperuric emia Therapy aspirin 81 mg tablet 03-06 00:00: 00 Yes [id number] 1 tablet DAILY 1 tablet DAILY (route: oral) Med Classific ation: Hematolog ical Agents atorvastati n 40 mg tablet 03-06 00:00: 00 Yes [id number] 1 tablet DAILY 1 tablet DAILY (route: oral) Med Classific ation: Cardiovas cular Therapy Agents budesonide 0.5 mg/2 mL suspension for nebulizatio n 03-06 00:00: 00 Yes [id number] 2 mL 2 TIMES DAILY 2 mL 2 TIMES DAILY (route: inhalation ) Med Classific ation: Respirato ry Therapy Agents buspirone 10 mg tablet 03-06 00:00: 00 Yes [id number] 1 tablet 3 TIMES DAILY 1 tablet 3 TIMES DAILY (route: oral) Med Classific ation: Central Nervous System Agents cholecalcif frandy (vitamin D3) 50 mcg (2,000 unit) tablet 03-06 00:00: 00 Yes [id number] 1 tablet DAILY 1 tablet DAILY (route: oral) Med Classific ation: Electroly te Balance-N utritiona l Products clopidogrel 75 mg tablet 03-06 00:00: 00 Yes [id number] 1 tablet DAILY 1 tablet DAILY (route: oral) Med Classific ation: Hematolog ical Agents cyanocobala min (vit B-12) 1,000 mcg tablet 03-06 00:00: 00 Yes [id number] 1 tablet DAILY 1 tablet DAILY (route: oral) Med Classific ation: Electroly te Balance-N utritiona l Products Eliquis 5 mg tablet 03-06 00:00: 00 Yes [id number] 1 tablet 2 TIMES DAILY 1 tablet 2 TIMES DAILY (route: oral) Med Classific ation: Hematolog ical Agents ferrous sulfate 325 mg (65 mg iron) tablet 03-06 00:00: 00 Yes [id number] 1 tablet 2 TIMES DAILY 1 tablet 2 TIMES DAILY (route: oral) Med Classific ation: Electroly te Balance-N utritiona l Products furosemide 40 mg tablet 03-06 00:00: 00 Yes [id number] 1 tablet 2 TIMES DAILY 1 tablet 2 TIMES DAILY (route: oral) Med Classific ation: Cardiovas cular Therapy Agents hydralazine 25 mg tablet 03-06 00:00: 00 Yes [id number] 1 tablet 3 TIMES DAILY 1 tablet 3 TIMES DAILY (route: oral) Med Classific ation: Cardiovas cular Therapy Agents isosorbide mononitrate ER 30 mg tablet,exte nded release 24 hr 03-06 00:00: 00 Yes [id number] 1 tablet DAILY 1 tablet DAILY (route: oral) Med Classific ation: Cardiovas cular Therapy Agents Lantus Solostar U-100 Insulin 100 unit/mL (3 mL) subcutaneou s pen 03-06 00:00: 00 Yes [id number] 30 unit 2 TIMES DAILY 30 unit 2 TIMES DAILY (route: subcutaneo us) Med Classific ation: Endocrine levothyroxi ne 50 mcg tablet 03-06 00:00: 00 Yes [id number] 1 tablet DAILY 1 tablet DAILY (route: oral) Med Classific ation: Endocrine lorazepam 1 mg tablet 03-06 00:00: 00 Yes [id number] 1 tablet 2 TIMES DAILY 1 tablet 2 TIMES DAILY (route: oral) Med Classific ation: Central Nervous System Agents metoprolol tartrate 25 mg tablet 03-06 00:00: 00 Yes [id number] 1 tablet 2 TIMES DAILY 1 tablet 2 TIMES DAILY (route: oral) Med Classific ation: Cardiovas cular Therapy Agents nitroglycer in 0.4 mg sublingual tablet 03-06 00:00: 00 Yes [id number] 1 tablet DIRECTED 1 tablet DIRECTED (route: sublingual ) Med Classific ation: Cardiovas cular Therapy Agents Novolin N FlexPen 100 unit/mL (3 mL) subcutaneou s insulin pen 03-06 00:00: 00 Yes [id number] Per instruc tions DIRECTED Per instructio ns DIRECTED (route: subcutaneo us) Med Classific ation: Endocrine potassium chloride ER 20 mEq tablet,exte nded release 03-06 00:00: 00 Yes [id number] 1 tablet 2 TIMES DAILY 1 tablet 2 TIMES DAILY (route: oral) Med Classific ation: Electroly te Balance-N utritiona l Products pregabalin 50 mg capsule 03-06 00:00: 00 Yes [id number] 1 capsule 2 TIMES DAILY 1 capsule 2 TIMES DAILY (route: oral) Med Classific ation: Central Nervous System Agents spironolact one 25 mg tablet 03-06 00:00: 00 Yes [id number] 1 tablet DAILY 1 tablet DAILY (route: oral) Med Classific ation: Cardiovas cular Therapy Agents Trintellix 10 mg tablet 03-06 00:00: 00 Yes [id number] 1 tablet DAILY 1 tablet DAILY (route: oral) Med Classific ation: Central Nervous System Agents Trulicity 1.5 mg/0.5 mL subcutaneou s pen injector 03-06 00:00: 00 Yes [id number] 1.5 mg WEEKLY 1.5 mg WEEKLY (route: subcutaneo us) Med Classific ation: Endocrine oxygen gas for inhalation 03-10 00:00: 00 Yes [id number] 2 Liter O2 - CONTINUOUS 2 Liter [...] CODING GUIDELINES INCLUDING ATHSCL HEART DISEASE OF [place] CORONARY ARTERY W/O ANG PCTRS, OTHER PERSISTENT [...] CODING GUIDELINES INCLUDING ATHSCL HEART DISEASE OF [place] CORONARY ARTERY W/O ANG PCTRS, OTHER PERSISTENT [...] MAINTAIN SITUATIONAL AWARENESS AND WILL NOTIFY CLINICAL [employer] LABORER AND PHYSICIAN/PROVIDER WITH ANY CHANGE IN CONDITION. 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 SKILLED NURSE WILL MAINTAIN SITUATIONAL AWARENESS AND WILL NOTIFY CLINICAL [employer] LABORER AND PHYSICIAN/PROVIDER WITH ANY CHANGE IN CONDITION.] [...] CARE WILL BE ESTABLISHED THAT MEETS PATIENT'S RESIDENTIAL NEEDS AND INCLUDES PATIENT GOAL FOR HOME [...] End Date/Time Encounter Type Admission Type Attending [facility] Care Facility Care Department Encounter ID Discharge Date Discharge Status Discharge Condition Discharge Reason Percent Goals Met 2025-03-06 00:00:00 2025-05-04 00:00:00 [facility] [id number]
== END 2025-03-20 21:13 | disposition home or self-care (01) ==
PROVIDERS: Emergency Provider Physician Assistant; PCP Family Medicine
DX: K52.9 Noninfective gastroenteritis and colitis, unspecified (principal); Z79.4 Long term (current) use of insulin; Z79.02 Long term (current) use of antithrombotics/antiplatelets; Z79.82 Long term (current) use of aspirin; I25.110 Atherosclerotic heart disease of native coronary artery with unstable angina pectoris; J44.9 Chronic obstructive pulmonary disease, unspecified; E11.22 Type 2 diabetes mellitus with diabetic chronic kidney disease; I13.0 Hypertensive heart and chronic kidney disease with heart failure and stage 1 through stage 4 chronic kidney disease, or unspecified chronic kidney disease; N18.9 Chronic kidney disease, unspecified; I50.9 Heart failure, unspecified
CPT/HCPCS: 36415; 74022; 74176; 80053; 81001; 83690; 83880; 84484; 85025; 93005; 96374; 96375; 99285; J0131; J0780; J1100; J2405; J7030

== ENCOUNTER 2025-03-22 15:38 | Emergency (ER) | payer MEDICARE, MEDICAID, SELFPAY ==
[2025-03-22 15:38] VITALS: BP 160/94; PULSE 67; RESP 17; TEMP 37.1; O2SAT 99; BMI 43.6
--- OUTSIDE RECORDS SUMMARY | 2025-03-22 15:44 | XMS_ITS | Clinical Summary ---
Author Organization [facility] Address [address] [facility] Attn: Epic Prelude ADT DANILO JOHNSTON [address] Care Team Providers Care Conservation Scientist Name Role Phone Farhat Acosta MD Primary Care Provider [phone] Allergies Active Allergy Reactions Criticality Noted Date Comments Amiodarone Renal Dysfunctions Medium 07/31/2018 Empagliflozin Other (See Comments) 08/20/2024 Yeast infections Erythromycin Rash Low 04/26/2009 Meperidine (Pf) Nausea and Vomiting Low 04/26/2009 Morphine Unknown 04/24/2009 Oxycodone Mdi-Hgbdmeovw-Sgl Nausea and Vomiting Low 04/26/2009 Oxycodone-Acetaminophe n [...] Active sodium chloride (OCEAN) 0.65 % Aerosol, Volin Administer 2 Sprays in each nostril PRN for Allergies. 9 Active polyethylene glycol (MIRALAX) 17 gram Powder in Packet Take 1 Packet (17 Grams) by mouth daily. 9 Active bisacodyL (DULCOLAX) 10 mg Suppository Insert 10 mg by rectum 1 time daily as needed for Constipation. 9 Active Sodium Chloride-Aloe Vera Volin, Non-Aerosol Administer 1 Volin in each nostril 1 time daily as [...] tablet Take 50 mcg by mouth daily product safety associate. 8 Active apixaban (ELIQUIS) 5 mg tablet [...] 1 5 Active naloxone (NARCAN) 4 mg/spray Volin, Non-Aerosol EMERGENCY USE ONLY: Administer 1 spray [...] pain 08/19/2024 Coronary artery disease invo lving [place] coronary artery of [place] heart with unstable angina pectoris 08/19/2024 Acute [...] 01/23/2018 ASHD (arteriosclerotic heart disease) 01/23/2018 [place] (myocardial infarction) 01/23/2018 Stage 3b chronic kidney [...] on file Legal Sex Female 12:45 AM PSYCHOLOGY ASSISTANT Gender Identity Not on file Sexual Orientation [...] cm (5' 8 ) 08/19/2024 9:30 PM PSYCHOLOGY ASSISTANT Body Mass Index 45.46 08/19/2024 9:30 PM PSYCHOLOGY ASSISTANT Plan of Treatment Health Maintenance Due Date [...] 08/24/2025 08/24/2024 Medical Devices Implanted Type Area Field Service Specialist Device Identifier Shelf Expiration Date Model / Serial / Lot Stent Orsiro [place] 2.5x15mm [employer] Eluting [id number] - [id number] Implanted:Qty: 1 on 08/26/2024 by Naldo Merritt MD at [facility] Stent Left: Coronary [employer] [id number] 02/04/2026 [id number] / / [id number] Stent Orsiro [place] 2.5x18mm [employer] Eluting [id number] - [id number] Implanted:Qty: 1 on 08/26/2024 by Naldo Merritt MD at [facility] Stent Left: Coronary [employer] [id number] 02/18/2026 [id number] / / [id number] Procedures Procedure Name Priority Date/Time Associated Diagnosis Comments LIPID PANEL Routine 08/24/2024 6:21 AM CDT HEMOGLOBIN A1C Routine 07/31/2018 11:08 AM PSYCHOLOGY ASSISTANT from Last 3 Months or Most Recently Relevant to Health Maintenance Results * (ABNORMAL) LIPID PANEL (08/24/2024 6:21 AM CDT) CHOLESTEROL 124 <200 mg/dL 08/24/2024 1:03 PM T [facility] TRIGLYCERIDE 153(H) <150 mg/dL 08/24/2024 1:03 PM T [facility] HDL 37(L) 40 - 59 mg/dL 08/24/2024 1:03 PM T [facility] LDL CALCULATED 56 <100 mg/dL 08/24/2024 1:03 PM T [facility] NON-HDL CHOLESTEROL 87 <130 mg/dL 08/24/2024 1:03 PM [facility] Blood Venipuncture / Unknown 08/24/2024 6:21 AM CDT 08/24/2024 7:13 AM CDT [facility] - 08/24/2024 1:03 PM CDT TOTAL CHOLESTEROL [...] CHEMISTRY ORDERABLES Final Result Performing Organization Address [facility] Co de Phone Number [facility] CLIA # [id number] [address] [place] [id number] * (ABNORMAL) HEMOGLOBIN A1C (07/31/2018 11:08 AM PSYCHOLOGY ASSISTANT) HEMOGLOBIN A1C 9.3(H) 4.0 - 6.0 % 07/31/2018 2:04 PM [facility] EST. AVG GLUCOSE, A1C 220 mg/dL 07/31/2018 2:04 PM [facility] Blood Venipuncture / Unknown 07/31/2018 11:08 AM PSYCHOLOGY ASSISTANT 07/31/2018 12:23 PM PSYCHOLOGY ASSISTANT Narrative [facility] - 07/31/2018 2:04 PM PSYCHOLOGY ASSISTANT HGB A1C INTERPRETATION NORMAL: <5.7% PRE-DIABETES: 5.7 - 6.4% DIABETES: 6.5% OR GREATER us Jose Segura MD CHEMISTRY ORDERABLES F inal Result Performing Organization Address [facility] Co de Phone Number [facility] CLIA# [id number] [address] [place] [address] [facility] CLIA# [id number] [address] [place] [address] from Last 3 Months or Most Recently Relevant to Health Maintenance Insurance MEDICAID [facility] Advance Directives For more information, please contact: [phone] Documents on File Type Date Recorded Patient Industrial Hygienist Expl anation Advance Directive POA 08/21/2024 1:30 PM Ad lowry Directive POA * Full Code (Latest Code Status on File) Date Activated Date Inactivated Comments 08/26/2024 2:00 PM 08/27/2024 7:26 PM * Full Code Date Activated Date Inactivated Comments 08/21/2024 9:32 AM 08/26/2024 2:00 PM * Full Code Date Activated Date Inactivated Comments 08/19/2024 9:28 PM 08/21/2024 9:32 AM Care Teams Conservation Scientist Relationship Specialty Start Date End Date Farhat Acosta MD [address] [place] [address] [phone] PCP - General Family Practice 04/08/18
--- OUTSIDE RECORDS SUMMARY | 2025-03-22 15:44 | XMS_ITS | Encounter Summary ---
Author Organization [facility] Address [address] [place] [address] Care Team Providers Care Dusting And Brushing Machine Operator Name Role Phone Farhat Acosta MD Primary Care Provider [phone] Reason for Referral * CT Scan (Routine) [...] mellitus Dyslipidemia Respiratory illness Oxygen dependent [place] (myocardial infarction) ALONDRA (obstructive sleep apnea) Benign hypertension with CKD (chronic kidney disease) stage III (CMS/HCC) Referral of patient Type 2 diabetes mellitus with other circulatory complication, with long-term current use of insulin Pre-existing type 2 diabetes mellitus during , antepartum Procedures CT CARDIAC CHEST INTERPRETATION Jose Segura MD Referral ID Status Reason Start Date Expiration Date Visits Re quested Visits Authorized [id number] Closed 06/06/2018 07/07/2019 1 1 ENCHILADA Encounter Details Date Type Department Care Team (Latest Contact Info) Description 06/06/2018 Ancillary Orders [facility] Cardiac Thoracic Vascular Surg [place] [address] [place] [address] Jose Segura MD NO ADDRESS ON FILE Persistent atrial fibrillation (CMS/HCC); Stable angina; ASHD (arteriosclerotic heart disease); Typical atrial flutter ([facility]); Morbid obesity with body mass index of 40.0-49.9 (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); 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 ([facility]); Dyslipidemia; Respiratory illness; Oxygen dependent; [place] (myocardial infarction); ALONDRA (obstructive sleep apnea); Benign hypertension with CKD (chronic kidney disease) stage III ([facility]); Referral of patient; Type 2 diabetes mellitus with other circulatory complication, with long-term current use of insulin ([facility]); Pre-existing type 2 diabetes mellitus during , antepartum Social History Tobacco Use Types Packs/Day Years Used Date Smoking Tobacco: Never Alcohol Use Standard Drinks/Week Comments No 0 (1 standard drink = 0.6 oz pur e alcohol) Comments Unknown Sex and Gender Information Value Date Recorded Sex Assigned at Not on file 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COOK ENCHILADA Gender Identity Not on file Sexual Orientation Not on file documented as of this encounter Plan of Treatment Not on file documented as of this encounter Results * CT CARDIAC CHEST INTERPRETATION (06/06/2018 11:51 AM COOK ENCHILADA) Anatomical Region Laterality Modality Chest Computed Tomogra phy 06/06/2018 11:5 1 AM COOK ENCHILADA Impressions 06/06/2018 3:20 PM COOK ENCHILADA IMPRESSION: Mosaic attenuation is noted that can indicate small airways disease/bronchiolitis, active pneumonitis, chronic pulmonary vascular occlusive disease. Enlarged mediastinal lymph nodes, nonspecific but likely reactive in the absence of a known malignancy. If clinically desired, follow-up CT in three months may be of benefit to document stability. [id number] Narrative 06/06/2018 3:[address] CARDIAC CHEST INTERPRETATION; Reason For Exam: [...] may be of benefit to document stability. [id number] ORDERABLES Final Result documented in this encounter Visit Diagnoses Diagnosis Persistent atrial fibrillation (CMS/HCC) Atrial fibrillation Stable angina Other and unspecified angina pectoris ASHD (arteriosclerotic heart disease) Coronary atherosclerosis of unspecified type of vessel, [place] or graft Typical atrial flutter (CMS/HCC) Atrial [...] Oxygen dependent Dependence on supplemental oxygen [place] (myocardial infarction) Old myocardial infarction ALONDRA (obstructive [...] Coronary atherosclerosis of unspecified type of vessel, [place] or graft Typical atrial flutter (CMS/HCC) Atrial [...] Oxygen dependent Dependence on supplemental oxygen [place] (myocardial infarction) Old myocardial infarction ALONDRA (obstructive [...] antepartum documented in this encounter Care Teams Dusting And Brushing Machine Operator Relationship Specialty Start Date End Date Farhat Acosta MD [address] [place] [address] PCP - General Family Practice 04/08/18 documented as of this encounter
--- OUTSIDE RECORDS SUMMARY | 2025-03-22 15:44 | XMS_ITS | Encounter Summary ---
Author Organization [facility] [employer] Address [address] [facility] [address] [place] [address] Phone Care Team Providers Care Nitrocellulose Maker Name Role Phone Farhat Acosta MD Primary Care Provider [phone] Encounter Details Date Type Department Care Team (Late st Contact Info) Description 04/09/2019 Orders Only [facility] [address] [place] [address] Mo Bolaños MD [address] [facility] [address] [place] [address] Chronic kidney disease stage 3 [...] [facility] - 04/09/2019 6:37 AM CDT river boat captain lab [facility] [place] [address] [address] [place] [address] Trumpet Teacher: Dom Das DO MPH CLIA: [id number] us Mo Bolaños MD LAB BLOOD ORDERABLES Fi nal Result [facility] documented in this encounter Visit Diagnoses Diagnosis Chronic kidney disease stage 3 (HCC) documented in this encounter Care Teams Nitrocellulose Maker Relationship Specialty Start Date End Date Farhat Acosta MD PCP - General Family Medicine 09/30/18 documented as of this encounter
--- OUTSIDE RECORDS SUMMARY | 2025-03-22 15:44 | XMS_ITS | Clinical Summary ---
Author Organization [facility] Address [address] [place] [address] Care Team Providers Care Magistrate Name Role Phone Farhat Acosta MD Primary Care Provider [phone] Allergies Active Allergy Reactions Criticality Noted Date [...] (EXTERNAL RESULT ENTRY) Routine 07/29/2019 2:29 PM FRONT OF HOUSE MANAGER from Last 3 Months or Most Recently Relevant to Health Maintenance Results * Hemoglobin A1C (07/29/2019 2:29 PM FRONT OF HOUSE MANAGER) Hemoglobin A1C 9.5 Blood specimen (specimen) Venous blood / Unknown 07/29/2019 2:29 PM FRONT OF HOUSE MANAGER Narrative Darcy Villanueva MA - 10/06/2019 2:49 PM CDT Courtesy lab [facility] [place] [address] [address] [facility] [address] Kindergartner: Dom Das DO MPH CLIA: [id number] us Farhat Acosta MD LAB BLOOD ORDERABLES Final Resu lt from Last 3 Months or Most Recently Relevant to Health Maintenance Insurance Medicaid [place] ([id number]) [facility] Care Teams Magistrate Relationship Specialty Start Date End Date Farhat Acosta MD PCP - General Family Medicine 09/30/18
--- OUTSIDE RECORDS SUMMARY | 2025-03-22 15:44 | XMS_ITS | Encounter Summary ---
Author Organization [facility] Address [address] [place] [address] Care Team Providers Care Poultry Picker Name Role Phone Farhat Acosta MD Primary Care Provider [phone] Reason for Referral * Outpatient Services (Routine) [...] CONTRAST AGENT ECHO COMPLETE Jose Segura MD [facility] Pre-Registration [place] CALL TO MAKE APPOINTMENT ONLY [address] [place] [address] Phone: tel: fax: Referral ID Status Reason Start Date Expiration Date V isits Requested Visits Authorized [id number] Closed F [facility] TO SCHEDULE (SGF) 02/07/2018 03/10/2019 1 1 Encounter Details Date Type Department Care Team (Latest Contact Info) Description 03/05/2018 Ancillary Orders [facility] Cardiac Thoracic Vascular Surg [place] [address] [place] [address] Jose Segura MD NO ADDRESS [...] on file 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 Gender Identity Not on file Sexual Orientation Not on file documented as of this encounter Plan of Treatment Not on file documented as of this encounter Results * ECHOCARDIOGRAM W/ CONTRAST AGENT (03/05/2018 2:19 PM CDT) EJECTION FRACTION INTERFACE SYSTEM 03/05/2018 1:06 PM CDT Narrative INTERFACE SYSTEM - 03/06/2018 6:51 PM CDT [facility] Echocardiography-[address] [address] Transthoracic Echocardiography Patient: Nathen Study ECHO COMPLETE Shauna Gibson ID: Gender: Cookie : 1955 Age: 62 Room: Study 03/05/2018 Pt Outpatient Date: Status: Study 01:06:04 PM CSN #: [id number] Time: Ordering:Jose Segura MD, RPVI Interpreting:Raman Robles MD Trolley Car Overhauler: Stephen Martinez RDCS Indications and History: Persistent [...] PLAX 3.0 cm RVID ED 3.0 cm [facility] Echo Labs are accredited with the [facility] Accreditation Commission - Echocardiography. Prepared and Electronically Authenticated Raman Robles MD Confirmed 03/06/2018 18:50 Procedure Note Raman Robles MD - 03/06/2018 [facility] Echocardiography-[place] [address] [place] [address] [place] [address] Transthoracic Echocardiography Patient: Nathen Study ECHO COMPLETE Shauna Gibson ID: Gender: F : 1955 Age: 62 Room: Study 03/05/2018 Pt Outpatient Date: Status: Study 01:06:04 PM [facility] #: [id number] Time: Ordering:Jose Segura MD, RPVI Interpreting:Raman Robles MD Trolley Car Overhauler: Stephen Martinez [facility] Indications and History: Persistent atrial fibrillation. Summary [...] Aortic valve FS, endocardial, 27 % Peak jos el, S 184.54 cm/sec PLAX Peak gradient, S [...] PLAX 3.0 cm RVID ED 3.0 cm [facility] Echo Labs are accredited with the [facility] Accreditation Commission - Echocardiography. Prepared and Electronically Authenticated Raman Robles MD Confirmed 03/06/2018 18:50 us Jose Segura MD US ORDERABLES Final Result INTERFACE SYSTEM Refer to clinic/hospital department documented in this encounter Visit Diagnoses Diagnosis Persistent atrial fibrillation (CMS/HCC) Atrial fibrillation Stable angina Other and unspecified angina pectoris ASHD (arteriosclerotic heart disease) Coronary atherosclerosis of unspecified type of vessel, [place] or graft Typical atrial flutter (CMS/HCC) Atrial [...] Coronary atherosclerosis of unspecified type of vessel, [place] or graft Typical atrial flutter (CMS/HCC) Atrial [...] illness documented in this encounter Care Teams Poultry Picker Relationship Specialty Start Date End Date Farhat Acosta MD [address] [place] [phone] PCP - General Family Practice 04/08/18 documented as of this encounter
--- OUTSIDE RECORDS SUMMARY | 2025-03-22 15:44 | XMS_ITS | Encounter Summary ---
Author Organization [facility] Address [address] [place] [address] Care Team Providers Care Printing Roller Polisher Name Role Phone Farhat Acosta MD Primary Care Provider [phone] Reason for Referral * Radiology Services (Routine) [...] mellitus Dyslipidemia Respiratory illness Oxygen dependent [place] (myocardial infarction) ALONDRA (obstructive sleep apnea) Benign hypertension with CKD (chronic kidney disease) stage III (CMS/HCC) Referral of patient Type 2 diabetes mellitus with other circulatory complication, with long-term current use of insulin Pre-existing type 2 diabetes mellitus during , antepartum Procedures ECHOCARDIOGRAM W/ CONTRAST AGENT ECHO COMPLETE Jose Segura MD [facility] [address] [place] [address] Phone: tel: fax: Referral ID Status Reason Start Date Expiration Date V isits Requested Visits Authorized [id number] Closed F [facility] TO SCHEDULE (SGF) 05/15/2018 06/15/2019 1 1 TENANCE REPRESENTATIVE Encounter Details Date Type Department Care Team (Latest Contact Info) Description 05/30/2018 Ancillary Orders [facility] Cardiac Thoracic Vascular Surg [place] [address] [facility] [address] [place] [address] Jose Segura MD NO ADDRESS ON FILE Persistent atrial fibrillation ([facility]); Stable angina; ASHD (arteriosclerotic heart disease); Typical atrial flutter ([facility]); Morbid obesity with body mass index of 40.0-49.9 ([facility]); Fibromyalgia; 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 ([facility]); 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 ([facility]); Dyslipidemia; Respiratory illness; Oxygen dependent; [place] (myocardial infarction); ALONDRA (obstructive sleep apnea); Benign hypertension with CKD (chronic kidney disease) stage III ([facility]); Referral of patient; Type 2 diabetes mellitus with other circulatory complication, with long-term current use of insulin ([facility]); Pre-existing type 2 diabetes mellitus during , antepartum Social History Tobacco Use Types Packs/Day Years Used Date Smoking Tobacco: Never Alcohol Use Standard Drinks/Week Comments No 0 (1 standard drink = 0.6 oz pur e alcohol) Comments Unknown Sex and Gender Information Value Date Recorded Sex Assigned at Not on file 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MAINTENANCE REPRESENTATIVE Gender Identity Not on file Sexual Orientation Not on file documented as of this encounter Plan of Treatment Not on file documented as of this encounter Results * ECHOCARDIOGRAM W/ CONTRAST AGENT (05/30/2018 2:35 PM MAINTENANCE REPRESENTATIVE) EJECTION FRACTION INTERFACE SYSTEM 05/30/2018 1:52 PM MAINTENANCE REPRESENTATIVE Narrative INTERFACE SYSTEM - 05/30/2018 5:50 PM MAINTENANCE REPRESENTATIVE [facility] Echocardiography-[place] [address] [facility] [address] [place] [address] Transthoracic Echocardiography Patient: Nathen Study ECHO COMPLETE Shauna Gibson ID: Gender: Cookie : 1955 Age: 62 Room: Study 05/30/2018 Pt Outpatient Date: Status: Study 01:52:05 PM [facility] #: [id number] Time: Ordering:Jose Segura MD, RPVI Interpreting:Yamilka Henley Sap Solution Manager Consultant: Vilma Chen [facility] Indications and History: Persistent atrial fibrillation;Stable angina;ASHD (arteriosclerotic heart disease) ;Typical atrial flutter;Morbid obesity with body mass index of 40.0-49.9; Fibromyalgia;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 Prepared and Electronically Authenticated Yamilka Henley Confirmed 05/30/2018 17:50 Procedure Note Yamilka Henley MD - 05/30/2018 [facility] Echocardiography-[place] [address] [place] [address] Transthoracic Echocardiography Patient: Nathen Study ECHO COMPLETE Shauna Gibson ID: Gender: F : 1955 Age: 62 Room: Study 05/30/2018 Pt Outpatient Date: Status: Study 01:52:05 PM CSN #: [id number] Time: Ordering:Jose Segura MD, RPVI Interpreting:Yamilka Henley Sap Solution Manager Consultant: Vilma Chen [facility] Indications and History: Persistent atrial fibrillation;Stable angina;ASHD (arteriosclerotic heart disease) ;Typical atrial flutter;Morbid obesity with body mass index of 40.0-49.9; Fibromyalgia;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 Prepared and Electronically Authenticated Yamilka Henley Confirmed 05/30/2018 17:50 us Jose Segura MD US ORDERABLES Final Result Performing Organization Address City/State/[facility] Co de Phone Number INTERFACE SYSTEM Refer to clinic/hospital department documented in this encounter Visit Diagnoses Diagnosis Persistent atrial fibrillation (CMS/HCC) Atrial fibrillation Stable angina Other and unspecified angina pectoris ASHD (arteriosclerotic heart disease) Coronary atherosclerosis of unspecified type of vessel, [place] or graft Typical atrial flutter (CMS/HCC) Atrial [...] Oxygen dependent Dependence on supplemental oxygen [place] (myocardial infarction) Old myocardial infarction ALONDRA (obstructive [...] Coronary atherosclerosis of unspecified type of vessel, [place] or graft Typical atrial flutter (CMS/HCC) Atrial [...] Oxygen dependent Dependence on supplemental oxygen [place] (myocardial infarction) Old myocardial infarction ALONDRA (obstructive sleep apnea) Obstructive sleep apnea (adult) (pediatric) Benign hypertension with CKD (chronic kidney disease) stage III ([facility]) Benign hypertensive kidney disease with chronic kidney disease stage I through stage IV, or unspecified Referral of patient Referral of patient without examination or treatment Type 2 diabetes mellitus with other circulatory complication, with long-term current use of insulin Pre-existing type 2 diabetes mellitus during , antepartum documented in this encounter Care Teams Printing Roller Polisher Relationship Specialty Start Date End Date Farhat Acosta MD [address] [place] [phone] PCP - General Family Practice 04/08/18 documented as of this encounter
--- OUTSIDE RECORDS SUMMARY | 2025-03-22 15:44 | XMS_ITS | Clinical Summary ---
Author Organization [facility] Address [address] [place] [address] Care Team Providers Care Route Cdl Driver Name Role Phone Farhat Acosta MD Primary Care Provider [phone] Allergies Active Allergy Reactions Criticality Noted Date Comments Amiodarone Renal Dysfunctions Medium 07/31/2018 Erythromycin Rash Low 04/26/2009 Meperidine (Pf) Nausea and Vomiting Low 04/26/2009 Morphine Unknown 04/24/2009 Oxycodone Gfv-[id number]-Lgo Nausea and Vomiting Low 04/26/2009 Oxycodone-Acetaminophen Nausea and Vomiting Low 02/2009 Penicillins Rash Low 04/26/2009 Shellfish Containing Products Swelling Low 2008 Medications levothyroxine 50 mcg tablet 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 Active pregabalin (LYRICA) 150 mg Capsule Take [...] chloride (SALINE NASAL MIST) 0.65 % Aerosol, [place]mira Administer 2 Sprays in each nostril PRN for Allergies. Active Sodium Chloride-Aloe Vera (AYR SALINE GEL) [place], Non-Aerosol Administer 1 [place] in each nostril 1 time daily as [...] (chronic kidney disease) stage III 01/23/2018 [facility] (myocardial infarction) 01/23/2018 Dyslipidemia 01/23/2018 Fibromyalgia 01/23/2018 [...] on file 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LEGAL CASHIER Gender Identity Not on file Sexual Orientation Not on file Last Filed Vital Signs Vital Sign Reading Time Taken Comments Blood Pressure 130/72 09/26/2018 11:17 AM CDT Pulse 84 09/26/2018 11:17 AM CDT Temperature 35.7 C (96.2 F) 08/05/2018 10:49 AM LEGAL CASHIER Respiratory Rate 18 08/05/2018 10:49 AM LEGAL CASHIER Oxygen Saturation 98% 08/05/2018 10:49 AM LEGAL CASHIER Inhaled Oxygen Concentration - - Weight 138.8 [...] Comments HEMOGLOBIN A1C Routine 07/31/2018 11:08 AM LEGAL CASHIER Persistent atrial fibrillation (CMS/HCC) Stable angina ASHD (arteriosclerotic heart disease) Typical atrial flutter (CMS/HCC) Morbid obesity with body mass index of 40.0-49.9 (CMS/HCC) Fibromyalgia 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) LIPID PANEL Routine 04/24/2009 5:43 AM LEGAL CASHIER from Last 3 Months or Most Recently Relevant to Health Maintenance Results * (ABNORMAL) HEMOGLOBIN A1C (07/31/2018 11:08 AM LEGAL CASHIER) HEMOGLOBIN A1C 9.3(H) 4.0 - 6.0 % 07/31/2018 2:04 PM LEGAL CASHIER [facility] EST. AVG GLUCOSE, A1C 220 mg/dL 07/31/2018 2:04 PM [facility] Blood Venipuncture / Unknown 07/31/2018 11:08 AM LEGAL CASHIER 07/31/2018 12:23 PM LEGAL CASHIER Narrative [facility] - 07/31/2018 2:04 PM LEGAL CASHIER HGB A1C INTERPRETATION NORMAL: <5.7% PRE-DIABETES: 5.7 - 6.4% DIABETES: 6.5% OR GREATER us Jose Segura MD CHEMISTRY ORDERABLES F inal Result [facility] CLIA# [id number] [address] [place] [address] * (ABNORMAL) LIPID PANEL (04/24/2009 5:43 AM LEGAL CASHIER) CHOLESTEROL 196 0 - 200 mg/dL [facility] TRIGLYCERIDE 156(H) 0 - 150 mg/dL [facility] HDL 44 40 - 60 mg/dL [facility] LDL CALCULATED 121(H) 0 - 100 mg/dL [facility] Comment: Calculated LDL Reference: <100 Optimal 100-129 Near Optimal 130-159 Borderline High >160 High Risk CALCULATED TOTAL CHOLESTEROL TO HDL RATIO 4.45(H) 3.27 - 4.44 [facility] Blood specimen (specimen) 04/24/2009 5:43 AM LEGAL CASHIER 04/24/2009 5:43 AM LEGAL CASHIER Narrative INTERFACE SYSTEM - 04/24/2009 8:37 AM LEGAL CASHIER FASTING Sander Segura MD CHEMISTRY ORDER MITCHELL Edited INTERFACE SYSTEM Refer to clinic/hospital department [facility] CLIA# [id number] [address] [place] [address] from Last 3 Months or Most Recently Relevant to Health Maintenance Insurance [place] Member Subscriber Plan / Payer (Ef fective 2017-Present) Name:Shauna Sena Relation to Subscriber:Self Name:Nathen Shauna L Payer ID:[id number] Group ID:Not on file Type:Medicaid Address: [address] Advance Directives For more information, please contact: [phone] * Full Code (Latest Code Status on File) Date Activated Date Inactivated Comments 08/01/2018 4:26 PM 08/05/2018 5:45 PM * Full Code Date Activated Date Inactivated Comments 08/01/2018 5:09 AM 08/01/2018 4:25 PM * Full Code Date Activated Date Inactivated Comments 04/26/2009 3:35 PM 04/28/2009 2:07 PM * Full Code Date Activated Date Inactivated Comments 04/25/2009 9:38 AM 04/26/2009 3:35 PM Care Teams Route Cdl Driver Relationship Specialty Start Date End Date Farhat Acosta MD [address] [place] [id number] PCP - General Family Practice 04/08/18
[2025-03-22 15:58] VITALS: BP 160/94
[2025-03-22] MEDS: tetracaine 0.5% Op Soln 4 mL Btl 1 DROP EYE-RIGHT (15:59)
[2025-03-22] MEDS: HYDROcodone-acetaminophen 7.5-325 mg Tablet 1 TAB PO (15:59)
--- NOTE | 2025-03-22 16:16 | W.ED.HA ---
HPI - Headache General: Chief Complaint: Headache Stated Complaint: headache Time Seen by Provider: 03/22/25 15:43 Source: patient Mode of arrival: ambulatory Limitations: no limitations History of Present Illness: 69-year-old female who states she has been having a right sided headache since Sunday its worsened today. States that pain goes from her forehead down to her eye and it is a sharp burning pain. States she has had some swelling to her eyelid and right eye pain as well. Denies any vision changes denies any thunderclap headache denies any slurred speech or weakness. States she is also having some pain to her right ear Related Data Home Medications ?Medication ?Instructions ?Recorded ?Confirmed acetaminophen 500 mg tablet 1,000 mg PO Q6H PRN Pain 05/11/22 03/22/25 hydralazine 25 mg tablet 25 mg PO TID PRN high bp 06/05/24 03/22/25 budesonide 0.5 mg/2 mL suspension 0.5 mg inhalation BID PRN COPD 02/26/25 03/22/25 for nebulization levothyroxine 50 mcg tablet 50 mcg PO QAM 02/26/25 03/22/25 insulin glargine 100 unit/mL (3 60 unit SUBCUT BID 03/12/25 03/22/25 mL) subcutaneous pen (Lantus Solostar U-100 Insulin) furosemide 40 mg tablet 40 mg PO BID edema 03/22/25 03/22/25 Previous Rx's ?Medication ?Instructions ?Recorded cyanocobalamin (vitamin B-12) 1,000 mcg PO DAILY #30 tabs 02/05/22 1,000 mcg tablet (Vitamin B-12) nitroglycerin 0.4 mg sublingual 0.4 mg sublingual Q5M PRN Chest 05/24/23 tablet (Nitrostat) Pain #30 tabs cholecalciferol (vitamin D3) 50 50 mcg PO DAILY #30 caps 10/30/23 mcg (2,000 unit) capsule Manual wheelchair #1 ea 12/05/23 clopidogrel 75 mg tablet 75 mg PO DAILY #90 tabs 03/27/24 flash glucose scanning reader #2 ea 04/28/24 (FreeStyle Lou 14 Day [place]) flash glucose sensor (FreeStyle #2 ea 04/28/24 Lou 14 Day Sensor kit) insulin syringe-needle U-100 1 mL #100 ea 08/26/24 29 gauge x 1/2 isosorbide mononitrate 30 mg 30 mg PO DAILY #30 tabs 09/16/24 tablet,extended release 24 hr spironolactone 25 mg tablet 25 mg PO DAILY #30 tabs 09/19/24 allopurinol 300 mg tablet 300 mg PO DAILY #90 tabs 11/19/24 potassium chloride 20 mEq 20 meq PO BID #180 tabs 11/19/24 tablet,extended release(part/cryst) pregabalin 50 mg capsule 50 mg PO BID #60 caps 11/19/24 pen needle, diabetic 31 gauge x #100 ea 01/12/2510/31 (TechLITE Pen Needle) lorazepam 1 mg tablet 1 mg PO BID PRN anxiety #60 tabs 01/26/25 buspirone 10 mg tablet 10 mg PO TID #90 tabs 02/05/25 dulaglutide 1.5 mg/0.5 mL 1.5 mg (0.5 mL) SUBCUT Q7D #2 mL 02/05/25 subcutaneous pen injector ferrous sulfate 325 mg (65 mg 325 mg PO BID #60 tabs 02/05/25 iron) tablet apixaban 5 mg tablet 5 mg PO BID #180 tabs 03/04/25 aspirin 81 mg tablet,delayed 81 mg PO DAILY 30 days #30 tabs 03/04/25 release atorvastatin 40 mg tablet (Lipitor) 40 mg PO DAILY 30 days #30 tabs 03/04/25 insulin aspart U-100 100 unit/mL See Rx Instructions .Route 03/04/25 (3 mL) subcutaneous pen (Novolog .COMPLEX #15 mL FlexPen U-100 Insulin aspart) metoprolol tartrate 25 mg tablet 25 mg PO BID@0900,2100 30 days #30 03/04/25 tabs vortioxetine 20 mg tablet 20 mg PO DAILY #30 tabs 03/12/25 ondansetron HCl 4 mg tablet 4 mg PO Q8H PRN nausea and 03/20/25 vomiting #30 tabs erythromycin 5 mg/gram (0.5 %) eye 1 applic ophthalmic (eye) QID 7 03/22/25 ointment (3.5 gram tube) days #3.5 grams hydrocodone 5 mg-acetaminophen 325 1 tab PO Q6H PRN pain #14 tabs 03/22/25 mg tablet valacyclovir 1 gram tablet 1,000 mg PO Q8H 7 days #21 tabs 03/22/25 Allergies Allergy/AdvReac Type Severity Reaction Status Date / Time morphine Allergy Severe Quit Verified 03/12/25 10:45 breathing amiodarone Allergy ALGY-Anaphy Verified 03/12/25 10:45 laxis sulfamethoxazole (From Allergy ALGY-Rash Verified 03/12/25 10:45 Bactrim) trimethoprim (From Bactrim) Allergy ALGY-Rash Verified 03/12/25 10:45 shellfish derived AdvReac Severe Hives & Verified 03/12/25 10:45 throat swells meperidine (From Demerol) AdvReac Intermediate Made N & V Verified 03/12/25 10:45 Penicillins AdvReac Intermediate RAsh Verified 03/12/25 10:45 Review of Systems Neuro: Reports: headache(s) [facility] ED PFSH: Medical History (Updated 03/22/25 @ 16:19 by Nadeem Fontaine MD) CAD (coronary artery disease) LVEF 60% Stents x 3 -in 02/2023, stent OM 02/2025 SOB (shortness of breath) Diabetes type 2, uncontrolled Atherosclerotic heart disease of [place] coronary artery with unstable angina pectoris CKD (chronic kidney disease) CHF (congestive heart failure) Acute hip pain Fall Weakness COPD with acute exacerbation Acute on chronic hypoxic respiratory failure Pneumonia CHF exacerbation Urinary retention Abscess Gait instability Positive cardiac stress test Fluid overload Muscle pain Skin rash Diarrhea Bronchospasm Hyperglycemia Chronic pain Diarrhea Generalized anxiety disorder Type 2 diabetes mellitus MRSA (methicillin resistant staph aureus) culture positive Influenza A Community acquired pneumonia Vitamin B12 deficiency Polypharmacy Gout Hyperlipidemia Hypothyroidism Fibromyalgia Depression Chronic respiratory failure Amiodarone pulmonary toxicity Atrial fibrillation Hypercholesteremia HTN (hypertension) Major depressive disorder, recurrent severe without psychotic features Chronic pain She reports taking pain medicines and muscle relaxers for a recent back injury; she has chronic left leg pain. Surgical History (Updated 03/12/25 @ 17:03 by Farhat Acosta MD) History of incision and drainage Right breast abscess History of coronary artery stent placement Stent x 2 at [facility] - 08/2024 - Total of 11 stents as of 03/12/25 H/O left knee surgery Hx of cholecystectomy History of hysterectomy partial H/O section History of back surgery H/O eye surgery History of carpal tunnel release H/O cardiac radiofrequency ablation Family History Mother Cancer breast Stroke Brother Heart disease Asthma Cancer prostate Sister Heart disease Social History Smoking and tobacco/nicotine status: never used tobacco/nicotine Alcohol intake: never Substance/Drug Use: never Housing: Other Details: Currently with her family Physical Exam Const: COMMON NORMALS: no acute distress, patient oriented x3 and healthy appearing HENMT: COMMON NORMALS: normocephalic, atraumatic, external ears normal and TM's normal bilaterally HEAD & SCALP: normocephalic and atraumatic EXTERNAL EAR: Yes external ears normal TYMPANIC MEMBRANE: TM's normal bilaterally OTHER: No mastoid tenderness no tenderness over temporal artery Eye: COMMON NORMALS: Equal, round and reactive pupils present and EOMs intact bilaterally PUPIL: Yes Equal, round and reactive pupils present OTHER: Erythema noted to right eye under fluorescein exam no dendrites ulcers or abrasions intraocular pressure of the right eye was 22 Neck/C-Spine: COMMON NORMALS: full ROM and supple Chest: COMMONS NORMALS: normal inspection of the chest and normal palpation of entire chest wall Resp: COMMON NORMALS: normal respiratory effort, No retractions, No use of accessory muscles and clear to auscultation bilaterally AUSCULTATION: clear to auscultation bilaterally Cardio: COMMON NORMALS: regular rate, regular rhythm and No murmurs present (Cardio) RATE: regular rate RHYTHM: regular rhythm Extremity: COMMON NORMALS: normal to inspection and full ROM Neuro: COMMON NORMALS: patient oriented x3, moves all extremities and no focal motor deficits Psych: COMMON NORMALS: mental status grossly normal, Normal thought process present and cooperative THOUGHT PROCESS: Normal thought process present Skin: COMMON NORMALS: no rashes or lesions noted and no wounds GENERAL SKIN EXAM: no rashes or lesions noted Course Vital Signs: Vital signs: Vital Signs Temperature 98.7 F 03/22/25 15:38 Pulse Rate 61 03/22/25 16:42 Respiratory Rate 17 03/22/25 15:38 Blood Pressure 160/75 03/22/25 16:42 Pulse Oximetry 99 03/22/25 16:42 Oxygen Delivery Me thod Nasal Cannula 03/22/25 15:38 Oxygen Flow Rate 2 10/05/25 15:38 MDM - Headache Medical Decision Making Patient presents with right sided headache and eye pain she has a slight rash and redness to the right forehead this is likely shingles. She has no signs of temporal arteritis no signs of mastoiditis she has no signs of subarachnoid hemorrhage or meningitis. I did stain her eye I did not see any signs of dendrites to check her intraocular pressure and it was 22 she has no signs of acute angle glaucoma. I did speak to Orlando Webster of the [facility] he stated that they will see patient tomorrow at 8 AM. Will start her on acyclovir along with erythromycin ointment and hydrocodone. I informed her she is to follow-up with ophthalmology tomorrow at 8 AM she understands and agrees to plan. Medical Records I reviewed the patient's medical records. No radiology studies performed this visit Discharge Plan Discharge Patient Disposition: Home Clinical Impression: Headache, Acute right eye pain Condition: Stable Prescriptions: New hydrocodone-acetaminophen 5-325 mg tablet 1 tab PO Q6H PRN (Reason: pain) Qty: 14 0RF erythromycin 5 mg/gram (0.5 %) ointment 1 applic ophthalmic (eye) QID 7 Days Qty: 3.5 0RF valacyclovir 1 gram tablet 1,000 mg PO Q8H 7 Days Qty: 21 0RF No Action (DME) Manual wheelchair See Rx Instructions .Route .MEDSUPPLY Qty: 1 0RF Rx Instructions: As directed insulin glargine [Lantus Solostar U-100 Insulin] 100 unit/mL (3 mL) insulin pen 60 unit SUBCUT BID vortioxetine 20 mg tablet 20 mg PO DAILY Qty: 30 3RF nitroglycerin [Nitrostat] 0.4 mg tablet, sublingual 0.4 mg SUBLINGUAL Q5M PRN (Reason: Chest Pain) Qty: 30 6RF Rx Instructions: do not exceed 3 doses per episode isosorbide mononitrate 30 mg tablet extended release 24 hr 30 mg PO DAILY Qty: 30 5RF cyanocobalamin (vitamin B-12) [Vitamin B-12] 1,000 mcg tablet 1,000 mcg PO DAILY Qty: 30 6RF cholecalciferol (vitamin D3) 50 mcg (2,000 unit) capsule 50 mcg PO DAILY Qty: 30 6RF clopidogrel 75 mg tablet 75 mg PO DAILY Qty: 90 3RF (DME) FreeStyle Lou 14 Day [place] Misc See Rx Instructions .Route Qty: 2 12RF Rx Instructions: As directed (DME) FreeStyle Lou 14 Day Sensor Kit See Rx Instructions .Route Qty: 2 11RF Rx Instructions: As directed (DME) insulin syringe-needle U-100 1 mL 29 gauge x 1/2 syringe See Rx Instructions .Route Qty: 100 6RF Rx Instructions: As directed to inject insulin 2-3x/day spironolactone 25 mg tablet 25 mg PO DAILY Qty: 30 6RF allopurinol 300 mg tablet 300 mg PO DAILY Qty: 90 3RF potassium chloride 20 mEq tablet,ER particles/crystals 20 meq PO BID Qty: 180 3RF pregabalin 50 mg capsule 50 mg PO BID Qty: 60 5RF (DME) pen needle, diabetic [TechLITE Pen Needle] 31 gauge x 5/16 needle See Rx Instructions .ROUTE .MEDSUPPLY Qty: 100 6RF Rx Instructions: As directed lorazepam 1 mg tablet 1 mg PO BID PRN (Reason: anxiety) Qty: 60 2RF dulaglutide 1.5 mg/0.5 mL pen injector 1.5 mg SUBCUT Q7D Qty: 2 3RF Rx Instructions: Sunday' ferrous sulfate 325 mg (65 mg iron) tablet 325 mg PO BID Qty: 60 3RF buspirone 10 mg tablet 10 mg PO TID Qty: 90 6RF ondansetron HCl 4 mg tablet 4 mg PO Q8H PRN (Reason: nausea and vomiting) Qty: 30 2RF acetaminophen 500 mg Tablet 1,000 mg PO Q6H PRN (Reason: Pain) hydralazine 25 mg tablet 25 mg PO TID PRN (Reason: high bp) furosemide 40 mg tablet 40 mg PO BID levothyroxine 50 mcg tablet 50 mcg PO QAM budesonide 0.5 mg/2 mL suspension for nebulization 0.5 mg inhalation BID PRN (Reason: COPD) aspirin 81 mg Tablet,Delayed Release (Dr/Ec) 81 mg PO DAILY 30 Days Qty: 30 0RF metoprolol tartrate 25 mg Tablet 25 mg PO BID@0900,2100 30 Days Qty: 30 0RF atorvastatin [Lipitor] 40 mg tablet 40 mg PO DAILY 30 Days Qty: 30 3RF insulin aspart U-100 [Novolog FlexPen U-100 Insulin] 100 unit/mL (3 mL) insulin pen See Rx Instructions .ROUTE .COMPLEX Qty: 15 0RF Rx Instructions: Inject, subcut, 3 times daily, after meals, based on low-dose sliding scale apixaban 5 mg tablet 5 mg PO BID Qty: 180 3RF Discharge Orders: Discharge ED (Routine); Ordered 03/22/25 Ordered By: Nadeem Fontaine Referrals: [facility] [Outside] - 1-3 days Farhat Acsota MD [Primary Care Provider, Family Practice] Discharge Diet: Advance as tolerated Discharge Activity: Resume usual activity Patient Instructions: Acute Headache (ED), Eye Pain (ED), Opioid Safety Print Language: Uzbek Coding Level of Care Code ED [facility]
--- NOTE | 2025-03-22 16:25 | PC.PHAR ---
last discharge 03/04/25 Dilitiazem cd 120mg er and Metoprolol Tartrate 100mg were stopped. Change Furosemide 40mg from 120mg tid to 40mg bid, Lantus from 90mg to 30mg bid. New rx's Asa 81mg daily, Novolog Flexpen tid per sliding scale, and Metoprolol Tartrate 25mg bid.
[2025-03-22 16:42] VITALS: BP 160/75; PULSE 61; O2SAT 99
--- OUTSIDE RECORDS SUMMARY | 2025-05-03 19:00 | XMS_ITS | Clinical Summary ---
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/UNSP CHR KDNY Active 06-18 00:00: 00 HEART FAILURE, UNSPECIFIED Active 06-18 00:00: 00 TYPE 2 DIABETES MELLITUS W DIABETIC CHRONIC KIDNEY DISEASE Active 06-18 00:00: 00 CHRONIC KIDNEY DISEASE, STAGE 4 (SEVERE) Active 06-18 00:00: 00 SICK SINUS SYNDROME Active 06-18 00:00: 00 EMPHYSEMA, UNSPECIFIED Active 06-18 00:00: 00 CHRONIC RESPIRATORY FAILURE WITH HYPOXIA Active 06-18 00:00: 00 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 Active 06-18 00:00: 00 GENERALIZED ANXIETY DISORDER Active 06-18 00:00: 00 HYPOTHYROIDI SM, UNSPECIFIED Active 06-18 00:00: 00 DEFICIENCY OF OTHER SPECIFIED B GROUP VITAMINS Active 06-18 00:00: 00 PURE HYPERCHOLEST EROLEMIA, UNSPECIFIED Active - 00:00: 00 OBSTRUCTIVE SLEEP APNEA (ADULT) (PEDIATRIC) Active - 00:00: 00 FIBROMYALGIA Active 06-18 00:00: 00 OLD MYOCARDIAL INFARCTION Active 06-18 00:00: 00 OBESITY, UNSPECIFIED Active 06-18 00:00: 00 BODY MASS INDEX [BMI]40.0-44 .9, ADULT Active 06-18 00:00: 00 DEPENDENCE ON SUPPLEMENTAL OXYGEN Active 06-18 00:00: 00 SENIOR LIVING (CURRENT) USE OF ASPIRIN Active 06-18 00:00: 00 DRIVE AWAY DRIVER (CURRENT) USE OF ANTICOAGULAN TS Active 06-18 00:00: 00 DRIVE AWAY DRIVER (CURRENT) USE OF ANTITHROMBOT ICS/ANTIPLAT ELETS Active 06-18 00:00: 00 LNG TRM (CRNT) USE INJECTABLE NON-INSULIN ANTIDIABETIC DRUGS Active 06-18 00:00: 00 PRESENCE OF CORONARY ANGIOPLASTY IMPLANT AND GRAFT Active 06-18 00:00: 00 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 Ordering Clinician Indication Dosage Frequency Signature (SIG) Comments Components buspirone 10 mg tablet 02-03 00:00: 00 02-11 00:00 :00 No [id number] Per instruc tions Per instructio ns (route: oral) Med Classific ation: Central Nervous System Agents Breo Ellipta 200 mcg-25 mcg/dose powder for inhalation 01-31 00:00: 00 06-01 23:59 :00 No [id number] 1 inhalat ion DAILY 1 inhalation DAILY (route: inhalation ) Med Classific ation: Respirato ry Therapy Agents bumetanide 2 mg tablet 01-31 00:00: 06-01 23:59 :00 No [id number] 2 mg DAILY 2 mg DAILY (route: oral) Med Classific ation: Cardiovas cular Therapy Agents methylpredn isolone 4 mg tablets in a dose pack 01-31 00:00: 00 02-11 00:00 :00 No [id number] Per instruc tions Per instructio ns (route: oral) Med Classific ation: Endocrine Lantus U-100 Insulin 100 unit/mL subcutaneou s solution 01-29 00:00: 00 06-01 23:59 :00 No [id number] 90 unit 2 TIMES DAILY 90 unit 2 TIMES DAILY (route: subcutaneo us) Med Classific ation: Endocrine allopurinol 300 mg tablet 01-27 00:00: 00 06-01 23:59 :00 No [id number] 1 tablet DAILY 1 tablet DAILY (route: oral) Med Classific ation: Gout and Hyperuric emia Therapy diltiazem ER 120 mg tablet,exte nded release 24 hr 01-27 00:00: 00 06-01 23:59 :00 No [id number] 1 tablet DAILY 1 tablet DAILY (route: oral) Med Classific ation: Cardiovas cular Therapy Agents Eliquis 5 mg tablet 01-27 00:00: 00 06-01 23:59 :00 No [id number] 1 tablet 2 TIMES DAILY 1 tablet 2 TIMES DAILY (route: oral) Med Classific ation: Hematolog ical Agents furosemide 40 mg tablet 01-27 00:00: 00 02-11 00:00 :00 No [id number] Per instruc tions TWICE DAILY Per instructio ns TWICE DAILY (route: oral) Med Classific ation: Cardiovas cular Therapy Agents levothyroxi ne 50 mcg tablet 01-27 00:00: 00 06-01 23:59 :00 No [id number] 1 tablet DAILY 1 tablet DAILY (route: oral) Med Classific ation: Endocrine potassium chloride ER 20 mEq tablet,exte nded release(par t/cryst) 01-27 00:00: 00 06-01 23:59 :00 No [id number] 1 tablet 2 TIMES DAILY 1 tablet 2 TIMES DAILY (route: oral) Med Classific ation: Electroly billie CharlesN [place] Products simvastatin 10 mg tablet 01-27 00:00: 00 02-11 00:00 :00 No [id number] Per instruc tions EVERY Per instructio ns EVERY (route: oral) Med Classific ation: Cardiovas cular Therapy Agents acetazolami de 250 mg tablet 01-21 00:00: 00 02-11 00:00 :00 No [id number] Per instruc tions DAILY Per instructio ns DAILY (route: oral) Med Classific ation: Cardiovas cular Therapy Agents lorazepam 1 mg tablet 01-17 00:00: 00 06-01 23:59 :00 No [id number] 1 tablet 2 TIMES DAILY 1 tablet 2 TIMES DAILY (route: oral) Med Classific ation: Central Nervous System Agents metoprolol tartrate 100 mg tablet 01-13 00:00: 00 06-01 23:59 :00 No [id number] 1 tablet 2 TIMES DAILY 1 tablet 2 TIMES DAILY (route: oral) Med Classific ation: Cardiovas cular Therapy Agents Ozempic 0.25 mg or 0.5 mg (2 mg/3 mL) subcutaneou s pen injector 01-10 00:00: 00 06-01 23:59 :00 No [id number] Per instruc tions ONCE EVERY SEVEN DAYS Per instructio ns ONCE EVERY SEVEN DAYS (route: subcutaneo us) Med Classific ation: Endocrine buspirone 10 mg tablet 01-09 00:00: 00 06-01 23:59 :00 No [id number] 1 tablet 3 TIMES DAILY 1 tablet 3 TIMES DAILY (route: oral) Med Classific ation: Central Nervous System Agents Trintellix 10 mg tablet 01-09 00:00: 00 06-01 23:59 :00 No [id number] 1 tablet DAILY 1 tablet DAILY (route: oral) Med Classific ation: Central Nervous System Agents pregabalin 50 mg capsule 01-06 00:00: 00 06-01 23:59 :00 No [id number] 1 capsule 2 TIMES DAILY 1 capsule 2 TIMES DAILY (route: oral) Med Classific ation: Central Nervous System Agents acetaminoph en 500 mg tablet 02-11 00:00: 00 06-01 23:59 :00 No [id number] 2 tablet EVERY 6 HOURS 2 tablet EVERY 6 HOURS (route: oral) Med Classific ation: Analgesic , Anti-infl ammatory or Antipyret ic cholecalcif frandy (vitamin D3) 50 mcg (2,000 unit) capsule 02-11 00:00: 00 06-01 23:59 :00 No [id number] 1 capsule DAILY 1 capsule DAILY (route: oral) Med Classific ation: Electroly te Balance-N utritiona l Products clopidogrel 75 mg tablet 02-11 00:00: 00 06-01 23:59 :00 No [id number] 1 tablet DAILY 1 tablet DAILY (route: oral) Med Classific ation: Hematolog ical Agents cyanocobala min (vit B-12) 1,000 mcg tablet 02-11 00:00: 00 06-01 23:59 :00 No [id number] 1 tablet DAILY 1 tablet DAILY (route: oral) Med Classific ation: Electroly te Balance-N utritiona l Products hydralazine 50 mg tablet 02-11 00:00: 00 06-01 23:59 :00 No [id number] 1 tablet 3 TIMES DAILY 1 tablet 3 TIMES DAILY (route: oral) Med Classific ation: Cardiovas cular Therapy Agents hydrocodone 5 mg-acetamin ophen 325 mg tablet 02-11 00:00: 00 06-01 23:59 :00 No [id number] 1 tablet EVERY 6 HOURS 1 tablet EVERY 6 HOURS (route: oral) Med Classific ation: Analgesic , Anti-infl ammatory or Antipyret ic ipratropium bromide 0.02 % solution for inhalation 02-11 00:00: 06-01 23:59 :00 No [id number] 0.5 mg EVERY 6 HOURS 0.5 mg EVERY 6 HOURS (route: inhalation ) Med Classific ation: Respirato ry Therapy Agents ketoconazol e 2 % shampoo 02-11 00:00: 00 06-01 23:59 :00 No [id number] 1 mL DIRECTED 1 mL DIRECTED (route: topical) Med Classific ation: Dermatolo gical ketoconazol e 2 % topical cream 02-11 00:00: 00 06-01 23:59 :00 No [id number] 1 inch 2 TIMES DAILY 1 inch 2 TIMES DAILY (route: topical) Med Classific ation: Dermatolo gical levalbutero l 0.63 mg/3 mL solution for nebulizatio n 02-11 00:00: 00 06-01 23:59 :00 No [id number] 3 mL EVERY 6 HOURS 3 mL EVERY 6 HOURS (route: inhalation ) Med Classific ation: Respirato ry Therapy Agents levofloxaci n 750 mg tablet 02-11 00:00: 00 02-14 23:59 :00 No [id number] 1 tablet DAILY 1 tablet DAILY (route: oral) Med Classific ation: Anti-Infe ctive Agents Medrol 4 mg tablet 02-11 00:00: 00 02-19 23:59 :00 No [id number] Per instruc tions DAILY Per instructio ns DAILY (route: oral) Med Classific ation: Endocrine metolazone 10 mg tablet 02-11 00:00: 00 06-01 23:59 :00 No [id number] 1 tablet DAILY 1 tablet DAILY (route: oral) Med Classific ation: Cardiovas cular Therapy Agents nitroglycer in 0.4 mg sublingual tablet 02-11 00:00: 00 06-01 23:59 :00 No [id number] 1 tablet DIRECTED 1 tablet DIRECTED (route: sublingual ) Med Classific ation: Cardiovas cular Therapy Agents ondansetron 4 mg disintegrat ing tablet 02-11 00:00: 00 06-01 23:59 :00 No [id number] 1 tablet EVERY 8 HOURS 1 tablet EVERY 8 HOURS (route: oral) Med Classific ation: Gastroint estinal Therapy Agents Robitussin ER 30 mg/5 mL oral suspension, extended release 02-11 00:00: 00 06-01 23:59 :00 No [id number] 5 mL EVERY 12 HOURS 5 mL EVERY 12 HOURS (route: oral) Med Classific ation: Respirato ry Therapy Agents simvastatin 40 mg tablet 02-11 00:00: 00 06-01 23:59 :00 No [id number] 1 tablet BEDTIME 1 tablet BEDTIME (route: oral) Med Classific ation: Cardiovas cular Therapy Agents triamcinolo ne acetonide 0.1 % topical ointment 02-11 00:00: 00 06-01 23:59 :00 No [id number] 1 inch 2 TIMES DAILY 1 inch 2 TIMES DAILY (route: topical) Med Classific ation: Dermatolo gical oxygen gas for inhalation 02-14 00:00: 00 06-01 23:59 :00 No [id number] 3 Liter O2 - CONTINUOUS 3 Liter O2 - CONTINUOUS (route: inhalation ) Med Classific ation: Medical Supplies and Durable Medical Equipment (DME) fluconazole 200 mg tablet 02-20 00:00: 00 02-25 23:59 :00 No [id number] 1 tablet EVERY 72 HOURS 1 tablet EVERY 72 HOURS (route: oral) Med Classific ation: Anti-Infe ctive Agents Nystop 100,000 unit/gram topical powder 02-20 00:00: 00 06-01 23:59 :00 No [id number] 1 unit 2 TIMES DAILY 1 unit 2 TIMES DAILY (route: topical) Med Classific ation: Dermatolo gical acetaminoph en 500 mg tablet 03-06 00:00: 00 Yes [id number] 2 tablet EVERY 6 HOURS 2 tablet EVERY 6 HOURS (route: oral) Med Classific ation: Analgesic , Anti-infl ammatory or Antipyret ic allopurinol 300 mg tablet 03-06 00:00: 00 Yes [id number] 1 tablet DAILY 1 tablet DAILY (route: oral) Med Classific ation: Gout and Hyperuric emia Therapy aspirin 81 mg tablet 03-06 00:00: 00 Yes [id number] 1 tablet DAILY 1 tablet DAILY (route: oral) Med Classific ation: Hematolog ical Agents atorvastati n 40 mg tablet 03-06 00:00: 00 Yes [id number] 1 tablet DAILY 1 tablet DAILY (route: oral) Med Classific ation: Cardiovas cular Therapy Agents budesonide 0.5 mg/2 mL suspension for nebulizatio n 03-06 00:00: 00 Yes [id number] 2 mL 2 TIMES DAILY 2 mL 2 TIMES DAILY (route: inhalation ) Med Classific ation: Respirato ry Therapy Agents buspirone 10 mg tablet 03-06 00:00: 00 Yes [id number] 1 tablet 3 TIMES DAILY 1 tablet 3 TIMES DAILY (route: oral) Med Classific ation: Central Nervous System Agents cholecalcif frandy (vitamin D3) 50 mcg (2,000 unit) tablet 03-06 00:00: 00 Yes [id number] 1 tablet DAILY 1 tablet DAILY (route: oral) Med Classific ation: Electroly te Balance-N utritiona l Products clopidogrel 75 mg tablet 03-06 00:00: 00 Yes [id number] 1 tablet DAILY 1 tablet DAILY (route: oral) Med Classific ation: Hematolog ical Agents cyanocobala min (vit B-12) 1,000 mcg tablet 03-06 00:00: 00 Yes [id number] 1 tablet DAILY 1 tablet DAILY (route: oral) Med Classific ation: Electroly te Balance-N utritiona l Products Eliquis 5 mg tablet 03-06 00:00: 00 Yes [id number] 1 tablet 2 TIMES DAILY 1 tablet 2 TIMES DAILY (route: oral) Med Classific ation: Hematolog ical Agents ferrous sulfate 325 mg (65 mg iron) tablet 03-06 00:00: 00 Yes [id number] 1 tablet 2 TIMES DAILY 1 tablet 2 TIMES DAILY (route: oral) Med Classific ation: Electroly te Balance-N utritiona l Products furosemide 40 mg tablet 03-06 00:00: 00 Yes [id number] 1 tablet 2 TIMES DAILY 1 tablet 2 TIMES DAILY (route: oral) Med Classific ation: Cardiovas cular Therapy Agents hydralazine 25 mg tablet 03-06 00:00: 00 Yes [id number] 1 tablet 3 TIMES DAILY 1 tablet 3 TIMES DAILY (route: oral) Med Classific ation: Cardiovas cular Therapy Agents isosorbide mononitrate ER 30 mg tablet,exte nded release 24 hr 03-06 00:00: 00 Yes [id number] 1 tablet DAILY 1 tablet DAILY (route: oral) Med Classific ation: Cardiovas cular Therapy Agents Lantus Solostar U-100 Insulin 100 unit/mL (3 mL) subcutaneou s pen 03-06 00:00: 00 Yes [id number] 30 unit 2 TIMES DAILY 30 unit 2 TIMES DAILY (route: subcutaneo us) Med Classific ation: Endocrine levothyroxi ne 50 mcg tablet 03-06 00:00: 00 Yes [id number] 1 tablet DAILY 1 tablet DAILY (route: oral) Med Classific ation: Endocrine lorazepam 1 mg tablet 03-06 00:00: 00 Yes [id number] 1 tablet 2 TIMES DAILY 1 tablet 2 TIMES DAILY (route: oral) Med Classific ation: Central Nervous System Agents metoprolol tartrate 25 mg tablet 03-06 00:00: 00 Yes [id number] 1 tablet 2 TIMES DAILY 1 tablet 2 TIMES DAILY (route: oral) Med Classific ation: Cardiovas cular Therapy Agents nitroglycer in 0.4 mg sublingual tablet 03-06 00:00: 00 Yes [id number] 1 tablet DIRECTED 1 tablet DIRECTED (route: sublingual ) Med Classific ation: Cardiovas cular Therapy Agents Novolin N FlexPen 100 unit/mL (3 mL) subcutaneou s insulin pen 03-06 00:00: 00 Yes [id number] Per instruc tions DIRECTED Per instructio ns DIRECTED (route: subcutaneo us) Med Classific ation: Endocrine potassium chloride ER 20 mEq tablet,exte nded release 03-06 00:00: 00 Yes [id number] 1 tablet 2 TIMES DAILY 1 tablet 2 TIMES DAILY (route: oral) Med Classific ation: Electroly te Balance-N utritiona l Products pregabalin 50 mg capsule 03-06 00:00: 00 Yes [id number] 1 capsule 2 TIMES DAILY 1 capsule 2 TIMES DAILY (route: oral) Med Classific ation: Central Nervous System Agents spironolact one 25 mg tablet 03-06 00:00: 00 Yes [id number] 1 tablet DAILY 1 tablet DAILY (route: oral) Med Classific ation: Cardiovas cular Therapy Agents Trintellix 10 mg tablet 03-06 00:00: 00 Yes [id number] 1 tablet DAILY 1 tablet DAILY (route: oral) Med Classific ation: Central Nervous System Agents Trulicity 1.5 mg/0.5 mL subcutaneou s pen injector 03-06 00:00: 00 Yes [id number] 1.5 mg WEEKLY 1.5 mg WEEKLY (route: subcutaneo us) Med Classific ation: Endocrine oxygen gas for inhalation 03-10 00:00: 00 Yes [id number] 2 Liter O2 - CONTINUOUS 2 Liter O2 - CONTINUOUS (route: inhalation ) Med Classific ation: Medical Supplies and Durable Medical Equipment (DME) Vital Signs Vital Name Observation Time Observation Value Commen ts Temperature 2025-03-16 11:56:00.000 97.3 [degF] Temperature 2025-03-13 12:46:00.000 97.2 [degF] Temperature 2025-03-10 13:16:00.000 97 [degF] Temperature 2025-03-06 12:20:00.000 97.2 [degF] BMI (%) 2025-03-06 12:20:00.000 44 kg/m2 Height 2025-03-06 12:20:00.000 68 [in_us] Pulse 2025-03-16 11:58:00.000 61 /min Pulse 2025-03-13 12:46:00.000 65 /min Pulse 2025-03-10 13:16:00.000 75 /min Pulse 2025-03-06 12:20:00.000 70 /min O2 Saturation (%) 2025-03-16 11:56:00.000 97 % O2 Saturation (%) 2025-03-13 12:46:00.000 98 % O2 Saturation (%) 2025-03-10 13:16:00.000 92 % O2 Saturation (%) 2025-03-06 12:20:00.000 96 % Respirations 2025-03-16 11:56:00.000 18 /min Respirations 2025-03-13 12:46:00.000 17 /min Respirations 2025-03-10 13:16:00.000 18 /min Respirations 2025-03-06 12:20:00.000 18 /min Weight (lbs) 2025-03-06 12:20:00.000 290 [lb_av] Systolic Blood Pressure 2025-03-16 11:56:00.000 120 mm [Hg] Systolic Blood Pressure 2025-03-13 12:46:00.000 128 mm [Hg] Systolic Blood Pressure 2025-03-10 13:18:00.000 142 mm [Hg] Systolic Blood Pressure 2025-03-06 12:20:00.000 119 mm [Hg] Diastolic Blood Pressure 2025-03-16 11:56:00.000 70 mm [Hg] Diastolic Blood Pressure 2025-03-13 12:46:00.000 68 mm [Hg] Diastolic Blood Pressure 2025-03-10 13:18:00.000 72 mm [Hg] Diastolic Blood Pressure 2025-03-06 12:20:00.000 53 mm [Hg] Plan of Treatment Planned Activity Planned Date Details Comments Future Scheduled Test SKILLED NU RSE TO EVALUATE PATIENT, IDENTIFY PRIMARY AND CO-MORBID CONDITIONS CODED PER CODING GUIDELINES INCLUDING ATHSCL HEART DISEASE OF [place] CORONARY ARTERY W/O ANG PCTRS, OTHER PERSISTENT ATRIAL FIBRILLATION, 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 [code = SKILLED NURSE TO EVALUATE PATIENT, IDENTIFY PRIMARY AND CO-MORBID CONDITIONS CODED PER CODING GUIDELINES INCLUDING ATHSCL HEART DISEASE OF [place] CORONARY ARTERY W/O ANG PCTRS, OTHER PERSISTENT ATRIAL FIBRILLATION, 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] Future Scheduled Test HOME [facility] AGENCY MAY ACCEPT ORDERS FROM THE FOLLOWING PHYSICIANS: ALL PROVIDERS INVOLVED IN CARE [code = HOME HEALTH AGENCY MAY ACCEPT ORDERS FROM THE FOLLOWING PHYSICIANS: ALL PROVIDERS INVOLVED IN CARE] Future Scheduled Test OXYGEN VIA NASAL CANNULA @ 2 LITERS CONTINUOUS. SKILLED NURSE FOR O/A AND SKILLED TEACHING OF SAFE OXYGEN USE IN THE HOME. [code = OXYGEN VIA NASAL CANNULA @ 2 LITERS CONTINUOUS. SKILLED NURSE FOR O/A AND SKILLED TEACHING OF SAFE OXYGEN USE IN THE HOME.] Future Scheduled Test SKILLED NU RSE FOR O/A, TEACHING, AND MANAGEMENT OF CARDIAC DISEASE [code = SKILLED NURSE FOR O/A, TEACHING, AND MANAGEMENT OF CARDIAC DISEASE] Future Scheduled Test SKILLED NU RSE FOR MONITORING, O/A AND TEACHING RELATED TO MANAGEMENT OF ANTICOAGULATION THERAPY INCLUDING DIET, MEDICATION SIDE EFFECTS, SAFETY MEASURES TO PREVENT INJURY, AND S/S TO REPORT. [code = SKILLED NURSE FOR MONITORING, O/A AND TEACHING RELATED TO MANAGEMENT OF ANTICOAGULATION THERAPY INCLUDING DIET, MEDICATION SIDE EFFECTS, SAFETY MEASURES TO PREVENT INJURY, AND S/S TO REPORT.] Future Scheduled Test SKILLED NU RSE TO INSTRUCT PATIENT/CAREGIVER ON SIGNS AND SYMPTOMS, RISK FACTORS, COMPLICATIONS, AND MANAGEMENT OF ATRIAL FIBRILLATION. [code = SKILLED NURSE TO INSTRUCT PATIENT/CAREGIVER ON SIGNS AND SYMPTOMS, RISK FACTORS, COMPLICATIONS, AND MANAGEMENT OF ATRIAL FIBRILLATION.] Future Scheduled Test SKILLED NU RSE TO PROVIDE TEACHING ON SIGNS AND SYMPTOMS AND MANAGEMENT OF HYPERTENSION. [code = SKILLED NURSE TO PROVIDE TEACHING ON SIGNS AND SYMPTOMS AND MANAGEMENT OF HYPERTENSION.] Future Scheduled Test SKILLED NU RSE FOR O/A AND TEACHING OF DIABETIC MANAGEMENT INCLUDING BLOOD SUGAR MONITORING/USE OF GLUCOMETER, DIABETIC DIET, LOWER EXTREMITY SKIN INSPECTION, PROPER SKIN/FOOT CARE, AND SIGNS AND SYMPTOMS HYPO/HYPERGLYCEMIA TO REPORT. [code = SKILLED NURSE FOR O/A AND TEACHING OF DIABETIC MANAGEMENT INCLUDING BLOOD SUGAR MONITORING/USE OF GLUCOMETER, DIABETIC DIET, LOWER EXTREMITY SKIN INSPECTION, PROPER SKIN/FOOT CARE, AND SIGNS AND SYMPTOMS HYPO/HYPERGLYCEMIA TO REPORT.] Future Scheduled Test VIRTUAL SIT FREQUENCY: 12 PRN VIRTUAL VISITS MAY BE PERFORMED UTILIZING TELECOMMUNICATIONS SYSTEM TO OPTIMIZE SKILLED SERVICES FURNISHED ON THE PLAN OF CARE. SKILLED NURSE TO ESTABLISH SUPPORT MEASURES TO MINIMIZE RISK OF REHOSPITALIZATION, AND INSTRUCT PATIENT/CAREGIVER ON METHODS TO REDUCE AVOIDABLE HOSPITALIZATION. [code = VIRTUAL VISIT FREQUENCY: 12 PRN VIRTUAL VISITS MAY BE PERFORMED UTILIZING TELECOMMUNICATIONS SYSTEM TO OPTIMIZE SKILLED SERVICES FURNISHED ON THE PLAN OF CARE. SKILLED NURSE TO ESTABLISH SUPPORT MEASURES TO MINIMIZE RISK OF REHOSPITALIZATION, AND INSTRUCT PATIENT/CAREGIVER ON METHODS TO REDUCE AVOIDABLE HOSPITALIZATION.] Future Scheduled Test PATIENT MAYER S A RISK OF HOSPITALIZATION AND ED USE. SKILLED NURSE TO ESTABLISH SUPPORT MEASURES TO MINIMIZE RISK OF HOSPITALIZATION AND ED USE, AND INSTRUCT PATIENT/CAREGIVER ON METHODS TO REDUCE AVOIDABLE HOSPITALIZATION AND ED USE. [code = PATIENT HAS A RISK OF HOSPITALIZATION AND ED USE. SKILLED NURSE TO ESTABLISH SUPPORT MEASURES TO MINIMIZE RISK OF HOSPITALIZATION AND ED USE, AND INSTRUCT PATIENT/CAREGIVER ON METHODS TO REDUCE AVOIDABLE HOSPITALIZATION AND ED USE.] Future Scheduled Test SKILLED NU RSE TO PROVIDE INSTRUCTION TO PATIENT/CAREGIVER RELATED TO DISCHARGE PLANNING. [code = SKILLED NURSE TO PROVIDE INSTRUCTION TO PATIENT/CAREGIVER RELATED TO DISCHARGE PLANNING.] Future Scheduled Test SKILLED NU RSE TO PERFORM ENVIRONMENTAL SAFETY RISK ASSESSMENT AND FALL RISK ASSESSMENT AND PROVIDE INSTRUCTION TO IMPLEMENT ENVIRONMENTAL SAFETY AND FALL PREVENTION STRATEGIES THROUGHOUT THE CERTIFICATION PERIOD. SKILLED NURSE WILL MAINTAIN SITUATIONAL AWARENESS AND WILL NOTIFY CLINICAL PAINTING TRADES WORKER AND PHYSICIAN/PROVIDER WITH ANY CHANGE IN CONDITION. 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 SKILLED NURSE WILL MAINTAIN SITUATIONAL AWARENESS AND WILL NOTIFY CLINICAL PAINTING TRADES WORKER AND PHYSICIAN/PROVIDER WITH ANY CHANGE IN CONDITION.] Future Scheduled Test SKILLED NU RSE FOR OBSERVATION AND ASSESSMENT OF PATIENT S PAIN LEVEL AND EFFECTIVENESS OF PAIN MANAGEMENT REGIMEN. SKILLED NURSE TO INSTRUCT PATIENT/CAREGIVER REGARDING PHARMACOLOGIC AND NON-PHARMACOLOGIC PAIN CONTROL MEASURES. SKILLED NURSE TO REPORT TO PHYSICIAN IF PAIN LEVEL IS OUTSIDE OF ESTABLISHED PARAMETERS. [code = SKILLED NURSE FOR OBSERVATION AND ASSESSMENT OF PATIENT S PAIN LEVEL AND EFFECTIVENESS OF PAIN MANAGEMENT REGIMEN. SKILLED NURSE TO INSTRUCT PATIENT/CAREGIVER REGARDING PHARMACOLOGIC AND NON-PHARMACOLOGIC PAIN CONTROL MEASURES. SKILLED NURSE TO REPORT TO PHYSICIAN IF PAIN LEVEL IS OUTSIDE OF ESTABLISHED PARAMETERS.] Future Scheduled Test SKILLED NU RSE TO ASSESS PATIENT'S SKIN INTEGRITY AND INSTRUCT PATIENT/CAREGIVER ON MEASURES TO PREVENT PRESSURE ULCERS. [code = SKILLED NURSE TO ASSESS PATIENT'S SKIN INTEGRITY AND INSTRUCT PATIENT/CAREGIVER ON MEASURES TO PREVENT PRESSURE ULCERS.] Future Scheduled Test SKILLED NU RSE TO REVIEW PATIENT MEDICATIONS (PRESCRIPTION/OTC). INSTRUCT PATIENT/CAREGIVER ON ALL MEDICATIONS INCLUDING PURPOSE, WHEN TO TAKE, IMPORTANCE OF MEDICATION ADHERENCE, MONITORING OF EFFECTIVENESS, ADVERSE DRUG REACTIONS, POSSIBLE SIDE EFFECTS, AND WHEN TO NOTIFY AGENCY OR PHYSICIAN/PROVIDER OF ANY CONCERNS. [code = SKILLED NURSE TO REVIEW PATIENT MEDICATIONS (PRESCRIPTION/OTC). INSTRUCT PATIENT/CAREGIVER ON ALL MEDICATIONS INCLUDING PURPOSE, WHEN TO TAKE, IMPORTANCE OF MEDICATION ADHERENCE, MONITORING OF EFFECTIVENESS, ADVERSE DRUG REACTIONS, POSSIBLE SIDE EFFECTS, AND WHEN TO NOTIFY AGENCY OR PHYSICIAN/PROVIDER OF ANY CONCERNS.] Future Scheduled Test PHYSICAL T HERAPIST TO EVALUATE PATIENT SECONDARY TO FUNCTIONAL DEFICITS/SAFETY CONCERNS. PHYSICAL THERAPY TO ESTABLISH /UPGRADE/DOWNGRADE THERAPEUTIC EXERCISE PROGRAM AND INSTRUCT PATIENT/CAREGIVER ON EXERCISE PRECAUTIONS WITH WRITTEN HOME PROGRAM. MAY INCLUDE AAROM, AROM, RROM APPROPRIATE TO IMPROVE FUNCTIONAL STRENGTH AND RANGE OF MOTION. PHYSICAL THERAPY TO INSTRUCT PATIENT/CAREGIVER ON GAIT TRAINING TECHNIQUES USING APPROPRIATE ASSISTIVE DEVICE, PROPER BODY MECHANICS TO IMPROVE MOBILITY, AND PREVENT INJURY OF PATIENT AND/OR CAREGIVER. PHYSICAL THERAPY TO ASSESS AND RECOMMEND HOME SAFETY ADAPTATIONS AND EDUCATE PATIENT /CAREGIVER ON FALL PREVENTION STRATEGIES. [code = PHYSICAL THERAPIST TO EVALUATE PATIENT SECONDARY TO FUNCTIONAL DEFICITS/SAFETY CONCERNS. PHYSICAL THERAPY TO ESTABLISH /UPGRADE/DOWNGRADE THERAPEUTIC EXERCISE PROGRAM AND INSTRUCT PATIENT/CAREGIVER ON EXERCISE PRECAUTIONS WITH WRITTEN HOME PROGRAM. MAY INCLUDE AAROM, AROM, RROM APPROPRIATE TO IMPROVE FUNCTIONAL STRENGTH AND RANGE OF MOTION. PHYSICAL THERAPY TO INSTRUCT PATIENT/CAREGIVER ON GAIT TRAINING TECHNIQUES USING APPROPRIATE ASSISTIVE DEVICE, PROPER BODY MECHANICS TO IMPROVE MOBILITY, AND PREVENT INJURY OF PATIENT AND/OR CAREGIVER. PHYSICAL THERAPY TO ASSESS AND RECOMMEND HOME SAFETY ADAPTATIONS AND EDUCATE PATIENT /CAREGIVER ON FALL PREVENTION STRATEGIES.] Goal Patient Goal - G ET STRONGER AVOID HOSPITALIZATION Goal Provider Goal - A PLAN OF CARE WILL BE ESTABLISHED THAT MEETS PATIENT'S USP NEEDS AND INCLUDES PATIENT GOAL FOR HOME HEALTH. Goal Provider Goal - ADDITIONAL ORDERS WILL BE RECEIVED FROM ALTERNATE PHYSICIAN IN A TIMELY MANNER THROUGHOUT THE CERTIFICATION PERIOD. Goal Provider Goal - PATIENT/CAREGIVER WILL VERBALIZE/DEMONSTRATE UNDERSTANDING OF SAFE OXYGEN USE IN THE HOME THROUGHOUT THE EPISODE. Goal Provider Goal - PATIENT/CAREGIVER WILL VERBALIZE/DEMONSTRATE MANAGEMENT OF CARDIAC DISEASE PROCESS AND EXACERBATIONS WILL BE IDENTIFIED AND PROMPTLY REPORTED THROUGHOUT THE CERTIFICATION PERIOD. Goal Provider Goal - PATIENT/CAREGIVER WILL VERBALIZE/DEMONSTRATE UNDERSTANDING OF MANAGEMENT OF ANTICOAGULATION THERAPY BY END OF EPISODE. Goal Provider Goal - PATIENT/CAREGIVER WILL VERBALIZE UNDERSTANDING OF SIGNS AND SYMPTOMS, COMPLICATIONS, AND MANAGEMENT OF ATRIAL FIBRILLATION THROUGHOUT THE CERTIFICATION PERIOD. Goal Provider Goal - PATIENT/CAREGIVER WILL VERBALIZE SIGNS AND SYMPTOMS OF HYPERTENSION AND WILL BE ABLE TO DEMONSTRATE ABILITY TO MANAGE EXACERBATION BY END OF THE EPISODE. Goal Provider Goal - PATIENT/CAREGIVER WILL VERBALIZE/DEMONSTRATE KNOWLEDGE OF DIABETIC MANAGEMENT. CHANGES IN DIABETIC STATUS WILL BE IDENTIFIED AND REPORTED TO PHYSICIAN FOR PROMPT INTERVENTION THROUGHOUT THE CERTIFICATION PERIOD. Goal Provider Goal - PATIENT/CAREGIVER WILL UTILIZE VIRTUAL VISITS TO ACHIEVE GOALS OUTLINED ON THE PLAN OF CARE. PATIENT WILL HAVE SUPPORT MEASURES ESTABLISHED TO PREVENT HOSPITALIZATION AND PATIENT/CAREGIVER WILL VERBALIZE/DEMONSTRATE METHODS TO REDUCE AVOIDABLE HOSPITALIZATION THROUGHOUT THE CERTIFICATION PERIOD. Goal Provider Goal - PATIENT WILL HAVE SUPPORT MEASURES ESTABLISHED TO PREVENT HOSPITALIZATION AND ED USE AND PATIENT/CAREGIVER WILL VERBALIZE/DEMONSTRATE METHODS TO REDUCE AVOIDABLE HOSPITALIZATION AND ED USE BY END OF EPISODE. Goal Provider Goal - PATIENT/CAREGIVER WILL VERBALIZE UNDERSTANDING OF DISCHARGE PLANNING INSTRUCTIONS BY DATE OF DISCHARGE. Goal Provider Goal - PATIENT/CAREGIVER WILL VERBALIZE/DEMONSTRATE EFFECTIVE ENVIRONMENTAL SAFETY AND FALL PREVENTION STRATEGIES, WILL REMAIN SAFE IN THE COMMUNITY, AND WILL BE FREE OF DANGER TO SELF AND OTHERS THROUGHOUT THE CERTIFICATION PERIOD. Goal Provider Goal - PATIENT/CAREGIVER WILL DEMONSTRATE UNDERSTANDING OF PHARMACOLOGIC AND NONPHARMACOLOGIC PAIN CONTROL MEASURES AND PATIENT WILL HAVE IMPROVEMENT IN PAIN INTERFERING WITH ACTIVITY EVIDENCED BY PAIN AT A LEVEL THAT IS ACCEPTABLE TO THE PATIENT AND PAIN LEVEL WITHIN ESTABLISHED PARAMETERS BY END OF CERTIFICATION PERIOD. Goal Provider Goal - PATIENT/CAREGIVER WILL VERBALIZE UNDERSTANDING OF PRESSURE ULCER PREVENTION BY END OF THE EPISODE. Goal Provider Goal - PATIENT/CAREGIVER WILL VERBALIZE UNDERSTANDING OF EDUCATION PROVIDED ON MEDICATIONS BY THE END OF THE CERTIFICATION PERIOD. Goal Provider Goal - PHYSICAL THERAPY EVALUATION TO BE COMPLETED WITH RECOMMENDATIONS AND/OR WRITTEN TREATMENT PLAN OF CARE ESTABLISHED FOR THE PHYSICIAN S SIGNATURE PATIENT/CAREGIVER WILL PERFORM THERAPEUTIC EXERCISE/S AND DEMONSTRATE PARTICIPATION IN A HOME PROGRAM. PATIENT/CAREGIVER WILL DEMONSTRATE IMPROVED GAIT TECHNIQUES TO MINIMIZE RISK OF INJURY. PATIENT/CAREGIVER WILL DEMONSTRATE/VERBALIZE UNDERSTANDING OF RECOMMENDATIONS TO INCREASE SAFETY IN THE HOME AND FALL PREVENTION. Encounters Start Date/Time End Date/Time Encounter Type Admission Type Attending [facility] Care Facility Care Department Encounter ID Discharge Date Discharge Status Discharge Condition Discharge Reason Percent Goals Met 2025-03-06 00:00:00 2025-05-04 00:00:00 [facility] [id number]
--- OUTSIDE RECORDS SUMMARY | 2025-05-03 19:00 | XMS_ITS | Clinical Summary ---
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 Active 06-18 00:00: [...] ON SUPPLEMENTAL OXYGEN Active 06-18 00:00: 00 SHELTER (CURRENT) USE OF ASPIRIN Active 06-18 00:00: 00 INTERACTIVE DESIGNER (CURRENT) USE OF ANTICOAGULAN TS Active 06-18 00:00: 00 INTERACTIVE DESIGNER (CURRENT) USE OF ANTITHROMBOT ICS/ANTIPLAT ELETS Active [...] 02-03 00:00: 00 02-11 00:00 :00 No [id number] Per instruc tions Per instructio ns (route: oral) Med Classific ation: Central Nervous System Agents Breo Ellipta 200 mcg-25 mcg/dose powder for inhalation 01-31 00:00: 00 06-01 23:59 :00 No [id number] 1 inhalat ion DAILY 1 inhalation DAILY (route: inhalation ) Med Classific ation: Respirato ry Therapy Agents bumetanide 2 mg tablet 01-31 00:00: 06-01 23:59 :00 No [id number] 2 mg DAILY 2 mg DAILY (route: oral) Med Classific ation: Cardiovas cular Therapy Agents methylpredn isolone 4 mg tablets in a dose pack 01-31 00:00: 00 02-11 00:00 :00 No [id number] Per instruc tions Per instructio ns (route: oral) Med Classific ation: Endocrine Lantus U-100 Insulin 100 unit/mL subcutaneou s solution 01-29 00:00: 00 06-01 23:59 :00 No [id number] 90 unit 2 TIMES DAILY 90 unit 2 TIMES DAILY (route: subcutaneo us) Med Classific ation: Endocrine allopurinol 300 mg tablet 01-27 00:00: 00 06-01 23:59 :00 No [id number] 1 tablet DAILY 1 tablet DAILY (route: oral) Med Classific ation: Gout and Hyperuric emia Therapy diltiazem ER 120 mg tablet,exte nded release 24 hr 01-27 00:00: 00 06-01 23:59 :00 No [id number] 1 tablet DAILY 1 tablet DAILY (route: oral) Med Classific ation: Cardiovas cular Therapy Agents Eliquis 5 mg tablet 01-27 00:00: 00 06-01 23:59 :00 No [id number] 1 tablet 2 TIMES DAILY 1 tablet 2 TIMES DAILY (route: oral) Med Classific ation: Hematolog ical Agents furosemide 40 mg tablet 01-27 00:00: 00 02-11 00:00 :00 No [id number] Per instruc tions TWICE DAILY Per instructio ns TWICE DAILY (route: oral) Med Classific ation: Cardiovas cular Therapy Agents levothyroxi ne 50 mcg tablet 01-27 00:00: 00 06-01 23:59 :00 No [id number] 1 tablet DAILY 1 tablet DAILY (route: oral) Med Classific ation: Endocrine potassium chloride ER 20 mEq tablet,exte nded release(par t/cryst) 01-27 00:00: 00 06-01 23:59 :00 No [id number] 1 tablet 2 TIMES DAILY 1 tablet 2 TIMES DAILY (route: oral) Med Classific ation: Electroly billie [place]N [place] Products simvastatin 10 mg tablet 01-27 00:00: 00 02-11 00:00 :00 No [id number] Per instruc tions EVERY Per instructio ns EVERY (route: oral) Med Classific ation: Cardiovas cular Therapy Agents acetazolami de 250 mg tablet 01-21 00:00: 00 02-11 00:00 :00 No [id number] Per instruc tions DAILY Per instructio ns DAILY (route: oral) Med Classific ation: Cardiovas cular Therapy Agents lorazepam 1 mg tablet 01-17 00:00: 00 06-01 23:59 :00 No [id number] 1 tablet 2 TIMES DAILY 1 tablet 2 TIMES DAILY (route: oral) Med Classific ation: Central Nervous System Agents metoprolol tartrate 100 mg tablet 01-13 00:00: 00 06-01 23:59 :00 No [id number] 1 tablet 2 TIMES DAILY 1 tablet 2 TIMES DAILY (route: oral) Med Classific ation: Cardiovas cular Therapy Agents Ozempic 0.25 mg or 0.5 mg (2 mg/3 mL) subcutaneou s pen injector 01-10 00:00: 00 06-01 23:59 :00 No [id number] Per instruc tions ONCE EVERY SEVEN DAYS Per instructio ns ONCE EVERY SEVEN DAYS (route: subcutaneo us) Med Classific ation: Endocrine buspirone 10 mg tablet 01-09 00:00: 00 06-01 23:59 :00 No [id number] 1 tablet 3 TIMES DAILY 1 tablet 3 TIMES DAILY (route: oral) Med Classific ation: Central Nervous System Agents Trintellix 10 mg tablet 01-09 00:00: 00 06-01 23:59 :00 No [id number] 1 tablet DAILY 1 tablet DAILY (route: oral) Med Classific ation: Central Nervous System Agents pregabalin 50 mg capsule 01-06 00:00: 00 06-01 23:59 :00 No [id number] 1 capsule 2 TIMES DAILY 1 capsule 2 TIMES DAILY (route: oral) Med Classific ation: Central Nervous System Agents acetaminoph en 500 mg tablet 02-11 00:00: 00 06-01 23:59 :00 No [id number] 2 tablet EVERY 6 HOURS 2 tablet EVERY 6 HOURS (route: oral) Med Classific ation: Analgesic , Anti-infl ammatory or Antipyret ic cholecalcif frandy (vitamin D3) 50 mcg (2,000 unit) capsule 02-11 00:00: 00 06-01 23:59 :00 No [id number] 1 capsule DAILY 1 capsule DAILY (route: oral) Med Classific ation: Electroly te Balance-N utritiona l Products clopidogrel 75 mg tablet 02-11 00:00: 00 06-01 23:59 :00 No [id number] 1 tablet DAILY 1 tablet DAILY (route: oral) Med Classific ation: Hematolog ical Agents cyanocobala min (vit B-12) 1,000 mcg tablet 02-11 00:00: 00 06-01 23:59 :00 No [id number] 1 tablet DAILY 1 tablet DAILY (route: oral) Med Classific ation: Electroly te Balance-N utritiona l Products hydralazine 50 mg tablet 02-11 00:00: 00 06-01 23:59 :00 No [id number] 1 tablet 3 TIMES DAILY 1 tablet 3 TIMES DAILY (route: oral) Med Classific ation: Cardiovas cular Therapy Agents hydrocodone 5 mg-acetamin ophen 325 mg tablet 02-11 00:00: 00 06-01 23:59 :00 No [id number] 1 tablet EVERY 6 HOURS 1 tablet EVERY 6 HOURS (route: oral) Med Classific ation: Analgesic , Anti-infl ammatory or Antipyret ic ipratropium bromide 0.02 % solution for inhalation 02-11 00:00: 06-01 23:59 :00 No [id number] 0.5 mg EVERY 6 HOURS 0.5 mg EVERY 6 HOURS (route: inhalation ) Med Classific ation: Respirato ry Therapy Agents ketoconazol e 2 % shampoo 02-11 00:00: 00 06-01 23:59 :00 No [id number] 1 mL DIRECTED 1 mL DIRECTED (route: topical) Med Classific ation: Dermatolo gical ketoconazol e 2 % topical cream 02-11 00:00: 00 06-01 23:59 :00 No [id number] 1 inch 2 TIMES DAILY 1 inch 2 TIMES DAILY (route: topical) Med Classific ation: Dermatolo gical levalbutero l 0.63 mg/3 mL solution for nebulizatio n 02-11 00:00: 00 06-01 23:59 :00 No [id number] 3 mL EVERY 6 HOURS 3 mL EVERY 6 HOURS (route: inhalation ) Med Classific ation: Respirato ry Therapy Agents levofloxaci n 750 mg tablet 02-11 00:00: 00 02-14 23:59 :00 No [id number] 1 tablet DAILY 1 tablet DAILY (route: oral) Med Classific ation: Anti-Infe ctive Agents Medrol 4 mg tablet 02-11 00:00: 00 02-19 23:59 :00 No [id number] Per instruc tions DAILY Per instructio ns DAILY (route: oral) Med Classific ation: Endocrine metolazone 10 mg tablet 02-11 00:00: 00 06-01 23:59 :00 No [id number] 1 tablet DAILY 1 tablet DAILY (route: oral) Med Classific ation: Cardiovas cular Therapy Agents nitroglycer in 0.4 mg sublingual tablet 02-11 00:00: 00 06-01 23:59 :00 No [id number] 1 tablet DIRECTED 1 tablet DIRECTED (route: sublingual ) Med Classific ation: Cardiovas cular Therapy Agents ondansetron 4 mg disintegrat ing tablet 02-11 00:00: 00 06-01 23:59 :00 No [id number] 1 tablet EVERY 8 HOURS 1 tablet EVERY 8 HOURS (route: oral) Med Classific ation: Gastroint estinal Therapy Agents Robitussin ER 30 mg/5 mL oral suspension, extended release 02-11 00:00: 00 06-01 23:59 :00 No [id number] 5 mL EVERY 12 HOURS 5 mL EVERY 12 HOURS (route: oral) Med Classific ation: Respirato ry Therapy Agents simvastatin 40 mg tablet 02-11 00:00: 00 06-01 23:59 :00 No [id number] 1 tablet BEDTIME 1 tablet BEDTIME (route: oral) Med Classific ation: Cardiovas cular Therapy Agents triamcinolo ne acetonide 0.1 % topical ointment 02-11 00:00: 00 06-01 23:59 :00 No [id number] 1 inch 2 TIMES DAILY 1 inch 2 TIMES DAILY (route: topical) Med Classific ation: Dermatolo gical oxygen gas for inhalation 02-14 00:00: 00 06-01 23:59 :00 No [id number] 3 Liter O2 - CONTINUOUS 3 Liter O2 - CONTINUOUS (route: inhalation ) Med Classific ation: Medical Supplies and Durable Medical Equipment (DME) fluconazole 200 mg tablet 02-20 00:00: 00 02-25 23:59 :00 No [id number] 1 tablet EVERY 72 HOURS 1 tablet EVERY 72 HOURS (route: oral) Med Classific ation: Anti-Infe ctive Agents Nystop 100,000 unit/gram topical powder 02-20 00:00: 00 06-01 23:59 :00 No [id number] 1 unit 2 TIMES DAILY 1 unit 2 TIMES DAILY (route: topical) Med Classific ation: Dermatolo gical acetaminoph en 500 mg tablet 03-06 00:00: 00 Yes [id number] 2 tablet EVERY 6 HOURS 2 tablet EVERY 6 HOURS (route: oral) Med Classific ation: Analgesic , Anti-infl ammatory or Antipyret ic allopurinol 300 mg tablet 03-06 00:00: 00 Yes [id number] 1 tablet DAILY 1 tablet DAILY (route: oral) Med Classific ation: Gout and Hyperuric emia Therapy aspirin 81 mg tablet 03-06 00:00: 00 Yes [id number] 1 tablet DAILY 1 tablet DAILY (route: oral) Med Classific ation: Hematolog ical Agents atorvastati n 40 mg tablet 03-06 00:00: 00 Yes [id number] 1 tablet DAILY 1 tablet DAILY (route: oral) Med Classific ation: Cardiovas cular Therapy Agents budesonide 0.5 mg/2 mL suspension for nebulizatio n 03-06 00:00: 00 Yes [id number] 2 mL 2 TIMES DAILY 2 mL 2 TIMES DAILY (route: inhalation ) Med Classific ation: Respirato ry Therapy Agents buspirone 10 mg tablet 03-06 00:00: 00 Yes [id number] 1 tablet 3 TIMES DAILY 1 tablet 3 TIMES DAILY (route: oral) Med Classific ation: Central Nervous System Agents cholecalcif frandy (vitamin D3) 50 mcg (2,000 unit) tablet 03-06 00:00: 00 Yes [id number] 1 tablet DAILY 1 tablet DAILY (route: oral) Med Classific ation: Electroly te Balance-N utritiona l Products clopidogrel 75 mg tablet 03-06 00:00: 00 Yes [id number] 1 tablet DAILY 1 tablet DAILY (route: oral) Med Classific ation: Hematolog ical Agents cyanocobala min (vit B-12) 1,000 mcg tablet 03-06 00:00: 00 Yes [id number] 1 tablet DAILY 1 tablet DAILY (route: oral) Med Classific ation: Electroly te Balance-N utritiona l Products Eliquis 5 mg tablet 03-06 00:00: 00 Yes [id number] 1 tablet 2 TIMES DAILY 1 tablet 2 TIMES DAILY (route: oral) Med Classific ation: Hematolog ical Agents ferrous sulfate 325 mg (65 mg iron) tablet 03-06 00:00: 00 Yes [id number] 1 tablet 2 TIMES DAILY 1 tablet 2 TIMES DAILY (route: oral) Med Classific ation: Electroly te Balance-N utritiona l Products furosemide 40 mg tablet 03-06 00:00: 00 Yes [id number] 1 tablet 2 TIMES DAILY 1 tablet 2 TIMES DAILY (route: oral) Med Classific ation: Cardiovas cular Therapy Agents hydralazine 25 mg tablet 03-06 00:00: 00 Yes [id number] 1 tablet 3 TIMES DAILY 1 tablet 3 TIMES DAILY (route: oral) Med Classific ation: Cardiovas cular Therapy Agents isosorbide mononitrate ER 30 mg tablet,exte nded release 24 hr 03-06 00:00: 00 Yes [id number] 1 tablet DAILY 1 tablet DAILY (route: oral) Med Classific ation: Cardiovas cular Therapy Agents Lantus Solostar U-100 Insulin 100 unit/mL (3 mL) subcutaneou s pen 03-06 00:00: 00 Yes [id number] 30 unit 2 TIMES DAILY 30 unit 2 TIMES DAILY (route: subcutaneo us) Med Classific ation: Endocrine levothyroxi ne 50 mcg tablet 03-06 00:00: 00 Yes [id number] 1 tablet DAILY 1 tablet DAILY (route: oral) Med Classific ation: Endocrine lorazepam 1 mg tablet 03-06 00:00: 00 Yes [id number] 1 tablet 2 TIMES DAILY 1 tablet 2 TIMES DAILY (route: oral) Med Classific ation: Central Nervous System Agents metoprolol tartrate 25 mg tablet 03-06 00:00: 00 Yes [id number] 1 tablet 2 TIMES DAILY 1 tablet 2 TIMES DAILY (route: oral) Med Classific ation: Cardiovas cular Therapy Agents nitroglycer in 0.4 mg sublingual tablet 03-06 00:00: 00 Yes [id number] 1 tablet DIRECTED 1 tablet DIRECTED (route: sublingual ) Med Classific ation: Cardiovas cular Therapy Agents Novolin N FlexPen 100 unit/mL (3 mL) subcutaneou s insulin pen 03-06 00:00: 00 Yes [id number] Per instruc tions DIRECTED Per instructio ns DIRECTED (route: subcutaneo us) Med Classific ation: Endocrine potassium chloride ER 20 mEq tablet,exte nded release 03-06 00:00: 00 Yes [id number] 1 tablet 2 TIMES DAILY 1 tablet 2 TIMES DAILY (route: oral) Med Classific ation: Electroly te Balance-N utritiona l Products pregabalin 50 mg capsule 03-06 00:00: 00 Yes [id number] 1 capsule 2 TIMES DAILY 1 capsule 2 TIMES DAILY (route: oral) Med Classific ation: Central Nervous System Agents spironolact one 25 mg tablet 03-06 00:00: 00 Yes [id number] 1 tablet DAILY 1 tablet DAILY (route: oral) Med Classific ation: Cardiovas cular Therapy Agents Trintellix 10 mg tablet 03-06 00:00: 00 Yes [id number] 1 tablet DAILY 1 tablet DAILY (route: oral) Med Classific ation: Central Nervous System Agents Trulicity 1.5 mg/0.5 mL subcutaneou s pen injector 03-06 00:00: 00 Yes [id number] 1.5 mg WEEKLY 1.5 mg WEEKLY (route: subcutaneo us) Med Classific ation: Endocrine oxygen gas for inhalation 03-10 00:00: 00 Yes [id number] 2 Liter O2 - CONTINUOUS 2 Liter [...] CODING GUIDELINES INCLUDING ATHSCL HEART DISEASE OF [place] CORONARY ARTERY W/O ANG PCTRS, OTHER PERSISTENT [...] CODING GUIDELINES INCLUDING ATHSCL HEART DISEASE OF [place] CORONARY ARTERY W/O ANG PCTRS, OTHER PERSISTENT [...] MAINTAIN SITUATIONAL AWARENESS AND WILL NOTIFY CLINICAL MICROBIOLOGY INSTRUCTOR AND PHYSICIAN/PROVIDER WITH ANY CHANGE IN CONDITION. 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 SKILLED NURSE WILL MAINTAIN SITUATIONAL AWARENESS AND WILL NOTIFY CLINICAL MICROBIOLOGY INSTRUCTOR AND PHYSICIAN/PROVIDER WITH ANY CHANGE IN CONDITION.] [...] CARE WILL BE ESTABLISHED THAT MEETS PATIENT'S CARE HOME NEEDS AND INCLUDES PATIENT GOAL FOR HOME [...] End Date/Time Encounter Type Admission Type Attending [facility] Care Facility Care Department Encounter ID Discharge Date Discharge Status Discharge Condition Discharge Reason Percent Goals Met 2025-03-06 00:00:00 2025-05-04 00:00:00 [id number]
== END 2025-03-22 17:34 | disposition home or self-care (01) ==
PROVIDERS: Emergency Provider Emergency Medicine; PCP Family Medicine
DX: R51.9 Headache, unspecified (principal); H57.11 Ocular pain, right eye; Z79.4 Long term (current) use of insulin; Z79.02 Long term (current) use of antithrombotics/antiplatelets; Z79.82 Long term (current) use of aspirin; E11.22 Type 2 diabetes mellitus with diabetic chronic kidney disease; I13.0 Hypertensive heart and chronic kidney disease with heart failure and stage 1 through stage 4 chronic kidney disease, or unspecified chronic kidney disease; N18.9 Chronic kidney disease, unspecified; I50.9 Heart failure, unspecified; J44.9 Chronic obstructive pulmonary disease, unspecified; I25.110 Atherosclerotic heart disease of native coronary artery with unstable angina pectoris
CPT/HCPCS: 99283; J9999

== ENCOUNTER → 2025-05-04 08:45 | Outpatient (BNVA) | payer MEDICARE, MEDICAID, SELFPAY | PROVIDERS: PCP Family Medicine; Visit Provider Internal Medicine Cardiovascular Disease | DX: I25.10 Atherosclerotic heart disease of native coronary artery without angina pectoris (principal); I49.5 Sick sinus syndrome; I48.91 Unspecified atrial fibrillation; Z79.01 Long term (current) use of anticoagulants; I13.0 Hypertensive heart and chronic kidney disease with heart failure and stage 1 through stage 4 chronic kidney disease, or unspecified chronic kidney disease; E11.22 Type 2 diabetes mellitus with diabetic chronic kidney disease; E11.65 Type 2 diabetes mellitus with hyperglycemia; N18.9 Chronic kidney disease, unspecified; I50.9 Heart failure, unspecified; Z79.4 Long term (current) use of insulin; Z95.5 Presence of coronary angioplasty implant and graft | CPT/HCPCS: 99214 ==